=== PATIENT | female | born 2000 | race Caucasian/White ===

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

== ENCOUNTER 2021-03-16 08:58 | Emergency (ER) | payer OTHER, SELFPAY ==
[2021-03-16 08:59] VITALS: BP 147/108; PULSE 227; RESP 24; TEMP 36.4; O2SAT 99; BMI 21.9
[2021-03-16 09:01] VITALS: BMI 22.2
--- NOTE | 2021-03-16 09:02 | XR_ITS ---
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 The lungs are clear without infiltrates, suspicious nodules, or pleural effusions. Minimal midthoracic curvature convex right. IMPRESSION: No acute findings. Dictated by: Mohan Schneider MD 03/16/2021 09:57 Mohan Schneider MD in [place] 03/16/2021 09:57
[2021-03-16 09:24] VITALS: BP 147/118; PULSE 182; RESP 17; O2SAT 100
[2021-03-16 09:26] VITALS: BP 166/87; PULSE 172; RESP 20; O2SAT 100
[2021-03-16 09:30] VITALS: BP 145/103; PULSE 93; RESP 16
[2021-03-16 10:00] VITALS: BP 141/88; PULSE 92; RESP 20; O2SAT 100
--- NOTE | 2021-03-16 10:02 | HMH.CNCARD ---
History of Present Illness Consult date: 03/16/21 Requesting physician: Rolando Torres Consult reason: chest pain Chief complaint: SVT Additional Medical History:: 1. Bipolar disorder 2. Thyroid nodules, likely benign with no significant changes in size by ultrasound from 2017 to 2019 3. SVT A. Converted with adenosine 6 mg and then 12 mg IV on 03/16/2021 4. History of heart murmur as a child A. Echo, 08/2019, 1. Normal left ventricular size, preserved left ventricular systolic function, visually estimated ejection fraction 55% with no regional wall motion abnormality, diastolic parameters are within normal range. 2. Trace mitral and tricuspid regurgitation of no hemodynamic significance. 3. No significant pericardial effusion noted. Electronically signed by : Matty Bob, 08/27/2019 20:12:33 History of present illness: 20 yo WF seen in ER for acute onset of rapid HR, SOA and chest pain this AM. Seen in ER with telemetry showing narrow complex tachycardia with rate of 200 bpm. Asked to see the patient by ER due to ER MD involved in intubation in ICU. Pt was given adenosine 6 mg without response followed by 12 mg IV with subsequent conversion to NSR with rate in the 90's. Symptoms of chest pain and SOA resolved thereafter. Pt relates similar episodes over the past year. Denies excessive caffeine use or illegal drug use. Smokes cigarettes and vape daily. Denies alcohol use. [facility] History Medical History: Reports:: Heart Murmur Denies:: Cancer, Diabetes Mellitus Type 1, Diabetes Mellitus Type 2, Internal Pacemaker, MRSA, Seizures *Have you ever received a pneumonia vaccine?: No *Have you received a flu vaccine this season?: No Other Medical History: Reports: Other. Denies: Blood Transfusion Reaction Laterality Cases: Left: Other Other Surgeries: Yes: EGD. No: Pacemaker Amputation: No Fractures: No - *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 Smoking Status: Current every day smoker Tobacco Type: e-cigarettes # Packs/Day (cigarettes): 3 Alcohol Intake: never Alcohol Intake Frequency:: holidays/special occasions only Substance Use Type: denies use *Occupational Status:: employed Housing: house Household Members: family *Travel in the last 8 weeks: None Family Hx:: Cancer, Diabetes, Heart Attack, Hyperlipidemia, Hypertension, Kidney Disease, Stroke Meds Home Medications Medication Instructions Recorded Confirmed Type norethindrone 1 mg-ethin. 1 cap PO DAILY #28 cap 02/05/21 Rx estradiol 20 mcg (24)-iron 75 mg (4) capsule aripiprazole 5 mg tablet 5 mg PO QHS #30 tab 02/23/21 Rx Allergies Allergy/AdvReac Type Severity Reaction Status Date / Time erythromycin base Allergy Mild Verified 01/11/21 10:20 [ERYTHROMYCIN BASE] Exam I & O for Last 24 hours: Intake & Output 03/13/21 03/14/21 03/15/21 03/16/21 11:59 11:59 11:59 11:59 Weight 138 lb - Constitutional no acute distress - *Routine HEENT Exam Head: Present: normocephalic Eye: Present: EOMI, PERRL ENT: Present: mucous membranes moist - *Routine Neck Exam Present: supple. Absent: lymphadenopathy - *Routine Respiratory Exam Present: CTA bilaterally - *Routine Cardiovascular Exam Present: RRR - *Routine Abdominal Exam Present: soft, normoactive bowel sounds. Absent: tenderness - *Routine Extremities Exam Absent: cyanosis, clubbing, edema - *Routine Skin Exam Present: warm. Absent: rash - *Routine Neurological Exam Present: alert, oriented X3 Review of Systems - Review of Systems Review of systems:: pertinent systems reviewed and negative unless documented below Assessment and Plan (1) SVT (supraventricular tachycardia) Status: Acute Category: Medical Code(s): I47.1 - Supraventricular tachycardia (2) Bipolar disorder Status: Acute Category: Medical Code(s): F31.9 - Bipolar disorder, unspecified - Assessment and plan all Dx Assessment and Plan for all problems:: 1. SVT, converted with
[2021-03-16 10:08] LABS: Microscopic, Urine URINE MICROSCOPIC (MICROSCOPIC)
[2021-03-16 10:09] LABS: Basophils % 0.5 % (0.1-2.0); Eosinophils % 0.5 % (0.1-12.0); Hematocrit 40.9 % (37.0-47.0); Hemoglobin 13.4 g/dL (12.2-16.2); Lymphocytes # 1.2 K/mm3 (0.7-4.5); Mean Corpuscular HGB Conc 32.8 g/dL (31.8-35.4); Mean Corpuscular Hemoglobin 30.3 pg (27.0-31.2); Mean Corpuscular Volume 92.4 fl (81-99); Mean Platelet Volume 7.3 fl (7.4-10.4); Monocytes # 0.2 K/mm3 (0.1-1.0); Neutrophils # 4.3 K/mm3 (1.8-7.8); Platelet Count 297 K/mm3 (142-424); Red Blood Count 4.42 M/mm3 (4.20-5.40); Red Cell Distribution Width 12.3 % (11.5-17.5); White Blood Count 5.7 K/mm3 (4.5-13.0)
[2021-03-16 10:11] LABS: Appearance,Urine CLEAR (Clear); Bilirubin,Urine Negative (Negative); Blood, Urine Negative (Negative); Color,Urine YELLOW (Yellow); Glucose,Urine (UA) Negative (Negative); Ketones,Urine Negative (Negative); Leukocyte Esterase,Urine 1+ (Negative); Nitrate,Urine Negative (Negative); Protein,Urine Negative (Negative); Specific Gravity, Urine <= 1.005 (1.005-1.030); Urobilinogen,Urine 0.2 EU/dl (0.2)
[2021-03-16 10:14] LABS: Chloride 111 mmol/L (98-107); Potassium 4.2 mmoL/L (3.5-5.1); Sodium 143 mmol/L (136-145)
[2021-03-16 10:17] LABS: Anion Gap 14.2 mEq/L (5-15); Blood Urea Nitrogen 3 mg/dl (7-17); Calcium 8.6 mg/dl (8.4-10.2); Carbon Dioxide 22 mmol/L (22.0-30.0); Creatinine Clearance Estimated 128 mL/min (50-200); Estimated Glomerular Filt Rate 108 ml/min (>60); GFR (African American) 130 ML/MIN (>60); Glucose 94 mg/dl (74-100)
[2021-03-16 10:25] LABS: Bacteria,Urine Trace /lpf; RBC,Urine Occasional #/hpf (0-3)
--- NOTE | 2021-03-16 10:29 | HMH.EDGENADL ---
ED Disposition Clinical Impression: SVT (supraventricular tachycardia) Disposition: Home, Self-Care Condition on Discharge: Good Referrals: Tomás Coombs [Primary Care Provider] - 3 days J Luis Chan MD [Staff Physician] - (call for appt) Time of Disposition: 10:37 - Critical Care Critical Care Time: Yes Attestation: On 03/16/21, the high probability of a clinically significant, sudden or life threatening deterioration of the following system(s) required my full and direct attention, intervention and personal management. The time I documented below is in addition to time spent performing reported procedures but includes the following listed in this critical care notation. Total Critical Care Time: 35 Vital system(s) involved:: Circulatory Failure My critical care processes included: Assessment & monitoring of V/S, Initial and Re-exams, Data Review/Interpretation, Coordinating Care, Medication Orders and management, Documentation Medical Decision Making - Medical Records Medical records reviewed: Yes: I reviewed the patient's medical records. - Chuck Inquiry Pt receiving controlled substance: No Vital Signs: 03/16/21 08:59 03/16/21 09:24 03/16/21 09:26 Temperature 97.6 F Temperature Source Oral Pulse Rate 182 H 172 H Pulse Rate [Left Radial] 227 H Respiratory Rate 24 17 20 Blood Pressure 147/118 H 166/87 H Blood Pressure [Right Arm] 147/108 H Blood Pressure Mean 125 116 Blood Pressure Mean [Right Arm] 121 Blood Pressure Source [Right Arm] Automatic Cuff Blood Pressure Position [Right Arm] Sitting 02 Sat by Pulse Oximetry 99 100 100 Oxygen Delivery Method Room Air 03/16/21 09:30 03/16/21 10:00 Temperature Temperature Source Pulse Rate 93 H 92 H Pulse Rate [Left Radial] Respiratory Rate 16 20 Blood Pressure 145/103 H 141/88 H Blood Pressure [Right Arm] Blood Pressure Mean 112 103 Blood Pressure Mean [Right Arm] Blood Pressure Source [Right Arm] Blood Pressure Position [Right Arm] 02 Sat by Pulse Oximetry 100 Oxygen Delivery Method - Lab Data Lab results reviewed: Yes: I reviewed the patient's lab results. Lab Results 03/16/21 09:46: Urine Color Yellow, Urine Appearance Clear, Urine pH 7.0, Ur Specific Sterling <= 1.005, Urine Protein Negative, Urine Glucose (UA) Negative, Urine Ketones Negative, Urine Blood Negative, Urine Nitrate Negative, Urine Bilirubin Negative, Urine Urobilinogen 0.2, Ur Leukocyte Esterase 1+ A, Urine RBC Occasional, Urine WBC 3-5, Ur Squamous Epith Cells None, Urine Bacteria Trace 03/16/21 09:49: WBC 5.7, RBC 4.42, Hgb 13.4, Hct 40.9, MCV 92.4, MCH 30.3, MCHC 32.8, RDW 12.3, Plt Count 297, MPV 7.3 L, Neut % (Auto) 75.0, Lymph % (Auto) 21.0, Chaves % (Auto) 3.0, Eos % (Auto) 0.5, Baso % (Auto) 0.5, Neut # (Auto) 4.3, Lymph # (Auto) 1.2, Chaves # (Auto) 0.2, Eos # (Auto) 0.0, Baso # (Auto) 0.0 03/16/21 09:49: Sodium 143, Potassium 4.2, Chloride 111 H, Carbon Dioxide 22, Anion Gap 14.2, BUN 3 L, Creatinine 0.70, Estimated Creat Clear 128, Estimated GFR 108, Est GFR ( Amer) 130, Glucose 94, Calcium 8.6 Result diagrams: 03/16/21 09:49 03/16/21 09:49 Orders (Tests/Meds): ED MEDICATIONS Generic Name Dose Route Start Last Admin Trade Name Freq PRN Reason Stop Dose Admin Metoprolol Succinate 25 mg 03/16/21 10:15 03/16/21 10:13 Metoprolol Succinate Xl 25mg Tablet PO 04/15/21 10:14 25 mg DAILY REINA Administration Discontinued Medications Generic Name Dose Route Start Last Admin Trade Name Freq PRN Reason Stop Dose Admin Adenosine 6 mg 03/16/21 09:18 03/16/21 09:18 Adenosine 6mg/2ml Vial IV 03/16/21 09:19 6 mg ONCE ONE Administration Adenosine 12 mg 03/16/21 09:25 03/16/21 09:25 Adenosine 6mg/2ml Vial IV 03/16/21 09:26 12 mg ONCE ONE Administration Sodium Chloride 1,000 mls @ 999 mls/hr 03/16/21 09:15 03/16/21 09:15 Sod Chlor 0.9% 1000ml Bag IV 03/16/21 10:15 999 mls/hr .Q1H1M S
[2021-03-16 10:34] LABS: Troponin I < 0.01 ng/ml (0.00-0.034)
[2021-03-16 10:36] LABS: Free Thyroxine Index 3.1 ug/dL (5.93-13.13); T4 (Thyroxine) 11.5 ug/dl (5.53-11.0); Triiodothryronine (T3) Uptake 27 % (23.5-40.5)
[2021-03-16 10:46] VITALS: BP 137/93; PULSE 91; RESP 16; TEMP 36.8; O2SAT 98
[2021-03-16 10:50] LABS: Thyroid Stimulating Hormone 1.28 uIU/mL (0.465-4.68)
--- NOTE | 2021-03-17 08:55 | ECG_ITS ---
APPROVED REPORT Exam: Resting ECG HR:209 bpm ECG Measurements Heart Rate 209 AXES NE 120 P QRSd 86 QRS 86 QT 206 T -2 QTc 384 Conclusion Sinus tachycardia Nonspecific ST and T wave abnormality Abnormal ECG Electronically signed by : Jarocho Goel MD 03/17/2021 20:48:45
--- NOTE | 2021-03-17 09:31 | ECG_ITS ---
APPROVED REPORT Exam: Resting ECG HR:85 bpm ECG Measurements Heart Rate 85 AXES NV 154 P 37 QRSd 84 QRS 48 QT 386 T 26 QTc 459 Conclusion Normal sinus rhythm Nonspecific ST and T wave abnormality Abnormal ECG Electronically signed by : Jarocho Goel MD 03/17/2021 20:47:08
== END 2021-03-16 10:50 | disposition home or self-care (01) ==
PROVIDERS: Emergency Provider Family Medicine; PCP Internal Medicine
DX: I47.1 Supraventricular tachycardia (principal); R01.1 Cardiac murmur, unspecified; F17.290 Nicotine dependence, other tobacco product, uncomplicated; F31.9 Bipolar disorder, unspecified
CPT/HCPCS: 71045; 80048; 81001; 84436; 84443; 84479; 84484; 85025; 87086; 87088; 93005; 96365; 96375; 96376; 99283

== ENCOUNTER → 2021-08-11 17:19 | Outpatient (CLI) | payer OTHER, SELFPAY ==
[2021-08-11 19:43] LABS: Basophils # 0.1 K/mm3 (0-0.2); Basophils % 1.4 % (0.1-2.0); Eosinophils # 0.1 K/mm3 (0.0-0.4); Eosinophils % 2.1 % (0.1-12.0); Hematocrit 38.6 % (37.0-47.0); Hemoglobin 13.3 g/dL (12.2-16.2); Lymphocytes # 1.4 K/mm3 (0.7-4.5); Lymphocytes % 26.7 % (10-50); Mean Corpuscular HGB Conc 34.5 g/dL (31.8-35.4); Mean Corpuscular Volume 92.8 fl (81-99); Mean Platelet Volume 8.6 fl (7.4-10.4); Monocytes # 0.3 K/mm3 (0.1-1.0); Monocytes % 4.9 % (1.7-9.3); Neutrophils # 3.3 K/mm3 (1.8-7.8); Platelet Count 315 K/mm3 (142-424); Red Blood Count 4.16 M/mm3 (4.20-5.40); Red Cell Distribution Width 13.1 % (11.5-17.5); White Blood Count 5.1 K/mm3 (4.5-13.0)
[2021-08-11 19:49] LABS: Anion Gap 15.2 mEq/L (5-15); Blood Urea Nitrogen 11 mg/dl (7-17); Calcium 9.2 mg/dl (8.4-10.2); Carbon Dioxide 25 mmol/L (22.0-30.0); Chloride 102 mmol/L (98-107); Estimated Glomerular Filt Rate 127 ml/min (>60); GFR (African American) 154 ML/MIN (>60); Glucose 79 mg/dl (74-100); Potassium 4.2 mmoL/L (3.5-5.1); Sodium 138 mmol/L (136-145)
[2021-08-11 20:44] LABS: Ferritin 43.2 ng/ml (6.24-137)
== END ==
PROVIDERS: Visit Provider Internal Medicine
DX: G25.81 Restless legs syndrome (principal)
CPT/HCPCS: 80048; 82728; 85025

== ENCOUNTER 2021-12-10 00:12 | Emergency (ER) | payer OTHER, SELFPAY ==
[2021-12-10] VITALS (8 sets, daily range): BP systolic 131–186; BP diastolic 70–107; PULSE 67–80; RESP 16–22; TEMP 36.4–36.7; O2SAT 98–100; BMI 23.6
--- NOTE | 2021-12-10 00:12 | ECG_ITS ---
APPROVED REPORT Exam: Resting ECG HR:71 bpm ECG Measurements Heart Rate 71 AXES OK 127 P -76 QRSd 94 QRS 38 QT 391 T 30 QTc 414 Conclusion JUNCTIONAL RHYTHM INCOMPLETE RIGHT BUNDLE BRANCH BLOCK [90+ ms QRS DURATION, TERMINAL R IN V1/V2, 40+ ms S IN I/aVL/V4/V5/V6] MODERATE T-WAVE ABNORMALITY, CONSIDER ANTERIOR ISCHEMIA [-0.1+ mV T-WAVE IN V3/V4] ABNORMAL ECG UNCONFIRMED REPORT Electronically signed by : Jarocho Goel MD 12/10/2021 14:18:22
--- NOTE | 2021-12-10 00:17 | HMH.EDGENADL ---
ED Disposition Clinical Impression: Palpitations Chest pain Qualifiers: Chest pain type: other chest pain Qualified Code(s): R07.89 - Other chest pain Disposition: Home, Self-Care Condition on Discharge: Good Additional Instructions: Please collect your urine for 24 hours and return to lab as instructed. Follow-up with your primary care physician regarding results. Additionally, ask your primary care physician to follow-up on your abnormal TSH level, which is a lab value that may be reflective of an abnormal thyroid function. Follow-up with your scheduled ultrasound on the . If your condition worsens or any other concerns arise, please return to the emergency department for reassessment. - Critical Care Critical Care Time: No Attestation: On , the high probability of a clinically significant, sudden or life threatening deterioration of the following system(s) required my full and direct attention, intervention and personal management. The time I documented below is in addition to time spent performing reported procedures but includes the following listed in this critical care notation. Medical Decision Making - Medical Records Medical records reviewed: Yes: I reviewed the patient's medical records. - Chuck Inquiry Pt receiving controlled substance: No Vital Signs: 12/10/21 00:12 12/10/21 00:19 12/10/21 00:39 Temperature 97.5 F L 97.5 F L Temperature Source Oral Pulse Rate 80 67 Pulse Rate [Right Brachial] 76 Respiratory Rate 22 Blood Pressure 183/107 H 151/98 H Blood Pressure [Right Arm] 186/107 H Blood Pressure Mean [Right Arm] 133 Blood Pressure Source [Right Arm] Automatic Cuff Blood Pressure Position [Right Arm] Sitting 02 Sat by Pulse Oximetry 100 100 99 Oxygen Delivery Method Room Air 12/10/21 01:00 12/10/21 01:34 12/10/21 02:01 Temperature Temperature Source Pulse Rate 69 78 71 Pulse Rate [Right Brachial] Respiratory Rate Blood Pressure 147/79 H 156/95 H 143/78 H Blood Pressure [Right Arm] Blood Pressure Mean [Right Arm] Blood Pressure Source [Right Arm] Blood Pressure Position [Right Arm] 02 Sat by Pulse Oximetry 100 100 99 Oxygen Delivery Method - Lab Data Lab results reviewed: Yes: I reviewed the patient's lab results. Lab Results 12/10/21 00:20: WBC 6.1, RBC 4.71, Hgb 14.6, Hct 42.5, MCV 90.4, MCH 31.1, MCHC 34.4, RDW 12.6, Plt Count 304, MPV 8.0, Neut % (Auto) 50.7, Lymph % (Auto) 39.6, [place]k % (Auto) 4.5, Eos % (Auto) 1.0, Baso % (Auto) 4.1 H, Neut # (Auto) 3.1, Lymph # (Auto) 2.4, [place]k # (Auto) 0.3, Eos # (Auto) 0.1, Baso # (Auto) 0.3 H 12/10/21 00:20: Sodium 139, Potassium 3.3 L, Chloride 104, Carbon Dioxide 26, Anion Gap 12.3, BUN 8, Creatinine 0.60, Estimated Creat Clear 156, Estimated GFR 127, Est GFR ( Amer) 154, Glucose 102 H, Calcium 9.6, Troponin I < 0.01, TSH 6.76 H 12/10/21 00:20: D-Dimer 0.47 12/10/21 00:20: NT-Pro-B Natriuret Pep 39.6 12/10/21 00:20: Serum HCG, Qual Negative Result diagrams: 12/10/21 00:20 12/10/21 00:20 Orders (Tests/Meds): ED MEDICATIONS Discontinued Medications Generic Name Dose Route Start Last Admin Trade Name Seng PRN Reason Stop Dose Admin Iopamidol 75 ml 12/10/21 01:33 12/10/21 01:34 Iopamidol-370 (76%);100ml Bottle IV 12/10/21 01:34 75 ml ONCE ONE Administration Sodium Chloride 10 ml 12/10/21 01:33 12/10/21 01:34 Sodium Chloride 0.9% 10ml Syr (Rad Only) IV 12/10/21 01:34 10 ml ONCE ONE Administration ORDERS Category Date Time Status Troponin I Q3H Lab 12/10/21 03:30 Ordered Troponin I Q3H Lab 12/10/21 06:30 Ordered Medical Decision Narrative: Patient is a 21-year-old female presenting with a chief complaint of palpitations, chest pain, shortness of breath. Associated symptoms include hypertension, presyncope, flushing and feeling anxious. Episodes have been ongoing for 1 year. Differential diagnosis includes, but is not limited
--- NOTE | 2021-12-10 00:20 | XR_ITS ---
PROCEDURE INFORMATION: Exam: XR Chest Exam date and time: 12/10/2021 12:32 AM Age: 21 years old Clinical indication: Sternal or substernal pain; Additional info: Chest pain TECHNIQUE: Imaging protocol: XR of the chest. Views: 2 views. COMPARISON: CR XR CHEST PORTABLE 03/16/2021 9:36 AM FINDINGS: Lungs: Unremarkable. No consolidation. Pleural spaces: Unremarkable. No pleural effusion. No pneumothorax. Heart/Mediastinum: Unremarkable. No cardiomegaly. Bones/joints: Unremarkable. IMPRESSION: No acute cardiopulmonary abnormality.
[2021-12-10 00:30] LABS: Basophils # 0.3 K/mm3 (0-0.2); Basophils % 4.1 % (0.1-2.0); Eosinophils # 0.1 K/mm3 (0.0-0.4); Hematocrit 42.5 % (37.0-47.0); Hemoglobin 14.6 g/dL (12.2-16.2); Lymphocytes # 2.4 K/mm3 (0.7-4.5); Lymphocytes % 39.6 % (10-50); Mean Corpuscular HGB Conc 34.4 g/dL (31.8-35.4); Mean Corpuscular Hemoglobin 31.1 pg (27.0-31.2); Mean Corpuscular Volume 90.4 fl (81-99); Monocytes # 0.3 K/mm3 (0.1-1.0); Monocytes % 4.5 % (1.7-9.3); Neutrophils # 3.1 K/mm3 (1.8-7.8); Neutrophils % 50.7 % (37.0-80.0); Platelet Count 304 K/mm3 (142-424); Red Blood Count 4.71 M/mm3 (4.20-5.40); Red Cell Distribution Width 12.6 % (11.5-17.5); White Blood Count 6.1 K/mm3 (4.5-13.0)
[2021-12-10 00:39] LABS: Anion Gap 12.3 mEq/L (5-15); Blood Urea Nitrogen 8 mg/dl (7-17); Calcium 9.6 mg/dl (8.4-10.2); Carbon Dioxide 26 mmol/L (22.0-30.0); Chloride 104 mmol/L (98-107); Creatinine Clearance Estimated 156 mL/min (50-200); Estimated Glomerular Filt Rate 127 ml/min (>60); GFR (African American) 154 ML/MIN (>60); Glucose 102 mg/dl (74-100); Potassium 3.3 mmoL/L (3.5-5.1); Sodium 139 mmol/L (136-145)
[2021-12-10 00:44] LABS: D-Dimer 0.47 ug/mL (0.0-0.5)
[2021-12-10 00:50] LABS: NT Pro Brain Natriuretic Pep. 39.6 pg/mL (0-125)
[2021-12-10 00:52] LABS: HCG Qualitative, Serum Negative (Negative)
[2021-12-10 01:01] LABS: Troponin I < 0.01 ng/ml (0.00-0.034)
--- NOTE | 2021-12-10 01:05 | CT_ITS ---
PROCEDURE INFORMATION: Exam: CT Abdomen And Pelvis With Contrast Exam date and time: 12/10/2021 1:20 AM Age: 21 years old Clinical indication: Screening exam; Other: Assess for adrenal abnormality TECHNIQUE: Imaging protocol: Computed tomography of the abdomen and pelvis with contrast. Radiation optimization: All CT scans at this facility use at least one of these dose optimization techniques: automated exposure control; mA and/or kV adjustment per patient size (includes targeted exams where dose is matched to clinical indication); or iterative reconstruction. Contrast material: ISOVUE; Contrast volume: 75 ml; Contrast route: IV; COMPARISON: US ABDOMEN COMPLETE 07/10/2020 10:49 AM FINDINGS: Lungs: Clear basilar lung parenchyma. Pleural spaces: No pleural fluid. Heart: Normal heart size. Liver: Normal. No mass. Gallbladder and bile ducts: Tiny gallstone noted in the contracted postprandial gallbladder. No biliary tree dilation. Pancreas: Normal. No ductal dilation. Spleen: Normal. No splenomegaly. Adrenal glands: Normal. No mass. Kidneys and ureters: Kidneys enhance symmetrically and demonstrate no evidence of mass, calculus, obstruction, or inflammation. Stomach and bowel: Postprandial stomach. Normal caliber small bowel. Normal colon. Appendix: Normal appendix is confirmed. Intraperitoneal space: Unremarkable. No free air. No significant fluid collection. Vasculature: Unremarkable. No abdominal aortic aneurysm. Lymph nodes: Unremarkable. No enlarged lymph nodes. Urinary bladder: Unremarkable as visualized. Reproductive: Unremarkable as visualized. Bones/joints: Unremarkable. No acute fracture. Soft tissues: Unremarkable. IMPRESSION: There is a tiny gallstone in the contracted gallbladder. Otherwise, exam is normal. Normal adrenals.
[2021-12-10 01:11] LABS: Thyroid Stimulating Hormone 6.76 uIU/mL (0.465-4.68)
== END 2021-12-10 02:57 | disposition home or self-care (01) ==
PROVIDERS: Emergency Provider Emergency Medicine; PCP Internal Medicine
DX: R00.2 Palpitations (principal); R07.89 Other chest pain; R06.02 Shortness of breath; Z72.0 Tobacco use; Z80.9 Family history of malignant neoplasm, unspecified; Z82.3 Family history of stroke; Z83.438 Family history of other disorder of lipoprotein metabolism and other lipidemia; Z82.49 Family history of ischemic heart disease and other diseases of the circulatory system; Z84.1 Family history of disorders of kidney and ureter
CPT/HCPCS: 71046; 74177; 80048; 83880; 84443; 84484; 84703; 85025; 85378; 93005; 99284; Q9967

== ENCOUNTER 2021-12-11 16:25 | Emergency (ER) | payer OTHER, SELFPAY ==
[2021-12-11 16:27] VITALS: BP 146/89; PULSE 74; RESP 16; O2SAT 98; BMI 22.8
--- NOTE | 2021-12-11 16:36 | ECG_ITS ---
APPROVED REPORT Exam: Resting ECG HR:71 bpm ECG Measurements Heart Rate 71 AXES AL 130 P -75 QRSd 97 QRS 34 QT 412 T 27 QTc 434 Conclusion JUNCTIONAL RHYTHM POSSIBLE RIGHT VENTRICULAR CONDUCTION DELAY [RSR (QR) IN V1/V2] ABNORMAL RHYTHM ECG UNCONFIRMED REPORT Electronically signed by : Jarocho Goel MD 12/14/2021 22:22:16
--- NOTE | 2021-12-11 16:42 | HMH.EDGENADL ---
ED Disposition Clinical Impression: Atypical chest pain Disposition: Home, Self-Care Condition on Discharge: Good Additional Instructions: Follow-up with your primary care provider, call Monday to make appointment. Additional instructions for CHEST PAIN: See your physician as soon as possible for further evaluation. Return immediately if worsening chest pain, vomiting, shortness of breath, fever, coughing of blood. Referrals: Tomás Coombs MD [Primary Care Provider] - - Critical Care Critical Care Time: No Attestation: On 12/11/21, the high probability of a clinically significant, sudden or life threatening deterioration of the following system(s) required my full and direct attention, intervention and personal management. The time I documented below is in addition to time spent performing reported procedures but includes the following listed in this critical care notation. Medical Decision Making - Medical Records Medical records reviewed: Yes: I reviewed the patient's medical records. Comment: Reviewed patient's emergency department note from yesterday. Reviewed lab results. She had an extensive work-up including cardiac work-up, D-dimer, thyroid profile, abdominal CT to rule out pheochromocytoma. Work-up unremarkable, thyroid functions minimally abnormal and advised to follow-up. - Chuck Inquiry Pt receiving controlled substance: No Vital Signs: 12/11/21 16:27 12/11/21 16:48 12/11/21 17:00 Pulse Rate 72 74 Pulse Rate [Radial] 74 Respiratory Rate 16 Blood Pressure 154/78 H 150/105 H Blood Pressure [Right Arm] 146/89 H Blood Pressure Mean [Right Arm] 108 Blood Pressure Position [Right Arm] Sitting 02 Sat by Pulse Oximetry 98 99 99 Oxygen Delivery Method Room Air 12/11/21 17:31 Pulse Rate 68 Pulse Rate [Radial] Respiratory Rate Blood Pressure 143/75 H Blood Pressure [Right Arm] Blood Pressure Mean [Right Arm] Blood Pressure Position [Right Arm] 02 Sat by Pulse Oximetry 98 Oxygen Delivery Method - Lab Data Lab Results 12/11/21 16:50: WBC 6.1, RBC 4.71, Hgb 14.8, Hct 42.0, MCV 89.2, MCH 31.4 H, MCHC 35.2, RDW 12.6, Plt Count 325, MPV 8.2, Neut % (Auto) 72.8, Lymph % (Auto) 20.6, Jackson % (Auto) 4.7, Eos % (Auto) 0.4, Baso % (Auto) 1.6, Neut # (Auto) 4.4, Lymph # (Auto) 1.3, Jackson # (Auto) 0.3, Eos # (Auto) 0.0, Baso # (Auto) 0.1 12/11/21 16:50: Sodium 139, Potassium 3.3 L, Chloride 106, Carbon Dioxide 21 L, Anion Gap 15.3 H, BUN 6 L, Creatinine 0.60, Estimated Creat Clear 156, Estimated GFR 127, Est GFR ( Amer) 154, Glucose 121 H, Calcium 9.3, Total Bilirubin 0.6, AST 26, ALT 19, Alkaline Phosphatase 47, Total Protein 7.7, Albumin 4.7, Globulin 3.0, Albumin/Globulin Ratio 1.6 12/11/21 16:53: POC Glucose 103 Result diagrams: 12/11/21 16:50 12/11/21 16:50 Orders (Tests/Meds): ED MEDICATIONS Discontinued Medications Generic Name Dose Route Start Last Admin Trade Name Freq PRN Reason Stop Dose Admin Potassium Chloride 40 meq 12/11/21 18:33 Potassium Chloride 20meq Tab PO 12/11/21 18:34 ONCE ONE - ECG Data Tracing #1 EKG interpreted by Kwadwo Monae MD: Rhythm: Supraventricular rhythm with abnormal P wave axis Rate: 71 [place]: normal Ectopy: none Conduction: normal ST Segment Changes: none T Wave Changes: none Q Waves: none No evidence of acute ischemia or injury Medical Decision Narrative: Symptoms have been ongoing for 1 year. Extensive work-up yesterday. I do not feel all aspects of the work-up need to be repeated today. EKG is unchanged. Potassium is minimally low, she will be given a dose of potassium and advised to increase potassium intake at home as instructed. Follow-up with primary care provider on Monday. General Adult HPI - General Stated complaint: weakness SOB SCANLON Time Seen by Provider: 12/11/21 18:25 - History of Present Illness HPI narrative: Patient states that for the past 2 weeks
[2021-12-11 16:48] VITALS: BP 154/78; PULSE 72; O2SAT 99
[2021-12-11 17:00] VITALS: BP 150/105; PULSE 74; O2SAT 99
[2021-12-11 17:03] LABS: POC Glucose,Bedside 103 (70-110)
[2021-12-11 17:31] VITALS: BP 143/75; PULSE 68; O2SAT 98
[2021-12-11 18:23] LABS: Basophils # 0.1 K/mm3 (0-0.2); Basophils % 1.6 % (0.1-2.0); Eosinophils % 0.4 % (0.1-12.0); Hemoglobin 14.8 g/dL (12.2-16.2); Lymphocytes # 1.3 K/mm3 (0.7-4.5); Lymphocytes % 20.6 % (10-50); Mean Corpuscular HGB Conc 35.2 g/dL (31.8-35.4); Mean Corpuscular Hemoglobin 31.4 pg (27.0-31.2); Mean Corpuscular Volume 89.2 fl (81-99); Mean Platelet Volume 8.2 fl (7.4-10.4); Monocytes # 0.3 K/mm3 (0.1-1.0); Monocytes % 4.7 % (1.7-9.3); Neutrophils # 4.4 K/mm3 (1.8-7.8); Neutrophils % 72.8 % (37.0-80.0); Platelet Count 325 K/mm3 (142-424); Red Blood Count 4.71 M/mm3 (4.20-5.40); Red Cell Distribution Width 12.6 % (11.5-17.5); White Blood Count 6.1 K/mm3 (4.5-13.0)
[2021-12-11 18:24] LABS: Chloride 106 mmol/L (98-107); Potassium 3.3 mmoL/L (3.5-5.1); Sodium 139 mmol/L (136-145)
[2021-12-11 18:27] LABS: Alanine Aminotransferase 19 U/L (12-78); Albumin Level 4.7 g/dl (3.5-5.0); Albumin/Globulin Ratio 1.6 (1.1-1.8); Alkaline Phosphatase 47 U/L (38-126); Anion Gap 15.3 mEq/L (5-15); Aspartate Amino Transferase 26 U/L (14-36); Bilirubin,Total 0.6 mg/dl (0.2-1.3); Blood Urea Nitrogen 6 mg/dl (7-17); Carbon Dioxide 21 mmol/L (22.0-30.0); Creatinine Clearance Estimated 156 mL/min (50-200); Estimated Glomerular Filt Rate 127 ml/min (>60); GFR (African American) 154 ML/MIN (>60); Total Protein,Serum 7.7 g/dl (6.3-8.2)
[2021-12-11 18:28] LABS: Calcium 9.3 mg/dl (8.4-10.2); Glucose 121 mg/dl (74-100)
[2021-12-11 18:45] VITALS: BP 123/89; PULSE 78; RESP 16; TEMP 36.6; O2SAT 98
== END 2021-12-11 18:46 | disposition home or self-care (01) ==
PROVIDERS: Emergency Provider Emergency Medicine; PCP Internal Medicine
DX: R07.89 Other chest pain (principal); R42 Dizziness and giddiness; I47.1 Supraventricular tachycardia; R06.02 Shortness of breath; R53.1 Weakness; R51.9 Headache, unspecified; R01.1 Cardiac murmur, unspecified; F17.210 Nicotine dependence, cigarettes, uncomplicated; Z79.899 Other long term (current) drug therapy; Z88.0 Allergy status to penicillin; Z88.3 Allergy status to other anti-infective agents; Z82.49 Family history of ischemic heart disease and other diseases of the circulatory system; Z83.438 Family history of other disorder of lipoprotein metabolism and other lipidemia; Z84.1 Family history of disorders of kidney and ureter; Z83.3 Family history of diabetes mellitus; Z80.9 Family history of malignant neoplasm, unspecified
CPT/HCPCS: 80053; 82962; 85025; 93005; 99284

== ENCOUNTER → 2021-12-17 10:10 | Outpatient (CLI) | payer OTHER, SELFPAY ==
--- NOTE | 2021-12-17 | CA_ITS ---
APPROVED REPORT EXAM: Comprehensive 2D, Doppler, and color-flow Echocardiogram Turning Sander Tender: Mary Denise, RT(R) Ht: 5 ft 5 in Wt: 141lbs BSA: 1.71 BP: 143/75 mmHg Indications: CP, SVT, palpitations, murmur Echo Enhancing Agent Indication: Rule Out Septal Defect Agent(s) / Amount(s) Used: Agitated Saline 15 cc 2D Dimensions LA Volume 30.10 mL LA Volume Index 17.70 mL/m2 (M/F) 16-34 M-Mode Dimensions RVDd 2.15 cm (0.9-2.6) LA Diam 1.85 cm (1.9-4.0) LVDd 4.33 cm (3.5-5.7) Ao Diam 2.59 cm (2.0-3.7) LVDs 3.24 cm (3.5-5.7) IVSd 0.78 cm (0.6-1.1) PWd 0.62 cm (0.6-1.1) EF (Teich) 50.00% FS 25.20% EDV (Teich) 84.40 mL ESV (Teich) 42.20 mL LV Diastology E Decel Time 130.00 (160-240 msec) E/A Ratio 1.1 MED E' 12.10 (< 7 cm/sec) E'/MED E' Ratio 8.95 (>14) LAT E' 16.10 (<10 cm/sec) E/LAT E' Ratio 6.73 (>14) Mitral Valve MV E Max Giovani. 108.00 (40-130 cm/s) MV A Velocity 98.00 (40-130 cm/s) E/A Ratio 1.11 MV Decel. Time 130.00 (160-240 ms) MV PHT 38.00 ms Left Ventricle Left atrium is normal size, left ventricle is normal size there is no concentric left ventricular hypertrophy, estimated ejection fraction 55% with no regional wall motion abnormality, start parameters are within normal range. Right Ventricle Right atrium and right ventricle are normal size and contractility. Atria Intra-atrial septum is intact, there is no flow across the interatrial septum, agitated saline contrast study did not identify intracardiac shunt. Aortic Valve Aortic valve is not well visualized, there is no aortic stenosis. No aortic insufficiency. Mitral Valve Mitral valve grossly normal. There is trace mitral regurgitation. Tricuspid Valve Tricuspid valve grossly normal, there is trace tricuspid regurgitation, tricuspid regurgitation jet velocity is inadequate for calculation of the right ventricular systolic pressure. Pulmonic Valve Pulmonic valve is poorly visualized. Great Vessels Aortic root is normal size. Inferior vena cava normal size with normal inspiratory collapse. Pericardium No significant pericardial effusion noted. Conclusion 1. Normal left ventricular size preserved left ventricular systolic function, estimated ejection fraction 55% with no regional wall motion abnormality, diastolic parameters are within normal range. 2. Trace mitral and tricuspid regurgitation. 3. No evidence of intracardiac shunt or atrial septal defect. Electronically signed by : Matty Bob MD 12/17/2021 16:08:18
== END ==
PROVIDERS: PCP Physician Assistant; Visit Provider Physician Assistant
DX: R00.2 Palpitations (principal)
CPT/HCPCS: 93225; 93306

== ENCOUNTER → 2021-12-17 14:24 | Outpatient (CLI) | payer OTHER, SELFPAY ==
--- NOTE | 2021-12-17 14:28 | US_ITS ---
FINAL REPORT CLINICAL HISTORY: THYROID NODULE COMPARISON: 08/27/2019 FINDINGS: Sonographic images of the thyroid were obtained. The right lobe of the thyroid measures 1.6 x 4.6 x 1.9 cm. The left lobe of the thyroid measures 1.1 x 4.2 x 1.7 cm. The isthmus is normal. There are bilateral thyroid lobe nodules, largest on the right measures 8 x 3 x 3 mm and appears cystic with a small calcification. This is consistent with TI-RADS category 2. Other less than 5 mm nodules are identified. IMPRESSION: Bilateral thyroid nodules. Overall findings are similar to previous. Reviewed, Interpreted and Dictated by Rk Weston III, MD Transcribed by Lyn Morales Authenticated and [facility]
== END ==
PROVIDERS: PCP Physician Assistant; Visit Provider Physician Assistant
DX: R07.9 Chest pain, unspecified (principal); E04.1 Nontoxic single thyroid nodule
CPT/HCPCS: 76536

== ENCOUNTER → 2021-12-22 14:38 | Outpatient (CLI) | payer OTHER, SELFPAY | PROVIDERS: PCP Physician Assistant; Visit Provider Internal Medicine | DX: R06.00 Dyspnea, unspecified (principal); R07.89 Other chest pain; R00.2 Palpitations; R42 Dizziness and giddiness; R94.31 Abnormal electrocardiogram [ECG] [EKG]; Z86.79 Personal history of other diseases of the circulatory system | CPT/HCPCS: 93270 ==

== ENCOUNTER 2022-01-05 20:41 | Emergency (ER) | payer OTHER, SELFPAY ==
[2022-01-05 20:43] VITALS: BP 153/90; PULSE 72; RESP 17; TEMP 36.6; O2SAT 100; BMI 21.9
--- NOTE | 2022-01-05 22:00 | ECG_ITS ---
APPROVED REPORT Exam: Resting ECG HR:68 bpm ECG Measurements Heart Rate 68 AXES NC 121 P 141 QRSd 89 QRS -1 QT 388 T 37 QTc 406 Conclusion ECTOPIC ATRIAL RHYTHM WITH OCCASIONAL SUPRAVENTRICULAR PREMATURE COMPLEXES LOW QRS VOLTAGE IN PRECORDIAL LEADS [QRS DEFLECTION < 1.0 mV IN CHEST LEADS] ABNORMAL RHYTHM ECG UNCONFIRMED REPORT Electronically signed by : Jarocho Goel MD 01/06/2022 17:40:54
[2022-01-05 22:01] VITALS: BP 153/90; PULSE 82; O2SAT 99
--- NOTE | 2022-01-05 22:14 | XR_ITS ---
PROCEDURE INFORMATION: Exam: XR Chest Exam date and time: 01/05/2022 10:13 PM Age: 21 years old Clinical indication: Patient HX: Shortness of breath, patient vapes. Shielded with lead apron. ; Additional info: SOA TECHNIQUE: Imaging protocol: Radiologic exam of the chest. Views: 2 views. COMPARISON: CR XR CHEST 2V 12/10/2021 12:32 AM FINDINGS: Lungs: No consolidation. Pleural spaces: No pneumothorax. Heart/Mediastinum: No cardiomegaly. Bones/joints: No acute fracture. IMPRESSION: No acute findings.
--- NOTE | 2022-01-05 22:33 | HMH.EDSOB ---
ED Disposition Clinical Impression: UTI (urinary tract infection) Qualifiers: Urinary tract infection type: site unspecified Hematuria presence: without hematuria Qualified Code(s): N39.0 - Urinary tract infection, site not specified Disposition: Home, Self-Care Condition on Discharge: Good Instructions: DI for Urinary Tract Infection (UTI) Additional Instructions: fluids and use meds and call pcp for follow up and urine culture Prescriptions: levoFLOXacin [Levaquin 500mg tab] 500 mg PO DAILY #7 tab Transmission Status: Pending to [facility] Referrals: Destiny Seymour PA [Primary Care Provider] - - Critical Care Critical Care Time: No Attestation: On 01/05/22, the high probability of a clinically significant, sudden or life threatening deterioration of the following system(s) required my full and direct attention, intervention and personal management. The time I documented below is in addition to time spent performing reported procedures but includes the following listed in this critical care notation. Medical Decision Making - Medical Records Medical records reviewed: Yes: I reviewed the patient's medical records. - Chuck Inquiry Pt receiving controlled substance: No Vital Signs: 01/05/22 20:43 01/05/22 22:01 Temperature 97.9 F Temperature Source Oral Pulse Rate 82 Pulse Rate [Right] 72 Respiratory Rate 17 Blood Pressure 153/90 H Blood Pressure [Right Arm] 153/90 H Blood Pressure Mean [Right Arm] 111 Blood Pressure Source [Right Arm] Automatic Cuff 02 Sat by Pulse Oximetry 100 99 Oxygen Delivery Method Room Air Room Air - Lab Data Lab results reviewed: Yes: I reviewed the patient's lab results. Lab Results 01/05/22 21:53: SARS-CoV-2 (PCR) Not detected, Influenza A Untype (PCR) Not detected, Influenza Type B (PCR) Not detected 01/05/22 22:10: WBC 5.4, RBC 4.26, Hgb 13.3, Hct 36.9 L, MCV 86.6, MCH 31.2, MCHC 36.1 H, RDW 11.9, Plt Count 271, MPV 7.2 L, Neut % (Auto) 63.6, Lymph % (Auto) 29.3, [place] % (Auto) 5.1, Eos % (Auto) 1.7, Baso % (Auto) 0.4, Neut # (Auto) 3.4, Lymph # (Auto) 1.6, [place] # (Auto) 0.3, Eos # (Auto) 0.1, Baso # (Auto) 0.0, ESR 15 01/05/22 22:10: Magnesium 1.8, Troponin I < 0.01, C-Reactive Protein 4.7 H, NT-Pro-B Natriuret Pep 28.8, Procalcitonin < 0.030, TSH 2.14, Thyroxine (T4) 11.7 H 01/05/22 22:10: Serum HCG, Qual Negative 01/05/22 22:10: Monoscreen Negative 01/05/22 22:10: Lactate 2.4 H 01/05/22 22:10: Sodium 139, Potassium 3.6, Chloride 105, Carbon Dioxide 24, Anion Gap 13.6, BUN 4 L, Creatinine 0.70, Estimated Creat Clear 129, Estimated GFR 107, Est GFR ( Amer) 129, Glucose 131 H, Calcium 9.0, Total Bilirubin 0.2, Direct Bilirubin 0.0, Conjugated Bilirubin 0.0, Indirect Bilirubin 0.2, Unconjugated Bilirubin 0.4, AST 25, ALT 15, Alkaline Phosphatase 62, Total Protein 7.1, Albumin 4.2 01/05/22 22:37: Urine Color Yellow, Urine Appearance Sl cloudy, Urine pH 6.5, Ur Specific [place] 1.025, Urine Protein Negative, Urine Glucose (UA) Negative, Urine Ketones Negative, Urine Blood Negative, Urine Nitrate Negative, Urine Bilirubin Negative, Urine Urobilinogen 1.0, Ur Leukocyte Esterase 3+ A, Urine WBC 10-20, Ur Squamous Epith Cells 3-5, Urine Bacteria 1+ Result diagrams: 01/05/22 22:10 01/05/22 22:10 Orders (Tests/Meds): ED MEDICATIONS Generic Name Dose Route Start Last Admin Trade Name Freq PRN Reason Stop Dose Admin Sodium Chloride 1,000 mls @ 999 mls/hr 01/05/22 22:30 01/05/22 23:08 Sod Chlor 0.9% 1000ml Bag IV 01/05/22 23:30 999 mls/hr .Q1H1M REINA Administration Ceftriaxone Sodium 1 gm/ 50 mls @ 100 mls/hr 01/05/22 23:30 01/05/22 23:30 Sodium Chloride IV 01/19/22 23:29 100 mls/hr Q24H REINA Administration ORDERS Category Date Time Status Troponin I Q3H Lab 01/06/22 01:15 Ordered Troponin I Q3H Lab 01/06/22 04:15 Ordered Blood Culture Stat Micro 01/05/22 22:10 Received Urine Culture Stat Micro 01/05/22 22:37
[2022-01-05 22:35] LABS: Coronavirus 19, PCR Not Detected (NotDetected); Influenza A, PCR Not Detected (NotDetected); Influenza B, PCR Not Detected (NotDetected)
[2022-01-05 22:39] LABS: Basophils % 0.4 % (0.1-2.0); Eosinophils # 0.1 K/mm3 (0.0-0.4); Eosinophils % 1.7 % (0.1-12.0); Hematocrit 36.9 % (37.0-47.0); Hemoglobin 13.3 g/dL (12.2-16.2); Lymphocytes # 1.6 K/mm3 (0.7-4.5); Lymphocytes % 29.3 % (10-50); Mean Corpuscular HGB Conc 36.1 g/dL (31.8-35.4); Mean Corpuscular Hemoglobin 31.2 pg (27.0-31.2); Mean Corpuscular Volume 86.6 fl (81-99); Mean Platelet Volume 7.2 fl (7.4-10.4); Monocytes # 0.3 K/mm3 (0.1-1.0); Monocytes % 5.1 % (1.7-9.3); Neutrophils # 3.4 K/mm3 (1.8-7.8); Neutrophils % 63.6 % (37.0-80.0); Platelet Count 271 K/mm3 (142-424); Red Blood Count 4.26 M/mm3 (4.20-5.40); Red Cell Distribution Width 11.9 % (11.5-17.5); White Blood Count 5.4 K/mm3 (4.5-13.0)
[2022-01-05 22:41] LABS: Microscopic, Urine URINE MICROSCOPIC (MICROSCOPIC)
[2022-01-05 22:42] LABS: HCG Qualitative, Serum Negative (Negative); Monoscreen (Rapid) Negative (Negative)
[2022-01-05 22:45] LABS: Alanine Aminotransferase 15 U/L (12-78); Albumin Level 4.2 g/dl (3.5-5.0); Alkaline Phosphatase 62 U/L (38-126); Anion Gap 13.6 mEq/L (5-15); Aspartate Amino Transferase 25 U/L (14-36); Bilirubin,Indirect 0.2 mg/dL (0.0-0.9); Bilirubin,Total 0.2 mg/dl (0.2-1.3); Bilirubin,Unconjugated 0.4 mg/dL (0.0-1.1); Blood Urea Nitrogen 4 mg/dl (7-17); Carbon Dioxide 24 mmol/L (22.0-30.0); Chloride 105 mmol/L (98-107); Creatinine Clearance Estimated 129 mL/min (50-200); Estimated Glomerular Filt Rate 107 ml/min (>60); GFR (African American) 129 ML/MIN (>60); Glucose 131 mg/dl (74-100); Magnesium 1.8 mg/dl (1.6-2.3); Potassium 3.6 mmoL/L (3.5-5.1); Sodium 139 mmol/L (136-145); Total Protein,Serum 7.1 g/dl (6.3-8.2)
[2022-01-05 22:50] LABS: C-Reactive Protein 4.7 mg/L (0-4)
[2022-01-05 22:50] LABS: Appearance,Urine SL CLOUDY (Clear); Bilirubin,Urine Negative (Negative); Blood, Urine Negative (Negative); Color,Urine YELLOW (Yellow); Glucose,Urine (UA) Negative (Negative); Ketones,Urine Negative (Negative); Leukocyte Esterase,Urine 3+ (Negative); Nitrate,Urine Negative (Negative); PH,Urine 6.5 (5.0-8.5); Protein,Urine Negative (Negative); Specific Gravity, Urine 1.025 (1.005-1.030)
[2022-01-05 22:54] LABS: Lactic Acid 2.4 mmol/L (0.7-2.1)
[2022-01-05 23:00] LABS: NT Pro Brain Natriuretic Pep. 28.8 pg/mL (0-125)
[2022-01-05 23:04] LABS: T4 (Thyroxine) 11.7 ug/dl (5.53-11.0)
[2022-01-05 23:13] LABS: Procalcitonin < 0.030 ng/mL (0.0-2.0); Troponin I < 0.01 ng/ml (0.00-0.034)
[2022-01-05 23:15] LABS: Erythrocyte Sedimentation Rate 15 mm/hr (0-20)
[2022-01-05 23:18] LABS: Thyroid Stimulating Hormone 2.14 uIU/mL (0.465-4.68)
[2022-01-05 23:26] LABS: Bacteria,Urine 1+ /lpf
[2022-01-05 23:56] VITALS: BP 144/91; PULSE 67; O2SAT 100
[2022-01-06 00:19] VITALS: BP 130/78; PULSE 88; RESP 18; TEMP 36.9; O2SAT 99
== END 2022-01-06 00:20 | disposition home or self-care (01) ==
PROVIDERS: Emergency Provider Emergency Medicine; PCP Physician Assistant
DX: N39.0 Urinary tract infection, site not specified (principal); R20.2 Paresthesia of skin; R07.89 Other chest pain; R42 Dizziness and giddiness; R11.0 Nausea
CPT/HCPCS: 71046; 80048; 80076; 81001; 83605; 83735; 83880; 84145; 84436; 84443; 84484; 84703; 85025; 85651; 86140; 86318; 87040; 87086; 93005; 96365; 99284; C9803; J0696; U0003; U0005

== ENCOUNTER 2022-01-09 11:01 | Emergency (ER) | payer OTHER, SELFPAY ==
--- NOTE | 2022-01-09 10:58 | ECG_ITS ---
APPROVED REPORT Exam: Resting ECG HR:91 bpm ECG Measurements Heart Rate 91 AXES QRSd 89 QRS 27 QT 366 T -3 QTc 414 Conclusion NSR with isolated PVC O/w normal ecg UNCONFIRMED REPORT Electronically signed by : Jarocho Goel MD 01/10/2022 14:02:38
[2022-01-09 11:01] VITALS: BP 172/99; PULSE 96; RESP 22; TEMP 37.1; O2SAT 98; BMI 22.7
--- NOTE | 2022-01-09 11:02 | HMH.EDGENADL ---
ED Disposition Clinical Impression: Supraventricular arrhythmia Disposition: Home, Self-Care Condition on Discharge: Good Additional Instructions: Start taking bisoprolol [address] Chan in the office this 01/11/2022 at 11 AM. Prescriptions: Bisoprolol Fumarate [Bisoprolol 5mg Tablet] 5 mg PO DAILY #30 tab Transmission Status: Received by [facility] Referrals: Destiny Seymour PA [Primary Care Provider] - Forms: Work/School Release - Critical Care Critical Care Time: No Attestation: On , the high probability of a clinically significant, sudden or life threatening deterioration of the following system(s) required my full and direct attention, intervention and personal management. The time I documented below is in addition to time spent performing reported procedures but includes the following listed in this critical care notation. Medical Decision Making - Medical Records Medical records reviewed: Yes: I reviewed the patient's medical records. MR Comment: Reviewed emergency department note from 01/05/2022. Reviewed cardiology office note from 12/22/2021. Reviewed emergency department notes from 12/11/2021 and 12/10/2021. Reviewed emergency department note from 03/16/2022, documented SVT on that visit. Reviewed Holter monitor results from 12/16/2021. Reviewed stress test result from 09/03/2019. Reviewed echocardiogram results from 12/17/2021 and 08/27/2019. - Chuck Inquiry Pt receiving controlled substance: No Vital Signs: 01/09/22 11:01 01/09/22 11:16 01/09/22 11:29 Temperature 98.7 F Temperature Source Oral Pulse Rate 75 71 Pulse Rate [Right] 96 H Respiratory Rate 22 Blood Pressure 135/87 135/83 Blood Pressure [Right Arm] 172/99 H Blood Pressure Mean 104 107 Blood Pressure Mean [Right Arm] 123 Blood Pressure Source [Right Arm] Automatic Cuff Blood Pressure Position [Right Arm] Sitting 02 Sat by Pulse Oximetry 98 99 98 Oxygen Delivery Method Room Air Room Air 01/09/22 11:59 01/09/22 12:29 01/09/22 12:55 Temperature 98.7 F Temperature Source Oral Pulse Rate 76 72 72 Pulse Rate [Right] Respiratory Rate 16 Blood Pressure 136/88 142/94 H 142/94 H Blood Pressure [Right Arm] Blood Pressure Mean 105 115 Blood Pressure Mean [Right Arm] Blood Pressure Source [Right Arm] Blood Pressure Position [Right Arm] 02 Sat by Pulse Oximetry 98 99 Oxygen Delivery Method Room Air Room Air - Lab Data Lab Results 01/09/22 11:05: WBC 4.5, RBC 4.19 L, Hgb 13.2, Hct 38.0, MCV 90.8, MCH 31.5 H, MCHC 34.7, RDW 12.9, Plt Count 297, MPV 7.9, Neut % (Auto) 63.1, Lymph % (Auto) 29.5, Rogers % (Auto) 4.4, Eos % (Auto) 0.5, Baso % (Auto) 2.5 H, Neut # (Auto) 2.9, Lymph # (Auto) 1.3, [place] # (Auto) 0.2, Eos # (Auto) 0.0, Baso # (Auto) 0.1 01/09/22 11:05: Sodium 137, Potassium 3.8, Chloride 103, Carbon Dioxide 27, Anion Gap 10.8, BUN 9, Creatinine 0.60, Estimated Creat Clear 155, Estimated GFR 127, Est GFR ( Amer) 154, Glucose 98, Calcium 9.3, Troponin I < 0.01 01/09/22 11:05: Urine Color Straw, Urine Appearance Clear, Urine pH 6.0, Ur Specific Enigma <= 1.005, Urine Protein Negative, Urine Glucose (UA) Negative, Urine Ketones Negative, Urine Blood Trace-i, Urine Nitrate Negative, Urine Bilirubin Negative, Urine Urobilinogen 0.2, Ur Leukocyte Esterase 1+ A, Urine RBC None, Urine WBC 10-20, Ur Squamous Epith Cells 5-10, Urine Bacteria 2+ 01/09/22 12:00: Urine HCG, Qual Negative Result diagrams: 01/09/22 11:05 01/09/22 11:05 Orders (Tests/Meds): ED MEDICATIONS Discontinued Medications Generic Name Dose Route Start Last Admin Trade Name Larryq PRN Reason Stop Dose Admin Bisoprolol Fumarate 5 mg 01/10/22 12:38 Bisoprolol 5mg Tablet PO 01/10/22 12:39 ONCE ONE Bisoprolol Fumarate 5 mg 01/11/22 13:00 Bisoprolol 5mg Tablet PO 01/11/22 13:01 ONCE ONE Bisoprolol Fumarate 5 mg 01/09/22 13:01 01/09/22 13:01 Bisoprolol
[2022-01-09 11:03] VITALS: BMI 22.7
--- NOTE | 2022-01-09 11:03 | XR_ITS ---
PROCEDURE INFORMATION: Exam: XR Chest Exam date and time: 01/09/2022 11:22 AM Age: 21 years old Clinical indication: Other: Dizziness TECHNIQUE: Imaging protocol: Radiologic exam of the chest. Views: 2 views. COMPARISON: CR XR CHEST 2V 01/05/2022 10:13 PM FINDINGS: Lungs: Unremarkable. No consolidation. Pleural spaces: Unremarkable. No pleural effusion. No pneumothorax. Heart/Mediastinum: Unremarkable. No cardiomegaly. Bones/joints: Unremarkable. IMPRESSION: No acute findings.
--- NOTE | 2022-01-09 11:06 | PC.NURSE ---
Family at BS
--- NOTE | 2022-01-09 11:09 | PC.NURSE ---
Pt ambulated to restroom to provide urine sample. Denies any symptoms at this time. Mother at bedside
--- NOTE | 2022-01-09 11:13 | PC.NURSE ---
SEDA IBRAHIM at speaking with the patient
[2022-01-09 11:16] VITALS: BP 135/87; PULSE 75; O2SAT 99
[2022-01-09 11:29] VITALS: BP 135/83; PULSE 71; O2SAT 98
[2022-01-09 11:29] LABS: Chloride 103 mmol/L (98-107)
[2022-01-09 11:30] LABS: Basophils # 0.1 K/mm3 (0-0.2); Basophils % 2.5 % (0.1-2.0); Eosinophils % 0.5 % (0.1-12.0); Hemoglobin 13.2 g/dL (12.2-16.2); Lymphocytes # 1.3 K/mm3 (0.7-4.5); Lymphocytes % 29.5 % (10-50); Mean Corpuscular HGB Conc 34.7 g/dL (31.8-35.4); Mean Corpuscular Hemoglobin 31.5 pg (27.0-31.2); Mean Corpuscular Volume 90.8 fl (81-99); Mean Platelet Volume 7.9 fl (7.4-10.4); Monocytes # 0.2 K/mm3 (0.1-1.0); Monocytes % 4.4 % (1.7-9.3); Neutrophils # 2.9 K/mm3 (1.8-7.8); Neutrophils % 63.1 % (37.0-80.0); Platelet Count 297 K/mm3 (142-424); Potassium 3.8 mmoL/L (3.5-5.1); Red Blood Count 4.19 M/mm3 (4.20-5.40); Red Cell Distribution Width 12.9 % (11.5-17.5); Sodium 137 mmol/L (136-145); White Blood Count 4.5 K/mm3 (4.5-13.0)
[2022-01-09 11:33] LABS: Anion Gap 10.8 mEq/L (5-15); Blood Urea Nitrogen 9 mg/dl (7-17); Calcium 9.3 mg/dl (8.4-10.2); Carbon Dioxide 27 mmol/L (22.0-30.0); Creatinine Clearance Estimated 155 mL/min (50-200); Estimated Glomerular Filt Rate 127 ml/min (>60); GFR (African American) 154 ML/MIN (>60); Glucose 98 mg/dl (74-100)
--- NOTE | 2022-01-09 11:36 | PC.NURSE ---
ER MD at speaking with patient and family regarding update on results and POC
[2022-01-09 11:59] VITALS: BP 136/88; PULSE 76; O2SAT 98
[2022-01-09 11:59] LABS: Troponin I < 0.01 ng/ml (0.00-0.034)
[2022-01-09 12:27] LABS: Microscopic, Urine URINE MICROSCOPIC (MICROSCOPIC)
--- NOTE | 2022-01-09 12:27 | PC.NURSE ---
rounded on pt at this time. Updated on POC. Pt and father agreeable. No other needs at this time
--- NOTE | 2022-01-09 12:28 | PC.NURSE ---
Notified lab of Urine HCG add on
--- NOTE | 2022-01-09 12:28 | PC.NURSE ---
Dr. Chan paged
[2022-01-09 12:29] VITALS: BP 142/94; PULSE 72; O2SAT 99
[2022-01-09 12:29] LABS: Appearance,Urine CLEAR (Clear); Bilirubin,Urine Negative (Negative); Blood, Urine TRACE-I (Negative); Color,Urine STRAW (Yellow); Glucose,Urine (UA) Negative (Negative); Ketones,Urine Negative (Negative); Leukocyte Esterase,Urine 1+ (Negative); Nitrate,Urine Negative (Negative); Protein,Urine Negative (Negative); Specific Gravity, Urine <= 1.005 (1.005-1.030); Urobilinogen,Urine 0.2 EU/dl (0.2)
[2022-01-09 12:31] LABS: Urine Pregnancy, HCG Qual. Negative (Negative)
--- NOTE | 2022-01-09 12:31 | PC.NURSE ---
speaking with Dr. Chan
[2022-01-09 12:45] LABS: Bacteria,Urine 2+ /lpf
[2022-01-09 12:55] VITALS: BP 142/94; PULSE 72; RESP 16; TEMP 37.1; O2SAT 99
== END 2022-01-09 13:11 | disposition home or self-care (01) ==
PROVIDERS: Emergency Provider Emergency Medicine; PCP Physician Assistant
DX: I49.8 Other specified cardiac arrhythmias (principal); Z79.899 Other long term (current) drug therapy; Z88.1 Allergy status to other antibiotic agents; Z72.0 Tobacco use
CPT/HCPCS: 71046; 80048; 81001; 81025; 84484; 85025; 87086; 93005; 99284

== ENCOUNTER 2022-11-06 21:03 | Emergency (ER) | payer BC, OTHER, SELFPAY ==
[2022-11-06 21:11] VITALS: BP 163/94; PULSE 74; RESP 16; TEMP 36.8; O2SAT 98; BMI 26.6
--- NOTE | 2022-11-06 21:32 | HMH.EDUPEXT ---
Discharge Plan Disposition Patient Disposition: Home, Self-Care Condition: Good Prescriptions Prescriptions: No Action 1 mg-20 mcg (24)/75 mg (4) tablet 1 tab PO ONCE Qty: 28 2RF hydroxyzine HCl 25 MG tablet 25 mg PO QID PRN (Reason: Anxiety) escitalopram oxalate 5 MG tablet 5 mg PO DAILY bisoprolol fumarate 5 MG tablet 5 mg PO DAILY Qty: 30 0RF Referrals Follow up/Referrals: Destiny Seymour PA [Primary Care Provider] - 3 days Clinical Impressions Clinical Impression: Ganglion cyst of finger of right hand Instructions Patient Instructions: DI Ganglion Cyst Discharge ED Provider: Enoc Potter Upper Extremity HPI General Chief Complaint: Extremity Injury, Upper Stated Complaint: Cyst on R hand Time Seen by Provider: 11/06/22 21:30 Mode of Arrival: Ambulatory Source of Information: Patient Limitations: No Limitations Description of Symptoms (Recalled from ER Triage Doc. by RN): Pt c/o cyst on right hand for prior 8 months. States that tonight while working she bumped her hand on a table and the cyst began to get larger and shoot pain down her hand. History of Present Illness HPI narrative: right hand pain and swelling MD complaint: injury to: right and hand Onset (ago): hour(s) (2) Other Extremity Injury: Right: hand Other injuries: none Related Data Home Medications Medication Instructions Recorded Confirmed escitalopram oxalate 5 mg tablet 5 mg PO DAILY Anxiety 01/09/22 01/11/22 hydroxyzine HCl 25 mg tablet 25 mg PO QID PRN Anxiety 01/09/22 01/11/22 Previous Rx's Medication Instructions Recorded bisoprolol fumarate 5 mg tablet 5 mg PO DAILY #30 tabs 01/09/22 norethindrone 1 mg-ethinyl 1 tab PO ONCE #28 tabs 05/06/22 estradiol 20 mcg (24)-iron 75 mg (4) tablet () Allergies Allergy/AdvReac Type Severity Reaction Status Date / Time erythromycin base Allergy Intermediate soa, hives Verified 01/11/22 11:20 [ERYTHROMYCIN BASE] [facility] Disclaimer: The information contained in this section may have been updated after the patient was seen, as this information can be updated by other users. 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 Smoking Status: Current every day smoker tobacco type: e-cigarettes second hand exposure: No alcohol intake: never substance use type: denies use current occupational status: employed Travel in the last 8 weeks: [place] the [place] household members: family housing: house number of children: 0 current occupation: [employer] current occupational exposures/hazards: No caffeine: Yes ROS Obtained: Yes Systems reviewed as appropriate & no additional complaints except as documented Musculoskeletal Musculoskeletal: Reports joint swelling Physical Exam General General appearance: alert and in no apparent distress Respiratory Respiratory exam: Absent respiratory distress Cardiovascular Cardiovascular exam: Present other Extremities Exam Extremities exam: Present normal inspection and other (hand swelling and pain around area of prior injury) Neurological Exam Neurological exam: Present alert and oriented X3 Skin Skin exam: Present warm and dry Medical Decision Making Chuck Inquiry Pt receiving controlled substance: No Vital Signs: 11/06/22 21:11 11/06/22 21:41 Temperature 98.3 F 98 F Temperature Source Oral Oral Pulse Rate 74 Pulse Rate [Apical] 74 Respiratory Rate 16 19 Blood Pressure 160/90 H Blood Pressure [Right Arm] 163/94 H Blood Pressure Mean [Right Arm] 117 Blood Pressure Source Automatic Cuff Blood Pressure Source [Right Arm] Automatic Cuff Blood Pressure Position Sitting Blood Pressure Position [Right Arm] Sitting 02 Sat by Pulse Oximetry 98 Oxygen Delivery Method Room Air Room Air Orders (Tests/Meds): ED MEDICATIONS Discontinued Medications Generic Name Dose Route Start Last Admin Trade Name Freq PRN Reason Stop Dose Admin Ketorolac Tromethamine 6
[2022-11-06 21:41] VITALS: BP 160/90; PULSE 74; RESP 19; TEMP 36.6; O2SAT 98
== END 2022-11-06 21:48 | disposition home or self-care (01) ==
PROVIDERS: Emergency Provider Emergency Medicine; PCP Physician Assistant
DX: M67.441 Ganglion, right hand (principal); F17.290 Nicotine dependence, other tobacco product, uncomplicated
CPT/HCPCS: 96372; 99283; 99284

== ENCOUNTER 2022-11-17 09:20 | Emergency (ER) | payer BC, OTHER, SELFPAY ==
[2022-11-17 09:33] VITALS: BP 136/88; PULSE 78; RESP 18; TEMP 37.1; O2SAT 98; BMI 26.9
--- NOTE | 2022-11-17 09:43 | EXP.UTC ---
Discharge Plan Disposition Patient Disposition: Home, Self-Care Condition: Good Prescriptions Prescriptions: New cefdinir 300 mg capsule 300 mg PO BID Qty: 20 0RF ondansetron 4 mg Tablet,Disintegrating 4 mg PO Q8H PRN (Reason: Nausea) Qty: 20 0RF No Action Junel Fe 24 1 mg-20 mcg (24)/75 mg (4) tablet 1 tab PO ONCE Qty: 28 2RF hydroxyzine HCl 25 MG tablet 25 mg PO QID PRN (Reason: Anxiety) escitalopram oxalate 5 MG tablet 5 mg PO DAILY bisoprolol fumarate 5 MG tablet 5 mg PO DAILY Qty: 30 0RF Referrals Follow up/Referrals: Destiny Seymour PA [Primary Care Provider] - See instructions Activity Restrictions/Add. Instructions Additional Instructions/Restrictions: *Monitor Temp, Over the counter Motrin or Tylenol as directed/as needed Tylenol every 4 hours and Motrin every 6 hours (as long as your family doctor has told you that you can take it) for fever or pain. and straight to ER if unable to lower temp less than 101.0 after medication given *Warm salt water gargles may help to soothe the throat *Throat Lozenges? *Warm fluids like tea with honey may help to soothe the throat? *Sleep elevated *Humidifier/Vaporizer *If you did not take Penicillin shot or was unable to, start taking antibiotic immediately and make sure that you take it for the FULL length of time although you should start to feel better in 24-48 hours *change toothbrush and toothpaste 24-48 hours after starting to take antibiotics so you do not reinfect yourself Monitor Temp. Tylenol and/or Ibuprofen as needed. ER if fever is no less than 101 despite alternating Tylenol and Ibuprofen * Encourage fluids, water, Gatorade, powerade, pedialyte if infant/toddler/or child *Cold fluids, popsicles and ice cream may feel good on his throat Follow up IMMEDIATELY for new or worsening symptoms or no Noticeable improvement over the next 48-72 hours. 911 for difficulty breathing or swallowing Clinical Impressions Clinical Impression: Strep throat Stand Alone Forms Stand Alone Forms: Work/School Release Instructions Patient Instructions: Strep Throat, DI for Strep Throat Discharge ED Provider: [place] Perey[place] [facility] [place] General Stated complaint: Sore throat, bodyaches Mode of Arrival: Ambulatory Source of Information: Patient Limitations: No Limitations Time Seen by Provider: 11/17/22 09:44 Description of Symptoms (Recalled from Triage Doc. by RN): pt c/o a sore throat, myalgia, fever, SCANLON and ear pain x2d. pt states she was tested for covid and it was negative. HEENT Symptoms (Recalled from RN notes): Yes Resp Symptoms (Recalled from RN notes): No Skin Symptoms (Recalled from RN notes): No MS Symptoms (Recalled from RN notes): No Functional Status (Recalled from RN notes): wnl History of Present Illness Provider Complaint: Patient states that for the last couple of days she has been having sore throat, headache, bilateral ear pain, n/v at times and fatigue States that they tested her for COVID at work yesterday and was negative thinks she may have strep throat Related Data Home Medications Medication Instructions Recorded Confirmed escitalopram oxalate 5 mg tablet 5 mg PO DAILY Anxiety 01/09/22 01/11/22 hydroxyzine HCl 25 mg tablet 25 mg PO QID PRN Anxiety 01/09/22 01/11/22 Previous Rx's Medication Instructions Recorded bisoprolol fumarate 5 mg tablet 5 mg PO DAILY #30 tabs 01/09/22 norethindrone 1 mg-ethinyl 1 tab PO ONCE #28 tabs 05/06/22 estradiol 20 mcg (24)-iron 75 mg (4) tablet () cefdinir 300 mg capsule 300 mg PO BID #20 caps 11/17/22 ondansetron 4 mg disintegrating 4 mg PO Q8H PRN Nausea #20 tabs 11/17/22 tablet Allergies Allergy/AdvReac Type Severity Reaction Status Date / Time erythromycin base Allergy Intermediate soa, hives Verified 11/17/22 09:35 [ERYTHROMYCIN BASE] Worker's Comp Is this a Worker's Comp case?: No [facility] Disclaimer:
[2022-11-17 09:57] VITALS: BP 136/88; PULSE 78; RESP 18; TEMP 37.1
[2022-11-17 09:57] LABS: UTC Strep Screen (Rapid) Positive (Negative)
== END 2022-11-17 09:58 | disposition home or self-care (01) ==
PROVIDERS: Emergency Provider Nurse Practitioner; PCP Physician Assistant
DX: J02.0 Streptococcal pharyngitis (principal); R51.9 Headache, unspecified; H92.03 Otalgia, bilateral; R53.83 Other fatigue; F17.290 Nicotine dependence, other tobacco product, uncomplicated
CPT/HCPCS: 87880; 99204; 99212; G0463

== ENCOUNTER 2023-01-04 22:39 | Emergency (ER) | payer BC, OTHER, SELFPAY ==
[2023-01-04 22:42] VITALS: BP 172/111; PULSE 79; RESP 18; TEMP 36.8; O2SAT 100; BMI 25.8
--- NOTE | 2023-01-04 22:44 | ECG_ITS ---
APPROVED REPORT Exam: Resting ECG HR:76 bpm ECG Measurements Heart Rate 76 AXES CA 152 P 28 QRSd 109 QRS 74 QT 399 T 51 QTc 430 Conclusion SINUS RHYTHM WITH OCCASIONAL SUPRAVENTRICULAR PREMATURE COMPLEXES BORDERLINE ECG UNCONFIRMED REPORT Electronically signed by : Jarocho Goel MD 01/05/2023 21:14:50
--- NOTE | 2023-01-04 22:51 | XR_ITS ---
PROCEDURE INFORMATION: Exam: XR Chest Exam date and time: 01/04/2023 10:47 PM Age: 22 years old Clinical indication: Pain; Chest pressure; Prior surgery; Surgery date: <1 month; Surgery type: States ablation for svt 2 weeks ago; Additional info: Chest pain TECHNIQUE: Imaging protocol: Radiologic exam of the chest. Views: 2 views. COMPARISON: CR XR CHEST 2V 01/09/2022 11:22 AM FINDINGS: Lungs: Stable small left lower lobe pulmonary nodule. No consolidation. Pleural spaces: Unremarkable. No pleural effusion. No pneumothorax. Heart/Mediastinum: Unremarkable. No cardiomegaly. Bones/joints: Unremarkable. IMPRESSION: No acute findings pulmonary findings.
[2023-01-04 22:54] LABS: Basophils % 0.6 % (0.1-2.0); Eosinophils # 0.1 K/mm3 (0.0-0.4); Eosinophils % 1.4 % (0.1-12.0); Hematocrit 42.9 % (37.0-47.0); Hemoglobin 14.2 g/dL (12.2-16.2); Lymphocytes # 1.9 K/mm3 (0.7-4.5); Lymphocytes % 28.9 % (10-50); Mean Corpuscular HGB Conc 33.1 g/dL (31.8-35.4); Mean Corpuscular Hemoglobin 29.4 pg (27.0-31.2); Mean Corpuscular Volume 88.9 fl (81-99); Mean Platelet Volume 7.7 fl (7.4-10.4); Monocytes # 0.3 K/mm3 (0.1-1.0); Monocytes % 4.6 % (1.7-9.3); Neutrophils # 4.3 K/mm3 (1.8-7.8); Neutrophils % 64.6 % (37.0-80.0); Platelet Count 305 K/mm3 (142-424); Red Blood Count 4.82 M/mm3 (4.20-5.40); Red Cell Distribution Width 12.9 % (11.5-17.5); White Blood Count 6.6 K/mm3 (4.8-10.8)
[2023-01-04 23:00] VITALS: BP 170/95; PULSE 70; RESP 16; O2SAT 99
[2023-01-04 23:08] LABS: Anion Gap 13.9 mEq/L (5-15); Blood Urea Nitrogen 5 mg/dl (7-17); Carbon Dioxide 29 mmol/L (22.0-30.0); Chloride 103 mmol/L (98-107); Creatinine Clearance Estimated 175 mL/min (50-200); Potassium 3.9 mmoL/L (3.5-5.1); Sodium 142 mmol/L (136-145)
[2023-01-04 23:09] LABS: Calcium 9.2 mg/dl (8.4-10.2); Estimated Glomerular Filt Rate 126 ml/min (>60); GFR (African American) 153 ML/MIN (>60); Glucose 95 mg/dl (74-100)
[2023-01-04 23:14] LABS: C-Reactive Protein 0.6 mg/L (0-4)
--- NOTE | 2023-01-04 23:19 | HMH.EDCP ---
Discharge Plan Disposition Patient Disposition: Home, Self-Care Chief Complaint: Chest Pain Prescriptions Prescriptions: No Action No Known Home Medications Referrals Follow up/Referrals: Provider,Referral, [Primary Care Provider] - See instructions Clinical Impressions Clinical Impression: Atypical chest pain Instructions Patient Instructions: DI for Atypical Chest Pain Discharge ED Provider: Eduardo (ED),Jam Davison Chest Pain HPI General Chief Complaint: Chest Pain Stated Complaint: Chest pain Time Seen by Provider: 01/04/23 22:50 Mode of Arrival: Ambulatory Source of Information: Patient, Parent(s) and Medical Record Limitations: No Limitations Description of Symptoms (Recalled from ER Triage Doc. by RN): pt has had constant sternal chest pain ongoing about an hour. pt states the pain feels like an elephant sitting on my chest. pt also c/o numbness in her lower extremities, SOA, and lightheadedness. pt states 2wks ago she had an ablation for SVT by Dr. Chow at [facility]. History of Present Illness HPI narrative: recent ablation for svt and has been having chest pain - worse tonight complaint: chest pain indicative of cardiac Onset (ago): day(s) Duration: intermittent Activity at onset: during rest Pain location: left chest Severity: moderate Quality: heaviness Risk Factors for CAD: Family Hx of CAD Treatments prior to or on arrival for Cardiac Chest Pain: none MONSERRAT Score for Non-Stemi Age of Patient: <30 years old Heart Rate: 70-89 bpm Systolic Blood Pressure: 140-159 mmHg Serum Creatinine: 0.40-0.79 mg/dl CHF [place] Class: I-No CHF Other Risk Factors: None Non-Stemi Risk Score: 37 Risk Stratification: 1-108 = Low Risk Related Data On Oral Contraceptives: No Home Medications Medication Instructions Recorded Confirmed No Known Home Medications 01/04/23 01/04/23 Allergies Allergy/AdvReac Type Severity Reaction Status Date / Time erythromycin base Allergy Intermediate soa, hives Verified 01/04/23 23:20 [ERYTHROMYCIN BASE] [facility] Disclaimer: The information contained in this section may have been updated after the patient was seen, as this information can be updated by other users. 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 Smoking Status: Never smoker second hand exposure: No alcohol intake: never substance use type: denies use current occupational status: employed Travel in the last 8 weeks: [place] household members: family housing: house number of children: 0 current occupation: [employer] current occupational exposures/hazards: No caffeine: Yes ROS Obtained: Yes All systems reviewed & no additional complaints except as documented Physical Exam General General appearance: alert Head Head exam: normocephalic Eye Eye exam: Present PERRL and EOMI ENT ENT exam: Present mucous membranes moist Neck Neck exam: Present trachea midline Respiratory Respiratory exam: Present normal lung sounds bilaterally; Absent respiratory distress Cardiovascular Cardiovascular exam: Present regular rate; Absent systolic murmur, rubs, gallop or clicks Abdominal Exam Abdominal exam: Present soft Extremities Exam Extremities exam: Present full ROM Neurological Exam Neurological exam: Present alert, oriented X3 and CN II-XII intact; Absent motor sensory deficit Psychiatric Psychiatric exam: Present normal affect Skin Skin exam: Absent rash Medical Decision Making Medical Records Medical records reviewed: Yes I reviewed the patient's medical records. Chuck Inquiry Pt receiving controlled substance: No Vital Signs: 01/04/23 22:42 01/04/23 23:00 Temperature 98.2 F Temperature Source Oral Pulse Rate 70 Pulse Rate [Left] 79 Respiratory Rate 18 16 Blood Pressure 170/95 H Blood Pressure [Right Arm] 172/111 H Blood Pressure Mean 134 Blood Pressure Mean [Right Arm] 131 Blood Pressure Source [Right Arm] Automatic Cuff Blood Press
[2023-01-04 23:31] VITALS: BP 164/108; PULSE 66; RESP 20; O2SAT 99
[2023-01-04 23:34] LABS: Procalcitonin < 0.030 ng/mL (0.0-2.0); Troponin I < 0.01 ng/ml (0.00-0.034)
[2023-01-04 23:46] LABS: Erythrocyte Sedimentation Rate 11 mm/hr (0-20)
[2023-01-04 23:49] LABS: HCG Qualitative, Serum Negative (Negative)
[2023-01-05] VITALS: BP 138/85; PULSE 62; RESP 18; O2SAT 96
--- NOTE | 2023-01-05 | CT_ITS ---
PROCEDURE INFORMATION: Exam: CTA Chest With Contrast Exam date and time: 01/05/2023 12:09 AM Age: 22 years old Clinical indication: Shortness of breath; Prior surgery; Surgery date: <1 month; Surgery type: Ablation; Additional info: Pe rule out. TECHNIQUE: Imaging protocol: Computed tomographic angiography of the chest with contrast. Exam focused on the arteries. 3D rendering (Not supervised by radiologist): MIP and/or 3D reconstructed images were created by the technologist. Radiation optimization: All CT scans at this facility use at least one of these dose optimization techniques: automated exposure control; mA and/or kV adjustment per patient size (includes targeted exams where dose is matched to clinical indication); or iterative reconstruction. Contrast material: ISOVUE; Contrast volume: 70 ml; Contrast route: INTRAVENOUS (IV); REPORTING DATA: Count of CT and Cardiac NM exams in prior 12 months: This patient has received 0 known CTs and 0 known cardiac nuclear medicine studies in the 12 months prior to the current study. COMPARISON: CR XR CHEST 2V 01/04/2023 10:47 PM FINDINGS: Pulmonary arteries: Normal. No pulmonary emboli. Aorta: Unremarkable. No aortic aneurysm. No aortic dissection. Lungs: Tiny biapical blebs. 7 mm left lower lobe calcified granuloma. No focal airspace consolidation. Pleural spaces: Unremarkable. No pneumothorax. No pleural effusion. Heart: Unremarkable. No cardiomegaly. No pericardial effusion. Lymph nodes: Small left lower paratracheal and left hilar calcified lymph nodes. No enlarged lymph nodes. Bones/joints: Unremarkable. No acute fracture. Soft tissues: Unremarkable. IMPRESSION: No pulmonary arterial embolism.
--- NOTE | 2023-01-05 00:05 | PC.NURSE ---
patient ambulatory to CT.
[2023-01-05 00:30] VITALS: BP 151/94; PULSE 78; RESP 20; O2SAT 98
[2023-01-05 00:58] VITALS: BP 146/94; PULSE 63; RESP 16; TEMP 36.8
== END 2023-01-05 01:12 | disposition home or self-care (01) ==
PROVIDERS: Emergency Provider Emergency Medicine
DX: R07.89 Other chest pain (principal); R20.0 Anesthesia of skin; R06.02 Shortness of breath; R55 Syncope and collapse
CPT/HCPCS: 71046; 71275; 80048; 84145; 84484; 84703; 85025; 85651; 86140; 93005; 93041; 96360; 99285; Q9967

== ENCOUNTER 2023-02-25 16:49 | Emergency (ER) | payer BC, OTHER, SELFPAY ==
[2023-02-25 16:50] VITALS: BP 135/74; PULSE 67; RESP 18; O2SAT 99; BMI 28.0
--- NOTE | 2023-02-25 17:03 | EXP.UTC ---
Discharge Plan Disposition Patient Disposition: Home, Self-Care Condition: Fair Prescriptions Prescriptions: No Action No Known Home Medications Referrals Follow up/Referrals: Destiny Seymour PA [Primary Care Provider] - See instructions Activity Restrictions/Add. Instructions Additional Instructions/Restrictions: Follow up with Destiny for lab results May need thyroid US May need EGD to r/o EOE Clinical Impressions Clinical Impression: Thyromegaly Discharge ED Provider: Zora Barrett [facility] [place] General Stated complaint: swollen throat Time Seen by Provider: 02/25/23 17:50 History of Present Illness Provider Complaint: Patient presents with swollen throat. States she has gained weight but cannot eat. Feels like her throat is swollen. Worse at night. Doesn't seem to matter what she eats or drinks. History of thryomegaly, thyroid nodules. Last TSH was WNL. Just never feels good. Location: neck Related Data Home Medications Medication Instructions Recorded Confirmed No Known Home Medications 01/04/23 01/04/23 Allergies Allergy/AdvReac Type Severity Reaction Status Date / Time erythromycin base Allergy Intermediate soa, hives Verified 01/04/23 23:20 [ERYTHROMYCIN BASE] [facility] Disclaimer: The information contained in this section may have been updated after the patient was seen, as this information can be updated by other users. 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 Smoking Status: Never smoker second hand exposure: No alcohol intake: never substance use type: denies use current occupational status: employed Travel in the last 8 weeks: [place] the [place] household members: family housing: house number of children: 0 current occupation: [employer] current occupational exposures/hazards: No caffeine: Yes ROS Obtained: Yes All systems reviewed & no additional complaints except as documented ENT Ears, Nose, Mouth, and Throat: Reports system reviewed and no additional complaints, except as documented, Reports as per HPI and Reports throat swelling Allergic/Immunologic Allergic/Immunologic: Reports throat swelling Physical Exam General General appearance: alert and in no apparent distress Head Head exam: atraumatic, normocephalic and normal inspection Eye Eye exam: Present normal appearance, PERRL and EOMI ENT ENT exam: Present normal exam, normal oropharynx, mucous membranes moist, TM's normal bilaterally and normal external ear exam Neck Neck exam: Present normal inspection, full ROM, trachea midline, tenderness and thyromegaly; Absent meningismus or lymphadenopathy Expanded Neck Exam Neck exam focused ED: Present thyroid enlargement Chest Chest inspection: Present normal inspection and symmetric chest wall rise; Absent tenderness Respiratory Respiratory exam: Present normal lung sounds bilaterally; Absent respiratory distress Cardiovascular Cardiovascular exam: Present regular rate and normal rhythm; Absent JVD Abdominal Exam Abdominal exam: Present soft and normal bowel sounds; Absent distention, tenderness or guarding Extremities Exam Extremities exam: Present normal inspection, full ROM and normal capillary refill; Absent calf tenderness Back Exam Back exam: Present normal inspection; Absent tenderness Neurological Exam Neurological exam: Present alert and oriented X3 Psychiatric Psychiatric exam: Present normal affect and normal mood Skin Skin exam: Present warm, dry, intact and normal color Lymphatic Lymphatic Findings: no adenopathy Medical Decision Making Chuck Inquiry Pt receiving controlled substance: No
[2023-02-25 18:38] VITALS: BP 135/74; PULSE 67; RESP 18; TEMP 36.7; O2SAT 99
[2023-02-25 18:41] LABS: Basophils % 0.1 % (0.1-2.0); Eosinophils % 0.6 % (0.1-12.0); Hematocrit 37.2 % (37.0-47.0); Lymphocytes # 1.2 K/mm3 (0.7-4.5); Lymphocytes % 20.6 % (10-50); MANUAL DIFFERENTIAL MANUAL DIFFERENTIAL (MANUAL DIFF); Mean Corpuscular HGB Conc 34.8 g/dL (31.8-35.4); Mean Corpuscular Hemoglobin 30.9 pg (27.0-31.2); Mean Corpuscular Volume 88.8 fl (81-99); Mean Platelet Volume 7.8 fl (7.4-10.4); Monocytes # 0.2 K/mm3 (0.1-1.0); Monocytes % 3.9 % (1.7-9.3); Neutrophils # 4.5 K/mm3 (1.8-7.8); Neutrophils % 74.7 % (37.0-80.0); Platelet Count 317 K/mm3 (142-424); Red Blood Count 4.19 M/mm3 (4.20-5.40); Red Cell Distribution Width 12.9 % (11.5-17.5)
[2023-02-25 18:49] LABS: Alanine Aminotransferase 18 U/L (12-78); Albumin Level 4.4 g/dl (3.5-5.0); Albumin/Globulin Ratio 1.4 (1.1-1.8); Alkaline Phosphatase 56 U/L (38-126); Anion Gap 14.4 mEq/L (5-15); Aspartate Amino Transferase 24 U/L (14-36); Bilirubin,Total 0.4 mg/dl (0.2-1.3); Blood Urea Nitrogen 5 mg/dl (7-17); Calcium 9.4 mg/dl (8.4-10.2); Carbon Dioxide 26 mmol/L (22.0-30.0); Chloride 105 mmol/L (98-107); Creatinine Clearance Estimated 185 mL/min (50-200); Estimated Glomerular Filt Rate 126 ml/min (>60); GFR (African American) 153 ML/MIN (>60); Globulin 3.1 g/dL (1.3-3.2); Glucose 87 mg/dl (74-100); Potassium 3.4 mmoL/L (3.5-5.1); Sodium 142 mmol/L (136-145); Total Protein,Serum 7.5 g/dl (6.3-8.2)
[2023-02-25 18:54] LABS: C-Reactive Protein 0.7 mg/L (0-4)
[2023-02-25 19:09] LABS: Free Thyroxine Index 2.6 ug/dL (5.93-13.13); T4 (Thyroxine) 7.4 ug/dl (5.53-11.0); Triiodothryronine (T3) Uptake 35 % (23.5-40.5)
[2023-02-25 19:23] LABS: Thyroid Stimulating Hormone 1.49 uIU/mL (0.465-4.68)
[2023-02-25 19:40] LABS: Erythrocyte Sedimentation Rate 38 mm/hr (0-20)
[2023-02-25 19:49] LABS: Monoscreen (Rapid) Negative (Negative)
[2023-02-25 20:37] LABS: Lymphocytes % 20 % (10-50); Neutrophils % 80 % (42-76); Platelet Estimate Normal; RBC Morphology Normal; Total Cells Counted 100
[2023-02-28 08:18] LABS: Thyroid Peroxidase Antibodies 10 IU/mL (0-34)
[2023-02-28 16:20] LABS: Thyroid Stimulating Immunoglob <0.10 IU/L (0.00-0.55)
[2023-03-02 11:17] LABS: Antinuclear Antibodies, IFA POSITIVE
== END 2023-02-25 18:39 | disposition home or self-care (01) ==
PROVIDERS: Emergency Provider Physician Assistant; PCP Physician Assistant
DX: E01.0 Iodine-deficiency related diffuse (endemic) goiter (principal)
CPT/HCPCS: 80053; 84436; 84443; 84445; 84479; 85007; 85014; 85018; 85048; 85049; 85651; 86038; 86140; 86318; 86376; 99212; 99214; G0463

== ENCOUNTER → 2023-03-10 15:40 | Outpatient (CLI) | payer BC, OTHER, SELFPAY ==
[2023-03-10 16:07] LABS: Microscopic, Urine URINE MICROSCOPIC (MICROSCOPIC)
[2023-03-10 16:43] LABS: Appearance,Urine CLEAR (Clear); Bilirubin,Urine Negative (Negative); Blood, Urine TRACE-I (Negative); Color,Urine YELLOW (Yellow); Glucose,Urine (UA) Negative (Negative); Ketones,Urine Negative (Negative); Leukocyte Esterase,Urine 2+ (Negative); Nitrate,Urine Negative (Negative); PH,Urine 6.5 (5.0-8.5); Protein,Urine Negative (Negative); Urobilinogen,Urine 0.2 EU/dl (0.2)
[2023-03-10 16:57] LABS: Basophils % 0.5 % (0.1-2.0); Eosinophils # 0.1 K/mm3 (0.0-0.4); Eosinophils % 1.4 % (0.1-12.0); Hematocrit 41.4 % (37.0-47.0); Hemoglobin 13.7 g/dL (12.2-16.2); Lymphocytes # 1.8 K/mm3 (0.7-4.5); Lymphocytes % 36.7 % (10-50); Mean Corpuscular Hemoglobin 30.2 pg (27.0-31.2); Mean Corpuscular Volume 91.5 fl (81-99); Mean Platelet Volume 7.3 fl (7.4-10.4); Monocytes # 0.2 K/mm3 (0.1-1.0); Monocytes % 4.2 % (1.7-9.3); Neutrophils # 2.8 K/mm3 (1.8-7.8); Neutrophils % 57.2 % (37.0-80.0); Platelet Count 291 K/mm3 (142-424); Red Blood Count 4.52 M/mm3 (4.20-5.40); Red Cell Distribution Width 12.8 % (11.5-17.5); White Blood Count 4.9 K/mm3 (4.8-10.8)
[2023-03-10 17:04] LABS: Squamous Epithelial Cell,Urine Occasional #/hpf (0-5); WBC,Urine 20-50 #/hpf (0-3)
[2023-03-10 17:26] LABS: Chloride 105 mmol/L (98-107); Sodium 138 mmol/L (136-145)
[2023-03-10 17:27] LABS: Potassium 3.8 mmoL/L (3.5-5.1)
[2023-03-10 17:29] LABS: Alanine Aminotransferase 16 U/L (12-78); Albumin Level 4.2 g/dl (3.5-5.0); Albumin/Globulin Ratio 1.6 (1.1-1.8); Alkaline Phosphatase 65 U/L (38-126); Anion Gap 12.8 mEq/L (5-15); Aspartate Amino Transferase 22 U/L (14-36); Bilirubin,Total 0.6 mg/dl (0.2-1.3); Blood Urea Nitrogen 5 mg/dl (7-17); Calcium 9.3 mg/dl (8.4-10.2); Carbon Dioxide 24 mmol/L (22.0-30.0); Creatine Kinase 202 U/L (30-135); Estimated Glomerular Filt Rate 126 ml/min (>60); GFR (African American) 153 ML/MIN (>60); Globulin 2.7 g/dL (1.3-3.2); Glucose 87 mg/dl (74-100); Total Protein,Serum 6.9 g/dl (6.3-8.2)
[2023-03-10 17:35] LABS: C-Reactive Protein 0.6 mg/L (0-4)
[2023-03-10 17:47] LABS: 25-OH Vitamin D, Total 32.5 ng/mL (30-100); Erythrocyte Sedimentation Rate 13 mm/hr (0-20)
[2023-03-10 17:48] LABS: Uric Acid 4.3 mg/dl (2.5-6.2)
[2023-03-10 17:49] LABS: Free T4 (Free Thyroxine) 1.13 ng/dl (0.78-2.19)
[2023-03-10 18:01] LABS: Thyroid Stimulating Hormone 3.04 uIU/mL (0.465-4.68)
[2023-03-12 12:50] LABS: Complement C3 120 mg/dL (82-167); HBsAg Screen Negative (Negative); HCV Ab Non Reactive (Non Reactive); Hep A Ab, IGM Negative (Negative); Hep B Core Ab, IgM Negative (Negative); Thyroid Peroxidase Antibodies 13 IU/mL (0-34)
[2023-03-13 13:41] LABS: Anti-Cardio Antibody IgM 12 MPL U/mL (0-12); Anti-Cardiolipin Antibody IgG <9 GPL U/mL (0-14); Anti-Cyclic Citrullinated Pept 4 units (0-19); Anticardiolipin Ab,IgA,Qn <9 APL U/mL (0-11)
[2023-03-13 14:56] LABS: Aldolase 4.4 U/L (3.3-10.3); Angiotensin Converting Enzyme 36 U/L (14-82); Cytoplasmic (C-ANCA) <1:20 titer (Neg:<1:20); Lyme Ab CIA Negative (Negative); Perinuclear (P-ANCA) <1:20 titer (Neg:<1:20)
[2023-03-13 15:31] LABS: Deamidated Gliadin Abs, IgA 6 units (0-19); Deamidated Gliadin Abs, IgG 4 units (0-19); EBV Ab VCA, IgM <36.0 U/mL (0.0-35.9); Tissue Transglutaminase IgA Ab <2 U/mL (0-3); Tissue Transglutaminase IgG Ab 6 U/mL (0-5)
[2023-03-13 17:08] LABS: Anti-Jo-1 <0.2 AI (0.0-0.9); Endomysial IgA Antibody Negative (Negative)
[2023-03-15 00:04] LABS: QuantiFERON-TB Gold Plus Negative (Negative)
[2023-03-15 16:29] LABS: Parvovirus B19, IgG 0.6 index (0.0-0.8); Parvovirus B19, IgM 0.1 index (0.0-0.8)
[2023-03-16 08:19] LABS: Reticulin IgA Antibody Negative titer (Neg:<1:2.5)
[2023-03-16 15:51] LABS: Vitamin B12 997 pg/mL (239-931)
[2023-03-19 03:41] LABS: 14.3.3 eta, RA < 0.20 ng/mL (.)
[2023-03-20 19:24] LABS: HLA-B27 Negative (.)
[2023-03-20 20:34] LABS: RF, IgA by EIA (RDL) < 7 U (<7); RF, IgG by EIA (RDL) < 7 U (<7); RF, IgM by EIA (RDL) 11 U (<7)
[2023-03-21 13:02] LABS: Anti-Cardiolipin Antibody IgG <10 GPL (.); Anti-Cardiolipin Antibody IgM 13 MPL (.); Beta-2 Glycoprotein I Ab, IgA <10 SAU (.); Beta-2 Glycoprotein I Ab, IgG <10 SGU (.); Beta-2 Glycoprotein I Ab, IgM <10 SMU (.); Hexagonal Phase Phospholipid 9 sec (.); INR 1.1 ratio (.); Prothrombin Time 11.3 sec (.); Thrombin Time 16.6 sec (.)
[2023-03-22 08:36] LABS: Anti-Jo-1 <0.2; Anti-Jo-1 Charge YES; Antinuclear Antibodies (ANA) Negative; Antinuclear Antibodies, IFA Negative
== END ==
LOC: LAB 15:41
PROVIDERS: PCP Physician Assistant; Visit Provider Internal Medicine
DX: M25.50 Pain in unspecified joint (principal); R76.8 Other specified abnormal immunological findings in serum; R53.83 Other fatigue; N39.0 Urinary tract infection, site not specified
CPT/HCPCS: 36415; 80053; 80074; 81001; 82085; 82164; 82306; 82550; 82607; 83516; 83520; 84439; 84443; 84550; 85025; 85597; 85598; 85610; 85613; 85651; 85670; 85730; 86038; 86140; 86146; 86147; 86161; 86200; 86225; 86235; 86255; 86256; 86376; 86431; 86480; 86618; 86665; 86747; 86812; 87086

== ENCOUNTER 2023-03-15 21:47 | Emergency (ER) | payer BC, OTHER, SELFPAY ==
[2023-03-15 21:49] VITALS: BP 142/83; PULSE 58; RESP 16; TEMP 37.1; O2SAT 99; BMI 27.7
[2023-03-15 22:11] VITALS: BP 117/60; PULSE 60; RESP 18; TEMP 36.8; O2SAT 97
--- NOTE | 2023-03-15 23:13 | HMH.EDGENADL ---
Discharge Plan Disposition Patient Disposition: Home, Self-Care Condition: Good Prescriptions Prescriptions: No Action No Known Home Medications Referrals Follow up/Referrals: Destiny Seymour PA [Primary Care Provider] - See instructions Activity Restrictions/Add. Instructions Additional Instructions/Restrictions: Please follow-up with your primary care provider. Please return to the emergency department if you develop any new or worsening symptoms or become concerned for your health. Clinical Impressions Clinical Impression: Transient neurological symptoms Stand Alone Forms Stand Alone Forms: Work/School Release Discharge ED Provider: Thais Alcantar General Adult HPI General Chief complaint: PAIN Stated complaint: ribs pain legs numb Time Seen by Provider: 03/15/23 23:00 Mode of Arrival: Ambulatory Source of Information: Patient Limitations: No Limitations Description of Symptoms (Recalled from ER Triage Doc. by RN): pt c/o bilateral rib pain and leg numbness. pt denies any trauma or accident. pt was seen by a rhematologist last week and worked up for lupus. History of Present Illness HPI narrative: 22-year-old female history of multiple chronic symptoms for which she is being worked up by rheumatology, presents with transient neurologic symptoms. She reports that she was driving to work and had sudden onset of bilateral lower extremity numbness from the hip down. She reports that she could still feel her legs but it required more effort to move around and they did not feel normal. She has had no recent infection. She has had no recent trauma. She has no history of IV drug use. She has had this happen once before, at that time symptoms resolved spontaneously as well. Symptoms lasted for maybe 30 minutes this time and have since completely resolved. She reports that she had extensive blood work drawn a few days ago here to evaluate for lupus, Shantelle's, and a variety of other autoimmune conditions. Related Data Home Medications Medication Instructions Recorded Confirmed No Known Home Medications 01/04/23 01/04/23 Allergies Allergy/AdvReac Type Severity Reaction Status Date / Time erythromycin base Allergy Intermediate soa, hives Verified 01/04/23 23:20 [ERYTHROMYCIN BASE] [facility] Disclaimer: The information contained in this section may have been updated after the patient was seen, as this information can be updated by other users. 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 Smoking Status: Current every day smoker tobacco type: e-cigarettes second hand exposure: No alcohol intake: never substance use type: denies use current occupational status: employed Travel in the last 8 weeks: [place] household members: family housing: house number of children: 0 current occupation: [employer] current occupational exposures/hazards: No caffeine: Yes ROS Obtained: Yes All systems reviewed & no additional complaints except as documented Physical Exam General General appearance: alert and in no apparent distress Head Head exam: atraumatic and normocephalic Eye Eye exam: Present normal appearance, PERRL and EOMI ENT ENT exam: Present normal oropharynx and normal external ear exam Neck Neck exam: Present normal inspection and full ROM Chest Chest inspection: Present normal inspection and symmetric chest wall rise; Absent tenderness Respiratory Respiratory exam: Present normal lung sounds bilaterally; Absent respiratory distress Cardiovascular Cardiovascular exam: Present regular rate and normal rhythm Abdominal Exam Abdominal exam: Present soft; Absent distention, tenderness or guarding Extremities Exam Extremities exam: Present normal inspection; Absent edema or joint swelling Back Exam Back exam: Present normal inspection; Absent tenderness Neurological Exam Neurological exam: Present alert, oriented X3, CN II-XII intact, normal gait and reflexes normal; Absen
[2023-03-15 23:18] VITALS: BP 118/63; PULSE 56; RESP 14; TEMP 36.7
== END 2023-03-15 23:20 | disposition home or self-care (01) ==
PROVIDERS: Emergency Provider Emergency Medicine; PCP Physician Assistant
DX: R07.81 Pleurodynia (principal); R20.0 Anesthesia of skin; F17.290 Nicotine dependence, other tobacco product, uncomplicated
CPT/HCPCS: 99282

== ENCOUNTER → 2023-03-17 15:24 | Outpatient (CLI) | payer BC, OTHER, SELFPAY ==
--- NOTE | 2023-03-17 15:32 | US_ITS ---
FINAL REPORT TECHNIQUE: Limited sonographic images of the thyroid were obtained. CLINICAL HISTORY: NODULES COMPARISON: 12/17/2021 FINDINGS: US THYROID/HEAD OR NECK SOFT TISSUE The right lobe of the thyroid is somewhat enlarged measuring 5.1 x 1.3 x 1.7 cm. There are multiple small cysts and nodules bilaterally, largest on the right measures 6 x 3 mm which appears cystic with small calcifications consistent with TI-RADS category 4. Multiple other less than 5 mm cysts and nodules are seen, similar to prior. The left lobe of the thyroid measures 4.0 x 1.1 x 1.3 cm. There is a solid, isoechoic nodule measuring 6 x 6 x 3 mm consistent with TI-RADS category 3. The isthmus measures 2 mm. IMPRESSION: Multiple bilateral thyroid cysts and nodules. No follow-up is required. Reviewed, Interpreted and Dictated by Rk Weston III, MD Transcribed by Lyn Morales Authenticated and [facility]
== END ==
LOC: RAD 15:25
PROVIDERS: PCP Physician Assistant; Visit Provider Physician Assistant
DX: E01.0 Iodine-deficiency related diffuse (endemic) goiter (principal)
CPT/HCPCS: 76536

== ENCOUNTER → 2023-04-26 12:53 | Outpatient (CLI) | payer OTHER, SELFPAY ==
[2023-04-26 13:22] LABS: Blood Urea Nitrogen 8 mg/dl (7-17); Estimated Glomerular Filt Rate 126 ml/min (>60); GFR (African American) 153 ML/MIN (>60)
--- NOTE | 2023-04-26 13:40 | MR_ITS ---
FINAL REPORT CLINICAL HISTORY: DIZZINESS. migraine headache. blurred vision FINDINGS: Multiple projection images of the brain arterial vasculature were obtained without contrast. The raw data images were also reviewed. The distal internal carotid, distal vertebral and basilar arteries have an unremarkable appearance without evidence of significant stenosis or occlusion. The proximal anterior, middle and posterior cerebral arteries have an unremarkable appearance. There is no evidence of significant stenosis or major branch occlusion. No aneurysm or vascular malformation is identified. IMPRESSION: Unremarkable MR angiogram of the head. Reviewed, Interpreted and Dictated by Rk Weston III, MD Transcribed by Lyn Morales Authenticated and [facility]
--- NOTE | 2023-04-26 13:41 | MR_ITS ---
FINAL REPORT CLINICAL HISTORY: INTRACTABLE MIGRAINE. dizziness. blurred vision FINDINGS: Multiplanar MR imaging of the brain was performed without and with contrast. There is no evidence of intracranial hemorrhage or mass. 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 No abnormal extra-axial fluid collection is seen. The ventricular size is within normal limits. There is no evidence of shift of the midline structures. The posterior fossa and brainstem have an unremarkable appearance. No area of abnormal restricted diffusion is identified. No abnormal contrast enhancement is seen. Normal major vessel vascular flow voids are noted. IMPRESSION: Chiari 1 malformation. No acute intracranial abnormality identified. Reviewed, Interpreted and Dictated by Rk Weston III, MD Transcribed by Lyn Morales Authenticated and [facility]
== END ==
PROVIDERS: PCP Physician Assistant; Visit Provider Physician Assistant
DX: G43.119 Migraine with aura, intractable, without status migrainosus (principal)
CPT/HCPCS: 36415; 70544; 70553; 82565; 84520; A9576

== ENCOUNTER 2023-04-29 16:27 | Emergency (ER) | payer OTHER, SELFPAY ==
[2023-04-29 16:30] VITALS: BP 141/82; PULSE 66; RESP 18; TEMP 36.9; O2SAT 98; BMI 28.8
--- NOTE | 2023-04-29 17:03 | EXP.UTC ---
Discharge Plan Disposition Patient Disposition: Still a Patient Condition: Good Prescriptions Prescriptions: No Action bisoprolol fumarate 5 mg tablet 5 mg PO BID hydroxychloroquine 200 mg tablet 200 mg PO DAILY Referrals Follow up/Referrals: Provider,Referral, [Primary Care Provider] - See instructions [facility] [facility] [place] General Stated complaint: headache Mode of Arrival: Ambulatory Source of Information: Patient Limitations: No Limitations Time Seen by Provider: 04/29/23 17:03 Description of Symptoms (Recalled from Triage Doc. by RN): Pt had a MRI on mon. She stated that for the last 3 days she has had a migraine. She stated that she has pain in her mid back between should blades that travels up her neck to her head. She stated that she has blurred vision at time , denies right now. Her hands and feet are feeling itchy at time, but denies right at this moment. An she has had dizziness, but denies right now. HEENT Symptoms (Recalled from RN notes): Yes Resp Symptoms (Recalled from RN notes): No Skin Symptoms (Recalled from RN notes): No MS Symptoms (Recalled from RN notes): No Functional Status (Recalled from RN notes): n/a History of Present Illness Provider Complaint: 22 yr old female presents for numerous c/o for the last 3 days she has had a migraine. She stated that she has pain in her mid back between should blades that travels up her neck to her head, feels she cant get enough air. She stated that she has blurred vision, pt states she was pulling out at work and almost hit someone because she couldn't see them. Her hands and feet are feeling itchy , then go numb and tingling. pt states this was gone but returned while she was sitting in chair. An she has had dizziness, with vison changes. pt states she had a mri on and can not get back into dr until . Related Data Home Medications Medication Instructions Recorded Confirmed bisoprolol fumarate 5 mg tablet 5 mg PO BID 04/29/23 04/29/23 hydroxychloroquine 200 mg tablet 200 mg PO DAILY 04/29/23 04/29/23 Allergies Allergy/AdvReac Type Severity Reaction Status Date / Time erythromycin base Allergy Intermediate soa, hives Verified 04/29/23 16:49 [ERYTHROMYCIN BASE] Worker's Comp Is this a Worker's Comp case?: No [facility] Disclaimer: The information contained in this section may have been updated after the patient was seen, as this information can be updated by other users. 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) Smoking Status: Current every day smoker tobacco type: e-cigarettes second hand exposure: No alcohol intake: never substance use type: denies use current occupational status: employed Travel in the last 8 weeks: [place] the [place] household members: family housing: house number of children: 0 current occupation: [employer] current occupational exposures/hazards: No caffeine: Yes ROS Obtained: Yes All systems reviewed & no additional complaints except as documented Constitutional Constitutional: Reports system reviewed and no additional complaints, except as documented, Reports as per HPI and Reports headache(s) Eyes Eyes: Reports system reviewed and no additional complaints, except as documented, Reports as per HPI, Reports blurry vision, Reports change in vision and Reports loss of vision ENT Ears, Nose, Mouth, and Throat: Reports system reviewed and no additional complaints, except as documented, Reports dizziness and Reports headache(s) Cardiovascular Cardiovascular: Reports system reviewed and no additional complaints, except as documented Respiratory Respiratory: Reports system reviewed and no additional complaints, except as documented Gastrointestinal Gastrointestingal: Reports system reviewed and no additional complaints, except as documented Musculoskeletal Musculoskeletal: Reports system reviewed and no
[2023-04-29 17:24] LABS: Microscopic, Urine URINE MICROSCOPIC (MICROSCOPIC)
[2023-04-29 17:31] LABS: Appearance,Urine CLEAR (Clear); Bilirubin,Urine Negative (Negative); Blood, Urine Negative (Negative); Color,Urine YELLOW (Yellow); Glucose,Urine (UA) Negative (Negative); Ketones,Urine Negative (Negative); Leukocyte Esterase,Urine 1+ (Negative); Nitrate,Urine Negative (Negative); Protein,Urine Negative (Negative); Specific Gravity, Urine 1.015 (1.005-1.030); Urobilinogen,Urine 0.2 EU/dl (0.2)
[2023-04-29 17:33] VITALS: BP 148/80; PULSE 54; RESP 18; O2SAT 98; BMI 28.8
--- NOTE | 2023-04-29 17:36 | HMH.EDGENADL ---
Discharge Plan Disposition Patient Disposition: Still a Patient Condition: Good Prescriptions Prescriptions: No Action bisoprolol fumarate 5 mg tablet 5 mg PO BID hydroxychloroquine 200 mg tablet 200 mg PO DAILY Referrals Follow up/Referrals: Provider,MD Veronika [Primary Care Provider] - See instructions Activity Restrictions/Add. Instructions Additional Instructions/Restrictions: Please follow-up with [facility] neurosurgery for further discussion regarding your recent diagnosis of Chiari I malformation with your symptoms. Return with any worsening complaints. Clinical Impressions Clinical Impression: Headache, Chiari malformation Discharge ED Provider: Michael Bowers General Adult HPI General Chief complaint: Headache Stated complaint: headache Time Seen by Provider: 04/29/23 17:03 Mode of Arrival: Ambulatory Source of Information: Patient Limitations: No Limitations Description of Symptoms (Recalled from ER Triage Doc. by RN): Pt had a MRI on mon. She stated that for the last 3 days she has had a migraine. She stated that she has pain in her mid back between should blades that travels up her neck to her head. She stated that she has blurred vision at time , denies right now. Her hands and feet are feeling itchy at time, but denies right at this moment. And she has had dizziness, but denies right now. History of Present Illness HPI narrative: Patient is a 22-year-old female who initially presented to the urgent treatment clinic was sent to the emergency department for my evaluation. States that she has had some progressive worsening over the last several months of some dizziness and some paresthesias in her hands and feet and also has had some discomfort in the posterior aspect of her neck today has a migraine that she has had for 3 days she states. No history of significant migraines. She had an MRI that was done a few days ago which was diagnostic of a Chiari I malformation. She has not yet seen a neurosurgeon. Denies any fevers denies any current neurologic symptoms including changes in vision coordination numbness weakness tingling in arms or legs etc. Related Data Home Medications Medication Instructions Recorded Confirmed bisoprolol fumarate 5 mg tablet 5 mg PO BID 04/29/23 04/29/23 hydroxychloroquine 200 mg tablet 200 mg PO DAILY 04/29/23 04/29/23 Allergies Allergy/AdvReac Type Severity Reaction Status Date / Time erythromycin base Allergy Intermediate soa, hives Verified 04/29/23 16:49 [ERYTHROMYCIN BASE] PFSH PFSH Disclaimer: The information contained in this section may have been updated after the patient was seen, as this information can be updated by other users. 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 (Reviewed 04/29/23 @ 17:07 by Alisa Perkins ([facility]), CORPORATE SAFETY DIRECTOR) Smoking Status: Never smoker second hand exposure: No alcohol intake: never substance use type: denies use current occupational status: employed Travel in the last 8 weeks: [place] the [place] household members: family housing: house number of children: 0 current occupation: [employer] current occupational exposures/hazards: No caffeine: Yes ROS Obtained: Yes All systems reviewed & no additional complaints except as documented Physical Exam General General appearance: alert and in no apparent distress Respiratory Respiratory exam: Present normal lung sounds bilaterally Cardiovascular Cardiovascular exam: Present regular rate; Absent tachycardia Neurological Exam Neurological exam: Present alert, oriented X3, CN II-XII intact and normal gait; Absent motor sensory deficit Medical Decision Making Chuck Inquiry Pt receiving controlled substance: No Vital Signs: 04/29/23 16:30 04/29/23 17:33 04/29/23 18:00 Temperature 98.4 F Temperature Source Oral Pulse Rate 53 L Pulse Rate [Right Radial] 66 54 L Respiratory Rate 18 18 Blood Pressure 133/82 Blood Pressure [Ri
[2023-04-29 17:39] LABS: Bacteria,Urine Trace /lpf
[2023-04-29 17:40] LABS: Urine Pregnancy, HCG Qual. Negative (Negative)
[2023-04-29 18:00] VITALS: BP 133/82; PULSE 53; O2SAT 99
[2023-04-29 18:38] VITALS: BP 110/73; BP 133/82; PULSE 53; PULSE 78; RESP 18; RESP 20; TEMP 36.7; TEMP 36.9; O2SAT 99
== END 2023-04-29 18:39 | disposition still patient (30) ==
LOC: UTC 17:11 → ER 17:23
PROVIDERS: Nurse Practitioner Family; Emergency Provider Student in an Organized Health Care Education/Training Program
DX: G44.89 Other headache syndrome (principal); Q07.00 Arnold-Chiari syndrome without spina bifida or hydrocephalus
CPT/HCPCS: 81001; 81025; 87086; 96361; 96374; 96375; 99284

== ENCOUNTER 2023-05-01 09:42 | Emergency (ER) | payer OTHER, SELFPAY ==
[2023-05-01] VITALS (8 sets, daily range): BP systolic 115–147; BP diastolic 62–94; PULSE 62–85; RESP 15–18; TEMP 36.7–37.2; O2SAT 97–98; BMI 28.7
--- NOTE | 2023-05-01 10:02 | CT_ITS ---
FINAL REPORT CLINICAL HISTORY: headache, weakness, recent dx chiari I, worse sx FINDINGS: Axial images of the head were obtained without contrast. Coronal reformatted images were also obtained.This study was performed with techniques to keep radiation doses as low as reasonably achievable (ALARA). Individualized dose reduction techniques using automated exposure control or adjustment of mA and/or kV according to the patient''s size were employed. Motion artifact seen on many sequences which limits exam sensitivity. There is no evidence of intracranial hemorrhage or mass. The ventricular size is within normal limits. There is no evidence of shift of the midline structures. No abnormal extra axial fluid collection is identified. No skull abnormality is seen on the bone window images. IMPRESSION: No acute intracranial abnormality. Reviewed, Interpreted and Dictated by Rk Weston III, MD Transcribed by Lucille Lainez Authenticated and [facility]
--- NOTE | 2023-05-01 10:04 | HMH.EDGENADL ---
Discharge Plan Disposition Patient Disposition: Home, Self-Care Condition: Good Prescriptions Prescriptions: No Action bisoprolol fumarate 5 mg tablet 5 mg PO BID hydroxychloroquine 200 mg tablet 200 mg PO DAILY Referrals Follow up/Referrals: Destiny Seymour PA [Primary Care Provider] - See instructions Activity Restrictions/Add. Instructions Additional Instructions/Restrictions: You were evaluated in the emergency department today. Please follow-up closely with your primary care provider. They can help arrange an expedited neurology follow-up. Return to the emergency department for new or worsening symptoms. Clinical Impressions Clinical Impression: Migraine Instructions Patient Instructions: DI for Migraine Discharge ED Provider: Thais Alcantar General Adult HPI General Chief complaint: Headache Stated complaint: headache, legs numb Time Seen by Provider: 05/01/23 09:56 Mode of Arrival: Ambulatory Source of Information: Patient Limitations: No Limitations Description of Symptoms (Recalled from ER Triage Doc. by RN): c/o SCANLON and tingling in her legs/weakness constant for 4 days. PT states she had a MRI a few days ago due to her SCANLON that started the past year with increased pain for the past few months. History of Present Illness HPI narrative: This patient is a 22-year-old female with history of bipolar disorder and Chiari I malformation recently diagnosed on MRI 04/26 presented to the emergency department for headache. Patient reports that she has had headache for the last 4 to 5 days, and nothing seems to make it better at home. She has tried Excedrin as well as Advil and other aeme-adn-hqaqpmh medications, but nothing makes it better or worse. She notes that she also has photophobia and feels weak in both of her upper and lower extremities. She still able to ambulate without difficulty. She denies any vision changes, numbness, tingling, saddle anesthesia, incontinence, or other concerns. She notes that she had previously been having issues like this prior to the MRI. She is currently awaiting an outpatient neurology evaluation as well as autoimmune work-up for transient neurologic symptoms. On medical record review, she has been seen here for similar symptoms on 04/29 with discharge home after reassuring exam. Related Data Home Medications Medication Instructions Recorded Confirmed bisoprolol fumarate 5 mg tablet 5 mg PO BID 04/29/23 04/29/23 hydroxychloroquine 200 mg tablet 200 mg PO DAILY 04/29/23 04/29/23 Allergies Allergy/AdvReac Type Severity Reaction Status Date / Time erythromycin base Allergy Intermediate soa, hives Verified 04/29/23 16:49 [ERYTHROMYCIN BASE] [facility] Disclaimer: The information contained in this section may have been updated after the patient was seen, as this information can be updated by other users. 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 Smoking Status: Unknown if ever smoked second hand exposure: No alcohol intake: never substance use type: denies use current occupational status: employed Travel in the last 8 weeks: [place] household members: family housing: house number of children: 0 current occupation: [employer] current occupational exposures/hazards: No caffeine: Yes ROS Obtained: Yes All systems reviewed & no additional complaints except as documented Physical Exam General General appearance: alert and in no apparent distress Head Head exam: atraumatic and normocephalic Eye Eye exam: Present normal appearance, PERRL and EOMI ENT ENT exam: Present normal exam, normal oropharynx, mucous membranes moist and normal external ear exam Neck Neck exam: Present normal inspection, full ROM and trachea midline; Absent tenderness Chest Chest inspection: Present normal inspection and symmetric chest wall rise; Absent tenderness Respiratory Respiratory exam: Present normal lara
[2023-05-01 10:23] LABS: Basophils % 0.4 % (0.1-2.0); Eosinophils % 0.4 % (0.1-12.0); Hematocrit 35.6 % (37.0-47.0); Lymphocytes # 0.9 K/mm3 (0.7-4.5); Lymphocytes % 20.5 % (10-50); Mean Corpuscular HGB Conc 36.3 g/dL (31.8-35.4); Mean Corpuscular Volume 90.7 fl (81-99); Mean Platelet Volume 7.6 fl (7.4-10.4); Monocytes # 0.4 K/mm3 (0.1-1.0); Monocytes % 10.1 % (1.7-9.3); Neutrophils # 2.9 K/mm3 (1.8-7.8); Neutrophils % 68.6 % (37.0-80.0); Platelet Count 212 K/mm3 (142-424); Red Blood Count 3.93 M/mm3 (4.20-5.40); Red Cell Distribution Width 12.6 % (11.5-17.5); White Blood Count 4.3 K/mm3 (4.8-10.8)
[2023-05-01 10:29] LABS: Chloride 107 mmol/L (98-107); Potassium 3.6 mmoL/L (3.5-5.1); Sodium 138 mmol/L (136-145)
[2023-05-01 10:32] LABS: Anion Gap 8.6 mEq/L (5-15); Blood Urea Nitrogen 9 mg/dl (7-17); Carbon Dioxide 26 mmol/L (22.0-30.0); Creatinine Clearance Estimated 162 mL/min (50-200); Estimated Glomerular Filt Rate 106 ml/min (>60); GFR (African American) 128 ML/MIN (>60); Glucose 90 mg/dl (74-100)
[2023-05-01 10:50] LABS: Coronavirus 19, PCR Not Detected (NotDetected); Influenza A, PCR Not Detected (NotDetected); Influenza B, PCR Not Detected (NotDetected)
[2023-05-01 11:13] LABS: HCG Qualitative, Serum Negative (Negative)
== END 2023-05-01 13:43 | disposition home or self-care (01) ==
PROVIDERS: Emergency Provider Emergency Medicine; PCP Physician Assistant
DX: G43.909 Migraine, unspecified, not intractable, without status migrainosus (principal); Q07.00 Arnold-Chiari syndrome without spina bifida or hydrocephalus; F31.9 Bipolar disorder, unspecified
CPT/HCPCS: 70450; 80048; 84703; 85025; 87636; 96361; 96374; 96375; 99284

== ENCOUNTER 2023-06-07 12:55 | Outpatient (RCR) | payer OTHER, SELFPAY | END 2023-06-07 14:00 | disposition home or self-care (01) | LOC: PT 12:55 | PROVIDERS: PCP Family Medicine; Visit Provider Nurse Practitioner Family | DX: R51.9 Headache, unspecified (principal); M54.2 Cervicalgia | CPT/HCPCS: 97163 ==

== ENCOUNTER 2023-07-23 04:00 | Emergency (ER) | payer BC, SELFPAY ==
[2023-07-23 04:02] VITALS: BP 142/106; PULSE 76; RESP 16; TEMP 36.8; O2SAT 99; BMI 28.3
--- NOTE | 2023-07-23 04:19 | HMH.EDGENADL ---
Discharge Plan Disposition Patient Disposition: Home, Self-Care Prescriptions Prescriptions: No Action metoprolol succinate 50 mg tablet extended release 24 hr 50 mg PO DAILY meclizine 25 mg tablet 25 mg PO DAILY PRN nicotine 14 mg/24 hr patch 24 hour 1 patch transdermal hydrochlorothiazide 12.5 mg tablet 12.5 mg PO DAILY mpeofhoabt-txukbdtzcqbua-wesm 50-325-40 mg tablet 1 tab PO Q4-6H tizanidine 4 mg tablet 4 mg PO HS Qty: 30 1RF Ubrelvy 100 mg tablet 100 mg PO ONCE PRN (Reason: migraine ) Qty: 10 1RF Rx Instructions: Take 100 mg by mouth immediately at onset of headache or first thing upon awakening with headache. May repeat after 2 hours if symptoms persist. Max dose 2 tablets in 24 hours. hydroxychloroquine 200 mg tablet 200 mg PO DAILY Referrals Follow up/Referrals: Destiny Seymour PA [Primary Care Provider] - See instructions Activity Restrictions/Add. Instructions Additional Instructions/Restrictions: Please follow-up with your primary care provider. Please return to the emergency department if you develop any new or worsening symptoms or become concerned for your health. Clinical Impressions Clinical Impression: Mild HTN, Burning sensation of skin Discharge ED Provider: Herve Tsai General Adult HPI General Chief complaint: PAIN Stated complaint: lightheaded, numbness in left hand, pain in lungs Time Seen by Provider: 07/23/23 04:10 Mode of Arrival: Ambulatory Source of Information: Patient Limitations: No Limitations Description of Symptoms (Recalled from ER Triage Doc. by RN): pt c/o hands going numb and pain in between shoulders for 2 hours and feels like her lungs are being tickle. pt also concerned about blood pressure History of Present Illness HPI narrative: 23-year-old female with history of Chiari I malformation, rheumatoid arthritis presents with multiple complaints. She reports that she is concerned that her blood pressure may be too high. She is on blood pressure medications, and it has not been changed recently. She reports that she has intermittent sensation of numbness in her hands. she denies any weakness She also reports intermittent sensation of burning of the skin on her upper back. Reports the symptoms been present for the last couple weeks. Did not seem to be brought on by anything in particular. She is concerned that there is something wrong with her blood that is causing it. She denies any significant headache chest pain abdominal pain shortness of breath recent fever or illness. Related Data Home Medications Medication Instructions Recorded Confirmed hydroxychloroquine 200 mg tablet 200 mg PO DAILY 04/29/23 05/10/23 qdlovlnucw-outuobzfctwxw-gpuoigia 1 tab PO Q4-6H 05/10/23 05/10/23 50 mg-325 mg-40 mg tablet hydrochlorothiazide 12.5 mg tablet 12.5 mg PO DAILY 05/10/23 05/10/23 meclizine 25 mg tablet 25 mg PO DAILY PRN 05/10/23 05/10/23 metoprolol succinate 50 mg 50 mg PO DAILY 05/10/23 05/10/23 tablet,extended release 24 hr nicotine 14 mg/24 hr daily 1 patch transdermal 05/10/23 05/10/23 transdermal patch Previous Rx's Medication Instructions Recorded tizanidine 4 mg tablet 4 mg PO HS #30 tabs 05/10/23 ubrogepant 100 mg tablet (Ubrelvy) 100 mg PO ONCE PRN migraine 05/10/23 #10 tabs Allergies Allergy/AdvReac Type Severity Reaction Status Date / Time erythromycin base Allergy Intermediate soa, hives Verified 05/10/23 11:09 [ERYTHROMYCIN BASE] [facility] Disclaimer: The information contained in this section may have been updated after the patient was seen, as this information can be updated by other users. Medical History Atypical chest pain Bipolar disorder Chest pain Chiari malformation Ganglion cyst of finger of right hand Headache Migraine Palpitations Supraventricular arrhythmia SVT (supraventricular tachycardia) Thyromegaly Transient neurological symptoms Surgical History No significant past surgical history Family History Other No significant family history 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 Smoking Status: Current every day smoker tobacco type: e-cigarettes second hand exposure: No alcohol intake: never substance use type: denies use current occupational status: employed Travel in the last 8 weeks: [place] household members: family housing: house number of children: 0 current occupation: [employer] current occupational exposures/hazards: No caffeine: Yes ROS Obtained: Yes All systems reviewed & no additional complaints except as documented Physical Exam General General appearance: alert and in no apparent distress Head Head exam: atraumatic and normocephalic Eye Eye exam: Present normal appearance, PERRL and EOMI ENT ENT exam: Present normal oropharynx and normal external ear exam Neck Neck exam: Present normal inspection and full ROM Chest Chest inspection: Present normal inspection and symmetric chest wall rise; Absent tenderness Respiratory Respiratory exam: Present normal lung sounds bilaterally; Absent respiratory distress Cardiovascular Cardiovascular exam: Present regular rate and normal rhythm Abdominal Exam Abdominal exam: Present soft; Absent distention, tenderness or guarding Extremities Exam Extremities exam: Present normal inspection; Absent edema or joint swelling Back Exam Back exam: Present normal inspection; Absent tenderness Neurological Exam Neurological exam: Present alert and oriented X3; Absent motor sensory deficit Psychiatric Psychiatric exam: Present normal affect and normal mood Skin Skin exam: Present warm, dry and normal color Lymphatic Lymphatic Findings: no adenopathy Medical Decision Making Medical Records Medical records reviewed: Yes I reviewed the patient's medical records. Chuck Inquiry Pt receiving controlled substance: No Chuck was queried for this patient: No Vital Signs: 07/23/23 04:02 07/23/23 04:25 Temperature 98.3 F 97.7 F Temperature Source Oral Oral Pulse Rate 68 Pulse Rate [Right] 76 Respiratory Rate 16 16 Blood Pressure 144/101 H Blood Pressure [Right Arm] 142/106 H Blood Pressure Mean [Right Arm] 118 Blood Pressure Source Automatic Cuff Blood Pressure Position Sitting 02 Sat by Pulse Oximetry 99 Oxygen Delivery Method Room Air Lab Data Lab results reviewed: Yes I reviewed the patient's lab results. Medical Decision Narrative: 23-year-old female with reported history of rheumatoid arthritis and Chiari malformation presents with multiple complaints including concern for high blood pressure, intermittent burning and numbness of the hands, intermittent burning sensation of the skin of the upper back. Differential diagnosis includes but limited to hypertensive urgency, hypertensive emergency, asymptomatic hypertension, neurovascular dysfunction, cord pathology. Physical exam shows no significant abnormalities. Patient's blood pressure is 150/100 in ED, elevated but not critically so. I had extensive discussion with patient regarding blood pressure goals and managment. No evidence of emergent pathology and no indication for laboratory imaging studies at this time based on history and exam. Patient encouraged to follow-up with PCP for further assessment. Procedures Risk/Benefits of Procedure(s) Were Explained: Yes Critical Care Critical Care Time Critical Care Time: No
[2023-07-23 04:25] VITALS: BP 144/101; PULSE 68; RESP 16; TEMP 36.5; O2SAT 97
== END 2023-07-23 04:26 | disposition home or self-care (01) ==
PROVIDERS: Emergency Provider Emergency Medicine; PCP Physician Assistant
DX: M54.6 Pain in thoracic spine (principal); R20.0 Anesthesia of skin; I10 Essential (primary) hypertension; Q07.00 Arnold-Chiari syndrome without spina bifida or hydrocephalus; M06.9 Rheumatoid arthritis, unspecified; F31.9 Bipolar disorder, unspecified; I47.10 Supraventricular tachycardia, unspecified; E01.0 Iodine-deficiency related diffuse (endemic) goiter; F17.290 Nicotine dependence, other tobacco product, uncomplicated
CPT/HCPCS: 99283

== ENCOUNTER 2023-08-09 15:59 | Outpatient (CLI) | payer BC, SELFPAY ==
[2023-08-09 16:18] LABS: Basophils % 0.8 % (0.1-2.0); Eosinophils # 0.1 K/mm3 (0.0-0.4); Eosinophils % 1.7 % (0.1-12.0); Hematocrit 38.8 % (37.0-47.0); Hemoglobin 13.9 g/dL (12.2-16.2); Lymphocytes # 1.8 K/mm3 (0.7-4.5); Lymphocytes % 31.7 % (10-50); Mean Corpuscular HGB Conc 35.8 g/dL (31.8-35.4); Mean Corpuscular Hemoglobin 31.9 pg (27.0-31.2); Mean Platelet Volume 8.1 fl (7.4-10.4); Monocytes # 0.3 K/mm3 (0.1-1.0); Monocytes % 5.8 % (1.7-9.3); Neutrophils # 3.3 K/mm3 (1.8-7.8); Platelet Count 273 K/mm3 (142-424); Red Blood Count 4.36 M/mm3 (4.20-5.40); Red Cell Distribution Width 12.9 % (11.5-17.5); White Blood Count 5.5 K/mm3 (4.8-10.8)
[2023-08-09 17:02] LABS: Alanine Aminotransferase 17 U/L (12-78); Albumin Level 4.4 g/dl (3.5-5.0); Albumin/Globulin Ratio 1.8 (1.1-1.8); Alkaline Phosphatase 74 U/L (38-126); Anion Gap 10.2 mEq/L (5-15); Aspartate Amino Transferase 18 U/L (14-36); Bilirubin,Total 0.2 mg/dl (0.2-1.3); Blood Urea Nitrogen 7 mg/dl (7-17); Calcium 8.9 mg/dl (8.4-10.2); Carbon Dioxide 28 mmol/L (22.0-30.0); Chloride 105 mmol/L (98-107); Estimated Glomerular Filt Rate 125 ml/min (>60); GFR (African American) 151 ML/MIN (>60); Globulin 2.4 g/dL (1.3-3.2); Glucose 99 mg/dl (74-100); Magnesium 1.8 mg/dl (1.6-2.3); Potassium 4.2 mmoL/L (3.5-5.1); Sodium 139 mmol/L (136-145); Total Protein,Serum 6.8 g/dl (6.3-8.2)
[2023-08-10 03:42] LABS: Progesterone 8.8 ng/mL (.); Testosterone,Total 24 ng/dL (13-71)
[2023-08-23 09:13] LABS: 1,25 Dihydroxy Vitamin D 50 pg/mL (.); 1,25-Dihydroxy, Vitamin D-2 <10 pg/mL (.); 1,25-Dihydroxy, Vitamin D-3 48 pg/mL (.)
== END 2023-08-09 23:59 ==
LOC: LAB 16:00
PROVIDERS: PCP Physician Assistant; Visit Provider Obstetrics & Gynecology
DX: R25.2 Cramp and spasm (principal); R53.83 Other fatigue; R68.82 Decreased libido; R63.5 Abnormal weight gain; Z68.30 Body mass index [BMI] 30.0-30.9, adult
CPT/HCPCS: 36415; 80053; 82652; 82670; 83735; 84144; 84403; 85025

== ENCOUNTER 2023-08-25 15:13 | Emergency (ER) | payer BC, SELFPAY ==
[2023-08-25 16:00] VITALS: BP 134/88; PULSE 75; RESP 21; TEMP 37.1; O2SAT 97; BMI 30.4
--- NOTE | 2023-08-25 16:02 | EXP.UTC ---
Discharge Plan Disposition Patient Disposition: Home, Self-Care Condition: Good Prescriptions Prescriptions: New methylprednisolone 4 mg Tablets,Dose Pack 4 mg PO DIRECTED 6 Days Qty: 21 0RF Rx Instructions: Take 1 pack as directed for 6 days [id number]-[id number]-KK [Bromfed DM] 2-30-10 mg/5 mL Syrup 5 ml PO Q6H PRN (Reason: Cough) Qty: 240 0RF amoxicillin [amoxicillin] 875 mg tablet 875 mg PO Q12H Qty: 20 0RF No Action metoprolol succinate 50 mg tablet extended release 24 hr 50 mg PO BID Qty: 60 5RF meclizine 25 mg tablet 25 mg PO DAILY PRN nicotine 14 mg/24 hr patch 24 hour 1 patch transdermal tizanidine 4 mg tablet 4 mg PO HS Qty: 30 1RF Ubrelvy 100 mg tablet 100 mg PO ONCE PRN (Reason: migraine ) Qty: 10 1RF Rx Instructions: Take 100 mg by mouth immediately at onset of headache or first thing upon awakening with headache. May repeat after 2 hours if symptoms persist. Max dose 2 tablets in 24 hours. drospirenone (contraceptive) 4 mg (28) tablet 1 tab PO DAILY Qty: 28 0RF Referrals Follow up/Referrals: Destiny Seymour PA [Primary Care Provider] - See instructions Activity Restrictions/Add. Instructions Additional Instructions/Restrictions: Drink plenty of fluids. Take tylenol or ibuprofen for pain or fever. Take the medications as directed. Follow up with your regular doctor. GO TO THE ER FOR ANY WORSENING SYMPTOMS Clinical Impressions Clinical Impression: Otitis media Stand Alone Forms Stand Alone Forms: Work/School Release Instructions Patient Instructions: Middle Ear Infection, Methylprednisolone, Amoxicillin Discharge ED Provider: Inderjit Marshall [facility] General Stated complaint: bilateral ear pain Time Seen by Provider: 08/25/23 16:02 History of Present Illness Provider Complaint: She states that for the past 3 days she has had bilateral ear pain. She denies any fever/chills. She has had sinus congestion also. Related Data Home Medications Medication Instructions Recorded Confirmed meclizine 25 mg tablet 25 mg PO DAILY PRN 05/10/23 08/09/23 nicotine 14 mg/24 hr daily 1 patch transdermal 05/10/23 08/09/23 transdermal patch Previous Rx's Medication Instructions Recorded tizanidine 4 mg tablet 4 mg PO HS #30 tabs 05/10/23 ubrogepant 100 mg tablet (Ubrelvy) 100 mg PO ONCE PRN migraine 05/10/23 #10 tabs metoprolol succinate 50 mg 50 mg PO BID #60 tabs 08/01/23 tablet,extended release 24 hr drospirenone (contraceptive) 4 mg 1 tab PO DAILY #28 tabs 08/09/23 (28) tablet amoxicillin 875 mg tablet 875 mg PO Q12H #20 tabs 08/25/23 cmqwftarfqbiltm-akytwnjekppvvvg-HD 5 ml PO Q6H PRN Cough #240 mL 08/25/23 2 mg-30 mg-10 mg/5 mL oral syrup (Bromfed DM) methylprednisolone 4 mg tablets in 4 mg PO DIRECTED 6 days #21 tabs 08/25/23 a dose pack Allergies Allergy/AdvReac Type Severity Reaction Status Date / Time erythromycin base Allergy Intermediate soa, hives Verified 08/09/23 08:53 [ERYTHROMYCIN BASE] [facility] Disclaimer: The information contained in this section may have been updated after the patient was seen, as this information can be updated by other users. Medical History (Updated 08/25/23 @ 16:28 by Inderjit Marshall APRN) Abnormal electrocardiogram [ECG] [EKG] Atypical chest pain Bipolar disorder Chest pain Chiari malformation Fatigue Ganglion cyst of finger of right hand Headache History of paroxysmal supraventricular tachycardia HTN (hypertension) Migraine Muscle cramps Palpitations Supraventricular arrhythmia SVT (supraventricular tachycardia) Thyromegaly Transient neurological symptoms Surgical History History of cardiac radiofrequency ablation No significant past surgical history Family History Other No significant family history 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 Smoking Status: Current every day smoker tobacco type: e-cigarettes second hand exposure: No alcohol intake: never substance use type: denies use current occupational status: employed Travel in the last 8 weeks: Inside the [place] household members: family housing: house number of children: 0 current occupation: [employer] current occupational exposures/hazards: No caffeine: Yes ROS Obtained: Yes All systems reviewed & no additional complaints except as documented Constitutional Constitutional: Denies chills, Reports fever(s) and Reports poor appetite Eyes Eyes: Denies eye discharge ENT Ears, Nose, Mouth, and Throat: Denies ear discharge, Reports otalgia, Denies hearing loss, Denies sinus pain and Reports sore throat Cardiovascular Cardiovascular: Denies chest pain and Denies dyspnea Respiratory Respiratory: Denies chest congestion, Reports cough and Denies dyspnea Gastrointestinal Gastrointestingal: Denies abdominal pain, diarrhea, nausea or vomiting Musculoskeletal Musculoskeletal: Denies arthralgias Integumentary/Breasts Skin/Breast: Denies rash Physical Exam General General appearance: alert and in no apparent distress Head Head exam: atraumatic, normocephalic and normal inspection Eye Eye exam: Present normal appearance; Absent PERRL or EOMI ENT ENT exam: Present mucous membranes moist and normal external ear exam Expanded ENT Exam TM/Canal exam: Bilateral TM: erythema, bulging and effusion Nose exam: Absent sinus tenderness Nasal speculum exam: Bilateral: normal Mouth exam: Present normal external inspection and other; Absent drooling Teeth exam: Present normal inspection Throat exam: Present tonsillar erythema and tonsillomegaly Neck Neck exam: Present normal inspection, full ROM and trachea midline; Absent tenderness, meningismus or lymphadenopathy Chest Chest inspection: Present normal inspection and symmetric chest wall rise; Absent tenderness Respiratory Respiratory exam: Present normal lung sounds bilaterally; Absent respiratory distress, wheezes or stridor Cardiovascular Cardiovascular exam: Present regular rate, normal rhythm and normal heart sounds; Absent tachycardia or irregular rhythm Abdominal Exam Abdominal exam: Present soft and normal bowel sounds; Absent distention, tenderness, guarding, rebound or rigidity Extremities Exam Extremities exam: Present normal inspection and normal capillary refill; Absent tenderness, joint swelling or calf tenderness Back Exam Back exam: Present normal inspection and full ROM; Absent tenderness, CVA tenderness (R) or CVA tenderness (L) Neurological Exam Neurological exam: Present alert, oriented X3, CN II-XII intact, normal gait and reflexes normal; Absent motor sensory deficit Psychiatric Psychiatric exam: Present normal affect and normal mood Skin Skin exam: Present warm, dry, intact and normal color Lymphatic Lymphatic Findings: no adenopathy Medical Decision Making Medical Records Medical records reviewed: No I reviewed the patient's medical records. Chuck Inquiry Pt receiving controlled substance: No Lab Data Lab results reviewed: Yes I reviewed the patient's lab results.
[2023-08-25 16:13] VITALS: BP 134/88; PULSE 75; RESP 21; TEMP 37.1; O2SAT 97
== END 2023-08-25 16:28 | disposition home or self-care (01) ==
PROVIDERS: Emergency Provider Nurse Practitioner Family; PCP Physician Assistant
DX: H66.93 Otitis media, unspecified, bilateral (principal); R09.81 Nasal congestion; F17.290 Nicotine dependence, other tobacco product, uncomplicated
CPT/HCPCS: 99212; 99214; G0463

== ENCOUNTER 2023-09-09 04:52 | Emergency (ER) | payer BC, SELFPAY ==
[2023-09-09 04:54] VITALS: BP 170/105; PULSE 89; RESP 20; TEMP 36.9; O2SAT 98; BMI 29.0
--- NOTE | 2023-09-09 05:06 | HMH.EDGENADL ---
Discharge Plan Disposition Patient Disposition: Home, Self-Care Prescriptions Prescriptions: No Action metoprolol succinate 50 mg tablet extended release 24 hr 50 mg PO BID Qty: 60 5RF meclizine 25 mg tablet 25 mg PO DAILY PRN nicotine 14 mg/24 hr patch 24 hour 1 patch transdermal tizanidine 4 mg tablet 4 mg PO HS Qty: 30 1RF Ubrelvy 100 mg tablet 100 mg PO ONCE PRN (Reason: migraine ) Qty: 10 1RF Rx Instructions: Take 100 mg by mouth immediately at onset of headache or first thing upon awakening with headache. May repeat after 2 hours if symptoms persist. Max dose 2 tablets in 24 hours. drospirenone (contraceptive) 4 mg (28) tablet 1 tab PO DAILY Qty: 28 0RF methylprednisolone 4 mg Tablets,Dose Pack 4 mg PO DIRECTED 6 Days Qty: 21 0RF Rx Instructions: Take 1 pack as directed for 6 days qjmkfexzhbsqzif-bzpubihyk-JZ [Bromfed DM] 2-30-10 mg/5 mL Syrup 5 ml PO Q6H PRN (Reason: Cough) Qty: 240 0RF amoxicillin [amoxicillin] 875 mg tablet 875 mg PO Q12H Qty: 20 0RF Referrals Follow up/Referrals: Destiny Seymour PA [Primary Care Provider] - See instructions Activity Restrictions/Add. Instructions Additional Instructions/Restrictions: You were given a dose of medication to treat a yeast infection in the emergency department. Given the severity of her symptoms, recommend using qdgq-yil-nwtiuhh medications for yeast infection as well. Clinical Impressions Clinical Impression: Yeast vaginitis Instructions Patient Instructions: DI for Urinary Tract Infection (UTI), DI for Urinary Tract Infection in Children Discharge ED Provider: Herve Tsai General Adult HPI General Chief complaint: Urogenital-Female Stated complaint: Burning, itching, possible yeast infection Time Seen by Provider: 09/09/23 05:04 Mode of Arrival: Ambulatory Source of Information: Patient Limitations: No Limitations Description of Symptoms (Recalled from ER Triage Doc. by RN): Patient reports that she has burning, itching, pain, to her vulvar area. She thinks it may be a yeast infection. It started about 3 days ago, patient has used no over the counter treatment at this time. Patient states that the skin is splitting today and causes extreme 10/10 pain. History of Present Illness HPI narrative: 23-year-old female with history of extensive ED visits presents with itching burning pain to her vulva. She reports that she is having vaginal discharge as well. Reports symptoms been ongoing for the last 3 days but the pain became much more severe today. Denies any bleeding. Denies concern for . Related Data Home Medications Medication Instructions Recorded Confirmed meclizine 25 mg tablet 25 mg PO DAILY PRN 05/10/23 08/09/23 nicotine 14 mg/24 hr daily 1 patch transdermal 05/10/23 08/09/23 transdermal patch Previous Rx's Medication Instructions Recorded tizanidine 4 mg tablet 4 mg PO HS #30 tabs 05/10/23 ubrogepant 100 mg tablet (Ubrelvy) 100 mg PO ONCE PRN migraine 05/10/23 #10 tabs metoprolol succinate 50 mg 50 mg PO BID #60 tabs 08/01/23 tablet,extended release 24 hr drospirenone (contraceptive) 4 mg 1 tab PO DAILY #28 tabs 08/09/23 (28) tablet amoxicillin 875 mg tablet 875 mg PO Q12H #20 tabs 08/25/23 eqeromlmxabqkfs-xovbffbinkgdiwx-PP 5 ml PO Q6H PRN Cough #240 mL 08/25/23 2 mg-30 mg-10 mg/5 mL oral syrup (Bromfed DM) methylprednisolone 4 mg tablets in 4 mg PO DIRECTED 6 days #21 tabs 08/25/23 a dose pack Allergies Allergy/AdvReac Type Severity Reaction Status Date / Time erythromycin base Allergy Intermediate soa, hives Verified 08/09/23 08:53 [ERYTHROMYCIN BASE] [facility] Disclaimer: The information contained in this section may have been updated after the patient was seen, as this information can be updated by other users. Medical History (Updated 09/09/23 @ 05:06 by Herve Tsai MD) Muscle cramps Fatigue Abnormal electrocardiogram [ECG] [EKG] HTN (hypertension) History of paroxysmal supraventricular tachycardia Migraine Chiari malformation Headache Transient neurological symptoms Thyromegaly Ganglion cyst of finger of right hand Supraventricular arrhythmia Atypical chest pain Palpitations Chest pain Bipolar disorder SVT (supraventricular tachycardia) Surgical History History of cardiac radiofrequency ablation No significant past surgical history Family History Other No significant family history 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 Smoking Status: Current every day smoker tobacco type: e-cigarettes second hand exposure: No alcohol intake: never substance use type: denies use current occupational status: employed Travel in the last 8 weeks: [place] the [place] household members: family housing: house number of children: 0 current occupation: [employer] current occupational exposures/hazards: No caffeine: Yes ROS Obtained: Yes All systems reviewed & no additional complaints except as documented Physical Exam General General appearance: alert and in no apparent distress Head Head exam: atraumatic and normocephalic Eye Eye exam: Present normal appearance, PERRL and EOMI ENT ENT exam: Present normal oropharynx and normal external ear exam Neck Neck exam: Present normal inspection and full ROM Chest Chest inspection: Present normal inspection and symmetric chest wall rise; Absent tenderness Respiratory Respiratory exam: Present normal lung sounds bilaterally; Absent respiratory distress Cardiovascular Cardiovascular exam: Present regular rate and normal rhythm Abdominal Exam Abdominal exam: Present soft; Absent distention, tenderness or guarding External exam: Present other (Deferred by patient) Extremities Exam Extremities exam: Present normal inspection; Absent edema or joint swelling Back Exam Back exam: Present normal inspection; Absent tenderness Neurological Exam Neurological exam: Present alert and oriented X3; Absent motor sensory deficit Psychiatric Psychiatric exam: Present normal affect and normal mood Skin Skin exam: Present warm, dry and normal color Lymphatic Lymphatic Findings: no adenopathy Medical Decision Making Medical Records Medical records reviewed: Yes I reviewed the patient's medical records. Chuck Inquiry Pt receiving controlled substance: No Chuck was queried for this patient: No Vital Signs: 09/09/23 04:54 09/09/23 05:16 Temperature 98.5 F 98.5 F Temperature Source Oral Oral Pulse Rate 89 Pulse Rate [Left Radial] 89 Respiratory Rate 20 20 Blood Pressure 170/105 H Blood Pressure [Right Arm] 170/105 H Blood Pressure Mean [Right Arm] 126 Blood Pressure Source [Right Arm] Automatic Cuff Blood Pressure Position Sitting Blood Pressure Position [Right Arm] Sitting 02 Sat by Pulse Oximetry 98 Oxygen Delivery Method Room Air Room Air Lab Data Lab results reviewed: Yes I reviewed the patient's lab results. Orders (Tests/Meds): ED MEDICATIONS Discontinued Medications Generic Name Dose Route Start Last Admin Trade Name Seng PRN Reason Stop Dose Admin Fluconazole 200 mg 09/09/23 05:05 09/09/23 05:09 Fluconazole 200mg Tablet PO 09/09/23 05:06 Not Given ONCE ONE Fluconazole 200 mg 09/09/23 05:07 09/09/23 05:09 Fluconazole 100mg Tablet PO 09/09/23 05:08 200 mg ONCE ONE Administration Medical Decision Narrative: 23-year-old female presents with vaginal burning, itching, discharge for the last several days. Differential diagnosis includes but limited to UTI, yeast vaginitis, cellulitis. History consistent with yeast infection. I offered the patient a vaginal exam which she declined. Will treat empirically as yeast infection. Patient given single dose of oral fluconazole and encouraged to use [id number] medications as well. Patient discharged in stable condition. Procedures Risk/Benefits of Procedure(s) Were Explained: Yes Critical Care Critical Care Time Critical Care Time: No
[2023-09-09] MEDS: FLUCONAZOLE 100MG TABLET 200 MG PO (05:09)
[2023-09-09 05:16] VITALS: BP 170/105; PULSE 89; RESP 20; TEMP 36.9; O2SAT 98
== END 2023-09-09 05:21 | disposition home or self-care (01) ==
LOC: ER 05:10
PROVIDERS: Emergency Provider Emergency Medicine; PCP Physician Assistant
DX: B37.31 Acute candidiasis of vulva and vagina (principal); I10 Essential (primary) hypertension; F17.210 Nicotine dependence, cigarettes, uncomplicated
CPT/HCPCS: 99283

== ENCOUNTER 2024-02-07 23:39 | Emergency (ER) | payer BC, SELFPAY ==
[2024-02-07 23:42] VITALS: BP 165/95; PULSE 85; RESP 18; TEMP 36.9; O2SAT 98; BMI 29.7
--- NOTE | 2024-02-07 23:48 | XR_ITS ---
PROCEDURE INFORMATION: Exam: XR Chest Exam date and time: 02/07/2024 11:48 PM Age: 23 years old Clinical indication: Shortness of breath; Additional info: SOA, tight chest, HX bronchitis TECHNIQUE: Imaging protocol: Radiologic exam of the chest. Views: 2 views. COMPARISON: CR XR CHEST PORTABLE 12/03/2023 12:27 AM FINDINGS: Lungs: Unremarkable. No consolidation. Pleural spaces: Unremarkable. No pleural effusion. No pneumothorax. Heart/Mediastinum: Unremarkable. No cardiomegaly. Bones/joints: Unremarkable. IMPRESSION: No acute findings. No infiltration identified.
--- NOTE | 2024-02-07 23:49 | ECG_ITS ---
APPROVED REPORT Exam: Resting ECG HR:67 bpm ECG Measurements Heart Rate 67 AXES OR 158 P 21 QRSd 96 QRS 41 QT 419 T 27 QTc 435 Conclusion SINUS RHYTHM WITH OCCASIONAL SUPRAVENTRICULAR PREMATURE COMPLEXES BORDERLINE ECG Electronically signed by : SERJIO GAMBOA, 02/08/2024 07:25:55
--- NOTE | 2024-02-07 23:55 | HMH.EDCP ---
Discharge Plan Disposition Patient Disposition: Home, Self-Care Condition: Good Prescriptions Prescriptions: New albuterol sulfate [Proventil HFA] 90 mcg/actuation HFA aerosol inhaler 2 inh inhalation Q6H PRN (Reason: shortness of breath or wheezing) Qty: 6.7 0RF No Action metoprolol succinate 50 mg tablet extended release 24 hr 50 mg PO BID Qty: 60 5RF Referrals Follow up/Referrals: Demetra Simmons APRN [Nurse Practitioner] - See instructions (recheck/follow up) Destiny Seymour PA [Primary Care Provider] - See instructions Activity Restrictions/Add. Instructions Additional Instructions/Restrictions: You were evaluated in the ER. You are appropriate for discharge at this time. Call the cardiology office and make an appointment for follow-up. Also make an appoint with your primary care physician for reevaluation in 3 days. Take the prescribed albuterol inhaler if needed for sensation of shortness of breath. Return to the ER with new, worsening, or otherwise concerning symptoms. Clinical Impressions Clinical Impression: Chest pain Print Language Print Language: [place] Discharge ED Provider: Eunice Mendoza General Chief Complaint: Shortness of Breath/Dyspnea Stated Complaint: chest (lung) pain, tightness, cough Time Seen by Provider: 02/07/24 23:48 Mode of Arrival: Ambulatory Source of Information: Patient Limitations: No Limitations Description of Symptoms (Recalled from ER Triage Doc. by RN): Pt presents to ED for SOB and chest tightness that started 2 days ago. Pt has hx of URI/bronchitis and feels like this could be what's wrong now. Pt states she has an inhaler but it's . Pt is A&O*4 and friend is bedside. History of Present Illness HPI narrative: 23-year-old female presents to the ER for shortness of breath and chest tightness that started 2 days ago. Patient states it feels like her left lower lung. She does have a history of prior bronchitis and feels like this is potentially the case now. She has not had fevers. Patient states she carries an inhaler since she had COVID, but it is . She states it has not been helping her symptoms. Patient states her shortness of breath is worse when she is up and about at work. Review of prior records demonstrates she has been seen for palpitations, abnormal ECG, also has a history of ablation for SVT. She is not experiencing palpitations. She states she was started on a new control a few weeks ago. She does not report a history of blood clots or pain or swelling in the legs. Related Data Previous Rx's ?Medication ?Instructions ?Recorded metoprolol succinate 50 mg 50 mg PO BID #60 tabs 08/01/23 tablet,extended release 24 hr albuterol sulfate 90 mcg/actuation 2 inh inhalation Q6H PRN shortness 02/08/24 aerosol inhaler (Proventil HFA) of breath or wheezing #6.7 grams Allergies Allergy/AdvReac Type Severity Reaction Status Date / Time erythromycin base Allergy Intermediate soa, hives Verified 01/19/24 08:52 [ERYTHROMYCIN BASE] [facility] Disclaimer: The information contained in this section may have been updated after the patient was seen, as this information can be updated by other users. Medical History Muscle cramps Fatigue Abnormal electrocardiogram [ECG] [EKG] HTN (hypertension) History of paroxysmal supraventricular tachycardia Migraine Chiari malformation Headache Transient neurological symptoms Thyromegaly Ganglion cyst of finger of right hand Supraventricular arrhythmia Atypical chest pain Palpitations Chest pain Bipolar disorder SVT (supraventricular tachycardia) Surgical History History of cardiac radiofrequency ablation No significant past surgical history Family History Other No significant family history 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 Smoking Status: Current every day smoker tobacco type: e-cigarettes second hand exposure: No alcohol intake: never substance use type: denies use current occupational status: employed Travel in the last 8 weeks: Inside the [place] household members: family housing: house number of children: 0 current occupation: [employer] current occupational exposures/hazards: No caffeine: Yes ROS Obtained: Yes All systems reviewed & no additional complaints except as documented Constitutional Constitutional: Denies chills, Denies fever(s), Denies headache(s) and Denies weakness Eyes Eyes: Denies change in vision ENT Ears, Nose, Mouth, and Throat: Denies dizziness, Denies headache(s), Denies nasal congestion and Denies sore throat Cardiovascular Cardiovascular: Reports chest pain, Reports dyspnea and Denies leg edema Respiratory Respiratory: Denies cough and Reports dyspnea Gastrointestinal Gastrointestingal: Denies constipation, diarrhea, nausea or vomiting Genitourinary Female Genitourinary: Denies dysuria Musculoskeletal Musculoskeletal: Denies arthralgias, Denies myalgias, Denies numbness and Denies tingling Integumentary/Breasts Skin/Breast: Denies change in pigmentation Neurologic Neurologic: Denies dizziness, Denies headache(s), Denies numbness, Denies tingling and Denies weakness Physical Exam General General appearance: alert and in no apparent distress Head Head exam: atraumatic and normocephalic Eye Eye exam: Present PERRL and EOMI ENT ENT exam: Present mucous membranes moist Neck Neck exam: Present normal inspection and full ROM Chest Chest inspection: Present symmetric chest wall rise Respiratory Respiratory exam: Present normal lung sounds bilaterally; Absent respiratory distress, wheezes or stridor Cardiovascular Cardiovascular exam: Present regular rate and normal rhythm Abdominal Exam Abdominal exam: Present soft; Absent distention or tenderness Extremities Exam Extremities exam: Present full ROM; Absent edema or calf tenderness Neurological Exam Neurological exam: Present alert and oriented X3; Absent motor sensory deficit Psychiatric Psychiatric exam: Present normal affect and normal mood Skin Skin exam: Present warm and dry HEART Score HEART Score HEART Score assessment performed?: No History (anamnesis): Slightly suspicious ECG: Normal Age: <45 years Risk factors: 1-2 risk factors Troponin: </= normal limit HEART Score: 1 Critical Care Critical Care Time Critical Care Time: No Medical Decision Making Medical Records Medical records reviewed: Yes I reviewed the patient's medical records. MR Comment: See HPI Chuck Inquiry Pt receiving controlled substance: No Vital Signs Vital Signs: 02/07/24 23:42 02/08/24 00:41 02/08/24 00:41 Temperature 98.4 F Temperature Source Oral Pulse Rate 68 60 Pulse Rate [Left] 85 Respiratory Rate 18 Blood Pressure [Right Arm] 165/95 H Blood Pressure Mean [Right Arm] 118 02 Sat by Pulse Oximetry 98 Oxygen Delivery Method Room Air Lab Data Labs: Lab Results 02/07/24 23:48: VBG pH 7.44 H, VBG pCO2 31.4 L, VBG pO2 90.1 H, VBG HCO3 20.9 L, VBG Total CO2 21.9 L, VBG O2 Saturation 97.2 H, VBG Base Excess -3.2 L, VBG Lactic Acid 2.2 H 02/07/24 23:50: WBC 5.7, RBC 4.23, Hgb 13.5, Hct 39.3, MCV 93.0, MCH 31.8 H, MCHC 34.2, RDW 13.1, Plt Count 328, MPV 7.8, Neut % (Auto) 58.7, Lymph % (Auto) 35.8, [place] % (Auto) 4.2, Eos % (Auto) 0.5, Baso % (Auto) 0.6, Neut # (Auto) 3.3, Lymph # (Auto) 2.0, [place] # (Auto) 0.2, Eos # (Auto) 0.0, Baso # (Auto) 0.0, D-Dimer < 0.25, Sodium 141, Potassium 3.6, Chloride 107, Carbon Dioxide 24, Anion Gap 13.6, BUN 7, Creatinine 0.60, Estimated Creat Clear 200, Estimated GFR 125, Est GFR ( Amer) 151, Glucose 96, Calcium 9.6, Total Bilirubin 0.7, AST 28, ALT 18, Alkaline Phosphatase 63, Total Protein 7.8, Albumin 4.5, Globulin 3.3 H, Albumin/Globulin Ratio 1.4, Lipase 79, Serum HCG, Qual Negative 02/07/24 23:50 02/07/24 23:50 Response Orders (Tests/Meds): ED MEDICATIONS Discontinued Medications Generic Name Dose Route Start Last Admin Trade Name Freq PRN Reason Stop Dose Admin Albuterol/Ipratropium 3 ml 02/07/24 23:48 02/08/24 00:40 Ipratropium/Albuterol 3 Ml Neb IH 02/07/24 23:49 3 ml ONCE ONE Administration ORDERS Category Date Time Status CXR 2 view (NOT portable) [XR chest 2V] Stat Exams 02/07/24 23:48 Completed CBC w/Auto Diff [Complete Blood Count Auto Diff] Stat Lab 02/07/24 23:50 Completed CMP [Comprehensive Metabolic Panel] Stat Lab 02/07/24 23:50 Results D-Dimer Stat Lab 02/07/24 23:50 Completed HCG Qualitative, Serum Stat Lab 08/07/24 23:50 Completed Lipase Stat Lab 02/07/24 23:50 Completed Trop I [Troponin I] Stat Lab 02/07/24 23:50 Results Troponin I Q3H Lab 02/08/24 03:00 Ordered Troponin I Q3H Lab 02/08/24 06:00 Ordered VBG [Venous Blood Gas] Stat RT 02/07/24 23:48 Completed ECG Request Stat Y 02/07/24 23:49 Ordered MDM Narrative Medical Decision Narrative: In summary, this 23-year-old female presents to the emergency department today with chest tightness, shortness of breath. On initial evaluation patient is hemodynamically stable, afebrile, saturating well on room air, cardiopulmonary exam is benign, however patient believes breathing treatments have helped her previously so a DuoNeb was ordered as part of her treatment in the ER. No calf swelling or tenderness. Differential diagnosis includes but is not limited to ACS, PE, anxiety, bronchitis, pneumonia, upper respiratory infection, pancreatitis, electrolyte abnormality, arrhythmia. Based on these concerns, I ordered cardiac workup, patient cannot be ruled out with the PERC criteria, so D-dimer was ordered, chest x-ray, serum labs. ECG personally interpreted demonstrates sinus rhythm with occasional PAC, normal axis, rate 67, normal NM and QTc, no STEMI. Patient received DuoNeb for treatment. On reassessment after this, her breath sounds are unchanged, she continues to saturate well, but she states she feels slightly improved. Labs personally reviewed demonstrate no actionable abnormalities, undetectably low troponin which is reassuring given patient has had symptoms for more than 24 hours, reassuring against ACS, patient also has an undetectable D-dimer which was reassuring against PE, test negative. Chest x-ray personally interpreted is negative for acute intrathoracic abnormality. See radiology read for final interpretation. Patient states she feels improved and is appropriate for discharge. Given her subjective symptom improvement after DuoNeb, and her having a albuterol inhaler, I prescribed this medication for her for use as needed. I also referred her back to cardiology for follow-up since she has not seen them recently. Patient was given instructions on symptomatic management, follow up instructions, and return precautions for the emergency department. Patient indicated understanding and was discharged in stable condition.
--- NOTE | 2024-02-07 23:57 | PC.NURSE ---
Pt to CT w/ hand assembler for puller over
[2024-02-08 00:16] LABS: Alanine Aminotransferase 18 U/L (12-78); Albumin Level 4.5 g/dl (3.5-5.0); Albumin/Globulin Ratio 1.4 (1.1-1.8); Alkaline Phosphatase 63 U/L (38-126); Anion Gap 13.6 mEq/L (5-15); Aspartate Amino Transferase 28 U/L (14-36); Bilirubin,Total 0.7 mg/dl (0.2-1.3); Blood Urea Nitrogen 7 mg/dl (7-17); Calcium 9.6 mg/dl (8.4-10.2); Carbon Dioxide 24 mmol/L (22.0-30.0); Chloride 107 mmol/L (98-107); Creatinine Clearance Estimated 200 mL/min (50-200); Estimated Glomerular Filt Rate 125 ml/min (>60); GFR (African American) 151 ML/MIN (>60); Globulin 3.3 g/dL (1.3-3.2); Glucose 96 mg/dl (74-100); Potassium 3.6 mmoL/L (3.5-5.1); Sodium 141 mmol/L (136-145); Total Protein,Serum 7.8 g/dl (6.3-8.2)
[2024-02-08 00:18] LABS: Lipase 79 U/L (23-300)
[2024-02-08 00:18] LABS: VBG Base Excess -3.2 mmol/L (-2.4-2.3); VBG HCO3 20.9 mmol/L (23-30); VBG Oxygen Saturation 97.2 % (50-70); VBG PCO2 31.4 mmol/L (35-51); VBG PH 7.44 mmol/L (7.31-7.41); VBG PO2 90.1 mmol/L (28-40); VBG Total CO2 21.9 mmol/L (23-27)
[2024-02-08 00:19] LABS: Lactate Venous 2.2 mmol/L (0.4-2.0)
[2024-02-08 00:19] LABS: HCG Qualitative, Serum Negative (Negative)
[2024-02-08 00:23] LABS: D-Dimer < 0.25 ug/mL (0.0-0.5)
[2024-02-08 00:31] LABS: Basophils % 0.6 % (0.1-2.0); Eosinophils % 0.5 % (0.1-12.0); Hematocrit 39.3 % (37.0-47.0); Hemoglobin 13.5 g/dL (12.2-16.2); Lymphocytes % 35.8 % (10-50); Mean Corpuscular HGB Conc 34.2 g/dL (31.8-35.4); Mean Corpuscular Hemoglobin 31.8 pg (27.0-31.2); Mean Platelet Volume 7.8 fl (7.4-10.4); Monocytes # 0.2 K/mm3 (0.1-1.0); Monocytes % 4.2 % (1.7-9.3); Neutrophils # 3.3 K/mm3 (1.8-7.8); Neutrophils % 58.7 % (37.0-80.0); Platelet Count 328 K/mm3 (142-424); Red Blood Count 4.23 M/mm3 (4.20-5.40); Red Cell Distribution Width 13.1 % (11.5-17.5); White Blood Count 5.7 K/mm3 (4.8-10.8)
[2024-02-08] MEDS: IPRATROPIUM/ALBUTEROL 3 ML NEB IH (00:40)
[2024-02-08 00:41] VITALS: PULSE 60; PULSE 68
[2024-02-08 00:50] LABS: Troponin I < 0.01 ng/ml (0.00-0.034)
[2024-02-08 01:00] VITALS: BP 137/77; PULSE 71; RESP 15; TEMP 36.7; O2SAT 99
== END 2024-02-08 01:01 | disposition home or self-care (01) ==
PROVIDERS: Emergency Provider Emergency Medicine; PCP Physician Assistant
DX: R07.89 Other chest pain (principal); R06.02 Shortness of breath; F17.290 Nicotine dependence, other tobacco product, uncomplicated; I49.1 Atrial premature depolarization; I10 Essential (primary) hypertension
CPT/HCPCS: 71046; 80053; 82803; 83690; 84484; 84703; 85025; 85378; 93005; 99284; J7620

== ENCOUNTER 2024-03-11 13:01 | Emergency (ER) | payer BC, SELFPAY ==
[2024-03-11 13:31] VITALS: BP 147/92; PULSE 94; RESP 17; TEMP 36.7; O2SAT 99; BMI 29.3
--- NOTE | 2024-03-11 13:46 | EXP.UTC ---
Discharge Plan Disposition Patient Disposition: Home, Self-Care Condition: Good Prescriptions Prescriptions: New amoxicillin-pot clavulanate 875-125 mg Tablet 1 tab PO Q12H 10 Days Qty: 20 0RF methylprednisolone [Medrol (Blaine)] 4 mg tablets,dose pack See Rx Instructions .Route .COMPLEX 6 Days Qty: 21 0RF Rx Instructions: taper pack; No Action metoprolol succinate 50 mg tablet extended release 24 hr 50 mg PO BID Qty: 60 5RF albuterol sulfate [Proventil HFA] 90 mcg/actuation HFA aerosol inhaler 2 inh inhalation Q6H PRN (Reason: shortness of breath or wheezing) Qty: 6.7 0RF Referrals Follow up/Referrals: Destiny Seymour PA [Primary Care Provider] - See instructions Activity Restrictions/Add. Instructions Additional Instructions/Restrictions: *Monitor Temp, Over the counter Motrin or Tylenol as directed/as needed Tylenol every 4 hours and Motrin every 6 hours (as long as your family doctor has told you that you can take it) for fever or pain. and straight to ER if unable to lower temp less than 101.0 after medication given *Warm salt water gargles may help to soothe the throat *Throat Lozenges? *Warm fluids like tea with honey may help to soothe the throat? *Sleep elevated *Humidifier/Vaporizer *If you did not take Penicillin shot or was unable to, start taking antibiotic immediately and make sure that you take it for the FULL length of time although you should start to feel better in 24-48 hours *change toothbrush and toothpaste 24-48 hours after starting to take antibiotics so you do not reinfect yourself Monitor Temp. Tylenol and/or Ibuprofen as needed. ER if fever is no less than 101 despite alternating Tylenol and Ibuprofen * Encourage fluids, water, Gatorade, powerade, pedialyte if infant/toddler/or child *Cold fluids, popsicles and ice cream may feel good on his throat Follow up IMMEDIATELY for new or worsening symptoms or no Noticeable improvement over the next 48-72 hours. 911 for difficulty breathing or swallowing Clinical Impressions Clinical Impression: Strep throat Stand Alone Forms Stand Alone Forms: Work/School Release Instructions Patient Instructions: DI for Strep Throat, Strep Throat Print Language Print Language: [place] Discharge ED Provider: Sandra Pereyra [facility] [place] HPI General Stated complaint: sore throat, headache, cough, draininage Mode of Arrival: Ambulatory Source of Information: Patient Limitations: No Limitations Time Seen by Provider: 03/11/24 13:46 Description of Symptoms (Recalled from Triage Doc. by RN): pt to the [facility] with throat, neck and back soreness sicne monday night HEENT Symptoms (Recalled from RN notes): Yes (sore throat) Resp Symptoms (Recalled from RN notes): Yes Skin Symptoms (Recalled from RN notes): No MS Symptoms (Recalled from RN notes): No Functional Status (Recalled from RN notes): WDL History of Present Illness Provider Complaint: Patient states that she started feeling bad on Monday with sore throat and blisters on her throat States she had some left over amoxicillin and has been taking it but her throat has continued to get worse and today it was hurting her when she would swallow and blisters was everywhere in there so she came in to get checked Related Data Previous Rx's ?Medication ?Instructions ?Recorded metoprolol succinate 50 mg 50 mg PO BID #60 tabs 08/01/23 tablet,extended release 24 hr albuterol sulfate 90 mcg/actuation 2 inh inhalation Q6H PRN shortness 02/08/24 aerosol inhaler (Proventil HFA) of breath or wheezing #6.7 grams amoxicillin 875 mg-potassium 1 tab PO Q12H 10 days #20 tabs 03/11/24 clavulanate 125 mg tablet methylprednisolone 4 mg tablets in See Rx Instructions .Route 03/11/24 a dose pack (Medrol (Blaine)) .COMPLEX 6 days #21 tabs Allergies Allergy/AdvReac Type Severity Reaction Status Date / Time erythromycin base Allergy Intermediate soa, hives Verified 01/19/24 08:52 [ERYTHROMYCIN BASE] Worker's Comp Is this a Worker's Comp case?: No [facility] Disclaimer: The information contained in this section may have been updated after the patient was seen, as this information can be updated by other users. Medical History Muscle cramps Fatigue Abnormal electrocardiogram [ECG] [EKG] HTN (hypertension) History of paroxysmal supraventricular tachycardia Migraine Chiari malformation Headache Transient neurological symptoms Thyromegaly Ganglion cyst of finger of right hand Supraventricular arrhythmia Atypical chest pain Palpitations Chest pain Bipolar disorder SVT (supraventricular tachycardia) Surgical History History of cardiac radiofrequency ablation No significant past surgical history Family History Other No significant family history 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 Smoking Status: Current every day smoker tobacco type: e-cigarettes second hand exposure: No alcohol intake: never substance use type: denies use current occupational status: employed Travel in the last 8 weeks: [place] the [place] household members: family housing: house number of children: 0 current occupation: [employer] current occupational exposures/hazards: No caffeine: Yes ROS Obtained: Yes All systems reviewed & no additional complaints except as documented and Yes Systems reviewed as appropriate & no additional complaints except as documented Constitutional Constitutional: Reports system reviewed and no additional complaints, except as documented, Reports as per HPI and Reports headache(s) ENT Ears, Nose, Mouth, and Throat: Reports system reviewed and no additional complaints, except as documented, Reports as per HPI, Reports headache(s), Reports nasal congestion, Reports nasal discharge and Reports sore throat Cardiovascular Cardiovascular: Reports system reviewed and no additional complaints, except as documented and Reports as per HPI Respiratory Respiratory: Reports system reviewed and no additional complaints, except as documented, Reports as per HPI and Reports cough Gastrointestinal Gastrointestingal: Reports system reviewed and no additional complaints, except as documented and as per HPI Neurologic Neurologic: Reports headache(s) Physical Exam General General appearance: alert and in no apparent distress ENT ENT exam: Present mucous membranes moist Expanded ENT Exam Nose exam: Absent sinus tenderness Throat exam: Present tonsillar erythema, tonsillomegaly and tonsillar exudate Respiratory Respiratory exam: Present normal lung sounds bilaterally; Absent respiratory distress or wheezes Cardiovascular Cardiovascular exam: Present regular rate, normal rhythm and normal heart sounds Neurological Exam Neurological exam: Present alert, oriented X3 and normal gait Medical Decision Making Chuck Inquiry Pt receiving controlled substance: No Chuck was queried for this patient: No Vital Signs: 03/11/24 13:31 Temperature 98.1 F Temperature Source Oral Pulse Rate [Left Radial] 94 H Respiratory Rate 17 Blood Pressure [Right Arm] 147/92 H Blood Pressure Mean [Right Arm] 110 Blood Pressure Source [Right Arm] Automatic Cuff Blood Pressure Position [Right Arm] Sitting 02 Sat by Pulse Oximetry 99 Oxygen Delivery Method Room Air Lab Data Lab results reviewed: Yes I reviewed the patient's lab results.
[2024-03-11 13:47] LABS: UTC Strep Screen (Rapid) Positive (Negative)
[2024-03-11 14:05] VITALS: BP 147/92; PULSE 94; RESP 17; TEMP 36.7; O2SAT 99
== END 2024-03-11 14:07 | disposition home or self-care (01) ==
PROVIDERS: Emergency Provider Nurse Practitioner; PCP Physician Assistant
DX: J02.0 Streptococcal pharyngitis (principal); R51.9 Headache, unspecified; R05.9 Cough, unspecified; R09.81 Nasal congestion
CPT/HCPCS: 87880; 99212; 99214; G0463

== ENCOUNTER 2024-04-22 11:34 | Emergency (ER) | payer BC, SELFPAY ==
[2024-04-22 13:00] VITALS: BP 131/89; PULSE 76; RESP 18; TEMP 37.1; O2SAT 99; BMI 29.8
--- NOTE | 2024-04-22 13:11 | ED_ITS ---
Discharge Plan Disposition Patient Disposition: Home, Self-Care Condition: Good Prescriptions Prescriptions: New methylprednisolone [Medrol (Blaine)] 4 mg tablets,dose pack See Rx Instructions .Route .COMPLEX 6 Days Qty: 21 0RF Rx Instructions: taper pack; No Action metoprolol succinate 50 mg tablet extended release 24 hr 50 mg PO BID Qty: 60 5RF Slynd 4 mg (28) tablet 1 tab PO DAILY Qty: 84 3RF Referrals Follow up/Referrals: Destiny Seymour PA [Primary Care Provider] - See instructions Activity Restrictions/Add. Instructions Additional Instructions/Restrictions: Take your Ibuprofen as prescribed Follow up with your Family Doctor and/or Rheumotologist Start oral steriod pack Clinical Impressions Clinical Impression: Rheumatoid arthritis flare Instructions Patient Instructions: DI for Rheumatoid Arthritis, Rheumatoid Arthritis (Alternative Therapy) Print Language Print Language: [place] Discharge ED Provider: Sandra Pereyra [facility] [place] HPI General Stated complaint: Rhuematoid arthiritis flare up Mode of Arrival: Ambulatory Source of Information: Patient Limitations: No Limitations Time Seen by Provider: 04/22/24 13:11 Description of Symptoms (Recalled from Triage Doc. by RN): PATIENT C/O RHEUMATOID ARTHRITIS FLARE-UP X 3 DAYS. PATIENT C/O INFLAMMATION TO BACK, NECK, HANDS, AND AROUND LUNGS HEENT Symptoms (Recalled from RN notes): No Resp Symptoms (Recalled from RN notes): No Skin Symptoms (Recalled from RN notes): No MS Symptoms (Recalled from RN notes): Yes Functional Status (Recalled from RN notes): WNL History of Present Illness Provider Complaint: Patient states that she has a hx of Rheumatoid arthritis states that she feels like she is having a flare States that she is having stiffness and achy feeling in her back, neck, hands, arms and all over States that she seen a Pulverizer Feeder in [place] and was on medication but stopped taking it and is waiting to get into new one states that she has Ibuprofen at home but it wasnt helping Related Data Previous Rx's ?Medication ?Instructions ?Recorded metoprolol succinate 50 mg 50 mg PO BID #60 tabs 08/01/23 tablet,extended release 24 hr drospirenone (contraceptive) 4 mg 1 tab PO DAILY #84 tabs 04/04/24 (28) tablet (Slynd) methylprednisolone 4 mg tablets in See Rx Instructions .Route 04/22/24 a dose pack (Medrol (Blaine)) .COMPLEX 6 days #21 tabs Allergies Allergy/AdvReac Type Severity Reaction Status Date / Time erythromycin base Allergy Intermediate soa, lopez Verified 01/19/24 08:52 [ERYTHROMYCIN BASE] Worker's Comp Is this a Worker's Comp case?: No [facility] Disclaimer: The information contained in this section may have been updated after the patient was seen, as this information can be updated by other users. Medical History Muscle cramps Fatigue Abnormal electrocardiogram [ECG] [EKG] HTN (hypertension) History of paroxysmal supraventricular tachycardia Migraine Chiari malformation Headache Transient neurological symptoms Thyromegaly Ganglion cyst of finger of right hand Supraventricular arrhythmia Atypical chest pain Palpitations Chest pain Bipolar disorder SVT (supraventricular tachycardia) Surgical History History of cardiac radiofrequency ablation No significant past surgical history Family History Other No significant family history 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 Smoking Status: Current every day smoker tobacco type: e-cigarettes second hand exposure: No alcohol intake: never substance use type: denies use current occupational status: employed Travel in the last 8 weeks: [place] the [place] household members: family housing: house number of children: 0 current occupation: [employer] current occupational exposures/hazards: No caffeine: Yes ROS Obtained: Yes All systems reviewed & no additional complaints except as documented and Yes Systems reviewed as appropriate & no additional complaints except as documented Constitutional Constitutional: Reports system reviewed and no additional complaints, except as documented and Reports as per HPI ENT Ears, Nose, Mouth, and Throat: Reports system reviewed and no additional complaints, except as documented and Reports as per HPI Cardiovascular Cardiovascular: Reports system reviewed and no additional complaints, except as documented and Reports as per HPI Respiratory Respiratory: Reports system reviewed and no additional complaints, except as documented and Reports as per HPI Gastrointestinal Gastrointestingal: Reports system reviewed and no additional complaints, except as documented and as per HPI Genitourinary Female Genitourinary: Reports system reviewed and no additional complaints, except as documented and Reports as per HPI Musculoskeletal Musculoskeletal: Reports system reviewed and no additional complaints, except as documented, Reports as per HPI and Reports other Comments: hx of Rheumatoid arthritis thinks she is having a flare Physical Exam General General appearance: alert and in no apparent distress ENT ENT exam: Present mucous membranes moist Respiratory Respiratory exam: Present normal lung sounds bilaterally; Absent respiratory distress or wheezes Cardiovascular Cardiovascular exam: Present regular rate, normal rhythm and normal heart sounds Abdominal Exam Abdominal exam: Present soft and normal bowel sounds; Absent distention or tenderness Back Exam Comment: reports achy like feeling in her back, arms, shoulders, hands Denies injury Neurological Exam Neurological exam: Present alert, oriented X3 and normal gait Medical Decision Making Medical Records Screening: Per USPSTF and CDC recommendations, given the prevalence of disease in our region, it is our hospital?s policy to screen for HIV and viral Hepatitis for all patients aged 18 and over and those with ongoing risk factors. Chuck Inquiry Pt receiving controlled substance: No Chuck was queried for this patient: No Vital Signs: 04/22/24 13:00 Temperature 98.7 F Temperature Source Oral Pulse Rate [Left Brachial] 76 Respiratory Rate 18 Blood Pressure [Left Arm] 131/89 Blood Pressure Mean [Left Arm] 103 Blood Pressure Source [Left Arm] Automatic Cuff Blood Pressure Position [Left Arm] Sitting 02 Sat by Pulse Oximetry 99 Oxygen Delivery Method Room Air
[2024-04-22 13:25] VITALS: BP 131/89; PULSE 76; RESP 18; TEMP 37.1; O2SAT 99
== END 2024-04-22 13:29 | disposition home or self-care (01) ==
PROVIDERS: Emergency Provider Nurse Practitioner; PCP Physician Assistant
DX: M06.9 Rheumatoid arthritis, unspecified (principal)
CPT/HCPCS: 99213; G0381

== ENCOUNTER 2024-06-05 11:28 | Emergency (ER) | payer BC, SELFPAY ==
[2024-06-05 12:00] VITALS: BP 153/83; PULSE 70; RESP 20; TEMP 36.9; O2SAT 98; BMI 30.2
--- NOTE | 2024-06-05 12:09 | ED_ITS ---
Discharge Plan Disposition Patient Disposition: Home, Self-Care Condition: Good Prescriptions Prescriptions: New cefdinir 300 mg capsule 300 mg PO BID Qty: 20 0RF Vitamin 28 mg iron- 800 mcg tablet 1 tab PO DAILY 30 Days Qty: 30 5RF No Action metoprolol succinate 50 mg tablet extended release 24 hr 50 mg PO BID Qty: 60 5RF Referrals Follow up/Referrals: Destiny Seymour PA [Primary Care Provider] - See instructions Activity Restrictions/Add. Instructions Additional Instructions/Restrictions: Drink plenty of fluids. Take tylenol for pain or fever. Take the medications as directed. Follow up with your regular doctor. GO TO THE ER FOR ANY WORSENING SYMPTOMS Clinical Impressions Clinical Impression: Strep throat, Stand Alone Forms Stand Alone Forms: Work/School Release Instructions Patient Instructions: Diet, DI for Strep Throat Print Language Print Language: Gabonese Discharge ED Provider: Inderjit Marshall [facility] [place] General Stated complaint: chest congestion, cough, sore throat Mode of Arrival: Ambulatory Source of Information: Patient Limitations: No Limitations Time Seen by Provider: 06/05/24 12:09 Description of Symptoms (Recalled from Triage Doc. by RN): PATIETN C/O SOA, CHEST CONGESTION, CHILLS, LUNG/RIB PAIN, COUGH, AND SORE THROAT SINCE MONDAY HEENT Symptoms (Recalled from RN notes): Yes Resp Symptoms (Recalled from RN notes): Yes Skin Symptoms (Recalled from RN notes): No MS Symptoms (Recalled from RN notes): No Functional Status (Recalled from RN notes): WNL Related Data Previous Rx's ?Medication ?Instructions ?Recorded metoprolol succinate 50 mg 50 mg PO BID #60 tabs 08/01/23 tablet,extended release 24 hr cefdinir 300 mg capsule 300 mg PO BID #20 caps 06/05/24 vitamins no.159-iron 1 tab PO DAILY 30 days #30 tabs 06/05/24 fumarate 28 mg-folic acid 800 mcg tablet ( Vitamin) Allergies Allergy/AdvReac Type Severity Reaction Status Date / Time erythromycin base Allergy Intermediate soa, hives Verified 01/19/24 08:52 (ERYTHROMYCIN BASE) clonidine Allergy Unknown Verified 06/05/24 12:07 allergy reaction Worker's Comp Is this a Worker's Comp case?: No [facility] Disclaimer: The information contained in this section may have been updated after the patient was seen, as this information can be updated by other users. Medical History Muscle cramps Fatigue Abnormal electrocardiogram [ECG] [EKG] HTN (hypertension) History of paroxysmal supraventricular tachycardia Migraine Chiari malformation Headache Transient neurological symptoms Thyromegaly Ganglion cyst of finger of right hand Supraventricular arrhythmia Atypical chest pain Palpitations Chest pain Bipolar disorder SVT (supraventricular tachycardia) Surgical History History of cardiac radiofrequency ablation No significant past surgical history Family History Other No significant family history 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 (Reviewed 12/03/23 @ :47 by Thais Alcantar DO) Smoking Status: Current every day smoker tobacco type: e-cigarettes second hand exposure: No alcohol intake: never substance use type: denies use current occupational status: employed Travel in the last 8 weeks: Inside the [place] household members: family housing: house number of children: 0 current occupation: [employer] current occupational exposures/hazards: No caffeine: Yes ROS Obtained: Yes All systems reviewed & no additional complaints except as documented Constitutional Constitutional: Reports chills and Reports fever(s) Eyes Eyes: Denies eye discharge ENT Ears, Nose, Mouth, and Throat: Reports as per HPI Cardiovascular Cardiovascular: Denies chest pain Respiratory Respiratory: Denies chest congestion and Reports cough Gastrointestinal Gastrointestingal: Reports nausea; Denies abdominal pain, constipation, cramping, diarrhea or vomiting Musculoskeletal Musculoskeletal: Denies arthralgias Integumentary/Breasts Skin/Breast: Denies rash Neurologic Neurologic: Denies paresthesias Physical Exam General General appearance: alert and in no apparent distress Head Head exam: atraumatic, normocephalic and normal inspection Eye Eye exam: Present normal appearance, PERRL and EOMI ENT ENT exam: Present mucous membranes moist and normal external ear exam Expanded ENT Exam TM/Canal exam: Bilateral TM: erythema and bulging Nose exam: Absent sinus tenderness Mouth exam: Present normal external inspection; Absent drooling Teeth exam: Present normal inspection Throat exam: Present tonsillar erythema, tonsillomegaly and tonsillar exudate Neck Neck exam: Present normal inspection, full ROM and trachea midline; Absent tenderness, meningismus or lymphadenopathy Chest Chest inspection: Present normal inspection and symmetric chest wall rise; Absent tenderness Respiratory Respiratory exam: Present normal lung sounds bilaterally; Absent respiratory distress, wheezes, stridor or accessory muscle use Cardiovascular Cardiovascular exam: Present regular rate and normal rhythm; Absent systolic murmur or diastolic murmur Abdominal Exam Abdominal exam: Present soft and normal bowel sounds; Absent distention, tenderness, guarding, rebound or rigidity Extremities Exam Extremities exam: Present normal inspection and normal capillary refill; Absent calf tenderness Back Exam Back exam: Present normal inspection and full ROM; Absent tenderness, CVA tenderness (R) or CVA tenderness (L) Neurological Exam Neurological exam: Present alert, oriented X3 and CN II-XII intact Psychiatric Psychiatric exam: Present normal affect and normal mood Skin Skin exam: Present warm, dry, intact and normal color Medical Decision Making Medical Records Medical records reviewed: No I reviewed the patient's medical records. Screening: Per USPSTF and CDC recommendations, given the prevalence of disease in our region, it is our hospital?s policy to screen for HIV and viral Hepatitis for all patients aged 18 and over and those with ongoing risk factors. Chuck Inquiry Pt receiving controlled substance: No Vital Signs: 06/05/24 12:00 Temperature 98.4 F Temperature Source Oral Pulse Rate [Left Brachial] 70 Respiratory Rate 20 Blood Pressure [Left Arm] 153/83 H Blood Pressure Mean [Left Arm] 106 Blood Pressure Source [Left Arm] Automatic Cuff Blood Pressure Position [Left Arm] Sitting 02 Sat by Pulse Oximetry 98 Oxygen Delivery Method Room Air Lab Data Lab results reviewed: Yes I reviewed the patient's lab results.
[2024-06-05 12:10] LABS: UTC Pregnancy Test, Urine Positive (Negative)
[2024-06-05 12:14] LABS: UTC Strep Screen (Rapid) Positive (Negative)
[2024-06-05 13:11] VITALS: BP 153/83; PULSE 70; RESP 20; TEMP 36.9; O2SAT 98
== END 2024-06-05 13:13 | disposition home or self-care (01) ==
PROVIDERS: Emergency Provider Nurse Practitioner Family; PCP Physician Assistant
DX: J02.0 Streptococcal pharyngitis (principal); R06.02 Shortness of breath; R50.9 Fever, unspecified; R09.81 Nasal congestion; R05.9 Cough, unspecified; J02.9 Acute pharyngitis, unspecified; R07.81 Pleurodynia; Z34.90 Encounter for supervision of normal pregnancy, unspecified, unspecified trimester
CPT/HCPCS: 81025; 87880; 99212; G0381

== ENCOUNTER 2024-06-14 11:07 | Outpatient (CLI) | payer BC, SELFPAY ==
[2024-06-14 12:41] LABS: HCG,Quantitative 3779 mIU/ml (0-5.42)
== END 2024-06-14 23:59 | disposition home or self-care (01) ==
LOC: LAB 11:08
PROVIDERS: PCP Physician Assistant; Visit Provider Obstetrics & Gynecology
DX: Z34.90 Encounter for supervision of normal pregnancy, unspecified, unspecified trimester (principal); Z34.81 Encounter for supervision of other normal pregnancy, first trimester
CPT/HCPCS: 36415; 84702; 87086

== ENCOUNTER 2024-06-16 10:25 | Outpatient (CLI) | payer BC, SELFPAY ==
[2024-06-16 11:28] LABS: HCG,Quantitative 8190 mIU/ml (0-5.42)
[2024-06-17 12:23] LABS: Progesterone 8.3 ng/mL (.)
== END 2024-06-16 23:59 | disposition home or self-care (01) ==
PROVIDERS: PCP Physician Assistant; Visit Provider Obstetrics & Gynecology
DX: Z34.90 Encounter for supervision of normal pregnancy, unspecified, unspecified trimester (principal)
CPT/HCPCS: 36415; 84144; 84702

== ENCOUNTER 2024-06-18 11:39 | Outpatient (CLI) | payer BC, SELFPAY ==
[2024-06-18 14:19] LABS: HCG,Quantitative 17632 mIU/ml (0-5.42)
== END 2024-06-18 23:59 | disposition home or self-care (01) ==
LOC: LAB 11:40
PROVIDERS: PCP Physician Assistant; Visit Provider Obstetrics & Gynecology
DX: Z34.90 Encounter for supervision of normal pregnancy, unspecified, unspecified trimester (principal)
CPT/HCPCS: 36415; 84702

== ENCOUNTER 2024-06-24 13:37 | Outpatient (CLI) | payer BC, SELFPAY ==
--- NOTE | 2024-06-24 13:40 | US_ITS ---
PROCEDURE: US OB <= 14 WEEKS FETUS CLINICAL INDICATION: Dates/viability COMPARISON: No exams were available for comparison FINDINGS: Transvaginal sonographic images of the pelvis were obtained. Her gestational age is unknown. An intrauterine gestational sac is present with a pole with a crown-rump length of 0.42cm This correlates to a gestational age of 6weeks 1day. TIFFANY will be 02/16/2025 heart tones are present with an FHR of 117bpm. Yolk sac is noted. The yolk sac measures 5.5mm. The right ovary is seen and appears normal. There is a follicle measuring 2.6 cm. A corpus luteum is present in the right ovary. The left ovary is seen and appears normal. There is no fluid in the cul-de-sac. IMPRESSION: 1. Viable embryo within the uterine cavity. The embryo measures 6 weeks and 1 day. TIFFANY will be 02/16/2025 based on this ultrasound. 2. Both ovaries are seen and appear normal. There is a 2.6 cm follicle in the right ovary. There is a corpus luteum in the right ovary. 3. No fluid in the cul-de-sac. Dictated by: Oliverio Amanda MD 06/25/2024 08:22 Oliverio Amanda MD in OV 06/25/2024 08:22
== END 2024-06-24 23:59 | disposition home or self-care (01) ==
LOC: RAD 13:38
PROVIDERS: PCP Physician Assistant; Visit Provider Obstetrics & Gynecology
DX: Z34.90 Encounter for supervision of normal pregnancy, unspecified, unspecified trimester (principal)
CPT/HCPCS: 76801

== ENCOUNTER 2024-07-02 10:46 | Outpatient (CLI) | payer BC, SELFPAY | END 2024-07-02 23:59 | disposition home or self-care (01) | LOC: RT 10:47 | PROVIDERS: PCP Physician Assistant; Visit Provider Nurse Practitioner | DX: R00.2 Palpitations (principal) | CPT/HCPCS: 93270 ==

== ENCOUNTER 2024-07-09 12:19 | Outpatient (CLI) | payer BC, SELFPAY ==
[2024-07-09 13:02] LABS: Basophils % 0.2 % (0.1-2.0); Eosinophils % 0.2 % (0.1-12.0); Hematocrit 38.1 % (37.0-47.0); Hemoglobin 13.5 g/dL (12.2-16.2); Lymphocytes # 1.3 K/mm3 (0.7-4.5); Lymphocytes % 15.4 % (10-50); Mean Corpuscular HGB Conc 35.4 g/dL (31.8-35.4); Mean Corpuscular Hemoglobin 30.8 pg (27.0-31.2); Mean Platelet Volume 10.1 fl (7.4-10.4); Monocytes # 0.3 K/mm3 (0.1-1.0); Monocytes % 3.1 % (1.7-9.3); Neutrophils # 7.1 K/mm3 (1.8-7.8); Neutrophils % 80.9 % (37.0-80.0); Platelet Count 281 K/mm3 (142-424); Red Blood Count 4.38 M/mm3 (4.20-5.40); Red Cell Distribution Width 11.8 % (11.5-17.5); White Blood Count 8.7 K/mm3 (4.8-10.8)
[2024-07-09 13:26] LABS: Albumin Level 4.6 g/dl (3.5-5.0); Chloride 101 mmol/L (98-107); Sodium 135 mmol/L (136-145)
[2024-07-09 13:27] LABS: Potassium 3.9 mmoL/L (3.5-5.1)
[2024-07-09 13:29] LABS: Alanine Aminotransferase 15 U/L (12-78); Albumin/Globulin Ratio 1.8 (1.1-1.8); Alkaline Phosphatase 57 U/L (38-126); Anion Gap 15.9 mEq/L (5-15); Aspartate Amino Transferase 20 U/L (14-36); Bilirubin,Total 0.5 mg/dl (0.2-1.3); Blood Urea Nitrogen 7 mg/dl (7-17); Carbon Dioxide 22 mmol/L (22.0-30.0); Estimated Glomerular Filt Rate 153 ml/min (>60); GFR (African American) 185 ML/MIN (>60); Globulin 2.5 g/dL (1.3-3.2); Total Protein,Serum 7.1 g/dl (6.3-8.2)
[2024-07-09 13:30] LABS: Calcium 9.6 mg/dl (8.4-10.2); Glucose 93 mg/dl (74-100)
[2024-07-09 14:10] LABS: HIV Combo NEGATIVE (Negative)
[2024-07-09 15:51] LABS: RPR W/RFX Titers Nonreactive (Nonreactive)
[2024-07-10 05:10] LABS: Hepatitis B Surface Antigen Negative (Negative)
== END 2024-07-09 23:59 | disposition home or self-care (01) ==
LOC: LAB 12:20
PROVIDERS: PCP Physician Assistant; Visit Provider Obstetrics & Gynecology
DX: Z34.91 Encounter for supervision of normal pregnancy, unspecified, first trimester (principal); Z3A.01 Less than 8 weeks gestation of pregnancy
CPT/HCPCS: 36415; 80053; 85025; 86592; 86850; 87340; 87389

== ENCOUNTER 2024-07-11 08:02 | Outpatient (CLI) | payer BC, SELFPAY ==
--- NOTE | 2024-07-11 08:05 | CA_ITS ---
APPROVED REPORT EXAM: Comprehensive 2D, Doppler, and color-flow Echocardiogram Chief Administrative Officer: Bree Hernández CRT Ht: 5 ft 6 in Wt: 185lbs BSA: 1.93 BP: 139/76 mmHg Indications: 7 wks sob, palp, dizziness, murmur, svt, Ablation 2021, echo with negative B/S 2021 B/S not performed d/t early 2D Dimensions LA Volume 44.50 mL LA Volume Index 22.50 mL/m2 (M/F) 16-34 M-Mode Dimensions RVDd 2.34 cm (0.9-2.6) LA Diam 2.91 cm (1.9-4.0) LVDd 4.96 cm (3.5-5.7) LVDs 3.12 cm (3.5-5.7) IVSd 1.25 cm (0.6-1.1) PWd 1.05 cm (0.6-1.1) EF (Teich) 66.80% FS 37.10% EDV (Teich) 116.10 mL TAPSE 1.69 (<1.7) ESV (Teich) 38.50 mL LV Diastology E Decel Time 303 (160-240 msec) E/A Ratio 1.12 MED A' 13.20 cm/s LAT A' 9.40 cm/s Aortic Valve AO Peak GR. 8.20 mmHg Mitral Valve MV A Velocity 71.0 (40-130 cm/s) E/A Ratio 1.12 Pulmonary Valve PV Peak Velocity 102.0 (50-150 cm/s) Tricuspid Valve TR P. Velocity 187.00 cm/s RAP Estimate 10.00 mmHg RVSP 24.00 mmHg Left Ventricle The left ventricle is normal size. The left ventricular systolic function is normal. The left ventricular ejection fraction is within the normal range. There is normal left ventricular wall thickness. There is normal LV segmental wall motion. The left ventricular diastolic function is normal. LVEF is 55%. Right Ventricle The right ventricle is normal size. The right ventricular systolic function is normal. Atria The left atrium size is normal. The right atrium size is normal. There is no Doppler evidence of interatrial shunt. Aortic Valve The aortic valve opens well. There is no aortic valvular stenosis. No aortic regurgitation is present. Mitral Valve The mitral valve is normal in structure. No evidence of mitral valve stenosis. There is no mitral valve regurgitation noted. Tricuspid Valve Tricuspid valve is grossly normal in structure and function. Trace tricuspid regurgitation. There is insufficient TR jet to estimate RVSP. Pulmonic Valve The pulmonary valve is normal in structure. Trace pulmonic regurgitation. Great Vessels The aortic root is normal in size. The ascending aorta is not well-visualized. IVC is normal in size and collapses >50% with inspiration. Pericardium There is no pericardial effusion. Other Information Study Quality: Adequate Conclusion Normal biventricular systolic function. No significant valvular stenosis or regurgitation. Electronically signed by : Anne Yusuf MD 07/16/2024 13:00:41
== END 2024-07-11 23:59 | disposition home or self-care (01) ==
LOC: RT 08:03
PROVIDERS: PCP Physician Assistant; Visit Provider Nurse Practitioner
DX: R94.31 Abnormal electrocardiogram [ECG] [EKG] (principal); R06.00 Dyspnea, unspecified; R07.9 Chest pain, unspecified; I10 Essential (primary) hypertension; Z86.79 Personal history of other diseases of the circulatory system
CPT/HCPCS: 93306

== ENCOUNTER 2024-07-26 17:09 | Outpatient (CLI) | payer BC, SELFPAY | END 2024-07-26 23:59 | disposition home or self-care (01) | LOC: LAB.DROPOF 17:09 | PROVIDERS: PCP Obstetrics & Gynecology; Visit Provider Obstetrics & Gynecology | DX: R39.9 Unspecified symptoms and signs involving the genitourinary system (principal); I10 Essential (primary) hypertension | CPT/HCPCS: 87086 ==

== ENCOUNTER 2024-07-29 10:26 | Outpatient (CLI) | payer BC, SELFPAY ==
[2024-07-29 11:29] LABS: Total Volume,Urine 1500 mL (600-1600)
[2024-07-29 13:44] LABS: Total Protein 24 Hour,Urine 180 mg/24 hr (40-90)
[2024-07-29 17:17] LABS: Uric Acid 3.4 mg/dl (2.5-6.2)
== END 2024-07-29 23:59 | disposition home or self-care (01) ==
LOC: LAB.DROPOF 10:26
PROVIDERS: PCP Physician Assistant; Visit Provider Obstetrics & Gynecology
DX: I10 Essential (primary) hypertension (principal); Z72.0 Tobacco use
CPT/HCPCS: 36415; 84155; 84550

== ENCOUNTER 2024-09-26 08:58 | Outpatient (CLI) | payer BC, SELFPAY ==
--- NOTE | 2024-09-26 08:59 | US_ITS ---
PROCEDURE: US OB /MATERNAL DETAIL CLINICAL INDICATION: 20 week Anatomy Scan -Complete COMPARISON: US US OB <= 14 WEEKS FETUS from 06/24/2024 FINDINGS: Transabdominal sonographic images of the pelvis were obtained. From her established due date she is 19 weeks 4 days. Single viable intrauterine gestation. Breech position. Placenta: Anteriorplacenta grade 1. There is an average amount of fluid. The cervix appears satisfactory. Closed and measuring 4.36 cm in length. Complete survey performed and was unremarkable on the submitted images as in PACS. No discrete anomalies identified on survey imaging by technologist. Active fetus. Three-vessel cord with satisfactory umbilical cord insertion. 4- chamber heart noted. Situs, aortic arch, LVOT, RVOT, three-vessel view appear normal. Survey of brain & ventricles Unremarkable. Cerebellum, thalamus, choroid plexus, cisterna magna appear normal. Face and neck survey unremarkable. Profile, nasion, lips and nose appeared normal. Diaphragm and chest views unremarkable. Abdomen: Both kidneys noted and unremarkable. Stomach and bladder noted and satisfactory. Spine: Survey of the spine satisfactory with no anomalies identified nor imaged. Cervical, thoracic, lower spine appear normal. Both arms and legs noted. Amniotic Fluid: Adequate. MVP 4.13 cm Measurements: Average ultrasound age 20weeks 0 days. Estimated due date by ultrasound age 0802/13/2025. Estimated weight 336g BPD = 19weeks 5days HC = 19weeks 4days AC = 21weeks 1day FL = 19weeks 3days Growth Percentile= 79 Heart Rate = 147bpm Cerebellum = 19weeks 0 days Humerus = 20weeks 1day HC/AC is 1.06 FL/BPD is 0.67 FL/AC is 0.19 IMPRESSION: 1. Viable fetus within the uterine cavity with an anterior placenta grade 1. 2. The fluid is within normal limits with an MVP 4.13 cm. 3. There is a small intracardiac echogenic foci. Suggest repeat scan at 28 weeks. 4. The rest of the anatomical scan appears normal. 5. biometry is consistent with dates. Dictated by: Oliverio Amanda MD 09/26/2024 16:39 Oliverio Amanda MD in OV 09/26/2024 16:39
== END 2024-09-26 23:59 | disposition home or self-care (01) ==
LOC: RAD 08:59
PROVIDERS: PCP Internal Medicine; Visit Provider Obstetrics & Gynecology
DX: Z36.3 Encounter for antenatal screening for malformations (principal); Z3A.19 19 weeks gestation of pregnancy; I10 Essential (primary) hypertension
CPT/HCPCS: 76811

== ENCOUNTER 2024-10-10 18:45 | Outpatient (CLI) | payer BC, SELFPAY ==
[2024-10-10 18:56] VITALS: BMI 31.3
[2024-10-10 19:00] VITALS: BP 155/88; PULSE 89; RESP 18; TEMP 36.6; O2SAT 98
[2024-10-10 19:10] LABS: Microscopic, Urine URINE MICROSCOPIC (MICROSCOPIC)
[2024-10-10 19:15] VITALS: BP 128/78
[2024-10-10 19:17] LABS: Appearance,Urine CLEAR (Clear); Bilirubin,Urine Negative (Negative); Blood, Urine Negative (Negative); Color,Urine YELLOW (Yellow); Glucose,Urine (UA) Negative (Negative); Ketones,Urine Negative (Negative); Leukocyte Esterase,Urine 1+ (Negative); Nitrate,Urine Negative (Negative); Protein,Urine Negative (Negative); Specific Gravity, Urine <= 1.005 (1.005-1.030); Urobilinogen,Urine 0.2 EU/dl (0.2)
[2024-10-10 19:30] VITALS: BP 128/78; PULSE 89; RESP 18; TEMP 36.6; O2SAT 100; BMI 69.0
[2024-10-10] MEDS: ONDANSETRON 4MG/2ML VIAL 4 MG IV (19:39)
[2024-10-10] MEDS: LACTATED RINGERS 1000ML 1,000 ML 999 ML IV (19:39)
[2024-10-10 19:50] VITALS: BP 137/78
[2024-10-10 19:57] LABS: Squamous Epithelial Cell,Urine 20-50 #/hpf (0-5)
[2024-10-10 19:58] LABS: Bacteria,Urine 3+ /lpf
[2024-10-10 20:22] VITALS: BP 133/76
== END 2024-10-10 20:45 | disposition home or self-care (01) ==
LOC: OBOUT 18:48 → OB 18:49
PROVIDERS: PCP Physician Assistant; Visit Provider Nurse Practitioner Obstetrics & Gynecology
DX: O10.912 Unspecified pre-existing hypertension complicating pregnancy, second trimester (principal); Z3A.21 21 weeks gestation of pregnancy; O23.42 Unspecified infection of urinary tract in pregnancy, second trimester; N39.0 Urinary tract infection, site not specified
CPT/HCPCS: 81001; 87086; J2405; J7120

== ENCOUNTER 2024-10-18 09:52 | Outpatient (CLI) | payer BC, SELFPAY ==
[2024-10-18 10:13] VITALS: BP 143/87; PULSE 88; RESP 18; TEMP 37.3; O2SAT 96; BMI 31.9
[2024-10-18 10:35] VITALS: BP 138/75
[2024-10-18 10:44] LABS: Microscopic, Urine URINE MICROSCOPIC (MICROSCOPIC)
[2024-10-18 10:54] LABS: Basophils % 0.1 % (0.1-2.0); Eosinophils # 0.1 Kmm3 (0.0-0.4); Eosinophils % 0.7 % (0.1-12.0); Hematocrit 31.7 % (37.0-47.0); Hemoglobin 11.1 g/dL (12.2-16.2); Lymphocytes # 0.8 K/mm3 (0.7-4.5); Lymphocytes % 10.2 % (10-50); Mean Corpuscular Hemoglobin 31.3 pg (27.0-31.2); Mean Corpuscular Volume 89.3 fl (81-99); Mean Platelet Volume 9.6 fl (7.4-10.4); Monocytes # 0.5 K/mm3 (0.1-1.0); Monocytes % 6.2 % (1.7-9.3); Neutrophils # 6.1 K/mm3 (1.8-7.8); Neutrophils % 82.3 % (37.0-80.0); Nucleated Red Blood Cells # 0 10^3/uL; Nucleated Red Blood Cells % 0 %; Platelet Count 202 K/mm3 (142-424); Red Blood Count 3.55 M/mm3 (4.20-5.40); Red Cell Distribution Width 12.4 % (11.5-17.5); Red Cell Distribution Width-SD 40.4 fL; White Blood Count 7.4 K/mm3 (4.8-10.8)
[2024-10-18 11:02] LABS: Albumin Level 3.7 g/dl (3.5-5.0); Chloride 106 mmol/L (98-107); Potassium 3.7 mmoL/L (3.5-5.1); Sodium 135 mmol/L (136-145)
[2024-10-18 11:04] LABS: Appearance,Urine CLOUDY (Clear); Bilirubin,Urine Negative (Negative); Blood, Urine Negative (Negative); Color,Urine YELLOW (Yellow); Glucose,Urine (UA) Negative (Negative); Ketones,Urine Negative (Negative); Leukocyte Esterase,Urine 3+ (Negative); Nitrate,Urine Negative (Negative); PH,Urine 6.5 (5.0-8.5); Protein,Urine Negative (Negative); Urobilinogen,Urine 0.2 EU/dl (0.2)
[2024-10-18 11:05] LABS: Alanine Aminotransferase 20 U/L (12-78); Albumin/Globulin Ratio 1.2 (1.1-1.8); Alkaline Phosphatase 60 U/L (38-126); Anion Gap 11.7 mEq/L (5-15); Aspartate Amino Transferase 21 U/L (14-36); Bilirubin,Total 0.4 mg/dl (0.2-1.3); Blood Urea Nitrogen 5 mg/dl (7-17); Carbon Dioxide 21 mmol/L (22.0-30.0); Creatinine Clearance Estimated 310 mL/min (50-200); Estimated Glomerular Filt Rate 198 ml/min (>60); GFR (African American) 239 ML/MIN (>60); Total Protein,Serum 6.7 g/dl (6.3-8.2)
[2024-10-18 11:06] LABS: Calcium 8.9 mg/dl (8.4-10.2); Glucose 86 mg/dl (74-100)
[2024-10-18 11:13] LABS: Creatinine,Urine Random 50 mg/dL (Not Estab.)
[2024-10-18 11:15] VITALS: BP 150/88
[2024-10-18 11:21] LABS: Bacteria,Urine 2+ /lpf
[2024-10-18 11:25] LABS: Uric Acid 4.1 mg/dl (2.5-6.2)
[2024-10-18] MEDS: LABETALOL 100MG TABLET 200 MG PO (11:31)
[2024-10-18 12:00] VITALS: BP 145/89
[2024-10-18 12:04] LABS: Fibrinogen 342 mg/dL (229.9-363.5); INR 0.92 (0.9-1.1); Prothrombin Time 10.4 seconds (10.1-12.5)
== END 2024-10-18 12:01 | disposition home or self-care (01) ==
LOC: OBOUT 09:53 → OB 09:54
PROVIDERS: PCP Physician Assistant; Visit Provider Obstetrics & Gynecology
DX: O13.2 Gestational [pregnancy-induced] hypertension without significant proteinuria, second trimester (principal); Z3A.22 22 weeks gestation of pregnancy
CPT/HCPCS: 80053; 81001; 82570; 84156; 84550; 85025; 85384; 85610; 85730; 87086; G0463

== ENCOUNTER 2024-10-18 21:44 | Outpatient (CLI) | payer BC, SELFPAY ==
[2024-10-18] VITALS (7 sets, daily range): BP systolic 118–159; BP diastolic 61–97; PULSE 88–98; RESP 16; TEMP 37.1; O2SAT 98; BMI 31.9
[2024-10-18] MEDS: LABETALOL 100MG TABLET 200 MG PO (22:34)
== END 2024-10-18 23:24 | disposition home or self-care (01) ==
LOC: OBOUT 21:47 → OB 21:47
PROVIDERS: PCP Physician Assistant; Visit Provider Obstetrics & Gynecology
DX: O13.2 Gestational [pregnancy-induced] hypertension without significant proteinuria, second trimester (principal); Z3A.22 22 weeks gestation of pregnancy
CPT/HCPCS: G0463

== ENCOUNTER 2024-10-19 14:07 | Outpatient (CLI) | payer BC, SELFPAY ==
[2024-10-19 19:27] LABS: Total Volume,Urine 1500 mL (600-1600)
[2024-10-19 19:36] LABS: Total Protein 24 Hour,Urine 150 mg/24 hr (40-90)
== END 2024-10-19 23:59 | disposition home or self-care (01) ==
LOC: OBOUT 14:08 → LAB 14:14
PROVIDERS: PCP Physician Assistant; Visit Provider Obstetrics & Gynecology
DX: O16.2 Unspecified maternal hypertension, second trimester (principal); Z3A.22 22 weeks gestation of pregnancy
CPT/HCPCS: 84155

== ENCOUNTER 2024-10-21 12:29 | Outpatient (CLI) | payer BC, SELFPAY ==
[2024-10-21 12:43] VITALS: BMI 31.9
[2024-10-21 13:45] VITALS: BMI 31.9
[2024-10-21 13:46] LABS: Microscopic, Urine URINE MICROSCOPIC (MICROSCOPIC)
[2024-10-21 13:53] LABS: Basophils % 0.1 % (0.1-2.0); Eosinophils # 0.1 Kmm3 (0.0-0.4); Eosinophils % 1.6 % (0.1-12.0); Hematocrit 31.2 % (37.0-47.0); Hemoglobin 10.8 g/dL (12.2-16.2); Lymphocytes # 1.1 K/mm3 (0.7-4.5); Lymphocytes % 13.6 % (10-50); Mean Corpuscular HGB Conc 34.6 g/dL (31.8-35.4); Mean Corpuscular Hemoglobin 31.4 pg (27.0-31.2); Mean Corpuscular Volume 90.7 fl (81-99); Mean Platelet Volume 9.4 fl (7.4-10.4); Monocytes # 0.3 K/mm3 (0.1-1.0); Monocytes % 4.2 % (1.7-9.3); Neutrophils # 6.2 K/mm3 (1.8-7.8); Neutrophils % 79.9 % (37.0-80.0); Nucleated Red Blood Cells # 0 10^3/uL; Nucleated Red Blood Cells % 0 %; Platelet Count 229 K/mm3 (142-424); Red Blood Count 3.44 M/mm3 (4.20-5.40); Red Cell Distribution Width 12.9 % (11.5-17.5); Red Cell Distribution Width-SD 42.1 fL; White Blood Count 7.7 K/mm3 (4.8-10.8)
[2024-10-21 14:03] LABS: Alanine Aminotransferase 17 U/L (12-78); Albumin Level 3.5 g/dl (3.5-5.0); Albumin/Globulin Ratio 1.1 (1.1-1.8); Alkaline Phosphatase 67 U/L (38-126); Anion Gap 13.5 mEq/L (5-15); Aspartate Amino Transferase 24 U/L (14-36); Bilirubin,Total 0.3 mg/dl (0.2-1.3); Blood Urea Nitrogen 4 mg/dl (7-17); Calcium 9.2 mg/dl (8.4-10.2); Carbon Dioxide 21 mmol/L (22.0-30.0); Chloride 105 mmol/L (98-107); Creatinine Clearance Estimated 310 mL/min (50-200); Estimated Glomerular Filt Rate 198 ml/min (>60); GFR (African American) 239 ML/MIN (>60); Globulin 3.2 g/dL (1.3-3.2); Glucose 96 mg/dl (74-100); Potassium 3.5 mmoL/L (3.5-5.1); Sodium 136 mmol/L (136-145); Total Protein,Serum 6.7 g/dl (6.3-8.2)
[2024-10-21 14:23] LABS: Uric Acid 4.4 mg/dl (2.5-6.2)
[2024-10-21 14:29] LABS: Appearance,Urine CLEAR (Clear); Bilirubin,Urine Negative (Negative); Blood, Urine Negative (Negative); Color,Urine YELLOW (Yellow); Glucose,Urine (UA) Negative (Negative); Ketones,Urine Negative (Negative); Leukocyte Esterase,Urine 1+ (Negative); Nitrate,Urine Negative (Negative); PH,Urine 7.5 (5.0-8.5); Protein,Urine Negative (Negative); Urobilinogen,Urine 0.2 EU/dl (0.2)
[2024-10-21 14:30] LABS: Activated Partial Thrombo Time 27.6 seconds (22.8-30.6); Fibrinogen 332 mg/dL (229.9-363.5); INR 0.91 (0.9-1.1); Prothrombin Time 10.3 seconds (10.1-12.5)
[2024-10-21 14:44] LABS: Creatinine,Urine Random 96 mg/dL (Not Estab.)
[2024-10-21 15:20] LABS: Bacteria,Urine 4+ /lpf
[2024-10-21 15:21] LABS: Sperm,Urine OCC /lpf
[2024-10-21 15:22] LABS: Hepatitis C Ab Qual. W/ RFX NEGATIVE (Negative)
[2024-10-22 05:27] LABS: Hepatitis C Antibody Non Reactive (Non Reactive)
[2024-10-22 06:57] LABS: RPR W/RFX Titers Nonreactive (Nonreactive)
== END 2024-10-21 15:16 | disposition home or self-care (01) ==
LOC: OBOUT 12:31 → OB 12:33
PROVIDERS: PCP Physician Assistant; Visit Provider Obstetrics & Gynecology
DX: O26.892 Other specified pregnancy related conditions, second trimester (principal); Z3A.23 23 weeks gestation of pregnancy; M79.605 Pain in left leg; M79.604 Pain in right leg
CPT/HCPCS: 36415; 80053; 81001; 82570; 84156; 84550; 85025; 85384; 85610; 85730; 86592; 86803; 87086; 87380

== ENCOUNTER 2024-10-22 14:59 | Outpatient (CLI) | payer BC, SELFPAY ==
[2024-10-22 15:15] VITALS: BP 145/71
[2024-10-22 15:34] VITALS: BMI 31.9
[2024-10-22 15:38] LABS: Microscopic, Urine URINE MICROSCOPIC (MICROSCOPIC)
[2024-10-22 15:43] LABS: Appearance,Urine CLEAR (Clear); Bilirubin,Urine Negative (Negative); Blood, Urine Negative (Negative); Color,Urine YELLOW (Yellow); Glucose,Urine (UA) Negative (Negative); Ketones,Urine Negative (Negative); Leukocyte Esterase,Urine 1+ (Negative); Nitrate,Urine Negative (Negative); Protein,Urine Negative (Negative); Urobilinogen,Urine 0.2 EU/dl (0.2)
[2024-10-22 15:50] VITALS: RESP 16; TEMP 36.5; O2SAT 100; BMI 31.9
[2024-10-22 15:57] LABS: Bacteria,Urine 2+ /lpf
[2024-10-22 16:15] VITALS: BP 147/89
== END 2024-10-22 16:41 | disposition home or self-care (01) ==
LOC: OBOUT 15:01 → OB 15:01
PROVIDERS: PCP Physician Assistant; Visit Provider Obstetrics & Gynecology
DX: O26.852 Spotting complicating pregnancy, second trimester (principal); Z3A.23 23 weeks gestation of pregnancy; O26.892 Other specified pregnancy related conditions, second trimester
CPT/HCPCS: 81001; 87086; G0463

== ENCOUNTER 2024-10-24 10:15 | Outpatient (CLI) | payer BC, SELFPAY ==
--- NOTE | 2024-10-24 10:37 | US_ITS ---
PROCEDURE: US OB TRANSVAGINAL CLINICAL INDICATION: 10/24/24 for well being COMPARISON: US US OB <= 14 WEEKS FETUS from 06/24/2024 US US OB /MATERNAL DETAIL from 09/26/2024 FINDINGS: Transvaginal sonographic images of the cervix were obtained. IMPRESSION: 1. Transvaginal images of the cervix revealed that the cervix measures 5.1 cm in length. 2. There is no evidence of funneling of the cervix. 3. position is difficult to determine from the images. Dictated by: Oliverio Amanda MD 10/25/2024 07:57 Oliverio Amanda MD in OV 10/25/2024 07:57
--- NOTE | 2024-10-24 11:00 | US_ITS ---
PROCEDURE: US OB FOLLOW UP CLINICAL INDICATION: Growth US with DUSTIN-Evaluate Baby, Check Placenta COMPARISON: US US OB <= 14 WEEKS FETUS from 06/24/2024 US US OB /MATERNAL DETAIL from 09/26/2024 US US OB TRANSVAGINAL from 10/24/2024 FINDINGS: Transabdominal sonographic images of the pelvis were obtained. The following parameters are obtained: From her established due date she is 23weeks 4days Viable fetus in the breech presentation with an anterior placenta grade 1. The cervix measures 5.1 cm from transvaginal images done today. heart rate: 155bpm bpm. BPD: 24weeks 0 days, 56 percentile HC: 24weeks 0 days, 48 percent AC: 24weeks 4days, 73 percentile FL: 23weeks 5days, 40 percentile HC/AC: 1.1 FL/BPD: 0.72 FL/AC: 0.21 Growth percentile: 68 Amniotic fluid: MVP 5.93 cm No obvious anomalies evident. Stomach, bladder, kidneys, three-vessel cord, four chamber heart appear normal. There continues to be a 2.7 mm small echogenic foci in the left ventricle. IMPRESSION: 1. Viable fetus in the breech presentation with an anterior placenta grade 1. 2. The placenta appears intact and there is no evidence of abruption. 3. The fluid is within normal limits with an MVP 5.93 cm. 4. biometry is consistent with the dates. 5. Limited anatomical scan appears normal. 6. There continues to be a small intracardiac echogenic foci within the left ventricle. 7. Suggest repeat scan in 4 weeks. Dictated by: Oliverio Amanda MD 10/25/2024 08:04 Oliverio Amanda MD in OV 10/25/2024 08:04
== END 2024-10-24 23:59 | disposition home or self-care (01) ==
LOC: RAD 10:16
PROVIDERS: PCP Physician Assistant; Visit Provider Obstetrics & Gynecology
DX: O46.90 Antepartum hemorrhage, unspecified, unspecified trimester (principal)
CPT/HCPCS: 76816; 76817

== ENCOUNTER 2024-11-16 19:39 | Outpatient (CLI) | payer BC, SELFPAY ==
[2024-11-16 19:45] VITALS: BP 160/97; PULSE 94; RESP 16; TEMP 36.7; O2SAT 97; BMI 33.2
[2024-11-16 19:50] VITALS: BP 160/97; PULSE 96; RESP 18; TEMP 36.7; O2SAT 97
[2024-11-16 20:05] VITALS: BP 139/72; PULSE 91; RESP 16; O2SAT 97
[2024-11-16 20:05] LABS: Microscopic, Urine URINE MICROSCOPIC (MICROSCOPIC)
[2024-11-16 20:08] LABS: Appearance,Urine CLEAR (Clear); Bilirubin,Urine Negative (Negative); Blood, Urine TRACE-I (Negative); Color,Urine YELLOW (Yellow); Glucose,Urine (UA) Negative (Negative); Ketones,Urine Negative (Negative); Leukocyte Esterase,Urine 2+ (Negative); Nitrate,Urine Negative (Negative); Protein,Urine Negative (Negative); Urobilinogen,Urine 0.2 EU/dl (0.2)
[2024-11-16 20:16] LABS: RBC,Urine Occasional #/hpf (0-3)
[2024-11-16 20:17] LABS: Bacteria,Urine 2+ /lpf
[2024-11-16] MEDS: CEFTRIAXONE SODIUM 1 GM in 0.9 % SODIUM CHLORIDE 50 ML IV (20:44)
[2024-11-16 20:58] LABS: Albumin Level 3.9 g/dl (3.5-5.0); Chloride 107 mmol/L (98-107); Potassium 3.5 mmoL/L (3.5-5.1); Sodium 135 mmol/L (136-145)
[2024-11-16] MEDS: RINGERS SOLUTION,LACTATED 500 ML IV (20:59)
[2024-11-16 21:01] LABS: Alanine Aminotransferase 17 U/L (12-78); Albumin/Globulin Ratio 1.4 (1.1-1.8); Alkaline Phosphatase 67 U/L (38-126); Anion Gap 9.5 mEq/L (5-15); Aspartate Amino Transferase 18 U/L (14-36); Bilirubin,Total 0.4 mg/dl (0.2-1.3); Blood Urea Nitrogen 4 mg/dl (7-17); Calcium 8.9 mg/dl (8.4-10.2); Carbon Dioxide 22 mmol/L (22.0-30.0); Creatinine Clearance Estimated 258 mL/min (50-200); Estimated Glomerular Filt Rate 153 ml/min (>60); GFR (African American) 185 ML/MIN (>60); Globulin 2.8 g/dL (1.3-3.2); Glucose 86 mg/dl (74-100); Magnesium 1.6 mg/dl (1.6-2.3); Total Protein,Serum 6.7 g/dl (6.3-8.2)
== END 2024-11-16 21:46 | disposition home or self-care (01) ==
LOC: OBOUT 19:41 → OB 19:42
PROVIDERS: PCP Physician Assistant; Visit Provider Obstetrics & Gynecology
DX: O13.2 Gestational [pregnancy-induced] hypertension without significant proteinuria, second trimester (principal); Z3A.26 26 weeks gestation of pregnancy
CPT/HCPCS: 80053; 81001; 83735; 87086; G0463; J0696; J7120

== ENCOUNTER 2024-11-20 13:11 | Outpatient (CLI) | payer BC, SELFPAY ==
[2024-11-20 14:58] LABS: Basophils % 0.1 % (0.1-2.0); Eosinophils % 0.2 % (0.1-12.0); Hematocrit 33.1 % (37.0-47.0); Hemoglobin 11.2 g/dL (12.2-16.2); Immature Granulocytes # 0.07 10^3uL; Immature Granulocytes % 0.7 %; Lymphocytes % 9.6 % (10-50); Mean Corpuscular HGB Conc 33.8 g/dL (31.8-35.4); Mean Corpuscular Hemoglobin 30.9 pg (27.0-31.2); Mean Corpuscular Volume 91.4 fl (81-99); Monocytes # 0.5 K/mm3 (0.1-1.0); Monocytes % 4.7 % (1.7-9.3); Neutrophils # 8.7 K/mm3 (1.8-7.8); Neutrophils % 84.7 % (37.0-80.0); Nucleated Red Blood Cells # 0 10^3/uL; Nucleated Red Blood Cells % 0 %; Platelet Count 250 K/mm3 (142-424); Red Blood Count 3.62 M/mm3 (4.20-5.40); Red Cell Distribution Width 12.8 % (11.5-17.5); Red Cell Distribution Width-SD 41.9 fL; White Blood Count 10.3 K/mm3 (4.8-10.8)
[2024-11-20 15:29] LABS: Glucose 1 Hour 114 mg/dL (74-100)
[2024-11-21 10:04] LABS: RPR W/RFX Titers Nonreactive (Nonreactive)
== END 2024-11-20 23:59 | disposition home or self-care (01) ==
LOC: LAB 13:12
PROVIDERS: PCP Physician Assistant; Visit Provider Obstetrics & Gynecology
DX: Z34.82 Encounter for supervision of other normal pregnancy, second trimester (principal); Z3A.27 27 weeks gestation of pregnancy
CPT/HCPCS: 36415; 82947; 85025; 86592

== ENCOUNTER 2024-11-21 07:55 | Outpatient (CLI) | payer BC, SELFPAY ==
--- NOTE | 2024-11-21 08:00 | US_ITS ---
PROCEDURE: US OB FOLLOW UP CLINICAL INDICATION: Chronic Hypertension during prenancy COMPARISON: US US OB <= 14 WEEKS FETUS from 06/24/2024 US US OB /MATERNAL DETAIL from 09/26/2024 US US OB FOLLOW UP from 10/24/2024 US US OB TRANSVAGINAL from 10/24/2024 FINDINGS: Transabdominal sonographic images of the pelvis were obtained. The following parameters are obtained: From her established due date she is 27weeks 4days Viable fetus in the cephalic presentation with an anterior placenta grade 1-2. The cervix measures 3.11 cm heart rate: 149bpm bpm. Average ultrasound age 28 weeks 3 days Estimated weight 1190 grams, 2 lb 10 oz BPD: 28weeks 6days, 76 percentile HC: 28weeks 3days, 46 percentile AC: 28weeks 2days, 60 percentile FL: 28weeks 1day, 52 percentile HC/AC: 1.09 FL/BPD: 0.74 FL/AC: 0.22 Growth percentile: 63 Amniotic fluid: MVP 4.27 cm No obvious anomalies evident. profile seen, stomach, bladder, kidneys, three-vessel cord, four chamber heart appear normal. The previously described intracardiac echogenic foci was not seen today. IMPRESSION: 1. Viable fetus in the cephalic presentation with an anterior placenta grade 1-2. 2. The fluid is within normal limits with an MVP 4.27 cm. 3. There has been good interval growth with the fetus currently 63rd percentile. 4. Limited anatomical scan appears normal. 5. The previously described intracardiac echogenic foci was not seen today. Dictated by: Oliverio Amanda MD 11/21/2024 18:45 Oliverio Amanda MD in OV 11/21/2024 18:45
== END 2024-11-21 23:59 | disposition home or self-care (01) ==
LOC: RAD 07:56
PROVIDERS: PCP Physician Assistant; Visit Provider Obstetrics & Gynecology
DX: O14.92 Unspecified pre-eclampsia, second trimester (principal); O10.912 Unspecified pre-existing hypertension complicating pregnancy, second trimester; Z3A.27 27 weeks gestation of pregnancy
CPT/HCPCS: 76816

== ENCOUNTER 2024-11-29 09:07 | Outpatient (CLI) | payer BC, SELFPAY ==
[2024-11-29 09:22] LABS: Basophils % 0.1 % (0.1-2.0); Eosinophils % 0.3 % (0.1-12.0); Hematocrit 30.6 % (37.0-47.0); Hemoglobin 10.7 g/dL (12.2-16.2); Immature Granulocytes # 0.06 10^3uL; Immature Granulocytes % 0.7 %; Lymphocytes # 0.9 K/mm3 (0.7-4.5); Lymphocytes % 10.7 % (10-50); Mean Corpuscular Hemoglobin 31.5 pg (27.0-31.2); Mean Platelet Volume 9.5 fl (7.4-10.4); Monocytes # 0.3 K/mm3 (0.1-1.0); Monocytes % 3.5 % (1.7-9.3); Neutrophils # 7.4 K/mm3 (1.8-7.8); Neutrophils % 84.7 % (37.0-80.0); Nucleated Red Blood Cells # 0 10^3/uL; Nucleated Red Blood Cells % 0 %; Platelet Count 234 K/mm3 (142-424); Red Cell Distribution Width 12.6 % (11.5-17.5); Red Cell Distribution Width-SD 41.1 fL; White Blood Count 8.8 K/mm3 (4.8-10.8)
[2024-11-29 09:32] LABS: Creatinine,Urine Random 107 mg/dL (Not Estab.)
[2024-11-29 10:20] LABS: Albumin Level 3.7 g/dl (3.5-5.0); Chloride 106 mmol/L (98-107); Potassium 3.7 mmoL/L (3.5-5.1); Sodium 136 mmol/L (136-145)
[2024-11-29 10:23] LABS: Alanine Aminotransferase 15 U/L (12-78); Albumin/Globulin Ratio 1.5 (1.1-1.8); Alkaline Phosphatase 70 U/L (38-126); Anion Gap 9.7 mEq/L (5-15); Aspartate Amino Transferase 20 U/L (14-36); Bilirubin,Total 0.2 mg/dl (0.2-1.3); Blood Urea Nitrogen 5 mg/dl (7-17); Calcium 9.1 mg/dl (8.4-10.2); Carbon Dioxide 24 mmol/L (22.0-30.0); Estimated Glomerular Filt Rate 198 ml/min (>60); GFR (African American) 239 ML/MIN (>60); Globulin 2.4 g/dL (1.3-3.2); Glucose 124 mg/dl (74-100); Total Protein,Serum 6.1 g/dl (6.3-8.2)
[2024-11-29 11:05] LABS: Uric Acid 3.7 mg/dl (2.5-6.2)
== END 2024-11-29 23:59 | disposition home or self-care (01) ==
LOC: LAB 09:07
PROVIDERS: PCP Physician Assistant; Visit Provider Obstetrics & Gynecology
DX: I10 Essential (primary) hypertension (principal)
CPT/HCPCS: 36415; 80053; 82570; 84156; 84550; 85025

== ENCOUNTER 2024-11-30 20:01 | Outpatient (CLI) | payer BC, SELFPAY ==
[2024-11-30] VITALS (12 sets, daily range): BP systolic 130–161; BP diastolic 70–96; PULSE 80–100; RESP 18; TEMP 36.9; O2SAT 97; BMI 33.0; BMI 33.2
--- NOTE | 2024-11-30 20:07 | ECG_ITS ---
APPROVED REPORT Exam: Resting ECG HR:94 bpm ECG Measurements Heart Rate 94 AXES VA 161 P 12 QRSd 85 QRS 0 QT 351 T 11 QTc 403 Conclusion SINUS RHYTHM LOW QRS VOLTAGE IN PRECORDIAL LEADS [QRS DEFLECTION < 1.0 mV IN CHEST LEADS] PATTERN CONSISTENT WITH PULMONARY DISEASE POSSIBLE RIGHT VENTRICULAR CONDUCTION DELAY [RSR (QR) IN V1/V2] ABNORMAL ECG UNCONFIRMED REPORT Electronically signed by : Jarocho Goel MD 12/02/2024 09:20:09
[2024-11-30 20:21] LABS: Microscopic, Urine URINE MICROSCOPIC (MICROSCOPIC)
[2024-11-30 20:30] LABS: Appearance,Urine CLEAR (Clear); Bilirubin,Urine Negative (Negative); Blood, Urine Negative (Negative); Color,Urine YELLOW (Yellow); Glucose,Urine (UA) Negative (Negative); Ketones,Urine TRACE (Negative); Leukocyte Esterase,Urine TRACE (Negative); Nitrate,Urine Negative (Negative); Protein,Urine Negative (Negative); Specific Gravity, Urine 1.015 (1.005-1.030); Urobilinogen,Urine 0.2 EU/dl (0.2)
[2024-11-30 20:45] LABS: Bacteria,Urine 1+ /lpf
[2024-11-30 22:30] LABS: Basophils % 0.2 % (0.1-2.0); Eosinophils # 0.1 Kmm3 (0.0-0.4); Eosinophils % 0.6 % (0.1-12.0); Hematocrit 33.4 % (37.0-47.0); Hemoglobin 11.5 g/dL (12.2-16.2); Immature Granulocytes # 0.07 10^3uL; Immature Granulocytes % 0.7 %; Lymphocytes # 1.6 K/mm3 (0.7-4.5); Lymphocytes % 15.3 % (10-50); Mean Corpuscular HGB Conc 34.4 g/dL (31.8-35.4); Mean Corpuscular Hemoglobin 30.9 pg (27.0-31.2); Mean Corpuscular Volume 89.8 fl (81-99); Mean Platelet Volume 9.9 fl (7.4-10.4); Monocytes # 0.5 K/mm3 (0.1-1.0); Monocytes % 4.8 % (1.7-9.3); Neutrophils # 8.4 K/mm3 (1.8-7.8); Neutrophils % 78.4 % (37.0-80.0); Nucleated Red Blood Cells # 0 10^3/uL; Nucleated Red Blood Cells % 0 %; Platelet Count 279 K/mm3 (142-424); Red Blood Count 3.72 M/mm3 (4.20-5.40); Red Cell Distribution Width 12.6 % (11.5-17.5); Red Cell Distribution Width-SD 40.9 fL; White Blood Count 10.7 K/mm3 (4.8-10.8)
[2024-11-30 22:33] LABS: Albumin Level 3.8 g/dl (3.5-5.0); Chloride 108 mmol/L (98-107); Sodium 136 mmol/L (136-145)
[2024-11-30 22:34] LABS: Potassium 3.8 mmoL/L (3.5-5.1)
[2024-11-30 22:36] LABS: Alanine Aminotransferase 16 U/L (12-78); Albumin/Globulin Ratio 1.2 (1.1-1.8); Alkaline Phosphatase 80 U/L (38-126); Anion Gap 8.8 mEq/L (5-15); Aspartate Amino Transferase 25 U/L (14-36); Bilirubin,Total 0.2 mg/dl (0.2-1.3); Blood Urea Nitrogen 7 mg/dl (7-17); Carbon Dioxide 23 mmol/L (22.0-30.0); Creatinine Clearance Estimated 258 mL/min (50-200); Estimated Glomerular Filt Rate 153 ml/min (>60); GFR (African American) 185 ML/MIN (>60); Globulin 3.1 g/dL (1.3-3.2); Total Protein,Serum 6.9 g/dl (6.3-8.2)
[2024-11-30 22:37] LABS: Calcium 9.4 mg/dl (8.4-10.2); Glucose 106 mg/dl (74-100)
[2024-11-30] MEDS: ACETAMINOPHEN 500MG TAB 1000 MG PO (23:28)
[2024-11-30 23:41] LABS: Creatinine,Urine Random 102 mg/dL (Not Estab.)
[2024-12-01 22:26] LABS: Total Volume,Urine 2500 mL (600-1600)
[2024-12-01 22:33] LABS: Total Protein 24 Hour,Urine 300 mg/24 hr (40-90)
== END 2024-12-01 | disposition home or self-care (01) ==
LOC: OBOUT 20:02 → OB 20:04
PROVIDERS: PCP Physician Assistant; Visit Provider Obstetrics & Gynecology
DX: Z34.93 Encounter for supervision of normal pregnancy, unspecified, third trimester (principal); R94.31 Abnormal electrocardiogram [ECG] [EKG]; Z3A.28 28 weeks gestation of pregnancy
CPT/HCPCS: 59025; 80053; 81001; 82570; 84155; 84156; 84550; 85025; 93005; 99212; G0463

== ENCOUNTER 2024-12-01 23:34 | Observation (INO) | payer BC, SELFPAY ==
[2024-12-01] VITALS (7 sets, daily range): BP systolic 121–149; BP diastolic 75–87; PULSE 89–94; RESP 16–18; TEMP 36.9; O2SAT 96; BMI 33.0
[2024-12-01] MEDS: LACTATED RINGERS 1000ML 1,000 ML 999 ML IV (22:14)
[2024-12-02] MEDS: LABETALOL 100MG TABLET 200 MG PO (04:10)
[2024-12-02 09:28] VITALS: BP 136/80; PULSE 80; RESP 16; TEMP 37.1; O2SAT 99
--- NOTE | 2024-12-02 09:57 | P.HPDS_ITS ---
General Admission date:: 12/01/24 Discharge date: 12/02/24 *Admission Date: 12/01/24 *Chief complaint: Increased blood pressure, *History of present illness: She is a 24-year-old 1 para 0 at 28 weeks gestational age. She came in feeling like her blood pressure was increased. He has been taking labetalol 200 mg 3 times daily. Her blood pressure was slightly elevated on admission. She was also having a few small variable decelerations. As result of that we elected to observe her overnight. [facility] Disclaimer: The information contained in this section may have been updated after the patient was seen, as this information can be updated by other users. Medical History Encounter for related examination in second trimester Muscle cramps Fatigue Abnormal electrocardiogram [ECG] [EKG] HTN (hypertension) History of paroxysmal supraventricular tachycardia Migraine Chiari malformation Headache Transient neurological symptoms Thyromegaly Ganglion cyst of finger of right hand Supraventricular arrhythmia Atypical chest pain Palpitations Chest pain Bipolar disorder SVT (supraventricular tachycardia) Surgical History History of cardiac radiofrequency ablation Family History No significant family history 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 Smoking Status: Current every day smoker tobacco type: e-cigarettes second hand exposure: No alcohol intake: never substance use type: denies use current occupational status: employed Travel in the last 8 weeks?: None household members: family housing: house number of children: 0 current occupation: [employer] current occupational exposures/hazards: No caffeine: Yes Other Medical History Have you received the Flu Vaccine for this season: Yes Have you received the Pneumonia Vaccine: No Review of Systems Review of Systems Review of systems:: pertinent systems reviewed and negative unless documented below Exam Data for Last 24 hours Vital signs and Labs for Last 24 Hours: Temp Pulse Resp BP Pulse Ox O2 Del Method 98.8 F 80 16 136/80 99 Room Air 12/02/24 09:28 12/02/24 09:28 12/02/24 09:28 12/02/24 09:28 12/02/24 09:28 12/02/24 09:28 I & O for Last 24 hours: Intake & Output 11/29/24 11/30/24 12/01/24 12/02/24 11:59 11:59 11:59 11:59 Weight 205 lb Constitutional Constitutional: no acute distress *Routine HEENT Exam Head: Present normocephalic Eye: Present EOMI and PERRL ENT: Present mucous membranes moist *Routine Neck Exam Neck: Present supple; Absent lymphadenopathy *Routine Respiratory Exam Respiratory: Present CTA bilaterally *Routine Cardiovascular Exam Cardiovascular: Present RRR *Routine Abdominal Exam Abdominal: Present soft and normoactive bowel sounds; Absent tenderness *Routine Rectal Exam Rectal:: deferred *Routine Genitalia Exam Genitalia:: deferred *Routine Extremities Exam Extremities: Absent cyanosis, clubbing or edema *Routine Skin Exam Skin: Present warm; Absent rash *Routine Neurological Exam Neurological: Present alert and oriented X3 Meds Home Medications and Allergies Home Medications ?Medication ?Instructions ?Recorded ?Confirmed ?Type vitamins no.159-iron 1 tab PO DAILY 30 days # 30 tabs 06/05/24 11/29/24 Rx fumarate 28 mg-folic acid 800 mcg tablet ( Vitamin) magnesium oxide 400 mg PO TID #90 caps 08/2311/29/24 Rx nystatin 100,000 unit/gram topical 1 applic topical DA SHEA #60 grams 08/23/24 11/29/24 Rx powder ondansetron 4 mg disintegrating 4 mg PO Q6H PRN nausea and 10/11/24 11/29/24 Rx tablet vomiting #30 tabs albuterol sulfate 90 mcg/actuation 2 puff inhalation Q 6H PRN SOB #8.5 10/31/24 11/29/24 Rx aerosol inhaler grams labetalol 200 mg tablet 200 mg PO TID #90 tabs 11/0611/29/24 Rx nifedipine 30 mg tablet,extended 30 mg PO DAILY #30 ta bs 11/29/24 11/29/24 Rx release New Prescriptions to Start Prescriptions: Allergies Allergy/AdvReac Type Severity Reaction Status Date / Time erythromycin base Allergy Intermediate soa, hives Verified 11/29/24 08:48 (ERYTHROMYCIN BASE) clonidine Allergy Unknown Verified 11/29/24 08:48 allergy reaction Hospital Course Hospital Course Hospital Course: She was admitted for overnight observation. She had a few variables but these have now completely settled. Her nonstress test is reactive. She has been taking labetalol 200 mg 3 times daily and since her blood pressure was elevated despite this dose we elected to add Prometrium 30 mg daily. Since that time her blood pressure has stabilized at 136/80. She feels well. She denies any headache, scotomata or epigastric pain. Baby is active. Nonstress test is reactive today. She will be discharged home to follow-up later this week with Dr. Smiley. She will continue with her vitamins and iron. She will continue with her antihypertensives. She will prescription for nifedipine 30 mg XL to take daily. Her condition on discharge is stable and improved. DS: Diagnosis Discharge Diagnosis (1) 28 weeks gestation of : Status: Acute Code(s): Z3A.28 - 28 weeks gestation of (2) Chronic hypertension affecting : Status: Acute Code(s): O10.919 - Unspecified pre-existing hypertension complicating , unspecified trimester (3) Non-reassuring heart rate or rhythm affecting management of mother: Status: Acute Code(s): O36.8390 - Maternal care for abnormalities of the heart rate or rhythm, unspecified trimester, not applicable or unspecified Discharge Plan Disposition Patient Disposition: Home, Self-Care Follow up Plan Follow up with: Demetra Smiley DO [Staff Physician, [employer]PERATOR [employer]] - 12/05/24 3:00 pm Prescriptions/Medication Reconciliation: Continued magnesium oxide 400 mg magnesium capsule 400 mg PO TID Qty: 90 2RF nystatin 100,000 unit/gram powder 1 applic topical DAILY Qty: 60 0RF albuterol sulfate 90 mcg/actuation HFA aerosol inhaler 2 puff inhalation Q6H PRN (Reason: SOB) Qty: 8.5 0RF nifedipine 30 mg tablet extended release 30 mg PO DAILY Qty: 30 2RF ondansetron 4 mg tablet,disintegrating 4 mg PO Q6H PRN (Reason: nausea and vomiting) Qty: 30 2RF labetalol 200 mg tablet 200 mg PO TID Qty: 90 2RF Vitamin 28 mg iron- 800 mcg tablet 1 tab PO DAILY 30 Days Qty: 30 5RF Problem Reconciliation Problems Reviewed?: Yes Patient Discharge Instructions ACTIVITY: Continue current activity DIET: continue same diet Print Language: Latvian Providers Primary Care Provider: Destiny Seymour Admparish Provider: Demetra Smiley Attending Provider: Demetra Smiley
== END 2024-12-02 10:39 | disposition home or self-care (01) ==
LOC: OBOUT 23:35 → OB 23:35
PROVIDERS: Admitting Provider Obstetrics & Gynecology; PCP Physician Assistant; Visit Provider Obstetrics & Gynecology
DX: O10.913 Unspecified pre-existing hypertension complicating pregnancy, third trimester (principal); O36.8330 Maternal care for abnormalities of the fetal heart rate or rhythm, third trimester, not applicable or unspecified; O99.333 Smoking (tobacco) complicating pregnancy, third trimester; F17.290 Nicotine dependence, other tobacco product, uncomplicated; Z3A.28 28 weeks gestation of pregnancy; Z88.1 Allergy status to other antibiotic agents; Z88.8 Allergy status to other drugs, medicaments and biological substances; Z79.899 Other long term (current) drug therapy
CPT/HCPCS: 59025; 96360; 99212; G0378; G0463; J7120

== ENCOUNTER 2024-12-04 19:01 | Outpatient (CLI) | payer BC, SELFPAY ==
[2024-12-04 19:20] VITALS: BP 146/83; PULSE 80; RESP 18; TEMP 36.8; O2SAT 98; BMI 33.2
[2024-12-04 19:35] VITALS: BP 128/83
[2024-12-04 19:50] VITALS: BP 134/83
[2024-12-04 20:05] VITALS: BP 137/77
== END 2024-12-04 20:20 | disposition home or self-care (01) ==
LOC: OBOUT 19:02 → OB 19:05
PROVIDERS: PCP Physician Assistant; Visit Provider Internal Medicine Cardiovascular Disease
DX: O26.893 Other specified pregnancy related conditions, third trimester (principal); R03.0 Elevated blood-pressure reading, without diagnosis of hypertension; Z3A.29 29 weeks gestation of pregnancy
CPT/HCPCS: 59025; 99212; G0463

== ENCOUNTER 2024-12-10 13:27 | Outpatient (CLI) | payer BC, SELFPAY ==
--- OUTSIDE RECORDS SUMMARY | 2024-02-08 06:45 | XMS_ITS ---
Author Organization [facility] Address [address] [place] [phone] Care Team Providers Care Audio Visual Aide Name Role Phone Destiny Seymour Unavailable [phone] Allergies Allergen (clinical drug ingredient) Drug/Non Drug Allergy documented on EMR Reaction Allergy Type Onset Date Status erythromycin Erythromycin Unknown Drug Allergy A ctive Reason For Referral Diagnosis 1 Rheumatoid arthritis , involving unspecified site, unspecified whether rheumatoid factor present (M06.9) Referral Organization [facility] Referring Provider First Name Destiny Referring Provider Last Name Dawn Referring Provider Speciality Physician Tier Truck Driver Referred Provider Rheumatology, . Referred Provider Specialty Rheumatology General Notes Destiny Seymour 2023 11:16:04 AM > PT needs an appt with Pepper Bonilla Brynn 02/12/2024 11:44:56 AM > sent referral to Dr. Jacobs via [facility] website Referral Priority Routine REASON [...] needed Orally Once a day, prn Active Xxjbpnubxi-GDIP-Dktrphoj 50-325-40 MG 1 tablet as needed Orally [...] Problem Status W/U Status Risk Notes Problem [id number] Gastroesophageal reflux disease, unspecified whether esophagitis present (K21.9) Active confirmed Problem 32308512 Rheumatoid arthritis, involving unspecified site, unspecified whether rheumatoid factor present (M06.9) Active confirmed Vital Signs Blood pressure systolic 140 mm Hg 02/08/20 24 Blood pressure diastolic 90 mm Hg 024 Heart Rate 69 /min 02/08/2024 Height 66 in 02/08/2024 Weight 191.2 lbs 02/08/2024 BMI 30.86 kg/m2 02/08/2024 Encounters Encounter Location Date Provider Diagnosis [facility] [address] [facility] [address] [place], [place] [id number] 02/08/2024 Destiny Seymour Gastroesophageal ref lux disease, [...] Notes * TANK PHILLIPOB:2000 (24 yo F)Acc No.[id number]:02/08/2024 Progress Notes Patient: FILI MONAHAN Provider: ETHEL Valentin :2000 A ge:23 Y S ex:Female Date:02/08/2024 Phone: Address:[address] [place] [address] , [place], [id number] Subjective: * Chief Complaints: * 1 . follow up ER, gerd. * HPI: G astroenterology: The pt is here for a follow up on an [facility] ER visit due to shortness of breath [...] the morning Orally once daily , Not-Taking Tzzoulrvsl-GNJW-Llrcnvhz 50-325-40 MG Tablet 1 tablet as needed [...] rn * Billing Information: * Visit Code: 84280 Office Visit, Est Pt., Level 4. * Procedure Codes: * Electronic signature of ETHEL Edwards on 12/10/2024 at 01:39 PM EDT Sign off status: Pending * Provider: ETHEL Valentin Date: 0 02/08/2024 Generated for Melisa gonzalez/Anel/eTransmitting on: 0 12/10/2024 01:39 PM EDT History and Physical Notes * [...]
--- OUTSIDE RECORDS SUMMARY | 2024-04-24 07:30 | XMS_ITS ---
Author Organization Bradley Address [address] [facility] [address] [phone] Care Team Providers Care Test Architect Name Role Phone Destiny Seymour Unavailable [phone] Allergies Allergen (clinical drug ingredient) Drug/Non Drug [...] Last Name Dawn Referring Provider Speciality Physician Distribution Lead Referred Provider Rheumatology, . Referred Provider Specialty [...] Problem Status W/U Status Risk Notes Problem [id number] Rheumatoid arthritis with positive rheumatoid factor, involving unspecified site (M05.9) Active confirmed Vital Signs Blood pressure systolic 134 mm Hg 04/24/20 24 Blood pressure diastolic 100 mm Hg 024 Heart Rate 85 /min 04/24/2024 Height 66 in 04/24/2024 Weight 187.0 lbs 04/24/2024 BMI 30.18 kg/m2 04/24/2024 Encounters Encounter Location Date Provider Diagnosis [facility] [address] [place], [place] [id number] 04/24/2024 Destiny Seymour Strep pharyngitis J0 2.0 [...] Notes * TANK ROSENOB:2000 (24 yo F)Acc No.[id number]:04/24/2024 Progress Notes Patient: FILI MONAHAN Provider: ETHEL Valentin :2000 A ge:23 Y S ex:Female Date:04/24/2024 Phone: Address:[address] [place] [address] Dr Brad singer [id number] Subjective: * Chief Complaints: * 1 . [...] the morning Orally once daily , Discontinued Qtokuzwqhi-EJQX-Zdrkapsx 50-325-40 MG Tablet 1 tablet as needed [...] rn * Billing Information: * Visit Code: 97047 Office Visit, Est Pt., Level 3. * Procedure Codes: 46539 STREP A ASSAY W/OPTIC. Modifiers: QW * Electronic signature of ETHEL Edwards on 12/10/2024 at 01:39 PM EDT Sign off status: Pending * Provider: ETHEL Valentin Date: 1 Generated for Leonori lisa/Fajaseg/eTransmitting on: 0 12/10/2024 01:39 PM EDT History [...]
--- OUTSIDE RECORDS SUMMARY | 2024-06-14 09:15 | XMS_ITS ---
Author Organization [place] Address 1210 [facility] [address] [place] [phone] Care Team Providers Care Mattress Spring Encaser Name Role Phone Dawn Destiny Unavailable [phone] Allergies Allergen (clinical drug ingredient) Drug/Non Drug [...] Encounter Location Date Provider Diagnosis Nikolas [facility] [address] [place] [phone] 06/14/2024 Destiny Seymour Plan Of Treatment No Information Progress Notes * TANK PHILLIPOB:2000 (24 yo F)Acc No.[id number]:06/14/2024 Progress Notes Patient: FLII MONAHAN Provider: ETHEL Valentin :2000 A ge:24 Y S ex:Female Date:06/14/2024 Phone: Address:[address] [place] [address] [id number] Subjective: * Chief Complaints: * 1 . [...] 08/15/2023 Generated for Melisa gonzalez/Anel/Misbahitting on: 0 12/10/2024 01:39 PM EDT History and Physical Notes * HPI (History of Present Illness) Category Sub-Category Detail Notes Category Not es HPI Patient is here today for Pt is here toda y for a check up
--- NOTE | 2024-12-10 13:30 | US_ITS ---
PROCEDURE: US OB BIOPHYSICAL PROFILE CLINICAL INDICATION: needs for early Preeclampsia COMPARISON: US US OB <= 14 WEEKS FETUS from 06/24/2024 US US OB /MATERNAL DETAIL from 09/26/2024 US OB FOLLOW UP from 10/24/2024 US OB TRANSVAGINAL from 10/24/2024 US OB FOLLOW UP from 11/21/2024 FINDINGS: Transabdominal sonographic images of the uterus were obtained. From her established due date she is 30weeks 2days. The following parameters are obtained: Viable Fetus in the BREECH presentation with an anterior placenta grade 2. The cervix measures 3.73 cm Measurements: heart Rate = 142bpm Amniotic fluid index: 14.39cm, MVP 4.56 cm Qualitative AFV:2 Breathing movements: 2 Gross Body Movements: 2 Tone: 2 Biophysical profile score: 8 No obvious anomalies evident.Kidneys, profile, stomach, bladder, four-chamber heart, three-vessel cord appear normal. IMPRESSION: 1. Viable fetus in the BREECH presentation with an anterior placenta grade 2. 2. The fluid is within normal limits with an amniotic fluid index 14.39 cm, MVP 4.56 cm. 3. Biophysical profile is 8/8 with good breathing movement and movement seen. 4. Limited anatomical scan appears normal. Dictated by: Oliverio Amanda MD 12/10/2024 14:23 Oliverio Amanda MD in OV 12/10/2024 14:23
--- OUTSIDE RECORDS SUMMARY | 2024-12-10 13:39 | XMS_ITS | Patient Health Record ---
Author Organization [facility] Address [address] [place] [id number] Care Team Providers Care Hot Roll Inspector Name Role Phone Destiny Seymour Unavailable [phone] Allergies Allergen (clinical drug ingredient) Drug/Non Drug Allergy documented on EMR Reaction Allergy Type Onset Date Status erythromycin Erythromycin Unknown Drug Allergy A ctive Results Component Value Reference Range Notes Rapid Strep- Inhouse Reviewed date:04/25/2024 03:41:35 PM Interpretation: Performing Lab: Notes/Report: strep test Pos Reason For Referral Diagnosis 1 Rheumatoid arthritis , involving unspecified site, unspecified whether rheumatoid factor present (M06.9) Referral Organization [facility] Referring Provider First Name Destiny Referring Provider Last Name Dawn Referring Provider Speciality Physician Seed [employer] Manager Production Referred Provider Rheumatology, . Referred Provider Specialty Rheumatology General Notes Destiny Seymour 2023 11:16:04 AM > PT needs an appt with Pepper Bonilla Brynn 02/12/2024 11:44:56 AM > sent referral to Dr. Jacobs via [facility] website Referral Priority Routine Diagnosis 1 Rheumatoid arthritis with positive rheumatoid factor, involving unspecified site (M05.9) Referral Organization [facility] Referring Provider First Name Destiny Referring Provider Last Name Dawn Referring Provider Speciality Physician Seed [employer] Manager Production Referred Provider Rheumatology, . Referred Provider Specialty Rheumatology General Notes Destiny Seymour 04/03 12:23:11 PM > Pt needs to see Pepper Bonilla Brynn 04/24/2024 12:51:53 PM > faxed referral to 's office Referral Priority Routine Medications Medication SIG (Take, Route, Frequency, Duration) Notes Start Date End Date Status Cefdinir 300 MG 1 cap(s) Orally Two times a day for 10 day(s) 04/24/2024 Active Omeprazole 40 MG 1 capsule 30 minutes [...] Problem Status W/U Status Risk Notes Problem 9749736 SVT (supraventricular tachycardia) (I47.1) Active confirmed Problem 49988170 Paresthesia (R20.2) Active confirmed Problem 305876060 Depression with anxiety (F41.8) Active confirmed Problem 506511030 Thyroid nodule (E04.1) Active confirmed Problem 393492191 Panic attacks (F41.0) Active confirmed Problem 631920393 Intractable migraine with aura without status migrainosus (G43.119) Active confirmed Problem 120369933 Cardiac arrhythm ia, unspecified cardiac arrhythmia type (I49.9) Active confirmed Problem 228506106 Intractable migraine without status migrainosus, unspecified migraine type (G43.919) Active confirmed Problem 0145714 Thyromegaly (E01.0) Active confirmed Problem 58981910 Migraine syndrom e (G43.909) Active confirmed Problem 558222994 Gastroesophageal reflux disease, unspecified whether esophagitis present (K21.9) Active confirmed Problem 92227232 Rheumatoid arthritis, involving unspecified site, unspecified whether rheumatoid factor present (M06.9) Active confirmed Problem 691469048 Rheumatoid arthritis with positive rheumatoid factor, involving unspecified site (M05.9) Active confirmed Problem 62915625 Vaping nicotine dependence, non-tobacco product (F17.200) Active confirmed Problem 71684439504949 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) Active confirmed Problem 997964832 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) Active confirmed Vital Signs Heart Rate 85 /min 04/24/2024 Blood pressure diastolic 100 mm Hg 04/24/2024 Height 66 in 04/24/2024 Blood pressure systolic 134 mm Hg 04/24/2024 Weight 187.0 lbs 04/24/2024 BMI 30.18 kg/m2 04/24/2024 Encounters Encounter Location Date Provider Diagnosis [facility] [address] [place] [id number] 02/08/2024 Destiny Seymour Gastroesophageal ref lux disease, unspecified whether esophagitis present K21.9 and Rheumatoid arthritis, involving unspecified site, unspecified whether rheumatoid factor present M06.9 [facility] [address] [place] [id number] 04/24/2024 Destiny Seymour Strep pharyngitis J0 2.0 and Rheumatoid arthritis with positive rheumatoid factor, involving unspecified site M05.9 [facility] [address] [place] [id number] 08/01/2024 Destiny Seymour Assessments Encounter Date Diagnosis (ICD Code) Assessment [...] would like to see a different rhematologist. 04/24/2024 Strep pharyngitis (ICD-10 - J02.0) Rest, [...] site (ICD-10 - M05.9) Plan Of Treatment Pending Test Test Name Order Date Ultrasound : Right Upper Quadrant 2022 ultrasound : Transvaginal 07/27/2023 MRA: Head 03/16/2023 Holter Monitor- 48 hour 12/03/2021 Insurance Providers Payer Name Payer Address Payer Phone Subscriber Number Group Number Insured Name Patient Relationship to Insured Coverage Start Date Coverage End Date [employer] [address] [place] [address] [id number] FILI PHILLIP Self - patient is the insured Medications Administered Medication Instructions Date of Administration Dosage Notes B-12 12/16/2021 1 mL B-12 12/23/2021 1 mL Pt tolerated w ell B-12 01/05/2022 1 mL B-12 01/20/2022 1 mL Medical (General) History Medical History History ICD Code Rhematoid Arthritis SVT Surgical History Surgery Date(Month/Year) RT Hand Cyst Removal 08/2020 Cardiac ablation 11/25/2022
--- OUTSIDE RECORDS SUMMARY | 2024-12-10 13:39 | XMS_ITS | Clinical Summary ---
Author Organization [facility] Address [address] [place] [address] Care Team Providers Care Clinical Trial Associate Name Role Phone Leah Jasso APRN Primary Care Provider [phone] Encounters Date Type Department Care Team Description 09/30/2024 Telephone [facility] [address] [place] [address] Neurology, Physician, from Last 3 Months Family History Medical History Relation Name Comments Asthma Brother Relation Name Status Comments Brother 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 Tobacco Use Types Packs/Day Years Used Date Smoking Tobacco: Passive Smo ke Exposure - Never Smoker Comments Unknown Sex and Gender Information Value Date Recorded Sex Assigned at Not on file Legal Sex Female 7:52 PM EDT Gender Identity Not on file Sexual Orientation Not on file Last Filed Vital Signs Vital Sign Reading Time Taken Comments Blood Pressure 122/84 12/30/2019 2:49 PM EDT Pulse 79 12/30/2019 2:49 PM EDT Temperature - - Respiratory Rate - - Oxygen Saturation - - Inhaled Oxygen Concentration - - Weight 70.7 kg (155 lb 13.8 oz) 12/30/2019 2:49 PM EDT Height 171 cm (5' 7.32 ) 12/30/2019 2:49 PM EDT Body Mass Index 24.18 12/30/2019 2:49 PM EDT Plan of Treatment Health Maintenance Due Date Last Done Comments [facility]-Depression Screening 2001 [facility]-/Child/Adol SDOH Screenings 2001 [facility]-Varicella Vaccines (1 of 2 - 13+ 2-dose series) 2014 HPV Vaccines (1 - 3-dose series) 2016 [facility]- SDOH Screenings 2019 [facility]-Adult SDOH Screenings 2019 [facility]-DTaP,Tdap,and Td Vaccine s (1 - Tdap) 2020 [facility]-Hepatitis B Vaccines (1 of 3 - 19+ 3-dose series) 2020 [facility]-Pap Smear 2022 TIE-WAACS-42 Vaccine (1 - 20 24-25 season) 2024 [facility]-Influenza Vaccine (Seaso n Ended) 2025 [facility]-Zoster Vaccines (1 of 2) 2051 [facility]-HIB Vaccines Aged Out No longer e ligible based on patient's age to complete this topic [facility]-Hepatitis A Vaccines Aged Out No longer eligible based on patient's age to complete this topic [facility]-IPV Vaccines Aged Out No longer e ligible based on patient's age to complete this topic [facility]-Pneumococcal Vaccine: Pediatrics (0 to 5 Years) and At-Risk Patients (6 to 49 Years) Aged Out No long er eligible based on patient's age to complete this topic [facility]-Rotavirus Vaccines Aged Out No lo nger eligible based on patient's age to complete this topic Insurance [employer] Care Teams Clinical Trial Associate Relationship Specialty Start Date End Date Leah Jasso APRN [address] [facility] [address] [place] [address] PCP - General 11/13/20
--- OUTSIDE RECORDS SUMMARY | 2024-12-10 13:40 | XMS_ITS | Clinical Summary ---
Author Organization [facility] Address [address] [facility] [address] [place] [address] Phone Care Team Providers Care Icing Coater Name Role Phone Unavailable Primary Care Provider Unavailabl e Allergies No known active allergies Active Problems Problem Noted Date Diagnosed Date S/P RF ablation operation for arrhythmia 023 Overview (03/02/2023): EPS, SVT Ablation 11/25/22-Dr. Demetrio Pearson @ [facility] SVT (supraventricular tachycardia) Surgical History Surgery Date Site/Laterality Comments CYST REMOVAL 08/31/2020 - 09/30/2020 Right R Hand Cyst Removal ABLATION OF DYSRHYTHMIC FOCUS 11/25/2022 EPS, SVT Ablation-Dr. Demetrio Pearson @ [facility] Medical History Medical History Date Comments SVT (supraventricular tachycardia) 03/02/2023 Family History Medical History Relation Name Comments Cancer Maternal Grandmother Skin Diabetes Maternal Grandmother Cancer Mother Pancreatic Relation Name Status Comments Brother Alive Maternal Grandmother Mother Alive Sister Alive 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 Tobacco Use Types Packs/Day Years Used Date Smoking Tobacco: Never Smokeless Tobacco: Never Alcohol Use Standard Drinks/Week Comments Yes 0 (1 standard drink = 0.6 oz pur e alcohol) Comments Unknown Sex and Gender Information Value Date Recorded Sex Assigned at Not on file Legal Sex Female 12:29 PM EDT Gender Identity Not on file Sexual Orientation Not on file Obstetrics History Plan of Treatment Health Maintenance Due Date Last Done Comments Annual Wellness Exam 2004 HPV (1 - 3-dose series) 2016 Meningococcal B Vaccine (1 o f 2 - Standard) 2017 DTaP/TDaP/Td (1 - Tdap) 2020 Hepatitis B Vaccine (1 of 3 - 19+ 3-dose series) 2020 Cervical Cancer Screening 2022 Pap Smear 2022 COVID-19 Vaccine (2023-2 5 season) 2024 Influenza Vaccine (Season Ended) 2025 Pneumococcal Vaccine 0-49 Aged Out No longer eligible based on patient's age to complete this topic Insurance [employer] POS
== END 2024-12-10 23:59 | disposition home or self-care (01) ==
LOC: RAD 13:27
PROVIDERS: PCP Physician Assistant; Visit Provider Obstetrics & Gynecology
DX: O10.919 Unspecified pre-existing hypertension complicating pregnancy, unspecified trimester (principal); Z3A.30 30 weeks gestation of pregnancy
CPT/HCPCS: 76819

== ENCOUNTER 2024-12-13 09:51 | Outpatient (CLI) | payer BC, SELFPAY ==
--- OUTSIDE RECORDS SUMMARY | 2024-02-08 06:45 | XMS_ITS ---
Author Organization [facility] Address [address] [place] [phone] Care Team Providers Care Head Of Sales Promotion Name Role Phone Destiny Seymour Unavailable [phone] Allergies Allergen (clinical drug ingredient) Drug/Non Drug Allergy documented on EMR Reaction Allergy Type Onset Date Status erythromycin Erythromycin Unknown Drug Allergy A ctive Reason For Referral Diagnosis 1 Rheumatoid arthritis , involving unspecified site, unspecified whether rheumatoid factor present (M06.9) Referral Organization [facility] Referring Provider First Name Destiny Referring Provider Last Name Dawn Referring Provider Speciality Physician Global Clinical Leader Referred Provider Rheumatology, . Referred Provider Specialty Rheumatology General Notes Destiny Seymour 2023 11:16:04 AM > PT needs an appt with Pepper Bonilla Brynn 02/12/2024 11:44:56 AM > sent referral to Dr. Jacobs via [facility] website Referral Priority Routine REASON FOR VISIT [...] needed Orally Once a day, prn Active Hggdknyyql-ZWPQ-Pyuwlazg 50-325-40 MG 1 tablet as needed Orally [...] Problem Status W/U Status Risk Notes Problem 857627624 Gastroesophageal reflux disease, unspecified whether esophagitis present (K21.9) Active confirmed Problem 79758645 Rheumatoid arthritis, involving unspecified site, unspecified whether rheumatoid factor present (M06.9) Active confirmed Vital Signs Blood pressure systolic 140 mm Hg 02/08/20 24 Blood pressure diastolic 90 mm Hg 024 Heart Rate 69 /min 02/08/2024 Height 66 in 02/08/2024 Weight 191.2 lbs 02/08/2024 BMI 30.86 kg/m2 02/08/2024 Encounters Encounter Location Date Provider Diagnosis [facility] [address] [facility] [address] [place], [place] [phone] 02/08/2024 Destiny Seymour Gastroesophageal ref lux disease, [...] Notes * TANK PHILLIPOB:2000 (24 yo F)Acc No.[id number]:02/08/2024 Progress Notes Patient: FILI MONAHAN Provider: ETHEL Valentin :2000 A ge:23 Y S ex:Female Date:02/08/2024 Phone: Address:[address] [place] [address] , [place], [id number] Subjective: * Chief Complaints: * 1 . follow up ER, gerd. * HPI: G astroenterology: The pt is here for a follow up on an [facility] ER visit due to shortness of [...] the morning Orally once daily , Not-Taking Qumnnurxaq-TTJB-Xetisaky 50-325-40 MG Tablet 1 tablet as needed [...] rn * Billing Information: * Visit Code: 76568 Office Visit, Est Pt., Level 4. * Procedure Codes: * Electronic signature of ETHEL Edwards on 12/13/2024 at 09:54 AM EDT Sign off status: Pending * Provider: ETHEL Valentin Date: 0 02/08/2024 Generated for Melisa gonzalez/Anel/eTransmitting on: 0 12/13/2024 09:54 AM EDT History and Physical Notes * [...]
--- OUTSIDE RECORDS SUMMARY | 2024-04-24 07:30 | XMS_ITS ---
Author Organization Bradley Address [address] [facility] [address] [phone] Care Team Providers Care Talend Etl Developer Name Role Phone Destiny Seymour Unavailable [phone] Allergies Allergen (clinical drug ingredient) Drug/Non Drug [...] Last Name Dawn Referring Provider Speciality Physician Pharmacy Intern Referred Provider Rheumatology, . Referred Provider Specialty [...] Problem Status W/U Status Risk Notes Problem [id number] Rheumatoid arthritis with positive rheumatoid factor, involving unspecified site (M05.9) Active confirmed Vital Signs Blood pressure systolic 134 mm Hg 04/24/20 24 Blood pressure diastolic 100 mm Hg 024 Heart Rate 85 /min 04/24/2024 Height 66 in 04/24/2024 Weight 187.0 lbs 04/24/2024 BMI 30.18 kg/m2 04/24/2024 Encounters Encounter Location Date Provider Diagnosis [facility] [address] [place], [place] [phone] 04/24/2024 Destiny Seymour Strep pharyngitis J0 2.0 [...] Notes * TANK ROSENOB:2000 (24 yo F)Acc No.[id number]:04/24/2024 Progress Notes Patient: FILI MONAHAN Provider: ETHEL Valentin :2000 A ge:23 Y S ex:Female Date:04/24/2024 Phone: Address:[address] [place] [address] Dr Brad singer [id number] Subjective: * Chief Complaints: * 1 . [...] the morning Orally once daily , Discontinued Pvzotvtmcg-TZRZ-Qswmnovo 50-325-40 MG Tablet 1 tablet as needed [...] rn * Billing Information: * Visit Code: 77785 Office Visit, Est Pt., Level 3. * Procedure Codes: 87555 STREP A ASSAY W/OPTIC. Modifiers: QW * Electronic signature of ETHEL Edwards on 12/13/2024 at 09:54 AM EDT Sign off status: Pending * Provider: ETHEL Valentin Date: 1 Generated for Leonori lisa/Fajaseg/eTransmitting on: 0 12/13/2024 09:54 AM EDT History [...]
--- OUTSIDE RECORDS SUMMARY | 2024-06-14 09:15 | XMS_ITS ---
Author Organization Bradley Address 1210 [facility] [address] [place] [phone] Care Team Providers Care Forest Management Professor Name Role Phone Dawn Destiny Unavailable [phone] Allergies Allergen (clinical drug ingredient) Drug/Non Drug [...] Encounter Location Date Provider Diagnosis [facility] [address] [place] [phone] 06/14/2024 Destiny Seymour Plan Of Treatment No Information Progress Notes * TANK PHILLIPOB:2000 (24 yo F)Acc No.[id number]:06/14/2024 Progress Notes Patient: FILI MONAHAN Provider: ETHEL Valentin :2000 A ge:24 Y S ex:Female Date:06/14/2024 Phone: Address:[address] [place] [address] Dr SE[place] Espinal-[id number] Subjective: * Chief Complaints: * 1 . [...] 08/15/2023 Generated for Melisa gonzalez/Anel/Misbahitting on: 0 12/13/2024 09:54 AM EDT History and Physical Notes * HPI (History of Present Illness) Category Sub-Category Detail Notes Category Not es HPI Patient is here today for Pt is here toda y for a check up
--- OUTSIDE RECORDS SUMMARY | 2024-12-13 09:54 | XMS_ITS | Clinical Summary ---
Author Organization [facility] Address [address] [place] [address] Care Team Providers Care Cold Mill Inspector Name Role Phone Leah Jasso APRN Primary Care Provider [phone] Encounters Date Type Department Care Team Description 09/30/[address] [facility] [address], [address] [place] [address] Neurology, Physician, from Last 3 [...] 19+ 3-dose series) 2020 UKY-Pap Smear 2022 [id number] Vaccine (1 - 20 24-25 season) 2024 [...] complete this topic Insurance WANG Care Teams Cold Mill Inspector Relationship Specialty Start Date End Date Leah Jasso APRN [address] [facility] [address] [place] [address] PCP - General 11/13/20
--- OUTSIDE RECORDS SUMMARY | 2024-12-13 09:54 | XMS_ITS | Patient Health Record ---
Author Organization [facility] Address [address] [place] [id number] Care Team Providers Care Intensive Care Unit Nurse Name Role Phone Destiny Seymour Unavailable [phone] Allergies Allergen (clinical drug ingredient) Drug/Non Drug [...] Last Name Dawn Referring Provider Speciality Physician Control And Recovery Special Tactics Referred Provider Rheumatology, . Referred Provider Specialty Rheumatology General Notes Destiny Seymour 2023 11:16:04 AM > PT needs an appt with Pepper Bonilla Brynn 02/12/2024 11:44:56 AM > sent referral to Dr. Jacobs via [facility] website Referral Priority Routine Diagnosis 1 Rheumatoid arthritis with positive rheumatoid factor, involving unspecified site (M05.9) Referral Organization [facility] Referring Provider First Name Destiny Referring Provider Last Name Dawn Referring Provider Speciality Physician Control And Recovery Special Tactics Referred Provider Rheumatology, . Referred Provider Specialty [...] Problem Status W/U Status Risk Notes Problem 4775226 SVT (supraventricular tachycardia) (I47.1) Active confirmed Problem 89742804 Paresthesia (R20.2) Active confirmed Problem 755228120 Depression with anxiety (F41.8) Active confirmed Problem 672025034 Thyroid nodule (E04.1) Active confirmed Problem 577724275 Panic attacks (F41.0) Active confirmed Problem 698508613 Intractable migraine with aura without status migrainosus (G43.119) Active confirmed Problem 697606595 Cardiac arrhythm ia, unspecified cardiac arrhythmia type (I49.9) Active confirmed Problem 017301963 Intractable migraine without status migrainosus, unspecified migraine type (G43.919) Active confirmed Problem 7160647 Thyromegaly (E01.0) Active confirmed Problem 93075316 Migraine syndrom e (G43.909) Active confirmed Problem 035600031 Gastroesophageal reflux disease, unspecified whether esophagitis present (K21.9) Active confirmed Problem 11307181 Rheumatoid arthritis, involving unspecified site, unspecified whether rheumatoid factor present (M06.9) Active confirmed Problem 705437425 Rheumatoid arthritis with positive rheumatoid factor, involving unspecified site (M05.9) Active confirmed Problem 14021590 Vaping nicotine dependence, non-tobacco product (F17.200) Active confirmed Problem 16142344911258 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) Active confirmed Problem 517688265 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) Active confirmed Vital Signs Heart Rate 85 /min 04/24/2024 Blood pressure diastolic 100 mm Hg 04/24/2024 Height 66 in 04/24/2024 Blood pressure systolic 134 mm Hg 04/24/2024 Weight 187.0 lbs 04/24/2024 BMI 30.18 kg/m2 04/24/2024 Encounters Encounter Location Date Provider Diagnosis [place] [facility] [address] [place] [id number] 02/08/2024 Destiny Seymour Gastroesophageal ref lux disease, unspecified whether esophagitis present K21.9 and Rheumatoid arthritis, involving unspecified site, unspecified whether rheumatoid factor present M06.9 [place] [address] [facility] [address] [place] [id number] 04/24/2024 Destiny Seymour Strep pharyngitis J0 2.0 and Rheumatoid arthritis with positive rheumatoid factor, involving unspecified site M05.9 [place] [facility] [facility] [address] [place] [id number] 08/01/2024 Destiny Seymour Assessments Encounter Date Diagnosis [...] WANG ARELLANO CR[employer] SHIELD [address] [place] [address] [id number] 002 FILI PHILLIP Self - patient is [...]
--- OUTSIDE RECORDS SUMMARY | 2024-12-13 09:54 | XMS_ITS | Clinical Summary ---
Author Organization [facility] [place] Address [address] [facility] [address] [place] [address] Phone Care Team Providers Care Drawing Press Operator Name Role Phone Unavailable Primary Care Provider Unavailabl e Allergies No known active allergies Active Problems Problem Noted Date Diagnosed Date S/P RF ablation operation for arrhythmia 023 Overview (03/02/2023): EPS, SVT Ablation 11/25/22-Dr. Demetrio Pearson @ [facility] SVT (supraventricular tachycardia) Surgical History Surgery Date Site/Laterality Comments CYST REMOVAL 08/31/2020 - 09/30/2020 Right R Hand Cyst Removal ABLATION OF DYSRHYTHMIC FOCUS 11/25/2022 EPS, SVT Ablation-Dr. Demetroi Pearson @ [facility] Medical History Medical History Date Comments [...]
[2024-12-13 10:21] VITALS: BP 142/86; PULSE 90; RESP 17; TEMP 36.9; O2SAT 100; BMI 33.2
[2024-12-13 10:37] LABS: Microscopic, Urine URINE MICROSCOPIC (MICROSCOPIC)
[2024-12-13 10:41] LABS: Appearance,Urine CLOUDY (Clear); Bilirubin,Urine Negative (Negative); Blood, Urine TRACE-I (Negative); Color,Urine YELLOW (Yellow); Glucose,Urine (UA) Negative (Negative); Ketones,Urine Negative (Negative); Leukocyte Esterase,Urine 3+ (Negative); Nitrate,Urine Negative (Negative); PH,Urine 7.5 (5.0-8.5); Protein,Urine Negative (Negative); Urobilinogen,Urine 0.2 EU/dl (0.2)
[2024-12-13 10:57] LABS: Bacteria,Urine 1+ /lpf; RBC,Urine Occasional #/hpf (0-3); Squamous Epithelial Cell,Urine 50-100 #/hpf (0-5)
== END 2024-12-13 11:20 | disposition home or self-care (01) ==
LOC: OBOUT 09:52 → OB 09:53
PROVIDERS: PCP Physician Assistant; Visit Provider Obstetrics & Gynecology
DX: O32.1XX0 Maternal care for breech presentation, not applicable or unspecified (principal); O10.913 Unspecified pre-existing hypertension complicating pregnancy, third trimester; Z3A.30 30 weeks gestation of pregnancy
CPT/HCPCS: 59025; 81001; 87086; 99212; G0463

== ENCOUNTER 2024-12-17 12:50 | Outpatient (CLI) | payer BC, SELFPAY ==
--- OUTSIDE RECORDS SUMMARY | 2024-02-08 06:45 | XMS_ITS ---
Author Organization [facility] Address [address] [place] [phone] Care Team Providers Care Teletype Installer Name Role Phone Destiny Seymour Unavailable [phone] Allergies Allergen (clinical drug ingredient) Drug/Non Drug Allergy documented on EMR Reaction Allergy Type Onset Date Status erythromycin Erythromycin Unknown Drug Allergy A ctive Reason For Referral Diagnosis 1 Rheumatoid arthritis , involving unspecified site, unspecified whether rheumatoid factor present (M06.9) Referral Organization [facility] Referring Provider First Name Destiny Referring Provider Last Name Dawn Referring Provider Speciality Physician Twister Hand Referred Provider Rheumatology, . Referred Provider Specialty Rheumatology General Notes Destiny Seymour 2023 11:16:04 AM > PT needs an appt with Pepper Bonilla Brynn 02/12/2024 11:44:56 AM > sent referral to Dr. Jacobs via [facility] website Referral Priority Routine REASON FOR [...] needed Orally Once a day, prn Active Bwvnqkvczp-RANW-Dlaljexh 50-325-40 MG 1 tablet as needed Orally [...] Problem Status W/U Status Risk Notes Problem [id number] Gastroesophageal reflux disease, unspecified whether esophagitis present (K21.9) Active confirmed Problem 56731528 Rheumatoid arthritis, involving unspecified site, unspecified whether rheumatoid factor present (M06.9) Active confirmed Vital Signs Blood pressure systolic 140 mm Hg 02/08/20 24 Blood pressure diastolic 90 mm Hg 024 Heart Rate 69 /min 02/08/2024 Height 66 in 02/08/2024 Weight 191.2 lbs 02/08/2024 BMI 30.86 kg/m2 02/08/2024 Encounters Encounter Location Date Provider Diagnosis [facility] [address] [facility] [address] [place], [place] [phone] 02/08/2024 Destiny Seymour Gastroesophageal ref lux disease, [...] Notes * TANK PHILLIPOB:2000 (24 yo F)Acc No.[id number]:02/08/2024 Progress Notes Patient: FILI MONAHAN Provider: ETHEL Valentin :2000 A ge:23 Y S ex:Female Date:02/08/2024 Phone: Address:[address] [place] [address] , [place], [id number] Subjective: * Chief Complaints: * 1 . follow up ER, gerd. * HPI: G astroenterology: The pt is here for a follow up on an [facility] ER visit due to shortness of breath [...] the morning Orally once daily , Not-Taking Dvqiicnyxn-ENAD-Wpktqdmq 50-325-40 MG Tablet 1 tablet as needed [...] rn * Billing Information: * Visit Code: 33836 Office Visit, Est Pt., Level 4. * Procedure Codes: * Electronic signature of ETHEL Edwards on 12/17/2024 at 12:55 PM EDT Sign off status: Pending * Provider: ETHEL Valentin Date: 0 02/08/2024 Generated for Melisa gonzalez/Anel/eTransmitting on: 0 12/17/2024 12:55 PM EDT History and Physical Notes * [...]
--- OUTSIDE RECORDS SUMMARY | 2024-04-24 07:30 | XMS_ITS ---
Author Organization Bradley Address [address] [facility] [address] [phone] Care Team Providers Care Architectural Practice Manager Name Role Phone Destiny Seymour Unavailable [phone] Allergies Allergen (clinical drug ingredient) Drug/Non Drug [...] Last Name Dawn Referring Provider Speciality Physician Telephone Operators Supervisor Referred Provider Rheumatology, . Referred Provider Specialty [...] MG 1 cap(s) Orally Two times a day for 10 day(s) 04/24/2024 Active Slynd 4 MG 1 tablet Orally Once a day for 30 day(s) Active Ubrelvy 100 MG 1 [...] Problem Status W/U Status Risk Notes Problem [id number] Rheumatoid arthritis with positive rheumatoid factor, involving unspecified site (M05.9) Active confirmed Vital Signs Blood pressure systolic 134 mm Hg 04/24/20 24 Blood pressure diastolic 100 mm Hg 024 Heart Rate 85 /min 04/24/2024 Height 66 in 04/24/2024 Weight 187.0 lbs 04/24/2024 BMI 30.18 kg/m2 04/24/2024 Encounters Encounter Location Date Provider Diagnosis [facility] [address] [place], [place] [id number] 04/24/2024 Destiny Seymour Strep pharyngitis J0 2.0 [...] MG 1 cap(s) Orally Two times a day for 10 day(s) 04/24/2024 Treatment Notes Assessment Notes Strep pharyngitis Rest, Fluids, tyleno l or motrin for fever, gargle with warm water or salt water, throw away toothbrush after a few days on the antibiotic. The patient had amoxicillin for strep about 2-3 weeks ago. Will start on cefdinir. Will monitor BP at home. Referrals Referral Date Details 04/24/2024 04/24/2024, . Rheuma joseluisy Next Appt Details Follow Up: prn, Reason: Progress Notes * TANK ROSENOB:2000 (24 yo F)Acc No.[id number]:04/24/2024 Progress Notes Patient: FILI MONAHAN Provider: ETHEL Valentin :2000 A ge:23 Y S ex:Female Date:04/24/2024 Phone: Address:[address] [place] [address] Dr Brad singer [id number] Subjective: * Chief Complaints: * 1 . [...] the morning Orally once daily , Discontinued Ldwiccurqp-TIZI-Buaxotqm 50-325-40 MG Tablet 1 tablet as needed [...] Examination: E NT/Respiratory: General Appearance: N AD. Ears: a uditory canals normal bilaterally, TM's WNL. Nose : no edema, good color. Sinuses : non tender bilaterally. Oral cavity : tonsils 2+ enlarged, erythema with exudate on tonsils. Neck : supple, bilateral tender lymphadenopathy. Heart : R RR, normal S1 S2, no murmurs. Lungs: c lear to auscultation bilaterally. Assessment: * [...] QW * Follow Up: p rn * Billing Information: * Visit Code: 38042 Office Visit, Est Pt., Level 3. * Procedure Codes: 33044 STREP A ASSAY W/OPTIC. Modifiers: QW * Electronic signature of ETHEL Edwards on 12/17/2024 at 12:55 PM EDT Sign off status: Pending * Provider: ETHEL Valentin Date: 1 Generated for Leonori lisa/Fajaseg/eTransmitting on: 0 12/17/2024 12:55 PM EDT History [...]
--- OUTSIDE RECORDS SUMMARY | 2024-06-14 09:15 | XMS_ITS ---
Author Organization Bradley Address 1210 [facility] [address] [place] [phone] Care Team Providers Care Poultry Farmer Egg Name Role Phone Dawn Destiny Unavailable [phone] Allergies Allergen (clinical drug ingredient) Drug/Non Drug [...] Encounter Location Date Provider Diagnosis [facility] [address] [place] [phone] 06/14/2024 Destiny Seymour Plan Of Treatment No Information Progress Notes * TNAK PHILLIPOB:2000 (24 yo F)Acc No.[id number]:06/14/2024 Progress Notes Patient: FILI MONAHAN Provider: ETHEL Valentin :2000 A ge:24 Y S ex:Female Date:06/14/2024 Phone: Address:[address] [place] [address] Dr SE[place] Espinal-[id number] Subjective: * Chief Complaints: * 1 . [...] 08/15/2023 Generated for Melisa gonzalez/Anel/Misbahitting on: 0 12/17/2024 12:55 PM EDT History and Physical Notes * HPI (History of Present Illness) Category Sub-Category Detail Notes Category Not es HPI Patient is here today for Pt is here toda y for a check up
--- OUTSIDE RECORDS SUMMARY | 2024-12-17 12:55 | XMS_ITS | Clinical Summary ---
Author Organization [facility] [place] Address [address] [facility] [address] [place] [address] Phone Care Team Providers Care Thermostat Repairer Name Role Phone Unavailable Primary Care Provider Unavailabl e Allergies No known active allergies Active Problems Problem Noted Date Diagnosed Date S/P RF ablation operation for arrhythmia 023 Overview (03/02/2023): EPS, SVT Ablation 11/25/22-Dr. Demetrio Pearson @ [facility] SVT (supraventricular tachycardia) Surgical History Surgery Date Site/Laterality Comments CYST REMOVAL 08/31/2020 - 09/30/2020 Right R Hand Cyst Removal ABLATION OF DYSRHYTHMIC FOCUS 11/25/2022 EPS, SVT Ablation-Dr. Demetrio Pearson @ [facility] Medical History Medical History Date Comments SVT [...]
--- OUTSIDE RECORDS SUMMARY | 2024-12-17 12:55 | XMS_ITS | Patient Health Record ---
Author Organization [facility] Address [address] [place] [id number] Care Team Providers Care Office Machine Installer Name Role Phone Destiny Seymour Unavailable [phone] Allergies Allergen (clinical drug ingredient) Drug/Non Drug [...] Last Name Dawn Referring Provider Speciality Physician Customer Account Specialist Referred Provider Rheumatology, . Referred Provider Specialty Rheumatology General Notes Destiny Seymour 2023 11:16:04 AM > PT needs an appt with Pepper Bonilla Brynn 02/12/2024 11:44:56 AM > sent referral to Dr. Jacobs via [facility] website Referral Priority Routine Diagnosis 1 Rheumatoid arthritis with positive rheumatoid factor, involving unspecified site (M05.9) Referral Organization [facility] Referring Provider First Name Destiny Referring Provider Last Name Dawn Referring Provider Speciality Physician Customer Account Specialist Referred Provider Rheumatology, . Referred Provider Specialty Rheumatology General Notes Destiny Seymour 04/03 12:23:11 PM > Pt needs to see ePpper Bonilla Brynn 04/24/2024 12:51:53 PM > faxed [...] Problem Status W/U Status Risk Notes Problem 7769221 SVT (supraventricular tachycardia) (I47.1) Active confirmed Problem 43661868 Paresthesia (R20.2) Active confirmed Problem 115431723 Depression with anxiety (F41.8) Active confirmed Problem 377600217 Thyroid nodule (E04.1) Active confirmed Problem 300377257 Panic attacks (F41.0) Active confirmed Problem 647234489 Intractable migraine with aura without status migrainosus (G43.119) Active confirmed Problem 942921239 Cardiac arrhythm ia, unspecified cardiac arrhythmia type (I49.9) Active confirmed Problem 226725314 Intractable migraine without status migrainosus, unspecified migraine type (G43.919) Active confirmed Problem 6215122 Thyromegaly (E01.0) Active confirmed Problem 71430671 Migraine syndrom e (G43.909) Active confirmed Problem 007596386 Gastroesophageal reflux disease, unspecified whether esophagitis present (K21.9) Active confirmed Problem 31119862 Rheumatoid arthritis, involving unspecified site, unspecified whether rheumatoid factor present (M06.9) Active confirmed Problem 073485266 Rheumatoid arthritis with positive rheumatoid factor, involving unspecified site (M05.9) Active confirmed Problem 10138911 Vaping nicotine dependence, non-tobacco product (F17.200) Active confirmed Problem 11830129928701 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) Active confirmed Problem 312401667 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) Active confirmed Vital Signs Heart Rate 85 /min 04/24/2024 Blood pressure diastolic 100 mm Hg 04/24/2024 Height 66 in 04/24/2024 Blood pressure systolic 134 mm Hg 04/24/2024 Weight 187.0 lbs 04/24/2024 BMI 30.18 kg/m2 04/24/2024 Encounters Encounter Location Date Provider Diagnosis [place] [facility] [facility] [address] [place] [id number] 02/08/2024 Destiny Seymour Gastroesophageal ref lux disease, unspecified whether esophagitis present K21.9 and Rheumatoid arthritis, involving unspecified site, unspecified whether rheumatoid factor present M06.9 [place] [facility] [address] [place] [id number] 04/24/2024 Destiny Seymour Strep pharyngitis J0 2.0 and Rheumatoid arthritis with positive rheumatoid factor, involving unspecified site M05.9 [place] [facility] [address] [place] [id number] 08/01/2024 Destiny Seymour Assessments Encounter Date Diagnosis [...] WANG ARELLANO CROSSBLUE SHIELD [address] [address] [phone] [id number] 002 FILI PHILLIP Self - patient is [...]
--- OUTSIDE RECORDS SUMMARY | 2024-12-17 12:55 | XMS_ITS | Clinical Summary ---
Author Organization [facility] Address [address] [place] [address] Care Team Providers Care Hydroelectric Station Operator Chief Name Role Phone Leah Jasso APRN Primary Care Provider [phone] Encounters Date Type Department Care Team Description 09/30/2024 Telephone [place] [facility] [address], 1st [place] [address] Neurology, Physician, from Last 3 [...] 19+ 3-dose series) 2020 [facility]Y-Pap Smear 2022 [id number] Vaccine (1 - 20 24-25 season) 2024 [...] complete this topic Insurance WANG Care Teams Hydroelectric Station Operator Chief Relationship Specialty Start Date End Date Leah Jasso APRN [address] [facility] [address] [place] [address] PCP - General 11/13/20
--- NOTE | 2024-12-17 13:00 | US_ITS ---
PROCEDURE: US OB BIOPHYSICAL PROFILE CLINICAL INDICATION: needs for early Preeclampsia COMPARISON: US US OB <= 14 WEEKS FETUS from 06/24/2024 US US OB /MATERNAL DETAIL from 09/26/2024 US OB FOLLOW UP from 10/24/2024 US OB TRANSVAGINAL from 10/24/2024 US OB FOLLOW UP from 11/21/2024 US OB BIOPHYSICAL PROFILE from 12/10/2024 FINDINGS: Transabdominal sonographic images of the uterus were obtained. From her established due date she is 31weeks 2days. The following parameters are obtained: Viable Fetus in the cephalic presentation with and anterior placenta grade 2. Cervix measures 3.3 cm Measurements: heart Rate = 150bpm Amniotic fluid index: 13.41cm, MVP 3.86 cm Qualitative AFV:2 Breathing movements: 2 Gross Body Movements: 2 Tone: 2 Biophysical profile score: 8 No obvious anomalies evident.Kidneys, stomach, bladder, four-chamber heart, three-vessel cord appear normal. IMPRESSION: 1. Viable fetus in the cephalic presentation with an anterior placenta grade 2. 2. Fluid is within normal limits with an amniotic fluid index 13.41 cm, MVP 3.86 cm. 3. Biophysical profile is 8/8 with good breathing movement and movement seen. 4. Limited anatomical scan appears normal. Dictated by: Oliverio Amanda MD 12/17/2024 15:51 Oliverio Amanda MD in [place] 12/17/2024 15:51
[2024-12-17 16:40] LABS: Basophils % 0.1 % (0.1-2.0); Eosinophils % 0.5 % (0.1-12.0); Hematocrit 31.4 % (37.0-47.0); Hemoglobin 10.9 g/dL (12.2-16.2); Immature Granulocytes # 0.05 10^3uL; Immature Granulocytes % 0.6 %; Lymphocytes % 11.6 % (10-50); Mean Corpuscular HGB Conc 34.7 g/dL (31.8-35.4); Mean Corpuscular Hemoglobin 31.3 pg (27.0-31.2); Mean Corpuscular Volume 90.2 fl (81-99); Mean Platelet Volume 10.2 fl (7.4-10.4); Monocytes # 0.4 K/mm3 (0.1-1.0); Monocytes % 4.4 % (1.7-9.3); Neutrophils % 82.8 % (37.0-80.0); Nucleated Red Blood Cells # 0 10^3/uL; Nucleated Red Blood Cells % 0 %; Platelet Count 258 K/mm3 (142-424); Red Blood Count 3.48 M/mm3 (4.20-5.40); Red Cell Distribution Width 12.7 % (11.5-17.5); Red Cell Distribution Width-SD 41.6 fL; White Blood Count 8.4 K/mm3 (4.8-10.8)
[2024-12-17 18:56] LABS: Chloride 109 mmol/L (98-107)
[2024-12-17 18:57] LABS: Albumin Level 3.5 g/dl (3.5-5.0); Potassium 3.8 mmoL/L (3.5-5.1); Sodium 135 mmol/L (136-145)
[2024-12-17 18:59] LABS: Alanine Aminotransferase 13 U/L (12-78); Anion Gap 8.8 mEq/L (5-15); Aspartate Amino Transferase 19 U/L (14-36); Blood Urea Nitrogen 4 mg/dl (7-17); Carbon Dioxide 21 mmol/L (22.0-30.0); Estimated Glomerular Filt Rate 153 ml/min (>60); GFR (African American) 185 ML/MIN (>60)
[2024-12-17 19:00] LABS: Albumin/Globulin Ratio 1.3 (1.1-1.8); Alkaline Phosphatase 82 U/L (38-126); Bilirubin,Total 0.3 mg/dl (0.2-1.3); Calcium 8.6 mg/dl (8.4-10.2); Globulin 2.8 g/dL (1.3-3.2); Glucose 97 mg/dl (74-100); Total Protein,Serum 6.3 g/dl (6.3-8.2)
[2024-12-17 19:28] LABS: Uric Acid 3.9 mg/dl (2.5-6.2)
== END 2024-12-17 23:59 | disposition home or self-care (01) ==
PROVIDERS: PCP Physician Assistant; Visit Provider Obstetrics & Gynecology
DX: O11.3 Pre-existing hypertension with pre-eclampsia, third trimester (principal); Z3A.31 31 weeks gestation of pregnancy
CPT/HCPCS: 36415; 76819; 80053; 84550; 85025

== ENCOUNTER 2024-12-18 15:40 | Outpatient (CLI) | payer BC, SELFPAY ==
--- OUTSIDE RECORDS SUMMARY | 2024-02-08 06:45 | XMS_ITS ---
Author Organization [facility] Address [address] [place] [phone] Care Team Providers Care Plc Technician Name Role Phone Destiny Seymour Unavailable [phone] Allergies Allergen (clinical drug ingredient) Drug/Non Drug Allergy documented on EMR Reaction Allergy Type Onset Date Status erythromycin Erythromycin Unknown Drug Allergy A ctive Reason For Referral Diagnosis 1 Rheumatoid arthritis , involving unspecified site, unspecified whether rheumatoid factor present (M06.9) Referral Organization [facility] Referring Provider First Name Destiny Referring Provider Last Name Dawn Referring Provider Speciality Physician Manager Of Patient Referred Provider Rheumatology, . Referred Provider Specialty Rheumatology General Notes Destiny Seymour 2023 11:16:04 AM > PT needs an appt with Pepper Bonilla Brynn 02/12/2024 11:44:56 AM > sent referral to Dr. Jacobs via [facility] website Referral Priority Routine REASON FOR [...] needed Orally Once a day, prn Active Gxoheczcui-RKLM-Maixfthf 50-325-40 MG 1 tablet as needed Orally [...] Problem Status W/U Status Risk Notes Problem 803928170 Gastroesophageal reflux disease, unspecified whether esophagitis present (K21.9) Active confirmed Problem 14949807 Rheumatoid arthritis, involving unspecified site, unspecified whether rheumatoid factor present (M06.9) Active confirmed Vital Signs Blood pressure systolic 140 mm Hg 02/08/20 24 Blood pressure diastolic 90 mm Hg 024 Heart Rate 69 /min 02/08/2024 Height 66 in 02/08/2024 Weight 191.2 lbs 02/08/2024 BMI 30.86 kg/m2 02/08/2024 Encounters Encounter Location Date Provider Diagnosis [facility] [address] [facility] [address] [place], [place] [phone] 02/08/2024 Destiny Seymour Gastroesophageal ref lux disease, [...] Notes * TANK PHILLIPOB:2000 (24 yo F)Acc No.[id number]:02/08/2024 Progress Notes Patient: FILI MONAHAN Provider: ETHEL Valentin :2000 A ge:23 Y S ex:Female Date:02/08/2024 Phone: Address:[address] [place] [address] , [place], [id number] Subjective: * Chief Complaints: * 1 . follow up ER, gerd. * HPI: G astroenterology: The pt is here for a follow up on an [facility] ER visit due to shortness of [...] the morning Orally once daily , Not-Taking Sojipeeytj-LPBA-Lnpbgihr 50-325-40 MG Tablet 1 tablet as needed [...] rn * Billing Information: * Visit Code: 78086 Office Visit, Est Pt., Level 4. * Procedure Codes: * Electronic signature of ETHEL Edwards on 12/18/2024 at 03:45 PM EDT Sign off status: Pending * Provider: ETHEL Valentin Date: 0 02/08/2024 Generated for Melisa gonzalez/Anel/eTransmitting on: 0 12/18/2024 03:45 PM EDT History and Physical Notes * [...]
--- OUTSIDE RECORDS SUMMARY | 2024-04-24 07:30 | XMS_ITS ---
Author Organization Bradley Address [address] [facility] [address] [phone] Care Team Providers Care Cooking Teacher Name Role Phone Destiny Seymour Unavailable [phone] Allergies Allergen (clinical drug ingredient) Drug/Non Drug [...] Last Name Dawn Referring Provider Speciality Physician Cabinet Assembler Referred Provider Rheumatology, . Referred Provider Specialty [...] Problem Status W/U Status Risk Notes Problem [id number] Rheumatoid arthritis with positive rheumatoid factor, involving unspecified site (M05.9) Active confirmed Vital Signs Blood pressure systolic 134 mm Hg 04/24/20 24 Blood pressure diastolic 100 mm Hg 024 Heart Rate 85 /min 04/24/2024 Height 66 in 04/24/2024 Weight 187.0 lbs 04/24/2024 BMI 30.18 kg/m2 04/24/2024 Encounters Encounter Location Date Provider Diagnosis [facility] [address] [place], [place] [id number] 04/24/2024 Destiny Seymour Strep pharyngitis J0 2.0 [...] Notes * TANK ROSENOB:2000 (24 yo F)Acc No.[id number]:04/24/2024 Progress Notes Patient: FILI MONAHAN Provider: ETHEL Valentin :2000 A ge:23 Y S ex:Female Date:04/24/2024 Phone: Address:[address] [place] [address] Dr Brad singer [id number] Subjective: * Chief Complaints: * 1 . [...] the morning Orally once daily , Discontinued Joalvjipef-JCFH-Wcnaqrqj 50-325-40 MG Tablet 1 tablet as needed [...] rn * Billing Information: * Visit Code: 66259 Office Visit, Est Pt., Level 3. * Procedure Codes: 94174 STREP A ASSAY W/OPTIC. Modifiers: QW * Electronic signature of ETHEL Edwards on 12/18/2024 at 03:45 PM EDT Sign off status: Pending * Provider: ETHEL Valentin Date: 1 Generated for Leonori lisa/Fajaseg/eTransmitting on: 0 12/18/2024 03:45 PM EDT History [...]
--- OUTSIDE RECORDS SUMMARY | 2024-06-14 09:15 | XMS_ITS ---
Author Organization [place] Address 1210 [facility] [address] [place] [phone] Care Team Providers Care Sawmill Relief Worker Name Role Phone Dawn Destiny Unavailable [phone] Allergies Allergen (clinical drug ingredient) Drug/Non Drug [...] Encounter Location Date Provider Diagnosis Nikolas 1210 [facility] [address] [place] [phone] 06/14/2024 Destiny Seymour Plan Of Treatment No Information Progress Notes * TANK PHILLIPOB:2000 (24 yo F)Acc No.[id number]:06/14/2024 Progress Notes Patient: FILI MONAHAN Provider: ETHEL Valentin :2000 A ge:24 Y S ex:Female Date:06/14/2024 Phone: Address:[address] [place] [address] Dr SE[place] Espinal-[id number] Subjective: * Chief Complaints: * 1 . [...] signature of ETHEL Edwards on 12/18/2024 at 03:44 PM EDT Sign off status: Pending * Provider: ETHEL Valentin Date: 1 08/15/2023 Generated for Melisa gonzalez/Anel/Misbahitting on: 0 12/18/2024 03:44 PM EDT History and Physical Notes * HPI (History of Present Illness) Category Sub-Category Detail Notes Category Not es HPI Patient is here today for Pt is here toda y for a check up
--- OUTSIDE RECORDS SUMMARY | 2024-12-18 15:43 | XMS_ITS | Clinical Summary ---
Author Organization [facility] Address [address] [place] [address] Care Team Providers Care General Office Assistant Name Role Phone Leah Jasso APRN Primary Care Provider [phone] Encounters Date Type Department Care Team Description 09/30/2024 Telephone [place] [facility] [address], 1[address] [place] [address] Neurology, Physician, from Last 3 [...] 19+ 3-dose series) 2020 [facility]Y-Pap Smear 2022 [id number] Vaccine (1 - 20 24-25 season) 2024 [...] complete this topic Insurance WANG Care Teams General Office Assistant Relationship Specialty Start Date End Date Leah Jasso APRN [address] [facility] [address] [place] [address] PCP - General 11/13/20
--- OUTSIDE RECORDS SUMMARY | 2024-12-18 15:43 | XMS_ITS | Clinical Summary ---
Author Organization [facility] [place] Address [address] [facility] [address] [place] [address] Phone Care Team Providers Care Glass Finisher Name Role Phone Unavailable Primary Care Provider Unavailabl e Allergies No known active allergies Active Problems Problem Noted Date Diagnosed Date S/P RF ablation operation for arrhythmia 023 Overview (03/02/2023): EPS, SVT Ablation 11/25/22-Dr. Demetrio Pearson @ [facility] SVT (supraventricular tachycardia) Surgical History Surgery Date Site/Laterality Comments CYST REMOVAL 08/31/2020 - 09/30/2020 Right R Hand Cyst Removal ABLATION OF DYSRHYTHMIC FOCUS 11/25/2022 EPS, SVT Ablation-Dr. Demetrio Pearson @ [facility] Medical History Medical History Date [...]
--- OUTSIDE RECORDS SUMMARY | 2024-12-18 15:43 | XMS_ITS | Patient Health Record ---
Author Organization [facility] Address [address] [place] [id number] Care Team Providers Care Parking Line Painter Name Role Phone Destiny Seymour Unavailable [phone] Allergies Allergen (clinical drug ingredient) Drug/Non Drug [...] Name Dawn Referring Provider Speciality Physician Senior Sql Server Developer Referred Provider Rheumatology, . Referred Provider Specialty Rheumatology General Notes Destiny Seymour 2023 11:16:04 AM > PT needs an appt with Pepper Bonilla Brynn 02/12/2024 11:44:56 AM > sent referral to Dr. Jacobs via [facility] website Referral Priority Routine Diagnosis 1 Rheumatoid arthritis with positive rheumatoid factor, involving unspecified site (M05.9) Referral Organization [facility] Referring Provider First Name Destiny Referring Provider Last Name Dawn Referring Provider Speciality Physician Senior Sql Server Developer Referred Provider Rheumatology, . Referred Provider Specialty [...] Problem Status W/U Status Risk Notes Problem 7227000 SVT (supraventricular tachycardia) (I47.1) Active confirmed Problem 14813551 Paresthesia (R20.2) Active confirmed Problem 560735833 Depression with anxiety (F41.8) Active confirmed Problem 043447770 Thyroid nodule (E04.1) Active confirmed Problem 345365776 Panic attacks (F41.0) Active confirmed Problem 125823945 Intractable migraine with aura without status migrainosus (G43.119) Active confirmed Problem 993498778 Cardiac arrhythm ia, unspecified cardiac arrhythmia type (I49.9) Active confirmed Problem 305193545 Intractable migraine without status migrainosus, unspecified migraine type (G43.919) Active confirmed Problem 5473739 Thyromegaly (E01.0) Active confirmed Problem 05185930 Migraine syndrom e (G43.909) Active confirmed Problem 890423219 Gastroesophageal reflux disease, unspecified whether esophagitis present (K21.9) Active confirmed Problem 70479186 Rheumatoid arthritis, involving unspecified site, unspecified whether rheumatoid factor present (M06.9) Active confirmed Problem 988519653 Rheumatoid arthritis with positive rheumatoid factor, involving unspecified site (M05.9) Active confirmed Problem 56504156 Vaping nicotine dependence, non-tobacco product (F17.200) Active confirmed Problem 70679801784117 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) Active confirmed Problem 778084905 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) Active confirmed Vital Signs Heart Rate 85 /min 04/24/2024 Blood pressure diastolic 100 mm Hg 04/24/2024 Height 66 in 04/24/2024 Blood pressure systolic 134 mm Hg 04/24/2024 Weight 187.0 lbs 04/24/2024 BMI 30.18 kg/m2 04/24/2024 Encounters Encounter Location Date Provider Diagnosis [place] [facility] [facility] [address] [place] [id number] 02/08/2024 Destiny Seymour Gastroesophageal ref lux disease, unspecified whether esophagitis present K21.9 and Rheumatoid arthritis, involving unspecified site, unspecified whether rheumatoid factor present M06.9 [place] [address] [facility] [address] [place] [id number] 04/24/2024 Destiny Seymour Strep pharyngitis J0 2.0 and Rheumatoid arthritis with positive rheumatoid factor, involving unspecified site M05.9 [place] [address] [facility] [address] [place] [id number] 08/01/2024 Destiny Seymour Assessments Encounter Date Diagnosis [...] WANG ARELLANO CROSSBLUE SHIELD [address] [place] [address] [id number] 002 FILI PHILLIP Self - patient is [...]
[2024-12-18 16:00] VITALS: BP 151/95; PULSE 90; RESP 17; TEMP 36.7; O2SAT 97
[2024-12-18] MEDS: MVI, ADULT NO.1 WITH VIT K 10 ML, THIAMINE HCL 100 MG, MAGNESIUM SULFATE 2 GM in LACTAT... 125 ML IV (16:04)
[2024-12-18 16:15] VITALS: BMI 34.0
[2024-12-18 16:22] LABS: Microscopic, Urine URINE MICROSCOPIC (MICROSCOPIC)
[2024-12-18 16:30] LABS: Appearance,Urine CLEAR (Clear); Bilirubin,Urine Negative (Negative); Blood, Urine Negative (Negative); Color,Urine YELLOW (Yellow); Glucose,Urine (UA) Negative (Negative); Ketones,Urine Negative (Negative); Leukocyte Esterase,Urine TRACE (Negative); Nitrate,Urine Negative (Negative); PH,Urine 6.5 (5.0-8.5); Protein,Urine Negative (Negative); Urobilinogen,Urine 0.2 EU/dl (0.2)
[2024-12-18] MEDS: BUTALB/ACETAMINOPHEN/CAFFEINE 50MG/325MG/40MG TAB 1 EACH PO (16:45)
[2024-12-18 16:49] VITALS: BMI 33.0
[2024-12-18 17:09] LABS: Amorphous Sediment,Urine 1+ /lpf; Bacteria,Urine Trace /lpf; WBC,Urine Occasional #/hpf (0-3)
== END 2024-12-18 18:30 | disposition home or self-care (01) ==
LOC: OBOUT 15:41 → OB 15:59
PROVIDERS: PCP Physician Assistant; Visit Provider Obstetrics & Gynecology
DX: O11.3 Pre-existing hypertension with pre-eclampsia, third trimester (principal); Z3A.31 31 weeks gestation of pregnancy
CPT/HCPCS: 59025; 81001; 96360; 96361; 96365; 96367; 99212; G0463; J3411; J3475; J7120

== ENCOUNTER 2024-12-20 09:57 | Outpatient (CLI) | payer BC, SELFPAY ==
--- OUTSIDE RECORDS SUMMARY | 2024-02-08 06:45 | XMS_ITS ---
Author Organization [facility] Address [address] [place] [id number] Care Team Providers Care Health Information Coder Name Role Phone Destiny Seymour Unavailable [phone] Allergies Allergen (clinical drug ingredient) Drug/Non Drug Allergy documented on EMR Reaction Allergy Type Onset Date Status erythromycin Erythromycin Unknown Drug Allergy A ctive Reason For Referral Diagnosis 1 Rheumatoid arthritis , involving unspecified site, unspecified whether rheumatoid factor present (M06.9) Referral Organization [facility] Referring Provider First Name Destiny Referring Provider Last Name Dawn Referring Provider Speciality Physician Aquatics Lifeguard Referred Provider Rheumatology, . Referred Provider Specialty Rheumatology General Notes Destiny Seymour 2023 11:16:04 AM > PT needs an appt with Pepper Bonilla Brynn 02/12/2024 11:44:56 AM > sent referral to Dr. Jacobs via [facility] website Referral Priority Routine REASON FOR VISIT follow up ER, gerd Medications Medication SIG (Take, Route, Frequency, Duration) Notes Start Date End Date Status Omeprazole 40 MG 1 capsule 30 minutes before morning meal Orally Once a day 02/08/2024 Active Slynd 4 MG 1 tablet Orally Once a day for 30 day(s) Active Metoprolol Succinate ER 50 MG take 1 tab let by mouth once daily for 30 days Orally once daily Active Ubrelvy 100 MG 1 tablet may take second dose at least 2 hours after first dose as needed Orally Once a day, prn Active Pbrevjojka-JSZS-Nyjffhho 50-325-40 MG 1 tablet as needed Orally three times a day as needed 05/01/2023 Not-Taking Plaquenil 200 MG 1 tab(s) Orally Two times a day for 30 day(s) Not-Taking Meclizine HCl 25 MG 1 tablet as needed Orally three times a day as needed 05/04/2023 Not-Taking hydroCHLOROthiazide 12.5 MG 1 tablet in the morning Orally once daily 05/01/2023 Not-Taking 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 Tobacco Use: 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 Observation Description Date Smoking Status WARNING: Information temporarily unavailable CURRENT TOBACCO USE: Question Answer Notes Are you a: Smokeless Tobacc o (Vape) Problems Problem Type SNOMED Code ICD Code Onset Dates Problem Status W/U Status Risk Notes Problem [id number] Gastroesophageal reflux disease, unspecified whether esophagitis present (K21.9) Active confirmed Problem [id number] Rheumatoid arthritis, involving unspecified site, unspecified whether rheumatoid factor present (M06.9) Active confirmed Vital Signs Blood pressure systolic 140 mm Hg 02/08/20 24 Blood pressure diastolic 90 mm Hg 024 Heart Rate 69 /min 02/08/2024 Height 66 in 02/08/2024 Weight 191.2 lbs 02/08/2024 BMI 30.86 kg/m2 02/08/2024 Encounters Encounter Location Date Provider Diagnosis [facility] [address] [facility] [address] [place], [place] [id number] 02/08/2024 Destiny Seymour Gastroesophageal ref lux disease, unspecified whether esophagitis present K21.9 and Rheumatoid arthritis, involving unspecified site, unspecified whether rheumatoid factor present M06.9 Assessments Encounter Date Diagnosis (ICD Code) Assessment Notes Treatment Notes Treatment Clinical Notes Section Notes 02/08/2024 Gastroesophageal reflux disease, unspecified whether esophagitis present (ICD-10 - K21.9) Cardiac workup was negative. She will f/u with cardiology but will start on omeprazole as well. 02/08/2024 Rheumatoid arthritis, involving unspecified site, unspecified whether rheumatoid factor present (ICD-10 - M06.9) Patient quit seeing her specialist and the arthritis center and stopped medications. She would like to see a different rhematologist. Plan Of Treatment Medication Medication Name Sig Start Date Stop Date Notes Omeprazole 40 MG 1 capsule 30 minutes before morning meal Orally Once a day 02/08/2024 Treatment Notes Assessment Notes Gastroesophageal reflux dise ase, unspecified whether esophagitis present Cardiac workup was negative. She will f/u with cardiology but will start on omeprazole as well. Rheumatoid arthritis, involv ing unspecified site, unspecified whether rheumatoid factor present Patient quit seeing her specialist and the arthritis center and stopped medications. She would like to see a different rhematologist. Referrals Referral Date Details 02/08/2024 02/08/2024, . Rheuma aishaogy Next Appt Details Follow Up: prn, Reason: Progress Notes * TANK PHILLIPOB:2000 (24 yo F)Acc No.[id number]:02/08/2024 Progress Notes Patient: FILI MONAHAN Provider: ETHEL Valentin :2000 A ge:23 Y S ex:Female Date:02/08/2024 Phone: Address:[address] [place] [address] , [place], [id number] Subjective: * Chief Complaints: * 1 . follow up ER, gerd. * HPI: G astroenterology: The pt is here for a follow up on an [facility] ER visit due to shortness of breath and heart burn. Pt states she has also had dizzy spells off and on over the past 3 days. She was evaluated in the ER and cardiac workup was negative. Her CXR was normal. She was given an inhaler but states the chest pain continues. There is a burning sensation and she feels like something gets stuck in her throat. 23 year old female presents with c/o Acid Reflux. c/o Heartburn. Denies : Nausea. D enies : Vomiting. D enies : Diarrhea. D enies : Fever. * ROS: C ARDIOLOGY: no C hest pain. n o S hortness of breath. ? D ERMATOLOGY: no R donna. n o H katrina. U ROLOGY: no D ifficulty urinating. n o B lood in urine. * Medical History: R hematoid Arthritis, SVT. * Surgical History: R T Hand Cyst Removal 08/2020, Cardiac ablation 11/25/2022. * Family History: M other: alive, diagnosed with Cancer. M aternal Grand Mother: diagnosed with Diabetes, Cancer. 2 brother(s) , 3 sister(s) - healthy. . Mother- Pancreatic Cancer Grandmother- Skin Cancer. * 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: C URRENT TOBACCO USE: Yes A re you a: Smokeless Tobacco (Vape). C affeine: yes, frequency:. Home smoke detector use: yes. Marital Status: Single. Alcohol: yes, Beer- 2-3 rarely. * Medications: T aking Slynd 4 MG Tablet 1 tablet Orally Once a day , Taking Metoprolol Succinate ER 50 MG Tablet Extended Release 24 Hour take 1 tablet by mouth once daily for 30 days Orally once daily , Taking Ubrelvy 100 MG Tablet 1 tablet may take second dose at least 2 hours after first dose as needed Orally Once a day, prn , Not-Taking hydroCHLOROthiazide 12.5 MG Tablet 1 tablet in the morning Orally once daily , Not-Taking Oibjzfxjaj-FJVP-Rdxldogi 50-325-40 MG Tablet 1 tablet as needed Orally three times a day as needed , Not-Taking Plaquenil 200 MG Tablet 1 tab(s) Orally Two times a day , Not-Taking Meclizine HCl 25 MG Tablet 1 tablet as needed Orally three times a day as needed , Discontinued Metaxalone 800 MG Tablet 1 tablet Orally Three times a day, prn , Medication List reviewed and reconciled with the patient * Allergies: E rythromycin. Objective: * Vitals: W t:191.2, Temp:98.6, BP:140/90, HR:69, Nurse:MINERVA, Ht: 66, Repeat BP:120/86, BMI:30.86. * Examination: G eneral Examination: General Appearance: N AD. HEENT: u nremarkable. Oral cavity: n o lesions, mucosa moist and WNL, no erythema. Neck: s upple, no lymphadenopathy. Chest: n ormal shape and expansion. Heart: R SR. Lungs: c lear to auscultation. Abdomen: bowel sounds present, soft and nontender, no organomegaly or masses, no guarding or rigidity. Neurologic Exam: I ntact, gait normal. Skin: n ormal, no rash. Peripheral pulses: n ormal (2+) bilaterally. Extremities: n o leg edema. Assessment: * Assessment: 1. G astroesophageal reflux disease, unspecified whether esophagitis present - K21.9 (Primary)? 2. R heumatoid arthritis, involving unspecified site, unspecified whether rheumatoid factor present - M06.9 Plan: * Treatment: 2. R heumatoid arthritis, involving unspecified site, unspecified whether rheumatoid factor present Notes: Patient quit seeing her specialist and the arthritis center and stopped medications. She would like to see a different rhematologist. Referral To:. Rheumatology Rheumatology Reason: * Follow Up: p rn * Billing Information: * Visit Code: 25808 Office Visit, Est Pt., Level 4. * Procedure Codes: * Electronic signature of ETHEL Edwards on 12/20/2024 at 09:59 AM EDT Sign off status: Pending * Provider: ETHEL Valentin Date: 0 02/08/2024 Generated for Melisa gonzalez/Anel/eTransmitting on: 0 12/20/2024 09:59 AM EDT History and Physical Notes * HPI (History of Present Illness) Category Sub-Category Detail Notes Category Not es Gastroenterology Fever Vomiting Diarrhea Nausea Heartburn Acid Reflux Examination Category Sub-Category Detail Notes Category Not es General Examination HEENT: unremarkable Heart: RSR Lungs: clear to auscultatio n Abdomen: bowel sounds present , soft and nontender, no organomegaly or masses, no guarding or rigidity Extremities: no leg edema General Appearance: NAD Skin: normal, no rash Neurologic Exam: Intact, gait normal Neck: supple, no lymphaden opathy Oral cavity: no lesions, mucosa m oist and WNL, no erythema Peripheral pulses: normal (2+) bilatera lly Chest: normal shape and exp ansion Consultation Request Notes Referral Date Referring Provider Referred Provider Not es 02/08/2024 Destiny Seymour Rheumatology, .
--- OUTSIDE RECORDS SUMMARY | 2024-04-24 07:30 | XMS_ITS ---
Author Organization Bradley Address [address] [facility] [address] [phone] Care Team Providers Care Ext Js Developer Name Role Phone Destiny Seymour Unavailable [phone] Allergies Allergen (clinical drug ingredient) Drug/Non Drug [...] Last Name Dawn Referring Provider Speciality Physician Stem Setter Referred Provider Rheumatology, . Referred Provider Specialty [...] Problem Status W/U Status Risk Notes Problem [id number] Rheumatoid arthritis with positive rheumatoid factor, involving unspecified site (M05.9) Active confirmed Vital Signs Blood pressure systolic 134 mm Hg 04/24/20 24 Blood pressure diastolic 100 mm Hg 024 Heart Rate 85 /min 04/24/2024 Height 66 in 04/24/2024 Weight 187.0 lbs 04/24/2024 BMI 30.18 kg/m2 04/24/2024 Encounters Encounter Location Date Provider Diagnosis [facility] [address] [place], [place] [id number] 04/24/2024 Destiny Seymour Strep pharyngitis J0 2.0 [...] Notes * TANK ROSENOB:2000 (24 yo F)Acc No.[id number]:04/24/2024 Progress Notes Patient: FILI MONAHAN Provider: ETHEL Valentin :2000 A ge:23 Y S ex:Female Date:04/24/2024 Phone: Address:[address] [place] [address] Dr Brad singer [id number] Subjective: * Chief Complaints: * 1 . [...] the morning Orally once daily , Discontinued Jzpyzyxbyq-IHNO-Zkofestp 50-325-40 MG Tablet 1 tablet as needed [...] rn * Billing Information: * Visit Code: 84882 Office Visit, Est Pt., Level 3. * Procedure Codes: 93368 STREP A ASSAY W/OPTIC. Modifiers: QW * Electronic signature of ETHEL Edwards on 12/20/2024 at 10:00 AM EDT Sign off status: Pending * Provider: ETHEL Valentin Date: 1 Generated for Leonori lisa/Fajaseg/eTransmitting on: 0 12/20/2024 10:00 AM EDT History and Physical Notes * [...]
--- OUTSIDE RECORDS SUMMARY | 2024-06-14 09:15 | XMS_ITS ---
Author Organization [place] Address 1210 [facility] [address] [place] [phone] Care Team Providers Care Computer Game Tester Name Role Phone Dawn Destiny Unavailable [phone] Allergies Allergen (clinical drug ingredient) Drug/Non Drug [...] Encounter Location Date Provider Diagnosis Nikolas 1210 [facility] [address] [place] [phone] 06/14/2024 Destiny Seymour Plan Of Treatment No Information Progress Notes * TANK PHILLIPOB:2000 (24 yo F)Acc No.[id number]:06/14/2024 Progress Notes Patient: FILI MONAHAN Provider: ETHEL Valentin :2000 A ge:24 Y S ex:Female Date:06/14/2024 Phone: Address:[address] [place] [address] [id number] Subjective: * Chief Complaints: * 1 . [...] 08/15/2023 Generated for Melisa gonzalez/Anel/Misbahitting on: 0 12/20/2024 09:59 AM EDT History and Physical Notes * HPI (History of Present Illness) Category Sub-Category Detail Notes Category Not es HPI Patient is here today for Pt is here toda y for a check up
--- OUTSIDE RECORDS SUMMARY | 2024-12-20 09:59 | XMS_ITS | Clinical Summary ---
Author Organization [facility] [place] Address [address] [facility] [address] [place] [address] Phone Care Team Providers Care Post Closer Name Role Phone Unavailable Primary Care Provider Unavailabl e Allergies No known active allergies Active Problems Problem Noted Date Diagnosed Date S/P RF ablation operation for arrhythmia 023 Overview (03/02/2023): EPS, SVT Ablation 11/25/22-Dr. Demetrio Pearson @ [facility] SVT (supraventricular tachycardia) Surgical History Surgery Date Site/Laterality Comments CYST REMOVAL 08/31/2020 - 09/30/2020 Right R Hand Cyst Removal ABLATION OF DYSRHYTHMIC FOCUS 11/25/2022 EPS, SVT Ablation-Dr. Demetrio Pearson @ [facility] Medical History Medical History Date [...]
--- OUTSIDE RECORDS SUMMARY | 2024-12-20 09:59 | XMS_ITS | Clinical Summary ---
Author Organization [facility] Address [address] [place] [address] Care Team Providers Care Merchandise Flow Team Leader Name Role Phone Leah Jasso APRN Primary Care Provider [phone] Encounters Date Type Department Care Team Description 09/30/2024 Telephone [place] [facility] [address], 1[address] [place] [address] Neurology, Physician, from Last 3 [...] 19+ 3-dose series) 2020 [facility]Y-Pap Smear 2022 [id number] Vaccine (1 - 20 24-25 season) 2024 [...] complete this topic Insurance WANG Care Teams Merchandise Flow Team Leader Relationship Specialty Start Date End Date Leah Jasso APRN [address] [facility] [address] [place] [address] PCP - General 11/13/20
--- OUTSIDE RECORDS SUMMARY | 2024-12-20 09:59 | XMS_ITS | Patient Health Record ---
Author Organization [facility] Address [address] [place] [id number] Care Team Providers Care Secondary Spanish Teacher Name Role Phone Destiny Seymour Unavailable [phone] Allergies Allergen (clinical drug ingredient) Drug/Non Drug [...] Last Name Dawn Referring Provider Speciality Physician Editor Publications Referred Provider Rheumatology, . Referred Provider Specialty Rheumatology General Notes Destiny Seymour 2023 11:16:04 AM > PT needs an appt with Pepper Bonilla Brynn 02/12/2024 11:44:56 AM > sent referral to Dr. Jacobs via [facility] website Referral Priority Routine Diagnosis 1 Rheumatoid arthritis with positive rheumatoid factor, involving unspecified site (M05.9) Referral Organization [facility] Referring Provider First Name Destiny Referring Provider Last Name Dawn Referring Provider Speciality Physician Editor Publications Referred Provider Rheumatology, . Referred Provider Specialty [...] Problem Status W/U Status Risk Notes Problem 8298675 SVT (supraventricular tachycardia) (I47.1) Active confirmed Problem 96902587 Paresthesia (R20.2) Active confirmed Problem 288617900 Depression with anxiety (F41.8) Active confirmed Problem 876241764 Thyroid nodule (E04.1) Active confirmed Problem 115342908 Panic attacks (F41.0) Active confirmed Problem 366976114 Intractable migraine with aura without status migrainosus (G43.119) Active confirmed Problem 304406509 Cardiac arrhythm ia, unspecified cardiac arrhythmia type (I49.9) Active confirmed Problem 052952245 Intractable migraine without status migrainosus, unspecified migraine type (G43.919) Active confirmed Problem 9552447 Thyromegaly (E01.0) Active confirmed Problem 37914979 Migraine syndrom e (G43.909) Active confirmed Problem 516570218 Gastroesophageal reflux disease, unspecified whether esophagitis present (K21.9) Active confirmed Problem 08586930 Rheumatoid arthritis, involving unspecified site, unspecified whether rheumatoid factor present (M06.9) Active confirmed Problem 942144543 Rheumatoid arthritis with positive rheumatoid factor, involving unspecified site (M05.9) Active confirmed Problem 32329308 Vaping nicotine dependence, non-tobacco product (F17.200) Active confirmed Problem 19910981747752 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) Active confirmed Problem 867428084 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) Active confirmed Vital Signs Heart Rate 85 /min 04/24/2024 Blood pressure diastolic 100 mm Hg 04/24/2024 Height 66 in 04/24/2024 Blood pressure systolic 134 mm Hg 04/24/2024 Weight 187.0 lbs 04/24/2024 BMI 30.18 kg/m2 04/24/2024 Encounters Encounter Location Date Provider Diagnosis [facility] [address] [place] [id number] 02/08/2024 Destiny Seymour Gastroesophageal ref lux disease, unspecified whether esophagitis present K21.9 and Rheumatoid arthritis, involving unspecified site, unspecified whether rheumatoid factor present M06.9 [facility] [address] [place] [id number] 04/24/2024 Destiny Seymour Strep pharyngitis J0 2.0 and Rheumatoid arthritis with positive rheumatoid factor, involving unspecified site M05.9 [facility] [address] [place] [id number] 08/01/2024 Destiny Seymour Assessments Encounter Date Diagnosis [...] WANG [employer] [address] [place] [address] [id number] 002 FILI PHILLIP Self - patient is [...]
[2024-12-20 10:22] VITALS: BP 140/88; PULSE 93; RESP 18; TEMP 36.6; O2SAT 97; BMI 33.0
[2024-12-20 10:28] LABS: Microscopic, Urine URINE MICROSCOPIC (MICROSCOPIC)
[2024-12-20 10:33] LABS: Appearance,Urine CLEAR (Clear); Bilirubin,Urine Negative (Negative); Blood, Urine TRACE-I (Negative); Color,Urine YELLOW (Yellow); Glucose,Urine (UA) TRACE (Negative); Ketones,Urine TRACE (Negative); Leukocyte Esterase,Urine 2+ (Negative); Nitrate,Urine Negative (Negative); Protein,Urine Negative (Negative); Urobilinogen,Urine 0.2 EU/dl (0.2)
[2024-12-20 11:47] LABS: Bacteria,Urine 3+ /lpf; Squamous Epithelial Cell,Urine 50-100 #/hpf (0-5); WBC,Urine 20-50 #/hpf (0-3)
== END 2024-12-20 10:56 | disposition home or self-care (01) ==
LOC: OBOUT 09:58 → OB 10:00
PROVIDERS: PCP Physician Assistant; Visit Provider Obstetrics & Gynecology
DX: O11.3 Pre-existing hypertension with pre-eclampsia, third trimester (principal); Z3A.31 31 weeks gestation of pregnancy
CPT/HCPCS: 59025; 81001; 87086; 99212; G0463

== ENCOUNTER 2024-12-24 12:55 | Outpatient (CLI) | payer BC, SELFPAY ==
--- OUTSIDE RECORDS SUMMARY | 2024-02-08 06:45 | XMS_ITS ---
Author Organization [facility] Address [address] [place] [phone] Care Team Providers Care Process Lead Name Role Phone Destiny Seymour Unavailable [phone] Allergies Allergen (clinical drug ingredient) Drug/Non Drug Allergy documented on EMR Reaction Allergy Type Onset Date Status erythromycin Erythromycin Unknown Drug Allergy A ctive Reason For Referral Diagnosis 1 Rheumatoid arthritis , involving unspecified site, unspecified whether rheumatoid factor present (M06.9) Referral Organization [facility] Referring Provider First Name Destiny Referring Provider Last Name Dawn Referring Provider Speciality Physician Lead Network Architect Referred Provider Rheumatology, . Referred Provider Specialty Rheumatology General Notes Destiny Seymour 2023 11:16:04 AM > PT needs an appt with Pepper Bonilla Brynn 02/12/2024 11:44:56 AM > sent referral to Dr. Jacobs via [facility] website Referral Priority Routine REASON FOR [...] needed Orally Once a day, prn Active Igyvgdhktn-EMLE-Zewcpiqw 50-325-40 MG 1 tablet as needed Orally [...] Problem Status W/U Status Risk Notes Problem 609861168 Gastroesophageal reflux disease, unspecified whether esophagitis present (K21.9) Active confirmed Problem 99996534 Rheumatoid arthritis, involving unspecified site, unspecified whether rheumatoid factor present (M06.9) Active confirmed Vital Signs Blood pressure systolic 140 mm Hg 02/08/20 24 Blood pressure diastolic 90 mm Hg 024 Heart Rate 69 /min 02/08/2024 Height 66 in 02/08/2024 Weight 191.2 lbs 02/08/2024 BMI 30.86 kg/m2 02/08/2024 Encounters Encounter Location Date Provider Diagnosis [facility] [address] [facility] [address] [place], [place] [phone] 02/08/2024 Destiny Seymour Gastroesophageal ref lux disease, [...] Follow Up: prn, Reason: Progress Notes * ATNK PHILLIPOB:2000 (24 yo F)Acc No.[id number]:02/08/2024 Progress Notes Patient: FILI MONAHAN Provider: ETHEL Valentin :2000 A ge:23 Y S ex:Female Date:02/08/2024 Phone: Address:[address] [place] [address] , [place], [id number] Subjective: * Chief Complaints: * 1 . follow up ER, gerd. * HPI: G astroenterology: The pt is here for a follow up on an [facility] ER visit due to shortness of [...] the morning Orally once daily , Not-Taking Dzcflchgmg-TWQX-Ypprhdnj 50-325-40 MG Tablet 1 tablet as needed [...] rn * Billing Information: * Visit Code: 80985 Office Visit, Est Pt., Level 4. * Procedure Codes: * Electronic signature of ETHEL Edwards on 12/24/2024 at 01:01 PM EDT Sign off status: Pending * Provider: ETHEL Valentin Date: 02/08/2024 Generated for Melisa gonzalez/Anel/eTransmitting on: 12/24/2024 01:01 PM EDT History and Physical Notes * [...]
--- OUTSIDE RECORDS SUMMARY | 2024-04-24 07:30 | XMS_ITS ---
Author Organization [facility] Address [address] [facility] [address] [place] [phone] Care Team Providers Care Sales Representative Livestock Name Role Phone Destiny Seymour Unavailable [phone] Allergies Allergen (clinical drug ingredient) Drug/Non Drug [...] Last Name Dawn Referring Provider Speciality Physician Court Abstractor Referred Provider Rheumatology, . Referred Provider Specialty [...] Problem Status W/U Status Risk Notes Problem [id number] Rheumatoid arthritis with positive rheumatoid factor, involving unspecified site (M05.9) Active confirmed Vital Signs Blood pressure systolic 134 mm Hg 04/24/20 24 Blood pressure diastolic 100 mm Hg 024 Heart Rate 85 /min 04/24/2024 Height 66 in 04/24/2024 Weight 187.0 lbs 04/24/2024 BMI 30.18 kg/m2 04/24/2024 Encounters Encounter Location Date Provider Diagnosis [facility] [address] [place], [place] [phone] 04/24/2024 Destiny Seymour Strep pharyngitis J0 2.0 [...] Notes * TANK ROSENOB:2000 (24 yo F)Acc No.[id number]:04/24/2024 Progress Notes Patient: FILI MONAHAN Provider: ETHEL Valentin :2000 A ge:23 Y S ex:Female Date:04/24/2024 Phone: Address:[address] [place] [address] Dr Brad singer [id number] Subjective: * Chief Complaints: * 1 . [...] the morning Orally once daily , Discontinued Lxmvuftkzj-VZTZ-Jrtbetik 50-325-40 MG Tablet 1 tablet as needed [...] rn * Billing Information: * Visit Code: 44438 Office Visit, Est Pt., Level 3. * Procedure Codes: 60033 STREP A ASSAY W/OPTIC. Modifiers: QW * Electronic signature of ETHEL Edwards on 12/24/2024 at 01:01 PM EDT Sign off status: Pending * Provider: ETHEL Valentin Date: 1 Generated for Leonori lisa/Fajaseg/eTransmitting on: 0 12/24/2024 01:01 PM EDT History and Physical [...]
--- OUTSIDE RECORDS SUMMARY | 2024-06-14 09:15 | XMS_ITS ---
Author Organization Bradley Address [address] [facility] [address] [place] [phone] Care Team Providers Care Director Strategy Name Role Phone Dawn Destiny Unavailable [phone] Allergies Allergen (clinical drug ingredient) Drug/Non Drug [...] Encounter Location Date Provider Diagnosis [facility] [address] [place] [phone] 06/14/2024 Destiny Seymour Plan Of Treatment No Information Progress Notes * TANK PHILLIPOB:2000 (24 yo F)Acc No.[id number]:06/14/2024 Progress Notes Patient: FILI MONAHAN Provider: ETHEL Valentin :2000 A ge:24 Y S ex:Female Date:06/14/2024 Phone: Address:[address] [place] [address] [address] [place] Espinal-[id number] Subjective: * Chief Complaints: * 1 . [...] * Vitals: Assessment: Plan: * Treatment: * Billing Information: * Visit Code: * Procedure Codes: * Electronic signature of ETHEL Edwards on 12/24/2024 at 01:00 PM EDT Sign off status: Pending * Provider: ETHEL Valentin Date: 1 08/15/2023 Generated for Melisa gonzalez/Anel/Misbahitting on: 0 12/24/2024 01:00 PM EDT History and Physical Notes * HPI (History of Present Illness) Category Sub-Category Detail Notes Category Not es HPI Patient is here today for Pt is here toda y for a check up
--- NOTE | 2024-12-24 13:00 | US_ITS ---
PROCEDURE: US OB BIOPHYSICAL PROFILE CLINICAL INDICATION: needs for early Preeclampsia COMPARISON: US US OB <= 14 WEEKS FETUS from 06/24/2024 US US OB /MATERNAL DETAIL from 09/26/2024 US OB FOLLOW UP from 10/24/2024 US OB TRANSVAGINAL from 10/24/2024 US OB FOLLOW UP from 11/21/2024 US OB BIOPHYSICAL PROFILE from 12/10/2024 US OB BIOPHYSICAL PROFILE from 12/17/2024 FINDINGS: Transabdominal sonographic images of the uterus were obtained. From her established due date she is 32weeks 2days. The following parameters are obtained: Viable Fetus in the cephalic presentation with an anterior placenta grade 2. The cervix measures 2.91 cm Measurements: heart Rate = 146bpm Amniotic fluid index: 11.72cm, MVP 5.02 cm Qualitative AFV:2 Breathing movements: 2 Gross Body Movements: 2 Tone: 2 Biophysical profile score: 8 No obvious anomalies evident.Kidneys, profile, stomach, bladder, four-chamber heart, three-vessel cord appear normal. IMPRESSION: 1. Viable fetus in the cephalic presentation with an anterior placenta grade 2. 2. The fluid is within normal limits with an amniotic fluid index 11.72 cm, MVP 5.02 cm. 3. Biophysical profile is 8/8 with good breathing movement and movement seen. 4. Limited anatomical scan appears normal. Dictated by: Oliverio Amanda MD 12/25/2024 01:10 Oliverio Amanda MD in [facility] 12/25/2024 01:10
--- OUTSIDE RECORDS SUMMARY | 2024-12-24 13:01 | XMS_ITS | Clinical Summary ---
Author Organization [facility] Address [address] [place] [address] Care Team Providers Care Comic Writer Name Role Phone Leah Jasso APRN Primary Care Provider [phone] Encounters Date Type Department Care Team Description 09/[facility] [address], [address] [place] [address] Neurology, Physician, from Last 3 [...] 19+ 3-dose series) 2020 UKY-Pap Smear 2022 [id number] Vaccine (1 - 20 24-25 season) 2024 [...] complete this topic Insurance WANG Care Teams Comic Writer Relationship Specialty Start Date End Date Leah Jasso APRN [address] [facility] [address] [place] [address] PCP - General 11/13/20
--- OUTSIDE RECORDS SUMMARY | 2024-12-24 13:01 | XMS_ITS | Clinical Summary ---
Author Organization [facility] [place] Address [address] [place] [address] Phone Care Team Providers Care Straddle Bug Name Role Phone Unavailable Primary Care Provider Unavailabl e Allergies No known active allergies Active Problems Problem Noted Date Diagnosed Date S/P RF ablation operation for arrhythmia 023 Overview (03/02/2023): EPS, SVT Ablation 11/25/22-Dr. Demetrio Pearson @ [facility] SVT (supraventricular tachycardia) Surgical History Surgery Date Site/Laterality Comments CYST REMOVAL 08/31/2020 - 09/30/2020 Right R Hand Cyst Removal ABLATION OF DYSRHYTHMIC FOCUS 11/25/2022 EPS, SVT Ablation-Dr. Demetrio Pearson @ [facility] Medical History Medical History Date [...]
--- OUTSIDE RECORDS SUMMARY | 2024-12-24 13:01 | XMS_ITS | Patient Health Record ---
Author Organization [facility] Address [address] [place] [id number] Care Team Providers Care Reforestation Worker Name Role Phone Destiny Seymour Unavailable [phone] Allergies Allergen (clinical drug ingredient) Drug/Non Drug [...] Last Name Dawn Referring Provider Speciality Physician Carburizer Referred Provider Rheumatology, . Referred Provider Specialty Rheumatology General Notes Destiny Seymour 2023 11:16:04 AM > PT needs an appt with Pepper Bonilla Brynn 02/12/2024 11:44:56 AM > sent referral to Dr. Jacobs via [facility] website Referral Priority Routine Diagnosis 1 Rheumatoid arthritis with positive rheumatoid factor, involving unspecified site (M05.9) Referral Organization [facility] Referring Provider First Name Destiny Referring Provider Last Name Dawn Referring Provider Speciality Physician Carburizer Referred Provider Rheumatology, . Referred Provider Specialty [...] Problem Status W/U Status Risk Notes Problem 5090287 SVT (supraventricular tachycardia) (I47.1) Active confirmed Problem 65850063 Paresthesia (R20.2) Active confirmed Problem 488170958 Depression with anxiety (F41.8) Active confirmed Problem 746975906 Thyroid nodule (E04.1) Active confirmed Problem 682208659 Panic attacks (F41.0) Active confirmed Problem 038226472 Intractable migraine with aura without status migrainosus (G43.119) Active confirmed Problem 345501520 Cardiac arrhythm ia, unspecified cardiac arrhythmia type (I49.9) Active confirmed Problem 082423910 Intractable migraine without status migrainosus, unspecified migraine type (G43.919) Active confirmed Problem 8248810 Thyromegaly (E01.0) Active confirmed Problem 65220361 Migraine syndrom e (G43.909) Active confirmed Problem 677210555 Gastroesophageal reflux disease, unspecified whether esophagitis present (K21.9) Active confirmed Problem 04411158 Rheumatoid arthritis, involving unspecified site, unspecified whether rheumatoid factor present (M06.9) Active confirmed Problem 450707540 Rheumatoid arthritis with positive rheumatoid factor, involving unspecified site (M05.9) Active confirmed Problem 83551842 Vaping nicotine dependence, non-tobacco product (F17.200) Active confirmed Problem 06926229291177 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) Active confirmed Problem 929849992 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) Active confirmed Vital Signs Heart Rate 85 /min 04/24/2024 Blood pressure diastolic 100 mm Hg 04/24/2024 Height 66 in 04/24/2024 Blood pressure systolic 134 mm Hg 04/24/2024 Weight 187.0 lbs 04/24/2024 BMI 30.18 kg/m2 04/24/2024 Encounters Encounter Location Date Provider Diagnosis [facility] [address] [place] [id number] 02/08/2024 Destiny Seymour Gastroesophageal ref lux disease, unspecified whether esophagitis present K21.9 and Rheumatoid arthritis, involving unspecified site, unspecified whether rheumatoid factor present M06.9 [facility] [address] [place] [id number] 04/24/2024 Destiny Seymour Strep pharyngitis J0 2.0 and Rheumatoid arthritis with positive rheumatoid factor, involving unspecified site M05.9 [facility] [address] [place] [id number] 08/01/2024 Destiny Seymour Assessments Encounter Date Diagnosis [...] WANG [employer] [address] [place] [address] [id number] 002 FILI PHILLIP Self - patient is [...]
[2024-12-24 16:27] LABS: Basophils % 0.1 % (0.1-2.0); Eosinophils % 0.4 % (0.1-12.0); Hematocrit 32.4 % (37.0-47.0); Immature Granulocytes # 0.03 10^3uL; Immature Granulocytes % 0.3 %; Lymphocytes # 1.2 K/mm3 (0.7-4.5); Lymphocytes % 12.5 % (10-50); Mean Corpuscular Hemoglobin 30.6 pg (27.0-31.2); Monocytes # 0.5 K/mm3 (0.1-1.0); Monocytes % 4.8 % (1.7-9.3); Neutrophils % 81.9 % (37.0-80.0); Nucleated Red Blood Cells # 0 10^3/uL; Nucleated Red Blood Cells % 0 %; Platelet Count 249 K/mm3 (142-424); Red Cell Distribution Width 12.9 % (11.5-17.5); White Blood Count 9.8 K/mm3 (4.8-10.8)
[2024-12-24 16:54] LABS: Albumin Level 3.6 g/dl (3.5-5.0); Chloride 103 mmol/L (98-107); Sodium 136 mmol/L (136-145)
[2024-12-24 16:55] LABS: Potassium 3.9 mmoL/L (3.5-5.1)
[2024-12-24 16:57] LABS: Anion Gap 14.9 mEq/L (5-15); Blood Urea Nitrogen 5 mg/dl (7-17); Carbon Dioxide 22 mmol/L (22.0-30.0); Estimated Glomerular Filt Rate 153 ml/min (>60); GFR (African American) 185 ML/MIN (>60)
[2024-12-24 16:58] LABS: Alanine Aminotransferase 13 U/L (12-78); Albumin/Globulin Ratio 1.3 (1.1-1.8); Alkaline Phosphatase 83 U/L (38-126); Aspartate Amino Transferase 18 U/L (14-36); Bilirubin,Total 0.2 mg/dl (0.2-1.3); Calcium 9.5 mg/dl (8.4-10.2); Globulin 2.8 g/dL (1.3-3.2); Glucose 104 mg/dl (74-100); Total Protein,Serum 6.4 g/dl (6.3-8.2)
== END 2024-12-24 23:59 | disposition home or self-care (01) ==
PROVIDERS: PCP Physician Assistant; Visit Provider Obstetrics & Gynecology
DX: O36.8393 Maternal care for abnormalities of the fetal heart rate or rhythm, unspecified trimester, fetus 3 (principal); O11.3 Pre-existing hypertension with pre-eclampsia, third trimester; Z3A.32 32 weeks gestation of pregnancy
CPT/HCPCS: 36415; 76819; 80053; 85025

== ENCOUNTER 2024-12-27 08:57 | Outpatient (CLI) | payer BC, SELFPAY ==
--- OUTSIDE RECORDS SUMMARY | 2024-02-08 06:45 | XMS_ITS ---
Author Organization [facility] Address [address] [place] [phone] Care Team Providers Care Sheep Farm Worker Name Role Phone Destiny Seymour Unavailable [phone] Allergies Allergen (clinical drug ingredient) Drug/Non Drug Allergy documented on EMR Reaction Allergy Type Onset Date Status erythromycin Erythromycin Unknown Drug Allergy A ctive Reason For Referral Diagnosis 1 Rheumatoid arthritis , involving unspecified site, unspecified whether rheumatoid factor present (M06.9) Referral Organization [facility] Referring Provider First Name Destiny Referring Provider Last Name Dawn Referring Provider Speciality Physician Art Dealer Referred Provider Rheumatology, . Referred Provider Specialty [...] needed Orally Once a day, prn Active Vdwduofevn-DLIG-Ttqaakhd 50-325-40 MG 1 tablet as needed Orally [...] Status Risk Notes Problem Gastroesophageal reflux disease (614532962) Gastroesophageal reflux disease, unspecified whether esophagitis present (K21.9) Active confirmed Problem Rheumatoid arthritis (95220988) Rheumatoid arthritis, involving unspecified site, unspecified whether rheumatoid factor present (M06.9) Active confirmed Vital Signs Blood pressure systolic 140 mm Hg 02/08/20 24 Blood pressure diastolic 90 mm Hg 024 Heart Rate 69 /min 02/08/2024 Height 66 in 02/08/2024 Weight 191.2 lbs 02/08/2024 BMI 30.86 kg/m2 02/08/2024 Encounters Encounter Location Date Provider Diagnosis [facility] [address] [facility] [address] [place], [place] [phone] 02/08/2024 Destiny Dawn Gastroesophageal ref lux disease, [...] Notes * TANK PHILLIPOB:2000 (24 yo F)Acc No.[id number]:02/08/2024 Progress Notes Patient: FILI MONAHAN Provider: ETHEL Valentin :2000 A ge:23 Y S ex:Female Date:02/08/2024 Phone: Address:[address] [place] [address] , [place], [id number] Subjective: * Chief Complaints: * 1 . follow up ER, gerd. * HPI: G astroenterology: The pt is here for a follow up on an [facility] ER visit due to shortness of breath [...] the morning Orally once daily , Not-Taking Dbwvlifpfm-AANX-Scwykjjb 50-325-40 MG Tablet 1 tablet as needed [...] * Images: Billing Information: * Visit Code: 66138 Office Visit, Est Pt., Level 4. * Procedure Codes: * Electronic signature of ETHEL Edwards on 12/27/2024 at 09:00 AM EDT Sign off status: Pending * Provider: ETHEL Valentin Date: 0 02/08/2024 Generated for Printi ng/Fajaseg/eTransmitting on: 0 12/27/2024 09:00 AM EDT History and Physical Notes * [...]
--- OUTSIDE RECORDS SUMMARY | 2024-04-24 07:30 | XMS_ITS ---
Author Organization Bradley Address [address] [facility] [address] [id number] Care Team Providers Care Grinding Supervisor Name Role Phone Destiny Seymour Unavailable [phone] Allergies Allergen (clinical drug ingredient) Drug/Non Drug [...] Last Name Dawn Referring Provider Speciality Physician Credit Collections Manager Referred Provider Rheumatology, . Referred Provider [...] 04/24/2024 Encounters Encounter Location Date Provider Diagnosis [facility] [address] [place], [place] [id number] 04/24/2024 Destiny Seymour Strep pharyngitis J0 2.0 [...] Notes * TANK ROSENOB:2000 (24 yo F)Acc No.[id number]:04/24/2024 Progress Notes Patient: FILI MONAHAN Provider: ETHEL Valentin :2000 A ge:23 Y S ex:Female Date:04/24/2024 Phone: Address:[address] [place] [address] Brad Ayon enmanuel, [id number] Subjective: * Chief Complaints: * 1 . [...] the morning Orally once daily , Discontinued Yntzmfuexj-FRPA-Piemfred 50-325-40 MG Tablet 1 tablet as needed [...] * Images: Billing Information: * Visit Code: 79805 Office Visit, Est Pt., Level 3. * Procedure Codes: 29809 STREP A ASSAY W/OPTIC. Modifiers: QW * Electronic signature of ETHEL Edwards on 12/27/2024 at 09:00 AM EDT Sign off status: Pending * Provider: ETHEL Valentin Date: 1 Generated for Melisa gonzalez/Anel/Misbahitting on: 0 12/27/2024 09:00 AM EDT History [...]
--- OUTSIDE RECORDS SUMMARY | 2024-06-14 09:15 | XMS_ITS ---
Author Organization Bradley Address 1210 [facility] [address] [place] [phone] Care Team Providers Care Shirt Finisher Name Role Phone Dawn Destiny Unavailable [phone] Allergies Allergen (clinical drug ingredient) Drug/Non Drug [...] Encounter Location Date Provider Diagnosis [facility] [address] [place] [phone] 06/14/2024 Destiny Seymour Plan Of Treatment No Information Progress Notes * TANK PHILLIPOB:2000 (24 yo F)Acc No.[id number]:06/14/2024 Progress Notes Patient: FILI MONAHAN Provider: ETHEL Valentin :2000 A ge:24 Y S ex:Female Date:06/14/2024 Phone: Address:[address] [place] [address] [address] [place] [id number] Subjective: * Chief Complaints: * 1 . [...] 08/15/2023 Generated for Melisa gonzalez/Anel/Misbahitting on: 0 12/27/2024 09:00 AM EDT History and Physical Notes * HPI (History of Present Illness) Category Sub-Category Detail Notes Category Not es HPI Patient is here today for Pt is here toda y for a check up
--- OUTSIDE RECORDS SUMMARY | 2024-12-27 09:00 | XMS_ITS | Clinical Summary ---
Author Organization [facility] [place] Address [address] [place] [address] Phone Care Team Providers Care Logging Engineer Name Role Phone Unavailable Primary Care Provider Unavailabl e Allergies No known active allergies Active Problems Problem Noted Date Diagnosed Date S/P RF ablation operation for arrhythmia 023 Overview (03/02/2023): EPS, SVT Ablation 11/25/22-Dr. Demetrio Pearson @ [facility] SVT (supraventricular tachycardia) Surgical History Surgery Date Site/Laterality Comments CYST REMOVAL 08/31/2020 - 09/30/2020 Right R Hand Cyst Removal ABLATION OF DYSRHYTHMIC FOCUS 11/25/2022 EPS, SVT Ablation-Dr. Demetrio Pearson @ [facility] Medical History Medical History Date Comments [...]
--- OUTSIDE RECORDS SUMMARY | 2024-12-27 09:00 | XMS_ITS | Clinical Summary ---
Author Organization [facility] Address [address] [place] [address] Care Team Providers Care Trailer Body Assembler Name Role Phone Leah Jasso APRN Primary Care Provider [phone] Encounters Date Type Department Care Team Description 09/30/2024 [facility]phone [facility] [address], [address] [place] [address] Neurology, Physician, from Last 3 [...] 19+ 3-dose series) 2020 UKY-Pap Smear 2022 [id number] Vaccine (1 - 20 24-25 season) 2024 [...] complete this topic Insurance WANG Care Teams Trailer Body Assembler Relationship Specialty Start Date End Date Leah Jasso APRN [address] [facility] [address] [place] [address] PCP - General 11/13/20
--- OUTSIDE RECORDS SUMMARY | 2024-12-27 09:00 | XMS_ITS | Patient Health Record ---
Author Organization [facility] Address [address] [place] [id number] Care Team Providers Care Patrol Inspector Name Role Phone Destiny Seymour Unavailable [phone] Allergies Allergen (clinical drug ingredient) Drug/Non Drug [...] Last Name Dawn Referring Provider Speciality Physician Front Desk Team Member Referred Provider Rheumatology, . Referred Provider Specialty Rheumatology General Notes Destiny Seymour 2023 11:16:04 AM > PT needs an appt with Pepper Bonilla Brynn 02/12/2024 11:44:56 AM > sent referral to Dr. Jacobs via [facility] website Referral Priority Routine Diagnosis 1 Rheumatoid arthritis with positive rheumatoid factor, involving unspecified site (M05.9) Referral Organization [facility] Referring Provider First Name Destiny Referring Provider Last Name Dawn Referring Provider Speciality Physician Front Desk Team Member Referred Provider Rheumatology, . Referred Provider Specialty [...] day; Duration: 10 day(s) 04/24/2024 Activ e Omeprazole 40 MG 1 capsule 30 minutes [...] Problem Status W/U Status Risk Notes Problem Supraventricular tachycardia (4982178) SVT (supraventricular tachycardia) (I47.1) Active confirmed Problem Paresthesia (03963323) Paresthesia (R20.2) Active confirmed Problem Mixed anxiety and depressive disorder (915169704) Depression with anxiety (F41.8) Active confirmed Problem Thyroid nodule (586998067) Thyroid nodule (E04.1) Active confirmed Problem Panic disorder (374878868) Panic attacks (F41.0) Active confirmed Problem Refractory migraine with aura (833763297) Intractable migraine with aura without status migrainosus (G43.119) Active confirmed Problem Cardiac arrhythmia (803578213) Cardiac arrhythmia, unspecified cardiac arrhythmia type (I49.9) Active confirmed Problem Refractory migraine (868468768) Intractable migraine without status migrainosus, unspecified migraine type (G43.919) Active confirmed Problem Thyromegaly (6677953) Thyromegaly (E01.0) Active confirmed Problem Migraine (75137691) Migraine syn drome (G43.909) Active confirmed Problem Gastroesophageal reflux disease (311841842) Gastroesophageal reflux disease, unspecified whether esophagitis present (K21.9) Active confirmed Problem Rheumatoid arthritis (43895101) Rheumatoid arthritis, involving unspecified site, unspecified whether rheumatoid factor present (M06.9) Active confirmed Problem Rheumatoid arthritis (73217981) Rheumatoid arthritis with positive rheumatoid factor, involving unspecified site (M05.9) Active confirmed Problem Tobacco user (559702735) Vaping nicotine dependence, non-tobacco product (F17.200) Active confirmed Problem Drug-induced insomnia (57057288214378) 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) Active confirmed Problem Compression of brain (65553775) 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) Active confirmed Vital Signs Heart Rate 85 /min 04/24/2024 Blood pressure diastolic 100 mm Hg 04/24/2024 Height 66 in 04/24/2024 Blood pressure systolic 134 mm Hg 04/24/2024 Weight 187.0 lbs 04/24/2024 BMI 30.18 kg/m2 04/24/2024 Encounters Encounter [facility] Date [facility] [address] [place] [id number] 02/08/2024 Destiny Seymour Gastroesophageal ref lux disease, unspecified whether esophagitis present K21.9 and Rheumatoid arthritis, involving unspecified site, unspecified whether rheumatoid factor present M06.9 [facility] [address] [place] [id number] 04/24/2024 Destiny Seymour Strep pharyngitis J0 2.0 and Rheumatoid arthritis with positive rheumatoid factor, involving unspecified site M05.9 [facility] [address] [place] [id number] 08/01/2024 Destiny Seymour Assessments Encounter Date Diagnosis [...] Coverage Start Date Coverage End Date WANG [employer]UE [employer] [address] [place] [address] [id number] 002 FILI PHILLIP Self - patient is [...]
[2024-12-27 09:05] VITALS: BP 141/87; PULSE 110; RESP 19; TEMP 36.8; O2SAT 96; BMI 33.7
[2024-12-27 09:20] VITALS: BP 134/83; PULSE 101
[2024-12-27 09:23] LABS: Microscopic, Urine URINE MICROSCOPIC (MICROSCOPIC)
[2024-12-27 09:25] LABS: Appearance,Urine SL CLOUDY (Clear); Bilirubin,Urine Negative (Negative); Blood, Urine 2+ (Negative); Color,Urine YELLOW (Yellow); Glucose,Urine (UA) Negative (Negative); Ketones,Urine Negative (Negative); Leukocyte Esterase,Urine 2+ (Negative); Nitrate,Urine Negative (Negative); PH,Urine 6.5 (5.0-8.5); Protein,Urine Negative (Negative); Specific Gravity, Urine <= 1.005 (1.005-1.030); Urobilinogen,Urine 0.2 EU/dl (0.2)
[2024-12-27 09:35] VITALS: BP 133/87; PULSE 99
[2024-12-27 09:36] LABS: Bacteria,Urine 2+ /lpf
[2024-12-27 09:50] VITALS: BP 137/89; PULSE 98
== END 2024-12-27 10:12 | disposition home or self-care (01) ==
LOC: OBOUT 08:58 → OB 08:59
PROVIDERS: PCP Physician Assistant; Visit Provider Obstetrics & Gynecology
DX: O11.3 Pre-existing hypertension with pre-eclampsia, third trimester (principal); O36.8330 Maternal care for abnormalities of the fetal heart rate or rhythm, third trimester, not applicable or unspecified; Z3A.32 32 weeks gestation of pregnancy
CPT/HCPCS: 59025; 81001; 87086; 99212; G0463

== ENCOUNTER 2024-12-28 23:21 | Outpatient (CLI) | payer BC, SELFPAY ==
--- OUTSIDE RECORDS SUMMARY | 2024-02-08 06:45 | XMS_ITS ---
Author Organization [facility] Address [address] [place] [phone] Care Team Providers Care Applications Engineer Name Role Phone Destiny Seymour Unavailable [phone] Allergies Allergen (clinical drug ingredient) Drug/Non Drug Allergy documented on EMR Reaction Allergy Type Onset Date Status erythromycin Erythromycin Unknown Drug Allergy A ctive Reason For Referral Diagnosis 1 Rheumatoid arthritis , involving unspecified site, unspecified whether rheumatoid factor present (M06.9) Referral Organization [facility] Referring Provider First Name Destiny Referring Provider Last Name Dawn Referring Provider Speciality Physician Reading Professor Referred Provider Rheumatology, . Referred Provider Specialty Rheumatology General Notes Destiny Seymour 2023 11:16:04 AM > PT needs an appt with Pepper Bonilla Brynn 02/12/2024 11:44:56 AM > sent referral to Dr. Jacobs via [facility] website Referral Priority Routine REASON FOR VISIT [...] needed Orally Once a day, prn Active Zmerbtflgv-ORMW-Deyumhhu 50-325-40 MG 1 tablet as needed Orally [...] Status Risk Notes Problem Gastroesophageal reflux disease (283211747) Gastroesophageal reflux disease, unspecified whether esophagitis present (K21.9) Active confirmed Problem Rheumatoid arthritis (88017984) Rheumatoid arthritis, involving unspecified site, unspecified whether rheumatoid factor present (M06.9) Active confirmed Vital Signs Weight 191.2 lbs 02/08/2024 Blood pressure systolic 140 mm Hg 02/08/20 24 Blood pressure diastolic 90 mm Hg 024 Heart Rate 69 /min 02/08/2024 Height 66 in 02/08/2024 BMI 30.86 kg/m2 02/08/2024 Encounters Encounter Location Date Provider Diagnosis [facility] [address] [facility] [address] [place], [place] [id number] 02/08/2024 Destiny Dawn Gastroesophageal ref lux disease, [...] Notes * TANK PHILLIPOB:2000 (24 yo F)Acc No.[id number]:02/08/2024 Progress Notes Patient: FILI MONAHAN Provider: ETHEL Valentin :2000 A ge:23 Y S ex:Female Date:02/08/2024 Phone: Address:[address] [place] [address] , [place], [id number] Subjective: * Chief Complaints: * 1 . follow up ER, gerd. * HPI: G astroenterology: The pt is here for a follow up on an [facility] ER visit due to shortness of breath [...] the morning Orally once daily , Not-Taking Gelygaoajr-TPAG-Rsftympd 50-325-40 MG Tablet 1 tablet as needed [...] * Images: Billing Information: * Visit Code: 57523 Office Visit, Est Pt., Level 4. * Procedure Codes: * Electronic signature of ETHEL Edwards on 12/28/2024 at 11:24 PM EDT Sign off status: Pending * Provider: ETHEL Valentin Date: 0 02/08/2024 Generated for Printi ng/Fajaseg/eTransmitting on: 0 12/28/2024 11:24 PM EDT History and Physical Notes * [...]
--- OUTSIDE RECORDS SUMMARY | 2024-04-24 07:30 | XMS_ITS ---
Author Organization Bradley Address [address] [facility] [address] [phone] Care Team Providers Care It Program Engagement Director Name Role Phone Destiny Seymour Unavailable [phone] Allergies Allergen (clinical drug ingredient) Drug/Non Drug [...] Last Name Dawn Referring Provider Speciality Physician Finish Cleaner Referred Provider Rheumatology, . Referred Provider Specialty [...] 04/24/2024 Encounters Encounter Location Date Provider Diagnosis [facility] [address] [place], [place] [id number] 04/24/2024 Destiny Seymour Strep pharyngitis J0 2.0 [...] Notes * TANK ROSENOB:2000 (24 yo F)Acc No.[id number]:04/24/2024 Progress Notes Patient: FILI MONAHAN Provider: ETHEL Valentin :2000 A ge:23 Y S ex:Female Date:04/24/2024 Phone: Address:[address] [place] [address] Brad Ayon enmanuel, [id number] Subjective: * Chief Complaints: * 1 . [...] the morning Orally once daily , Discontinued Upxfaregzk-ZUQE-Llzkeyzq 50-325-40 MG Tablet 1 tablet as needed [...] * Images: Billing Information: * Visit Code: 25855 Office Visit, Est Pt., Level 3. * Procedure Codes: 20287 STREP A ASSAY W/OPTIC. Modifiers: QW * Electronic signature of ETHEL Edwards on 12/28/2024 at 11:25 PM EDT Sign off status: Pending * Provider: ETHEL Valentin Date: 1 Generated for Melisa gonzalez/Anel/Misbahitting on: 0 12/28/2024 11:25 PM EDT History and Physical Notes * [...]
--- OUTSIDE RECORDS SUMMARY | 2024-06-14 09:15 | XMS_ITS ---
Author Organization [place] Address 1210 [facility] [address] [place] [phone] Care Team Providers Care Desilverizer Name Role Phone Dawn Destiny Unavailable [phone] Allergies Allergen (clinical drug ingredient) Drug/Non Drug [...] Location Date Provider Diagnosis Nikolas 1210 [facility] [address] [place] [phone] 06/14/2024 Destiny Seymour Plan Of Treatment No Information Progress Notes * TANK PHILLIPOB:2000 (24 yo F)Acc No.[id number]:06/14/2024 Progress Notes Patient: FILI MONAHAN Provider: ETHEL Valentin :2000 A ge:24 Y S ex:Female Date:06/14/2024 Phone: Address:[address] [place] [address] Dr SE[place] Espinal-[id number] Subjective: * Chief Complaints: * 1 . [...] 08/15/2023 Generated for Melisa gonzalez/Anel/Misbahitting on: 0 12/28/2024 11:24 PM EDT History and Physical Notes * HPI (History of Present Illness) Category Sub-Category Detail Notes Category Not es HPI Patient is here today for Pt is here toda y for a check up
--- OUTSIDE RECORDS SUMMARY | 2024-12-28 23:25 | XMS_ITS | Patient Health Record ---
Author Organization [facility] Address [address] [place] [id number] Care Team Providers Care Forest Nursery Worker Name Role Phone Destiny Seymour Unavailable [phone] Allergies Allergen (clinical drug ingredient) Drug/Non Drug [...] Name Dawn Referring Provider Speciality Physician Pharmacy Operations Manager Referred Provider Rheumatology, . Referred Provider Specialty Rheumatology General Notes Destiny Seymour 2023 11:16:04 AM > PT needs an appt with Pepper Bonilla Brynn 02/12/2024 11:44:56 AM > sent referral to Dr. Jacobs via [facility] website Referral Priority Routine Diagnosis 1 Rheumatoid arthritis with positive rheumatoid factor, involving unspecified site (M05.9) Referral Organization [facility] Referring Provider First Name Destiny Referring Provider Last Name Dawn Referring Provider Speciality Physician Pharmacy Operations Manager Referred Provider Rheumatology, . Referred Provider [...] W/U Status Risk Notes Problem Supraventricular tachycardia (6144010) SVT (supraventricular tachycardia) (I47.1) Active confirmed Problem Paresthesia (54030763) Paresthesia (R20.2) Active confirmed Problem Mixed anxiety and depressive disorder (604933199) Depression with anxiety (F41.8) Active confirmed Problem Thyroid nodule (666670089) Thyroid nodule (E04.1) Active confirmed Problem Panic disorder (649629455) Panic attacks (F41.0) Active confirmed Problem Refractory migraine with aura (673371584) Intractable migraine with aura without status migrainosus (G43.119) Active confirmed Problem Cardiac arrhythmia (981278611) Cardiac arrhythmia, unspecified cardiac arrhythmia type (I49.9) Active confirmed Problem Refractory migraine (892172280) Intractable migraine without status migrainosus, unspecified migraine type (G43.919) Active confirmed Problem Thyromegaly (9239027) Thyromegaly (E01.0) Active confirmed Problem Migraine (03119383) Migraine syn drome (G43.909) Active confirmed Problem Gastroesophageal reflux disease (725912083) Gastroesophageal reflux disease, unspecified whether esophagitis present (K21.9) Active confirmed Problem Rheumatoid arthritis (94878249) Rheumatoid arthritis, involving unspecified site, unspecified whether rheumatoid factor present (M06.9) Active confirmed Problem Rheumatoid arthritis (04865913) Rheumatoid arthritis with positive rheumatoid factor, involving unspecified site (M05.9) Active confirmed Problem Tobacco user (044112066) Vaping nicotine dependence, non-tobacco product (F17.200) Active confirmed Problem Drug-induced insomnia (17927895137033) 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) Active confirmed Problem Compression of brain (28634638) 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) Active confirmed Vital Signs Heart Rate 85 /min 04/24/2024 Blood pressure diastolic 100 mm Hg 04/24/2024 Height 66 in 04/24/2024 Blood pressure systolic 134 mm Hg 04/24/2024 Weight 187.0 lbs 04/24/2024 BMI 30.18 kg/m2 04/24/2024 Encounters Encounter Location Date [facility] [address] [place] [id number] 02/08/2024 Destiny Seymour Gastroesophageal ref lux disease, unspecified whether esophagitis present K21.9 and Rheumatoid arthritis, involving unspecified site, unspecified whether rheumatoid factor present M06.9 [facility] [address] [place] [id number] 04/24/2024 Destiny Seymour Strep pharyngitis J0 2.0 and Rheumatoid arthritis with positive rheumatoid factor, involving unspecified site M05.9 [facility] [address] [place] [id number] 08/01/2024 Destiny Seymour Assessments Encounter Date Diagnosis [...] WANG BLUE [employer]ELD [address] [place] [address] [id number] 002 FILI PHILLIP Self - patient is [...]
--- OUTSIDE RECORDS SUMMARY | 2024-12-28 23:25 | XMS_ITS | Clinical Summary ---
Author Organization [facility] [place] Address [address] [place] [address] Phone Care Team Providers Care Clinical Educator Name Role Phone Unavailable Primary Care Provider Unavailabl e Allergies No known active allergies Active Problems Problem Noted Date Diagnosed Date S/P RF ablation operation for arrhythmia 023 Overview (03/02/2023): EPS, SVT Ablation 11/25/22-Dr. Demetrio Pearson @ [facility] SVT (supraventricular tachycardia) Surgical History Surgery Date Site/Laterality Comments CYST REMOVAL 08/31/2020 - 09/30/2020 Right R Hand Cyst Removal ABLATION OF DYSRHYTHMIC FOCUS 11/25/2022 EPS, SVT Ablation-Dr. Demetrio Pearson @ [facility] Medical History Medical History Date Comments [...]
--- OUTSIDE RECORDS SUMMARY | 2024-12-28 23:25 | XMS_ITS | Clinical Summary ---
Author Organization [facility] Address [address] [place] [address] Care Team Providers Care Surgical Corsetier Name Role Phone Leah Jasso APRN Primary Care Provider [phone] Encounters Date Type Department Care Team Description 09/30/2024 Telephone [facility] [address], [address] [place] [address] Neurology, Physician, from Last 3 [...] 19+ 3-dose series) 2020 UKY-Pap Smear 2022 [id number] Vaccine (1 - 20 24-25 season) 2024 [...] complete this topic Insurance WANG Care Teams Surgical Corsetier Relationship Specialty Start Date End Date Leah Jasso APRN [address] [facility] [address] [place] [address] PCP - General 11/13/20
[2024-12-28 23:27] VITALS: BMI 33.7
[2024-12-28 23:50] VITALS: BP 157/87; PULSE 77; RESP 18; TEMP 36.7; O2SAT 98; BMI 33.7
[2024-12-28 23:51] LABS: Microscopic, Urine URINE MICROSCOPIC (MICROSCOPIC)
[2024-12-28 23:54] LABS: Appearance,Urine SL CLOUDY (Clear); Blood, Urine 3+ (Negative); Color,Urine YELLOW (Yellow); Glucose,Urine (UA) Negative (Negative); Ketones,Urine TRACE (Negative); Leukocyte Esterase,Urine 2+ (Negative); Nitrate,Urine Negative (Negative); PH,Urine 6.5 (5.0-8.5); Protein,Urine 1+ (Negative); Specific Gravity, Urine >= 1.030 (1.005-1.030)
[2024-12-29 00:02] LABS: Bilirubin,Urine Negative (Negative)
[2024-12-29 00:03] LABS: Fetal Membrane Rupture (Rapid) Negative (Negative)
[2024-12-29 00:11] LABS: Bacteria,Urine 4+ /lpf; RBC,Urine 50-100 #/hpf (0-3); Squamous Epithelial Cell,Urine 50-100 #/hpf (0-5); WBC,Urine TNTC #/hpf (0-3)
[2024-12-29] MEDS: CEFTRIAXONE SODIUM 1 GM in 0.9 % SODIUM CHLORIDE 50 ML IV (00:45)
[2024-12-29] MEDS: LACTATED RINGERS 1000ML 1,000 ML 999 ML IV (01:17)
== END 2024-12-29 02:29 | disposition home or self-care (01) ==
LOC: OBOUT 23:23 → OB 23:23
PROVIDERS: PCP Physician Assistant; Visit Provider Obstetrics & Gynecology
DX: O11.3 Pre-existing hypertension with pre-eclampsia, third trimester (principal); O36.8330 Maternal care for abnormalities of the fetal heart rate or rhythm, third trimester, not applicable or unspecified; Z3A.32 32 weeks gestation of pregnancy
CPT/HCPCS: 59025; 81001; 84112; 87086; 96360; 99212; G0463; J0696; J7120

== ENCOUNTER 2024-12-31 12:41 | Outpatient (CLI) | payer BC, SELFPAY ==
--- OUTSIDE RECORDS SUMMARY | 2024-02-08 06:45 | XMS_ITS ---
Author Organization [facility] Address [address] [place] [id number] Care Team Providers Care Gospel Worker Name Role Phone Destiny Seymour Unavailable [phone] Allergies Allergen (clinical drug ingredient) Drug/Non Drug Allergy documented on EMR Reaction Allergy Type Onset Date Status erythromycin Erythromycin Unknown Drug Allergy A ctive Reason For Referral Diagnosis 1 Rheumatoid arthritis , involving unspecified site, unspecified whether rheumatoid factor present (M06.9) Referral Organization [facility] Referring Provider First Name Destiny Referring Provider Last Name Dawn Referring Provider Speciality Physician Mortgage Manager Referred Provider Rheumatology, . Referred Provider Specialty Rheumatology General Notes Destiny Seymour 2023 11:16:04 AM > PT needs an appt with Pepper Bonilla Brynn 02/12/2024 11:44:56 AM > sent referral to Dr. Jacobs via [facility] website Referral Priority Routine REASON FOR VISIT follow up ER, gerd Medications Medication SIG (Take, Route, Frequency, Duration) Notes Start Date End Date Status Omeprazole 40 MG 1 capsule 30 minutes before morning meal Orally Once a day 02/08/2024 Active Slynd 4 MG 1 tablet Orally Once a day; Duration: 30 day(s) Active Metoprolol Succinate ER 50 MG take 1 tab let by mouth once daily for 30 days Orally once daily Active Ubrelvy 100 MG 1 tablet may take second dose at least 2 hours after first dose as needed Orally Once a day, prn Active Ecuziwuzsx-KUAM-Kuzsonlf 50-325-40 MG 1 tablet as needed Orally three times a day as needed 05/01/2023 Not-Taking Plaquenil 200 MG 1 tab(s) Orally Two times a day; Duration: 30 day(s) Not-Taking Meclizine HCl 25 MG [...] Problem Status W/U Status Risk Notes Problem Gastroesophageal reflux disease (785725491) Gastroesophageal reflux disease, unspecified whether esophagitis present (K21.9) Active confirmed Problem Rheumatoid arthritis (85852918) Rheumatoid arthritis, involving unspecified site, unspecified whether rheumatoid factor present (M06.9) Active confirmed Vital Signs Blood pressure systolic 140 mm Hg 02/08/20 24 Blood pressure diastolic 90 mm Hg 024 Heart Rate 69 /min 02/08/2024 Height 66 in 02/08/2024 Weight 191.2 lbs 02/08/2024 BMI 30.86 kg/m2 02/08/2024 Encounters Encounter Location Date Provider Diagnosis [facility] [address] [facility] [address] [place], [place] [id number] 02/08/2024 Destiny Dawn Gastroesophageal ref lux disease, unspecified whether esophagitis [...] Referral Date Details 02/08/2024 02/08/2024, . Rheuma tology Next Appt Details Follow Up: prn, Reason: Progress Notes * TANK PHILLIPOB:2000 (24 yo F)Acc No.[id number]:02/08/2024 Progress Notes Patient: FILI MONAHAN Provider: EHTEL Valentin :2000 A ge:23 Y S ex:Female Date:02/08/2024 Phone: Address:[address] [place] [address] , [place], [id number] Subjective: * Chief Complaints: * 1 . follow up ER, gerd. * HPI: G astroenterology: The pt is here for a follow up on an [facility] ER visit due to shortness of [...] the morning Orally once daily , Not-Taking Sklwlriyis-FAEC-Lfgsvgwh 50-325-40 MG Tablet 1 tablet as needed [...] G eneral Examination: General Appearance: N AD. H EENT: u nremarkable.?Oral cavity: n o lesions, mucosa moist and WNL, no erythema. N jayson: s upple, no lymphadenopathy. C hest: n ormal shape and expansion. H eart: R SR. L ungs: c lear to auscultation. A bdomen: bowel sounds present, soft and nontender, no organomegaly or masses, no guarding or rigidity. N eurologic Exam: I ntact, gait normal. S kin: n ormal, no rash. P eripheral pulses: n ormal (2+) bilaterally. E xtremities: n o leg edema. Assessment: * Assessment: [...] Reason: * Follow Up: p rn * Images: Billing Information: * Visit Code: 87418 Office Visit, Est Pt., Level 4. * Procedure Codes: * Electronic signature of ETHEL Edwards on 12/31/2024 at 12:43 PM EDT Sign off status: Pending * Provider: ETHEL Valentin Date: 02/08/2024 Generated for Leonori ng/Fajaseg/eTransmitting on: 12/31/2024 12:43 PM EDT History and Physical Notes * HPI [...]
--- OUTSIDE RECORDS SUMMARY | 2024-04-24 07:30 | XMS_ITS ---
Author Organization [facility] Address [address] [facility] [address] [place] [phone] Care Team Providers Care Inpatient Services Rn Name Role Phone Destiny Seymour Unavailable [phone] Allergies Allergen (clinical drug ingredient) Drug/Non Drug [...] Last Name Dawn Referring Provider Speciality Physician Retail Stock Clerk Referred Provider Rheumatology, . Referred Provider [...] 04/24/2024 Encounters Encounter Location Date Provider Diagnosis [facility] [address] [place], [place] [phone] 04/24/2024 Destiny Seymour Strep pharyngitis J0 2.0 [...] Notes * TANK ROSENOB:2000 (24 yo F)Acc No.[id number]:04/24/2024 Progress Notes Patient: FILI MONAHAN Provider: ETHEL Valentin :2000 A ge:23 Y S ex:Female Date:04/24/2024 Phone: Address:[address] [place] [address] Brad Ayon enmanuel, [id number] Subjective: * Chief Complaints: * 1 . [...] the morning Orally once daily , Discontinued Qyghpstpcd-UTDF-Kddotyta 50-325-40 MG Tablet 1 tablet as needed [...] * Images: Billing Information: * Visit Code: 03079 Office Visit, Est Pt., Level 3. * Procedure Codes: 86892 STREP A ASSAY W/OPTIC. Modifiers: QW * Electronic signature of ETHEL Edwards on 12/31/2024 at 12:43 PM EDT Sign off status: Pending * Provider: ETHEL Valentin Date: Generated for Melisa gonzalez/Anel/Misbahitting on: 0 12/31/2024 12:43 PM EDT History and Physical [...]
--- OUTSIDE RECORDS SUMMARY | 2024-06-14 09:15 | XMS_ITS ---
Author Organization [place] Address [facility]10 [facility] [address] [place] [phone] Care Team Providers Care Fender Mechanic Apprentice Name Role Phone Dawn Destiny Unavailable [phone] Allergies Allergen (clinical drug ingredient) Drug/Non Drug [...] Encounter Location Date Provider Diagnosis Nikolas 1210 [facility] [address] [place] [phone] 06/14/2024 Destiny Seymour Plan Of Treatment No Information Progress Notes * TANK PHILLIPOB:2000 (24 yo F)Acc No.[id number]:06/14/2024 Progress Notes Patient: FILI MONAHAN Provider: ETHEL Valentin :2000 A ge:24 Y S ex:Female Date:06/14/2024 Phone: Address:[address] [place] [address] Dr SE[place] Espinal-[id number] Subjective: * Chief Complaints: * 1 . [...] 08/15/2023 Generated for Melisa gonzalez/Anel/Misbahitting on: 0 12/31/2024 12:43 PM EDT History and Physical Notes * HPI (History of Present Illness) Category Sub-Category Detail Notes Category Not es HPI Patient is here today for Pt is here toda y for a check up
--- OUTSIDE RECORDS SUMMARY | 2024-12-31 12:43 | XMS_ITS | Clinical Summary ---
Author Organization [facility] [place] Address [address] [place] [address] Phone Care Team Providers Care Grinder Set Up Operator Name Role Phone Unavailable Primary Care Provider Unavailabl e Allergies No known active allergies Active Problems Problem Noted Date Diagnosed Date S/P RF ablation operation for arrhythmia 023 Overview (03/02/2023): EPS, SVT Ablation 11/25/22-Dr. Demetrio Pearson @ [facility] SVT (supraventricular tachycardia) Surgical History Surgery Date Site/Laterality Comments CYST REMOVAL 08/31/2020 - 09/30/2020 Right R Hand Cyst Removal ABLATION OF DYSRHYTHMIC FOCUS 11/25/2022 EPS, SVT Ablation-Dr. Demetrio Pearson @ [facility] Medical History Medical History Date Comments [...] Screening 2022 Pap Smear 2022 COVID-19 Vaccine ( - 2023-2 5 season) 2024 Influenza Vaccine (#1) 2025 Pneumococcal Vaccine 0-49 Aged Out No longer eligible based on patient's age to complete this topic Insurance HU[employer] POS
--- OUTSIDE RECORDS SUMMARY | 2024-12-31 12:43 | XMS_ITS | Patient Health Record ---
Author Organization [facility] Address [address] [place] [id number] Care Team Providers Care J2Ee Architect Name Role Phone Destiny Seymour Unavailable [phone] Allergies Allergen (clinical drug ingredient) Drug/Non Drug [...] Last Name Dawn Referring Provider Speciality Physician Production Wood Craftsman Referred Provider Rheumatology, . Referred Provider Specialty Rheumatology General Notes Destiny Seymour 2023 11:16:04 AM > PT needs an appt with Pepper Bonilla Brynn 02/12/2024 11:44:56 AM > sent referral to Dr. Jacobs via [facility] website Referral Priority Routine Diagnosis 1 Rheumatoid arthritis with positive rheumatoid factor, involving unspecified site (M05.9) Referral Organization [facility] Referring Provider First Name Destiny Referring Provider Last Name Dawn Referring Provider Speciality Physician Production Wood Craftsman Referred Provider Rheumatology, . Referred Provider Specialty [...] W/U Status Risk Notes Problem Supraventricular tachycardia (0181374) SVT (supraventricular tachycardia) (I47.1) Active confirmed Problem Paresthesia (94910552) Paresthesia (R20.2) Active confirmed Problem Mixed anxiety and depressive disorder (121076363) Depression with anxiety (F41.8) Active confirmed Problem Thyroid nodule (360422040) Thyroid nodule (E04.1) Active confirmed Problem Panic disorder (699928682) Panic attacks (F41.0) Active confirmed Problem Refractory migraine with aura (258186856) Intractable migraine with aura without status migrainosus (G43.119) Active confirmed Problem Cardiac arrhythmia (556435570) Cardiac arrhythmia, unspecified cardiac arrhythmia type (I49.9) Active confirmed Problem Refractory migraine (076442805) Intractable migraine without status migrainosus, unspecified migraine type (G43.919) Active confirmed Problem Thyromegaly (6536894) Thyromegaly (E01.0) Active confirmed Problem Migraine (74092696) Migraine syn drome (G43.909) Active confirmed Problem Gastroesophageal reflux disease (628922290) Gastroesophageal reflux disease, unspecified whether esophagitis present (K21.9) Active confirmed Problem Rheumatoid arthritis (53216835) Rheumatoid arthritis, involving unspecified site, unspecified whether rheumatoid factor present (M06.9) Active confirmed Problem Rheumatoid arthritis (35796769) Rheumatoid arthritis with positive rheumatoid factor, involving unspecified site (M05.9) Active confirmed Problem Tobacco user (959719195) Vaping nicotine dependence, non-tobacco product (F17.200) Active confirmed Problem Drug-induced insomnia (35048716346017) 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) Active confirmed Problem Compression of brain (86214572) 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) Active confirmed Vital Signs Heart Rate 85 /min 04/24/2024 Blood pressure diastolic 100 mm Hg 04/24/2024 Height 66 in 04/24/2024 Blood pressure systolic 134 mm Hg 04/24/2024 Weight 187.0 lbs 04/24/2024 BMI 30.18 kg/m2 04/24/2024 Encounters Encounter Location Date [facility] [address] [place] [id number] 02/08/2024 Destiny Seymour Gastroesophageal ref lux disease, unspecified whether esophagitis present K21.9 and Rheumatoid arthritis, involving unspecified site, unspecified whether rheumatoid factor present M06.9 [facility] [address] [place] [id number] 04/24/2024 Destiny Seymour Strep pharyngitis J0 2.0 and Rheumatoid arthritis with positive rheumatoid factor, involving unspecified site M05.9 [facility] [address] [place] [id number] 08/01/2024 Destiny Seymour Assessments Encounter Date Diagnosis [...] WANG [employer] [address] [place] [address] [id number] 002 FILI PHILLIP Self - patient is [...]
--- OUTSIDE RECORDS SUMMARY | 2024-12-31 12:43 | XMS_ITS | Clinical Summary ---
Author Organization [facility] Address [address] [place] [address] Care Team Providers Care Ironworker Apprentice Name Role Phone Leah Jasso APRN Primary Care Provider [phone] Family History Medical History Relation Name Comments [...] 19+ 3-dose series) 2020 UKY-Pap Smear 2022 [id number] Vaccine (1 - 20 24-25 season) 2024 [...] patient's age to complete [place] [address] KENRICK Care Teams Ironworker Apprentice Relationship Specialty Start Date End Date Leah Jasso APRN [address] [facility] [address] [place] [address] PCP - General 11/13/20
--- NOTE | 2024-12-31 13:00 | US_ITS ---
PROCEDURE: US OB BIOPHYSICAL PROFILE CLINICAL INDICATION: needs for early Preeclampsia COMPARISON: US US OB <= 14 WEEKS FETUS from 06/24/2024 US US OB /MATERNAL DETAIL from 09/26/2024 US OB FOLLOW UP from 10/24/2024 US OB TRANSVAGINAL from 10/24/2024 US OB FOLLOW UP from 11/21/2024 US OB BIOPHYSICAL PROFILE from 12/10/2024 US OB BIOPHYSICAL PROFILE from 12/17/2024 US OB BIOPHYSICAL PROFILE from 12/24/2024 FINDINGS: Transabdominal sonographic images of the uterus were obtained. From her established due date she is 33weeks 2days. The following parameters are obtained: Viable Fetus in the cephalic presentation with an anterior placenta grade 2. The cervix measures 2.80 cm in length. Measurements: heart Rate = 158bpm Amniotic fluid index: 12.51cm, MVP 5.47 cm. Qualitative AFV:2 Breathing movements: 2 Gross Body Movements: 2 Tone: 2 Biophysical profile score: 8 No obvious anomalies evident.Kidneys, stomach, bladder, four-chamber heart, three-vessel cord appear normal. IMPRESSION: 1. Viable fetus in the cephalic presentation with an anterior placenta grade 2. 2. The fluid is within normal limits with an amniotic fluid index 12.51 cm, MVP 5.47 cm. 3. Biophysical profile is 8/8 with good breathing movement and movement seen. 4. Initially the fetus was tachycardic and later in the exam it return to a normal rate. 5. Limited anatomical scan appears normal. Dictated by: Oliverio Amanda MD 12/31/2024 14:02 Oliverio Amanda MD in OV 12/31/2024 14:02
== END 2024-12-31 23:59 | disposition home or self-care (01) ==
LOC: RAD 12:42
PROVIDERS: PCP Physician Assistant; Visit Provider Obstetrics & Gynecology
DX: O36.8330 Maternal care for abnormalities of the fetal heart rate or rhythm, third trimester, not applicable or unspecified (principal); O36.8390 Maternal care for abnormalities of the fetal heart rate or rhythm, unspecified trimester, not applicable or unspecified; O14.93 Unspecified pre-eclampsia, third trimester; Z3A.33 33 weeks gestation of pregnancy
CPT/HCPCS: 76819

== ENCOUNTER 2024-12-31 13:53 | Outpatient (CLI) | payer BC, SELFPAY ==
[2024-12-31 13:57] VITALS: BMI 33.5
--- OUTSIDE RECORDS SUMMARY | 2024-12-31 14:04 | XMS_ITS | Clinical Summary ---
Author Organization [facility] Address [address] [place] [address] Care Team Providers Care Stove Mounter Name Role Phone Leah Jasso APRN Primary Care Provider [phone] Family History Medical History Relation Name Comments [...] 19+ 3-dose series) 2020 UKY-Pap Smear 2022 [id number] Vaccine (1 - 20 24-25 season) 2024 [...] to [place] [address] KENRICK Care Teams Stove Mounter Relationship Specialty Start Date End Date Leah Jasso APRN [address] [facility] [address] [place] [address] PCP - General 11/13/20
--- OUTSIDE RECORDS SUMMARY | 2024-12-31 14:04 | XMS_ITS | Clinical Summary ---
Author Organization [facility] Address [address] [facility] [address] [place] [address] Phone Care Team Providers Care Golf Coach Name Role Phone Unavailable Primary Care Provider Unavailabl e Allergies No known active allergies Active Problems Problem Noted Date Diagnosed Date S/P RF ablation operation for arrhythmia 023 Overview (03/02/2023): EPS, SVT Ablation 11/25/22-Dr. Demetrio Pearson @ [facility] SVT (supraventricular tachycardia) Surgical History Surgery Date Site/Laterality Comments CYST REMOVAL 08/31/2020 - 09/30/2020 Right R Hand Cyst Removal ABLATION OF DYSRHYTHMIC FOCUS 11/25/2022 EPS, SVT Ablation-Dr. Demetrio Pearson @ [facility] Medical History Medical History Date Comments [...]
[2024-12-31 14:28] LABS: Hematocrit 31.4 % (37.0-47.0); Hemoglobin 11.1 g/dL (12.2-16.2); Immature Granulocytes % 0.4 %; Mean Corpuscular HGB Conc 35.4 g/dL (31.8-35.4); Mean Corpuscular Hemoglobin 31.4 pg (27.0-31.2); Mean Corpuscular Volume 88.7 fl (81-99); Nucleated Red Blood Cells % 0 %; Platelet Count 241 K/mm3 (142-424); Red Blood Count 3.54 M/mm3 (4.20-5.40); Red Cell Distribution Width-SD 40.7 fL; White Blood Count 9.3 K/mm3 (4.8-10.8)
[2024-12-31 14:30] VITALS: BP 146/95; PULSE 88; RESP 18; O2SAT 96
[2024-12-31 14:34] LABS: Albumin Level 3.6 g/dl (3.5-5.0); Chloride 102 mmol/L (98-107)
[2024-12-31 14:35] LABS: Potassium 3.5 mmoL/L (3.5-5.1); Sodium 135 mmol/L (136-145)
[2024-12-31 14:37] LABS: Blood Urea Nitrogen 4 mg/dl (7-17); Creatinine Clearance Estimated 261 mL/min (50-200); Creatinine,Serum 0.50 mg/dl (0.52-1.04); Estimated Glomerular Filt Rate 153 ml/min (>60); GFR (African American) 185 ML/MIN (>60)
[2024-12-31 14:38] LABS: Alanine Aminotransferase 14 U/L (12-78); Albumin/Globulin Ratio 1.2 (1.1-1.8); Alkaline Phosphatase 86 U/L (38-126); Anion Gap 14.5 mEq/L (5-15); Aspartate Amino Transferase 22 U/L (14-36); Bilirubin,Total 0.3 mg/dl (0.2-1.3); Calcium 8.7 mg/dl (8.4-10.2); Carbon Dioxide 22 mmol/L (22.0-30.0); Globulin 2.9 g/dL (1.3-3.2); Glucose 127 mg/dl (74-100); Total Protein,Serum 6.5 g/dl (6.3-8.2)
[2024-12-31 14:46] VITALS: BMI 33.5
[2024-12-31 15:02] LABS: Uric Acid 4.7 mg/dl (2.5-6.2)
[2024-12-31 15:17] VITALS: BP 136/95
== END 2024-12-31 15:35 | disposition home or self-care (01) ==
LOC: OBOUT 13:54 → OB 13:56
PROVIDERS: PCP Physician Assistant; Visit Provider Obstetrics & Gynecology
DX: O11.3 Pre-existing hypertension with pre-eclampsia, third trimester (principal); Z3A.33 33 weeks gestation of pregnancy
CPT/HCPCS: 36415; 59025; 80053; 82570; 84156; 84550; 85025; 99212; G0463

== ENCOUNTER 2025-01-03 10:09 | Outpatient (CLI) | payer BC, SELFPAY ==
--- OUTSIDE RECORDS SUMMARY | 2024-02-08 06:45 | XMS_ITS ---
Author Organization [facility] Address [address] [place] [phone] Care Team Providers Care Manager Transplant Name Role Phone Destiny Seymour Unavailable [phone] Allergies Allergen (clinical drug ingredient) Drug/Non Drug Allergy documented on EMR Reaction Allergy Type Onset Date Status Erythromycin Unknown Drug Allergy Acti ve Reason For Referral Diagnosis 1 Rheumatoid arthritis , involving unspecified site, unspecified whether rheumatoid factor present (M06.9) Referral Organization [facility] Referring Provider First Name Destiny Referring Provider Last Name Dawn Referring Provider Speciality Physician Descriptive Catalog Librarian Referred Provider Rheumatology, . Referred Provider Specialty Rheumatology General Notes Destiny Seymour 2023 11:16:04 AM > PT needs an appt with Pepper Bonilla Brynn 02/12/2024 11:44:56 AM > sent referral to Dr. Jacobs via [facility] website Referral Priority Routine REASON FOR VISIT [...] needed Orally Once a day, prn Active Aylieehdgx-LYXE-Zptcmwex 50-325-40 MG 1 tablet as needed Orally [...] present (K21.9) Active confirmed Problem Rheumatoid arthritis (72363513) Rheumatoid arthritis, involving unspecified site, unspecified whether rheumatoid factor present (M06.9) Active confirmed Vital Signs Blood pressure systolic 140 mm Hg 02/08/20 24 Blood pressure diastolic 90 mm Hg 024 Heart Rate 69 /min 02/08/2024 Height 66 in 02/08/2024 Weight 191.2 lbs 02/08/2024 BMI 30.86 kg/m2 02/08/2024 Encounters Encounter Location Date Provider Diagnosis [facility] [address] [facility] [address] [place], [place] [phone] 02/08/2024 Destiny Seymour Gastroesophageal ref lux disease, [...] Notes * TANK PHILLIPOB:2000 (24 yo F)Acc No.[id number]:02/08/2024 Progress Notes Patient: FILI MONAHAN Provider: ETHEL Valentin :2000 A ge:23 Y S ex:Female Date:02/08/2024 Phone: Address:[address] [place] [address] , [place], [id number] Subjective: * Chief Complaints: * 1 . follow up ER, gerd. * HPI: G astroenterology: The pt is here for a follow up on an [facility] ER visit due to shortness of [...] the morning Orally once daily , Not-Taking Kkfeyseowk-FJRN-Attuhssr 50-325-40 MG Tablet 1 tablet as needed [...] * Images: Billing Information: * Visit Code: 76802 Office Visit, Est Pt., Level 4. * Procedure Codes: * Electronic signature of ETHEL Edwards on 01/03/2025 at 10:13 AM EDT Sign off status: Pending * Provider: ETHEL Valentin Date: 02/08/2024 Generated for Printi ng/Faxing/eTransmitting on: 01/03/2025 10:13 AM EDT History and Physical Notes * [...]
--- OUTSIDE RECORDS SUMMARY | 2024-04-24 07:30 | XMS_ITS ---
Author Organization [facility] Address [address] [facility] [address] [place] [id number] Care Team Providers Care Last Model Department Supervisor Name Role Phone Destiny Seymour Unavailable [phone] Allergies Allergen (clinical drug ingredient) Drug/Non Drug Allergy documented on EMR Reaction Allergy Type Onset Date Status erythromycin Erythromycin Unknown Drug Allergy A ctive Results Component Value Reference Range Notes Rapid Strep- Inhouse Reviewed date:04/25/2024 03:41:35 PM Interpretation: Performing Lab: Notes/Report: strep test Pos Reason For Referral Diagnosis 1 Rheumatoid arthritis with positive rheumatoid factor, involving unspecified site (M05.9) Referral Organization [facility] Referring Provider First Name Detsiny Referring Provider Last Name Dawn Referring Provider Speciality Physician 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 Referred Provider Specialty Rheumatology General Notes Destiny Seymour 04/03 12:23:11 PM > Pt needs to see Pepper Bonilla Brynn 04/24/2024 12:51:53 PM > faxed referral to 's office Referral Priority Routine REASON FOR VISIT arthritis flare up Medications Medication SIG (Take, Route, Frequency, Duration) Notes Start Date End Date Status Omeprazole 40 MG 1 capsule 30 minutes before morning meal Orally Once a day 02/08/2024 Active Cefdinir 300 MG 1 cap(s) Orally Two times a day; Duration: 10 day(s) 04/24/2024 Activ e Slynd 4 MG 1 tablet Orally Once a day; Duration: 30 day(s) Active Ubrelvy 100 MG 1 tablet may take se cond dose at least 2 hours after first dose as needed Orally Once a day, prn Active Metoprolol Succinate ER 50 MG take 1 tablet by mouth once daily for 30 days Orally once daily Active 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 Tobacco Use: 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 Observation Description Date Smoking Status WARNING: Information temporarily unavailable CURRENT TOBACCO USE: Question Answer Notes Are you a: Smokeless Tobacc o (Vape) Problems Problem Type SNOMED Code ICD Code Onset Dates Problem Status W/U Status Risk Notes Problem Rheumatoid arthritis with positive rheumatoid factor, involving unspecified site (M05.9) Active confirmed Vital Signs Blood pressure systolic 134 mm Hg 04/24/20 24 Blood pressure diastolic 100 mm Hg 024 Heart Rate 85 /min 04/24/2024 Height 66 in 04/24/2024 Weight 187.0 lbs 04/24/2024 BMI 30.18 kg/m2 04/24/2024 Encounters Encounter Location Date Provider Diagnosis [facility] [address] [place], [place] [id number] 04/24/2024 Destiny Seymour Strep pharyngitis J0 2.0 and Rheumatoid arthritis with positive rheumatoid factor, involving unspecified site M05.9 Assessments Encounter Date Diagnosis (ICD Code) Assessment Notes Treatment Notes Treatment Clinical Notes Section Notes 04/24/2024 Strep pharyngitis (ICD-10 - J02.0) Rest, Fluids, tylenol or motrin for fever, gargle with warm water or salt water, throw away toothbrush after a few days on the antibiotic. The patient had amoxicillin for strep about 2-3 weeks ago. Will start on cefdinir. Will monitor BP at home. 04/24/2024 Rheumatoid arthritis with positive rheumatoid factor, involving unspecified site (ICD-10 - M05.9) Plan Of Treatment Medication Medication Name Sig Start Date Stop Date Notes Cefdinir 300 MG 1 cap(s) Orally Two times a day; Duration: 10 day(s) 04/24/2024 Treatment Notes Assessment Notes Strep pharyngitis Rest, Fluids, tyleno l or motrin for fever, gargle with warm water or salt water, throw away toothbrush after a few days on the antibiotic. The patient had amoxicillin for strep about 2-3 weeks ago. Will start on cefdinir. Will monitor BP at home. Referrals Referral Date Details 04/24/2024 04/24/2024, . Rheuma aishaogy Next Appt Details Follow Up: prn, Reason: Progress Notes * TANK ROSENOB:2000 (24 yo F)Acc No.[id number]:04/24/2024 Progress Notes Patient: FILI MONAHAN Provider: ETHEL Valentin :2000 A ge:23 Y S ex:Female Date:04/24/2024 Phone: Address:[address] [place] [address] [place], [id number] Subjective: * Chief Complaints: * 1 . Arthritis flare up. * HPI: E NT/respiratory: The pt states the past 5 days she has had increased pain in her upper body. Pt states she woke up this morning with sore throat and swollen tonsils. 23 year old female presents with c/o sore throat. Denies : Fever. * ROS: D ERMATOLOGY: no R donna. n o H katrina. G ASTROENTEROLOGY: no N ausea. n o V omiting. n o D iarrhea.? U ROLOGY: no D ifficulty urinating. n [...] needed Orally Once a day, prn , Taking Omeprazole 40 MG Capsule Delayed Release 1 capsule 30 minutes before morning meal Orally Once a day , Discontinued hydroCHLOROthiazide 12.5 MG Tablet 1 tablet in the morning Orally once daily , Discontinued Gbphktozza-ACPV-Ozpljofp 50-325-40 MG Tablet 1 tablet as needed Orally three times a day as needed , Discontinued Plaquenil 200 MG Tablet 1 tab(s) Orally Two times a day , Discontinued Meclizine HCl 25 MG Tablet 1 tablet as needed Orally three times a day as needed , Medication List reviewed and reconciled with the patient * Allergies: E rythromycin. Objective: * Vitals: W t:187.0, Temp:98.3, BP:134/100, HR:85, Nurse:MINERVA, Ht: 66, BMI:30.18. * Examination: E NT/Respiratory: General Appearance: N AD. E ars: a uditory canals normal bilaterally, TM's WNL. N ose : no edema, good color. S inuses : non tender bilaterally. O ral cavity : tonsils 2+ enlarged, erythema with exudate on tonsils. N jayson : supple, bilateral tender lymphadenopathy. H eart : R RR, normal S1 S2, no murmurs. L ungs: c lear to auscultation bilaterally. Assessment: * Assessment: 1. S trep pharyngitis - J02.0 (Primary) 2 . R heumatoid arthritis with positive rheumatoid factor, involving unspecified site - M05.9 Plan: * Treatment: Value Reference Range s trep test Pos * Janee Lopez 04/25/2024 9: 52:30 AM > , Provider reviewed results while patient in office. Notes: Rest, Fluids, tylenol or motrin for fever, gargle with warm water or salt water, throw away toothbrush after a few days on the antibiotic. The patient had amoxicillin for strep about 2-3 weeksago. Will start on cefdinir. Will monitor BP at home.??2.?Rheumatoid arthritis with positive rheumatoid factor, involving unspecified site? Referral To:. Rheumatology??Rheumatology ?Reason: * Procedure Codes: 8 7880 STREP A ASSAY W/OPTIC, Modifiers: QW * Follow Up: p rn * Images: Billing Information: * Visit Code: 38453 Office Visit, Est Pt., Level 3. * Procedure Codes: 00406 STREP A ASSAY W/OPTIC. Modifiers: QW * Electronic signature of ETHEL Edwards on 01/03/2025 at 10:13 AM EDT Sign off status: Pending * Provider: ETHEL Valentin Date: 1 Generated for Melisa gonzalez/Anel/Misbahitting on: 0 01/03/2025 10:13 AM EDT History and Physical Notes * HPI (History of Present Illness) Category Sub-Category Detail Notes Category Not es ENT/respiratory sore throat Fever Examination Category Sub-Category Detail Notes Category Not es ENT/Respiratory Oral cavity : tonsils 2+ enlar ged, erythema with exudate on tonsils Sinuses : non tender bilateral ly Ears: auditory canals norm al bilaterally, TM's WNL Neck : supple, bilateral te nder lymphadenopathy Heart : RRR, normal S1 S2, n o murmurs Lungs: clear to auscultatio n bilaterally General Appearance: NAD Nose : no edema, good color Consultation Request Notes Referral Date Referring Provider Referred Provider Not es 04/24/2024 Destiny Seymour Rheumatology, .
--- OUTSIDE RECORDS SUMMARY | 2024-06-14 09:15 | XMS_ITS ---
Author Organization Bradley Address [address] [facility] [address] [place] [phone] Care Team Providers Care Inspector Subassembly Name Role Phone Dawn Destiny Unavailable [phone] Allergies Allergen (clinical drug ingredient) Drug/Non Drug [...] Encounter Location Date Provider Diagnosis [facility] [address] [place] [phone] 06/14/2024 Destiny Seymour Plan Of Treatment No Information Progress Notes * TANK PHILLIPOB:2000 (24 yo F)Acc No.[id number]:06/14/2024 Progress Notes Patient: FILI MONAHAN Provider: ETHEL Valentin :2000 A ge:24 Y S ex:Female Date:06/14/2024 Phone: Address:[address] [place] [address] [id number] Subjective: * Chief Complaints: * 1 . [...] 08/15/2023 Generated for Melisa gonzalez/Anel/Misbahitting on: 0 01/03/2025 10:13 AM EDT History and Physical Notes * HPI (History of Present Illness) Category Sub-Category Detail Notes Category Not es HPI Patient is here today for Pt is here toda y for a check up
--- OUTSIDE RECORDS SUMMARY | 2025-01-03 10:13 | XMS_ITS | Patient Health Record ---
Author Organization [facility] Address [address] [place] [id number] Care Team Providers Care Preventive Medicine Officer Name Role Phone Destiny Seymour Unavailable [phone] Allergies Allergen (clinical drug ingredient) Drug/Non Drug [...] Last Name Dawn Referring Provider Speciality Physician Human Factors Ergonomist Referred Provider Rheumatology, . Referred Provider Specialty Rheumatology General Notes Destiny Seymour 2023 11:16:04 AM > PT needs an appt with Pepper Bonilla Brynn 02/12/2024 11:44:56 AM > sent referral to Dr. Jacobs via [facility] website Referral Priority Routine Diagnosis 1 Rheumatoid arthritis with positive rheumatoid factor, involving unspecified site (M05.9) Referral Organization [facility]olas Referring Provider First Name Destiny Referring Provider Last Name Dawn Referring Provider Speciality Physician Human Factors Ergonomist Referred Provider Rheumatology, . Referred Provider Specialty [...] W/U Status Risk Notes Problem Supraventricular tachycardia (2043157) SVT (supraventricular tachycardia) (I47.1) Active confirmed Problem Paresthesia (28600244) Paresthesia (R20.2) Active confirmed Problem Mixed anxiety and depressive disorder (252757964) Depression with anxiety (F41.8) Active confirmed Problem Thyroid nodule (257535169) Thyroid nodule (E04.1) Active confirmed Problem Panic disorder (518436502) Panic attacks (F41.0) Active confirmed Problem Refractory migraine with aura (075385123) Intractable migraine with aura without status migrainosus (G43.119) Active confirmed Problem Cardiac arrhythmia (712453585) Cardiac arrhythmia, unspecified cardiac arrhythmia type (I49.9) Active confirmed Problem Refractory migraine (137677860) Intractable migraine without status migrainosus, unspecified migraine type (G43.919) Active confirmed Problem Thyromegaly (9918926) Thyromegaly (E01.0) Active confirmed Problem Migraine (50274675) Migraine syn drome (G43.909) Active confirmed Problem Gastroesophageal reflux disease (576027996) Gastroesophageal reflux disease, unspecified whether esophagitis present (K21.9) Active confirmed Problem Rheumatoid arthritis (59287413) Rheumatoid arthritis, involving unspecified site, unspecified whether rheumatoid factor present (M06.9) Active confirmed Problem Rheumatoid arthritis (10608507) Rheumatoid arthritis with positive rheumatoid factor, involving unspecified site (M05.9) Active confirmed Problem Tobacco user (613332631) Vaping nicotine dependence, non-tobacco product (F17.200) Active confirmed Problem Drug-induced insomnia (64704266624686) 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) Active confirmed Problem Compression of brain (29753269) 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) Active confirmed Vital Signs Heart Rate 85 /min 04/24/2024 Blood pressure diastolic 100 mm Hg 04/24/2024 Height 66 in 04/24/2024 Blood pressure systolic 134 mm Hg 04/24/2024 Weight 187.0 lbs 04/24/2024 BMI 30.18 kg/m2 04/24/2024 Encounters Encounter Location Date [facility] [address] [place] [id number] 02/08/2024 Destiny Seymour Gastroesophageal ref lux disease, unspecified whether esophagitis present K21.9 and Rheumatoid arthritis, involving unspecified site, unspecified whether rheumatoid factor present M06.9 [facility] [address] [place] [id number] 04/24/2024 Destiny Seymour Strep pharyngitis J0 2.0 and Rheumatoid arthritis with positive rheumatoid factor, involving unspecified site M05.9 [facility] [address] [place] [id number] 08/01/2024 Destiny Seymour Assessments Encounter Date Diagnosis [...] WANG [employer] [address] [place] [address] [id number] 002 FILI PHILLIP Self - patient is [...]
--- OUTSIDE RECORDS SUMMARY | 2025-01-03 10:13 | XMS_ITS | Clinical Summary ---
Author Organization [facility] Address [address] [place] [address] Care Team Providers Care Cutting Table Operator Name Role Phone Leah Jasso APRN Primary Care Provider [phone] Family History Medical History Relation Name Comments [...] 19+ 3-dose series) 2020 UKY-Pap Smear 2022 [id number] Vaccine (1 - 20 24-25 season) 2024 UKY-Influenza Vaccine (#1) 2025 UKY-Zoster Vaccines (1 of 2) 2051 [...] to [place] [id number] [place] Care Teams Cutting Table Operator Relationship Specialty Start Date End Date Leah Jasso APRN [address] [facility] [address] [place] [address] PCP - General 11/13/20
--- OUTSIDE RECORDS SUMMARY | 2025-01-03 10:13 | XMS_ITS | Clinical Summary ---
Author Organization [facility] Address [address] [facility] [address] [place] [address] Phone Care Team Providers Care Psychologist Experimental Name Role Phone Unavailable Primary Care Provider Unavailabl e Allergies No known active allergies Active Problems Problem Noted Date Diagnosed Date S/P RF ablation operation for arrhythmia 023 Overview (03/02/2023): EPS, SVT Ablation 11/25/22-Dr. Demetrio Pearson @ [facility] SVT (supraventricular tachycardia) Surgical History Surgery Date Site/Laterality Comments CYST REMOVAL 08/31/2020 - 09/30/2020 Right R Hand Cyst Removal ABLATION OF DYSRHYTHMIC FOCUS 11/25/2022 EPS, SVT Ablation-Dr. Demetrio Pearson @ [facility] Medical History Medical History Date Comments SVT [...]
[2025-01-03 10:18] VITALS: BP 144/81; PULSE 101; RESP 16; TEMP 36.7; O2SAT 95; BMI 33.5
[2025-01-03 10:49] LABS: Microscopic, Urine URINE MICROSCOPIC (MICROSCOPIC)
[2025-01-03 10:53] LABS: Bilirubin,Urine Negative (Negative); Color,Urine YELLOW (Yellow); Glucose,Urine (UA) Negative (Negative); Ketones,Urine Negative (Negative); Leukocyte Esterase,Urine 1+ (Negative); PH,Urine 7.0 (5.0-8.5); Protein,Urine Negative (Negative); Specific Gravity, Urine 1.010 (1.005-1.030); Urobilinogen,Urine 0.2 EU/dl (0.2)
[2025-01-03 11:00] LABS: Bacteria,Urine Trace /lpf
--- NOTE | 2025-01-03 11:40 | US_ITS ---
PROCEDURE INFORMATION: Exam: US Biophysical Profile Without Non-Stress Test Exam date and time: 01/03/2025 12:11 PM Age: 24 years old Clinical indication: Other: Variable decelerations on nst; TECHNIQUE: Imaging protocol: US biophysical profile without non-stress testing. Total images: 809 COMPARISON: US OB BIOPHYSICAL PROFILE 12/31/2024 12:38 PM FINDINGS: heart rate: 140 bpm Amniotic fluid index: DUSTIN is 10.95 cm. BIOPHYSICAL PROFILE: breathing (BPP): 2 /2 gross body movement (BPP): 2 /2 tone (BPP): 2 /2 Amniotic fluid (BPP): 2 /2 Biophysical profile score (BPP): 8 /8 MATERNAL ANATOMY: Cervix: Cervical length measures 3.99 cm. IMPRESSION: Biophysical profile score 8/8.
== END 2025-01-03 13:01 | disposition home or self-care (01) ==
LOC: OBOUT 10:11 → OB 10:13
PROVIDERS: PCP Physician Assistant; Visit Provider Obstetrics & Gynecology
DX: O36.8330 Maternal care for abnormalities of the fetal heart rate or rhythm, third trimester, not applicable or unspecified (principal); O11.3 Pre-existing hypertension with pre-eclampsia, third trimester; Z3A.33 33 weeks gestation of pregnancy
CPT/HCPCS: 59025; 76819; 81001; 87086; 99212; G0463

== ENCOUNTER 2025-01-07 12:52 | Outpatient (CLI) | payer BC, SELFPAY ==
--- OUTSIDE RECORDS SUMMARY | 2024-02-08 06:45 | XMS_ITS ---
Author Organization [facility] Address [address] [place] [id number] Care Team Providers Care Lead Systems Engineer Name Role Phone Destiny Seymour Unavailable [phone] Allergies Allergen (clinical drug ingredient) Drug/Non Drug Allergy documented on EMR Reaction Allergy Type Onset Date Status erythromycin Erythromycin Unknown Drug Allergy A ctive Reason For Referral Diagnosis 1 Rheumatoid arthritis , involving unspecified site, unspecified whether rheumatoid factor present (M06.9) Referral Organization [facility] Referring Provider First Name Destiny Referring Provider Last Name Dawn Referring Provider Speciality Physician Mailroom Manager Referred Provider Rheumatology, . Referred Provider Specialty Rheumatology General Notes Destiny Seymour 2023 11:16:04 AM > PT needs an appt with Pepper Bonilla Brynn 02/12/2024 11:44:56 AM > sent referral to Dr. Jacobs via [facility] website Referral Priority Routine REASON FOR VISIT [...] needed Orally Once a day, prn Active Iyhyjtbvtk-MXMK-Kwthyowm 50-325-40 MG 1 tablet as needed Orally [...] Status Risk Notes Problem Gastroesophageal reflux disease (169712074) Gastroesophageal reflux disease, unspecified whether esophagitis present (K21.9) Active confirmed Problem Rheumatoid arthritis (95987542) Rheumatoid arthritis, involving unspecified site, unspecified whether rheumatoid factor present (M06.9) Active confirmed Vital Signs Weight 191.2 lbs 02/08/2024 Blood pressure systolic 140 mm Hg 02/08/20 24 Blood pressure diastolic 90 mm Hg 024 Heart Rate 69 /min 02/08/2024 Height 66 in 02/08/2024 BMI 30.86 kg/m2 02/08/2024 Encounters Encounter Location Date Provider Diagnosis [facility] [address] [facility] [address] [place], [place] [phone] 02/08/2024 Destiny Dawn Gastroesophageal ref lux disease, [...] Notes * TANK PHILLIPOB:2000 (24 yo F)Acc No.[id number]:02/08/2024 Progress Notes Patient: FILI MONAHAN Provider: ETHEL Valentin :2000 A ge:23 Y S ex:Female Date:02/08/2024 Phone: Address:[address] [place] [address] , [place], [id number] Subjective: * Chief Complaints: * 1 . follow up ER, gerd. * HPI: G astroenterology: The pt is here for a follow up on an [facility] ER visit due to shortness [...] the morning Orally once daily , Not-Taking Uqnuwvpjtp-PZLS-Anurkxpp 50-325-40 MG Tablet 1 tablet as needed [...] * Images: Billing Information: * Visit Code: 65337 Office Visit, Est Pt., Level 4. * Procedure Codes: * Electronic signature of ETHEL Edwards on 01/07/2025 at 12:58 PM EDT Sign off status: Pending * Provider: ETHEL Valentin Date: 0 02/08/2024 Generated for Printi ng/Fajaseg/eTransmitting on: 0 01/07/2025 12:58 PM EDT History and Physical Notes * [...]
--- OUTSIDE RECORDS SUMMARY | 2024-04-24 07:30 | XMS_ITS ---
Author Organization [facility] Address [address] [facility] [address] [place] [id number] Care Team Providers Care Telephone Appointment Clerk Name Role Phone Destiny Seymour Unavailable [phone] Allergies Allergen (clinical drug ingredient) Drug/Non Drug [...] Referral Organization [facility] Referring Provider First Name Destiny Referring Provider Last Name Dawn Referring Provider Speciality Physician Route Carrier Referred Provider Rheumatology, . Referred Provider Specialty [...] unspecified site (M05.9) Active confirmed Vital Signs Weight 187.0 lbs 04/24/2024 Blood pressure systolic 134 mm Hg 04/24/20 24 Blood pressure diastolic 100 mm Hg 024 Heart Rate 85 /min 04/24/2024 Height 66 in 04/24/2024 BMI 30.18 kg/m2 04/24/2024 Encounters Encounter Location Date Provider Diagnosis [facility] [address] [place], [place] [id number] 04/24/2024 Destiny Seymour Strep pharyngitis J0 2.0 [...] Notes * TANK ROSENOB:2000 (24 yo F)Acc No.[id number]:04/24/2024 Progress Notes Patient: FILI MONAHAN Provider: ETHEL Valentin :2000 A ge:23 Y S ex:Female Date:04/24/2024 Phone: Address:[address] [place] [address] [address] [place], [id number] Subjective: * Chief Complaints: * 1 . [...] the morning Orally once daily , Discontinued Xtyexhncep-OQZA-Iinqevbf 50-325-40 MG Tablet 1 tablet as needed [...] * Images: Billing Information: * Visit Code: 49392 Office Visit, Est Pt., Level 3. * Procedure Codes: 79485 STREP A ASSAY W/OPTIC. Modifiers: QW * Electronic signature of ETHEL Edwards on 01/07/2025 at 12:58 PM EDT Sign off status: Pending * Provider: ETHEL Valentin Date: 1 Generated for Melisa gonzalez/Anel/Misbahitting on: 0 01/07/2025 12:58 PM EDT History [...]
--- OUTSIDE RECORDS SUMMARY | 2024-06-14 09:15 | XMS_ITS ---
Author Organization Bradley Address 1210 [facility] [address] [place] [phone] Care Team Providers Care Cable Installer Name Role Phone Dawn Destiny Unavailable [phone] Allergies Allergen (clinical drug ingredient) Drug/Non Drug [...] Encounter Location Date Provider Diagnosis [facility] [address] [place] [phone] 06/14/2024 Destiny Seymour Plan Of Treatment No Information Progress Notes * TANK PHILLIPOB:2000 (24 yo F)Acc No.[id number]:06/14/2024 Progress Notes Patient: FILI MONAHAN Provider: ETHEL Valentin :2000 A ge:24 Y S ex:Female Date:06/14/2024 Phone: Address:[address] [place] [address] Dr SE[place] Espinal-[id number] Subjective: * Chief Complaints: * 1 . [...] 08/15/2023 Generated for Melisa gonzalez/Anel/Misbahitting on: 0 01/07/2025 12:58 PM EDT History and Physical Notes * HPI (History of Present Illness) Category Sub-Category Detail Notes Category Not es HPI Patient is here today for Pt is here toda y for a check up
--- OUTSIDE RECORDS SUMMARY | 2025-01-07 12:58 | XMS_ITS | Patient Health Record ---
Author Organization [facility] Address [address] [place] [id number] Care Team Providers Care Tractor Expert Name Role Phone Destiny Seymour Unavailable [phone] Allergies Allergen (clinical drug ingredient) Drug/Non Drug [...] Last Name Dawn Referring Provider Speciality Physician Rn Surgical Pcu Referred Provider Rheumatology, . Referred Provider Specialty Rheumatology General Notes Destiny Seymour 2023 11:16:04 AM > PT needs an appt with Pepper Bonilla Brynn 02/12/2024 11:44:56 AM > sent referral to Dr. Jacobs via [facility] website Referral Priority Routine Diagnosis 1 Rheumatoid arthritis with positive rheumatoid factor, involving unspecified site (M05.9) Referral Organization [facility]olas Referring Provider First Name Destiny Referring Provider Last Name Dawn Referring Provider Speciality Physician Rn Surgical Pcu Referred Provider Rheumatology, . Referred Provider Specialty [...] W/U Status Risk Notes Problem Supraventricular tachycardia (8592930) SVT (supraventricular tachycardia) (I47.1) Active confirmed Problem Paresthesia (77877689) Paresthesia (R20.2) Active confirmed Problem Mixed anxiety and depressive disorder (822625889) Depression with anxiety (F41.8) Active confirmed Problem Thyroid nodule (070933930) Thyroid nodule (E04.1) Active confirmed Problem Panic disorder (609119046) Panic attacks (F41.0) Active confirmed Problem Refractory migraine with aura (300721141) Intractable migraine with aura without status migrainosus (G43.119) Active confirmed Problem Cardiac arrhythmia (082823311) Cardiac arrhythmia, unspecified cardiac arrhythmia type (I49.9) Active confirmed Problem Refractory migraine (376064932) Intractable migraine without status migrainosus, unspecified migraine type (G43.919) Active confirmed Problem Thyromegaly (1249795) Thyromegaly (E01.0) Active confirmed Problem Migraine (88524024) Migraine syn drome (G43.909) Active confirmed Problem Gastroesophageal reflux disease (504216268) Gastroesophageal reflux disease, unspecified whether esophagitis present (K21.9) Active confirmed Problem Rheumatoid arthritis (14962890) Rheumatoid arthritis, involving unspecified site, unspecified whether rheumatoid factor present (M06.9) Active confirmed Problem Rheumatoid arthritis (82656535) Rheumatoid arthritis with positive rheumatoid factor, involving unspecified site (M05.9) Active confirmed Problem Tobacco user (658238259) Vaping nicotine dependence, non-tobacco product (F17.200) Active confirmed Problem Drug-induced insomnia (38335355110631) 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) Active confirmed Problem Compression of brain (71537134) 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) Active confirmed Vital Signs Heart Rate 85 /min 04/24/2024 Blood pressure diastolic 100 mm Hg 04/24/2024 Height 66 in 04/24/2024 Blood pressure systolic 134 mm Hg 04/24/2024 Weight 187.0 lbs 04/24/2024 BMI 30.18 kg/m2 04/24/2024 Encounters Encounter Location Date Provider [facility] [address] [place] [id number] 02/08/2024 Destiny Seymour Gastroesophageal ref lux disease, unspecified whether esophagitis present K21.9 and Rheumatoid arthritis, involving unspecified site, unspecified whether rheumatoid factor present M06.9 [facility] [address] [place] [id number] 04/24/2024 Destiny Seymour Strep pharyngitis J0 2.0 and Rheumatoid arthritis with positive rheumatoid factor, involving unspecified site M05.9 [facility] [facility] [address] [place] [id number] 08/01/2024 Destiny Seymour Assessments Encounter Date Diagnosis [...] WANG [employer]UE [employer]BL[employer] SHIELD [address] [place] [address] [id number] 002 FILI PHILLIP Self - patient is [...]
--- OUTSIDE RECORDS SUMMARY | 2025-01-07 12:58 | XMS_ITS | Clinical Summary ---
Author Organization [facility] Address [address] [facility] [address] [place] [address] Phone Care Team Providers Care Finishing Frame Runner Name Role Phone Unavailable Primary Care Provider Unavailabl e Allergies No known active allergies Active Problems Problem Noted Date Diagnosed Date S/P RF ablation operation for arrhythmia 023 Overview (03/02/2023): EPS, SVT Ablation 11/25/22-Dr. Demetrio Pearson @ [facility] SVT (supraventricular tachycardia) Surgical History Surgery Date Site/Laterality Comments CYST REMOVAL 08/31/2020 - 09/30/2020 Right R Hand Cyst Removal ABLATION OF DYSRHYTHMIC FOCUS 11/25/2022 EPS, SVT Ablation-Dr. Demetrio Pearson @ [facility] Medical History Medical History Date [...]
--- OUTSIDE RECORDS SUMMARY | 2025-01-07 12:58 | XMS_ITS | Clinical Summary ---
Author Organization [facility] Address [address] [place] [address] Care Team Providers Care Broach Grinder Name Role Phone Leah Jasso APRN Primary Care Provider [phone] Family History Medical History Relation Name Comments [...] 19+ 3-dose series) 2020 UKY-Pap Smear 2022 [id number] Vaccine (1 - 20 24-25 season) 2024 [...] to [place] [address] [place] Care Teams Broach Grinder Relationship Specialty Start Date End Date Leah Jasso APRN [address] [facility] [address] [place] [address] PCP - General 11/13/20
--- NOTE | 2025-01-07 13:00 | US_ITS ---
PROCEDURE: US OB BIOPHYSICAL PROFILE CLINICAL INDICATION: needs for early Preeclampsia COMPARISON: US US OB <= 14 WEEKS FETUS from 06/24/2024 US US OB /MATERNAL DETAIL from 09/26/2024 US US OB FOLLOW UP from 10/24/2024 US US OB TRANSVAGINAL from 10/24/2024 US OB FOLLOW UP from 11/21/2024 US US OB BIOPHYSICAL PROFILE from 12/10/2024 US OB BIOPHYSICAL PROFILE from 12/17/2024 US OB BIOPHYSICAL PROFILE from 12/24/2024 US OB BIOPHYSICAL PROFILE from 12/31/2024 US OB BIOPHYSICAL PROFILE from 01/03/2025 FINDINGS: Transabdominal sonographic images of the uterus were obtained. From her established due date she is 34weeks 2days. The following parameters are obtained: Viable Fetus in the cephalic presentation with an anterior placenta grade 2-3. Measurements: heart Rate = 149bpm Amniotic fluid index: 9.7cm, MVP 3.50 cm Qualitative AFV:2 Breathing movements: 2 Gross Body Movements: 2 Tone: 2 Biophysical profile score: 8 No obvious anomalies evident.Kidneys, stomach, bladder, three-vessel cord appear normal. Image 31 shows the nose and lips. The angle may be off on this picture but it looks like there may be a defect in the upper lip. Would suggest repeat scan to have a good look at this. I looked at other previous images and could not find any good pictures of the nose and upper lip. IMPRESSION: 1. Viable fetus in the cephalic presentation with an anterior placenta grade 2-3. 2. The fluid is within normal limits with an amniotic fluid index 9.7 cm, MVP 3.50 cm. 3. Biophysical profile is 8/8 with good breathing movement and movement seen. 4. Limited anatomical scan appears normal. 5. On image 31 it appears that there is a defect in the upper lip. This may just be as result of the angle of the image but would suggest repeat scan for completeness. I reviewed all the other ultrasounds and there were no good views of the upper lip. Dictated by: Oliverio Amanda MD 01/07/2025 14:59 Oliverio Amanda MD in OV 01/07/2025 14:59
== END 2025-01-07 23:59 | disposition home or self-care (01) ==
LOC: RAD 12:52
PROVIDERS: PCP Physician Assistant; Visit Provider Obstetrics & Gynecology
DX: O28.2 Abnormal cytological finding on antenatal screening of mother (principal); O11.3 Pre-existing hypertension with pre-eclampsia, third trimester; O36.8330 Maternal care for abnormalities of the fetal heart rate or rhythm, third trimester, not applicable or unspecified; Z3A.34 34 weeks gestation of pregnancy
CPT/HCPCS: 76819; 86403

== ENCOUNTER 2025-01-10 10:01 | Outpatient (CLI) | payer BC, SELFPAY ==
--- OUTSIDE RECORDS SUMMARY | 2024-02-08 06:45 | XMS_ITS ---
Author Organization [facility] Address [address] [place] [phone] Care Team Providers Care Toolmaker Grade Three Name Role Phone Destiny Seymour Unavailable [phone] Allergies Allergen (clinical drug ingredient) Drug/Non Drug Allergy documented on EMR Reaction Allergy Type Onset Date Status erythromycin Erythromycin Unknown Drug Allergy A ctive Reason For Referral Diagnosis 1 Rheumatoid arthritis , involving unspecified site, unspecified whether rheumatoid factor present (M06.9) Referral Organization [facility] Referring Provider First Name Destiny Referring Provider Last Name Dawn Referring Provider Speciality Physician Real Estate Agent/Broker Referred Provider Rheumatology, . Referred Provider Specialty Rheumatology General Notes Destiny Seymour 2023 11:16:04 AM > PT needs an appt with Pepper Bonilla Brynn 02/12/2024 11:44:56 AM > sent referral to Dr. Jacobs via [facility] website Referral Priority Routine REASON FOR VISIT [...] needed Orally Once a day, prn Active Vdzmrobrln-OTEC-Pfoptges 50-325-40 MG 1 tablet as needed Orally [...] W/U Status Risk Notes Problem Gastroesophageal reflux disease, unspecified whether esophagitis present (K21.9) Active confirmed Problem Rheumatoid arthritis (40474232) Rheumatoid arthritis, involving unspecified site, unspecified whether rheumatoid factor present (M06.9) Active confirmed Vital Signs Blood pressure systolic 140 mm Hg 02/08/20 24 Blood pressure diastolic 90 mm Hg 024 Heart Rate 69 /min 02/08/2024 Height 66 in 02/08/2024 Weight 191.2 lbs 02/08/2024 BMI 30.86 kg/m2 02/08/2024 Encounters Encounter Location Date Provider Diagnosis [facility] [address] [facility] [address] [place], [place] [phone] 02/08/2024 Destiny Seymour Gastroesophageal ref lux disease, [...] Notes * TANK PHILLIPOB:2000 (24 yo F)Acc No.[id number]:02/08/2024 Progress Notes Patient: FILI MONAHAN Provider: ETHEL Valentin :2000 A ge:23 Y S ex:Female Date:02/08/2024 Phone: Address:[address] [place] [address] , [place], [id number] Subjective: * Chief Complaints: * 1 . follow up ER, gerd. * HPI: G astroenterology: The pt is here for a follow up on an [facility] ER visit due to shortness of breath [...] the morning Orally once daily , Not-Taking Bdczsiiiiz-TPAO-Jrzxrsyd 50-325-40 MG Tablet 1 tablet as needed [...] * Images: Billing Information: * Visit Code: 57476 Office Visit, Est Pt., Level 4. * Procedure Codes: * Electronic signature of ETHEL Edwards on 01/10/2025 at 10:04 AM EDT Sign off status: Pending * Provider: ETHEL Valentin Date: 0 02/08/2024 Generated for Printi ng/Faxing/eTransmitting on: 0 01/10/2025 10:04 AM EDT History and Physical Notes * [...]
--- OUTSIDE RECORDS SUMMARY | 2024-04-24 07:30 | XMS_ITS ---
Author Organization Bradley Address [address] [facility] [address] [id number] Care Team Providers Care Drafter Detail Name Role Phone Destiny Seymour Unavailable [phone] Allergies Allergen (clinical drug ingredient) Drug/Non Drug [...] Last Name Dawn Referring Provider Speciality Physician Research Quality Assurance Specialist Referred Provider Rheumatology, . Referred Provider Specialty [...] 04/24/2024 Encounters Encounter Location Date Provider Diagnosis [facility] [address] [place], [place] [id number] 04/24/2024 Destiny Seymour Strep pharyngitis J0 2.0 [...] Notes * TANK ROSENOB:2000 (24 yo F)Acc No.[id number]:04/24/2024 Progress Notes Patient: FILI MONAHAN Provider: ETHEL Valentin :2000 A ge:23 Y S ex:Female Date:04/24/2024 Phone: Address:[address] [place] [address] Brad Ayon enmanuel, [id number] Subjective: * Chief Complaints: * 1 . [...] the morning Orally once daily , Discontinued Wzvsbmoqsy-OXMO-Larukjgx 50-325-40 MG Tablet 1 tablet as needed [...] * Images: Billing Information: * Visit Code: 78138 Office Visit, Est Pt., Level 3. * Procedure Codes: 11167 STREP A ASSAY W/OPTIC. Modifiers: QW * Electronic signature of ETHEL Edwards on 01/10/2025 at 10:05 AM EDT Sign off status: Pending * Provider: ETHEL Valentin Date: 1 Generated for Melisa gonzalez/Anel/Misbahitting on: 0 01/10/2025 10:05 AM EDT History and Physical Notes * [...]
--- OUTSIDE RECORDS SUMMARY | 2024-06-14 09:15 | XMS_ITS ---
Author Organization [place] Address 1210 [facility] [address] [place] [phone] Care Team Providers Care Tanker Truck Driver Name Role Phone Dawn Destiny Unavailable [phone] Allergies Allergen (clinical drug ingredient) Drug/Non Drug [...] Encounter Location Date Provider Diagnosis Nikolas 1210 [facility] [address] [place] [phone] 06/14/2024 Destiny Seymour Plan Of Treatment No Information Progress Notes * TANK PHILLIPOB:2000 (24 yo F)Acc No.[id number]:06/14/2024 Progress Notes Patient: FILI MONAHAN Provider: ETHEL Valentin :2000 A ge:24 Y S ex:Female Date:06/14/2024 Phone: Address:[address] [place] [address] Dr [place] Espinal-[id number] Subjective: * Chief Complaints: * 1 . [...] 08/15/2023 Generated for Melisa gonzalez/Anel/Misbahitting on: 0 01/10/2025 10:04 AM EDT History and Physical Notes * HPI (History of Present Illness) Category Sub-Category Detail Notes Category Not es HPI Patient is here today for Pt is here toda y for a check up
--- OUTSIDE RECORDS SUMMARY | 2025-01-10 10:04 | XMS_ITS | Patient Health Record ---
Author Organization [facility] Address [address] [place] [id number] Care Team Providers Care Power Line Installer Name Role Phone Destiny Seymour Unavailable [phone] Allergies Allergen (clinical drug ingredient) Drug/Non Drug [...] Last Name Dawn Referring Provider Speciality Physician Shoe Cementer Referred Provider Rheumatology, . Referred Provider Specialty [...] Last Name Dawn Referring Provider Speciality Physician Shoe Cementer Referred Provider Rheumatology, . Referred Provider Specialty [...] W/U Status Risk Notes Problem Supraventricular tachycardia (1328174) SVT (supraventricular tachycardia) (I47.1) Active confirmed Problem Paresthesia (49443566) Paresthesia (R20.2) Active confirmed Problem Mixed anxiety and depressive disorder (233040410) Depression with anxiety (F41.8) Active confirmed Problem Thyroid nodule (583209869) Thyroid nodule (E04.1) Active confirmed Problem Panic disorder (980073106) Panic attacks (F41.0) Active confirmed Problem Refractory migraine with aura (770753129) Intractable migraine with aura without status migrainosus (G43.119) Active confirmed Problem Cardiac arrhythmia (555857914) Cardiac arrhythmia, unspecified cardiac arrhythmia type (I49.9) Active confirmed Problem Refractory migraine (249083938) Intractable migraine without status migrainosus, unspecified migraine type (G43.919) Active confirmed Problem Thyromegaly (6402018) Thyromegaly (E01.0) Active confirmed Problem Migraine (49272628) Migraine syn drome (G43.909) Active confirmed Problem Gastroesophageal reflux disease (411440432) Gastroesophageal reflux disease, unspecified whether esophagitis present (K21.9) Active confirmed Problem Rheumatoid arthritis (96706089) Rheumatoid arthritis, involving unspecified site, unspecified whether rheumatoid factor present (M06.9) Active confirmed Problem Rheumatoid arthritis (85862645) Rheumatoid arthritis with positive rheumatoid factor, involving unspecified site (M05.9) Active confirmed Problem Tobacco user (932056146) Vaping nicotine dependence, non-tobacco product (F17.200) Active confirmed Problem Drug-induced insomnia (90655692141350) 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) Active confirmed Problem Compression of brain (18739375) 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) Active confirmed Vital Signs Heart Rate 85 /min 04/24/2024 Blood pressure diastolic 100 mm Hg 04/24/2024 Height 66 in 04/24/2024 Blood pressure systolic 134 mm Hg 04/24/2024 Weight 187.0 lbs 04/24/2024 BMI 30.18 kg/m2 04/24/2024 Encounters Encounter Location Date Provider [facility] [address] [place] [id number] 02/08/2024 Destiny Seymour Gastroesophageal ref lux disease, unspecified whether esophagitis present K21.9 and Rheumatoid arthritis, involving unspecified site, unspecified whether rheumatoid factor present M06.9 [facility] [address] [place] [id number] 04/24/2024 Destiny Seymour Strep pharyngitis J0 2.0 and Rheumatoid arthritis with positive rheumatoid factor, involving unspecified site M05.9 [facility] [address] [place] [id number] 08/01/2024 Destiny Seymour Assessments Encounter Date Diagnosis [...] WANG BLUE CROSSBLUE SHIELD [address] [place] [address] [id number] 002 FILI PHILLIP Self - patient is [...]
--- OUTSIDE RECORDS SUMMARY | 2025-01-10 10:04 | XMS_ITS | Clinical Summary ---
Author Organization [facility] Address [address] [place] [address] Care Team Providers Care Air Traffic Control Specialist Center Name Role Phone Leah Jasso APRN Primary Care Provider [phone] Family History Medical History Relation Name Comments [...] 19+ 3-dose series) 2020 UKY-Pap Smear 2022 [id number] Vaccine (1 - 20 24-25 season) 2024 [...] to [place] this [place] [id number] WANG Care Teams Air Traffic Control Specialist Center Relationship Specialty Start Date End Date Leah Jasso APRN [address] [facility] [address] [place] [address] PCP - General 11/13/20
[2025-01-10 10:10] VITALS: BP 150/98; PULSE 94; RESP 17; TEMP 36.9; O2SAT 98
[2025-01-10 10:21] VITALS: BMI 33.4
[2025-01-10 10:26] LABS: Microscopic, Urine URINE MICROSCOPIC (MICROSCOPIC)
[2025-01-10 10:33] VITALS: BMI 33.4
[2025-01-10 10:40] LABS: Bilirubin,Urine Negative (Negative); Color,Urine YELLOW (Yellow); Glucose,Urine (UA) Negative (Negative); Ketones,Urine Negative (Negative); Leukocyte Esterase,Urine 3+ (Negative); PH,Urine 7.0 (5.0-8.5); Protein,Urine Negative (Negative); Specific Gravity, Urine 1.015 (1.005-1.030); Urobilinogen,Urine 1.0 EU/dl (0.2)
[2025-01-10 10:41] VITALS: BP 126/66
[2025-01-10 10:50] LABS: Bacteria,Urine 2+ /lpf; RBC,Urine Occasional #/hpf (0-3); WBC,Urine 20-50 #/hpf (0-3)
== END 2025-01-10 11:46 | disposition home or self-care (01) ==
LOC: OBOUT 10:03 → OB 10:04
PROVIDERS: PCP Physician Assistant; Visit Provider Obstetrics & Gynecology
DX: O36.8330 Maternal care for abnormalities of the fetal heart rate or rhythm, third trimester, not applicable or unspecified (principal); O11.3 Pre-existing hypertension with pre-eclampsia, third trimester; Z3A.32 32 weeks gestation of pregnancy
CPT/HCPCS: 59025; 81001; 87086; 99212; G0463

== ENCOUNTER 2025-01-17 20:01 | Observation (INO) | payer BC, SELFPAY ==
--- OUTSIDE RECORDS SUMMARY | 2024-02-08 06:45 | XMS_ITS ---
Author Organization [facility] Address [address] [place] [phone] Care Team Providers Care Warehouse Associate Driver Name Role Phone Destiny Seymour Unavailable [phone] Allergies Allergen (clinical drug ingredient) Drug/Non Drug Allergy documented on EMR Reaction Allergy Type Onset Date Status erythromycin Erythromycin Unknown Drug Allergy A ctive Reason For Referral Diagnosis 1 Rheumatoid arthritis , involving unspecified site, unspecified whether rheumatoid factor present (M06.9) Referral Organization [facility] Referring Provider First Name Destiny Referring Provider Last Name Dawn Referring Provider Speciality Physician Merchandise Director Referred Provider Rheumatology, . Referred Provider Specialty Rheumatology General Notes Destiny Seymour 2023 11:16:04 AM > PT needs an appt with Pepper Bonilla Brynn 02/12/2024 11:44:56 AM > sent referral to Dr. Jacobs via [facility] website Referral Priority Routine REASON FOR [...] needed Orally Once a day, prn Active Buyzpcwafh-WNGE-Clsixjfq 50-325-40 MG 1 tablet as needed Orally [...] Status Risk Notes Problem Gastroesophageal reflux disease (740158538) Gastroesophageal reflux disease, unspecified whether esophagitis present (K21.9) Active confirmed Problem Rheumatoid arthritis (18037937) Rheumatoid arthritis, involving unspecified site, unspecified whether rheumatoid factor present (M06.9) Active confirmed Vital Signs Blood pressure systolic 140 mm Hg 02/08/20 24 Blood pressure diastolic 90 mm Hg 024 Heart Rate 69 /min 02/08/2024 Height 66 in 02/08/2024 Weight 191.2 lbs 02/08/2024 BMI 30.86 kg/m2 02/08/2024 Encounters Encounter Location Date Provider Diagnosis [facility] [address] [facility] [address] [place], [place] [phone] 02/08/2024 Destiny Dawn Gastroesophageal ref lux disease, [...] Notes * TANK PHILLIPOB:2000 (24 yo F)Acc No.[id number]:02/08/2024 Progress Notes Patient: FILI MONAHAN Provider: ETHEL Valentin :2000 A ge:23 Y S ex:Female Date:02/08/2024 Phone: Address:[address] [place] [address] , [place], [id number] Subjective: * Chief Complaints: * 1 . follow up ER, gerd. * HPI: G astroenterology: The pt is here for a follow up on an [facility] ER visit due to shortness [...] the morning Orally once daily , Not-Taking Ttwrpujwjj-PFTQ-Ffiqmlcg 50-325-40 MG Tablet 1 tablet as needed [...] * Images: Billing Information: * Visit Code: 39778 Office Visit, Est Pt., Level 4. * Procedure Codes: * Electronic signature of ETHEL Edwards on 01/17/2025 at 05:29 PM EDT Sign off status: Pending * Provider: ETHEL Valentin Date: 02/08/2024 Generated for Printi ng/Fajaseg/eTransmitting on: 01/17/2025 05:29 PM EDT History and Physical Notes * [...]
--- OUTSIDE RECORDS SUMMARY | 2024-04-24 07:30 | XMS_ITS ---
Author Organization Bradley Address [address] [facility] [address] [phone] Care Team Providers Care Rn Peritoneal Dialysis Name Role Phone Destiny Seymour Unavailable [phone] Allergies Allergen (clinical drug ingredient) Drug/Non Drug [...] Last Name Dawn Referring Provider Speciality Physician [employer] Wireman Referred Provider Rheumatology, . Referred Provider Specialty [...] 04/24/2024 Encounters Encounter Location Date Provider Diagnosis [facility] [address] [place], [place] [phone] 04/24/2024 Destiny Seymour Strep pharyngitis J0 2.0 [...] Notes * TANK ROSENOB:2000 (24 yo F)Acc No.[id number]:04/24/2024 Progress Notes Patient: FILI MONAHAN Provider: ETHEL Valentin :2000 A ge:23 Y S ex:Female Date:04/24/2024 Phone: Address:[address] [place] [address] Brad Ayon enmanuel, [id number] Subjective: * Chief Complaints: * 1 . [...] the morning Orally once daily , Discontinued Vthvphoifb-JBSO-Vynhlqzq 50-325-40 MG Tablet 1 tablet as needed [...] * Images: Billing Information: * Visit Code: 16132 Office Visit, Est Pt., Level 3. * Procedure Codes: 90615 STREP A ASSAY W/OPTIC. Modifiers: QW * Electronic signature of ETHEL Edwards on 01/17/2025 at 05:28 PM EDT Sign off status: Pending * Provider: ETHEL Valentin Date: 1 Generated for Melisa gonzalez/Anel/Misbahitting on: 0 01/17/2025 05:28 PM EDT History and Physical Notes * [...]
--- OUTSIDE RECORDS SUMMARY | 2024-06-14 09:15 | XMS_ITS ---
Author Organization [place] Address 1210 [facility] [address] [place] [phone] Care Team Providers Care Supervisor Shipping Name Role Phone Dawn Destiny Unavailable [phone] Allergies Allergen (clinical drug ingredient) Drug/Non Drug [...] Encounter Location Date Provider Diagnosis Nikolas 1210 [facility] [address] [place] [phone] 06/14/2024 Destiny Seymour Plan Of Treatment No Information Progress Notes * TANK PHILLIPOB:2000 (24 yo F)Acc No.[id number]:06/14/2024 Progress Notes Patient: FILI MONAHAN Provider: ETHEL Valentin :2000 A ge:24 Y S ex:Female Date:06/14/2024 Phone: Address:[address] [place] [address] Dr SE[place] Espinal-[id number] Subjective: * Chief Complaints: * 1 . [...] 08/15/2023 Generated for Melisa gonzalez/Anel/Misbahitting on: 0 01/17/2025 05:29 PM EDT History and Physical Notes * HPI (History of Present Illness) Category Sub-Category Detail Notes Category Not es HPI Patient is here today for Pt is here toda y for a check up
--- OUTSIDE RECORDS SUMMARY | 2024-12-12 13:26 | XMS_ITS | Encounter Summary ---
Author Organization [facility] Address [address] [id number] Care Team Providers Care Systems Architecture Analyst Name Role Phone Destiny Seymour Primary Care Provider [phone] Reason for Referral * Diagnostic Imaging (Routine) - Closed Specialty Diagnoses / Procedures Referred By Contac t Referred To Contact Radiology Diagnoses Paroxysmal SVT (supraventricular tachycardia) Chronic hypertension complicating or reason for care during , second trimester Procedures [facility] [place] [address] [place] [address] [place] [address] Phone: tel: fax: Referral ID Status Reason Start Date Expiration Date Visits Re quested Visits Authorized [id number] Closed 11/05/2024 02/04/2026 1 1 Reason for Visit * Diagnostic Imaging (Routine) - Closed Specialty Diagnoses / Procedures Referred By Contac t Referred To Contact Radiology Diagnoses Paroxysmal SVT (supraventricular tachycardia) Chronic hypertension complicating or reason for care during , second trimester Procedures [facility] Diagnostic [place] John Mendoza MD [address] [facility] [address] [place] [address] Phone: tel: fax: Referral ID Status Reason Start Date Expiration Date Visits Re quested Visits Authorized [id number] Closed 11/05/2024 02/04/2026 1 1 Encounter Details Date Type Department Care Team (Late st Contact Info) Description 12/12/2024 1:26 PM EDT - 12/12/2024 11:59 PM EDT Hospital Encounter [facility] PER DIAG CTR [address] [place] [address] John Mendoza MD [address] [place] [address] Paroxysmal SVT (supraventricular tachycardia); Chronic hypertension complicating [...] As Needed for Shortness of Air. 10/31/2024 bisoprolol (ZEBeta) 5 MG tablet Take 1 tablet by mouth Daily. 2.5mg daily ferrous sulfate 324 (65 Fe) MG tablet delayed-release EC tablet Take 1 tablet by mouth Daily With Breakfast. labetalol (NORMODYNE) 200 MG tablet Take 1 tablet by mouth Every 12 (Twelve) Hours. 10/18/2024 MAGnesium-Oxide 400 (240 Mg) MG tablet Take 1 tablet by mouth Daily. 08/24/2024 NIFEdipine CC (ADALAT CC) 30 MG 24 hr tablet Take 1 tablet by mouth Daily. 11/29/2024 nystatin (MYCOSTATIN) 949763 UNIT/GM powder As Needed. 08/23/2024 ondansetron ODT (ZOFRAN-ODT) [address] 1 tablet on the tongue Every 6 (Six) Hours As Needed. 10/11/2024 vitamin (, CLASSIC, vitamin) tablet Take by mouth Daily. documented as of this encounter Plan of Treatment Not on file documented as of this encounter Procedures Procedure Name Priority Date/Time Associated Diagnosis Comments [facility] Routine 12/12/2024 2:10 PM EDT Paroxysmal SVT (supraventricular tachycardia) Chronic hypertension complicating or reason for care during , second trimester documented in this encounter Results * [facility] (12/12/2024 2:10 PM EDT) Anatomical Region Laterality Modality Ultrasound 12/12/2024 2:01 PM EDT Narrative 12/12/2024 2:18 PM EDT PAT NAME: FILI PHILLIP [facility] REC#: [id number] DA: 2000 PAT GEND: F PAT TYPE: O EXAM XIAO: [id number] REF PHYS IFTIKHARPEPITO Comparison Studies The findings of this study [...] EFW (oz) 11 oz EFW by: Hadlock ([id number]-LN-[id number]-FL) Extended Cav. septi pel. tr 4.8 mm Social Services Manager 6.1 mm Nasal bone 10.4 mm Head [...] Normal Heart / Thorax 3-vessel view: Normal 0-alamsc-qaogiqx view: normal Stomach: Appears normal Kidneys: Appears [...] movements 2: tone 2: Amniotic fluid volume 8 Biophysical profile score Consultation / Office Visit Office note to follow Impression Today's exam reveals a SIUP in cephalic presentation with biometry consistent with dates. Limited anatomic survey appears normal. The DUSTIN and BPP are normal. Recommendation 4 weeks. Coding ======= Description: 90363-86 Follow Up Ultrasound Description: 56919-37 BPP without NST Platinum Smith: Delmy Xiong RDMS Physician: John Mendoza MD, FACOG Electronically signed by: John Mendoza MD, FACOG at: 14:18 Procedure Note John Mendoza MD - 12/12/2024 PAT NAME: FILI PHILLIP MED REC#: [id number] DA: 2000 PAT GEND: F PAT TYPE: O EXAM XIAO: [id number] REF PHYS PEPITO BUITRAGO Comparison Studies The findings of this study are compared to the prior ultrasound studydated 11/05/24 Patient Status Outpatient Indication ======== CHTN. Rheumatoid arthritis. Maternal chiari malformation. Hx SVT withablation 2022. Vapes. Obesity BMI 33. Maternal Assessment Dnhsqk186 cm Cruchp42 kg Weight (lb)205 lb BMI33.34 kg/m Method ======= Transabdominal ultrasound examination. View: Adequate view ========= Beltran . Number of fetuses: 1 Dating ====== Method of dating:based on stated TIFFANY GA by prior polyyhsrrb17 w + 4 d TIFFANY by prior assessment:02/16/2025 Ultrasound examination on:12/12/2024 GA by U/S based upon:AC, BPD, Femur, HC GA by U/S32 w + 0 d TIFFANY by U/S:02/06/2025 Previous dating:based on stated TIFFANY, selected on 11/05/2024 Agreed TIFFANY of previous datin02/16/2025 Assigned:based on stated TIFFANY, selected on 12/12/2024 Assigned GA30 w + 4 d Assigned TIFFANY:02/16/2025 ochcyx470 d Biometry Standard BPD81.3 mm 32w 5d 92% Hadlock IRH686.8 mm 33w 6d 98% Ermelinda HC300.1 mm 33w 2d 86% Hadlock AC256.3 mm 29w 6d 24% Hadlock Femur61.3 mm 31w 6d 71% Hadlock Hwoblfc20.5 mm 30w 4d 55% Ermelinda HC / AC1.17 EFW1,681 g 30w 4d 52% Hadlock EFW (lb)3 lb EFW (oz)11 oz EFW by:Hadlock (HTK-IR-NQ-FL) Extended Cav. septi pel. tr4.8 mm Vp6.1 mm Nasal bone10.4 mm Head / Face / Neck Cephalic index0.78 39% Nicolaides Extremities / Bony Struc FL / BPD0.75 FL / HC0.20 FL / AC0.24 Other Structures IRB530 bpm General Evaluation Cardiac activity present. FHR [...] LVOT view:Normal Heart / Thorax 3-vessel view:Normal 4-xufpjk-zurrzdk view:normal Stomach:Appears normal Kidneys:Appears normal Bladder:Appears normal [...] are normal. Recommendation 4 weeks. Coding ======= Description:96750-49 Follow Up Ultrasound Description: BPP without NST Platinum Smith: Delmy Xiong RDMS Physician: John Mendoza MD, FACOG Electronically signed by: John Mendoza MD, FACOG at: 14:18 us John Mendoza MD IMG US ORDERABLES Final Result documented in this encounter Visit Diagnoses Diagnosis Paroxysmal SVT (supraventricular tachycardia) Chronic hypertension complicating or reason for care during , second trimester documented in this encounter Care Teams Systems Architecture Analyst Relationship Specialty Start Date End Date Destiny Seymour PA [address] [place] [address] [facility] [address] [facility] [place] [address] PCP - General Physician Printing Gray Cloth Tender 09/14/22 documented as of this encounter
--- OUTSIDE RECORDS SUMMARY | 2024-12-12 13:45 | XMS_ITS | Encounter Summary ---
Author Organization [facility] Address [address] [place] [id number] Care Team Providers Care Knurling Machine Tender Name Role Phone Destiny Seymour Primary Care Provider [phone] Reason for Referral * Diagnostic Imaging (Routine) - Authorized Specialty Diagnoses / Procedures Referred By Contac t Referred To Contact Radiology Diagnoses Chronic hypertension complicating or reason for care during , second trimester Procedures [facility] David Mendoza MD [address] [facility] [address] [place] [address] Phone: tel: fax: [facility] US PER DIAG CTR [address] [place] [address] Phone: tel: Referral ID Status Reason Start Date Expiration Date V isits Requested Visits Authorized [id number] Authorized 12/13/2024 03/14/2026 1 1 Reason for Visit * Reason Comments CHTN; maternal SVT; RA; maternal chiari malf. Encounter Details Date Type Department Care Team (Late st Contact Info) Description 12/12/2024 1:45 PM EDT Office Visit [facility] MATERNAL MEDICINE [address] [facility] [address] [place] [address] David Mendoza MD [address] [facility] [address] [place] [id number] Chronic hypertension complicating or reason for care [...] mouth Daily., Disp: , Rfl: nystatin (MYCOSTATIN) 572000 UNIT/GM powder, As Needed., Disp: , Rfl: [...] [facility]. David Mendoza MD, FACOG Maternal Medicine, [facility] documented in this encounter Plan of Treatment Scheduled Orders Name Type Priority Associated Diagnoses Orde r Schedule [facility] Imaging Routine Chronic hypertension complicating or reason for care during , second trimester Expected: 12/18/2024 (Approximate), Expires: 12/13/2025 documented as of this encounter Visit Diagnoses Diagnosis Chronic hypertension complicating or reason for care during , second trimester- Primary documented in this encounter Care Teams Knurling Machine Tender Relationship Specialty Start Date End Date Destiny Seymour PA [address] [place] [address] [facility] [address] [place] [address] PCP - General Physician Poultry Dressing Worker 09/14/22 documented as of this encounter
[2025-01-17] VITALS (14 sets, daily range): BP systolic 141–176; BP diastolic 85–105; PULSE 64–86; RESP 16–18; TEMP 36.8–36.9; O2SAT 97–100; BMI 34.0
--- OUTSIDE RECORDS SUMMARY | 2025-01-17 17:29 | XMS_ITS | Clinical Summary ---
Author Organization [facility] Address [address] [place] [address] Care Team Providers Care Wireless Sales Associate Name Role Phone Leah Jasso APRN Primary Care Provider [phone] Family History Medical History Relation Name Comments [...] 19+ 3-dose series) 2020 UKY-Pap Smear 2022 [id number] Vaccine (1 - 20 24-25 season) 2024 [...] to [place] [id number] WANG Care Teams Wireless Sales Associate Relationship Specialty Start Date End Date Leah Jasso APRN [address] [facility] [address] [place] [address] PCP - General 11/13/20
--- OUTSIDE RECORDS SUMMARY | 2025-01-17 17:29 | XMS_ITS | Encounter Summary ---
Author Organization [facility] Address [address] [place] [address] Care Team Providers Care Workforce Investment Act Career Manager Name Role Phone Destiny Seymour Primary Care Provider [phone] Encounter Details Date Type Department Care Team (Latest Contact Info) Description 12/12/2024 Travel 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 Tobacco Use Types Packs/Day Years [...] on file documented as of this encounter Plan of Treatment Not on file documented as of this encounter Visit Diagnoses Not on filedocumented in this encounter Care Teams Workforce Investment Act Career Manager Relationship Specialty Start Date End Date Destiny Seymour PA [address] [address] PCP - General Physician Water Treatment Plant Operator 09/14/22 documented as of this encounter
--- OUTSIDE RECORDS SUMMARY | 2025-01-17 17:29 | XMS_ITS | Clinical Summary ---
Author Organization [facility] Address [address] [place] [address] Care Team Providers Care Executive Receptionist Name Role Phone Destiny Seymour Primary Care Provider [phone] Allergies Active Allergy Reactions Criticality Noted Date Comments Erythromycin Hives,Rash High 09/14/2022 Medications bisoprolol (ZEBeta) 5 MG tablet Take 1 tablet by mouth Daily. 2.5mg daily Active albuterol sulfate HFA 108 (90 Base) MCG/ACT inhaler Inhale 2 puffs Every 6 (Six) Hours As Needed for Shortness of Air. 5 Active labetalol (NORMODYNE) 200 MG tablet Take 1 tablet by mouth Every 12 (Twelve) Hours. 5 Active MAGnesium-Oxide 400 (240 Mg) MG tablet Take 1 tablet by mouth Daily. 5 Active nystatin (MYCOSTATIN) 067432 UNIT/GM powder As Needed. 5 Active ondansetron ODT (ZOFRAN-ODT) [address] 1 tablet on the tongue Every 6 (Six) Hours As Needed. 5 Active vitamin (, CLASSIC, vitamin) tablet Take by mouth Daily. Active ferrous sulfate 324 (65 Fe) MG tablet delayed-release EC tablet Take 1 tablet by mouth Daily With Breakfast. Active NIFEdipine CC (ADALAT CC) 30 MG 24 hr tablet Take 1 tablet by mouth Daily. 5 Active Active Problems Problem Noted Date Diagnosed Date Chronic hypertension complic ating or reason for care during , second trimester 11/05/2024 Assessment & Plan (12/12/2024 2:17 PM EDT): Patient presents for follow-up growth ultrasound secondary [...] ultrasound shows normal growth with normal amniotic fluid. Follow-up here in 4 weeks. We discussed likely delivery at 37 weeks Assessment & Plan (11/05/2024 2:52 PM EDT): Pt has a diagnosis of chronic hypertension. Initial evaluation in these women should include renal function by 24 hr urine for protein and creatinine clearance. HTN is associated with Growth Restriction (FGR) in about 15-25% of cases. HTN progresses to superimposed preeclampsia in about 25-35% of cases, usually recognized by the appearance of proteinuria & worsening hypertension. These interventions do not decrease the risk of superimposed preeclampsia: prophylactic bedrest, work & activity restrictions, dietary changes, nutrient supplements, or prophylactic antihypertensive therapy. The only proven prevention strategy for preeclampsia is low dose aspirin during . In fact, the USPTF recommends low dose aspirin initiation after 12 wks gestation for preeclampsia prevention in these women. We have instructed patient to check a blood pressure log and to report BPs 160/110s. With recent publishing of the CHAP trial, the goal for mild chronic hypertension is blood pressures <140/80. This trial showed decreased maternal morbidity with no change in morbidity. Patient only on labetalol 200 mg twice daily. Blood pressure today 133/68. Will not make medication change at this time given blood pressure control. Patient was previously on metoprolol but was switched to labetalol at 22 weeks given elevation in blood pressure. Blood pressures appear to be under better control with labetalol. Recommendations: - Consider low dose aspirin -Baseline labs: 24 hour urine: not performed though would not recommend given advanced gestation, serum labs wnl -Monthly growth ultrasounds - testing at 32 wks unless indication develops prior (usually with twice weekly NST's) - Delivery based on BP control/complications but ideally at term - Commend continued evaluation of blood pressures and preeclampsia symptoms. Patient reports recent 24-hour urine completed though no results are available for review. Paroxysmal SVT (supraventricular tachycardia) Assessment & Plan (11/05/2024 2:19 PM EDT): Currently on beta-brandie 200 mg twice daily. Patient also had a cardiac ablation in 2022. Currently follows with cardiology. Estimated Date of Delivery Comme nts Yes 02/16/2025 Based on Patient Reported Encounters Date Type Department Care Team Description 12/12/2024 1:45 PM EDT Office Visit [facility]NAL [facility] [address] [facility] [address] [place] [phone] John Mendoza MD Chronic hypertension complicating or reason for care during , second trimester (Primary Dx) 12/12/2024 1:26 PM EDT - 12/12/2024 11:59 PM EDT Hospital Encounter [facility] US PER DIAG CTR [address] [place] [phone] John Mendoza MD Paroxysmal SVT (supraventricular tachycardia); Chronic hypertension complicating or reason for care during , second trimester Discharge Disposition: Home or Self Care 12/12/2024 Travel 11/05/2024 1:30 PM EDT - 11/05/2024 11:59 PM EDT Hospital Encounter [facility] US PER [facility] [address] [place] [address] Pepito Smiley DO HTN in , chronic; Hx of preeclampsia, prior , currently ; SVT (supraventricular tachycardia); , unspecified gestational age Discharge Disposition: Home or Self Care 11/05/2024 1:30 PM EDT Office Visit [facility] [address] [facility] [address] [place] [phone] John Mendoza MD Paroxysmal SVT (supraventricular tachycardia) (Primary Dx); Chronic hypertension complicating or reason for care during , second trimester 11/05/2024 Travel from Last 3 Months Family History Medical History Relation Name Comments Asthma Brother Henry Kaminski No Known Problems Father No Known Problems Mother Relation Name Status Comments Brother Henry Kaminski Father Alive Mother Alive 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 Tobacco Use Types Packs/Day Years Used Date Smoking Tobacco: Never Passive Smoke Exposure: Past Smokeless Tobacco: Never Tobacco Cessation:Counseling Given: Not Answered Alcohol Use Standard Drinks/Week Comments Not Currently [...] Pressure 144/82 12/12/2024 2:12 PM EDT Pulse 88 01/20/2023 2:23 PM EDT Temperature 36.7 C (98 F) 11/25/2022 12:04 PM EDT Respiratory Rate 19 11/25/2022 3:56 PM EDT Oxygen Saturation 97% 01/20/2023 2:23 PM EDT Inhaled Oxygen Concentration - - Weight 93.2 kg (205 lb 6.4 oz) 12/12/2024 1:40 P M EDT Height 167.6 cm (5' 6 ) 01/20/2023 2:23 PM EDT Body Mass Index 33.15 01/20/2023 2:23 PM EDT Plan of Treatment Health Maintenance Due Date Last Done Comments Annual Gynecologic Pelvic an d Breast Exam 2001 HPV VACCINES (1 - 3-dose series) 2016 MENINGOCOCCAL B VACCINE (1 o f 2 - Standard) 2017 PAP SMEAR 2022 ANNUAL PHYSICAL 07/12/2022 CHLAMYDIA SCREENING 07/12/2022 HEPATITIS C SCREENING 07/12/2022 COVID-19 Vaccine (1 - 2023-2 5 season) 2024 INFLUENZA VACCINE 04/02/2025 07/09/2024 TDAP/TD VACCINES (2 - Td or Tdap) 07/09/2034 025 Pneumococcal Vaccine 0-49 Aged Out No longer eligible based on patient's age to complete this topic RSV Vaccine - Adults (No Dos es Required) Completed Procedures Procedure Name Priority Date/Time Associated Diagnosis Comments [facility] Routine 12/12/2024 2:10 PM EDT Paroxysmal SVT (supraventricular tachycardia) Chronic hypertension complicating or reason for care during , second trimester [facility] Routine 11/05/2024 2:49 PM EDT HTN in , chronic Hx of preeclampsia, prior , currently SVT (supraventricular tachycardia) , unspecified gestational age from Last 3 Months Results * [facility] (12/12/2024 2:10 PM EDT) Only the most recent of2 resultswithin the time period is included. Anatomical Region Laterality Modality Ultrasound 12/12/2024 2:01 PM EDT Narrative 12/12/2024 2:18 PM EDT PAT NAME: FILI PHILLIP MED REC#: [id number] DA: 2000 PAT GEND: F PAT TYPE: O EXAM XIAO: [id number] REF PHYS PEPITO SMILEY Comparison Studies The findings of this study [...] EFW (oz) 11 oz EFW by: Hadlock (UES-[id number]-FL) Extended Cav. septi pel. tr 4.8 mm Appraisal Manager 6.1 mm Nasal bone 10.4 mm [...] Normal Heart / Thorax 3-vessel view: Normal 4-ilyehk-ssrfrlw view: normal Stomach: Appears normal Kidneys: Appears [...] normal. Recommendation 4 weeks. Coding ======= Description: 80487-02 Follow Up Ultrasound Description: 16470-27 BPP without NST Machine Molder Squeeze: Delmy Xiong RDMS Physician: John Mendoza MD, FACOG Electronically signed by: John Mendoza MD, FACOG at: 14:18 Procedure Note John Mendoza MD - 12/12/2024 PAT NAME: FILI PHILLIP MED REC#: [id number] DA: 2000 PAT GEND: F PAT TYPE: O EXAM XIAO: [id number] REF PHYS PEPITO SMILEY Comparison Studies The findings of this study are compared to the prior ultrasound studydated 11/05/24 Patient Status Outpatient Indication ======== CHTN. Rheumatoid arthritis. Maternal chiari malformation. Hx SVT withablation 2022. Vapes. Obesity BMI 33. Maternal Assessment Pqnwkq766 cm Dalipl98 kg Weight (lb)205 lb BMI33.34 kg/m Method ======= Transabdominal ultrasound examination. View: Adequate view ========= Beltran . Number of fetuses: 1 Dating ====== Method of dating:based on stated TIFFANY GA by prior neqakblvss55 w + 4 d TIFFANY by prior assessment:02/16/2025 Ultrasound examination on:12/12/2024 GA by U/S based upon:AC, BPD, Femur, HC GA by U/S32 w + 0 d TIFFANY by U/S:02/06/2025 Previous dating:based on stated TIFFANY, selected on 11/05/2024 Agreed TIFFANY of previous datin02/16/2025 Assigned:based on stated TIFFANY, selected on 12/12/2024 Assigned GA30 w + 4 d Assigned TIFFANY:02/16/2025 bikrxs024 d Biometry Standard BPD81.3 mm 32w 5d 92% Hadlock DMQ997.8 mm 33w 6d 98% Ermelinda HC300.1 mm 33w 2d 86% Hadlock AC256.3 mm 29w 6d 24% Hadlock Femur61.3 mm 31w 6d 71% Hadlock Colfemz60.5 mm 30w 4d 55% Ermelinda HC / AC1.17 EFW1,681 g 30w 4d 52% Hadlock EFW (lb)3 lb EFW (oz)11 oz EFW by:Hadlock (NBM-SE-KR-FL) Extended Cav. septi pel. tr4.8 mm Vp6.1 mm Nasal bone10.4 mm Head / Face / Neck Cephalic index0.78 39% Nicolaides Extremities / Bony Struc FL / BPD0.75 FL / HC0.20 FL / AC0.24 Other Structures CBN830 bpm General Evaluation Cardiac activity present. FHR [...] LVOT view:Normal Heart / Thorax 3-vessel view:Normal 8-btdmdn-rawkdyn view:normal Stomach:Appears normal Kidneys:Appears normal Bladder:Appears normal [...] normal. Recommendation 4 weeks. Coding ======= Description: Follow Up Ultrasound Description: BPP without NST Machine Molder Squeeze: Delmy Xiong RDRI Physician: John Mendoza MD, FACOG Electronically signed by: John Mendoza MD, FACOG at: 14:18 us John Mendoza MD IMG US ORDERABLES Final Result from Last 3 Months Insurance [place] [id number] [facility] PPO Care Teams Executive Receptionist Relationship Specialty Start Date End Date Destiny Seymour PA [address] [place] [address] PCP - General Physician General Ii Farmworker 09/14/22
--- OUTSIDE RECORDS SUMMARY | 2025-01-17 17:29 | XMS_ITS | Clinical Summary ---
Author Organization [facility] Address [address] [facility] [address] [place] [address] Phone Care Team Providers Care Clinical Science Consultant Name Role Phone Unavailable Primary Care Provider Unavailabl e Allergies No known active allergies Active Problems Problem Noted Date Diagnosed Date S/P RF ablation operation for arrhythmia 023 Overview (03/02/2023): EPS, SVT Ablation 11/25/22-Dr. Demetrio Pearson @ [facility] SVT (supraventricular tachycardia) Surgical History Surgery Date Site/Laterality Comments CYST REMOVAL 08/31/2020 - 09/30/2020 Right R Hand Cyst Removal ABLATION OF DYSRHYTHMIC FOCUS 11/25/2022 EPS, SVT Ablation-Dr. Demetrio Pearson @ [facility] Medical History Medical History Date Comments [...]
--- OUTSIDE RECORDS SUMMARY | 2025-01-17 17:30 | XMS_ITS | Patient Health Record ---
Author Organization [facility] Address [address] [place] [id number] Care Team Providers Care Brushing Operator Name Role Phone Destiny Seymour Unavailable [phone] Allergies Allergen (clinical drug ingredient) Drug/Non Drug [...] Last Name Dawn Referring Provider Speciality Physician Expansion Joint Finisher Referred Provider Rheumatology, . Referred Provider Specialty Rheumatology General Notes Destiny Seymour 2023 11:16:04 AM > PT needs an appt with Pepper Bonilla Brynn 02/12/2024 11:44:56 AM > sent referral to Dr. Jacobs via [facility] website Referral Priority Routine Diagnosis 1 Rheumatoid arthritis with positive rheumatoid factor, involving unspecified site (M05.9) Referral Organization [facility] Referring Provider First Name Destiny Referring Provider Last Name Dawn Referring Provider Speciality Physician Expansion Joint Finisher Referred Provider Rheumatology, . Referred Provider Specialty Rheumatology General Notes Destniy Seymour 04/03 12:23:11 PM > Pt needs [...] W/U Status Risk Notes Problem Supraventricular tachycardia (6588087) SVT (supraventricular tachycardia) (I47.1) Active confirmed Problem Paresthesia (53062867) Paresthesia (R20.2) Active confirmed Problem Mixed anxiety and depressive disorder (896218783) Depression with anxiety (F41.8) Active confirmed Problem Thyroid nodule (335381805) Thyroid nodule (E04.1) Active confirmed Problem Panic disorder (463723416) Panic attacks (F41.0) Active confirmed Problem Refractory migraine with aura (086702474) Intractable migraine with aura without status migrainosus (G43.119) Active confirmed Problem Cardiac arrhythmia (802511471) Cardiac arrhythmia, unspecified cardiac arrhythmia type (I49.9) Active confirmed Problem Refractory migraine (830643299) Intractable migraine without status migrainosus, unspecified migraine type (G43.919) Active confirmed Problem Thyromegaly (5127659) Thyromegaly (E01.0) Active confirmed Problem Migraine (09267334) Migraine syn drome (G43.909) Active confirmed Problem Gastroesophageal reflux disease (904708411) Gastroesophageal reflux disease, unspecified whether esophagitis present (K21.9) Active confirmed Problem Rheumatoid arthritis (59977232) Rheumatoid arthritis, involving unspecified site, unspecified whether rheumatoid factor present (M06.9) Active confirmed Problem Rheumatoid arthritis (70819556) Rheumatoid arthritis with positive rheumatoid factor, involving unspecified site (M05.9) Active confirmed Problem Tobacco user (722821897) Vaping nicotine dependence, non-tobacco product (F17.200) Active confirmed Problem Drug-induced insomnia (63081967150196) 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) Active confirmed Problem Compression of brain (08071292) 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) Active confirmed Vital Signs Heart Rate 85 /min 04/24/2024 Blood pressure diastolic 100 mm Hg 04/24/2024 Height 66 in 04/24/2024 Blood pressure systolic 134 mm Hg 04/24/2024 Weight 187.0 lbs 04/24/2024 BMI 30.18 kg/m2 04/24/2024 Encounters Encounter [facility] Date [facility] [address] [place] [id number] 02/08/2024 Destiny Seymour Gastroesophageal ref lux disease, unspecified whether esophagitis present K21.9 and Rheumatoid arthritis, involving unspecified site, unspecified whether rheumatoid factor present M06.9 [facility] [address] [place] [id number] 04/24/2024 Destiny Seymour Strep pharyngitis J0 2.0 and Rheumatoid arthritis with positive rheumatoid factor, involving unspecified site M05.9 [facility] [address] [place] [id number] 08/01/2024 Destiny Seymour Assessments Encounter Date Diagnosis [...] WANG BLUE CROSSBLUE SHIELD [address] [place] [address] [id number] 002 FILI PHILLIP Self - patient is [...]
[2025-01-17 18:01] LABS: Bilirubin,Urine Negative (Negative); Color,Urine YELLOW (Yellow); Glucose,Urine (UA) Negative (Negative); Ketones,Urine Negative (Negative); Leukocyte Esterase,Urine 2+ (Negative); Microscopic, Urine URINE MICROSCOPIC (MICROSCOPIC); PH,Urine 6.5 (5.0-8.5); Protein,Urine Negative (Negative); Specific Gravity, Urine <= 1.005 (1.005-1.030); Urobilinogen,Urine 0.2 EU/dl (0.2)
[2025-01-17 18:36] LABS: Bacteria,Urine 4+ /lpf; Squamous Epithelial Cell,Urine 50-100 #/hpf (0-5); WBC,Urine TNTC #/hpf (0-3)
[2025-01-17] MEDS: LABETALOL 5MG/ML 20ML MDV 20 MG IV (18:51)
[2025-01-17 19:02] LABS: Hematocrit 33.0 % (37.0-47.0); Hemoglobin 11.7 g/dL (12.2-16.2); Immature Granulocytes % 0.5 %; Mean Corpuscular HGB Conc 35.5 g/dL (31.8-35.4); Mean Corpuscular Hemoglobin 31.2 pg (27.0-31.2); Mean Corpuscular Volume 88.0 fl (81-99); Nucleated Red Blood Cells % 0 %; Platelet Count 262 K/mm3 (142-424); Red Blood Count 3.75 M/mm3 (4.20-5.40); Red Cell Distribution Width-SD 40.6 fL; White Blood Count 9.4 K/mm3 (4.8-10.8)
[2025-01-17 19:21] LABS: Alanine Aminotransferase 13 U/L (12-78); Anion Gap 10.2 mEq/L (5-15); Aspartate Amino Transferase 18 U/L (14-36); Blood Urea Nitrogen 4 mg/dl (7-17); Calcium 9.5 mg/dl (8.4-10.2); Carbon Dioxide 22 mmol/L (22.0-30.0); Chloride 107 mmol/L (98-107); Creatinine Clearance Estimated 264 mL/min (50-200); Creatinine,Serum 0.50 mg/dl (0.52-1.04); Estimated Glomerular Filt Rate 153 ml/min (>60); GFR (African American) 185 ML/MIN (>60); Glucose 76 mg/dl (74-100); Potassium 4.2 mmoL/L (3.5-5.1); Sodium 135 mmol/L (136-145); Uric Acid 4.6 mg/dl (2.5-6.2)
[2025-01-17 19:24] LABS: Activated Partial Thrombo Time 26.4 seconds (22.8-30.6); Fibrinogen 393 mg/dL (229.9-363.5); INR 0.94 (0.9-1.1); Prothrombin Time 10.5 seconds (10.1-12.5)
[2025-01-17] MEDS: LACTATED RINGERS 1000ML 1,000 ML 75 ML IV (19:49)
[2025-01-17] MEDS: MAGNESIUM SULFATE IN WATER 4 GM/50 ML PIGGYBACK IV (19:53)
[2025-01-17] MEDS: LABETALOL 5MG/ML 20ML MDV 40 MG IV (19:55)
--- NOTE | 2025-01-17 19:59 | PC.NURSE ---
Diabetes panel 01/17/25 Range/Units 18:55 Sodium 135 L (136-145) mmol/L Potassium 4.2 (3.5-5.1) mmoL/L Chloride 107 (98-107) mmol/L Carbon Dioxide 22 (22.0-30.0) mmol/L BUN 4 L (7-17) mg/dl Creatinine 0.50 L (0.52-1.04) mg/dl Glucose 76 (74-100) mg/dl Calcium 9.5 (8.4-10.2) mg/dl AST 18 (14-36) U/L ALT 13 (12-78) U/L Calcium panel 01/17/25 Range/Units 18:55 Calcium 9.5 (8.4-10.2) mg/dl Pituitary panel 01/17/25 Range/Units 18:55 Sodium 135 L (136-145) mmol/L Potassium 4.2 (3.5-5.1) mmoL/L Chloride 107 (98-107) mmol/L Carbon Dioxide 22 (22.0-30.0) mmol/L BUN 4 L (7-17) mg/dl Creatinine 0.50 L (0.52-1.04) mg/dl Glucose 76 (74-100) mg/dl Calcium 9.5 (8.4-10.2) mg/dl Adrenal panel 01/17/25 Range/Units 18:55 Sodium 135 L (136-145) mmol/L Potassium 4.2 (3.5-5.1) mmoL/L Chloride 107 (98-107) mmol/L Carbon Dioxide 22 (22.0-30.0) mmol/L BUN 4 L (7-17) mg/dl Creatinine 0.50 L (0.52-1.04) mg/dl Glucose 76 (74-100) mg/dl Calcium 9.5 (8.4-10.2) mg/dl AST 18 (14-36) U/L ALT 13 (12-78) U/L
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
[2025-01-17] MEDS: MAGNESIUM SULFATE IN WATER 2 GM/50 ML PIGGYBACK IV (20:16)
--- NOTE | 2025-01-17 20:47 | PC.NURSE ---
Vital Signs - 24 hr 01/17/25 17:29 01/17/25 18:45 01/17/25 18:51 Temperature Pulse Rate [Left Brachial] 86 Respiratory Rate 18 Blood Pressure 162/99 H Blood Pressure [Left Arm] 141/90 H 163/91 H 02 Sat by Pulse Oximetry 100 Oxygen Delivery Method Room Air 01/17/25 19:00 01/17/25 19:15 01/17/25 19:30 Temperature 98.2 F Pulse Rate [Left Brachial] 64 Respiratory Rate 18 Blood Pressure Blood Pressure [Left Arm] 153/92 H 150/85 H 148/91 H 02 Sat by Pulse Oximetry 98 Oxygen Delivery Method Room Air 01/17/25 19:45 01/17/25 19:55 01/17/25 20:00 Temperature Pulse Rate [Left Brachial] 71 Respiratory Rate Blood Pressure 176/105 H Blood Pressure [Left Arm] 144/95 H 176/105 H 02 Sat by Pulse Oximetry Oxygen Delivery Method 01/17/25 20:15 01/17/25 20:30 01/17/25 20:40 Temperature 98.3 F Pulse Rate [Left Brachial] 79 68 Respiratory Rate 16 Blood Pressure Blood Pressure [Left Arm] 164/101 H 148/94 H 152/91 H 02 Sat by Pulse Oximetry 97 Oxygen Delivery Method Room Air 01/17/25 20:45 Temperature Pulse Rate [Left Brachial] Respiratory Rate Blood Pressure Blood Pressure [Left Arm] 154/105 H 02 Sat by Pulse Oximetry Oxygen Delivery Method
== END 2025-01-17 22:32 | disposition short-term general hospital (02) ==
LOC: OBOUT 20:03 → OB 20:03
PROVIDERS: Admitting Provider Nurse Practitioner Obstetrics & Gynecology; PCP Physician Assistant; Visit Provider Nurse Practitioner Obstetrics & Gynecology
DX: O11.3 Pre-existing hypertension with pre-eclampsia, third trimester (principal); Z3A.35 35 weeks gestation of pregnancy; Z98.890 Other specified postprocedural states; Z79.899 Other long term (current) drug therapy
CPT/HCPCS: 59025; 80048; 81001; 84450; 84460; 84550; 85025; 85384; 85610; 85730; 87086; 96360; 96361; 96365; 96366; 96375; 96376; G0378; G0463; J1920; J3475; J7120

== ENCOUNTER 2025-01-21 19:33 | Inpatient (IN) | payer BC, SELFPAY ==
--- OUTSIDE RECORDS SUMMARY | 2024-02-08 06:45 | XMS_ITS ---
Author Organization [facility] Address [address] [place] [id number] Care Team Providers Care Diagnostic Tech Name Role Phone Destiny Seymour Unavailable [phone] Allergies Allergen (clinical drug ingredient) Drug/Non Drug Allergy documented on EMR Reaction Allergy Type Onset Date Status erythromycin Erythromycin Unknown Drug Allergy A ctive Reason For Referral Diagnosis 1 Rheumatoid arthritis , involving unspecified site, unspecified whether rheumatoid factor present (M06.9) Referral Organization [facility] Referring Provider First Name Destiny Referring Provider Last Name Dawn Referring Provider Speciality Physician Gate Attendant Referred Provider Rheumatology, . Referred Provider Specialty Rheumatology General Notes Destiny Seymour 2023 11:16:04 AM > PT needs an appt with Pepper Bonilla Brynn 02/12/2024 11:44:56 AM > sent referral to Dr. Jacobs via [facility] website Referral Priority Routine REASON FOR VISIT [...] needed Orally Once a day, prn Active Uutdwkffge-EYMH-Hdpbhexm 50-325-40 MG 1 tablet as needed Orally [...] Status Risk Notes Problem Gastroesophageal reflux disease (857841223) Gastroesophageal reflux disease, unspecified whether esophagitis present [...] Provider Diagnosis [facility] [address] [facility] [address] [place], [place] [id number] 02/08/2024 Destiny Seymour Gastroesophageal ref lux disease, [...] Notes * TANK PHILLIPOB:2000 (24 yo F)Acc No.[id number]:02/08/2024 Progress Notes Patient: FILI MONAHAN Provider: ETHEL Valentin :2000 A ge:23 Y S ex:Female Date:02/08/2024 Phone: Address:[address] [place] [address] , [place], [id number] Subjective: * Chief Complaints: * 1 . follow up ER, gerd. * HPI: G astroenterology: The pt is here for a follow up on an [facility] ER visit due to shortness of [...] the morning Orally once daily , Not-Taking Doptwputrk-BLXU-Sraldjbl 50-325-40 MG Tablet 1 tablet as needed [...] * Images: Billing Information: * Visit Code: 65571 Office Visit, Est Pt., Level 4. * Procedure Codes: * Electronic signature of ETHEL Edwards on 01/21/2025 at 12:51 PM EDT Sign off status: Pending * Provider: ETHEL Valentin Date: 0 02/08/2024 Generated for Printi ng/Faxing/eTransmitting on: 01/21/2025 12:51 PM EDT History and Physical Notes * [...]
--- OUTSIDE RECORDS SUMMARY | 2024-02-08 06:45 | XMS_ITS ---
Author Organization [facility] Address [address] [place] [phone] Care Team Providers Care Negative Turner Apprentice Name Role Phone Destiny Seymour Unavailable [phone] Allergies Allergen (clinical drug ingredient) Drug/Non Drug Allergy documented on EMR Reaction Allergy Type Onset Date Status erythromycin Erythromycin Unknown Drug Allergy A ctive Reason For Referral Diagnosis 1 Rheumatoid arthritis , involving unspecified site, unspecified whether rheumatoid factor present (M06.9) Referral Organization [facility] Referring Provider First Name Destiny Referring Provider Last Name Dawn Referring Provider Speciality Physician Senior Materials Planner Referred Provider Rheumatology, . Referred Provider Specialty Rheumatology General Notes Destiny Seymour 2023 11:16:04 AM > PT needs an appt with Pepper Bonilla Brynn 02/12/2024 11:44:56 AM > sent referral to Dr. Jacobs via [facility] website Referral Priority Routine REASON FOR VISIT [...] needed Orally Once a day, prn Active Gwntzyhzme-TLHS-Ipbnynlf 50-325-40 MG 1 tablet as needed Orally [...] Status Risk Notes Problem Gastroesophageal reflux disease (474179679) Gastroesophageal reflux disease, unspecified whether esophagitis present (K21.9) Active confirmed Problem Rheumatoid arthritis (17799503) Rheumatoid arthritis, involving unspecified site, unspecified whether rheumatoid factor present (M06.9) Active confirmed Vital Signs Blood pressure systolic 140 mm Hg 02/08/20 24 Blood pressure diastolic 90 mm Hg 024 Heart Rate 69 /min 02/08/2024 Height 66 in 02/08/2024 Weight 191.2 lbs 02/08/2024 BMI 30.86 kg/m2 02/08/2024 Encounters Encounter Location Date Provider Diagnosis [facility] [address] [facility] [address] [place], [place] [phone] 02/08/2024 Destiny Dawn Gastroesophageal ref lux disease, [...] Notes * TANK PHILLIPOB:2000 (24 yo F)Acc No.[id number]:02/08/2024 Progress Notes Patient: FILI MONAHAN Provider: ETHEL Valentin :2000 A ge:23 Y S ex:Female Date:02/08/2024 Phone: Address:[address] [place] [address] , [place], [id number] Subjective: * Chief Complaints: * 1 . follow up ER, gerd. * HPI: G astroenterology: The pt is here for a follow up on an [facility] ER visit due to shortness [...] the morning Orally once daily , Not-Taking Fmbgioimse-EDWR-Qcbsqovf 50-325-40 MG Tablet 1 tablet as needed [...] * Images: Billing Information: * Visit Code: 08262 Office Visit, Est Pt., Level 4. * Procedure Codes: * Electronic signature of ETHEL Edwards on 01/23/2025 at 04:29 PM EDT Sign off status: Pending * Provider: ETHEL Valentin Date: 02/08/2024 Generated for Printi ng/Fajaseg/eTransmitting on: 01/23/2025 04:29 PM EDT History and Physical Notes * [...]
--- OUTSIDE RECORDS SUMMARY | 2024-04-24 07:30 | XMS_ITS ---
Author Organization Bradley Address [address] [facility] [address] [id number] Care Team Providers Care Planning Intern Name Role Phone Destiny Seymour Unavailable [phone] Allergies Allergen (clinical drug ingredient) Drug/Non Drug [...] Last Name Dawn Referring Provider Speciality Physician Filler Shredder Helper Referred Provider Rheumatology, . Referred Provider Specialty [...] 04/24/2024 Encounters Encounter Location Date Provider Diagnosis [facility] [address] [place], [place] [id number] 04/24/2024 Destiny Seymour Strep pharyngitis J0 2.0 [...] Notes * TANK ROSENOB:2000 (24 yo F)Acc No.[id number]:04/24/2024 Progress Notes Patient: FILI MONAHAN Provider: ETHEL Valentin :2000 A ge:23 Y S ex:Female Date:04/24/2024 Phone: Address:[address] [place] [address] Brad Ayon enmanuel, [phone] Subjective: * Chief Complaints: * 1 . [...] the morning Orally once daily , Discontinued Jqimupchnp-EJWR-Bfotvcaa 50-325-40 MG Tablet 1 tablet as needed [...] * Images: Billing Information: * Visit Code: 34634 Office Visit, Est Pt., Level 3. * Procedure Codes: 50751 STREP A ASSAY W/OPTIC. Modifiers: QW * Electronic signature of ETHEL Edwards on 01/23/2025 at 04:29 PM EDT Sign off status: Pending * Provider: ETHEL Valentin Date: 1 Generated for Melisa gonzalez/Anel/Misbahitting on: 0 01/23/2025 04:29 PM EDT History and Physical [...]
--- OUTSIDE RECORDS SUMMARY | 2024-04-24 07:30 | XMS_ITS ---
Author Organization Bradley Address [address] [facility] [address] [phone] Care Team Providers Care Supervisor Print Line Name Role Phone Destiny Seymour Unavailable [phone] Allergies Allergen (clinical drug ingredient) Drug/Non Drug [...] Last Name Dawn Referring Provider Speciality Physician Stable Helper Referred Provider Rheumatology, . Referred Provider [...] 04/24/2024 Encounters Encounter Location Date Provider Diagnosis [facility] [address] [place], [place] [id number] 04/24/2024 Destiny Seymour Strep pharyngitis J0 2.0 [...] Notes * TANK ROSENOB:2000 (24 yo F)Acc No.[id number]:04/24/2024 Progress Notes Patient: FILI MONAHAN Provider: ETHEL Valentin :2000 A ge:23 Y S ex:Female Date:04/24/2024 Phone: Address:[address] [place] [address] Brad Ayon enmanuel, [id number] Subjective: * Chief Complaints: * 1 . [...] the morning Orally once daily , Discontinued Hrvpnvhwrc-HQFI-Hbjockfk 50-325-40 MG Tablet 1 tablet as needed [...] * Images: Billing Information: * Visit Code: 95357 Office Visit, Est Pt., Level 3. * Procedure Codes: 02027 STREP A ASSAY W/OPTIC. Modifiers: QW * Electronic signature of ETHEL Edwards on 01/21/2025 at 12:51 PM EDT Sign off status: Pending * Provider: ETHEL Valentin Date: 1 Generated for Melisa gonzalez/Anel/Misbahitting on: 0 01/21/2025 12:51 PM EDT History and Physical [...]
--- OUTSIDE RECORDS SUMMARY | 2024-06-14 09:15 | XMS_ITS ---
Author Organization Bradley Address 1210 [facility] [address] [place] [phone] Care Team Providers Care Correctional Casework Specialist Name Role Phone Dawn Destiny Unavailable [phone] Allergies Allergen (clinical drug ingredient) Drug/Non Drug [...] Encounter Location Date Provider Diagnosis [facility] [address] [place] [phone] 06/14/2024 Destiny Seymour Plan Of Treatment No Information Progress Notes * TANK PHILLIPOB:2000 (24 yo F)Acc No.[id number]:06/14/2024 Progress Notes Patient: FILI MONAHAN Provider: ETHEL Valentin :2000 A ge:24 Y S ex:Female Date:06/14/2024 Phone: Address:[address] [place] [address] [id number] Subjective: * Chief Complaints: * 1 . [...] signature of ETHEL Edwards on 01/21/2025 at 12:52 PM EDT Sign off status: Pending * Provider: ETHEL Valentin Date: 1 08/15/2023 Generated for Melisa gonzalez/Anel/Misbahitting on: 0 01/21/2025 12:52 PM EDT History and Physical Notes * HPI (History of Present Illness) Category Sub-Category Detail Notes Category Not es HPI Patient is here today for Pt is here toda y for a check up
--- OUTSIDE RECORDS SUMMARY | 2024-06-14 09:15 | XMS_ITS ---
Author Organization [place] Address 1210 [facility] [address] [place] [phone] Care Team Providers Care Assessment Specialist Name Role Phone Dawn Destiny Unavailable [phone] Allergies Allergen (clinical drug ingredient) Drug/Non Drug [...] Encounter Location Date Provider Diagnosis Nikolas [facility]10 [facility] [address] [place] [phone] 06/14/2024 Destiny Seymour Plan Of Treatment No Information Progress Notes * TANK PHILLIPOB:2000 (24 yo F)Acc No.[id number]:06/14/2024 Progress Notes Patient: FILI MONAHAN Provider: ETHEL Valentin :2000 A ge:24 Y S ex:Female Date:06/14/2024 Phone: Address:[address] [place] [address] Dr SE[place] Espinal-[id number] Subjective: * Chief Complaints: * 1 . [...] signature of ETHEL Edwards on 01/23/2025 at 04:30 PM EDT Sign off status: Pending * Provider: ETHEL Valentin Date: 1 08/15/2023 Generated for Melisa gonzalez/Anel/Misbahitting on: 0 01/23/2025 04:30 PM EDT History and Physical Notes * HPI (History of Present Illness) Category Sub-Category Detail Notes Category Not es HPI Patient is here today for Pt is here toda y for a check up
--- OUTSIDE RECORDS SUMMARY | 2024-12-12 13:26 | XMS_ITS | Encounter Summary ---
Author Organization [facility] Address [address] [id number] Care Team Providers Care Level Vial Curvature Gauger Name Role Phone Destiny Seymour Primary Care Provider [phone] Reason for Referral * Diagnostic Imaging (Routine) - Closed Specialty Diagnoses / Procedures Referred By Contac t Referred To Contact Radiology Diagnoses Paroxysmal SVT (supraventricular tachycardia) Chronic hypertension complicating or reason for care during , second trimester Procedures [facility] [place] [address] [place] [address] [place] [address] Phone: tel: fax: Referral ID Status Reason Start Date Expiration Date Visits Re quested Visits Authorized [id number] Closed 11/05/2024 02/04/2026 1 1 Reason for Visit * Diagnostic Imaging (Routine) - Closed Specialty Diagnoses / Procedures Referred By Contac t Referred To Contact Radiology Diagnoses Paroxysmal SVT (supraventricular tachycardia) Chronic hypertension complicating or reason for care during , second trimester Procedures [facility] [place] John Mendoza MD [address] [facility] [address] [place] [address] Phone: tel: fax: Referral ID Status Reason Start Date Expiration Date Visits Re quested Visits Authorized [id number] Closed 11/05/2024 02/04/2026 1 1 Encounter Details Date Type Department Care Team (Late st Contact Info) Description 12/12/2024 1:26 PM EDT - 12/12/2024 11:59 PM EDT Hospital Encounter [facility] [address] [place] [address] John Mendoza MD [address] [place] [address] Paroxysmal SVT (supraventricular tachycardia); Chronic hypertension complicating [...] tablet by mouth Daily. 11/29/2024 nystatin (MYCOSTATIN) 135558 UNIT/GM powder As Needed. 08/23/2024 documented as of this encounter Plan of Treatment Not on file documented as of this encounter Procedures Procedure Name Priority Date/Time Associated Diagnosis Comments [facility] Routine 12/12/2024 2:10 PM EDT Paroxysmal SVT (supraventricular tachycardia) Chronic hypertension complicating or reason for care during , second trimester documented in this encounter Results * [facility] (12/12/2024 2:10 PM EDT) Anatomical Region Laterality Modality Ultrasound 12/12/2024 2:01 PM EDT Narrative 12/12/2024 2:18 PM EDT PAT NAME: FILI PHILLIP MED REC#: [id number] DA: 2000 PAT GEND: F PAT TYPE: O EXAM XIAO: [id number] REF PHYS PEPITO BUITRAGO Comparison Studies The [...] Transabdominal ultrasound examination. View: Adequate view ========= [place] . Number of fetuses: 1 Dating ====== [...] EFW (oz) 11 oz EFW by: Hadlock (PXY-YA-IQ-FL) Extended Cav. septi pel. tr 4.8 mm Inspector Semiconductor Wafer 6.1 mm Nasal bone 10.4 mm Head [...] Normal Heart / Thorax 3-vessel view: Normal 5-hhrmly-ddfocvi view: normal Stomach: Appears normal Kidneys: Appears [...] normal. Recommendation 4 weeks. Coding ======= Description: 26161-70 Follow Up Ultrasound Description: 90211-71 BPP without NST Supervisor Assembly And Packing: Delmy Xinog RDMS Physician: John Mendoza MD, FACOG Electronically signed by: John Mendoza MD, FACOG at: 14:18 Procedure Note John Mendoza MD - 12/12/2024 PAT NAME: FILI PHILLIP [facility] REC#: [id number] DA: 2000 PAT GEND: F PAT TYPE: O EXAM XIAO: [id number] REF PHYS PEPITO BUITRAGO Comparison Studies The findings of this study are compared to the prior ultrasound studydated 11/05/24 Patient Status Outpatient Indication ======== CHTN. Rheumatoid arthritis. Maternal chiari malformation. Hx SVT withablation 2022. Vapes. Obesity BMI 33. Maternal Assessment Rdytcw793 cm Iksuqk91 kg Weight (lb)205 lb BMI33.34 kg/m Method ======= Transabdominal ultrasound examination. View: Adequate view ========= Beltran . Number of fetuses: 1 Dating ====== Method of dating:based on stated TIFFANY GA by prior [id number] w + 4 d TIFFANY by prior [...] Standard BPD81.3 mm 32w 5d 92% Hadlock UPC781.8 mm 33w 6d 98% Ermelinda HC300.1 mm 33w 2d 86% Hadlock AC256.3 mm 29w 6d 24% Hadlock Femur61.3 mm 31w 6d 71% Hadlock Riazljx59.5 mm 30w 4d 55% Ermelinda HC / AC1.17 EFW1,681 g 30w 4d 52% Hadlock EFW (lb)3 lb EFW (oz)11 oz EFW by:Hadlock (ZTF-SQ-QH-FL) Extended Cav. septi pel. tr4.8 mm Vp6.1 mm Nasal bone10.4 mm Head / Face / Neck Cephalic index0.78 39% Nicolaides Extremities / Bony Struc FL / BPD0.75 FL / HC0.20 FL / AC0.24 Other Structures NYH424 bpm General Evaluation Cardiac activity present. FHR [...] LVOT view:Normal Heart / Thorax 3-vessel view:Normal 3-glzhsj-rngoccw view:normal Stomach:Appears normal Kidneys:Appears normal Bladder:Appears normal [...] are normal. Recommendation 4 weeks. Coding ======= Description:07081-61 Follow Up Ultrasound Description: BPP without NST Supervisor Assembly And Packing: Delmy Xiong RDMS Physician: John Mendoza MD, FACOG Electronically signed by: John Mendoza MD, FACOG at: 14:18 us John Mendoza MD IMG US ORDERABLES Final Result documented in this encounter Visit Diagnoses Diagnosis Paroxysmal SVT (supraventricular tachycardia) Chronic hypertension complicating or reason for care during , second trimester documented in this encounter Care Teams Level Vial Curvature Gauger Relationship Specialty Start Date End Date Destiny Seymour PA [address] [place] [address] [facility] [address] [place] [address] PCP - General Physician Mammography Technologist 09/14/22 documented as of this encounter
--- OUTSIDE RECORDS SUMMARY | 2024-12-12 13:26 | XMS_ITS | Encounter Summary ---
Author Organization [facility] Address [address] [id number] Care Team Providers Care Home Visits Nurse Name Role Phone Destiny Seymour Primary Care Provider [phone] Reason for Referral * Diagnostic Imaging (Routine) - Closed Specialty Diagnoses / Procedures Referred By Contac t Referred To Contact Radiology Diagnoses Paroxysmal SVT (supraventricular tachycardia) Chronic hypertension complicating or reason for care during , second trimester Procedures [facility] [place] [address] [place] [address] [place] [address] Phone: tel: fax: Referral ID Status Reason Start Date Expiration Date Visits Re quested Visits Authorized [id number] Closed 11/05/2024 02/04/2026 1 1 Reason for Visit * Diagnostic Imaging (Routine) - Closed Specialty Diagnoses / Procedures Referred By Contac t Referred To Contact Radiology Diagnoses Paroxysmal SVT (supraventricular tachycardia) Chronic hypertension complicating or reason for care during , second trimester Procedures [facility] [place] John Mendoza MD [address] [facility] [address] [place] [address] Phone: tel: fax: Referral ID Status Reason Start Date Expiration Date Visits Re quested Visits Authorized [id number] Closed 11/05/2024 02/04/2026 1 1 Encounter Details Date Type Department Care Team (Late st Contact Info) Description 12/12/2024 1:26 PM EDT - 12/12/2024 11:59 PM EDT Hospital Encounter [facility] PER DI[facility] CTR [address] [place] [address] John Mendoza MD [address] [place] [address] Paroxysmal SVT (supraventricular tachycardia); Chronic hypertension complicating [...] tablet by mouth Daily. 11/29/2024 nystatin (MYCOSTATIN) 347905 UNIT/GM powder As Needed. 08/23/2024 documented as of this encounter Plan of Treatment Not on file documented as of this encounter Procedures Procedure Name Priority Date/Time Associated Diagnosis Comments [facility] Routine 12/12/2024 2:10 PM EDT Paroxysmal SVT (supraventricular tachycardia) Chronic hypertension complicating or reason for care during , second trimester documented in this encounter Results * [facility] (12/12/2024 2:10 PM EDT) Anatomical Region Laterality Modality Ultrasound 12/12/2024 2:01 PM EDT Narrative 12/12/2024 2:18 PM EDT PAT NAME: FILI PHILLIP MED REC#: [id number] DA: 2000 PAT GEND: F PAT TYPE: O EXAM XIAO: [id number] REF PHYS PEPITO BUITRAGO Comparison Studies The [...] EFW (oz) 11 oz EFW by: Hadlock (FAC-OI-JE-FL) Extended Cav. septi pel. tr 4.8 mm Mis Director 6.1 mm Nasal bone 10.4 mm Head [...] Normal Heart / Thorax 3-vessel view: Normal 3-kilmly-pfzntgq view: normal Stomach: Appears normal Kidneys: Appears [...] normal. Recommendation 4 weeks. Coding ======= Description: 49325-55 Follow Up Ultrasound Description: 12352-97 BPP without NST Licensed Optician: Delmy Xiong RDMS Physician: John Mendoza MD, FACOG Electronically signed by: John Mendoza MD, FACOG at: 14:18 Procedure Note John Mendoza MD - 12/12/2024 PAT NAME: FILI PHILLIP [facility] REC#: [id number] DA: 2000 PAT GEND: F PAT TYPE: O EXAM XIAO: [id number] REF PHYS PEPITO BUITRAGO Comparison Studies The findings of this study are compared to the prior ultrasound studydated 11/05/24 Patient Status Outpatient Indication ======== CHTN. Rheumatoid arthritis. Maternal chiari malformation. Hx SVT withablation 2022. Vapes. Obesity BMI 33. Maternal Assessment Rjxyvb759 cm Kajjih18 kg Weight (lb)205 lb BMI33.34 kg/m Method ======= Transabdominal ultrasound examination. View: Adequate view ========= Beltran . Number of fetuses: 1 Dating ====== Method of dating:based on stated TIFFANY GA by prior dsizqdoeds79 w + 4 d TIFFANY by prior assessment:02/16/2025 Ultrasound examination on:12/12/2024 GA by U/S based upon:AC, BPD, Femur, HC GA by U/S32 w + 0 d TIFFANY by U/S:02/06/2025 Previous dating:based on stated TIFFANY, selected on 11/05/2024 Agreed TIFFANY of previous datin02/16/2025 Assigned:based on stated TIFFANY, selected on 12/12/2024 Assigned GA30 w + 4 d Assigned TIFFANY:02/16/2025 ejubrg990 d Biometry Standard BPD81.3 mm 32w 5d 92% Hadlock VOA534.8 mm 33w 6d 98% Ermelinda HC300.1 mm 33w 2d 86% Hadlock AC256.3 mm 29w 6d 24% Hadlock Femur61.3 mm 31w 6d 71% Hadlock Gqradxw06.5 mm 30w 4d 55% Ermelinda HC / AC1.17 EFW1,681 g 30w 4d 52% Hadlock EFW (lb)3 lb EFW (oz)11 oz EFW by:Hadlock (IWO-MA-SM-FL) Extended Cav. septi pel. tr4.8 mm Vp6.1 mm Nasal bone10.4 mm Head / Face / Neck Cephalic index0.78 39% Nicolaides Extremities / Bony Struc FL / BPD0.75 FL / HC0.20 FL / AC0.24 Other Structures SHI764 bpm General Evaluation Cardiac activity present. FHR [...] LVOT view:Normal Heart / Thorax 3-vessel view:Normal 1-ayjnff-dtaiyxe view:normal Stomach:Appears normal Kidneys:Appears normal Bladder:Appears normal [...] are normal. Recommendation 4 weeks. Coding ======= Description:22028-52 Follow Up Ultrasound Description: BPP without NST Licensed Optician: Delmy Xiong RDMS Physician: John Mendoza MD, FACOG Electronically signed by: John Mendoza MD, FACOG at: 14:18 us John Mendoza MD IMG US ORDERABLES Final Result documented in this encounter Visit Diagnoses Diagnosis Paroxysmal SVT (supraventricular tachycardia) Chronic hypertension complicating or reason for care during , second trimester documented in this encounter Care Teams Home Visits Nurse Relationship Specialty Start Date End Date Destiny Seymour PA [address] [facility] [address] [place] [id number] PCP - General Physician Technology And Engineering Teacher 09/14/22 documented as of this encounter
--- OUTSIDE RECORDS SUMMARY | 2024-12-12 13:45 | XMS_ITS | Encounter Summary ---
Author Organization [facility] Address [address] [place] [phone] Care Team Providers Care Operator Engineer Name Role Phone Destiny Seymour Primary Care Provider [phone] Reason for Referral * Diagnostic Imaging (Routine) - Authorized Specialty Diagnoses / Procedures Referred By Contac t Referred To Contact Radiology Diagnoses Chronic hypertension complicating or reason for care during , second trimester Procedures [facility] David Mendoza MD [address] [facility] [address] [place] [address] Phone: tel: fax: [facility] US PER DIAG CTR [address] [place] [address] Phone: tel: Referral ID Status Reason Start Date Expiration Date V isits Requested Visits Authorized [id number] Authorized 12/13/2024 03/14/2026 1 1 Reason for Visit * Reason Comments CHTN; maternal SVT; RA; maternal chiari malf. Encounter Details Date Type Department Care Team (Late st Contact Info) Description 12/12/2024 1:45 PM EDT Office Visit [facility] MATERNAL MEDICINE [address] [facility] [address] [place] [address] David Mendoza MD [address] [facility] [address] [place] [phone] Chronic hypertension complicating or reason for care [...] 12/13/2024 08:24 AM Modules accepted: Orders * eBth Morgan RN - 12/12/2024 1:45 PM EDT [...] mouth Daily., Disp: , Rfl: nystatin (MYCOSTATIN) 745398 UNIT/GM powder, As Needed., Disp: , Rfl: [...] CVS. David Mendoza MD, FACOG Maternal Medicine, [facility] documented in this encounter Plan of Treatment Scheduled Orders Name Type Priority Associated Diagnoses Orde r Schedule [facility] Imaging Routine Chronic hypertension complicating or reason for care during , second trimester Expected: 12/18/2024 (Approximate), Expires: 12/13/2025 documented as of this encounter Visit Diagnoses Diagnosis Chronic hypertension complicating or reason for care during , second trimester- Primary documented in this encounter Care Teams Operator Engineer Relationship Specialty Start Date End Date Destiny Seymour PA [address] [facility] [address] [place] [address] PCP - General Physician Jumpbasting Armhole Baster 09/14/22 documented as of this encounter
--- OUTSIDE RECORDS SUMMARY | 2024-12-12 13:45 | XMS_ITS | Encounter Summary ---
Author Organization [facility] Address [address] [place] [id number] Care Team Providers Care Electronic Plotting System Operator Name Role Phone Destiny Seymour Primary Care Provider [phone] Reason for Referral * Diagnostic Imaging (Routine) - Authorized Specialty Diagnoses / Procedures Referred By Contac t Referred To Contact Radiology Diagnoses Chronic hypertension complicating or reason for care during , second trimester Procedures [facility] David Mendoza MD [address] [facility] [address] [place] [address] Phone: tel: fax: [facility] PER DIAG [facility] [address] [place] [address] Phone: tel: Referral ID Status Reason Start Date Expiration Date V isits Requested Visits Authorized [id number] Authorized 12/13/2024 03/14/2026 1 1 Reason for Visit * Reason Comments CHTN; maternal SVT; RA; maternal chiari malf. Encounter Details Date Type Department Care Team (Late st Contact Info) Description 12/12/2024 1:45 PM EDT Office Visit [facility] MATERNAL MEDICINE [address] [facility] [address] [place] [address] David Mendoza MD [address] [facility] [address] [place] [id number] Chronic hypertension complicating or reason for care [...] mouth Daily., Disp: , Rfl: nystatin (MYCOSTATIN) 163762 UNIT/GM powder, As Needed., Disp: , Rfl: [...] [facility]. David Mendoza MD, FACOG Maternal Medicine, [facility] documented in this encounter Plan of Treatment Scheduled Orders Name Type Priority Associated Diagnoses Orde r Schedule [facility] Imaging Routine Chronic hypertension complicating or reason for care during , second trimester Expected: 12/18/2024 (Approximate), Expires: 12/13/2025 documented as of this encounter Visit Diagnoses Diagnosis Chronic hypertension complicating or reason for care during , second trimester- Primary documented in this encounter Care Teams Electronic Plotting System Operator Relationship Specialty Start Date End Date Destiny Seymour PA [address] [place] [address] [facility] [address] [place] [address] PCP - General Physician Infection Control Manager 09/14/22 documented as of this encounter
--- OUTSIDE RECORDS SUMMARY | 2025-01-17 22:36 | XMS_ITS | Encounter Summary ---
Author Organization [facility] Address [address] [place] [id number] Care Team Providers Care Associate Director Qa Name Role Phone Destiny Seymour Primary Care Provider [phone] Reason for Visit * Reason Comments Elevated Blood Pressure * Auth/Cert (Routine) Specialty Diagnoses / Procedures Referred By Contac t Referred To Contact Diagnoses Chronic hypertension complicating or reason for care during , third trimester Referral ID Status Reason Start Date Expiration Date Visits Re quested Visits Authorized [id number] 1 1 Encounter Details Date Type Department Care Team (Late st Contact Info) Description 01/17/2025 10:36 PM EDT - 01/20/2025 12:12 PM EDT Hospital Encounter [facility] [address] [place] [address] Zeb Gonzalez MD [address] [facility] [address] [place] [address] Discharge Disposition: Home or Self Care 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 Tobacco Use Types Packs/Day Years Used Date Smoking Tobacco: Never Passive Smoke Exposure: Past Smokeless Tobacco: Never Alcohol Use Standard Drinks/Week Comments Not Currently 2 (1 standard drink = 0.6 oz pur e alcohol) socially C Utilities Answer Date Recorded In the past 12 months has [employer], gas, oil, or water company threatened to shut off services in your home? No 01/17/2025 AUDIT-C Answer Date Recorded Q1: How often do you have a drink containing alcohol? Never 01/17/2025 Q2: How many drinks containi ng alcohol do you have on a typical day when you are drinking? Patient does not drink Q3: How often do you have si x or more drinks on one occasion? Never 01/17/2025 Overall Financial Resource Strain (CARDIA) Answe r Date Recorded How hard is it for you to pa y for the very basics like food, housing, medical care, and heating? Not hard at all 01/17/2025 [facility] - Occupational Stress Questionnaire Answer Date Recorded Do you feel stress - tense, restless, nervous, or anxious, or unable to sleep at night because your mind is troubled all the time - these days? To some extent 01/17/2025 Exercise Vital Sign Answer Date Recorde d On average, how many days pe r week do you engage in moderate to strenuous exercise (like a brisk walk)? 0 days 01/17/2025 On average, how many minutes do you engage in exercise at this level? 0 min 01/17/2025 Hunger Vital Sign Answer Date Recorded Within the past 12 months, y ou worried that your food would run out before you got the money to buy more. Never true 01/18/20 25 Within the past 12 months, t he food you bought just didn't last and you didn't have money to get more. Never true 01/17/2025 [facility] - Transportation Answer Date Re corded In the past 12 months, has l ack of transportation kept you from medical appointments or from getting medications? No 12/31 In the past 12 months, has l ack of transportation kept you from meetings, work, or from getting things needed for daily living? No 01/17/2025 Abuse Screen Answer Date Recorded Feels Unsafe at Home or Work/School no 01/17/2025 Feels Threatened by Someone no 12/31 Does Anyone Try to Keep You From Having Contact with Others or Doing Things Outside Your Home? no 01/17/2025 Physical Signs of Abuse Present no 01/17/2025 Housing Stability Answer Date Recorded Current Living Arrangements apartment 12/31 Potentially Unsafe Housing Conditions none 01/17/2025 Family and Community Support Answer Myron e Recorded If for any reason you need h elp with day-to-day activities such as bathing, preparing meals, shopping, managing finances, etc., do you get the help you need? I don't need any help 01/17/2025 How often do you feel lonely or isolated from those around you? Never 01/17/2025 Employment Answer Date Recorded Do you want help finding or keeping work or a job? I do not need or want help 01/17/2025 Disabilities Answer Date Recorded Difficulty Concentrating, Remembering or Making Decisions no 01/17/2025 Difficulty Managing Errands Independently no 01/17/2025 Education Answer Date Recorded Do you want help with school or training? For example, starting or completing job training or getting a high school diploma, GED or equivalent No 01/17/2025 Preferred Language Congolese 01/17/2025 PHQ-2 Answer Date Recorded Patient Health Questionnaire-2 Score 3 01/17/2025 Estimated Date of Delivery Comme nts Yes 02/16/2025 Based on Patient Reported Sex and Gender Information Value Date Recorded Sex Assigned at Not on file Legal Sex Female 4:51 PM EDT Gender Identity Not on file Sexual Orientation Not on file documented as of this encounter Last Filed Vital Signs Vital Sign Reading Time Taken Comments Blood Pressure 137/85 01/20/2025 7:34 AM EDT Pulse 78 01/20/2025 7:34 AM EDT Temperature 36.8 C (98.2 F) 01/20/2025 7:34 AM EDT Respiratory Rate 18 01/20/2025 7:34 AM EDT Oxygen Saturation 94% 01/18/2025 6:31 PM EDT Inhaled Oxygen Concentration - - Weight 95.7 kg (211 lb) 01/17/2025 11:10 PM EDT Height 167.6 cm (5' 6 ) 01/17/2025 11:10 PM EDT Body Mass Index 34.06 01/17/2025 11:10 PM EDT documented in this encounter Functional Status * Audit-C Score Answer Date of Assessment Author 0 01/17/2025 11:34 PM EDT Atiya Hicks RN * Question Answer Date of Assessment Author Q1: How often do you have a drink containing alcohol? Never 01/17/2025 11:34 PM EDT Atiya Hicks RN Q2: How many drinks containing alcohol do you have on a typical day when you are drinking? Patient does not drink 01/17/2025 11:34 PM Atiya Maurer RN Q3: How often do you have six or more drinks on one occasion? Never 01/17/2025 11:34 PM HARLANT Atiya Hicks RN * Over the past 2 weeks, how often have you been bothered by any of the following problems? Question Answer Date of Assessment Author Patient Health Questionnaire -2 Score 3 01/17/2025 11:34 PM HARLANT Alexandrea Hicks RN * Question Answer Date of Assessment Author 1. Wish to be (Past 1 Month) No 01/17/2025 11:07 PM HARLANT Alexandrea Hicks RN 2. Non-Specific Active Suicidal Thoughts (Past 1 Month) No 01/17/2025 11:07 PM HARLANT Alexandrea Hicks RN * Calculated C-SSRS Risk Score (Lifetime/Recent) Answer Date of Assessment Author No Risk Indicated 01/17/2025 11:07 PM EDT Atiya Gordon RN * [place] Suicide Severity Rating Scale (Screener/Recent Self-Report) Question Answer Date of Assessment Author 6. Suicidal Behavior (Lifetime) No 01/17/2025 11:07 PM Alexandrea Maurer RN * Question Answer Date of Assessment Author Little interest or pleasure in doing things Nearly every day 01/17/2025 11:34 PM Alexandrea Maurer RN Feeling down, depressed, or hopeless Not at all 01/17/2025 11:34 PM Jessica Maurer RN documented as of this encounter Discharge Summaries * Neymar Winters MD - 01/20/2025 11:41 AM EDT Admission date: 01/17/2025 Discharge date: 01/20/25 Referring Provider: Zeb Gonzalez MD Admission diagnosis: Chronic hypertension complicating or reason for care during , third trimester [O10.913] Chronic hypertension complicating or reason for care during , third trimester Discharge diagnosis: Chronic hypertension without superimposed pre-eclampsia Consultants: None Hospital course: Fili was transferred at 35 5/7 weeks on 01/17. She was admitted for concerns of superimposed pre-eclampsia. She had no severe range blood pressures, her labs were normal, her headache was resolved with Tylenol. Her 24 hr urine protein was 262. PDC USN was reported to be a normally grown fetus with BPP 8/8. Vitals: 01/20/25 0734 BP: 137/85 Pulse: 78 Resp: 18 Temp: 98.2 ??F (36.8 ??C) SpO2: GENERAL: Well-developed, well-nourished in no acute distress. ABD: Gravid NST: Reactive SVE:Deferred FHT's 130s EXTREMITIES: No clubbing, cyanosis or edema. PSYCHIATRIC: Normal affect and mood. Discharge condition: stable Discharge diet Dietary Orders (From admission, onward) Start Ordered 01/17/252321 Diet: Regular/House; Fluid Consistency: Thin (IDDSI 0) Diet Effective Now References: Diet Order Definitions Question Answer Comment Diets: Regular/House Fluid Consistency: Thin (IDDSI 0) 01/17/252321 Additional Instructions: Call with headache that does not resolve with treatment, BPs greater than 160/110. Upper abdominal pain and vision changes Medications: Discharge Medications Changes to Medications Instructions Start Date labetalol 200 MG tablet Commonly known as: NORMODYNE What changed: when to take this 200 mg, Oral, 3 Times Daily Continue These Medications Instructions Start Date albuterol sulfate HFA 108 (90 Base) MCG/ACT inhaler Commonly known as: PROVENTIL HFA;VENTOLIN HFA;PROAIR HFA 2 puffs, Every 6 Hours PRN aspirin 81 MG chewable tablet 81 mg, 2 Times Daily ferrous sulfate 324 (65 Fe) MG tablet delayed-release EC tablet 324 mg, Daily With Breakfast MAGnesium-Oxide 400 (240 Mg) MG tablet Generic drug: Magnesium Oxide -Mg Supplement 1 tablet, Daily ondansetron ODT 4 MG disintegrating tablet Commonly known as: ZOFRAN-ODT 4 mg, Every 6 Hours PRN (CLASSIC) vitamin 28-0.8 MG tablet tablet Generic drug: vitamin Daily Stop These Medications bisoprolol 5 MG tablet Commonly known as: ZEBeta NIFEdipine CC 30 MG 24 hr tablet Commonly known as: ADALAT CC nystatin 249894 UNIT/GM powder Commonly known as: MYCOSTATIN Disposition:Home or Self Care Follow up: She will have an-other NST later this week and is scheduled for an induction on 01/28 Neymar Winters MD documented in this encounter Discharge Instructions * Attachments The following attachments cannot be sent through Care Everywhere. * High Blood Pressure During (Congolese) documented in this encounter Medications at Time of Discharge albuterol sulfate HFA 108 (90 Base) MCG/ACT inhaler Inhale 2 puffs Every 6 (Six) Hours As Needed for Shortness of Air. 10/31/2024 aspirin 81 MG chewable tablet Chew 1 tablet 2 (Two) Times a Day. ferrous sulfate 324 (65 Fe) MG tablet delayed-release EC tablet Take 1 tablet by mouth Daily With Breakfast. labetalol (NORMODYNE) 200 MG tablet Take 1 tablet by mouth 3 (Three) Times a Day. 90 tablet 01/20/2025 MAGnesium-Oxide 400 (240 Mg) MG tablet Take 1 tablet by mouth Daily. 08/24/2024 ondansetron ODT (ZOFRAN-ODT) [address] 1 tablet on the tongue Every 6 (Six) Hours As Needed. 10/11/2024 vitamin (, CLASSIC, vitamin) tablet Take by mouth Daily. documented as of this encounter Progress Notes * Zeb Gonzalez MD - 01/19/2025 7:25 AM EDT Fili Mercado Kenji [id number] 2000 Referring physician: Oliverio Amanda MD Chief complaint: chronic hypertension with superimposed preeclampsia S/ complains of SCANLON. ROS neg for CP, SOB, contractions, bleeding, or leaking. Baby is moving, somewhat less than usual O/ 144/84, 75, 16, 97.5 Lungs: CTA Heart: RRR, no m,g,r Abd: soft, non-tend, +BS Fund: soft, non-tend Ext: no calf tend FHT's: indication: chron HTN with superimposed preeclampsia, onset 4, Offset 0016, baseline 130, mod BTB variability, mult accels (15 X 15), No decels, rare contractions, interpretation: reactive NST Labs: 24 hr urine pending A/1)IUP 36 0/7 weeks- status reassuring 2)chron HTN with poss superimposed preeclampsia- BP's stable on current medsl 24 hr urine ongoing 3)asthma 4)rheum arthritis 5)chiari malformation (type 1) P/1)continue in house management, complete 24 hr urine 2)fioricet for SCANLON this am Zeb Gonzalez MD 01/19/2025 07:26 EDT * Zeb Gonzalez MD - 01/18/2025 7:18 AM EDT Fili Rosen [id number] 2000 Referring physician: Oliverio Amanda MD Chief complaint: chronic hypertension with superimposed preeclampsia S/ No complaints. ROS neg for SCANLON, CP, SOB, contractions, bleeding, or leaking. Baby is moving, somewhat less than usual O/ 118-144/71-88, 82, 16, 97.7 Lungs: CTA Heart: RRR, no m,g,r Abd: soft, non-tend, +BS Fund: soft, non-tend Ext: no calf tend FHT's: indication: chron HTN with superimposed preeclampsia, onset 2320, Offset 2352, baseline 130, mod BTB variability, mult accels (15 X 15), No decels, rare contractions, interpretation: reactive NST Labs: admission labs reviewed and normal A/1)IUP 35 6/7 weeks- status reassuring 2)chron HTN with poss superimposed preeclampsia- BP's stable on current medsl 24 hr urine ongoing 3)asthma 4)rheum arthritis 5)chiari malformation (type 1) P/1)continue in house management, complete 24 hr urine 2)PDC consult Zeb Gonzalez MD 01/18/2025 07:18 EDT documented in this encounter H&P Notes * Zeb Gonzalez MD - 01/17/2025 11:00 PM EDT Fili Rosen 2000 [id number] Referring physician: Oliverio Amanda MD CC: chron HTN with superimposed preeclampsia HPI: Patient is 24 y.o. female currently at 35w5d presented to [facility] for c/o headache andelevated BP at home. Pt had several severe range pressures there and received a 20mg and 40mg dose of IV labetalol prior to transfer. Pt was started on magnesium (4g/2g) and transferred here for care. PNC comp by chron HTN on labetalol 200mg tid and procardia 30XL/d and asthma. SCANLON was initially 7-8 and is now 08/12. Labs at [facility] were all normal. PMH: Current meds: albuterol inhaler (almost daily use), labetalol 200mg tid, magnesium, Procardia 30XL/d, baby ASA Illnesses: HTN, SVT (s/p cardiac ablation), Rheum arthritis, chiari malformation (type 1) Surgeries: ganglion cyst removal (rt), heart ablation, EGD, colonoscopy Allergies: erythromycin- hives, SOB Past OB History: OB History Para Term AB Living 1 0 0 0 0 0 SAB IAB Ectopic Molar Multiple Live Births 0 0 0 0 0 0 # Outcome Date GA Lbr Abel/2nd Weight Sex Type Anes PTL Lv 1 Current SH: tob vapes with nicotine , EtOH neg, drugs neg General ROS: SCANLON. All other systems reviewed and are negative. Physical Examination: General appearance - alert, well appearing, and in no distress Vital signs - BP (!) 149/102 Pulse 76 Resp 20 HEENT: normocephalic, atraumatic,oropharynx clear, appearance of ears and nose normal Neck - supple, no significant adenopathy, no thyromegaly Lymphatics - no palpable lymphadenopathy in the neck or groin, no hepatosplenomegaly Chest - clear to auscultation, no wheezes, rales or rhonchi, respiratory effort non-labored Heart - normal rate, regular rhythm, no murmurs, rubs, clicks or gallops, no JVD, trace lower extremity edema Abdomen - soft, nontender, nondistended, no masses, no hepatosplenomegaly no rebound tenderness noted, bowel sounds normal Vaginal Exam: 1/50%/-2, no blood in vault,external genitalia normal Extremities -trace pedal edema noted, no calf tenderness Skin -warm and dry, normal coloration and turgor, no rashes, no suspicious skin lesions noted monitoring: indication chron HTN with superimposed preeclampsia, onset 2244, offset 2305, baseline 130, mod BTB variability, multiple accels (15 X 15), no decels, occas contractions, interpretation reactive NST Radiology Assessment 1)IUP 35 5/7 weeks 2)chron HTN with poss superimposed preeclampsia- initial BP here in mild Range. 3)asthma 4)rheum arthritis- currently on no meds 5)chiari type 1 malformation Plan 1)admit 2)continue magnesium 3)continue current antihypertensives 4)labs 5)deliver for severe range pressures, abn labs, worse SCANLON Zeb Antonio. MD Carlos 01/17/2025 23:00 EDT documented in this encounter Consult Notes * Akanksha Moore MD - 01/20/2025 11:09 AM EDTAssociated Order(s): IP CONSULT TO MATERNAL & MEDICINE Maternal Medicine Consult Patient Name: Fili Rosen : 2000 Date of Service: 01/20/2025 Requesting Provider: Zbe Gonzalez MD Consultation due to: Chronic hypertension complicating or reason for care during , third trimester ID: 24 y.o. at 36w1d transferred from outside hospital secondary concern for possible superimposed preeclampsia at 35+wks when they cannot delivery until 36wks. Patient reports presenting to OB Triage at OSH secondary to increased BP's and severe headache. Shereceived medication to bring her BP's down and was started on magnesium sulfate for maternal neuroprotection prior to transport. course significant for: Patient Active Problem List Diagnosis *Chronic hypertension complicating or reason for care during , third trimester [O10.913] Chronic hypertension complicating or reason for care during , second trimester [O10.912] Paroxysmal SVT (supraventricular tachycardia) [I47.10] Labs Lab Results Component Value Date HGB 9.8 (L) 01/19/2025 ABO O 01/18/2025 RH Positive 01/18/2025 ABSCRN Negative 01/17/2025 OB HISTORY OB History 1 Para 0 Term 0 0 AB 0 Living 0 SAB 0 IAB 0 Ectopic 0 Molar 0 Multiple 0 Live Births 0 PAST MEDICAL HISTORY Past Medical History: Diagnosis Date Anxiety Arrhythmia Chiari malformation type I Depression GERD (gastroesophageal reflux disease) Heart murmur History of supraventricular tachycardia Hypertension PONV (postoperative nausea and vomiting) Rheumatoid arthritis Thyroid nodule PAST SURGICAL HISTORY has a past surgical history that includes Ganglion cyst excision (Right, 09/17/2019); Cardiac electrophysiology procedure (N/A, 11/25/2022); and Ablation of dysrhythmic focus. CURRENT MEDICATIONS No current facility-administered medications on file prior to encounter. Current Outpatient Medications on File Prior to Encounter Medication Sig Dispense Refill albuterol sulfate HFA 108 (90 Base) MCG/ACT inhaler Inhale 2 puffs Every 6 (Six) Hours As Needed for Shortness of Air. aspirin 81 MG chewable tablet Chew 1 tablet 2 (Two) Times a Day. ferrous sulfate 324 (65 Fe) MG tablet delayed-release EC tablet Take 1 tablet by mouth Daily With Breakfast. labetalol (NORMODYNE) 200 MG tablet Take 1 tablet by mouth Every 12 (Twelve) Hours. (Patient takingdifferently: Take 1 tablet by mouth 3 times a day.) MAGnesium-Oxide 400 (240 Mg) MG tablet Take 1 tablet by mouth Daily. (Patient taking differently: Take 1 tablet by mouth 3 times a day.) NIFEdipine CC (ADALAT CC) 30 MG 24 hr tablet Take 1 tablet by mouth Daily. ondansetron ODT (ZOFRAN-ODT) [address] 1 tablet on the tongue Every 6 (Six) Hours As Needed. vitamin (, CLASSIC, vitamin) tablet Take by mouth Daily. bisoprolol (ZEBeta) 5 MG tablet Take 1 tablet by mouth Daily. 2.5mg daily (Patient not taking: Reported on 12/12/2024) nystatin (MYCOSTATIN) 512261 UNIT/GM powder As Needed. ALLERGIES Erythromycin SOCIAL HISTORY 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 Tobacco Use Smoking Status Never Passive exposure: Past Smokeless Tobacco Never 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 Substance and Sexual Activity Alcohol Use Not Currently Alcohol/week: 2.0 standard drinks of alcohol Types: 2 Cans of beer per week Comment: socially 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 Substance and Sexual Activity Drug Use Never FAMILY HISTORY The patient has a family history of not on file. REVIEW OF SYSTEMS Reports movement is normal Denies leakage of amniotic fluid. Denies vaginal bleeding She reports No contractions All other systems reviewed and are negative PHYSICAL EXAMINATION Vital Signs Range for the last 24 hours Temperature: Temp: [98 ??F (36.7 ??C)-98.8 ??F (37.1 ??C)] 98.2 ??F (36.8 ??C) Temp Source: Temp src: Oral BP: BP: (130-155)/(69-85) 137/85 Pulse: Heart Rate: [55-78] 78 Respirations: Resp: [16-18] 18 Weight: 95.7 kg (211 lb) Physical Exam Constitutional: Appearance: Normal appearance. She is normal weight. HENT: Head: Normocephalic. Cardiovascular: Rate and Rhythm: Normal rate. Pulmonary: Effort: Pulmonary effort is normal. Musculoskeletal: General: Normal range of motion. Cervical back: Normal range of motion and neck supple. Skin: General: Skin is warm and dry. Neurological: General: No focal deficit present. Mental Status: She is alert and oriented to person, place, and time. Psychiatric: Mood and Affect: Mood normal. Behavior: Behavior normal. NST: 140's, moderate variability, +accels, -decels TOCO: ctx's q 2-4mins Ultrasound: Today -- Vtx, EFW 41st%, AC 32nd%, nl DUSTIN, anterior placenta, nl anatomy, BPP 8/8, UA Dopplers wnl. Labs: Lab Results Component Value Date WBC 7.71 01/19/2025 HGB 9.8 (L) 01/19/2025 HCT 29.5 (L) 01/19/2025 MCV 90.8 01/19/2025 PLT 216 01/19/2025 CREATININE 0.58 01/19/2025 URICACID 5.2 01/19/2025 AST 11 01/19/2025 ALT 8 01/19/2025 LDH 148 01/19/2025 24hr urine protein: 262mgs/day ASSESSMENT/PLAN: 24 y.o. at 36w1d with complicated by CHTN transferred from outside hospital at 35+wks to rule-out superimposed preeclampsia. Since admission, BP's have remain normal to mild range and all preeclampsia labs have been normal. 24hr urine protein was normal at 262mgs/day. SCANLON has resolved. status has been consistently reassuring. Ultrasound today with normal growth and reassuring testing. Stable for discharge home Preeclampsia precautions reviewed with patient Recommend patient be seen later this week for NST and repeat preeclampsia labs later this week Recommend delivery at 37wks Approximately 25 minutes floor time was spent in care of this patient, of which greater than 50% was spent in [id number] consultation and coordination of care. Akanksha Moore MD 01/20/25 11:09 EDT documented in this encounter Nursing Notes * Felecia Wiseman RN - 01/20/2025 5:41 AM EDT Problem: Adult Inpatient Plan of Care Goal: Plan of Care Review 01/20/2025 0540 by Felecia Wiseman RN Outcome: Progressing 01/20/2025 05 by Felecia Wiseman RN Outcome: Progressing 01/20/2025 0540 by Felecia Wiseman RN Outcome: Progressing Goal: Patient-Specific Goal (Individualized) 01/20/2025 05 by Felecia Wiseman RN Outcome: Progressing 01/20/2025 05 by Felecia Wiseman RN Outcome: Progressing 01/20/2025 0540 by Felecia Wiseman RN Outcome: Progressing Goal: Absence of Hospital-Acquired Illness or Injury 01/20/2025 0540 by Felecia Wiseman RN Outcome: Progressing 01/20/2025 0540 by Felecia Wiseman RN Outcome: Progressing 01/20/2025 0540 by Felecia Wiseman RN Outcome: Progressing Intervention: Identify and Manage Fall Risk Recent Flowsheet Documentation Taken 01/19/20252099 by Felecia Wiseman RN Safety Promotion/Fall Prevention: safety round/check completed Intervention: Prevent Skin Injury Recent Flowsheet Documentation Taken 01/19/2025 2100 by Felecia Wiseman RN Body Position: position changed independently Goal: Optimal Comfort and Wellbeing 01/20/2025 05 by Felecia Wiseman RN Outcome: Progressing 01/20/2025 0540 by Felecia Wiseman RN Outcome: Progressing 01/20/2025 0540 by Felecia Wiseman RN Outcome: Progressing Intervention: Monitor Pain and Promote Comfort Recent Flowsheet Documentation Taken 01/20/2025 0537 by Felecia Wiseman RN Pain Management Interventions: pain medication given Intervention: Provide Person-Centered Care Recent Flowsheet Documentation Taken 01/19/2025 2100 by Felecia Wiseman RN Trust Relationship/Rapport: care explained choices provided emotional support provided empathic listening provided questions answered questions encouraged reassurance provided thoughts/feelings acknowledged Goal: Readiness for Transition of Care 01/20/2025 0540 by Felecia Wiseman RN Outcome: Progressing 01/20/2025 0540 by Felecia Wiseman RN Outcome: Progressing 01/20/2025 0540 by Felecia Wiseman RN Outcome: Progressing Goal Outcome Evaluation: documented in this encounter Plan of Treatment Not on file documented as of this encounter Procedures Procedure Name Priority Date/Time Associated Diagnosis Comments [facility] STAT 01/20/2025 10:43 AM EDT PRE-ECLAMPSIA PANEL STAT 01/19/2025 9 :10 AM EDT CBC (NO DIFF) STAT 01/19/2025 9:10 AM EDT PROTEIN, URINE, 24 HOUR Routine 01/19/2025 7:36 AM EDT ABORH 2ND SPECIMEN VERIFICATION STAT 01/18/2025 1:33 AM EDT TREPONEMA PALLIDUM AB W/REFLEX RPR Routine 01/17/2025 11:50 PM EDT CBC (NO DIFF) Routine 01/17/2025 11:50 PM EDT TYPE AND SCREEN Routine 01/17/2025 11:50 PM EDT URIC ACID Routine 01/17/2025 11:50 PM EDT LACTATE DEHYDROGENASE Routine 01/17/2025 11:50 PM EDT COMPREHENSIVE METABOLIC PANEL Routine 01/17/2025 11:50 PM EDT SCANNED - TELEMETRY 01/17/2025 SCANNED - LABS 01/17/2025 documented in this encounter Results * Replaced by [facility] (01/20/2025 10:43 AM EDT) Anatomical Region Laterality Modality Ultrasound 01/20/2025 10:4 2 AM EDT Narrative 01/20/2025 11:40 AM EDT PAT NAME: FILI ROSEN MED REC#: [id number] DA: [id number] PAT GEND: F PAT TYPE: I EXAM MYRON: [id number] REF PHYS PEPITO BUITRAGO Comparison Studies The findings of this study are compared to the prior ultrasound study dated 12/12/24 Patient Status Inpatient Indication ======== CHTN. Rheumatoid arthritis. Maternal chiari malformation. Hx SVT with ablation 2022. Vapes. Obesity BMI 34. Maternal Assessment Height 167 cm Weight 96 kg Weight (lb) 211 lb BMI 34.32 kg/m Method ======= Transabdominal ultrasound examination. View: Adequate view ========= Beltran . Number of fetuses: 1 Dating ====== Method of dating: based on stated TIFFANY GA by prior assessment 36 w + 1 d TIFFANY by prior assessment: 02/16/2025 Ultrasound examination on: 01/20/2025 GA by U/S based upon: AC, BPD, Femur, HC GA by U/S 36 w + 1 d TIFFANY by U/S: 02/16/2025 Previous dating: based on stated TIFFANY, selected on 12/12/2024 Agreed TIFFANY of previous datin02/16/2025 Assigned: based on stated TIFFANY, selected on 01/20/2025 Assigned GA 36 w + 1 d Assigned TIFFANY: 02/16/2025 length 280 d Biometry Standard BPD 89.1 mm 36w 0d 57% Hadlock OFD 113.1 mm 38w 4d 81% Ermelinda HC 330.1 mm 37w 4d 55% Hadlock AC 312.4 mm 35w 1d 32% Hadlock Femur 70.2 mm 36w 0d 42% Hadlock HC / AC 1.06 EFW 2,755 g 35w 5d 41% Hadlock EFW (lb) 6 lb EFW (oz) 1 oz EFW by: Hadlock ([id number]-[id number]-FL) Extended Cav. septi pel. tr 5.1 mm Electronic Die Maker 5.1 mm Head / Face / Neck Cephalic index 0.79 23% Nicolaides Extremities / Bony Struc FL / BPD 0.79 FL / HC 0.21 FL / AC 0.22 Other Structures FHR 138 bpm General Evaluation Cardiac activity present. FHR 138 bpm. movements present. Presentation cephalic. Placenta Placental site: anterior. Amniotic fluid Amount of AF: normal. MVP 5.1 cm. DUSTIN 12.1 cm. Q1 2.2 cm, Q2 4.7 cm, Q3 0.0 cm, Q4 5.1 cm. Anatomy Cranium: Normal Cavum septi pellucidi: Normal Cerebellum: suboptimal Cisterna magna: suboptimal Head / Neck Rt lateral ventricle: Normal Lt lateral ventricle: Normal Lips: Normal Profile: Normal Nose: Normal 4-chamber view: Appears normal RVOT view: Normal LVOT view: Normal Heart / Thorax 3-vessel view: Normal 2-eftxzd-bimuhdg view: normal Stomach: Appears normal Kidneys: Appears normal Bladder: Appears normal Gender: female Wants to know gender: yes Doppler Arterial Umbilical A PI 0.82 51% Nasreen Umbilical A RI 0.58 55% Nasreen Umbilical A PS -49.55 cm/s Umbilical A ED -20.66 cm/s Umbilical A TAmax -35.93 cm/s Umbilical A MD -19.31 cm/s Umbilical A S / D 2.41 51% Ansreen Umbilical A HR 148 bpm Biophysical Profile 2: breathing movements 2: Gross body movements 2: tone 2: Amniotic fluid volume 8/8 Biophysical profile score Interpretation: normal Impression ========= Jess is currently inpatient secondary to CHTN and concern for possible superimposed preeclampsia. On today's exam, SIUP is noted in cephalic presentation with biometry measuring consistent with dates. EFW overall measures at the 41st percentile. AC measures at the 32nd percentile. There is a normal amount of amniotic fluid. Placenta is anterior and is calcified. BPP is 8/8. UA Dopplers are normal. Limited but normal appearing anatomy is visualized. Recommendation Stable for discharge home with precautions. Recommend follow-up with primary OB later this week for NST and preeclampsia labs. Recommend delivery at 37wks. Coding ====== Description: 99687-68 Follow Up Ultrasound Description: 10239-11 BPP without NST Description: 60240-53 Doppler Umbilical Artery Transaction Coordinator: Delmy Xiong RDMS Physician: Akanksha Moore MD Electronically signed by: Akanksha Moore MD at: 11:27 Procedure Note Akanksha Moore MD - 01/21/2025 PAT NAME: FILI ROSEN MED REC#: [id number] DA: [id number] PAT GEND: F PAT TYPE: I EXAM MYRON: [id number] REF PHYS PEPITO BUITRAGO Comparison Studies The findings of this study are compared to the prior ultrasound studydated 12/12/24 Patient Status Inpatient Indication ======== CHTN. Rheumatoid arthritis. Maternal chiari malformation. Hx SVT withablation 2022. Vapes. Obesity BMI 34. Maternal Assessment Zxorrc730 cm Gaxhza92 kg Weight (lb)211 lb BMI34.32 kg/m Method ======= Transabdominal ultrasound examination. View: Adequate view ========= Beltran . Number of fetuses: 1 Dating ====== Method of dating:based on stated TIFFANY GA by prior [id number] w + 1 d ITFFANY by prior assessment:02/16/2025 Ultrasound examination on:01/20/2025 GA by U/S based upon:AC, BPD, Femur, HC GA by U/S36 w + 1 d TIFFANY by U/S:02/16/2025 Previous dating:based on stated TIFFANY, selected on 12/12/2024 Agreed TIFFANY of previous datin02/16/2025 Assigned:based on stated TIFFANY, selected on 01/20/2025 Assigned GA36 w + 1 d Assigned TIFFANY:02/16/2025 [id number] d Biometry Standard BPD89.1 mm 36w 0d 57% Hadlock SRO550.1 mm 38w 4d 81% Ermelinda HC330.1 mm 37w 4d 55% Hadlock AC312.4 mm 35w 1d 32% Hadlock Femur70.2 mm 36w 0d 42% Hadlock HC / AC1.06 EFW2,755 g 35w 5d 41% Hadlock EFW (lb)6 lb EFW (oz)1 oz EFW by:Hadlock (WEL-ZH-OD-FL) Extended Cav. septi pel. tr5.1 mm Vp5.1 mm Head / Face / Neck Cephalic index0.79 23% Nicolaides Extremities / Bony Struc FL / BPD0.79 FL / HC0.21 FL / AC0.22 Other Structures [id number] bpm General Evaluation Cardiac activity present. FHR 138 bpm. movements present. Presentation cephalic. Placenta Placental site: anterior. Amniotic fluid Amount of AF: normal. MVP 5.1 cm. DUSTIN 12.1 cm. Q1 2.2 cm,Q2 4.7 cm, Q3 0.0 cm, Q4 5.1 cm. Anatomy Cranium:Normal Cavum septi pellucidi:Normal Cerebellum:suboptimal Cisterna magna:suboptimal Head / Neck Rt lateral ventricle:Normal Lt lateral ventricle:Normal Lips:Normal Profile:Normal Nose:Normal 4-chamber view:Appears normal RVOT view:Normal LVOT view:Normal Heart / Thorax 3-vessel view:Normal 5-kjwitj-obhyvaq view:normal Stomach:Appears normal Kidneys:Appears normal Bladder:Appears normal Gender:female Wants to know gender:yes Doppler Arterial Umbilical A PI0.82 51% Nasreen Umbilical A RI0.58 55% Nasreen Umbilical A PS-49.55 cm/s Umbilical A ED-20.66 cm/s Umbilical A TAmax-35.93 cm/s Umbilical A MD-19.31 cm/s Umbilical A S / D2.41 51% Nasreen Umbilical A HR148 bpm Biophysical Profile 2: breathing movements 2: Gross body movements 2: tone 2: Amniotic fluid volume 8/8 Biophysical profile score Interpretation: normal Impression ========= Jess is currently inpatient secondary to CHTN and concern for possiblesuperimposed preeclampsia. On today's exam, SIUP is noted in cephalic presentation with biometrymeasuring consistent with dates. EFW overall measures at the 41stpercentile. AC measures at the 32nd percentile. There is a normal amount of amniotic fluid. Placentais anterior and is calcified. BPP is 8/8. UA Dopplers are normal. Limited but normal appearing anatomy is visualized. Recommendation Stable for discharge home with precautions. Recommend follow-up with primary OB later this week for NST andpreeclampsia labs. Recommend delivery at 37wks. Coding ====== Description:56182-30 Follow Up Ultrasound Description:95655-39 BPP without NST Description:76426-15 Doppler Umbilical Artery Transaction Coordinator: Delmy Xiong RDMS Physician: Akanksha Moore MD Electronically signed by: Akanksha Moore MD at: 11:27 Neymar Winters MD IM US ORDERABLES Edited Resul t - Final * Preeclampsia Panel (01/19/2025 9:10 AM EDT) Pathologist [facility] Alkaline Phosphatase 94 39 - 117 U/L 01/19/2025 10:11 AM EDT [facility] ALT (SGPT) 8 1 - 33 U/L 01/19/2025 10:11 AM EDT [facility] AST (SGOT) 11 1 - 32 U/L 01/19/2025 10:11 AM EDT [facility] Creatinine 0.58 0.57 - 1.00 mg/dL 01/19/2025 10:11 AM EDT [facility] Total Bilirubin 0.2 0.0 - 1.2 mg/dL 01/19/2025 10:11 AM EDT [facility] LDH 148 135 - 214 U/L 01/19/2025 10:11 AM EDT [facility] Uric Acid 5.2 2.4 - 5.7 mg/dL 01/19/2025 10:11 AM EDT [facility] Blood Venipuncture / Unknown 01/19/2025 9:10 AM EDT 01/19/2025 9:39 AM EDT Jeffery Cruz DO LAB BLOOD ORDERABLES Final Result [facility]
[address] [place] [address], * (ABNORMAL) CBC (No Diff) (01/19/2025 9:10 AM EDT) Pathologist [facility] WBC 7.71 3.40 - 10.80 10*3/mm3 01/19/2025 10:10 AM EDT [facility] RBC 3.25(L) 3.77 - 5.28 10*6/mm3 01/19/2025 10:10 AM EDT [facility] Hemoglobin 9.8(L) 12.0 - 15.9 g/dL 01/19/2025 10:10 AM EDT [facility] Hematocrit 29.5(L) 34.0 - 46.6 % 01/19/2025 10:10 AM EDT [facility] MCV 90.8 79.0 - 97.0 fL 01/19/2025 10:10 AM EDT [facility] MCH 30.2 26.6 - 33.0 pg 01/19/2025 10:10 AM EDT [facility] MCHC 33.2 31.5 - 35.7 g/dL 01/19/2025 10:10 AM EDT [facility] RDW 13.2 12.3 - 15.4 % 01/19/2025 10:10 AM EDT [facility] RDW-SD 43.2 37.0 - 54.0 fl 01/19/2025 10:10 AM EDT [facility] MPV 10.0 6.0 - 12.0 fL 01/19/2025 10:10 AM EDT [facility] Platelets 216 140 - 450 10*3/mm3 01/19/2025 10:10 AM T [facility] Blood Venipuncture / Unknown 01/19/2025 9:10 AM EDT 01/19/2025 9:39 AM EDT Jeffery Cruz DO LAB BLOOD ORDERABLES Final Result [facility]
[address] [place] [address], * (ABNORMAL) Protein, Urine, 24 Hour - Urine, Clean Catch (01/19/2025 7:36 AM EDT) Protein, 24H Urine 262.2(H) 0.0 - 150.0 mg/24hours 01/19/2025 8:10 AM EDT [facility] 24H Urine Volume 5,350 mL 01/19/2025 8:10 AM EDT [facility] Time (Hours) 24 hrs 01/19/2025 8:10 AM EDT [facility] 24 Hour Urine Urine specimen obtained by clean catch procedure / Unknown 01/19/2025 7:36 AM EDT 01/19/2025 7:36 AM EDT Narrative [facility] - 01/19/2025 8:10 AM EDT Reference ranges are based on a 24 hour period, interperet results accordingly. us Zeb Gonzalez MD URINE ORDERABLES Final Result Performing Organization Address City/[facility]/ZIP Co de Phone Number [facility]
[address] [place] [address], * ABO RH Specimen Verification (01/18/2025 1:33 AM EDT) ABO Type O 01/18/2025 1:42 PM EDT [facility] RH type Positive 01/18/2025 1:42 PM EDT [facility] Blood Venipuncture / Unknown 01/18/2025 1:33 AM EDT 01/18/2025 1:45 AM EDT us Zeb Gonzalez MD BLOOD BANK TEST ORDERABLES Sintia l Result Performing Organization Address City/[facility]/ZIP Co de Phone Number [facility]
[address] [place] [address], [place] [phone] * (ABNORMAL) Comprehensive Metabolic Panel (01/17/2025 11:50 PM EDT) Glucose 81 65 - 99 mg/dL 01/18/2025 12:36 AM EDT [facility] BUN 4.3(L) 6.0 - 20.0 mg/dL 01/18/2025 12:36 AM EDT [facility] Creatinine 0.46(L) 0.57 - 1.00 mg/dL 01/18/2025 12:36 AM [facility] Sodium 137 136 - 145 mmol/L 01/18/2025 12:36 AM [facility] Potassium 4.0 3.5 - 5.2 mmol/L 01/18/2025 12:36 AM [facility] Comment:Specimen hemolyzed. Result may be falsely elevated. Chloride 105 98 - 107 mmol/L 01/18/2025 12:36 AM [facility] CO2 17.5(L) 22.0 - 29.0 mmol/L 01/18/2025 12:36 AM [facility] Calcium 8.3(L) 8.6 - 10.5 mg/dL 01/18/2025 12:36 AM [facility] Total Protein 6.5 6.0 - 8.5 g/dL 01/18/2025 12:36 AM [facility] Albumin 3.6 3.5 - 5.2 g/dL 01/18/2025 12:36 AM [facility] ALT (SGPT) 10 1 - 33 U/L 01/18/2025 12:36 AM [facility] AST (SGOT) 19 1 - 32 U/L 01/18/2025 12:36 AM [facility] Alkaline Phosphatase 100 39 - 117 U/L 01/18/2025 12:36 AM [facility] Total Bilirubin 0.3 0.0 - 1.2 mg/dL 01/18/2025 12:36 AM [facility] Globulin 2.9 gm/dL 01/18/2025 12:36 AM [facility] Comment:Calculated Result A/G Ratio 1.2 g/dL 01/18/2025 12:36 AM [facility] BUN/Creatinine Ratio 9.3 7.0 - 25.0 01/18/2025 12:36 AM [facility] Anion Gap 14.5 5.0 - 15.0 mmol/L 01/18/2025 12:36 AM [facility] eGFR 138.1 >60.0 mL/min/1.7 3 01/18/2025 12:36 AM EDT [facility] Blood Venipuncture / Unknown 01/17/2025 11:50 PM EDT 01/18/2025 12:02 AM EDT Narrative [facility] - 01/18/2025 12:36 AM EDT GFR Categories in Chronic Kidney Disease (CKD) GFR Category GFR (mL/min/1.73) Interpretation G1 90 or greater Normal or high (1) G2 60-89 Mild decrease (1) G3a 45-59 Mild to moderate decrease G3b 30-44 Moderate to severe decrease G4 15-29 Severe decrease G5 14 or less Kidney failure (1)In the absence of evidence of kidney disease, neither GFR category G1 or G2 fulfill the criteria for CKD. eGFR calculation 2020 CKD-EPI creatinine equation, which does not include race as a factor us Zeb Gonzalez MD LAB BLOOD ORDERABLES Final Resu lt Performing Organization Address City/[facility]/ZIP Co de Phone Number [facility]
[address] [place] [address], [place] [phone] * Uric Acid (01/17/2025 11:50 PM EDT) Uric Acid 4.6 2.4 - 5.7 mg/dL 01/18/2025 12:32 AM EDT [facility] Comment:Falsely depressed re sults may occur on samples drawn from patients receiving N-Acetylcysteine (NAC) or Metamizole. Blood Venipuncture / Unknown 01/17/2025 11:50 PM EDT 01/18/2025 12:02 AM EDT us Zeb Gonzalez MD LAB BLOOD ORDERABLES Final Resu lt [facility]
[address] [place] [address], [place] [phone] * Lactate Dehydrogenase (01/17/2025 11:50 PM EDT) Pathologist [facility] LDH 210 135 - 214 U/L 01/18/2025 12:37 AM EDT [facility] Comment:Specimen hemolyzed. Results may be affected. Blood Venipuncture / Unknown 01/17/2025 11:50 PM EDT 01/18/2025 12:02 AM EDT us Zeb Gonzalez MD LAB BLOOD ORDERABLES Final Resu lt [facility]
[address] [place] [address], * Type & Screen (01/17/2025 11:50 PM EDT) Pathologist [facility] ABO Type O 01/18/2025 1:10 AM EDT [facility] RH type Positive 01/18/2025 1:10 AM EDT [facility] Antibody Screen Negative 01/18/2025 1:10 AM EDT [facility] T&S Expiration Date 01/20/2025 11:59:59 PM 01/18/2025 1:10 AM EDT [facility] Blood Venipuncture / Unknown 01/17/2025 11:50 PM EDT 01/18/2025 12:30 AM EDT us Zeb Gonzalez MD BLOOD BANK TEST ORDERABLES Edit ed Result - Final [facility]
[address] [place] [address], * Treponema pallidum AB w/Reflex RPR (01/17/2025 11:50 PM EDT) Pathologist [facility] Treponemal AB Total Non-Reacti ve Non-React chip 01/18/2025 12:27 PM EDT [facility] Blood Venipuncture / Unknown 01/17/2025 11:50 PM EDT 01/18/2025 12:02 AM EDT Narrative [facility] - 01/18/2025 12:27 PM EDT Reactive results will reflex RPR testing. eZb Gonzalez MD LAB BLOOD ORDERABLES Final Resu lt [facility]
[address] [place] [address], * (ABNORMAL) CBC (No Diff) (01/17/2025 11:50 PM EDT) WBC 11.12(H) 3.40 - 10.80 10*3/mm3 01/18/2025 12:04 AM EDT [facility] RBC 3.83 3.77 - 5.28 10*6/mm3 01/18/2025 12:04 AM EDT [facility] Hemoglobin 11.8(L) 12.0 - 15.9 g/dL 01/18/2025 12:04 AM EDT [facility] Hematocrit 33.6(L) 34.0 - 46.6 % 01/18/2025 12:04 AM EDT [facility] MCV 87.7 79.0 - 97.0 fL 01/18/2025 12:04 AM EDT [facility] MCH 30.8 26.6 - 33.0 pg 01/18/2025 12:04 AM EDT [facility] MCHC 35.1 31.5 - 35.7 g/dL 01/18/2025 12:04 AM EDT [facility] RDW 12.9 12.3 - 15.4 % 01/18/2025 12:04 AM EDT [facility] RDW-SD 41.0 37.0 - 54.0 fl 01/18/2025 12:04 AM EDT [facility] MPV 10.0 6.0 - 12.0 fL 01/18/2025 12:04 AM EDT [facility] Platelets 274 140 - 450 10*3/mm3 01/18/2025 12:04 AM EDT [facility] Blood Venipuncture / Unknown 01/17/2025 11:50 PM EDT 01/18/2025 12:01 AM EDT Zeb Gonzalez MD LAB BLOOD ORDERABLES Final Resu lt [facility]
[address] [place] [address], * LABS SCANNED (01/17/2025) [facility] LAB BLOOD ORDERABLES Final Re sult * Telemetry Scan (01/17/2025) [facility] Onbase ECG ORDERABLES Final Result documented in this encounter Visit Diagnoses Diagnosis Chronic hypertension complicating or reason for care during , third trimester- Primary documented in this encounter Admitting Diagnoses Diagnosis Chronic hypertension complicating or reason for care during , third trimester documented in this encounter Administered Medications Inactive Administered Medications - up to 3 most recent administrations Medication Order MAR Action Action Date Dose Rate Site acetaminophen (TYLENOL) tablet 650 mg 650 mg, Oral, Every 4 Hours PRN, Mild Pain, Headache, Starting on Mon01/17/25 at 2321, If given for fever, use fever parameter: fever greater than 100.4 F Based on patient request - if ordered for moderate or severe pain, provider allows for administration of a medication prescribed for a lower pain scale. Do not exceed 4 grams of acetaminophen in a 24 hr period. Max dose of 2gm for AST/ALT greater than 120 units/L. If given for pain, use the following pain scale: Mild Pain = Pain Score of 1-3, CPOT 1-2 Moderate Pain = Pain Score of 4-6, CPOT 3-4 Severe Pain = Pain Score of 7-10, CPOT 5-8 Given 01/20/2025 5:36 AM EDT 650 mg Given 01/18/2025 5:28 PM EDT 650 mg Given 01/18/2025 5:45 AM EDT 650 mg aspirin chewable tablet 81 mg 81 mg, Oral, 2 Times Daily, First dose on 01/18/25 at 0015, Herbal/drug interaction: Avoid use with ginkgo biloba. Based on patient request - if ordered for moderate or severe pain, provider allows for administration of a medication prescribed for a lower pain scale. Do not exceed 4 grams of aspirin in a 24 hr period. If given for pain, use the following pain scale: Mild Pain = Pain Score of 1-3, CPOT 1-2 Moderate Pain = Pain Score of 4-6, CPOT 3-4 Severe Pain = Pain Score of 7-10, CPOT 5-8 Given 01/20/2025 8:16 AM EDT 81 mg Given 01/19/2025 8:05 PM EDT 81 mg Given 01/19/2025 8:15 AM EDT 81 mg wdixgfkotx-btkraestnidfy-aidpdtre (FIORICET, ESGIC) 50-325-40 MG per tablet 2 tablet 2 tablet, Oral, Once, On 01/19/25 at 0800, For 1 dose, Do not exceed 4g of acetaminophen in a 24 hour period. Maximum 6 tablets per 24 hours. Max dose of 2gm for AST/ALT greater than 120 units/L Given 01/19/2025 7:20 AM EDT 2 tablets dextrose 5 % and sodium chloride 0.2 % infusion 100 mL/hr, Intravenous, Continuous, Starting on 01/18/25 at 0015, For 2 days New Bag 01/18/2025 3:31 PM EDT 100 mL/hr 100 mL/hr New Bag 01/17/2025 11:56 PM EDT 100 mL/hr 100 mL/hr labetalol (NORMODYNE) tablet 200 mg 200 mg, Oral, 3 Times Daily, First dose on 01/18/25 at 0100, Hold for SBP less than 100, DBP less than 60, or heart rate less than 50. If a dose is held, please contact the provider. Given 01/20/2025 8:16 AM EDT 200 mg Given 01/19/2025 8:05 PM EDT 200 mg Given 01/19/2025 3:34 PM EDT 200 mg magnesium sulfate 20 GM/500ML infusion 2 g/hr (50 mL/hr), Intravenous, Continuous, Starting on 01/18/25 at 0015, For 7 days New Bag 01/18/2025 8:27 AM EDT 2 g/hr 50 mL/hr New Bag 01/17/2025 11:47 PM EDT 2 g/hr 50 mL/hr NIFEdipine XL (PROCARDIA XL) 24 hr tablet 30 mg 30 mg, Oral, Daily, First dose on 01/18/25 at 0900, Caution: Look alike/sound alike drug alert. Avoid grapefruit juice. Swallow whole. Do not crush, split or chew. Given 01/20/2025 8:16 AM EDT 30 mg Given 01/19/2025 9:47 AM EDT 30 mg Given 01/18/2025 8:27 AM EDT 30 mg ondansetron (ZOFRAN) injection 4 mg 4 mg, Intravenous, Every 8 Hours PRN, Nausea, Vomiting, Starting on Mon01/17/25 at 2321, If BOTH ondansetron (ZOFRAN) and promethazine (PHENERGAN) are ordered use ondansetron first and THEN promethazine IF ondansetron is ineffective. If both oral and IV ordered, offer oral first, unless NPO. ondansetron ODT (ZOFRAN-ODT) disintegrating tablet 8 mg 8 mg, Oral, Every 8 Hours PRN, Nausea, Vomiting, Starting on Mon01/17/25 at 2321, If BOTH ondansetron (ZOFRAN) and promethazine (PHENERGAN) are ordered use ondansetron first and THEN promethazine IF ondansetron is ineffective. If both oral and IV ordered, offer oral first, unless NPO. Place on tongue and allow to dissolve. sodium chloride 0.9 % flush 10 mL 10 mL, Intravenous, Every 12 Hours Scheduled, First dose on 01/18/25 at 0015 Given 01/19/2025 8:05 PM EDT 10 mL Given 01/19/2025 9:47 AM EDT 10 mL documented in this encounter Active and Recently Administered Medications Times are shown in EDT. Scheduled Medication Order 01/18/2025 01/19/2025 01/20/2025 aspirin chewable tablet 81 mg 81 mg, Oral, 2 Times Daily, First dose on 01/18/25 at 0015, Herbal/drug interaction: Avoid use with ginkgo biloba. Based on patient request - if ordered for moderate or severe pain, provider allows for administration of a medication prescribed for a lower pain scale. Do not exceed 4 grams of aspirin in a 24 hr period. If given for pain, use the following pain scale: Mild Pain = Pain Score of 1-3, CPOT 1-2 Moderate Pain = Pain Score of 4-6, CPOT 3-4 Severe Pain = Pain Score of 7-10, CPOT 5-8 0011 (Given - Provider: Atiya Hicks RN)826 (Given - Provider: Flakito Tineo RN)2117 (Given - Provider: Lana Ruiz, GREGG) 814 (Given - Provider: Pepito Schmitz, GREGG)2004 (Given - Provider: Felecia Wiseman, RN) 815 (Given - Provider: Flakito Tineo RN) butalbital-acetaminophen- caffeine (FIORICET, ESGIC) 50-325-40 MG per tablet 2 tablet (COMPLETED) 2 tablet, Oral, Once, On 01/19/25 at 0800, For 1 dose, Do not exceed 4g of acetaminophen in a 24 hour period. Maximum 6 tablets per 24 hours. Max dose of 2gm for AST/ALT greater than 120 units/L 0720 (Given - Provider: Pepito Schmitz, GREGG) labetalol (NORMODYNE) tablet 200 mg 200 mg, Oral, 3 Times Daily, First dose on 01/18/25 at 0100, Hold for SBP less than 100, DBP less than 60, or heart rate less than 50. If a dose is held, please contact the provider. 0011 (Given - Provider: Atiya Hicks RN)08 (Given - Provider: Flakito Tineo RN)1530 (Given - Provider: Flakito Tineo RN)2117 (Given - Provider: Lana Ruiz, GREGG) 814 (Given - Provider: Pepito Schmitz, GREGG)153 (Given - Provider: Pepito Schmitz, GREGG)2004 (Given - Provider: Felecia Wiseman, GREGG) 08 (Given - Provider: Flakito Tineo RN) NIFEdipine XL (PROCARDIA XL) 24 hr tablet 30 mg 30 mg, Oral, Daily, First dose on 01/18/25 at 0900, Caution: Look alike/sound alike drug alert. Avoid grapefruit juice. Swallow whole. Do not crush, split or chew. 0827 (Given - Provider: Flakito Tineo RN) 0947 (Given - Provider: Pepito Schmitz, RN) 0816 (Given - Provider: Flakito Tineo RN) sodium chloride 0.9 % flush 10 mL 10 mL, Intravenous, Every 12 Hours Scheduled, First dose on 01/18/25 at 0015 0015 (Due)0900 (Due)2100 (Due) 0947 (Given - Provider: Pepito Schmitz, GREGG)2004 (Given - Provider: Felecia Wiseman RN) 0900 (Due) Continuous Medication Order 01/18/2025 01/19/2025 01/20/2025 dextrose 5 % and sodium chloride 0.2 % infusion () 100 mL/hr, Intravenous, Continuous, Starting on 01/18/25 at 0015, For 2 days 1531 (New Bag - Provider: Flakito Tineo RN)2301 (Stopped - Provider: Lana Ruiz, GREGG) magnesium sulfate 20 GM/500ML infusion 2 g/hr (50 mL/hr), Intravenous, Continuous, Starting on 01/18/25 at 0015, For 7 days 0015 (Due)0827 (New Bag - Provider: Flakito Tineo RN)2117 (Due)2302 (Stopped - Provider: Lana Ruiz, RN) PRN Medication Order 01/18/2025 01/19/2025 01/20/2025 acetaminophen (TYLENOL) tablet 650 mg 650 mg, Oral, Every 4 Hours PRN, Mild Pain, Headache, Starting on Mon01/17/25 at 2321, If given for fever, use fever parameter: fever greater than 100.4 F Based on patient request - if ordered for moderate or severe pain, provider allows for administration of a medication prescribed for a lower pain scale. Do not exceed 4 grams of acetaminophen in a 24 hr period. Max dose of 2gm for AST/ALT greater than 120 units/L. If given for pain, use the following pain scale: Mild Pain = Pain Score of 1-3, CPOT 1-2 Moderate Pain = Pain Score of 4-6, CPOT 3-4 Severe Pain = Pain Score of 7-10, CPOT 5-8 0545 (Given - Provider: Atiya Hicks, GREGG)1721 (Given - Provider: Flakito Tineo RN) 0536 (Given - Provider: Felecia Wiseman RN) albuterol (PROVENTIL) nebulizer solution 0.083% 2.5 mg/3mL 2.5 mg, Nebulization, Every 2 Hours PRN, Shortness of Air, Starting on Mon01/17/25 at 2320 bisacodyl (DULCOLAX) suppository 10 mg 10 mg, Rectal, Daily PRN, Constipation, Starting on Mon01/17/25 at 2321, Hold for diarrhea docusate sodium (COLACE) capsule 100 mg 100 mg, Oral, 2 Times Daily PRN, Constipation, constipation, Starting on Mon01/17/25 at 2321, Swallow whole. Do not open, crush, or chew capsule. lidocaine PF 1% (XYLOCAINE) injection 0.5 mL 0.5 mL, Intradermal, Once As Needed, IV Start, Starting on Mon01/17/25 at 2321, For 1 dose ondansetron (ZOFRAN) injection 4 mg(Linked Group 1) 4 mg, Intravenous, Every 8 Hours PRN, Nausea, Vomiting, Starting on Mon01/17/25 at 2321, If BOTH ondansetron (ZOFRAN) and promethazine (PHENERGAN) are ordered use ondansetron first and THEN promethazine IF ondansetron is ineffective. If both oral and IV ordered, offer oral first, unless NPO. ondansetron ODT (ZOFRAN-ODT) disintegrating tablet 8 mg(Linked Group 1) 8 mg, Oral, Every 8 Hours PRN, Nausea, Vomiting, Starting on Mon01/17/25 at 2321, If BOTH ondansetron (ZOFRAN) and promethazine (PHENERGAN) are ordered use ondansetron first and THEN promethazine IF ondansetron is ineffective. If both oral and IV ordered, offer oral first, unless NPO. Place on tongue and allow to dissolve. sodium chloride 0.9 % flush 10 mL 10 mL, Intravenous, As Needed, Line Care, Starting on Mon01/17/25 at 2321 sodium chloride 0.9 % infusion 40 mL 40 mL, Intravenous, at 100 mL/hr, As Needed, Line Care, Starting on Mon01/17/25 at 2321, Following administration of an IV intermittent medication, flush line with 40mL NS at 100mL/hr. Linked Groups Order Group 1: ondansetron ODT (ZOFRAN-ODT) disintegrating tablet 8 mgJump to med 8 mg, Oral, Every 8 Hours PRN, Nausea, Vomiting, Starting on Mon01/17/25 at 2321, If BOTH ondansetron (ZOFRAN) and promethazine (PHENERGAN) are ordered use ondansetron first and THEN promethazine IF ondansetron is ineffective. If both oral and IV ordered, offer oral first, unless NPO. Place on tongue and allow to dissolve. Or ondansetron (ZOFRAN) injection 4 mgJump to med 4 mg, Intravenous, Every 8 Hours PRN, Nausea, Vomiting, Starting on Mon01/17/25 at 2321, If BOTH ondansetron (ZOFRAN) and promethazine (PHENERGAN) are ordered use ondansetron first and THEN promethazine IF ondansetron is ineffective. If both oral and IV ordered, offer oral first, unless NPO. documented in this encounter Care Teams Associate Director Qa Relationship Specialty Start Date End Date Destiny Seymour PA [address] [place] [address] [place] [address] [facility] [address] PCP - General Physician Card Painter 09/14/22 documented as of this encounter
--- OUTSIDE RECORDS SUMMARY | 2025-01-17 22:36 | XMS_ITS | Encounter Summary ---
Author Organization [facility] Address [address] [place] [id number] Care Team Providers Care Wire Stripping Machine Operator Name Role Phone Destiny Seymour Primary Care Provider [phone] Reason for Visit * Reason Comments Elevated [...] - 01/20/2025 12:12 PM EDT Hospital Encounter [facility] [address] [place] [address] Zeb Gonzalez MD [address] [facility] [address] [place] [address] Discharge Disposition: Home or Self Care 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 Tobacco Use Types Packs/Day Years Used Date Smoking Tobacco: Never Passive Smoke Exposure: Past Smokeless Tobacco: Never Alcohol Use Standard Drinks/Week Comments Not Currently 2 (1 standard drink = 0.6 oz pur e alcohol) socially C Utilities Answer Date Recorded In the past 12 months has [employer], gas, oil, or water company threatened to [...] and heating? Not hard at all 01/17/2025 [facility] - Occupational Stress Questionnaire Answer Date [...] GED or equivalent No 01/17/2025 Preferred Language Egyptian 01/17/2025 PHQ-2 Answer Date Recorded Patient Health [...] 11:07 PM EDT Atiya Gordon RN * Lynn Suicide Severity Rating Scale (Screener/Recent Self-Report) Question [...] tablet Commonly known as: ADALAT CC nystatin 751639 UNIT/GM powder Commonly known as: MYCOSTATIN Disposition:Home or Self Care Follow up: She will have an-other NST later this week and is scheduled for an induction on 01/28 Neymar Winters MD documented in this encounter Discharge Instructions * Attachments The following attachments cannot be sent through Care Everywhere. * High Blood Pressure During (Egyptian) documented in this encounter Medications at Time [...] 01/19/2025 7:25 AM EDT Fili Mercado Kenji [id number] 2000 Referring physician: Oliverio Amanda MD Chief [...] - 01/18/2025 7:18 AM EDT Fili Rosen [id number] 2000 Referring physician: Oliverio Amanda MD Chief [...] 01/17/2025 11:00 PM EDT Fili Rosen 2000 [id number] Referring physician: Oliverio Amanda MD CC: chron HTN with superimposed preeclampsia HPI: Patient is 24 y.o. female currently at 35w5d presented to [facility] for c/o headache andelevated BP at home. Pt had several severe range pressures there and received a 20mg and 40mg dose of IV labetalol prior to transfer. Pt was started on magnesium (4g/2g) and transferred here for care. PNC comp by chron HTN on labetalol 200mg tid and procardia 30XL/d and asthma. SCANLON was initially 7-8 and is now 08/12. Labs at [place] were all normal. PMH: Current meds: albuterol [...] not taking: Reported on 12/12/2024) nystatin (MYCOSTATIN) 897277 UNIT/GM powder As Needed. ALLERGIES Erythromycin SOCIAL [...] which greater than 50% was spent in vhoe-ni-umzh consultation and coordination of care. Akanksha Moore [...] Procedure Name Priority Date/Time Associated Diagnosis Comments [facility] STAT 01/20/2025 10:43 AM [...] METABOLIC PANEL Routine 01/17/2025 11:50 PM EDT documented in this encounter Results * [facility] (01/20/2025 10:43 AM EDT) Anatomical Region Laterality Modality Ultrasound 01/20/2025 10:4 2 AM EDT Narrative 01/20/2025 11:40 AM EDT PAT NAME: FILI ROSEN MED REC#: [id number] DA: 2000 PAT GEND: F PAT TYPE: I EXAM MYRON: [id number] REF PHYS PEPITO BUITRAGO Comparison Studies The [...] EFW (oz) 1 oz EFW by: Hadlock ([id number]) Extended Cav. septi pel. tr 5.1 mm Cereal Maker 5.1 mm Head / Face / [...] Normal Heart / Thorax 3-vessel view: Normal 6-tstyqq-njepmml view: normal Stomach: Appears normal Kidneys: Appears [...] Recommend delivery at 37wks. Coding ====== Description: 52541-50 Follow Up Ultrasound Description: 35792-99 BPP without NST Description: 81261-67 Doppler Umbilical Artery President & Ceo: Delmy Xiong RDMS Physician: Akanksha Moore MD Electronically signed by: Akanksha Moore MD at: 11:27 Procedure Note Akanksha Moore MD - 01/21/2025 PAT NAME: FILI ROSEN MED REC#: [id number] DA: 2000 PAT GEND: F PAT TYPE: I EXAM MYRON: [id number] REF PHYS PEPITO BUITRAGO Comparison Studies The findings of this study are compared to the prior ultrasound studydated 12/12/24 Patient Status Inpatient Indication ======== CHTN. Rheumatoid arthritis. Maternal chiari malformation. Hx SVT withablation 2022. Vapes. Obesity BMI 34. Maternal Assessment Whsqfn864 cm Tzccsz79 kg Weight (lb)211 lb BMI34.32 kg/m Method ======= Transabdominal ultrasound examination. View: Adequate view ========= Beltran . Number of fetuses: 1 Dating ====== Method of dating:based on stated TIFFANY GA by prior w + 1 d TIFFANY by prior assessment:02/16/2025 Ultrasound examination on:01/20/2025 GA by U/S based upon:AC, BPD, Femur, HC GA by U/S36 w + 1 d TIFFANY by U/S:02/16/2025 Previous dating:based on stated TIFFANY, selected on 12/12/2024 Agreed TIFFANY of previous datin02/16/2025 Assigned:based on stated TIFFANY, selected on 01/20/2025 Assigned GA36 w + 1 d Assigned TIFFANY:02/16/2025 [id number] d Biometry Standard BPD89.1 mm 36w 0d 57% Hadlock HED734.1 mm 38w 4d 81% Ermelinda HC330.1 mm 37w 4d 55% Hadlock AC312.4 mm 35w 1d 32% Hadlock Femur70.2 mm 36w 0d 42% Hadlock HC / AC1.06 EFW2,755 g 35w 5d 41% Hadlock EFW (lb)6 lb EFW (oz)1 oz EFW by:Hadlock ([id number]) Extended Cav. septi pel. tr5.1 mm Vp5.1 mm Head / Face / Neck Cephalic index0.79 23% Nicolaides Extremities / Bony Struc FL / BPD0.79 FL / HC0.21 FL / AC0.22 Other Structures JIT284 bpm General Evaluation Cardiac activity present. FHR [...] LVOT view:Normal Heart / Thorax 3-vessel view:Normal 9-qseuwk-lxugwam view:normal Stomach:Appears normal Kidneys:Appears normal Bladder:Appears normal [...] labs. Recommend delivery at 37wks. Coding ====== Description:99147-94 Follow Up Ultrasound Description:15384-79 BPP without NST Description:79923-59 Doppler Umbilical Artery President & Ceo: Delmy Xiong RDMS Physician: Akanksha Moore MD Electronically signed by: Akanksha Moore MD at: 11:27 us Neymar Winters MD [facility] [place] ORDERABLES Edited Resul t - Final * Preeclampsia Panel (01/19/2025 9:10 AM EDT) Alkaline Phosphatase 94 39 - 117 U/L 01/19/2025 10:11 AM EDT [facility] ALT (SGPT) 8 1 - 33 U/L 01/19/2025 10:11 AM EDT [facility] AST (SGOT) 11 1 - 32 U/L 01/19/2025 10:11 AM EDT [facility] Creatinine 0.58 0.57 - 1.00 mg/dL 01/19/2025 10:11 AM EDT [facility] Total Bilirubin 0.2 0.0 - 1.2 mg/dL 01/19/2025 10:11 AM EDT [facility] LDH 148 135 - 214 U/L 01/19/2025 10:11 AM EDT [facility] Uric Acid 5.2 2.4 - 5.7 mg/dL 01/19/2025 10:11 AM EDT [facility] Blood Venipuncture / Unknown 01/19/2025 9:10 AM EDT 01/19/2025 9:39 AM EDT Jeffery Cruz DO LAB BLOOD ORDERABLES Final Result [facility]
[address] [place] [address], * (ABNORMAL) CBC (No Diff) (01/19/2025 9:10 AM EDT) WBC 7.71 3.40 - 10.80 10*3/mm3 01/19/2025 10:10 AM EDT [facility] RBC 3.25(L) 3.77 - 5.28 10*6/mm3 01/19/2025 10:10 AM EDT [facility] Hemoglobin 9.8(L) 12.0 - 15.9 g/dL 01/19/2025 10:10 AM EDT [facility] Hematocrit 29.5(L) 34.0 - 46.6 % 01/19/2025 10:10 AM EDT [facility] MCV 90.8 79.0 - 97.0 fL 01/19/2025 10:10 AM EDT [facility] MCH 30.2 26.6 - 33.0 pg 01/19/2025 10:10 AM EDT [facility] MCHC 33.2 31.5 - 35.7 g/dL 01/19/2025 10:10 AM EDT [facility] RDW 13.2 12.3 - 15.4 % 01/19/2025 10:10 AM EDT [facility] RDW-SD 43.2 37.0 - 54.0 fl 01/19/2025 10:10 AM EDT [facility] MPV 10.0 6.0 - 12.0 fL 01/19/2025 10:10 AM EDT [facility] Platelets 216 140 - 450 10*3/mm3 01/19/2025 10:10 AM EDT [facility] Blood Venipuncture / Unknown 01/19/2025 9:10 AM EDT 01/19/2025 9:39 AM EDT Jeffery Cruz DO LAB BLOOD ORDERABLES Final Result [facility]
[address] [place] [address], * (ABNORMAL) Protein, Urine, 24 Hour - Urine, Clean Catch (01/19/2025 7:36 AM EDT) Protein, 24H Urine 262.2(H) 0.0 - 150.0 mg/24hours 01/19/2025 8:10 AM EDT [facility] 24H Urine Volume 5,350 mL 01/19/2025 8:10 AM EDT [facility] Time (Hours) 24 hrs 01/19/2025 8:10 AM EDT [facility] 24 Hour Urine Urine specimen obtained by clean catch procedure / Unknown 01/19/2025 7:36 AM EDT 01/19/2025 7:36 AM EDT Narrative [facility] - 01/19/2025 8:10 AM EDT Reference ranges are based on a 24 hour period, interperet results accordingly. us Zeb Gonzalez MD URINE ORDERABLES Final Result Performing Organization Address [facility] Co de Phone Number [facility]
[address] [place] [address], [place] [phone] * ABO RH Specimen Verification (01/18/2025 1:33 AM EDT) ABO Type O 01/18/2025 1:42 PM EDT [facility] RH type Positive 01/18/2025 1:42 PM EDT [facility] Blood Venipuncture / Unknown 01/18/2025 1:33 AM EDT 01/18/2025 1:45 AM EDT us Zeb Gonzalez MD BLOOD BANK TEST ORDERABLES Sintia l Result Performing Organization Address [facility] de Phone Number [facility]
[address] [place] [address], [place] [phone] * (ABNORMAL) Comprehensive Metabolic Panel (01/17/2025 11:50 PM EDT) Glucose 81 65 - 99 mg/dL 01/18/2025 12:36 AM EDT [facility] BUN 4.3(L) 6.0 - 20.0 mg/dL 01/18/2025 12:36 AM EDT [facility] Creatinine 0.46(L) 0.57 - 1.00 mg/dL 01/18/2025 12:36 AM EDT [facility] Sodium 137 136 - 145 mmol/L 01/18/2025 12:36 AM [facility] Potassium 4.0 3.5 - 5.2 mmol/L 01/18/2025 12:36 AM [facility] Comment:Specimen hemolyzed. Result may be falsely elevated. Chloride 105 98 - 107 mmol/L 01/18/2025 12:36 AM [facility] CO2 17.5(L) 22.0 - 29.0 mmol/L 01/18/2025 12:36 AM [facility] Calcium 8.3(L) 8.6 - 10.5 mg/dL 01/18/2025 12:36 AM [facility] Total Protein 6.5 6.0 - 8.5 g/dL 01/18/2025 12:36 AM [facility] Albumin 3.6 3.5 - 5.2 g/dL 01/18/2025 12:36 AM [facility] ALT (SGPT) 10 1 - 33 U/L 01/18/2025 12:36 AM [facility] AST (SGOT) 19 1 - 32 U/L 01/18/2025 12:36 AM [facility] Alkaline Phosphatase 100 39 - 117 U/L 01/18/2025 12:36 AM [facility] Total Bilirubin 0.3 0.0 - 1.2 mg/dL 01/18/2025 12:36 AM [facility] Globulin 2.9 gm/dL 01/18/2025 12:36 AM [facility] Comment:Calculated Result A/G Ratio 1.2 g/dL 01/18/2025 12:36 AM [facility] BUN/Creatinine Ratio 9.3 7.0 - 25.0 01/18/2025 12:36 AM [facility] Anion Gap 14.5 5.0 - 15.0 mmol/L 01/18/2025 12:36 AM [facility] eGFR 138.1 >60.0 mL/min/1.7 3 01/18/2025 12:36 AM EDT [facility] Blood Venipuncture / Unknown 01/17/2025 11:50 PM EDT 01/18/2025 12:02 AM EDT Narrative [facility] - 01/18/2025 12:36 AM EDT [...] ORDERABLES Final Resu lt Performing Organization Address City/[facility]/ZIP Co de Phone Number [facility]
[address] [place] [address], [place] [phone] * Uric Acid (01/17/2025 11:50 PM EDT) Uric Acid 4.6 2.4 - 5.7 mg/dL 01/18/2025 12:32 AM EDT [facility] Comment:Falsely depressed re sults may occur on samples drawn from patients receiving N-Acetylcysteine (NAC) or Metamizole. Blood Venipuncture / Unknown 01/17/2025 11:50 PM EDT 01/18/2025 12:02 AM EDT us Zeb Gonzalez MD LAB BLOOD ORDERABLES Final Resu lt Performing Organization Address City/[facility]/ZIP Co de Phone Number [facility]
[address] [place] [address], [place] [phone] * Lactate Dehydrogenase (01/17/2025 11:50 PM EDT) LDH 210 135 - 214 U/L 01/18/2025 12:37 AM EDT [facility] Comment:Specimen hemolyzed. Results may be affected. Blood Venipuncture / Unknown 01/17/2025 11:50 PM EDT 01/18/2025 12:02 AM EDT us Zeb Gonzalez MD LAB BLOOD ORDERABLES Final Resu lt Performing Organization Address City/[facility]/ZIP Co de Phone Number [facility]
[address] [place] [address], [place] [phone] * Type & Screen (01/17/2025 11:50 PM EDT) ABO Type O 01/18/2025 1:10 AM EDT [facility] RH type Positive 01/18/2025 1:10 AM EDT [facility] Antibody Screen Negative 01/18/2025 1:10 AM EDT [facility] T&S Expiration Date 01/20/2025 11:59:59 PM 01/18/2025 1:10 AM EDT [facility] Blood Venipuncture / Unknown 01/17/2025 11:50 PM EDT 01/18/2025 12:30 AM EDT us Zeb Gonzalez MD BLOOD BANK TEST ORDERABLES Edit ed Result - Final Performing Organization Address City/[facility]/ZIP Co de Phone Number [facility]
[address] [place] [address], [place] [phone] * Treponema pallidum AB w/Reflex RPR (01/17/2025 11:50 PM EDT) Treponemal AB Total Non-Reacti ve Non-React chip 01/18/2025 12:27 PM EDT [facility] Blood Venipuncture / Unknown 01/17/2025 11:50 PM EDT 01/18/2025 12:02 AM EDT Narrative [facility] - 01/18/2025 12:27 PM EDT Reactive results will reflex RPR testing. Zeb Gonzalez MD LAB BLOOD ORDERABLES Final Resu lt [facility]
[address] [place] [address], * (ABNORMAL) CBC (No Diff) (01/17/2025 11:50 PM EDT) WBC 11.12(H) 3.40 - 10.80 10*3/mm3 01/18/2025 12:04 AM EDT [facility] RBC 3.83 3.77 - 5.28 10*6/mm3 01/18/2025 12:04 AM EDT [facility] Hemoglobin 11.8(L) 12.0 - 15.9 g/dL 01/18/2025 12:04 AM EDT [facility] Hematocrit 33.6(L) 34.0 - 46.6 % 01/18/2025 12:04 AM EDT [facility] MCV 87.7 79.0 - 97.0 fL 01/18/2025 12:04 AM EDT [facility] MCH 30.8 26.6 - 33.0 pg 01/18/2025 12:04 AM EDT [facility] MCHC 35.1 31.5 - 35.7 g/dL 01/18/2025 12:04 AM EDT [facility] RDW 12.9 12.3 - 15.4 % 01/18/2025 12:04 AM EDT [facility] RDW-SD 41.0 37.0 - 54.0 fl 01/18/2025 12:04 AM EDT [facility] MPV 10.0 6.0 - 12.0 fL 01/18/2025 12:04 AM EDT [facility] Platelets 274 140 - 450 10*3/mm3 01/18/2025 12:04 AM EDT [facility] Blood Venipuncture / Unknown 01/17/2025 11:50 PM EDT 01/18/2025 12:01 AM EDT Zeb Gonzalez MD LAB BLOOD ORDERABLES Final Resu lt [facility]
[address] [place] [address], documented in this encounter Visit Diagnoses Diagnosis [...] Given 01/19/2025 8:15 AM EDT 81 mg pgiapbbtcw-easrucundaznr-tqrdjtdw (FIORICET, ESGIC) 50-325-40 MG per tablet 2 [...] 7-10, CPOT 5-8 0011 (Given - Provider: Atyia Hicks, RN)0827 (Given - Provider: Flakito Tineo RN)8 (Given - Provider: Lana Ruiz, RN) 0815 (Given - Provider: Pepito Schmitz, GREGG)2004 (Given - Provider: Felecia Wiseman, RN) 0816 (Given - Provider: Flakito Tineo RN) butalbital-acetaminophen- caffeine (FIORICET, ESGIC) 50-325-40 MG per tablet 2 tablet (COMPLETED) 2 tablet, Oral, Once, On 01/19/25 at 0800, For 1 dose, Do not exceed 4g of acetaminophen in a 24 hour period. Maximum 6 tablets per 24 hours. Max dose of 2gm for AST/ALT greater than 120 units/L 0720 (Given - Provider: Pepito Schmitz RN) labetalol (NORMODYNE) tablet 200 mg 200 mg, Oral, 3 Times Daily, First dose on 01/18/25 at 0100, Hold for SBP less than 100, DBP less than 60, or heart rate less than 50. If a dose is held, please contact the provider. 001 (Given - Provider: Atiya Hicks, GREGG)08 (Given - Provider: Flakito Tineo RN)153 (Given - Provider: Flakito Tineo RN)2117 (Given - Provider: Lana Ruiz, GREGG) 08 (Given - Provider: Pepito Schmitz, GREGG)153 (Given - Provider: Pepito Schmitz, GREGG)2004 (Given - Provider: Felecia Wiseman, GREGG) 0816 (Given - Provider: Flakito Tineo RN) NIFEdipine XL (PROCARDIA XL) 24 hr tablet 30 mg 30 mg, Oral, Daily, First dose on 01/18/25 at 0900, Caution: Look alike/sound alike drug alert. Avoid grapefruit juice. Swallow whole. Do not crush, split or chew. 08 (Given - Provider: Flakito Tineo RN) 0947 (Given - Provider: Pepito Schmitz, RN) 0816 (Given - Provider: Flakito Tineo RN) sodium chloride 0.9 % flush 10 mL 10 mL, Intravenous, Every 12 Hours Scheduled, First dose on 01/18/25 at 0015 0015 (Due)0900 (Due)2100 (Due) 0947 (Given - Provider: Pepito Schmitz RN)2004 (Given - Provider: Felecia Wiseman, RN) 0900 (Due) Continuous Medication Order 01/18/2025 01/19/2025 01/20/2025 dextrose 5 % and sodium chloride 0.2 % infusion () 100 mL/hr, Intravenous, Continuous, Starting on 01/18/25 at 0015, For 2 days 1531 (New Bag - Provider: Flakito Tineo RN)2301 (Stopped - Provider: Lana Ruiz, RN) magnesium sulfate 20 GM/500ML infusion 2 g/hr (50 mL/hr), Intravenous, Continuous, Starting on 01/18/25 at 0015, For 7 days 0015 (Due)0827 (New Bag - Provider: Flakito Tineo RN)2117 (Due)2302 (Stopped - Provider: Lana Ruiz, GREGG) PRN Medication Order 01/18/2025 01/19/2025 01/20/2025 acetaminophen [...] CPOT 5-8 0545 (Given - Provider: Atiya Hicks RN)1728 (Given - Provider: Flakito Tineo RN) 0536 (Given - Provider: Felecia Wiseman, GREGG) albuterol (PROVENTIL) nebulizer solution 0.083% 2.5 mg/3mL [...] Needed, Line Care, Starting on Mon01/17/25 at 232, Following administration of an IV intermittent medication, [...] NPO. documented in this encounter Care Teams Wire Stripping Machine Operator Relationship Specialty Start Date End Date Destiny Seymour PA [address] [place] [address] [facility] [place] [address] [place] [address] PCP - General Physician Ruby On Rails Engineer 09/14/22 documented as of this encounter
[2025-01-20 21:51] VITALS: BP 143/89; PULSE 90
[2025-01-21] VITALS (25 sets, daily range): BP systolic 129–173; BP diastolic 77–111; PULSE 67–94; RESP 16–18; TEMP 36.9–37.1; O2SAT 96–99; BMI 34.0
--- OUTSIDE RECORDS SUMMARY | 2025-01-21 12:51 | XMS_ITS | Encounter Summary ---
Author Organization [facility] Address [address] [place] [address] Care Team Providers Care Daycare Assistant Name Role Phone Destiny Seymour Primary Care Provider [phone] Encounter Details Date Type Department Care Team [...] on filedocumented in this encounter Care Teams Daycare Assistant Relationship Specialty Start Date End Date Destiny Seymour PA [address] [place] [address] [address] PCP - General Physician Fire Crew Specialist 09/14/22 documented as of this encounter
--- OUTSIDE RECORDS SUMMARY | 2025-01-21 12:51 | XMS_ITS | Clinical Summary ---
Author Organization [facility] Address [address] [place] [address] Care Team Providers Care Estimator Paperboard Boxes Name Role Phone Destiny Seymour Primary Care Provider [phone] Allergies Active Allergy Reactions Criticality Noted Date Comments Erythromycin Hives,Rash High 09/14/2022 Medications albuterol sulfate HFA 108 (90 Base) MCG/ACT inhaler Inhale 2 puffs Every 6 (Six) Hours As Needed for Shortness of Air. 11/01/19 25 Active MAGnesium-Oxide 400 (240 Mg) MG tablet Take 1 tablet by mouth Daily. 08/24/19 25 Active ondansetron ODT (ZOFRAN-ODT) [address] 1 tablet on the tongue Every 6 (Six) Hours As Needed. 10/12/19 25 Active vitamin (, CLASSIC, vitamin) tablet Take by mouth Daily. Active ferrous sulfate 324 (65 Fe) MG tablet delayed-release EC tablet Take 1 tablet by mouth Daily With Breakfast. Active aspirin 81 MG chewable tablet Chew 1 tablet 2 (Two) Times a Day. Active labetalol (NORMODYNE) 200 MG tablet Take 1 tablet by mouth 3 (Three) Times a Day. 90 tablet 01/21/20 25 Active bisoprolol (ZEBeta) 5 MG tablet Take 1 tablet by mouth Daily. 2.5mg daily 025 Discontin ued(Stop Taking at Discharge ) labetalol (NORMODYNE) 200 MG tablet Take 1 tablet by mouth Every 12 (Twelve) Hours. 10/19/19 25 025 Discontin ued(Stop Taking at Discharge ) nystatin (MYCOSTATIN) 305342 UNIT/GM powder As Needed. 08/23/19 25 025 Discontin ued(Stop Taking at Discharge ) NIFEdipine CC (ADALAT CC) 30 MG 24 hr tablet Take 1 tablet by mouth Daily. 11/30/19 25 025 Discontin ued(Stop Taking at Discharge ) Active Problems Problem Noted Date Diagnosed Date Chronic hypertension complic ating or reason for care during , third trimester 01/17/2025 Chronic hypertension complic ating or reason for [...] Encounters Date Type Department Care Team Description 01/17/2025 10:36 PM EDT - 01/20/2025 12:12 PM EDT Hospital Encounter [facility] [address] [place] [address] Zeb Gonzalez MD Discharge Disposition: Home or Self Care 01/17/2025 Travel 12/12/2024 1:45 PM EDT Office Visit [facility] [address] [place] [address] John Mendoza MD Chronic hypertension complicating or reason for care during , second trimester (Primary Dx) 12/12/2024 1:26 PM EDT - 12/12/2024 11:59 PM EDT Hospital Encounter [facility] [address] [place] [address] John Mendoza MD Paroxysmal SVT (supraventricular tachycardia); Chronic hypertension complicating or reason for care during , second trimester Discharge Disposition: Home or Self Care 12/12/2024 Travel 11/05/2024 1:30 PM EDT - 11/05/2024 11:59 PM EDT Hospital Encounter [facility] [address] [place] [address] Pepito Smiley, HTN in , chronic; Hx of preeclampsia, prior , currently ; SVT (supraventricular tachycardia); , unspecified gestational age Discharge Disposition: Home or Self Care 11/05/2024 1:30 PM EDT Office Visit [facility] MATERNAL [facility]ICINE [address] [facility] [address] [place] [address] John Mendoza MD Paroxysmal SVT (supraventricular tachycardia) [...] = 0.6 oz pur e alcohol) socially [facility] Utilities Answer Date Recorded In the past 12 months has [employer], gas, oil, or water [employer] threatened to shut off services in your [...] and heating? Not hard at all 01/17/2025 [facility] [place] of Occupat ional Health - Occupational Stress Questionnaire Answer Date Recorded [...] equivalent No 01/17/2025 Preferred Language Citizen Of [place] 01/17/2025 PHQ-2 Answer Date Recorded Patient Health [...] Mass Index 34.06 01/17/2025 11:10 PM EDT Plan of Treatment Health Maintenance [...] Procedure Name Priority Date/Time Associated Diagnosis Comments [facility] STAT 01/20/2025 10:43 AM EDT PRE-ECLAMPSIA PANEL STAT 01/19/2025 9 :10 AM EDT CBC (NO DIFF) STAT 01/19/2025 9:10 AM EDT PROTEIN, URINE, 24 HOUR Routine 01/19/2025 7:36 AM EDT ABORH 2ND SPECIMEN VERIFICATION STAT 01/18/2025 1:33 AM EDT TYPE AND SCREEN Routine 01/17/2025 11:50 PM EDT COMPREHENSIVE METABOLIC PANEL Routine 01/17/2025 11:50 PM EDT URIC ACID Routine 01/17/2025 11:50 PM EDT LACTATE DEHYDROGENASE Routine 01/17/2025 11:50 PM EDT TREPONEMA PALLIDUM AB W/REFLEX RPR Routine 01/17/2025 11:50 PM EDT CBC (NO DIFF) Routine 01/17/2025 11:50 PM EDT [facility] Routine 12/12/2024 2:10 PM EDT Paroxysmal SVT (supraventricular tachycardia) Chronic hypertension complicating or reason for care during , second trimester [facility] Routine 11/05/2024 2:49 PM EDT HTN in , chronic Hx of preeclampsia, prior , currently SVT (supraventricular tachycardia) , unspecified gestational age from Last 3 Months Results * [facility] (01/20/2025 10:43 AM EDT) Only the most recent of3 resultswithin the time period is included. Anatomical Region Laterality Modality Ultrasound 01/20/2025 10:4 2 AM EDT Narrative 01/20/2025 11:40 AM EDT PAT NAME: FILI PHILLIP [facility] REC#: [id number] DA: 2000 PAT GEND: F PAT TYPE: I EXAM MYRON: [id number] REF PHYS PEPITO SMILEY Comparison Studies The [...] EFW (oz) 1 oz EFW by: Hadlock ([id number]) Extended Cav. septi pel. tr 5.1 mm Crime Prevention Worker 5.1 mm Head / Face / Neck [...] Normal Heart / Thorax 3-vessel view: Normal 4-ikscvn-lphqytb view: normal Stomach: Appears normal Kidneys: Appears [...] Recommend delivery at 37wks. Coding ====== Description: 24907-61 Follow Up Ultrasound Description: 54670-17 BPP without NST Description: 44248-95 Doppler Umbilical Artery Spud Driller: Delmy Xiong RDMS Physician: Akanksha Moore MD Electronically signed by: Akanksha Moore MD at: 11:27 Procedure Note Akanksha Moore MD - 01/21/2025 PAT NAME: FILI PHILLIP MED REC#: [id number] DA: 2000 PAT GEND: F PAT TYPE: I EXAM MYRON: [id number] REF PHYS PEPITO SMILEY Comparison Studies The findings of this study are compared to the prior ultrasound studydated 12/12/24 Patient Status Inpatient Indication ======== CHTN. Rheumatoid arthritis. Maternal chiari malformation. Hx SVT withablation 2022. Vapes. Obesity BMI 34. Maternal Assessment Ilbfns917 cm Siiyls63 kg Weight (lb)211 lb BMI34.32 kg/m Method ======= Transabdominal ultrasound examination. View: Adequate view ========= Beltran . Number of fetuses: 1 Dating ====== Method of dating:based on stated TIFFANY GA by prior [id number] w + 1 d TIFFANY by prior assessment:02/16/2025 Ultrasound examination on:01/20/2025 GA by U/S based upon:AC, BPD, Femur, HC GA by U/S36 w + 1 d TIFFANY by U/S:02/16/2025 Previous dating:based on stated TIFFANY, selected on 12/12/2024 Agreed TIFFANY of previous datin02/16/2025 Assigned:based on stated TIFFANY, selected on 01/20/2025 Assigned GA36 w + 1 d Assigned TIFFANY:02/16/2025 [id number] d Biometry Standard BPD89.1 mm 36w 0d 57% Hadlock BNZ887.1 mm 38w 4d 81% Ermelinda HC330.1 mm 37w 4d 55% Hadlock AC312.4 mm 35w 1d 32% Hadlock Femur70.2 mm 36w 0d 42% Hadlock HC / AC1.06 EFW2,755 g 35w 5d 41% Hadlock EFW (lb)6 lb EFW (oz)1 oz EFW by:Hadlock ([id number]-HK-AD-FL) Extended Cav. septi pel. tr5.1 mm Vp5.1 mm Head / Face / Neck Cephalic index0.79 23% Nicolaides Extremities / Bony Struc FL / BPD0.79 FL / HC0.21 FL / AC0.22 Other Structures COK139 bpm General Evaluation Cardiac activity present. FHR [...] LVOT view:Normal Heart / Thorax 3-vessel view:Normal 7-viswrk-upzvjsu view:normal Stomach:Appears normal Kidneys:Appears normal Bladder:Appears normal [...] labs. Recommend delivery at 37wks. Coding ====== Description:14345-40 Follow Up Ultrasound Description:28049-10 BPP without NST Description:73201-26 Doppler Umbilical Artery Spud Driller: Delmy Xiong RDMS Physician: Akanksha Moore MD Electronically signed by: Akanksha Moore MD at: 11:27 us Neymar Winters MD [facility] US ORDERABLES Edited Resul t - Final * Preeclampsia Panel (01/19/2025 9:10 AM EDT) Alkaline Phosphatase 94 39 - 117 U/L 01/19/2025 10:11 AM EDT [facility] ALT (SGPT) 8 1 - 33 U/L 01/19/2025 10:11 AM EDT [facility] AST (SGOT) 11 1 - 32 U/L 01/19/2025 10:11 AM EDT [facility] Creatinine 0.58 0.57 - 1.00 mg/dL 01/19/2025 10:11 AM EDT [facility] Total Bilirubin 0.2 0.0 - 1.2 mg/dL 01/19/2025 10:11 AM EDT [facility] LDH 148 135 - 214 U/L 01/19/2025 10:11 AM EDT [facility] Uric Acid 5.2 2.4 - 5.7 mg/dL 01/19/2025 10:11 AM EDT [facility] Blood Venipuncture / Unknown 01/19/2025 9:10 AM EDT 01/19/2025 9:39 AM EDT Jeffery Cruz DO LAB BLOOD ORDERABLES Final Result [facility]
[address] [place] [address], * (ABNORMAL) CBC (No Diff) (01/19/2025 9:10 AM EDT) Only the most recent of2 resultswithin the time period is included. WBC 7.71 3.40 - 10.80 10*3/mm3 01/19/2025 10:10 AM EDT [facility] RBC 3.25(L) 3.77 - 5.28 10*6/mm3 01/19/2025 10:10 AM EDT [facility] Hemoglobin 9.8(L) 12.0 - 15.9 g/dL 01/19/2025 10:10 AM EDT [facility] Hematocrit 29.5(L) 34.0 - 46.6 % 01/19/2025 10:10 AM EDT [facility] MCV 90.8 79.0 - 97.0 fL 01/19/2025 10:10 AM EDT [facility] MCH 30.2 26.6 - 33.0 pg 01/19/2025 10:10 AM EDT [facility] MCHC 33.2 31.5 - 35.7 g/dL 01/19/2025 10:10 AM EDT [facility] RDW 13.2 12.3 - 15.4 % 01/19/2025 10:10 AM EDT [facility] RDW-SD 43.2 37.0 - 54.0 fl 01/19/2025 10:10 AM EDT [facility] MPV 10.0 6.0 - 12.0 fL 01/19/2025 10:10 AM EDT [facility] Platelets 216 140 - 450 10*3/mm3 01/19/2025 10:10 AM EDT [facility] Blood Venipuncture / Unknown 01/19/2025 9:10 AM EDT 01/19/2025 9:39 AM EDT Jeffery Cruz DO LAB BLOOD ORDERABLES Final Result [facility]
[address] [place] [address], [place] [phone] * (ABNORMAL) Protein, Urine, 24 Hour - Urine, Clean Catch (01/19/2025 7:36 AM EDT) Protein, 24H Urine 262.2(H) 0.0 - 150.0 mg/24hours 01/19/2025 8:10 AM EDT [facility] 24H Urine Volume 5,350 mL 01/19/2025 8:10 AM EDT [facility] Time (Hours) 24 hrs 01/19/2025 8:10 AM EDT [facility] 24 Hour Urine Urine specimen obtained by clean catch procedure / Unknown 01/19/2025 7:36 AM EDT 01/19/2025 7:36 AM EDT Narrative [facility] - 01/19/2025 8:10 AM EDT Reference ranges are based on a 24 hour period, interperet results accordingly. Zeb Gonzalez MD URINE ORDERABLES Final Result [facility]
[address] [place] [address], [place] [phone] * ABO RH Specimen Verification (01/18/2025 1:33 AM EDT) ABO Type O 01/18/2025 1:42 PM EDT [facility] RH type Positive 01/18/2025 1:42 PM EDT [facility] Blood Venipuncture / Unknown 01/18/2025 1:33 AM EDT 01/18/2025 1:45 AM EDT us Zeb Gonzalez MD BLOOD BANK TEST ORDERABLES Snitia l Result [facility]
[address] [place] [address], [place] [phone] * Treponema pallidum AB w/Reflex RPR (01/17/2025 11:50 PM EDT) Treponemal AB Total Non-Reacti ve Non-React chip 01/18/2025 12:27 PM EDT [facility] Blood Venipuncture / Unknown 01/17/2025 11:50 PM EDT 01/18/2025 12:02 AM EDT Narrative [facility] - 01/18/2025 12:27 PM EDT Reactive results will reflex RPR testing. us Zeb Gonzalez MD LAB BLOOD ORDERABLES Final Resu lt [facility]
[address] [place] [address], [place] [phone] * Type & Screen (01/17/2025 11:50 PM EDT) ABO Type O 01/18/2025 1:10 AM EDT [facility] RH type Positive 01/18/2025 1:10 AM EDT [facility] Antibody Screen Negative 01/18/2025 1:10 AM EDT [facility] T&S Expiration Date 01/20/2025 11:59:59 PM 01/18/2025 1:10 AM EDT [facility] Blood Venipuncture / Unknown 01/17/2025 11:50 PM EDT 01/18/2025 12:30 AM EDT us Zeb Gonzalez MD BLOOD BANK TEST ORDERABLES Edit ed Result - Final Performing Organization Address [facility] Co de Phone Number [facility]
[address] [place] [address], * Uric Acid (01/17/2025 11:50 PM EDT) Uric Acid 4.6 2.4 - 5.7 mg/dL 01/18/2025 12:32 AM EDT [facility] Comment:Falsely depressed re sults may occur on samples drawn from patients receiving N-Acetylcysteine (NAC) or Metamizole. Blood Venipuncture / Unknown 01/17/2025 11:50 PM EDT 01/18/2025 12:02 AM EDT us Zeb Gonzalez MD LAB BLOOD ORDERABLES Final Resu lt Performing Organization Address City/[facility]/ZIP Co de Phone Number [facility]
[address] [place] [address], [place] [phone] * Lactate Dehydrogenase (01/17/2025 11:50 PM EDT) LDH 210 135 - 214 U/L 01/18/2025 12:37 AM EDT [facility] Comment:Specimen hemolyzed. Results may be affected. Blood Venipuncture / Unknown 01/17/2025 11:50 PM EDT 01/18/2025 12:02 AM EDT us Zeb Gonzalez MD LAB BLOOD ORDERABLES Final Resu lt [facility]
[address] [id number], * (ABNORMAL) Comprehensive Metabolic Panel (01/17/2025 11:50 PM EDT) Glucose 81 65 - 99 mg/dL 01/18/2025 12:36 AM EDT [facility] BUN 4.3(L) 6.0 - 20.0 mg/dL 01/18/2025 12:36 AM EDT [facility] Creatinine 0.46(L) 0.57 - 1.00 mg/dL 01/18/2025 12:36 AM EDT [facility] Sodium 137 136 - 145 mmol/L 01/18/2025 12:36 AM EDT [facility] Potassium 4.0 3.5 - 5.2 mmol/L 01/18/2025 12:36 AM EDT [facility] Comment:Specimen hemolyzed. Result may be falsely elevated. Chloride 105 98 - 107 mmol/L 01/18/2025 12:36 AM EDT [facility] CO2 17.5(L) 22.0 - 29.0 mmol/L 01/18/2025 12:36 AM EDT [facility] Calcium 8.3(L) 8.6 - 10.5 mg/dL 01/18/2025 12:36 AM EDT [facility] Total Protein 6.5 6.0 - 8.5 g/dL 01/18/2025 12:36 AM EDT [facility] Albumin 3.6 3.5 - 5.2 g/dL 01/18/2025 12:36 AM EDT [facility] ALT (SGPT) 10 1 - 33 U/L 01/18/2025 12:36 AM EDT [facility] AST (SGOT) 19 1 - 32 U/L 01/18/2025 12:36 AM EDT [facility] Alkaline Phosphatase 100 39 - 117 U/L 01/18/2025 12:36 AM EDT [facility] Total Bilirubin 0.3 0.0 - 1.2 mg/dL 01/18/2025 12:36 AM EDT [facility] Globulin 2.9 gm/dL 01/18/2025 12:36 AM EDT [facility] Comment:Calculated Result A/G Ratio 1.2 g/dL 01/18/2025 12:36 AM EDT [facility] BUN/Creatinine Ratio 9.3 7.0 - 25.0 01/18/2025 12:36 AM EDT [facility] Anion Gap 14.5 5.0 - 15.0 mmol/L 01/18/2025 12:36 AM EDT [facility] eGFR 138.1 >60.0 mL/min/1.7 3 01/18/2025 12:36 AM EDT [facility] Blood Venipuncture / Unknown 01/17/2025 11:50 PM EDT 01/18/2025 12:02 AM EDT Narrative [facility] - 01/18/2025 12:36 AM EDT [...] MD LAB BLOOD ORDERABLES Final Resu lt [facility]
[address] [place] [address], [place] [phone] from Last 3 Months Insurance [place] [id number] [facility] Advance Directives * CPR (Attempt to Resuscitate) (Latest Code Status on File) Date Activated Date Inactivated Comments 01/17/2025 11:22 PM 01/20/2025 2:14 PM Question Answer Comments Code Status (Patient has no pulse and is not breathing): CPR (Attempt to Resuscitate) Medical Interventions (Patie nt has pulse or is breathing): Full Support Level Of Support Discussed With: Patient Care Teams Estimator Paperboard Boxes Relationship Specialty Start Date End Date Destiny Seymour PA [address] [place] [address] [facility] [address] [place] [id number] PCP - General Physician Graphite Grinder 09/14/22
--- NOTE | 2025-01-21 12:52 | US_ITS ---
PROCEDURE: US OB BIOPHYSICAL PROFILE CLINICAL INDICATION: Needs eval nose, lips, palate and cleft COMPARISON: US US OB <= 14 WEEKS FETUS from 06/24/2024 US US OB /MATERNAL DETAIL from 09/26/2024 US OB FOLLOW UP from 10/24/2024 US OB TRANSVAGINAL from 10/24/2024 [facility] OB FOLLOW UP from 11/21/2024 US OB BIOPHYSICAL PROFILE from 12/10/2024 US OB BIOPHYSICAL PROFILE from 12/17/2024 US OB BIOPHYSICAL PROFILE from 12/24/2024 US OB BIOPHYSICAL PROFILE from 12/31/2024 US OB BIOPHYSICAL PROFILE from 01/03/2025 US OB BIOPHYSICAL PROFILE from 01/07/2025 FINDINGS: Transabdominal sonographic images of the uterus were obtained. From her established due date she is 36 weeks 2 days. The following parameters are obtained: Viable Fetus in the cephalic presentation with an anterior placenta grade 2-3. The cervix measures 2.49 cm Measurements: heart Rate = 158bpm Amniotic fluid index: 11.11cm MVP 4.52 cm Qualitative AFV:2 Breathing movements: 2 Gross Body Movements: 2 Tone: 2 Biophysical profile score: 8 No obvious anomalies evident.Kidneys profile,, stomach, bladder, four-chamber heart, three-vessel cord appear normal. There was a concern about a cleft lip on her last ultrasound and the upper lip and nose appeared to be normal today. IMPRESSION: 1. Viable fetus in the cephalic presentation with an anterior placenta grade 2-3. 2. The fluid is within normal limits with an amniotic fluid index 11.11 cm, MVP 4.52 cm. 3. Biophysical profile is 8/8 with good breathing movement and movement seen. 4. Limited anatomical scan appears normal. 5. Detailed view of the upper lip and nose appear normal with no evidence of a cleft. Dictated by: Oliverio Amanda MD 01/21/2025 16:39 Oliverio Amanda MD in OV 01/21/2025 16:39
--- OUTSIDE RECORDS SUMMARY | 2025-01-21 12:52 | XMS_ITS | Patient Health Record ---
Author Organization [facility] Address [address] [place] [id number] Care Team Providers Care Peer Financial Counselor Name Role Phone Destiny Seymour Unavailable [phone] Allergies Allergen (clinical drug ingredient) Drug/Non Drug [...] Last Name Dawn Referring Provider Speciality Physician Mental Health Consultant Referred Provider Rheumatology, . Referred Provider Specialty Rheumatology General Notes Destiny Seymour 2023 11:16:04 AM > PT needs an appt with Pepper Bonilla Brynn 02/12/2024 11:44:56 AM > sent referral to Dr. Jacobs via [facility] website Referral Priority Routine Diagnosis 1 Rheumatoid arthritis with positive rheumatoid factor, involving unspecified site (M05.9) Referral Organization [facility] Referring Provider First Name Destiny Referring Provider Last Name Dawn Referring Provider Speciality Physician Mental Health Consultant Referred Provider Rheumatology, . Referred Provider Specialty [...] W/U Status Risk Notes Problem Supraventricular tachycardia (3243129) SVT (supraventricular tachycardia) (I47.1) Active confirmed Problem Paresthesia (08025311) Paresthesia (R20.2) Active confirmed Problem Mixed anxiety and depressive disorder (144956822) Depression with anxiety (F41.8) Active confirmed Problem Thyroid nodule (478809292) Thyroid nodule (E04.1) Active confirmed Problem Panic disorder (922679845) Panic attacks (F41.0) Active confirmed Problem Refractory migraine with aura (347027542) Intractable migraine with aura without status migrainosus (G43.119) Active confirmed Problem Cardiac arrhythmia (321428121) Cardiac arrhythmia, unspecified cardiac arrhythmia type (I49.9) Active confirmed Problem Refractory migraine (295782781) Intractable migraine without status migrainosus, unspecified migraine type (G43.919) Active confirmed Problem Thyromegaly (7999134) Thyromegaly (E01.0) Active confirmed Problem Migraine (79440711) Migraine syn drome (G43.909) Active confirmed Problem Gastroesophageal reflux disease (532688491) Gastroesophageal reflux disease, unspecified whether esophagitis present (K21.9) Active confirmed Problem Rheumatoid arthritis (01586617) Rheumatoid arthritis, involving unspecified site, unspecified whether rheumatoid factor present (M06.9) Active confirmed Problem Rheumatoid arthritis (60520186) Rheumatoid arthritis with positive rheumatoid factor, involving unspecified site (M05.9) Active confirmed Problem Tobacco user (887304274) Vaping nicotine dependence, non-tobacco product (F17.200) Active confirmed Problem Drug-induced insomnia (33462811338355) 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) Active confirmed Problem Compression of brain (40401339) 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) Active confirmed Vital Signs Heart Rate 85 /min 04/24/2024 Blood pressure diastolic 100 mm Hg 04/24/2024 Height 66 in 04/24/2024 Blood pressure systolic 134 mm Hg 04/24/2024 Weight 187.0 lbs 04/24/2024 BMI 30.18 kg/m2 04/24/2024 Encounters Encounter Location Date Provider [facility] [address] [place] [id number] 02/08/2024 Destiny Seymour Gastroesophageal ref lux disease, unspecified whether esophagitis present K21.9 and Rheumatoid arthritis, involving unspecified site, unspecified whether rheumatoid factor present M06.9 [facility] [address] [place] [phone] 04/24/2024 Destiny Seymour Strep pharyngitis J0 2.0 and Rheumatoid arthritis with positive rheumatoid factor, involving unspecified site M05.9 [facility] [address] [place] [phone] 08/01/2024 Destiny Seymour Assessments Encounter Date Diagnosis [...] [employer] [address] [place] [address] [id number] FILI PHILLIP Self - patient is [...]
--- OUTSIDE RECORDS SUMMARY | 2025-01-21 12:52 | XMS_ITS | Clinical Summary ---
Author Organization [facility] Address [address] [facility] [address] [place] [address] Phone Care Team Providers Care Merchant Tailor Name Role Phone Unavailable Primary Care Provider Unavailabl e Allergies No known active allergies Active Problems Problem Noted Date Diagnosed Date S/P RF ablation operation for arrhythmia 023 Overview (03/02/2023): EPS, SVT Ablation 11/25/22-Dr. Demetrio Pearson @ [facility] SVT (supraventricular tachycardia) Surgical History Surgery Date Site/Laterality Comments CYST REMOVAL 08/31/2020 - 09/30/2020 Right R Hand Cyst Removal ABLATION OF DYSRHYTHMIC FOCUS 11/25/2022 EPS, SVT Ablation-Dr. Demetrio Pearson @ [facility] Medical History Medical History [...]
--- OUTSIDE RECORDS SUMMARY | 2025-01-21 12:52 | XMS_ITS | Encounter Summary ---
Author Organization [facility] Address [address] [place] [address] Care Team Providers Care Supervisor Furnace Process Name Role Phone Destiny Seymour Primary Care Provider [phone] Encounter Details Date Type Department Care Team (Latest Contact Info) Description 01/17/2025 Travel 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 Tobacco Use Types Packs/Day Years Used Date Smoking Tobacco: Never Passive Smoke Exposure: Past Smokeless Tobacco: Never Alcohol Use Standard Drinks/Week Comments Not Currently 2 (1 standard drink = 0.6 oz pur e alcohol) socially [facility] Utilities Answer Date Recorded In the past 12 months has [facility] electric, gas, oil, or water company threatened to [...] and heating? Not hard at all 01/17/2025 [facility] Occupat ional Health - Occupational Stress [...] GED or equivalent No 01/17/2025 Preferred Language Andorran 01/17/2025 PHQ-2 Answer Date Recorded Patient Health Questionnaire-2 Score 3 01/17/2025 Estimated Date of Delivery Comme nts Yes 02/16/2025 Based on Patient Reported Sex and Gender Information Value Date Recorded Sex Assigned at Not on file Legal Sex Female 4:51 PM EDT Gender Identity Not on file Sexual Orientation Not on file documented as of this encounter Functional Status * Audit-C Score Answer Date of Assessment Author 0 01/17/2025 11:34 PM EDT Atiya Hicks RN * Question Answer Date of Assessment Author Q1: How often do you have a drink containing alcohol? Never 01/17/2025 11:34 PM HARLANT Atiya Hicks RN Q2: How many drinks [...] Questionnaire -2 Score 3 01/17/2025 11:34 PM Alexandrea Maurer RN * Question Answer Date of Assessment Author 1. Wish to be (Past 1 Month) No 01/17/2025 11:07 PM Alexandrea Maurer RN 2. Non-Specific Active Suicidal Thoughts (Past 1 Month) No 01/17/2025 11:07 PM HARLANT Alexandrea Hicks RN * Calculated C-SSRS Risk Score (Lifetime/Recent) Answer Date of Assessment Author No Risk Indicated 01/17/2025 11:07 PM HARLANT Atiya Gordon RN * [place] Suicide Severity Rating Scale (Screener/Recent Self-Report) Question Answer Date of Assessment Author 6. Suicidal Behavior (Lifetime) No 01/17/2025 11:07 PM Alexandrea Maurer RN * Question Answer Date of Assessment Author Little interest or pleasure in doing things Nearly every day 01/17/2025 11:34 PM Alexandrea Maurer RN Feeling down, depressed, or hopeless Not at all 01/17/2025 11:34 PM EDT Jessica Hicks RN documented as of this encounter Plan of Treatment Not on file documented as of this encounter Visit Diagnoses Not on filedocumented in this encounter Care Teams Supervisor Furnace Process Relationship Specialty Start Date End Date Destiny Seymour PA [address] [place] [address] [facility] [address] [place] [address] PCP - General Physician Vehicle Delivery Worker 09/14/22 documented as of this encounter
--- OUTSIDE RECORDS SUMMARY | 2025-01-21 12:52 | XMS_ITS | Clinical Summary ---
Author Organization Healthcare Address [address] [place] [address] Care Team Providers Care Monorail Operator Name Role Phone Leah Jasso APRN Primary Care Provider [phone] Family History Medical History Relation Name Comments [...] 19+ 3-dose series) 2020 UKY-Pap Smear 2022 [id number] Vaccine (1 - 20 24-25 season) 2024 [...] to [place] this [place] [address] WANG Care Teams Monorail Operator Relationship Specialty Start Date End Date Leah Jasso APRN [address] [facility] [address] [place] [address] PCP - General 11/13/20
[2025-01-21 14:30] LABS: Microscopic, Urine URINE MICROSCOPIC (MICROSCOPIC)
[2025-01-21 14:33] LABS: Bilirubin,Urine Negative (Negative); Color,Urine YELLOW (Yellow); Glucose,Urine (UA) Negative (Negative); Ketones,Urine Negative (Negative); Leukocyte Esterase,Urine TRACE (Negative); PH,Urine 6.5 (5.0-8.5); Protein,Urine Negative (Negative); Specific Gravity, Urine <= 1.005 (1.005-1.030); Urobilinogen,Urine 0.2 EU/dl (0.2)
[2025-01-21 14:51] LABS: Bacteria,Urine Trace /lpf
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
[2025-01-21] MEDS: LABETALOL 100MG TABLET 300 MG PO (19:25)
[2025-01-22] VITALS (14 sets, daily range): BP systolic 114–156; BP diastolic 59–96; PULSE 64–92; RESP 16–18; TEMP 36.7–37.1; O2SAT 97–99
[2025-01-22] MEDS: LABETALOL 100MG TABLET 300 MG PO ×3 (05:10→22:15)
[2025-01-22 06:15] LABS: Hematocrit 32.8 % (37.0-47.0); Hemoglobin 11.3 g/dL (12.2-16.2); Immature Granulocytes % 0.5 %; Mean Corpuscular HGB Conc 34.5 g/dL (31.8-35.4); Mean Corpuscular Hemoglobin 30.9 pg (27.0-31.2); Mean Corpuscular Volume 89.6 fl (81-99); Nucleated Red Blood Cells % 0 %; Platelet Count 249 K/mm3 (142-424); Red Blood Count 3.66 M/mm3 (4.20-5.40); Red Cell Distribution Width-SD 41.4 fL; White Blood Count 9.2 K/mm3 (4.8-10.8)
[2025-01-22 06:28] LABS: Alanine Aminotransferase 17 U/L (12-78); Albumin Level 3.6 g/dl (3.5-5.0); Albumin/Globulin Ratio 1.2 (1.1-1.8); Alkaline Phosphatase 111 U/L (38-126); Anion Gap 11.8 mEq/L (5-15); Aspartate Amino Transferase 26 U/L (14-36); Bilirubin,Total 0.6 mg/dl (0.2-1.3); Blood Urea Nitrogen 6 mg/dl (7-17); Calcium 9.3 mg/dl (8.4-10.2); Carbon Dioxide 20 mmol/L (22.0-30.0); Chloride 106 mmol/L (98-107); Creatinine Clearance Estimated 264 mL/min (50-200); Creatinine,Serum 0.50 mg/dl (0.52-1.04); Estimated Glomerular Filt Rate 153 ml/min (>60); GFR (African American) 185 ML/MIN (>60); Globulin 2.9 g/dL (1.3-3.2); Glucose 92 mg/dl (74-100); Potassium 3.8 mmoL/L (3.5-5.1); Sodium 134 mmol/L (136-145); Total Protein,Serum 6.5 g/dl (6.3-8.2); Uric Acid 4.8 mg/dl (2.5-6.2)
[2025-01-22 06:33] LABS: Activated Partial Thrombo Time 26.0 seconds (22.8-30.6); Fibrinogen 416 mg/dL (229.9-363.5); INR 0.93 (0.9-1.1); Prothrombin Time 10.4 seconds (10.1-12.5)
[2025-01-22] MEDS: ASPIRIN 81MG CHEWABLE TABLET 81 MG PO (08:27)
--- NOTE | 2025-01-22 10:46 | EXP.PN ---
Subjective *Date: 01/22/25 *Time: 10:51 Interval history: Jess is a 24 yo at 36w3d, dated by 6wk US. This is HD#2. She is admitted for elevated BP. She has had severe range blood pressures and needed IV medications. She was transferred to [facility] on 01/17/25 but discharged home because her blood pressure is well controlled while inpatient and she does not have significant proteinuria, <300mg. Hindu[employer] repeated her 24 hour urine protein. This morning she denies any headaches, vision changes. Endorses good movement. Denies any leakage of fluid or vaginal bleeding. Exam Data for Last 24 hours Vital signs and Labs for Last 24 Hours: Temp Pulse Resp BP Pulse Ox O2 Del Method 98.5 F 72 17 114/73 99 Room Air 01/22/25 08:00 01/22/25 08:00 01/22/25 08:00 01/22/25 10:00 01/22/25 08:00 01/22/25 08:00 Laboratory Results - last 24 hr 01/21/25 14:15: Urine Color Yellow, Urine Appearance Clear, Urine pH 6.5, Ur Specific [place] <= 1.005, Urine Protein Negative, Urine Glucose (UA) Negative, Urine Ketones Negative, Urine Blood Negative, Urine Nitrate Negative, Urine Bilirubin Negative, Urine Urobilinogen 0.2, Ur Leukocyte Esterase Trace, Urine RBC None, Urine WBC 5-10, Ur Squamous Epith Cells 10-20, Urine Bacteria Trace, Urine Creatinine 58, Urine Total Protein 15.0 H 01/22/25 05:43: WBC 9.2, RBC 3.66 L, Hgb 11.3 L, Hct 32.8 L, MCV 89.6, MCH 30.9, MCHC 34.5, RDW 12.8, Plt Count 249, MPV 10.1, Neut % (Auto) 76.3, Lymph % (Auto) 17.0, [place] % (Auto) 5.6, Eos % (Auto) 0.5, Baso % (Auto) 0.1, Neut # (Auto) 7.0, Lymph # (Auto) 1.6, [place] # (Auto) 0.5, Eos # (Auto) 0.1, Baso # (Auto) 0.0, PT 10.4, INR 0.93, APTT 26.0, Fibrinogen 416 H, Sodium 134 L, Potassium 3.8, Chloride 106, Carbon Dioxide 20 L, Anion Gap 11.8, BUN 6 L, Creatinine 0.50 L, Estimated Creat Clear 264, Estimated GFR 153, Est GFR ( Amer) 185, Glucose 92, Uric Acid 4.8, Calcium 9.3, Total Bilirubin 0.6, AST 26, ALT 17, Alkaline Phosphatase 111, Total Protein 6.5, Albumin 3.6, Globulin 2.9, Albumin/Globulin Ratio 1.2 I & O for Last 24 hours: Intake & Output 01/19/25 01/20/25 01/21/25 01/22/25 23:59 23:59 23:59 23:59 Weight 211 lb Constitutional Constitutional: no acute distress *Routine HEENT Exam Head: Present normocephalic Eye: Present EOMI and PERRL ENT: Present mucous membranes moist *Routine Neck Exam Neck: Present supple; Absent lymphadenopathy *Routine Respiratory Exam Respiratory: Present CTA bilaterally *Routine Cardiovascular Exam Cardiovascular: Present RRR *Routine Abdominal Exam Abdominal: Present soft and normoactive bowel sounds; Absent tenderness *Routine Extremities Exam Extremities: Absent cyanosis, clubbing or edema Comments: Plus 2 out of 4 bilateral lower extremity reflexes *Routine Skin Exam Skin: Present warm; Absent rash *Routine Neurological Exam Neurological: Present alert and oriented X3 Assessment and Plan *Assessment and plan (1) Chronic hypertension affecting : Status: Acute Category: Medical Code(s): O10.919 - Unspecified pre-existing hypertension complicating , unspecified trimester (2) : Status: Acute Qualifiers: Weeks of gestation: 35 weeks Qualified Code(s): Z3A.35 - 35 weeks gestation of Category: Medical Code(s): Z34.90 - Encounter for supervision of normal , unspecified, unspecified trimester Plan #Chronic hypertension, poorly controlled blood pressures requiring frequent medication dose adjustments - Plan for delivery at 37 weeks gestation unless indicated sooner - PIH labs every 24 hours unless indicated sooner - Increase labetalol to 300 mg 3 times a day - Continue nifedipine 30 mg daily
[2025-01-23 00:41] VITALS: BP 142/76; PULSE 88; RESP 16
[2025-01-23 04:35] VITALS: BP 134/76; PULSE 74; RESP 16; TEMP 37; O2SAT 98
[2025-01-23 06:08] LABS: Hematocrit 32.9 % (37.0-47.0); Hemoglobin 11.1 g/dL (12.2-16.2); Immature Granulocytes % 1.1 %; Mean Corpuscular HGB Conc 33.7 g/dL (31.8-35.4); Mean Corpuscular Hemoglobin 30.7 pg (27.0-31.2); Mean Corpuscular Volume 91.1 fl (81-99); Nucleated Red Blood Cells % 0 %; Platelet Count 236 K/mm3 (142-424); Red Blood Count 3.61 M/mm3 (4.20-5.40); Red Cell Distribution Width-SD 42.5 fL; White Blood Count 8.5 K/mm3 (4.8-10.8)
[2025-01-23 06:09] LABS: Alanine Aminotransferase 15 U/L (12-78); Albumin Level 3.5 g/dl (3.5-5.0); Albumin/Globulin Ratio 1.3 (1.1-1.8); Alkaline Phosphatase 110 U/L (38-126); Anion Gap 11.8 mEq/L (5-15); Aspartate Amino Transferase 22 U/L (14-36); Bilirubin,Total 0.6 mg/dl (0.2-1.3); Blood Urea Nitrogen 4 mg/dl (7-17); Calcium 9.1 mg/dl (8.4-10.2); Carbon Dioxide 20 mmol/L (22.0-30.0); Chloride 107 mmol/L (98-107); Creatinine Clearance Estimated 264 mL/min (50-200); Creatinine,Serum 0.50 mg/dl (0.52-1.04); Estimated Glomerular Filt Rate 153 ml/min (>60); GFR (African American) 185 ML/MIN (>60); Globulin 2.6 g/dL (1.3-3.2); Glucose 79 mg/dl (74-100); Potassium 3.8 mmoL/L (3.5-5.1); Sodium 135 mmol/L (136-145); Total Protein,Serum 6.1 g/dl (6.3-8.2); Uric Acid 4.5 mg/dl (2.5-6.2)
[2025-01-23 06:18] LABS: Activated Partial Thrombo Time 26.5 seconds (22.8-30.6); Fibrinogen 416 mg/dL (229.9-363.5); INR 0.95 (0.9-1.1); Prothrombin Time 10.6 seconds (10.1-12.5)
[2025-01-23] MEDS: LABETALOL 100MG TABLET 300 MG PO ×3 (07:29→21:43)
[2025-01-23 07:38] VITALS: BP 140/92; PULSE 82; RESP 18; TEMP 36.8; O2SAT 99
--- NOTE | 2025-01-23 08:45 | EXP.PN ---
Subjective *Date: 01/23/25 *Time: 08:45 Interval history: Jess is a 24 yo at 36w4d, dated by 6wk US. This is HD#3. She is admitted for elevated BP in the setting of CHTN. She has not had any elevations in BP. This morning she denies any headaches, vision changes. Endorses good movement. Denies any leakage of fluid or vaginal bleeding. Exam Data for Last 24 hours Vital signs and Labs for Last 24 Hours: Temp Pulse Resp BP Pulse Ox O2 Del Method 98.3 F 82 18 140/92 H 99 Room Air 01/23/25 07:38 01/23/25 07:38 01/23/25 07:38 01/23/25 07:38 01/23/25 07:38 01/23/25 07:38 Laboratory Results - last 24 hr 01/23/25 04:55: WBC 8.5, RBC 3.61 L, Hgb 11.1 L, Hct 32.9 L, MCV 91.1, MCH 30.7, MCHC 33.7, RDW 13.0, Plt Count 236, MPV 10.3, Neut % (Auto) 73.8, Lymph % (Auto) 18.6, [place] % (Auto) 5.6, Eos % (Auto) 0.8, Baso % (Auto) 0.1, Neut # (Auto) 6.2, Lymph # (Auto) 1.6, [place] # (Auto) 0.5, Eos # (Auto) 0.1, Baso # (Auto) 0.0, PT 10.6, INR 0.95, APTT 26.5, Fibrinogen 416 H, Sodium 135 L, Potassium 3.8, Chloride 107, Carbon Dioxide 20 L, Anion Gap 11.8, BUN 4 L D, Creatinine 0.50 L, Estimated Creat Clear 264, Estimated GFR 153, Est GFR ( Amer) 185, Glucose 79, Uric Acid 4.5, Calcium 9.1, Total Bilirubin 0.6, AST 22, ALT 15, Alkaline Phosphatase 110, Total Protein 6.1 L, Albumin 3.5, Globulin 2.6, Albumin/Globulin Ratio 1.3 I & O for Last 24 hours: Intake & Output 01/20/25 01/21/25 01/22/25 01/23/25 23:59 23:59 23:59 23:59 Weight 211 lb Constitutional Constitutional: no acute distress *Routine HEENT Exam Head: Present normocephalic Eye: Present EOMI and PERRL ENT: Present mucous membranes moist *Routine Neck Exam Neck: Present supple; Absent lymphadenopathy *Routine Respiratory Exam Respiratory: Present CTA bilaterally *Routine Cardiovascular Exam Cardiovascular: Present RRR *Routine Abdominal Exam Abdominal: Present soft and normoactive bowel sounds; Absent tenderness *Routine Extremities Exam Extremities: Absent cyanosis, clubbing or edema Comments: Plus 2 out of 4 bilateral lower extremity reflexes *Routine Skin Exam Skin: Present warm; Absent rash *Routine Neurological Exam Neurological: Present alert and oriented X3 Assessment and Plan *Assessment and plan (1) Chronic hypertension affecting : Status: Acute Category: Medical Code(s): O10.919 - Unspecified pre-existing hypertension complicating , unspecified trimester (2) : Status: Acute Qualifiers: Weeks of gestation: 35 weeks Qualified Code(s): Z3A.35 - 35 weeks gestation of Category: Medical Code(s): Z34.90 - Encounter for supervision of normal , unspecified, unspecified trimester Plan #Chronic hypertension, poorly controlled blood pressures requiring frequent medication dose adjustments - Plan for delivery at 37 weeks gestation unless indicated sooner - PIH labs every 24 hours unless indicated sooner - continue labetalol to 300 mg 3 times a day - Continue nifedipine 30 mg daily - Doing well. no BP elevation and asymptomatic
[2025-01-23] MEDS: ASPIRIN 81MG CHEWABLE TABLET 81 MG PO (08:46)
--- OUTSIDE RECORDS SUMMARY | 2025-01-23 16:29 | XMS_ITS | Encounter Summary ---
Author Organization [facility] Address [address] [address] Care Team Providers Care Associate Merchandise Planner Name Role Phone Destiny Seymour Primary Care Provider [phone] Encounter Details Date Type Department Care Team [...] on filedocumented in this encounter Care Teams Associate Merchandise Planner Relationship Specialty Start Date End Date Destiny Seymour PA [address] [address] PCP - General Physician Console Operator 09/14/22 documented as of this encounter
--- OUTSIDE RECORDS SUMMARY | 2025-01-23 16:29 | XMS_ITS | Clinical Summary ---
Author Organization Healthcare Address [address] [place] [address] Care Team Providers Care Esl Instructional Assistant Name Role Phone Leah Jasso APRN Primary Care Provider Family History Medical History Relation Name Comments [...] 19+ 3-dose series) 2020 UKY-Pap Smear 2022 [id number] Vaccine (1 - 20 24-25 season) 2024 [...] [place] this [place] [address] [place] Care Teams Esl Instructional Assistant Relationship Specialty Start Date End Date Leah Jasso APRN [address] [facility] [address] [place] [address] PCP - General 11/13/20
--- OUTSIDE RECORDS SUMMARY | 2025-01-23 16:29 | XMS_ITS | Encounter Summary ---
Author Organization [facility] Address [address] [place] [address] Care Team Providers Care Radio Broadcaster Name Role Phone Destiny Seymour Primary Care Provider [phone] Encounter Details Date Type Department Care Team (Latest Contact Info) Description 01/17/2025 Travel 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 Tobacco Use Types Packs/Day Years Used Date Smoking Tobacco: Never Passive Smoke Exposure: Past Smokeless Tobacco: Never Alcohol Use Standard Drinks/Week Comments Not Currently 2 (1 standard drink = 0.6 oz pur e alcohol) socially [facility] Utilities Answer Date Recorded In the past 12 months has [employer] electric, gas, oil, or water company threatened [...] and heating? Not hard at all 01/17/2025 [facility] of Occupat ional Health - Occupational Stress [...] GED or equivalent No 01/17/2025 Preferred Language Iranian 01/17/2025 PHQ-2 Answer Date Recorded Patient Health [...] 11:07 PM HARLANT Atiya Gordon RN * [place] Suicide Severity Rating Scale (Screener/Recent Self-Report) Question [...] on filedocumented in this encounter Care Teams Radio Broadcaster Relationship Specialty Start Date End Date Destiny Seymour PA [address] [place] [address] [facility] [address] [place] [address] PCP - General Physician Hematologist Oncologist 09/14/22 documented as of this encounter
--- OUTSIDE RECORDS SUMMARY | 2025-01-23 16:29 | XMS_ITS | Clinical Summary ---
Author Organization [facility] Address [address] [place] [address] Care Team Providers Care Region Manager Name Role Phone Destiny Seymour Primary Care Provider [phone] Allergies Active Allergy Reactions Criticality Noted Date [...] ued(Stop Taking at Discharge ) nystatin (MYCOSTATIN) 336866 UNIT/GM powder As Needed. 08/23/19 25 025 [...] - 01/20/2025 12:12 PM EDT Hospital Encounter [facility] [address] [place] [address] Zeb Gonzalez MD Discharge Disposition: Home or Self Care 01/17/2025 Travel 12/12/2024 1:45 PM EDT Office Visit [facility] [address] [place] [address] John Mendoza MD Chronic hypertension complicating or reason for care during , second trimester (Primary Dx) 12/12/2024 1:26 PM EDT - 12/12/2024 11:59 PM EDT Hospital Encounter [facility] [address] [place] [address] John Mendoza MD Paroxysmal SVT (supraventricular tachycardia); Chronic hypertension complicating or reason for care during , second trimester Discharge Disposition: Home or Self Care 12/12/2024 Travel 11/05/2024 1:30 PM EDT - 11/05/2024 11:59 PM EDT Hospital Encounter [facility] [address] [place] [address] Pepito Smiley, HTN in , chronic; Hx of preeclampsia, prior , currently ; SVT (supraventricular tachycardia); , unspecified gestational age Discharge Disposition: Home or Self Care 11/05/2024 1:30 PM EDT Office Visit [facility] MATERNAL MEDICINE [address] [facility] [address] [place] [address] John Mendoza MD Paroxysmal SVT [...] = 0.6 oz pur e alcohol) socially [facility] Utilities Answer Date Recorded In the past 12 months has [employer], gas, oil, or water [employer] threatened to shut off services in your [...] and heating? Not hard at all 01/17/2025 [facility] of Occupat ional Health - Occupational Stress [...] GED or equivalent No 01/17/2025 Preferred Language Samoan 01/17/2025 PHQ-2 Answer Date Recorded Patient Health [...] Procedure Name Priority Date/Time Associated Diagnosis Comments [facility] STAT 01/20/2025 10:43 [...] (NO DIFF) Routine 01/17/2025 11:50 PM EDT SCANNED - TELEMETRY 01/17/2025 SCANNED - LABS 01/17/2025 [facility] Routine 12/12/2024 2:10 PM EDT Paroxysmal SVT (supraventricular tachycardia) Chronic hypertension complicating or reason for care during , second trimester [facility] Routine 11/05/2024 2:49 PM EDT HTN in , chronic Hx of preeclampsia, prior , currently SVT (supraventricular tachycardia) , unspecified gestational age from Last 3 Months Results * [facility] (01/20/2025 10:43 AM EDT) Only the most recent of3 resultswithin the time period is included. Anatomical Region Laterality Modality Ultrasound 01/20/2025 10:4 2 AM EDT Narrative 01/20/2025 11:40 AM EDT PAT NAME: FILI PHILLIP MED REC#: [id number] DA: 2000 PAT GEND: F PAT TYPE: I EXAM MYRON: [id number] REF PHYS PEPITO SMILEY Comparison Studies The [...] EFW (oz) 1 oz EFW by: Hadlock ([id number]) Extended Cav. septi pel. tr 5.1 mm Team Psychologist 5.1 mm Head / Face / Neck [...] Normal Heart / Thorax 3-vessel view: Normal 2-nyviuq-tgulnpv view: normal Stomach: Appears normal Kidneys: Appears [...] Amniotic fluid volume 8 Biophysical profile score Interpretation: normal Impression ========= [...] Recommend delivery at 37wks. Coding ====== Description: 88753-44 Follow Up Ultrasound Description: 06695-57 BPP without NST Description: 74825-47 Doppler Umbilical Artery Money Market Dealer: Delmy Xiong RDMS Physician: Akanksha Moore MD Electronically signed by: Akanksha Moore MD at: 11:27 Procedure Note Akanksha Moore MD - 01/21/2025 PAT NAME: FILI PHILLIP MED REC#: [id number] DA: 2000 PAT GEND: F PAT TYPE: I EXAM MYRON: [id number] REF PHYS PEPITO SMILEY Comparison Studies The findings of this study are compared to the prior ultrasound studydated 12/12/24 Patient Status Inpatient Indication ======== CHTN. Rheumatoid arthritis. Maternal chiari malformation. Hx SVT withablation 2022. Vapes. Obesity BMI 34. Maternal Assessment Zrutlb483 cm Xhedyn72 kg Weight (lb)211 lb BMI34.32 kg/m Method ======= Transabdominal ultrasound examination. View: Adequate view ========= Beltran . Number of fetuses: 1 Dating ====== Method of dating:based on stated TIFFANY GA by prior [id number] w + 1 d TIFFANY by prior assessment:02/16/2025 Ultrasound examination on:01/20/2025 GA by U/S based upon:AC, BPD, Femur, HC GA by U/S36 w + 1 d TIFFANY by U/S:02/16/2025 Previous dating:based on stated TIFFANY, selected on 12/12/2024 Agreed TIFFANY of previous datin02/16/2025 Assigned:based on stated TIFFANY, selected on 01/20/2025 Assigned GA36 w + 1 d Assigned TIFFANY:02/16/2025 [id number] d Biometry Standard BPD89.1 mm 36w 0d 57% Hadlock QGD410.1 mm 38w 4d 81% Ermelinda HC330.1 mm 37w 4d 55% Hadlock AC312.4 mm 35w 1d 32% Hadlock Femur70.2 mm 36w 0d 42% Hadlock HC / AC1.06 EFW2,755 g 35w 5d 41% Hadlock EFW (lb)6 lb EFW (oz)1 oz EFW by:Hadlock (ZIR-[id number]-[id number]-FL) Extended Cav. septi pel. tr5.1 mm Vp5.1 mm Head / Face / Neck Cephalic index0.79 23% Nicolaides Extremities / Bony Struc FL / BPD0.79 FL / HC0.21 FL / AC0.22 Other Structures JAD521 bpm General Evaluation Cardiac activity present. FHR [...] LVOT view:Normal Heart / Thorax 3-vessel view:Normal 2-gjwdlw-rhfaevu view:normal Stomach:Appears normal Kidneys:Appears normal Bladder:Appears normal [...] labs. Recommend delivery at 37wks. Coding ====== Description:02666-60 Follow Up Ultrasound Description:59391-78 BPP without NST Description:98734-70 Doppler Umbilical Artery Money Market Dealer: Delmy Xiong RDMS Physician: Akanksha Moore MD Electronically signed by: Akanksha Moore MD at: 11:27 us Neymar Winters MD [facility] US ORDERABLES Edited Resul t - Final * Preeclampsia Panel (01/19/2025 9:10 AM EDT) Alkaline Phosphatase 94 39 - 117 U/L 01/19/2025 10:11 AM EDT [facility] ALT (SGPT) 8 1 - 33 U/L 01/19/2025 10:11 AM EDT [facility] AST (SGOT) 11 1 - 32 U/L 01/19/2025 10:11 AM EDT [facility] Creatinine 0.58 0.57 - 1.00 mg/dL 01/19/2025 10:11 AM EDT [facility] Total Bilirubin 0.2 0.0 - 1.2 mg/dL 01/19/2025 10:11 AM EDT [facility] LDH 148 135 - 214 U/L 01/19/2025 10:11 AM EDT [facility] Uric Acid 5.2 2.4 - 5.7 mg/dL 01/19/2025 10:11 AM EDT [facility] Blood Venipuncture / Unknown 01/19/2025 9:10 AM EDT 01/19/2025 9:39 AM EDT Jeffery Cruz DO LAB BLOOD ORDERABLES Final Result [facility]
[address] [place] [address], * (ABNORMAL) CBC (No Diff) (01/19/2025 9:10 AM EDT) Only the most recent of2 resultswithin the time period is included. WBC 7.71 3.40 - 10.80 10*3/mm3 01/19/2025 10:10 AM EDT [facility] RBC 3.25(L) 3.77 - 5.28 10*6/mm3 01/19/2025 10:10 AM EDT [facility] Hemoglobin 9.8(L) 12.0 - 15.9 g/dL 01/19/2025 10:10 AM EDT [facility] Hematocrit 29.5(L) 34.0 - 46.6 % 01/19/2025 10:10 AM EDT [facility] MCV 90.8 79.0 - 97.0 fL 01/19/2025 10:10 AM EDT [facility] MCH 30.2 26.6 - 33.0 pg 01/19/2025 10:10 AM EDT [facility] MCHC 33.2 31.5 - 35.7 g/dL 01/19/2025 10:10 AM EDT [facility] RDW 13.2 12.3 - 15.4 % 01/19/2025 10:10 AM EDT [facility] RDW-SD 43.2 37.0 - 54.0 fl 01/19/2025 10:10 AM EDT [facility] MPV 10.0 6.0 - 12.0 fL 01/19/2025 10:10 AM EDT [facility] Platelets 216 140 - 450 10*3/mm3 01/19/2025 10:10 AM EDT [facility] Blood Venipuncture / Unknown 01/19/2025 9:10 AM EDT 01/19/2025 9:39 AM EDT Jeffery Cruz DO LAB BLOOD ORDERABLES Final Result [facility]
[address] [place] [address], [place] [phone] * (ABNORMAL) Protein, Urine, 24 Hour - Urine, Clean Catch (01/19/2025 7:36 AM EDT) Protein, 24H Urine 262.2(H) 0.0 - 150.0 mg/24hours 01/19/2025 8:10 AM EDT [facility] 24H Urine Volume 5,350 mL 01/19/2025 8:10 AM EDT [facility] Time (Hours) 24 hrs 01/19/2025 8:10 AM EDT [facility] 24 Hour Urine Urine specimen obtained by clean catch procedure / Unknown 01/19/2025 7:36 AM EDT 01/19/2025 7:36 AM EDT Narrative [facility] - 01/19/2025 8:10 AM EDT Reference ranges are based on a 24 hour period, interperet results accordingly. us Zeb Gonzalez MD URINE ORDERABLES Final Result Performing Organization Address City/[facility]/ZIP Co de Phone Number [facility]
[address] [place] [address], * ABO RH Specimen Verification (01/18/2025 1:33 AM EDT) ABO Type O 01/18/2025 1:42 PM EDT [facility]ORAT[facility] RH type Positive 01/18/2025 1:42 PM EDT [facility] Blood Venipuncture / Unknown 01/18/2025 1:33 AM EDT 01/18/2025 1:45 AM EDT us Zeb Gonzalez MD BLOOD BANK TEST ORDERABLES Sintia l Result Performing Organization Address [facility] Co de Phone Number [facility]
[address] [place] [address], [place] [phone] * Treponema pallidum AB w/Reflex RPR (01/17/2025 11:50 PM EDT) Treponemal AB Total Non-Reacti ve Non-React chip 01/18/2025 12:27 PM EDT LABORATORY Blood Venipuncture / Unknown 01/17/2025 11:50 PM EDT 01/18/2025 12:02 AM EDT Narrative LABORATORY - 01/18/2025 12:27 PM EDT Reactive results will reflex RPR testing. us Zeb Gonzalez MD LAB BLOOD ORDERABLES Final Resu lt Performing Organization Address [facility] Co de Phone Number LABORATORY
[address] [place] [address], [place] [phone] * Type & Screen (01/17/2025 11:50 PM EDT) ABO Type O 01/18/2025 1:10 AM EDT [facility] BB LABORATORY RH type Positive 01/18/2025 1:10 AM EDT [facility] BB LABORATORY Antibody Screen Negative 01/18/2025 1:10 AM EDT [facility] T&S Expiration Date 01/20/2025 11:59:59 PM 01/18/2025 1:10 AM EDT [facility] Blood Venipuncture / Unknown 01/17/2025 11:50 PM EDT 01/18/2025 12:30 AM EDT us Zeb Gonzalez MD BLOOD BANK TEST ORDERABLES Edit ed Result - Final Performing Organization Address [facility] Co de Phone Number [facility]
[address] [place] [address], [place] [phone] * Uric Acid (01/17/2025 11:50 PM EDT) Uric Acid 4.6 2.4 - 5.7 mg/dL 01/18/2025 12:32 AM EDT [facility] Comment:Falsely depressed re sults may occur on samples drawn from patients receiving N-Acetylcysteine (NAC) or Metamizole. Blood Venipuncture / Unknown 01/17/2025 11:50 PM EDT 01/18/2025 12:02 AM EDT us Zeb Gonzalez MD LAB BLOOD ORDERABLES Final Resu lt Performing Organization Address City/[facility]/ZIP Co de Phone Number [facility]
[address] [place] [address], [place] [phone] * Lactate Dehydrogenase (01/17/2025 11:50 PM EDT) LDH 210 135 - 214 U/L 01/18/2025 12:37 AM EDT [facility] Comment:Specimen hemolyzed. Results may be affected. Blood Venipuncture / Unknown 01/17/2025 11:50 PM EDT 01/18/2025 12:02 AM EDT us Zeb Gonzalez MD LAB BLOOD ORDERABLES Final Resu lt [facility]
[address] [place] [address], * (ABNORMAL) Comprehensive Metabolic Panel (01/17/2025 11:50 PM EDT) Glucose 81 65 - 99 mg/dL 01/18/2025 12:36 AM EDT [facility] BUN 4.3(L) 6.0 - 20.0 mg/dL 01/18/2025 12:36 AM EDT [facility] Creatinine 0.46(L) 0.57 - 1.00 mg/dL 01/18/2025 12:36 AM EDT [facility] Sodium 137 136 - 145 mmol/L 01/18/2025 12:36 AM EDT [facility] Potassium 4.0 3.5 - 5.2 mmol/L 01/18/2025 12:36 AM EDT [facility] Comment:Specimen hemolyzed. Result may be falsely elevated. Chloride 105 98 - 107 mmol/L 01/18/2025 12:36 AM EDT [facility] CO2 17.5(L) 22.0 - 29.0 mmol/L 01/18/2025 12:36 AM EDT [facility] Calcium 8.3(L) 8.6 - 10.5 mg/dL 01/18/2025 12:36 AM EDT [facility] Total Protein 6.5 6.0 - 8.5 g/dL 01/18/2025 12:36 AM EDT [facility] Albumin 3.6 3.5 - 5.2 g/dL 01/18/2025 12:36 AM EDT [facility] ALT (SGPT) 10 1 - 33 U/L 01/18/2025 12:36 AM EDT [facility] AST (SGOT) 19 1 - 32 U/L 01/18/2025 12:36 AM EDT [facility] Alkaline Phosphatase 100 39 - 117 U/L 01/18/2025 12:36 AM EDT [facility] Total Bilirubin 0.3 0.0 - 1.2 mg/dL 01/18/2025 12:36 AM EDT [facility] Globulin 2.9 gm/dL 01/18/2025 12:36 AM EDT [facility] Comment:Calculated Result A/G Ratio 1.2 g/dL 01/18/2025 12:36 AM EDT [facility] BUN/Creatinine Ratio 9.3 7.0 - 25.0 01/18/2025 12:36 AM EDT [facility] Anion Gap 14.5 5.0 - 15.0 mmol/L 01/18/2025 12:36 AM T [facility] eGFR 138.1 >60.0 mL/min/1.7 3 01/18/2025 12:36 AM EDT [facility] Blood Venipuncture / Unknown 01/17/2025 11:50 PM EDT 01/18/2025 12:02 AM EDT [facility] - 01/18/2025 12:36 AM EDT GFR [...] MD LAB BLOOD ORDERABLES Final Resu lt [facility]
[address] [place] [address], * Telemetry Scan (01/17/2025) [facility] [place] [place] ECG ORDERABLES Final Result * LABS SCANNED (01/17/2025) [facility] [place] LAB BLOOD ORDERABLES Final Re sult from Last 3 Months Insurance [place] [id number] [facility] Advance Directives * CPR (Attempt to Resuscitate) (Latest Code Status on File) Date Activated Date Inactivated Comments 01/17/2025 11:22 PM 01/20/2025 2:14 PM Question Answer Comments Code Status (Patient has no pulse and is not breathing): CPR (Attempt to Resuscitate) Medical Interventions (Patie nt has pulse or is breathing): Full Support Level Of Support Discussed With: Patient Care Teams Region Manager Relationship Specialty Start Date End Date Destiny Seymour PA [address] [place] [address] [place] [address] PCP - General Physician [employer] 09/14/22
--- OUTSIDE RECORDS SUMMARY | 2025-01-23 16:29 | XMS_ITS | Clinical Summary ---
Author Organization [facility] [place] Address [address] [facility] [address] [place] [address] Phone Care Team Providers Care File Keeper Name Role Phone Unavailable Primary Care Provider Unavailabl e Allergies No known active allergies Active Problems Problem Noted Date Diagnosed Date S/P RF ablation operation for arrhythmia 023 Overview (03/02/2023): EPS, SVT Ablation 11/25/22-Dr. Demetrio Pearson @ [facility] SVT (supraventricular tachycardia) Surgical History Surgery Date Site/Laterality Comments CYST REMOVAL 08/31/2020 - 09/30/2020 Right R Hand Cyst Removal ABLATION OF DYSRHYTHMIC FOCUS 11/25/2022 EPS, SVT Ablation-Dr. Demetrio Pearson @ [facility] Medical History Medical History Date Comments SVT [...]
--- OUTSIDE RECORDS SUMMARY | 2025-01-23 16:30 | XMS_ITS | Patient Health Record ---
Author Organization [facility] Address [address] [place] [id number] Care Team Providers Care Belt Picker Name Role Phone Destiny Seymour Unavailable [phone] Allergies Allergen (clinical drug ingredient) Drug/Non Drug [...] Last Name Dawn Referring Provider Speciality Physician Vp Biology Referred Provider Rheumatology, . Referred Provider Specialty Rheumatology General Notes Destiny Seymour 2023 11:16:04 AM > PT needs an appt with Pepper Bonilla Brynn 02/12/2024 11:44:56 AM > sent referral to Dr. Jacobs via [facility] website Referral Priority Routine Diagnosis 1 Rheumatoid arthritis with positive rheumatoid factor, involving unspecified site (M05.9) Referral Organization [facility] Referring Provider First Name Destiny Referring Provider Last Name Dawn Referring Provider Speciality Physician Vp Biology Referred Provider Rheumatology, . Referred Provider Specialty [...] W/U Status Risk Notes Problem Supraventricular tachycardia (7489985) SVT (supraventricular tachycardia) (I47.1) Active confirmed Problem Paresthesia (03239098) Paresthesia (R20.2) Active confirmed Problem Mixed anxiety and depressive disorder (813640434) Depression with anxiety (F41.8) Active confirmed Problem Thyroid nodule (211575275) Thyroid nodule (E04.1) Active confirmed Problem Panic disorder (112937164) Panic attacks (F41.0) Active confirmed Problem Refractory migraine with aura (420912666) Intractable migraine with aura without status migrainosus (G43.119) Active confirmed Problem Cardiac arrhythmia (263050970) Cardiac arrhythmia, unspecified cardiac arrhythmia type (I49.9) Active confirmed Problem Refractory migraine (528775630) Intractable migraine without status migrainosus, unspecified migraine type (G43.919) Active confirmed Problem Thyromegaly (5304133) Thyromegaly (E01.0) Active confirmed Problem Migraine (81075810) Migraine syn drome (G43.909) Active confirmed Problem Gastroesophageal reflux disease (868234336) Gastroesophageal reflux disease, unspecified whether esophagitis present (K21.9) Active confirmed Problem Rheumatoid arthritis (89858609) Rheumatoid arthritis, involving unspecified site, unspecified whether rheumatoid factor present (M06.9) Active confirmed Problem Rheumatoid arthritis (77637769) Rheumatoid arthritis with positive rheumatoid factor, involving unspecified site (M05.9) Active confirmed Problem Tobacco user (171811827) Vaping nicotine dependence, non-tobacco product (F17.200) Active confirmed Problem Drug-induced insomnia (22190641053436) 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) Active confirmed Problem Compression of brain (88628723) 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) Active confirmed Vital Signs Heart Rate 85 /min 04/24/2024 Blood pressure diastolic 100 mm Hg 04/24/2024 Height 66 in 04/24/2024 Blood pressure systolic 134 mm Hg 04/24/2024 Weight 187.0 lbs 04/24/2024 BMI 30.18 kg/m2 04/24/2024 Encounters Encounter Location Date Provider [facility] [address] [place] [id number] 02/08/2024 Destiny Seymour Gastroesophageal ref lux disease, unspecified whether esophagitis present K21.9 and Rheumatoid arthritis, involving unspecified site, unspecified whether rheumatoid factor present M06.9 [facility] [address] [place] [id number] 04/24/2024 Destiny Seymour Strep pharyngitis J0 2.0 and Rheumatoid arthritis with positive rheumatoid factor, involving unspecified site M05.9 [facility] [address] [place] [id number] 08/01/2024 Destiny Seymour Assessments Encounter Date Diagnosis [...] ultrasound : Transvaginal 07/27/2023 MRA: Head 03/16/2023 Insurance Providers Payer Name Payer Address Payer Phone Subscriber Number Group Number Insured Name Patient Relationship to Insured Coverage Start Date Coverage End Date [facility] [employer] [facility] [address] [place] [address] [id number] FILI PHILLIP Self - patient is [...]
[2025-01-23 20:04] VITALS: BP 142/88; PULSE 77; RESP 16; TEMP 36.7; O2SAT 98
[2025-01-24 00:13] VITALS: BP 137/91; PULSE 75; RESP 16; O2SAT 97
[2025-01-24 04:56] VITALS: BP 130/74; PULSE 82; RESP 17; TEMP 36.8; O2SAT 97
[2025-01-24 07:52] VITALS: BP 162/89; PULSE 75; RESP 16; TEMP 36.8; O2SAT 98
[2025-01-24] MEDS: LABETALOL 100MG TABLET 300 MG PO ×3 (07:52→21:32)
[2025-01-24] MEDS: ASPIRIN 81MG CHEWABLE TABLET 81 MG PO (08:52)
[2025-01-24 08:53] VITALS: BP 141/83
[2025-01-24 09:09] LABS: Hematocrit 32.6 % (37.0-47.0); Hemoglobin 11.3 g/dL (12.2-16.2); Mean Corpuscular HGB Conc 34.7 g/dL (31.8-35.4); Mean Corpuscular Hemoglobin 31.4 pg (27.0-31.2); Mean Corpuscular Volume 90.6 fl (81-99); Platelet Count 232 K/mm3 (142-424); Red Blood Count 3.60 M/mm3 (4.20-5.40); White Blood Count 8.9 K/mm3 (4.8-10.8)
[2025-01-24 09:20] LABS: Alanine Aminotransferase 17 U/L (12-78); Albumin Level 3.3 g/dl (3.5-5.0); Albumin/Globulin Ratio 1.0 (1.1-1.8); Alkaline Phosphatase 121 U/L (38-126); Anion Gap 13.8 mEq/L (5-15); Aspartate Amino Transferase 27 U/L (14-36); Bilirubin,Total 0.3 mg/dl (0.2-1.3); Blood Urea Nitrogen 3 mg/dl (7-17); Calcium 9.1 mg/dl (8.4-10.2); Carbon Dioxide 17 mmol/L (22.0-30.0); Chloride 107 mmol/L (98-107); Creatinine Clearance Estimated 264 mL/min (50-200); Creatinine,Serum 0.50 mg/dl (0.52-1.04); Estimated Glomerular Filt Rate 153 ml/min (>60); GFR (African American) 185 ML/MIN (>60); Globulin 3.2 g/dL (1.3-3.2); Glucose 113 mg/dl (74-100); Potassium 3.8 mmoL/L (3.5-5.1); Sodium 134 mmol/L (136-145); Total Protein,Serum 6.5 g/dl (6.3-8.2)
[2025-01-24] MEDS: FAMOTIDINE 20MG TABLET 20 MG PO (09:23)
[2025-01-24 10:38] LABS: RBC Morphology Normal; Total Cells Counted 100
[2025-01-24 12:44] VITALS: BP 160/98; PULSE 81; RESP 18
--- NOTE | 2025-01-24 13:51 | P.PN_ITS ---
Subjective *Date: 01/24/25 *Time: 13:56 Interval history: Jess is a 24 yo at 36w5d, dated by 6wk US. This is HD#4. She is admitted for elevated BP in the setting of CHTN. She has not had any elevations in BP. This morning she denies any headaches, vision changes. Endorses good movement. Denies any leakage of fluid or vaginal bleeding. Exam Data for Last 24 hours Vital signs and Labs for Last 24 Hours: Temp Pulse Resp BP Pulse Ox O2 Del Method 98.2 F 75 16 141/83 H 98 Room Air 01/24/25 07:52 01/24/25 07:52 01/24/25 07:52 01/24/25 08:53 01/24/25 07:52 01/24/25 07:52 Laboratory Results - last 24 hr 01/24/25 08:55: WBC 8.9, RBC 3.60 L, Hgb 11.3 L, Hct 32.6 L, MCV 90.6, MCH 31.4 H, MCHC 34.7, RDW 12.8, Plt Count 232, MPV 10.1, Neut % (Auto) 81.5 H, Lymph % (Auto) 12.7, [place] % (Auto) 4.5, Eos % (Auto) 0.5, Baso % (Auto) 0.2, Neut # (Auto) 7.2, Lymph # (Auto) 1.1, [place] # (Auto) 0.4, Eos # (Auto) 0.0, Baso # (Auto) 0.0, Total Counted 100, Neutrophils % (Manual) 81 H, Lymphocytes % (Manual) 17, Monocytes % (Manual) 1 L, Eosinophils % (Manual) 1, Platelet Estimate Normal, RBC Morphology Normal, Sodium 134 L, Potassium 3.8, Chloride 107, Carbon Dioxide 17 L, Anion Gap 13.8, BUN 3 L, Creatinine 0.50 L, Estimated Creat Clear 264, Estimated GFR 153, Est GFR ( Amer) 185, Glucose 113 H, Calcium 9.1, Total Bilirubin 0.3, AST 27, ALT 17, Alkaline Phosphatase 121, Total Protein 6.5, Albumin 3.3 L, Globulin 3.2, Albumin/Globulin Ratio 1.0 L I & O for Last 24 hours: Intake & Output 01/21/25 01/22/25 01/23/25 01/24/25 23:59 23:59 23:59 23:59 Weight 211 lb Constitutional Constitutional: no acute distress *Routine HEENT Exam Head: Present normocephalic Eye: Present EOMI and PERRL ENT: Present mucous membranes moist *Routine Neck Exam Neck: Present supple; Absent lymphadenopathy *Routine Respiratory Exam Respiratory: Present CTA bilaterally *Routine Cardiovascular Exam Cardiovascular: Present RRR *Routine Abdominal Exam Abdominal: Present soft and normoactive bowel sounds; Absent tenderness *Routine Extremities Exam Extremities: Absent cyanosis, clubbing or edema Comments: Plus 2 out of 4 bilateral lower extremity reflexes *Routine Skin Exam Skin: Present warm; Absent rash *Routine Neurological Exam Neurological: Present alert and oriented X3 Assessment and Plan *Assessment and plan (1) Chronic hypertension affecting : Status: Acute Category: Medical Code(s): O10.919 - Unspecified pre-existing hypertension complicating , unspecified trimester (2) : Status: Acute Qualifiers: Weeks of gestation: 35 weeks Qualified Code(s): Z3A.35 - 35 weeks gestation of Category: Medical Code(s): Z34.90 - Encounter for supervision of normal , unspecified, unspecified trimester Plan #Chronic hypertension, poorly controlled blood pressures requiring frequent medication dose adjustments - Plan for delivery at 37 weeks gestation unless indicated sooner - PIH labs every 24 hours unless indicated sooner - continue labetalol to 300 mg 3 times a day - Continue nifedipine 30 mg daily - Doing well. no BP elevation and asymptomatic
[2025-01-24 15:03] VITALS: BP 114/73; PULSE 87; RESP 16; TEMP 36.8; O2SAT 98
[2025-01-25] MEDS: LABETALOL 100MG TABLET 300 MG PO ×3 (06:31→22:09)
[2025-01-25 07:30] LABS: Hematocrit 32.3 % (37.0-47.0); Hemoglobin 10.9 g/dL (12.2-16.2); Mean Corpuscular HGB Conc 33.7 g/dL (31.8-35.4); Mean Corpuscular Hemoglobin 30.1 pg (27.0-31.2); Mean Corpuscular Volume 89.2 fl (81-99); Platelet Count 242 K/mm3 (142-424); Red Blood Count 3.62 M/mm3 (4.20-5.40); White Blood Count 9.6 K/mm3 (4.8-10.8)
[2025-01-25 07:44] LABS: Alanine Aminotransferase 16 U/L (12-78); Albumin Level 3.1 g/dl (3.5-5.0); Albumin/Globulin Ratio 1.0 (1.1-1.8); Alkaline Phosphatase 116 U/L (38-126); Anion Gap 12.7 mEq/L (5-15); Aspartate Amino Transferase 19 U/L (14-36); Bilirubin,Total 0.3 mg/dl (0.2-1.3); Blood Urea Nitrogen 4 mg/dl (7-17); Calcium 9.0 mg/dl (8.4-10.2); Carbon Dioxide 18 mmol/L (22.0-30.0); Chloride 107 mmol/L (98-107); Creatinine Clearance Estimated 330 mL/min (50-200); Creatinine,Serum 0.40 mg/dl (0.52-1.04); Estimated Glomerular Filt Rate 198 ml/min (>60); GFR (African American) 239 ML/MIN (>60); Globulin 3.1 g/dL (1.3-3.2); Glucose 89 mg/dl (74-100); Potassium 3.7 mmoL/L (3.5-5.1); Sodium 134 mmol/L (136-145); Total Protein,Serum 6.2 g/dl (6.3-8.2)
--- NOTE | 2025-01-25 08:31 | EXP.PN ---
Subjective *Date: 01/25/25 *Time: 08:31 Interval history: Jess is a 24 yo at 36w6d, dated by 6wk US. This is HD#5. She is admitted for elevated BP in the setting of CHTN. She has not had any elevations in BP. This morning she denies any headaches, vision changes. Endorses good movement. Denies any leakage of fluid or vaginal bleeding. Exam Data for Last 24 hours Vital signs and Labs for Last 24 Hours: Temp Pulse Resp BP Pulse Ox O2 Del Method 98.3 F 87 16 114/73 98 Room Air 01/24/25 15:03 01/24/25 15:03 01/24/25 15:03 01/24/25 15:03 01/24/25 15:03 01/24/25 15:03 Laboratory Results - last 24 hr 01/24/25 08:55: WBC 8.9, RBC 3.60 L, Hgb 11.3 L, Hct 32.6 L, MCV 90.6, MCH 31.4 H, MCHC 34.7, RDW 12.8, Plt Count 232, MPV 10.1, Neut % (Auto) 81.5 H, Lymph % (Auto) 12.7, [place] % (Auto) 4.5, Eos % (Auto) 0.5, Baso % (Auto) 0.2, Neut # (Auto) 7.2, Lymph # (Auto) 1.1, [place] # (Auto) 0.4, Eos # (Auto) 0.0, Baso # (Auto) 0.0, Total Counted 100, Neutrophils % (Manual) 81 H, Lymphocytes % (Manual) 17, Monocytes % (Manual) 1 L, Eosinophils % (Manual) 1, Platelet Estimate Normal, RBC Morphology Normal, Sodium 134 L, Potassium 3.8, Chloride 107, Carbon Dioxide 17 L, Anion Gap 13.8, BUN 3 L, Creatinine 0.50 L, Estimated Creat Clear 264, Estimated GFR 153, Est GFR ( Amer) 185, Glucose 113 H, Calcium 9.1, Total Bilirubin 0.3, AST 27, ALT 17, Alkaline Phosphatase 121, Total Protein 6.5, Albumin 3.3 L, Globulin 3.2, Albumin/Globulin Ratio 1.0 L 01/25/25 07:10: WBC 9.6, RBC 3.62 L, Hgb 10.9 L, Hct 32.3 L, MCV 89.2, MCH 30.1, MCHC 33.7, RDW 12.8, Plt Count 242, MPV 10.3, Neut % (Auto) 76.2, Lymph % (Auto) 15.8, [place] % (Auto) 5.6, Eos % (Auto) 0.6, Baso % (Auto) 0.2, Neut # (Auto) 7.3, Lymph # (Auto) 1.5, [place] # (Auto) 0.5, Eos # (Auto) 0.1, Baso # (Auto) 0.0, Sodium 134 L, Potassium 3.7, Chloride 107, Carbon Dioxide 18 L, Anion Gap 12.7, BUN 4 L D, Creatinine 0.40 L, Estimated Creat Clear 330 H, Estimated GFR 198, Est GFR ( Amer) 239 D, Glucose 89 D, Calcium 9.0, Total Bilirubin 0.3, AST 19 D, ALT 16, Alkaline Phosphatase 116, Total Protein 6.2 L, Albumin 3.1 L, Globulin 3.1, Albumin/Globulin Ratio 1.0 L Constitutional Constitutional: no acute distress *Routine HEENT Exam Head: Present normocephalic Eye: Present EOMI and PERRL ENT: Present mucous membranes moist *Routine Neck Exam Neck: Present supple; Absent lymphadenopathy *Routine Respiratory Exam Respiratory: Present CTA bilaterally *Routine Cardiovascular Exam Cardiovascular: Present RRR *Routine Abdominal Exam Abdominal: Present soft and normoactive bowel sounds; Absent tenderness *Routine Extremities Exam Extremities: Absent cyanosis, clubbing or edema Comments: Plus 2 out of 4 bilateral lower extremity reflexes *Routine Skin Exam Skin: Present warm; Absent rash *Routine Neurological Exam Neurological: Present alert and oriented X3 Assessment and Plan *Assessment and plan (1) Chronic hypertension affecting : Status: Acute Category: Medical Code(s): O10.919 - Unspecified pre-existing hypertension complicating , unspecified trimester (2) : Status: Acute Qualifiers: Weeks of gestation: 35 weeks Qualified Code(s): Z3A.35 - 35 weeks gestation of Category: Medical Code(s): Z34.90 - Encounter for supervision of normal , unspecified, unspecified trimester Plan #Chronic hypertension, poorly controlled blood pressures requiring frequent medication dose adjustments - Plan for delivery at 37 weeks gestation unless indicated sooner - PIH labs every 24 hours unless indicated sooner - continue labetalol to 300 mg 3 times a day - Continue nifedipine 30 mg daily - Doing well. no BP elevation and asymptomatic - Plan for IOL tomorrow
[2025-01-25] MEDS: ASPIRIN 81MG CHEWABLE TABLET 81 MG PO (08:59)
[2025-01-25 10:05] LABS: Total Cells Counted 100
[2025-01-25 10:06] LABS: RBC Morphology Normal
[2025-01-25 20:38] VITALS: BP 130/83; PULSE 89; RESP 17; TEMP 36.8; O2SAT 97
[2025-01-25] MEDS: ACETAMINOPHEN 325MG TAB 650 MG PO (22:33)
[2025-01-26] VITALS: BP 158/89; PULSE 77; RESP 18; TEMP 36.7; O2SAT 96
[2025-01-26 04:44] VITALS: BP 137/92; PULSE 78; RESP 18; TEMP 36.9; O2SAT 98
[2025-01-26] MEDS: LABETALOL 100MG TABLET 300 MG PO ×3 (07:08→21:08)
[2025-01-26 07:25] LABS: Hematocrit 32.6 % (37.0-47.0); Hemoglobin 11.2 g/dL (12.2-16.2); Mean Corpuscular HGB Conc 34.4 g/dL (31.8-35.4); Mean Corpuscular Hemoglobin 31.1 pg (27.0-31.2); Mean Corpuscular Volume 90.6 fl (81-99); Platelet Count 248 K/mm3 (142-424); Red Blood Count 3.60 M/mm3 (4.20-5.40); White Blood Count 9.6 K/mm3 (4.8-10.8)
[2025-01-26 07:47] LABS: Alanine Aminotransferase 13 U/L (12-78); Albumin Level 3.0 g/dl (3.5-5.0); Albumin/Globulin Ratio 1.0 (1.1-1.8); Alkaline Phosphatase 123 U/L (38-126); Anion Gap 10.9 mEq/L (5-15); Aspartate Amino Transferase 21 U/L (14-36); Bilirubin,Total 0.2 mg/dl (0.2-1.3); Blood Urea Nitrogen 6 mg/dl (7-17); Calcium 9.1 mg/dl (8.4-10.2); Carbon Dioxide 20 mmol/L (22.0-30.0); Chloride 107 mmol/L (98-107); Creatinine Clearance Estimated 264 mL/min (50-200); Creatinine,Serum 0.50 mg/dl (0.52-1.04); Estimated Glomerular Filt Rate 153 ml/min (>60); GFR (African American) 185 ML/MIN (>60); Globulin 3.1 g/dL (1.3-3.2); Glucose 76 mg/dl (74-100); Potassium 3.9 mmoL/L (3.5-5.1); Sodium 134 mmol/L (136-145); Total Protein,Serum 6.1 g/dl (6.3-8.2)
[2025-01-26 08:30] VITALS: BP 137/89; PULSE 94; RESP 18; TEMP 36.6
[2025-01-26] MEDS: ASPIRIN 81MG CHEWABLE TABLET 81 MG PO (08:33)
[2025-01-26 08:49] LABS: Total Cells Counted 100
[2025-01-26 08:50] LABS: RBC Morphology Normal
--- NOTE | 2025-01-26 13:17 | P.PN_ITS ---
Subjective *Date: 01/26/25 *Time: 13:17 Interval history: Jess is a 24 yo at 37w0d, dated by 6wk US. This is HD#6. She is admitted for elevated BP in the setting of CHTN. She has not had any elevations in BP. This morning she denies any headaches, vision changes. Endorses good movement. Denies any leakage of fluid or vaginal bleeding. We will start her induction today Exam Data for Last 24 hours Vital signs and Labs for Last 24 Hours: Temp Pulse Resp BP Pulse Ox O2 Del Method 97.8 F 94 H 18 137/89 98 Room Air 01/26/25 08:30 01/26/25 08:30 01/26/25 08:30 01/26/25 08:30 01/26/25 04:44 01/26/25 04:44 Laboratory Results - last 24 hr 01/26/25 06:28: WBC 9.6, RBC 3.60 L, Hgb 11.2 L, Hct 32.6 L, MCV 90.6, MCH 31.1, MCHC 34.4, RDW 12.8, Plt Count 248, MPV 10.5 H, Neut % (Auto) 74.2, Lymph % (Auto) 17.4, [place] % (Auto) 5.9, Eos % (Auto) 0.7, Baso % (Auto) 0.4, Neut # (Auto) 7.1, Lymph # (Auto) 1.7, [place] # (Auto) 0.6, Eos # (Auto) 0.1, Baso # (Auto) 0.0, Total Counted 100, Neutrophils % (Manual) 82 H, Lymphocytes % (Manual) 16, Monocytes % (Manual) 2, Platelet Estimate Normal, RBC Morphology Normal, Sodium 134 L, Potassium 3.9, Chloride 107, Carbon Dioxide 20 L, Anion Gap 10.9, BUN 6 L D, Creatinine 0.50 L D, Estimated Creat Clear 264, Estimated GFR 153, Est GFR ( Amer) 185 D, Glucose 76, Calcium 9.1, Total Bilirubin 0.2, AST 21, ALT 13, Alkaline Phosphatase 123, Total Protein 6.1 L, Albumin 3.0 L, Globulin 3.1, Albumin/Globulin Ratio 1.0 L Constitutional Constitutional: no acute distress *Routine HEENT Exam Head: Present normocephalic Eye: Present EOMI and PERRL ENT: Present mucous membranes moist *Routine Neck Exam Neck: Present supple; Absent lymphadenopathy *Routine Respiratory Exam Respiratory: Present CTA bilaterally *Routine Cardiovascular Exam Cardiovascular: Present RRR *Routine Abdominal Exam Abdominal: Present soft and normoactive bowel sounds; Absent tenderness *Routine Extremities Exam Extremities: Absent cyanosis, clubbing or edema Comments: Plus 2 out of 4 bilateral lower extremity reflexes *Routine Skin Exam Skin: Present warm; Absent rash *Routine Neurological Exam Neurological: Present alert and oriented X3 Assessment and Plan *Assessment and plan (1) Chronic hypertension affecting : Status: Acute Category: Medical Code(s): O10.919 - Unspecified pre-existing hypertension complicating , unspecified trimester (2) : Status: Acute Qualifiers: Weeks of gestation: 35 weeks Qualified Code(s): Z3A.35 - 35 weeks gestation of Category: Medical Code(s): Z34.90 - Encounter for supervision of normal , unspecified, unspecified trimester Plan #Chronic hypertension, poorly controlled blood pressures requiring frequent medication dose adjustments - Start induction today with 50 mcg every 6 hours of p.o. Cytotec - PIH labs every 24 hours unless indicated sooner - continue labetalol to 300 mg 3 times a day - Continue nifedipine 30 mg daily - Doing well. no BP elevation and asymptomatic - SVE: 50/-3/posterior/moderate consistency
[2025-01-26] MEDS: BUTORPHANOL TARTRATE 1 MG/ML VIAL IV (22:45)
[2025-01-26] MEDS: ONDANSETRON 4MG/2ML VIAL 4 MG IV (23:23)
[2025-01-27] VITALS (25 sets, daily range): BP systolic 134–198; BP diastolic 76–118; PULSE 66–95; RESP 14–18; TEMP 36.6–36.8; O2SAT 96–98
[2025-01-27] MEDS: BUTORPHANOL TARTRATE 1 MG/ML VIAL IV ×2 (04:45→06:58)
[2025-01-27] MEDS: LABETALOL 5MG/ML 20ML MDV 20 MG IV (05:10)
[2025-01-27] MEDS: LABETALOL 100MG TABLET 300 MG PO ×2 (05:16→21:12)
[2025-01-27] MEDS: DEXTROSE 5%-LACTATED RINGERS 1,000 ML 125 ML IV (05:22)
[2025-01-27] MEDS: OXYTOCIN/RINGERS LACTATE 30 UNITS/500 ML BAG IV (05:53)
[2025-01-27 07:03] LABS: Hematocrit 33.1 % (37.0-47.0); Hemoglobin 11.4 g/dL (12.2-16.2); Mean Corpuscular HGB Conc 34.4 g/dL (31.8-35.4); Mean Corpuscular Hemoglobin 31.0 pg (27.0-31.2); Mean Corpuscular Volume 89.9 fl (81-99); Platelet Count 252 K/mm3 (142-424); Red Blood Count 3.68 M/mm3 (4.20-5.40); White Blood Count 11.5 K/mm3 (4.8-10.8)
[2025-01-27] MEDS: LABETALOL 5MG/ML 20ML MDV 40 MG IV ×2 (07:03→14:30)
[2025-01-27 07:33] LABS: Alanine Aminotransferase 15 U/L (12-78); Albumin Level 3.6 g/dl (3.5-5.0); Albumin/Globulin Ratio 1.4 (1.1-1.8); Alkaline Phosphatase 122 U/L (38-126); Anion Gap 12.7 mEq/L (5-15); Aspartate Amino Transferase 24 U/L (14-36); Bilirubin,Total 0.2 mg/dl (0.2-1.3); Blood Urea Nitrogen 5 mg/dl (7-17); Calcium 9.3 mg/dl (8.4-10.2); Carbon Dioxide 19 mmol/L (22.0-30.0); Chloride 108 mmol/L (98-107); Creatinine Clearance Estimated 264 mL/min (50-200); Creatinine,Serum 0.50 mg/dl (0.52-1.04); Estimated Glomerular Filt Rate 153 ml/min (>60); GFR (African American) 185 ML/MIN (>60); Globulin 2.6 g/dL (1.3-3.2); Glucose 89 mg/dl (74-100); Potassium 3.7 mmoL/L (3.5-5.1); Sodium 136 mmol/L (136-145); Total Protein,Serum 6.2 g/dl (6.3-8.2)
[2025-01-27] MEDS: LACTATED RINGERS 1000ML 1,000 ML 500 ML IV (08:32)
[2025-01-27] MEDS: ACETAMINOPHEN 325MG TAB 650 MG PO (09:29)
--- NOTE | 2025-01-27 09:46 | EXP.LABOR.NO ---
Labor Note Subjective: Date: 01/27/25 Time: 08:30 regular contraction Objective: NST:: Reactive Contractions:: every 2-3 minutes Cervical Dilation:: 2 Effacement:: 50% Station: -2 Membranes: artificially ruptured Comment:: I ruptured a member clear fluid. Fetus: Monitoring?: Yes monitoring type:: External Assessment: Labor progressing?: Yes Cephalopelvic disproportion?: No Plan: Anesthesia for epidural?: Yes Continue to labor down?: Yes Plan for ?: No Continue to monitor?: Yes Start pushing?: No Comment:: She is having regular contractions and her cervix is soft, 2 cm and station -2. I have ruptured her membranes and there was clear fluid. We will plan for a vaginal delivery.
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
[2025-01-27 10:38] LABS: RBC Morphology Normal; Total Cells Counted 100
--- NOTE | 2025-01-27 11:47 | P.PN_ITS ---
Subjective *Date: 01/27/25 *Time: 11:47 Interval history: He had a prolonged deceleration for 5 to 6 minutes into the 60s 70s. She really has not changed her cervix at all. Remains at 2, 50% and Station -2. As result of this we have elected to perform an emergency section for the nonreassuring heart rate tracing. The [id number] variability is also minimal. Medical Exam Vital signs and Labs for Last 24 Hours: Vital Signs BP 01/27/25 09:31 143/85 H 01/27/25 07:03 180/90 H 01/27/25 05:40 134/86 01/27/25 05:10 170/101 H Laboratory Results - last 24 hr 01/26/25 13:50: Blood Type O Positive, Antibody Screen Negative 01/27/25 06:20: WBC 11.5 H, RBC 3.68 L, Hgb 11.4 L, Hct 33.1 L, MCV 89.9, MCH 31.0, MCHC 34.4, RDW 13.1, Plt Count 252, MPV 10.6 H, Neut % (Auto) 79.8, Lymph % (Auto) 12.4, [place] % (Auto) 6.2, Eos % (Auto) 0.3, Baso % (Auto) 0.3, Neut # (Auto) 9.2 H, Lymph # (Auto) 1.4, [place] # (Auto) 0.7, Eos # (Auto) 0.0, Baso # (Auto) 0.0, Total Counted 100, Neutrophils % (Manual) 73, Lymphocytes % (Manual) 24, Monocytes % (Manual) 1 L, Eosinophils % (Manual) 1, Basophils % (Manual) 1.0, Platelet Estimate Normal, RBC Morphology Normal, Sodium 136, Potassium 3.7, Chloride 108 H, Carbon Dioxide 19 L, Anion Gap 12.7, BUN 5 L, Creatinine 0.50 L, Estimated Creat Clear 264, Estimated GFR 153, Est GFR ( Amer) 185, Glucose 89, Calcium 9.3, Total Bilirubin 0.2, AST 24, ALT 15, Alkaline Phosphatase 122, Total Protein 6.2 L, Albumin 3.6 D, Globulin 2.6, Albumin/Globulin Ratio 1.4 Head: Present atraumatic Neck: Present normal inspection Assessment and Plan *Assessment and plan (1) Chronic hypertension with superimposed preeclampsia: Problem Comment: 24 hour urine: 300mg on 12/01/24 (150mg on 10/19/24). UPC at 34 weeks 2 days: 0.095 Status: Acute Category: Medical Code(s): O11.9 - Pre-existing hypertension with pre-eclampsia, unspecified trimester (2) Chronic hypertension affecting : Status: Acute Category: Medical Code(s): O10.919 - Unspecified pre-existing hypertension complicating , unspecified trimester (3) heart rate/rhythm abnormality affecting management of mother: Status: Acute Category: Medical Code(s): O36.8390 - Maternal care for abnormalities of the heart rate or rhythm, unspecified trimester, not applicable or unspecified Plan We will go ahead with an emergency section for the nonreassuring heart rate tracing and lack of progress. We discussed the risks of surgery that includes bleeding, infection, injuries to the bowel and bladder. We discussed the rare risk of DVT. All questions were answered and consents were signed. The patient, her mother and were in the room at the time of this discussion.
--- NOTE | 2025-01-27 12:56 | EXP.OP.NOTE ---
Date of procedure: 01/27/25 Pre-op Diagnosis:: Term , -induced hypertension, nonreassuring heart rate tracing Post-op Diagnosis:: Term , -induced hypertension, nonreassuring heart rate tracing, nuchal cord. Procedure performed:: Emergency lower segment transverse variance Surgeon:: Oliverio Amanda MD Medical Staffing Coordinator(s):: Dr. Jones HVAC CONTROLS TECHNICIAN:: Era Rea Anesthesia: GETA Estimated blood loss (mL): 300 Clinical Note:: She is a 24-year-old 1 para 0 at 37 weeks gestational age. She has been followed for chronic hypertension as well as superimposed -induced hypertension. At 37 weeks we elected to induce her labor. She was given 2 doses of Cytotec overnight and then started on IV oxytocin this morning. She subsequently had her membranes ruptured and received an epidural. She had a prolonged deceleration of the baby's heartbeat into the 60s and since she was still only 2 cm we elected to perform an emergent lower segment transverse section for nonreassuring heart rate tracing. The risks and benefits of surgery discussed with the patient and her family prior to surgery. Operative findings:: She did a liveborn female child at 1219 in the morning of January 27, 2025. The baby had Apgars of 4 at 1 minute and 7 at 5 minutes. Her pH was 7.32. She had a nuchal cord x 1. Operative note:: She was taken to the operating room where epidural anesthesia was found be inadequate. As a result of this we elected to perform general anesthesia. She was prepped and draped in normal sterile fashion in the supine position. A Oconnell catheter was in the bladder. A Pfannenstiel skin incision was made with knife then carried through to the underlying layer of fascia with cautery. The fascia was opened in the midline with cautery and extended laterally using Burrell scissors. Jaycob clamps were applied to the superior aspect of the fascial incision which was tented up and the underlying rectus muscles dissected off using cautery. The Jaycob clamps were then applied to the inferior aspect of the fascial incision which in a similar fashion was tented up and the underlying rectus muscles dissected off using cautery. The rectus muscles were then in the midline, the peritoneum identified, and entered sharply with Metzenbaum scissors.. An Manny retractor was then inserted into the abdominal cavity. Bladder peritoneum was opened midline extended laterally using Metzenbaum scissors. Transverse incision was made through the uterine muscle through to the amnion. This incision was then extended superiorly and inferiorly using the fingers as traction. The amnion was entered sharply with knife. There was clear amniotic fluid. The infant's head was then delivered atraumatically. There was a loose nuchal cord which was easily reduced. This was followed by the anterior shoulder and the rest of the 's body atraumatically. The oropharynx and nasopharynx were bulb suctioned. The cord was then doubly clamped and cut. The infant was then handed off to Dr. Giron who assigned Apgars of 4 at 1 minute and 7 at 5 minutes. We then obtained cord blood. We obtained cord pH and the pH was 7.32. Using gentle traction on the cord and fundal massage I was able to easily deliver the placenta intact. It had a normal three-vessel cord. The uterus was then cleared of clots and debris . The uterine incision was then closed using running 0 Vicryl suture in a locked fashion. A second layer of the same suture was used to imbricate the first layer. The gutters and cul-de-sac were then cleared of clots and debris . Once again hemostasis was assured. I elected to place a large piece of Gelfoam along the uterine incision. The peritoneum was then closed with 2-0 Vicryl suture followed by reapproximation of the rectus muscle using 0 Vicryl suture. The fascia was closed using running #1 Vicryl suture. The subcutaneous tissues were then irrigated with warm water followed by closure Melisa's fascia using running 2-0 Monocryl suture. The skin was closed with absorbable aylin. I then cleaned the skin with Hibiclens. Sterile dressings were applied. Anesthesia then performed a tap block under ultrasound guidance. She tolerated the procedure well and was taken to the recovery room in excellent condition. All sponges, instrument and needle counts were correct. Estimated blood loss was approximately 300 mL.. Condition: stable Disposition: PACU Specimens:: Placenta was sent to pathology. Complications:: None
[2025-01-27] MEDS: KETOROLAC 30MG/ML VIAL 60 MG IV (13:35)
--- NOTE | 2025-01-27 13:38 | P.PNANES_ITS ---
[facility] Anesthesia Record Part I Anesthesia Record I Intake, IV Amount: 1,500 Hydration: Adequate Estimated blood loss (mL): 500 Urine output (mL): 400 Blood Pressure: 180/90 SaO2: 97 Pulse Rate: 75 Airway Patency: Patent Respiratory Rate: 18 Temperature: 98 F Patient is:: Awake, Drowsy, Nasal O2 and Stable Stable to PACU at:: 13:39
[2025-01-27] MEDS: LABETALOL 20MG/4ML SYRINGE 20 MG IV (13:50)
--- NOTE | 2025-01-27 14:06 | SUR.OPER ---
patient brought to OR for emergent c section. anesthesia decided it was within the patients best interest to sedate and intubate for procedure. post c section bleeding was noted when patient was turned for epidural to be discontinued. heavy bleeding noted when patient turned on left side. immediate fundal massage was started and MD notified. fundus was -1 of Umbilicus, firm with massage, with active trickling. MD ordered 600mg of cytotec rectally and memo at bedside to be inserted upon MD arrival. patient stable and transported to recovery. report given to GREGG Patterson.
[2025-01-27 14:20] LABS: Hematocrit 33.0 % (37.0-47.0); Hemoglobin 11.0 g/dL (12.2-16.2); Immature Granulocytes % 0.6 %; Mean Corpuscular HGB Conc 33.3 g/dL (31.8-35.4); Mean Corpuscular Hemoglobin 30.1 pg (27.0-31.2); Mean Corpuscular Volume 90.2 fl (81-99); Nucleated Red Blood Cells % 0 %; Platelet Count 242 K/mm3 (142-424); Red Blood Count 3.66 M/mm3 (4.20-5.40); Red Cell Distribution Width-SD 42.5 fL; White Blood Count 17.4 K/mm3 (4.8-10.8)
[2025-01-27 14:25] LABS: Magnesium 1.4 mg/dl (1.6-2.3)
--- NOTE | 2025-01-27 14:39 | SUR.PHASEI ---
1330- report received from OR staff (Marisela Xavier RN). Patient still drowsy and oral airway present. Dressing has noticeable drainage that is serosanguineous. ELEUTERIO device in place and connected to suction at 80mmhg. Blood noticed in tubing but nothing in suction canister. Oconnell in place. VSS but BP rising, 1335- VO given by Martínez Rea CRNA to give 30mg of Toradol IM, and 30 mg Toradol IV NOW. VO repeated and correct. See MAR for administration. 1350- patients BP still hanging out around 195-[address] Dee called and notified. VO given to administer 20 mg IV labetalol NOW, then to call OB for further instructions. Vo repeated and correct. See MAR for administration. 1357- this RN called OBantonette with [facility] in regards to next steps. This RN was told not to move patient until she is 160's for systolic blood pressure. COninuing to monitor patietns blood pressure Q3 minutes. 1403- lab at the BS drawing blood 1407- Dr dee contacted about BP again (186/106) and asked if he wanted to give her more labetalol or take her upstairs for continues care. VO given to take her upstairs and we will take care of it up there . VO repeated and correct. report called to OB. Spoke with Arelis Santos RN. Patient remains stable at this time besides ongoing hypertension that is being addressed. Patient taken up by this RN and Laney Reece RN to the floor. 1415- patient arrived to floor and placed on monitors. Systolic in the 160's. ELEUTERIO device placed back on suction. Oconnell emptied at BS- 1100 for UOP.
[2025-01-27] MEDS: OXYTOCIN/RINGERS LACTATE 30 UNITS/500 ML BAG 40 UNITS IV (14:57)
[2025-01-27] MEDS: MAGNESIUM SULFATE IN WATER 4 GM/50 ML PIGGYBACK IV (15:09)
[2025-01-27] MEDS: LABETALOL 5MG/ML 20ML MDV 80 MG IV (15:16)
[2025-01-27] MEDS: HYDRALAZINE 20MG/ML VIAL 10 MG IV (15:29)
[2025-01-27] MEDS: MAGNESIUM SULFATE IN WATER 20 GM/500 ML IV.SOLN IV (15:31)
[2025-01-27] MEDS: LACTATED RINGERS 1000ML 1,000 ML 75 ML IV (15:31)
[2025-01-27] MEDS: HYDROMORPHONE 2MG/ML SYRINGE 1 MG IV ×2 (16:03→22:06)
[2025-01-27] MEDS: KETOROLAC 30MG/ML VIAL 30 MG IV (20:01)
[2025-01-27] MEDS: ACETAMINOPHEN 500MG TAB 1000 MG PO (20:02)
[2025-01-27] MEDS: SENNA 8.6MG TABLET 8.6 MG PO (20:03)
[2025-01-27] MEDS: SIMETHICONE 80MG CHEWABLE TABLET 160 MG PO (20:03)
[2025-01-28] MEDS: KETOROLAC 30MG/ML VIAL 30 MG IV ×3 (02:00→14:45)
[2025-01-28] MEDS: ACETAMINOPHEN 500MG TAB 1000 MG PO ×4 (02:00→20:18)
[2025-01-28] MEDS: SIMETHICONE 80MG CHEWABLE TABLET 160 MG PO ×4 (02:00→20:18)
[2025-01-28] MEDS: MAGNESIUM SULFATE IN WATER 20 GM/500 ML IV.SOLN IV ×2 (02:01→12:29)
[2025-01-28] MEDS: OXYCODONE 5MG IMMEDIATE RELEASE TABLET 10 MG PO ×2 (05:27→23:55)
[2025-01-28] MEDS: LABETALOL 100MG TABLET 300 MG PO ×3 (05:27→21:35)
[2025-01-28] MEDS: ONDANSETRON 4MG/2ML VIAL 4 MG IV ×2 (05:28→13:11)
[2025-01-28 06:14] LABS: Hematocrit 29.5 % (37.0-47.0); Hemoglobin 10.1 g/dL (12.2-16.2)
[2025-01-28 06:31] LABS: Magnesium 4.9 mg/dl (1.6-2.3)
--- NOTE | 2025-01-28 07:39 | EXP.PN ---
Subjective *Date: 01/28/25 *Time: 10:53 Interval history: Jess is a 24-year-old postoperative day #1 following a primary low-transverse delivery at 37 weeks 0 days gestation. She was delivered secondary to chronic hypertension with labile blood pressures. Postoperatively she had severe range blood pressures and was a started on magnesium. Currently blood pressures are 120s to 130s over 60s. Her last severe range blood pressure is 173/93 and 01/19/2025 at 1524 this morning she denies any headaches, vision changes, right upper quadrant pain. She is sitting up in bed and doing well. States that her lower extremity strength and sensation are slowly coming back from her . -Reports pain is well-controlled -Reports she is tolerating p.o. without nausea or vomiting. -Reports her lochia is scant. -Undecided on contraception -She is breast-feeding and supplementing her female infant - Voiding well, continue measuring weakness -Denies chest pain shortness of breath or pain in her legs. No further complaints at this time. Exam Data for Last 24 hours Vital signs and Labs for Last 24 Hours: Temp Pulse Resp BP Pulse Ox O2 Del Method 98.2 F 87 16 137/79 97 Room Air 01/27/25 14:00 01/27/25 18:37 01/27/25 18:37 01/27/25 18:37 01/27/25 18:37 01/27/25 18:37 Laboratory Results - last 24 hr 01/26/25 13:50: Blood Type O Positive, Antibody Screen Negative, Crossmatch (AHG) See Detail 01/27/25 06:20: Total Counted 100, Neutrophils % (Manual) 73, Lymphocytes % (Manual) 24, Monocytes % (Manual) 1 L, Eosinophils % (Manual) 1, Basophils % (Manual) 1.0, Platelet Estimate Normal, RBC Morphology Normal 01/27/25 12:27: Cord ABG pH 7.32 L 01/27/25 14:09: WBC 17.4 H D, RBC 3.66 L, Hgb 11.0 L, Hct 33.0 L, MCV 90.2, MCH 30.1, MCHC 33.3, RDW 13.1, Plt Count 242, MPV 10.4, Neut % (Auto) 92.2 H, Lymph % (Auto) 3.9 L, [place] % (Auto) 2.9, Eos % (Auto) 0.1, Baso % (Auto) 0.3, Neut # (Auto) 16.0 H, Lymph # (Auto) 0.7, [place] # (Auto) 0.5, Eos # (Auto) 0.0, Baso # (Auto) 0.1, Magnesium 1.4 L 01/28/25 06:00: Hgb 10.1 L, Hct 29.5 L, Magnesium 4.9 H D I & O for Last 24 hours: Intake & Output 01/25/25 01/26/25 01/27/25 01/28/25 23:59 23:59 23:59 23:59 Intake Total 1970 / 1970 Output Total 700 / 700 2750 / 2750 Balance 1271 / 1271 -2750 / -2750 Narrative: General: patient is alert oriented in no acute distress and responds appropriately to questions. Appears to be in minimal pain. Sitting up in the bed. HEENT: NCAT, EOMI, moist mucous membranes, neck supple with full ROM Cardiovascular: RRR +S1/S2, no murmurs or rubs Pulmonary: Clear to auscultation bilaterally, nonlabored breathing, symmetric chest rise Abdominal: Fundus at the umbilicus, firm, and tenderness appropriate for the period. Extremities: trace edema, no tenderness or cyanosis noted. +2/4 patella reflexes bilaterally. At first 1/4 but on second attempt appropriate response. Skin: Normal turgor, intact, warm. Negative for erythema, pallor, petechia, or lesions. Incision healing well. Neurologic: Negative for sensory or motor deficit Psychiatric: Normal affect, normal thought process, good judgment and insight, no depression or anxious mood appreciated. Assessment and Plan *Assessment and plan (1) heart rate/rhythm abnormality affecting management of mother: Status: Acute Category: Medical Code(s): O36.8390 - Maternal care for abnormalities of the heart rate or rhythm, unspecified trimester, not applicable or unspecified (2) Chronic hypertension with superimposed preeclampsia: Problem Comment: 24 hour urine: 300mg on 12/01/24 (150mg on 10/19/24). UPC at 34 weeks 2 days: 0.095 Status: Acute Category: Medical Code(s): O11.9 - Pre-existing hypertension with pre-eclampsia, unspecified trimester (3) Chronic hypertension affecting : Status: Acute Category: Medical Code(s): O10.919 - Unspecified pre-existing hypertension complicating , unspecified trimester (4) : Status: Acute Qualifiers: Weeks of gestation: 35 weeks Qualified Code(s): Z3A.35 - 35 weeks gestation of Category: Medical Code(s): Z34.90 - Encounter for supervision of normal , unspecified, unspecified trimester (5) HTN (hypertension): Status: Acute Qualifiers: Hypertension type: primary hypertension Qualified Code(s): I10 - Essential (primary) hypertension Category: Medical Code(s): I10 - Essential (primary) hypertension (6) delivery delivered: Status: Acute Category: Medical Code(s): O82 - Encounter for delivery without indication Plan Stable. POD#1 s/p PLTCS -Doing well. VSS. Serial lochia and fundal checks. -Continue with perineal ice packs for discomfort -, female infant -Contraception: undecided -Follow-up 1 weeks for routine visit -Dispo: home in 1-3 days pending mother/ status #anemia -Hemoglobin: 11.0--> 10.1 - asymptomatic anemia noted. Vitals stable. Continue monitoring. DC with Fe -O+/antibody negative #Chronic Hypertension with severe range blood pressure #Chronic hypertension, poorly controlled blood pressures requiring frequent medication dose adjustments - [facility] labs every 24 hours unless indicated sooner. LAbs penidng this morning - BP logs reviewed 120-130/60s - Continue 24 hours of magnesium - continue labetalol to 300 mg 3 times a day - Continue nifedipine 30 mg daily - Doing well. no BP elevation and asymptomatic
[2025-01-28] MEDS: ASPIRIN 81MG CHEWABLE TABLET 81 MG PO (08:51)
[2025-01-28 11:09] LABS: Hematocrit 28.5 % (37.0-47.0); Hemoglobin 9.4 g/dL (12.2-16.2); Mean Corpuscular Hemoglobin 30.3 pg (27.0-31.2); Mean Corpuscular Volume 91.9 fl (81-99); Red Blood Count 3.10 M/mm3 (4.20-5.40); White Blood Count 11.5 K/mm3 (4.8-10.8)
[2025-01-28 11:10] LABS: Immature Granulocytes % 0.8 %; Mean Corpuscular HGB Conc 33.0 g/dL (31.8-35.4); Nucleated Red Blood Cells % 0 %; Platelet Count 268 K/mm3 (142-424); Red Cell Distribution Width-SD 42.6 fL
[2025-01-28 11:26] LABS: Anion Gap 9.8 mEq/L (5-15); Carbon Dioxide 22 mmol/L (22.0-30.0); Chloride 105 mmol/L (98-107); Potassium 3.8 mmoL/L (3.5-5.1); Sodium 133 mmol/L (136-145)
[2025-01-28 11:27] LABS: Alanine Aminotransferase 16 U/L (12-78); Albumin Level 3.1 g/dl (3.5-5.0); Albumin/Globulin Ratio 1.3 (1.1-1.8); Aspartate Amino Transferase 25 U/L (14-36); Bilirubin,Total 0.2 mg/dl (0.2-1.3); Blood Urea Nitrogen 8 mg/dl (7-17); Calcium 8.3 mg/dl (8.4-10.2); Creatinine Clearance Estimated 189 mL/min (50-200); Creatinine,Serum 0.70 mg/dl (0.52-1.04); Estimated Glomerular Filt Rate 104 ml/min (>60); GFR (African American) 125 ML/MIN (>60); Globulin 2.4 g/dL (1.3-3.2); Glucose 88 mg/dl (74-100); Total Protein,Serum 5.5 g/dl (6.3-8.2)
[2025-01-28 11:28] LABS: Alkaline Phosphatase 107 U/L (38-126)
[2025-01-28] MEDS: HYDROMORPHONE 2MG/ML SYRINGE 1 MG IV (12:29)
[2025-01-28 13:57] LABS: Magnesium 5.7 mg/dl (1.6-2.3)
[2025-01-28] MEDS: FAMOTIDINE 20MG TABLET 20 MG PO (14:55)
[2025-01-28 18:13] LABS: Magnesium 5.3 mg/dl (1.6-2.3)
--- NOTE | 2025-01-28 19:07 | PC.NURSE ---
Report given to MojganRN
[2025-01-28 20:05] VITALS: BP 122/70; PULSE 90; RESP 18; TEMP 36.6; O2SAT 97
[2025-01-28] MEDS: IBUPROFEN 400 MG TABLET 800 MG PO (20:17)
[2025-01-28 21:32] VITALS: BP 126/67; PULSE 76
[2025-01-29] MEDS: ACETAMINOPHEN 500MG TAB 1000 MG PO ×4 (01:37→21:27)
[2025-01-29] MEDS: IBUPROFEN 400 MG TABLET 800 MG PO ×2 (04:11→11:20)
[2025-01-29 05:25] VITALS: BP 152/91; PULSE 64; RESP 20; TEMP 36.7; O2SAT 98
[2025-01-29] MEDS: SIMETHICONE 80MG CHEWABLE TABLET 160 MG PO ×3 (05:43→21:27)
[2025-01-29] MEDS: LABETALOL 100MG TABLET 300 MG PO ×3 (05:44→21:27)
[2025-01-29 06:38] VITALS: BP 119/71; PULSE 84
[2025-01-29] MEDS: OXYCODONE 5MG IMMEDIATE RELEASE TABLET 10 MG PO ×3 (07:47→19:47)
[2025-01-29 08:00] VITALS: BP 128/76; PULSE 78; RESP 18; TEMP 36.6; O2SAT 98
[2025-01-29] MEDS: ASPIRIN 81MG CHEWABLE TABLET 81 MG PO (09:24)
[2025-01-29 12:00] VITALS: BP 137/74
[2025-01-29 14:58] VITALS: BP 149/82; PULSE 83; RESP 18; O2SAT 98
[2025-01-29] MEDS: SENNA 8.6MG TABLET 8.6 MG PO (15:03)
--- NOTE | 2025-01-29 15:50 | EXP.PN ---
Subjective *Date: 01/29/25 *Time: 15:50 Interval history: Jess is a 24-year-old postoperative day #2 following a primary low-transverse delivery at 37 weeks 0 days gestation. She was delivered secondary to chronic hypertension with labile blood pressures. Postoperatively she had severe range blood pressures and was a started on magnesium. Currently blood pressures are 140/80s. She denies any headaches, vision changes, right upper quadrant pain. She is sitting up in bed and doing well. States that her lower extremity strength and sensation are slowly coming back from her . -Reports pain is well-controlled, slighlty increased from yesterday. Plans to get a shower today -Reports she is tolerating p.o. without nausea or vomiting. -Reports her lochia is scant. -Undecided on contraception -She is breast-feeding and supplementing her female -Denies chest pain shortness of breath or pain in her legs. No further complaints at this time. Exam Data for Last 24 hours Vital signs and Labs for Last 24 Hours: Temp Pulse Resp BP Pulse Ox O2 Del Method 97.8 F 83 18 149/82 H 98 Room Air 01/29/25 08:00 01/29/25 14:58 01/29/25 14:58 01/29/25 14:58 01/29/25 14:58 01/29/25 14:58 Laboratory Results - last 24 hr 01/26/25 13:50: Blood Type O Positive, Antibody Screen Negative, Crossmatch (AHG) See Detail 01/28/25 17:54: Magnesium 5.3 H I & O for Last 24 hours: Intake & Output 01/26/25 01/27/25 01/28/25 01/29/25 23:59 23:59 23:59 23:59 Intake Total 1970 / 1970 Output Total 700 / 700 2750 / 2750 1300 / 1300 Balance 1271 / 1271 -2750 / -2750 -1300 / -1300 Microbiology Reports for the Last 24 Hours: Microbiology 01/27/25 12:18 Urine,Catheterized Urine Culture - Final No growth. Narrative: General: patient is alert oriented in no acute distress and responds appropriately to questions. Appears to be in minimal pain. Up in the chair, caring for HEENT: NCAT, EOMI, moist mucous membranes, neck supple with full ROM Cardiovascular: RRR +S1/S2, no murmurs or rubs Pulmonary: Clear to auscultation bilaterally, nonlabored breathing, symmetric chest rise Abdominal: Fundus below the umbilicus, firm, and tenderness appropriate for the period. Extremities: trace edema, no tenderness or cyanosis noted. +2/4 patella reflexes bilaterally. Skin: Normal turgor, intact, warm. Negative for erythema, pallor, petechia, or lesions. Incision healing well, no signs of infection. Neurologic: Negative for sensory or motor deficit Psychiatric: Normal affect, normal thought process, good judgment and insight, no depression or anxious mood appreciated. Assessment and Plan *Assessment and plan (1) heart rate/rhythm abnormality affecting management of mother: Status: Acute Category: Medical Code(s): O36.8390 - Maternal care for abnormalities of the heart rate or rhythm, unspecified trimester, not applicable or unspecified (2) Chronic hypertension with superimposed preeclampsia: Problem Comment: 24 hour urine: 300mg on 12/01/24 (150mg on 10/19/24). UPC at 34 weeks 2 days: 0.095 Status: Acute Category: Medical Code(s): O11.9 - Pre-existing hypertension with pre-eclampsia, unspecified trimester (3) Chronic hypertension affecting : Status: Acute Category: Medical Code(s): O10.919 - Unspecified pre-existing hypertension complicating , unspecified trimester (4) : Status: Acute Qualifiers: Weeks of gestation: 35 weeks Qualified Code(s): Z3A.35 - 35 weeks gestation of Category: Medical Code(s): Z34.90 - Encounter for supervision of normal , unspecified, unspecified trimester (5) HTN (hypertension): Status: Acute Qualifiers: Hypertension type: primary hypertension Qualified Code(s): I10 - Essential (primary) hypertension Category: Medical Code(s): I10 - Essential (primary) hypertension (6) delivery delivered: Status: Acute Category: Medical Code(s): O82 - Encounter for delivery without indication Plan Stable. POD#2 s/p PLTCS -Doing well. VSS. Serial lochia and fundal checks. -, female -Contraception: undecided -Follow-up 1 weeks for routine visit -Dispo: home tomoroow days pending mother/ status #anemia -Hemoglobin: 11.0--> 10.1 - asymptomatic anemia noted. Vitals stable. Continue monitoring. DC with Fe -O+/antibody negative #Chronic Hypertension with severe range blood pressure #Chronic hypertension, poorly controlled blood pressures requiring frequent medication dose adjustments - [facility] labs every 24 hours unless indicated sooner. LAbs penidng this afternoon - BP logs reviewed and appropriate - s/p 24 hours of magnesium - continue labetalol to 300 mg 3 times a day - Continue nifedipine 30 mg daily - Doing well. no BP elevation and asymptomatic
[2025-01-29 16:17] LABS: Hematocrit 27.6 % (37.0-47.0); Hemoglobin 9.4 g/dL (12.2-16.2); Immature Granulocytes % 0.4 %; Mean Corpuscular HGB Conc 34.1 g/dL (31.8-35.4); Mean Corpuscular Hemoglobin 31.1 pg (27.0-31.2); Mean Corpuscular Volume 91.4 fl (81-99); Nucleated Red Blood Cells % 0 %; Platelet Count 222 K/mm3 (142-424); Red Blood Count 3.02 M/mm3 (4.20-5.40); Red Cell Distribution Width-SD 43.0 fL; White Blood Count 8.4 K/mm3 (4.8-10.8)
[2025-01-29 16:29] LABS: Alanine Aminotransferase 14 U/L (12-78); Albumin Level 3.1 g/dl (3.5-5.0); Albumin/Globulin Ratio 1.2 (1.1-1.8); Alkaline Phosphatase 96 U/L (38-126); Anion Gap 9.7 mEq/L (5-15); Aspartate Amino Transferase 20 U/L (14-36); Blood Urea Nitrogen 9 mg/dl (7-17); Calcium 8.9 mg/dl (8.4-10.2); Carbon Dioxide 22 mmol/L (22.0-30.0); Chloride 108 mmol/L (98-107); Creatinine Clearance Estimated 220 mL/min (50-200); Creatinine,Serum 0.60 mg/dl (0.52-1.04); Estimated Glomerular Filt Rate 124 ml/min (>60); GFR (African American) 150 ML/MIN (>60); Globulin 2.5 g/dL (1.3-3.2); Glucose 130 mg/dl (74-100); Potassium 3.7 mmoL/L (3.5-5.1); Sodium 136 mmol/L (136-145); Total Protein,Serum 5.6 g/dl (6.3-8.2)
[2025-01-29 16:33] LABS: Bilirubin,Total < 0.1 mg/dl (0.2-1.3)
[2025-01-30] MEDS: OXYCODONE 5MG IMMEDIATE RELEASE TABLET 10 MG PO ×2 (01:13→06:20)
[2025-01-30] MEDS: IBUPROFEN 400 MG TABLET 800 MG PO ×2 (01:13→10:00)
[2025-01-30] MEDS: ACETAMINOPHEN 500MG TAB 1000 MG PO ×2 (03:23→09:59)
[2025-01-30] MEDS: LABETALOL 100MG TABLET 300 MG PO ×2 (06:16→14:13)
[2025-01-30 08:20] LABS: RPR W/RFX Titers Nonreactive (Nonreactive)
--- NOTE | 2025-01-30 08:38 | EXP.DC.SUM ---
General Admission date:: 01/21/25 HPI HPI HPI: She is a 24-year-old 1 para 0 at 36+ weeks gestational age. She was seen a few days ago and noted to have blood pressures in the 170s over 100 range. She was given IV labetalol and started on magnesium sulfate. She was transferred to [facility] by ambulance. She has been a couple of days there and they elected to send her home to follow-up with us. Today at home she found that her blood pressures were elevated in the 170s over 90 range. She is otherwise asymptomatic. She did have a headache earlier but this has now settled. She takes labetalol 200 mg 3 times daily and nifedipine 30 mg XL. Hospital Course Hospital Course Hospital Course: Jess is a 24-year-old G1, P1 day #3 from a primary low-transverse delivery secondary to heart rate abnormalities. She delivered a live viable female infant on 01/27/2025 at 1219. Infant weighed 7 pounds 4 ounces and was 18-3/4 inches long. Apgars were 4 and 7 at 1 and 5 minutes respectively. EBL was 300. She has both breast and bottlefeeding. She had a delivery under general anesthesia. Hepatitis B negative, rubella immune, GBS negative, blood type: O+. She received 24 hours of magnesium . She will be discharged home with labetalol 300 mg 3 times daily and nifedipine 30 mg once daily. She has chronic hypertension. She has not developed proteinuria during but she did have severe range blood pressures which indicated the magnesium prophylaxis. Throughout her stay her pH labs have been followed closely and been within normal limits. She will be discharged home and follow-up within 1 week for blood pressure and incision check. Routine discharge instructions were reviewed and patient voiced understanding. All questions and concerns were addressed Exam Data for Last 24 hours Vital signs and Labs for Last 24 Hours: Temp Pulse Resp BP Pulse Ox O2 Del Method 97.8 F 83 18 149/82 H 98 Room Air 01/29/25 08:00 01/29/25 14:58 01/29/25 14:58 01/29/25 14:58 01/29/25 14:58 01/29/25 14:58 Laboratory Results - last 24 hr 01/26/25 13:50: RPR w/Rflx to Titer Nonreactive, Blood Type O Positive, Antibody Screen Negative, Crossmatch (AHG) See Detail 01/29/25 16:10: WBC 8.4 D, RBC 3.02 L, Hgb 9.4 L, Hct 27.6 L, MCV 91.4, MCH 31.1, MCHC 34.1, RDW 13.1, Plt Count 222, MPV 9.1, Neut % (Auto) 75.2, Lymph % (Auto) 18.6, [place] % (Auto) 5.0, Eos % (Auto) 0.6, Baso % (Auto) 0.2, Neut # (Auto) 6.3, Lymph # (Auto) 1.6, [place] # (Auto) 0.4, Eos # (Auto) 0.1, Baso # (Auto) 0.0, Sodium 136, Potassium 3.7, Chloride 108 H, Carbon Dioxide 22, Anion Gap 9.7, BUN 9, Creatinine 0.60, Estimated Creat Clear 220, Estimated GFR 124, Est GFR ( Amer) 150, Glucose 130 H, Calcium 8.9, Total Bilirubin < 0.1 L, AST 20, ALT 14, Alkaline Phosphatase 96, Total Protein 5.6 L, Albumin 3.1 L, Globulin 2.5, Albumin/Globulin Ratio 1.2 I & O for Last 24 hours: Intake & Output 01/27/25 01/28/25 01/29/25 01/30/25 23:59 23:59 23:59 23:59 Intake Total 1970 / 1970 Output Total 700 / 700 2750 / 2750 1300 / 1300 Balance 1271 / 1271 -2750 / -2750 -1300 / -1300 Microbiology Reports for the Last 24 Hours: Microbiology 01/27/25 12:18 Urine,Catheterized Urine Culture - Final No growth. Narrative: General: patient is alert oriented in no acute distress and responds appropriately to questions. Appears to be in minimal pain. Up in the chair, caring for HEENT: NCAT, EOMI, moist mucous membranes, neck supple with full ROM Cardiovascular: RRR +S1/S2, no murmurs or rubs Pulmonary: Clear to auscultation bilaterally, nonlabored breathing, symmetric chest rise Abdominal: Fundus below the umbilicus, firm, and tenderness appropriate for the period. Extremities: trace edema, no tenderness or cyanosis noted. +2/4 patella reflexes bilaterally. Skin: Normal turgor, intact, warm. Negative for erythema, pallor, petechia, or lesions. Incision healing well, no signs of infection. Neurologic: Negative for sensory or motor deficit Psychiatric: Normal affect, normal thought process, good judgment and insight, no depression or anxious mood appreciated. Results Data Completed and Pending Labs on day of discharge: Labs from last 24 hours 01/29/25 01/26/25 16:10 13:50 WBC 8.4 D RBC 3.02 L Hgb 9.4 L Hct 27.6 L MCV 91.4 MCH 31.1 MCHC 34.1 RDW 13.1 Plt Count 222 MPV 9.1 Neut % (Auto) 75.2 Lymph % (Auto) 18.6 [place] % (Auto) 5.0 Eos % (Auto) 0.6 Baso % (Auto) 0.2 Neut # (Auto) 6.3 Lymph # (Auto) 1.6 [place] # (Auto) 0.4 Eos # (Auto) 0.1 Baso # (Auto) 0.0 Sodium 136 Potassium 3.7 Chloride 108 H Carbon Dioxide 22 Anion Gap 9.7 BUN 9 Creatinine 0.60 Estimated Creat Clear 220 Estimated GFR 124 Est GFR ( Amer) 150 Glucose 130 H Calcium 8.9 Total Bilirubin < 0.1 L AST 20 ALT 14 Alkaline Phosphatase 96 Total Protein 5.6 L Albumin 3.1 L Globulin 2.5 Albumin/Globulin Ratio 1.2 RPR w/Rflx to Titer Nonreactive Blood Type O Positive Antibody Screen Negative Crossmatch (AHG) See Detail DS: Diagnosis Discharge Diagnosis (1) heart rate/rhythm abnormality affecting management of mother: Status: Acute Code(s): O36.8390 - Maternal care for abnormalities of the heart rate or rhythm, unspecified trimester, not applicable or unspecified (2) Chronic hypertension with superimposed preeclampsia: Status: Acute Code(s): O11.9 - Pre-existing hypertension with pre-eclampsia, unspecified trimester Problem details: 24 hour urine: 300mg on 12/01/24 (150mg on 10/19/24). UPC at 34 weeks 2 days: 0.095 (3) Chronic hypertension affecting : Status: Acute Code(s): O10.919 - Unspecified pre-existing hypertension complicating , unspecified trimester (4) : Status: Acute Code(s): Z34.90 - Encounter for supervision of normal , unspecified, unspecified trimester Qualifiers: Weeks of gestation: 35 weeks Qualified Code(s): Z3A.35 - 35 weeks gestation of (5) HTN (hypertension): Status: Acute Code(s): I10 - Essential (primary) hypertension Qualifiers: Hypertension type: primary hypertension Qualified Code(s): I10 - Essential (primary) hypertension (6) delivery delivered: Status: Acute Code(s): O82 - Encounter for delivery without indication Meds Home Medications and Allergies Home Medications ?Medication ?Instructions ?Recorded ?Confirmed ?Type vitamins no.159-iron 1 tab PO DAILY 30 days #30 tabs 06/05/24 01/22/25 Rx fumarate 28 mg-folic acid 800 mcg tablet ( Vitamin) magnesium oxide 400 mg PO TID #90 caps 08/23/24 01/22/25 Rx ondansetron 4 mg disintegrating 4 mg PO Q6H PRN nausea and 10/11/24 01/22/25 Rx tablet vomiting #30 tabs albuterol sulfate 90 mcg/actuation 2 puff inhalation Q6H PRN SOB #8.5 10/31/24 01/22/25 Rx aerosol inhaler grams nifedipine 30 mg tablet,extended 30 mg PO DAILY #30 tabs 11/29/24 01/22/25 Rx release famotidine 20 mg tablet (Pepcid) 20 mg PO DAILY #30 tabs 12/31/24 01/22/25 Rx acetaminophen 500 mg tablet 500 mg PO Q6H PRN fever or pain 01/30/25 Rx #30 tabs ibuprofen 800 mg tablet 800 mg PO Q8H PRN pain #60 tabs 01/30/25 Rx labetalol 300 mg tablet 300 mg PO TID #90 tabs 01/30/25 Rx oxycodone 5 mg tablet 5 mg PO Q8H PRN pain #15 tabs 01/30/25 Rx sennosides 8.6 mg tablet (Senna 8.6 mg PO BIDP PRN Constipation 01/30/25 Rx Lax) #60 tabs simethicone 125 mg tablet 125 mg PO DAILY PRN abdominal 01/30/25 Rx distention #60 tabs New Prescriptions to Start Prescriptions: acetaminophen BaljitDemetra ibuprofen Baljit,Demetra labetalol Baljit,Demetra oxycodone Baljit,Demetra sennosides [Senna Lax] Baljit,Demetra simethicone Demetra Smiley Allergies Allergy/AdvReac Type Severity Reaction Status Date / Time erythromycin base Allergy Intermediate soa, hives Verified 01/16/25 14:44 (ERYTHROMYCIN BASE) clonidine Allergy Unknown Verified 01/16/25 14:44 allergy reaction Discharge Plan Disposition Patient Disposition: Home, Self-Care Condition: Good Discharge Order Discharge Orders: Discharge Order (Routine); Ordered 01/30/25 Ordered By: Demetra Smiley Follow up Plan Prescriptions/Medication Reconciliation: New ibuprofen 800 mg tablet 800 mg PO Q8H PRN (Reason: pain) Qty: 60 2RF acetaminophen 500 mg tablet 500 mg PO Q6H PRN (Reason: fever or pain) Qty: 30 3RF oxycodone 5 mg tablet 5 mg PO Q8H PRN (Reason: pain) Qty: 15 0RF sennosides [Senna Lax] 8.6 mg Tablet 8.6 mg PO BIDP PRN (Reason: Constipation) Qty: 60 2RF simethicone 125 mg tablet 125 mg PO DAILY PRN (Reason: abdominal distention) Qty: 60 2RF labetalol 300 mg tablet 300 mg PO TID Qty: 90 0RF Continued famotidine [Pepcid] 20 mg tablet 20 mg PO DAILY Qty: 30 2RF magnesium oxide 400 mg magnesium capsule 400 mg PO TID Qty: 90 2RF albuterol sulfate 90 mcg/actuation HFA aerosol inhaler 2 puff inhalation Q6H PRN (Reason: SOB) Qty: 8.5 0RF nifedipine 30 mg tablet extended release 30 mg PO DAILY Qty: 30 2RF ondansetron 4 mg tablet,disintegrating 4 mg PO Q6H PRN (Reason: nausea and vomiting) Qty: 30 2RF Vitamin 28 mg iron- 800 mcg tablet 1 tab PO DAILY 30 Days Qty: 30 5RF Discontinued nystatin 100,000 unit/gram powder 1 applic topical DAILY Qty: 60 0RF labetalol 200 mg tablet 200 mg PO TID Qty: 90 2RF Problem Reconciliation Problems Reviewed?: Yes Patient Discharge Instructions ACTIVITY: Continue current activity DIET: regular diet Additional Instructions: Congratulations on the delivery of your sweet baby girl. It is my privilege to be your doctor and I am so thankful I could be a part of your special day. Discharge: 1. Take 800 mg Ibuprofen every 8 hours as needed for pain. You can also take 500-1000mg of Tylenol in between doses, every 6-8 hours. Use prescription pain medicine for pain you feel in between 8 hour interval. -No driving while taking narcotic pain medications. In order to drive you should be able to slam on the brakes without significant abdominal pain. 2. Wean from prescription pain medicine first. Do not drive while taking it. 3. Prescription pain medicine can make you constipated. Colace can be taken 1-2 times per day as you need. Make sure to drink at least 8 cups of water per day. 4. Iron supplements can make you constipated. Colace can be taken 1-2 times per day as you need. You can take iron tablets every other day if constipation is too bad. 5. Nothing in the vagina for 6 weeks - no intercourse, douching, tampons. No tub baths or swimming pools 6. Do not lift greater than 15 pounds for 6 weeks, this is the equivalent of 2 gallons of milk. 7. Reasons to return to L&D or call On-Call doctor - fever (greater than 100.4) - heavy vaginal bleeding (soaking through 1 pad in less than 2 hours or passing clots that are egg sized) - vaginal discharge (malodorous and/or purulent) - bleeding or discharge from her incision - severe headaches, leg tenderness/edema, or any other symptoms that warrant immediate medical attention. 8. depression/blues - Normal to feel anxious/overwhelmed for first 2 weeks - Talk to your doctor if: anxiety lasts over 2 weeks, trouble bonding with baby, withdrawing from other family members, thoughts of harming yourself or others Blood pressure and preeclampsia instructions 1. Please take your blood pressure twice daily. 2. Please call if greater than 2 values are higher than: 150 systolic (the top number) or 100 diastolic (the bottom number). 3. Please go to the emergency room or labor and delivery triage if any value is higher than: 160 systolic (the top number) or 110 diastolic (the bottom number). 4. Please call if unrelenting headache (does not go away with rest or Tylenol or ibuprofen), changes in vision (spots, floaters, flashes of light), chest pain, shortness of breath, or right upper quadrant (liver) abdominal pain. Demetra Smiley DO [facility] [phone] *Nothing in the Vagina for 6 weeks* *No strenuous activity* *No heavy lifting* *No tub baths until okay's by MD* Print Language: Belarusian Providers Primary Care Provider: Destiny Seymour Admit Provider: Oliverio Amanda Attending Provider: Oliverio Amanda
[2025-01-30] MEDS: ASPIRIN 81MG CHEWABLE TABLET 81 MG PO (09:59)
== END 2025-01-30 14:38 | disposition home or self-care (01) | DRG 788 ==
LOC: RAD 19:34 → OB 19:38
PROVIDERS: Obstetrics & Gynecology; Admitting Provider Nurse Practitioner Obstetrics & Gynecology; PCP Physician Assistant; Visit Provider Nurse Practitioner Obstetrics & Gynecology
PROC: 10D00Z1 Extraction of Products of Conception, Low, Open Approach (ICD-10-PCS; CPT 59514; principal; 2025-01-27 12:00)
DX: O11.4 Pre-existing hypertension with pre-eclampsia, complicating childbirth (principal); O10.02 Pre-existing essential hypertension complicating childbirth; O76 Abnormality in fetal heart rate and rhythm complicating labor and delivery; Z37.0 Single live birth; O99.334 Smoking (tobacco) complicating childbirth; F17.290 Nicotine dependence, other tobacco product, uncomplicated; Z3A.36 36 weeks gestation of pregnancy; O69.81X0 Labor and delivery complicated by cord around neck, without compression, not applicable or unspecified; O90.81 Anemia of the puerperium; Z23 Encounter for immunization; Z88.1 Allergy status to other antibiotic agents; Z88.8 Allergy status to other drugs, medicaments and biological substances; Z98.890 Other specified postprocedural states
CPT/HCPCS: 36415; 51702; 59025; 76819; 80053; 81001; 82570; 82800; 83615; 83735; 84156; 84550; 85007; 85014; 85018; 85025; 85048; 85049; 85384; 85610; 85730; 86592; 86850; 87086; 94761; G0378; J0360; J0595; J0665; J0666; J0690; J1100; J1171; J1885; J1920; J2004; J2250; J2405; J2590; J2704; J3010; J3475; J7120; J7121

== ENCOUNTER 2025-02-01 17:04 | Observation (INO) | payer BC, SELFPAY ==
--- OUTSIDE RECORDS SUMMARY | 2024-02-08 06:45 | XMS_ITS ---
Author Organization [facility] Address [address] [place] [phone] Care Team Providers Care Business Records Manager Name Role Phone Destiny Seymour Unavailable [phone] Allergies Allergen (clinical drug ingredient) Drug/Non Drug Allergy documented on EMR Reaction Allergy Type Onset Date Status erythromycin Erythromycin Unknown Drug Allergy A ctive Reason For Referral Diagnosis 1 Rheumatoid arthritis , involving unspecified site, unspecified whether rheumatoid factor present (M06.9) Referral Organization [facility] Referring Provider First Name Destiny Referring Provider Last Name Dawn Referring Provider Speciality Physician Devulcanizer Tender Referred Provider Rheumatology, . Referred Provider Specialty Rheumatology General Notes Destiny Seymour 2023 11:16:04 AM > PT needs an appt with Pepepr Bonilla Brynn 02/12/2024 11:44:56 AM > sent referral to Dr. Jacobs via [facility] website Referral Priority Routine REASON FOR VISIT [...] needed Orally Once a day, prn Active Ysazwxfopk-WZHF-Ydvazpbt 50-325-40 MG 1 tablet as needed Orally [...] Status Risk Notes Problem Gastroesophageal reflux disease (955841907) Gastroesophageal reflux disease, unspecified whether esophagitis present (K21.9) Active confirmed Problem Rheumatoid arthritis, involving unspecified site, unspecified whether rheumatoid factor present (M06.9) Active confirmed Vital Signs Blood pressure systolic 140 mm Hg 02/08/20 24 Blood pressure diastolic 90 mm Hg 024 Heart Rate 69 /min 02/08/2024 Height 66 in 02/08/2024 Weight 191.2 lbs 02/08/2024 BMI 30.86 kg/m2 02/08/2024 Encounters Encounter Location Date Provider Diagnosis [facility] [address] [facility] [address] [place], [place] [phone] 02/08/2024 Destiny Seymour Gastroesophageal ref lux disease, [...] Notes * TANK PHILLIPOB:2000 (24 yo F)Acc No.[id number]:02/08/2024 Progress Notes Patient: FILI MONAHAN Provider: ETHEL Valentin :2000 A ge:23 Y S ex:Female Date:02/08/2024 Phone: Address:[address] [place] [address] , [place], [id number] Subjective: * Chief Complaints: * 1 . follow up ER, gerd. * HPI: G astroenterology: The pt is here for a follow up on an [facility] ER visit due to shortness of breath [...] the morning Orally once daily , Not-Taking Nxkdlslmbv-AZRJ-Mhwsijdp 50-325-40 MG Tablet 1 tablet as needed [...] * Images: Billing Information: * Visit Code: 35768 Office Visit, Est Pt., Level 4. * Procedure Codes: * Electronic signature of ETHEL Edwards on 02/01/2025 at 05:21 PM EDT Sign off status: Pending * Provider: ETHEL Valentin Date: 02/08/2024 Generated for Printi ng/Faxing/eTransmitting on: 02/01/2025 05:21 PM EDT History and Physical Notes * [...]
--- OUTSIDE RECORDS SUMMARY | 2024-04-24 07:30 | XMS_ITS ---
Author Organization Bradley Address [address] [facility] [address] [phone] Care Team Providers Care Curb Machine Operator Name Role Phone Destiny Seymour Unavailable [phone] Allergies Allergen (clinical drug ingredient) Drug/Non Drug [...] Last Name Dawn Referring Provider Speciality Physician Mail Room Clerk Referred Provider Rheumatology, . Referred Provider Specialty [...] 04/24/2024 Encounters Encounter Location Date Provider Diagnosis [facility] [address] [place], [place] [id number] 04/24/2024 Destiny Seymour Strep pharyngitis J0 2.0 [...] Notes * TANK ROSENOB:2000 (24 yo F)Acc No.[id number]:04/24/2024 Progress Notes Patient: FILI MONAHAN Provider: ETHEL Valentin :2000 A ge:23 Y S ex:Female Date:04/24/2024 Phone: Address:[address] [place] [address] Brad Ayon enmanuel, [id number] Subjective: * Chief Complaints: * 1 . [...] the morning Orally once daily , Discontinued Qguuvgruhb-EDZG-Wivdxcqk 50-325-40 MG Tablet 1 tablet as needed [...] * Images: Billing Information: * Visit Code: 45815 Office Visit, Est Pt., Level 3. * Procedure Codes: 89105 STREP A ASSAY W/OPTIC. Modifiers: QW * Electronic signature of ETHEL Edwards on 02/01/2025 at 05:21 PM EDT Sign off status: Pending * Provider: ETHEL Valentin Date: 1 Generated for Melisa gonzalez/Anel/Misbahitting on: 0 02/01/2025 05:21 PM EDT History and Physical [...]
--- OUTSIDE RECORDS SUMMARY | 2024-06-14 09:15 | XMS_ITS ---
Author Organization Bradley Address [address] [facility] [address] [place] [phone] Care Team Providers Care Vault Manager Name Role Phone Dawn Destiny Unavailable [phone] Allergies Allergen (clinical drug ingredient) Drug/Non Drug Allergy documented on EMR Reaction Allergy Type Onset Date Status erythromycin Erythromycin Unknown Drug Allergy A ctive REASON FOR VISIT checkup 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 Tobacco Use: 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 Observation Description Date Smoking Status WARNING: Information temporarily unavailable CURRENT TOBACCO USE: Question Answer Notes Are you a: Smokeless Tobacc o (Vape) Encounters Encounter Location Date Provider Diagnosis [facility] [address] [place] [phone] 06/14/2024 Destiny Seymour Plan Of Treatment No Information Progress Notes * TANK PHILLIPOB:2000 (24 yo F)Acc No.[id number]:06/14/2024 Progress Notes Patient: FILI MONAHAN Provider: ETHEL Valentin :2000 A ge:24 Y S ex:Female Date:06/14/2024 Phone: Address:[address] [place] [address] [address] [place] Espinal-[id number] Subjective: * Chief Complaints: * 1 . Checkup. * HPI: H PI: 24 year old female presents with c/o Patient is here today for?Pt is here today for a check up. * ROS: D ERMATOLOGY: no R donna. [...] Single. Alcohol: yes, Beer- 2-3 rarely. * Allergies: E rythromycin. Objective: * Vitals: Assessment: Plan: * Treatment: * Images: Billing Information: * Visit Code: * Procedure Codes: * Electronic signature of ETHEL Edwards on 02/01/2025 at 05:22 PM EDT Sign off status: Pending * Provider: ETHEL Valentin Date: 1 08/15/2023 Generated for Melisa gonzalez/Anel/Misbahitting on: 0 02/01/2025 05:22 PM EDT History and Physical Notes * HPI (History of Present Illness) Category Sub-Category Detail Notes Category Not es HPI Patient is here today for Pt is here toda y for a check up
--- OUTSIDE RECORDS SUMMARY | 2024-12-12 13:26 | XMS_ITS | Encounter Summary ---
Author Organization [facility] Address [address] [id number] Care Team Providers Care Full Roll Inspector Name Role Phone Destiny Seymour Primary Care Provider [phone] Reason for Referral * Diagnostic Imaging (Routine) - Closed Specialty Diagnoses / Procedures Referred By Contac t Referred To Contact Radiology Diagnoses Paroxysmal SVT (supraventricular tachycardia) Chronic hypertension complicating or reason for care during , second trimester Procedures [facility] [place] [address] [place] [address] [place] [address] Phone: tel: fax: Referral ID Status Reason Start Date Expiration Date Visits Re quested Visits Authorized [id number] Closed 11/05/2024 02/04/2026 1 1 Reason for Visit * Diagnostic Imaging (Routine) - Closed Specialty Diagnoses / Procedures Referred By Contac t Referred To Contact Radiology Diagnoses Paroxysmal SVT (supraventricular tachycardia) Chronic hypertension complicating or reason for care during , second trimester Procedures [facility] [place] John Mendoza MD [address] [facility] [address] [place] [address] Phone: tel: fax: Referral ID Status Reason Start Date Expiration Date Visits Re quested Visits Authorized [id number] Closed 11/05/2024 02/04/2026 1 1 Encounter Details Date Type Department Care Team (Late st Contact Info) Description 12/12/2024 1:26 PM EDT - 12/12/2024 11:59 PM EDT Hospital Encounter [facility] PER DIAG CTR [address] [place] [address] John Mendoza MD [address] [place] [address] Paroxysmal SVT (supraventricular tachycardia); Chronic hypertension complicating [...] tablet by mouth Daily. 11/29/2024 nystatin (MYCOSTATIN) 252868 UNIT/GM powder As Needed. 08/23/2024 documented as of this encounter Plan of Treatment Not on file documented as of this encounter Procedures Procedure Name Priority Date/Time Associated Diagnosis Comments [facility] Routine 12/12/2024 2:10 PM EDT Paroxysmal SVT (supraventricular tachycardia) Chronic hypertension complicating or reason for care during , second trimester documented in this encounter Results * [facility] (12/12/2024 2:10 PM EDT) Anatomical Region Laterality Modality Ultrasound 12/12/2024 2:01 PM EDT Narrative 12/12/2024 2:18 PM EDT PAT NAME: FILI PHILLIP MED REC#: [id number] DA: 2000 PAT GEND: F PAT TYPE: O EXAM XIAO: [id number] REF PHYS PEPITO BUITRAGO Comparison Studies The [...] EFW (oz) 11 oz EFW by: Hadlock (ZEL-AW-SM-FL) Extended Cav. septi pel. tr 4.8 mm Senior Drafter 6.1 mm Nasal bone 10.4 mm Head [...] Normal Heart / Thorax 3-vessel view: Normal 6-fwblqe-ycgczpf view: normal Stomach: Appears normal Kidneys: Appears [...] normal. Recommendation 4 weeks. Coding ======= Description: 62579-62 Follow Up Ultrasound Description: 16039-10 BPP without NST Nanny/Household Manager: Delmy Xiong RDMS Physician: John Mendoza MD, FACOG Electronically signed by: John Mendoza MD, FACOG at: 14:18 Procedure Note John Mendoza MD - 12/12/2024 PAT NAME: FILI PHILLIP [facility] REC#: [id number] DA: 2000 PAT GEND: F PAT TYPE: O EXAM XIAO: [id number] REF PHYS PEPITO BUITRAGO Comparison Studies The findings of this study are compared to the prior ultrasound studydated 11/05/24 Patient Status Outpatient Indication ======== CHTN. Rheumatoid arthritis. Maternal chiari malformation. Hx SVT withablation 2022. Vapes. Obesity BMI 33. Maternal Assessment Vtawyg947 cm Fsqmhq14 kg Weight (lb)205 lb BMI33.34 kg/m Method ======= Transabdominal ultrasound examination. View: Adequate view ========= Beltran . Number of fetuses: 1 Dating ====== Method of dating:based on stated TIFFANY GA by prior gdvgfhhupr15 w + 4 d TIFFANY by prior assessment:02/16/2025 Ultrasound examination on:12/12/2024 GA by U/S based upon:AC, BPD, Femur, HC GA by U/S32 w + 0 d TIFFANY by U/S:02/06/2025 Previous dating:based on stated TIFFANY, selected on 11/05/2024 Agreed TIFFANY of previous datin02/16/2025 Assigned:based on stated TIFFANY, selected on 12/12/2024 Assigned GA30 w + 4 d Assigned TIFFANY:02/16/2025 uwynlc831 d Biometry Standard BPD81.3 mm 32w 5d 92% Hadlock PXX459.8 mm 33w 6d 98% Ermelinda HC300.1 mm 33w 2d 86% Hadlock AC256.3 mm 29w 6d 24% Hadlock Femur61.3 mm 31w 6d 71% Hadlock Gacevsu35.5 mm 30w 4d 55% Ermelinda HC / AC1.17 EFW1,681 g 30w 4d 52% Hadlock EFW (lb)3 lb EFW (oz)11 oz EFW by:Hadlock (JSA-TH-PA-FL) Extended Cav. septi pel. tr4.8 mm Vp6.1 mm Nasal bone10.4 mm Head / Face / Neck Cephalic index0.78 39% Nicolaides Extremities / Bony Struc FL / BPD0.75 FL / HC0.20 FL / AC0.24 Other Structures JPV810 bpm General Evaluation Cardiac activity present. FHR [...] LVOT view:Normal Heart / Thorax 3-vessel view:Normal 4-drudaj-jalpzxe view:normal Stomach:Appears normal Kidneys:Appears normal Bladder:Appears normal [...] are normal. Recommendation 4 weeks. Coding ======= Description:19366-80 Follow Up Ultrasound Description: BPP without NST Nanny/Household Manager: Delmy Xiong RDMS Physician: John Mendoza MD, FACOG Electronically signed by: John Mendoza MD, FACOG at: 14:18 us John Mendoza MD IMG US ORDERABLES Final Result documented in this encounter Visit Diagnoses Diagnosis Paroxysmal SVT (supraventricular tachycardia) Chronic hypertension complicating or reason for care during , second trimester documented in this encounter Care Teams Full Roll Inspector Relationship Specialty Start Date End Date Destiny Seymour PA [address] [facility] [address] [place] [id number] PCP - General Physician Cena 09/14/22 documented as of this encounter
--- OUTSIDE RECORDS SUMMARY | 2024-12-12 13:45 | XMS_ITS | Encounter Summary ---
Author Organization [facility] Address [address] [place] [id number] Care Team Providers Care Keyboard Specialist Name Role Phone Destiny Seymour Primary Care Provider [phone] Reason for Referral * Diagnostic Imaging (Routine) - Authorized Specialty Diagnoses / Procedures Referred By Contac t Referred To Contact Radiology Diagnoses Chronic hypertension complicating or reason for care during , second trimester Procedures [facility] David Mendoza MD [address] [facility] [address] [place] [address] Phone: tel: fax: [facility] US PER DIAG CTR [address] [place] [address] Phone: tel: Referral ID Status Reason Start Date Expiration Date V isits Requested Visits Authorized [id number] Authorized 12/13/2024 03/14/2026 1 1 Reason for Visit * Reason Comments CHTN; maternal SVT; RA; maternal chiari malf. Encounter Details Date Type Department Care Team (Late st Contact Info) Description 12/12/2024 1:45 PM EDT Office Visit [facility] MATERNAL MEDICINE [address] [facility] [address] [place] [address] David Mendoza MD [address] [facility] [address] [place] [phone] Chronic hypertension complicating or reason for care [...] mouth Daily., Disp: , Rfl: nystatin (MYCOSTATIN) 975678 UNIT/GM powder, As Needed., Disp: , Rfl: [...] CVS. David Mendoza MD, FACOG Maternal Medicine, [facility] documented in this encounter Plan of Treatment Scheduled Orders Name Type Priority Associated Diagnoses Orde r Schedule [facility] Imaging Routine Chronic hypertension complicating or reason for care during , second trimester Expected: 12/18/2024 (Approximate), Expires: 12/13/2025 documented as of this encounter Visit Diagnoses Diagnosis Chronic hypertension complicating or reason for care during , second trimester- Primary documented in this encounter Care Teams Keyboard Specialist Relationship Specialty Start Date End Date Destiny Seymour PA [address] [facility] [address] [place] [address] PCP - General Physician Taxonomist 09/14/22 documented as of this encounter
--- OUTSIDE RECORDS SUMMARY | 2025-01-17 22:36 | XMS_ITS | Encounter Summary ---
Author Organization [facility] Address [address] [place] [id number] Care Team Providers Care Seamless Tube Drawer Name Role Phone Destiny Seymour Primary Care Provider [phone] Reason for Visit * Reason Comments Elevated [...] - 01/20/2025 12:12 PM EDT Hospital Encounter [facility] [address] [place] [id number] Zeb Gonzalez MD [address] [facility] [address] [place] [address] Discharge Disposition: Home or Self Care 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 Tobacco Use Types Packs/Day Years Used Date Smoking Tobacco: Never Passive Smoke Exposure: Past Smokeless Tobacco: Never Alcohol Use Standard Drinks/Week Comments Not Currently 2 (1 standard drink = 0.6 oz pur e alcohol) socially C Utilities Answer Date Recorded In the past 12 months has [employer], gas, oil, or water company threatened to [...] and heating? Not hard at all 01/17/2025 [facility] Occupational Stress Questionnaire Answer Date Recorded [...] GED or equivalent No 01/17/2025 Preferred Language Venezuelan 01/17/2025 PHQ-2 Answer Date Recorded Patient Health [...] 11:07 PM EDT Atiya Gordon RN * [place] Suicide Severity Rating Scale (Screener/Recent Self-Report) Question [...] tablet Commonly known as: ADALAT CC nystatin 717376 UNIT/GM powder Commonly known as: MYCOSTATIN Disposition:Home or Self Care Follow up: She will have an-other NST later this week and is scheduled for an induction on 01/28 Neymar Winters MD documented in this encounter Discharge Instructions * Attachments The following attachments cannot be sent through Care Everywhere. * High Blood Pressure During (Venezuelan) documented in this encounter Medications at Time [...] 01/19/2025 7:25 AM EDT Fili Mercado Kenji [id number] 2000 Referring physician: Oliverio Amanda MD Chief [...] - 01/18/2025 7:18 AM EDT Fili Rosen [id number] 2000 Referring physician: Oliverio Amanda MD Chief [...] 01/17/2025 11:00 PM EDT Fili Rosen 2000 [id number] Referring physician: Oliverio Amanda MD CC: chron HTN with superimposed preeclampsia HPI: Patient is 24 y.o. female currently at 35w5d presented to [facility] for c/o headache andelevated BP at home. Pt had several severe range pressures there and received a 20mg and 40mg dose of IV labetalol prior to transfer. Pt was started on magnesium (4g/2g) and transferred here for care. PNC comp by chron HTN on labetalol 200mg tid and procardia 30XL/d and asthma. SCANLON was initially 7-8 and is now 08/12. Labs at [facility] were all normal. PMH: Current meds: albuterol [...] 2001 Date of Service: 01/20/2025 Requesting Provider: Zeb Gonzalez MD Consultation due to: Chronic hypertension [...] not taking: Reported on 12/12/2024) nystatin (MYCOSTATIN) 250872 UNIT/GM powder As Needed. ALLERGIES Erythromycin SOCIAL [...] which greater than 50% was spent in ufbg-xp-[id number] consultation and coordination of care. Akanksha Moore [...] Wiseman RN Outcome: Progressing 01/20/2025 0540 by eFlecia Wiseman RN Outcome: Progressing 01/20/2025 0540 by [...] Transition of Care 01/20/2025 0540 by Felecia Wismean RN Outcome: Progressing 01/20/2025 0540 by Felecia Wiseman RN Outcome: Progressing 01/20/2025 0540 by Felecia Wiseman RN Outcome: Progressing Goal Outcome Evaluation: documented in this encounter Plan of Treatment Not on file documented as of this encounter Procedures Procedure Name Priority Date/Time Associated Diagnosis Comments [facility] STAT 01/20/2025 10:43 AM EDT [...] 01/17/2025 documented in this encounter Results * [facility] (01/20/2025 10:43 AM EDT) Anatomical Region Laterality Modality Ultrasound 01/20/2025 10:4 2 AM EDT Narrative 01/20/2025 11:40 AM EDT PAT NAME: FILI ROSEN MED REC#: [id number] DA: [id number] PAT GEND: F PAT TYPE: I EXAM MYRON: [id number] REF PHYS PEPITO BUITRAGO Comparison Studies The [...] EFW (oz) 1 oz EFW by: Hadlock ([id number]) Extended Cav. septi pel. tr 5.1 mm Consulting Application Engineer 5.1 mm Head / Face / Neck Cephalic index 0.79 23% Nicolaides Extremities / Bony Struc FL / BPD 0.79 FL / HC 0.21 FL / AC 0.22 Other Structures FHR 138 bpm General Evaluation Cardiac activity present. FHR 138 bpm. movements present. Presentation cephalic. Placenta Placental site: anterior. Amniotic fluid Amount of AF: normal. MVP 5.1 cm. UDSTIN 12.1 cm. Q1 2.2 cm, Q2 4.7 cm, Q3 0.0 cm, Q4 5.1 cm. Anatomy Cranium: Normal Cavum septi pellucidi: Normal Cerebellum: suboptimal Cisterna magna: suboptimal Head / Neck Rt lateral ventricle: Normal Lt lateral ventricle: Normal Lips: Normal Profile: Normal Nose: Normal 4-chamber view: Appears normal RVOT view: Normal LVOT view: Normal Heart / Thorax 3-vessel view: Normal 3-kjuxzu-vkvimlc view: normal Stomach: Appears normal Kidneys: Appears normal Bladder: Appears normal Gender: female Wants to know gender: yes Doppler Arterial Umbilical A PI 0.82 51% Nasreen Umbilical A RI 0.58 55% Nasreen Umbilical A PS -49.55 cm/s Umbilical A ED -20.66 cm/s Umbilical A TAmax -35.93 cm/s Umbilical A MD -19.31 cm/s Umbilical A S / D 2.41 51% Nasreen Umbilical A HR 148 bpm Biophysical Profile [...] Recommend delivery at 37wks. Coding ====== Description: 75900-45 Follow Up Ultrasound Description: 96721-76 BPP without NST Description: 71772-63 Doppler Umbilical Artery Mechanical Project Manager: Delmy Xiong RDMS Physician: Akanksha Moore MD Electronically signed by: Akanksha Moore MD at: 11:27 Procedure Note Akanksha Moore MD - 01/21/2025 PAT NAME: FILI ROSEN MED REC#: [id number] DA: [id number] PAT GEND: F PAT TYPE: I EXAM MYRON: [id number] REF PHYS PEPITO BUITRAGO Comparison Studies The findings of this study are compared to the prior ultrasound studydated 12/12/24 Patient Status Inpatient Indication ======== CHTN. Rheumatoid arthritis. Maternal chiari malformation. Hx SVT withablation 2022. Vapes. Obesity BMI 34. Maternal Assessment Bxkddx152 cm Uyyxve64 kg Weight (lb)211 lb BMI34.32 kg/m Method ======= Transabdominal ultrasound examination. View: Adequate view ========= Beltran . Number of fetuses: 1 Dating ====== Method of dating:based on stated TIFFANY GA by prior [id number] w + 1 d TIFFANY by prior assessment:02/16/2025 Ultrasound examination on:01/20/2025 GA by U/S based upon:AC, BPD, Femur, HC GA by U/S36 w + 1 d TIFFANY by U/S:02/16/2025 Previous dating:based on stated TIFFANY, selected on 12/12/2024 Agreed TIFFANY of previous datin02/16/2025 Assigned:based on stated TIFFANY, selected on 01/20/2025 Assigned GA36 w + 1 d Assigned TIFFANY:02/16/2025 [id number] d Biometry Standard BPD89.1 mm 36w 0d 57% Hadlock QOM690.1 mm 38w 4d 81% Ermelinda HC330.1 mm 37w 4d 55% Hadlock AC312.4 mm 35w 1d 32% Hadlock Femur70.2 mm 36w 0d 42% Hadlock HC / AC1.06 EFW2,755 g 35w 5d 41% Hadlock EFW (lb)6 lb EFW (oz)1 oz EFW by:Hadlock ([id number]) Extended Cav. septi pel. tr5.1 mm Vp5.1 mm Head / Face / Neck Cephalic index0.79 23% Nicolaides Extremities / Bony Struc FL / BPD0.79 FL / HC0.21 FL / AC0.22 Other Structures BCV873 bpm General Evaluation Cardiac activity present. FHR [...] LVOT view:Normal Heart / Thorax 3-vessel view:Normal 7-qvllve-unwenag view:normal Stomach:Appears normal Kidneys:Appears normal Bladder:Appears normal [...] labs. Recommend delivery at 37wks. Coding ====== Description:42407-69 Follow Up Ultrasound Description:92400-02 BPP without NST Description:64342-28 Doppler Umbilical Artery Mechanical Project Manager: Delmy Xiong RDMS Physician: Akanksha Moore MD Electronically signed by: Akanksha Moore MD at: 11:27 Neymar Winters MD IM US ORDERABLES Edited Resul t - Final * Preeclampsia Panel (01/19/2025 9:10 AM EDT) Pathologist [facility] Alkaline Phosphatase 94 39 - 117 U/L 01/19/2025 10:11 AM EDT [facility] ALT (SGPT) 8 1 - 33 U/L 01/19/2025 10:11 AM EDT [facility] AST (SGOT) 11 1 - 32 U/L 01/19/2025 10:11 AM EDT [facility] Creatinine 0.58 0.57 - 1.00 mg/dL 01/19/2025 10:11 AM EDT [facility] Total Bilirubin 0.2 0.0 - 1.2 mg/dL 01/19/2025 10:11 AM EDT [facility] LDH 148 135 - 214 U/L 01/19/2025 10:11 AM EDT [facility] Uric Acid 5.2 2.4 - 5.7 mg/dL 01/19/2025 10:11 AM EDT [facility] Blood Venipuncture / Unknown 01/19/2025 9:10 AM EDT 01/19/2025 9:39 AM EDT Jeffery Cruz DO LAB BLOOD ORDERABLES Final Result [facility]
[address] [place] [address], * (ABNORMAL) CBC (No Diff) (01/19/2025 9:10 AM EDT) Pathologist [facility] WBC 7.71 3.40 - 10.80 10*3/mm3 01/19/2025 10:10 AM EDT [facility] RBC 3.25(L) 3.77 - 5.28 10*6/mm3 01/19/2025 10:10 AM EDT [facility] Hemoglobin 9.8(L) 12.0 - 15.9 g/dL 01/19/2025 10:10 AM EDT [facility] Hematocrit 29.5(L) 34.0 - 46.6 % 01/19/2025 10:10 AM EDT [facility] MCV 90.8 79.0 - 97.0 fL 01/19/2025 10:10 AM EDT [facility] MCH 30.2 26.6 - 33.0 pg 01/19/2025 10:10 AM EDT [facility] MCHC 33.2 31.5 - 35.7 g/dL 01/19/2025 10:10 AM EDT [facility] RDW 13.2 12.3 - 15.4 % 01/19/2025 10:10 AM EDT [facility] RDW-SD 43.2 37.0 - 54.0 fl 01/19/2025 10:10 AM EDT [facility] MPV 10.0 6.0 - 12.0 fL 01/19/2025 10:10 AM EDT [facility] Platelets 216 140 - 450 10*3/mm3 01/19/2025 10:10 AM T [facility] Blood Venipuncture / Unknown 01/19/2025 9:10 AM EDT 01/19/2025 9:39 AM EDT Jeffery Cruz DO LAB BLOOD ORDERABLES Final Result [facility]
[address] [place] [address], * (ABNORMAL) Protein, Urine, 24 Hour - Urine, Clean Catch (01/19/2025 7:36 AM EDT) Protein, 24H Urine 262.2(H) 0.0 - 150.0 mg/24hours 01/19/2025 8:10 AM EDT [facility] 24H Urine Volume 5,350 mL 01/19/2025 8:10 AM EDT [facility] Time (Hours) 24 hrs 01/19/2025 8:10 AM EDT [facility] 24 Hour Urine Urine specimen obtained by clean catch procedure / Unknown 01/19/2025 7:36 AM EDT 01/19/2025 7:36 AM EDT Narrative [facility] - 01/19/2025 8:10 AM EDT Reference ranges are based on a 24 hour period, interperet results accordingly. us Zeb Gonzalez MD URINE ORDERABLES Final Result Performing Organization Address City/[facility]/ZIP Co de Phone Number [facility]
[address] [place] [address], * ABO RH Specimen Verification (01/18/2025 1:33 AM EDT) ABO Type O 01/18/2025 1:42 PM EDT [facility] RH type Positive 01/18/2025 1:42 PM EDT [facility] Blood Venipuncture / Unknown 01/18/2025 1:33 AM EDT 01/18/2025 1:45 AM EDT us Zeb Gonzalez MD BLOOD BANK TEST ORDERABLES Sintia l Result Performing Organization Address City/[facility]/ZIP Co de Phone Number [facility]
[address] [place] [address], [place] [phone] * (ABNORMAL) Comprehensive Metabolic Panel (01/17/2025 11:50 PM EDT) Glucose 81 65 - 99 mg/dL 01/18/2025 12:36 AM EDT [facility] BUN 4.3(L) 6.0 - 20.0 mg/dL 01/18/2025 12:36 AM EDT [facility] Creatinine 0.46(L) 0.57 - 1.00 mg/dL 01/18/2025 12:36 AM [facility] Sodium 137 136 - 145 mmol/L 01/18/2025 12:36 AM [facility] Potassium 4.0 3.5 - 5.2 mmol/L 01/18/2025 12:36 AM [facility] Comment:Specimen hemolyzed. Result may be falsely elevated. Chloride 105 98 - 107 mmol/L 01/18/2025 12:36 AM [facility] CO2 17.5(L) 22.0 - 29.0 mmol/L 01/18/2025 12:36 AM [facility] Calcium 8.3(L) 8.6 - 10.5 mg/dL 01/18/2025 12:36 AM [facility] Total Protein 6.5 6.0 - 8.5 g/dL 01/18/2025 12:36 AM [facility] Albumin 3.6 3.5 - 5.2 g/dL 01/18/2025 12:36 AM [facility] ALT (SGPT) 10 1 - 33 U/L 01/18/2025 12:36 AM [facility] AST (SGOT) 19 1 - 32 U/L 01/18/2025 12:36 AM [facility] Alkaline Phosphatase 100 39 - 117 U/L 01/18/2025 12:36 AM [facility] Total Bilirubin 0.3 0.0 - 1.2 mg/dL 01/18/2025 12:36 AM [facility] Globulin 2.9 gm/dL 01/18/2025 12:36 AM [facility] Comment:Calculated Result A/G Ratio 1.2 g/dL 01/18/2025 12:36 AM [facility] BUN/Creatinine Ratio 9.3 7.0 - 25.0 01/18/2025 12:36 AM [facility] Anion Gap 14.5 5.0 - 15.0 mmol/L 01/18/2025 12:36 AM [facility] eGFR 138.1 >60.0 mL/min/1.7 3 01/18/2025 12:36 AM EDT [facility] Blood Venipuncture / Unknown 01/17/2025 11:50 PM EDT 01/18/2025 12:02 AM EDT Narrative [facility] - 01/18/2025 12:36 AM EDT GFR [...] ORDERABLES Final Resu lt Performing Organization Address City/[facility]/ZIP Co de Phone Number [facility]
[address] [place] [address], [place] [phone] * Uric Acid (01/17/2025 11:50 PM EDT) Uric Acid 4.6 2.4 - 5.7 mg/dL 01/18/2025 12:32 AM EDT [facility] Comment:Falsely depressed re sults may occur on samples drawn from patients receiving N-Acetylcysteine (NAC) or Metamizole. Blood Venipuncture / Unknown 01/17/2025 11:50 PM EDT 01/18/2025 12:02 AM EDT us Zeb Gonzalez MD LAB BLOOD ORDERABLES Final Resu lt [facility]
[address] [place] [address], [place] [phone] * Lactate Dehydrogenase (01/17/2025 11:50 PM EDT) Pathologist [facility] LDH 210 135 - 214 U/L 01/18/2025 12:37 AM EDT [facility] Comment:Specimen hemolyzed. Results may be affected. Blood Venipuncture / Unknown 01/17/2025 11:50 PM EDT 01/18/2025 12:02 AM EDT us Zeb Gonzalez MD LAB BLOOD ORDERABLES Final Resu lt [facility]
[address] [place] [address], * Type & Screen (01/17/2025 11:50 PM EDT) Pathologist [facility] ABO Type O 01/18/2025 1:10 AM EDT [facility] RH type Positive 01/18/2025 1:10 AM EDT [facility] Antibody Screen Negative 01/18/2025 1:10 AM EDT [facility] T&S Expiration Date 01/20/2025 11:59:59 PM 01/18/2025 1:10 AM EDT [facility] Blood Venipuncture / Unknown 01/17/2025 11:50 PM EDT 01/18/2025 12:30 AM EDT us Zeb Gonzalez MD BLOOD BANK TEST ORDERABLES Edit ed Result - Final [facility]
[address] [place] [address], * Treponema pallidum AB w/Reflex RPR (01/17/2025 11:50 PM EDT) Pathologist [facility] Treponemal AB Total Non-Reacti ve Non-React chip 01/18/2025 12:27 PM EDT [facility] Blood Venipuncture / Unknown 01/17/2025 11:50 PM EDT 01/18/2025 12:02 AM EDT Narrative [facility] - 01/18/2025 12:27 PM EDT Reactive results will reflex RPR testing. Zeb Gonzalez MD LAB BLOOD ORDERABLES Final Resu lt [facility]
[address] [place] [address], * (ABNORMAL) CBC (No Diff) (01/17/2025 11:50 PM EDT) WBC 11.12(H) 3.40 - 10.80 10*3/mm3 01/18/2025 12:04 AM EDT [facility] RBC 3.83 3.77 - 5.28 10*6/mm3 01/18/2025 12:04 AM EDT [facility] Hemoglobin 11.8(L) 12.0 - 15.9 g/dL 01/18/2025 12:04 AM EDT [facility] Hematocrit 33.6(L) 34.0 - 46.6 % 01/18/2025 12:04 AM EDT [facility] MCV 87.7 79.0 - 97.0 fL 01/18/2025 12:04 AM EDT [facility] MCH 30.8 26.6 - 33.0 pg 01/18/2025 12:04 AM EDT [facility] MCHC 35.1 31.5 - 35.7 g/dL 01/18/2025 12:04 AM EDT [facility] RDW 12.9 12.3 - 15.4 % 01/18/2025 12:04 AM EDT [facility] RDW-SD 41.0 37.0 - 54.0 fl 01/18/2025 12:04 AM EDT [facility] MPV 10.0 6.0 - 12.0 fL 01/18/2025 12:04 AM EDT [facility] Platelets 274 140 - 450 10*3/mm3 01/18/2025 12:04 AM EDT [facility] Blood Venipuncture / Unknown 01/17/2025 11:50 PM EDT 01/18/2025 12:01 AM EDT Zeb Gonzalez MD LAB BLOOD ORDERABLES Final Resu lt [facility]
[address] [place] [address], * LABS SCANNED (01/17/2025) [facility] LAB BLOOD ORDERABLES Final Re sult * Telemetry Scan (01/17/2025) [facility] Onbase ECG ORDERABLES Final Result documented [...] Given 01/19/2025 8:15 AM EDT 81 mg fovqitmipr-ofgklyfvgwwlz-vvmldcmz (FIORICET, ESGIC) 50-325-40 MG per tablet 2 [...] 5-8 0545 (Given - Provider: Atiya Hicks, GREGG)1726 (Given - Provider: Flakito Tineo RN) 0536 [...] NPO. documented in this encounter Care Teams Seamless Tube Drawer Relationship Specialty Start Date End Date Destiny Seymour PA [address] [place] [address] [place] [address] [facility] [place] [address] PCP - General Physician Learn To Swim Instructor 09/14/22 documented as of this encounter
[2025-02-01] VITALS (10 sets, daily range): BP systolic 151–181; BP diastolic 79–95; PULSE 51–72; RESP 12–16; TEMP 36.5–36.8; O2SAT 96–99; BMI 31.3
--- NOTE | 2025-02-01 17:14 | PC.NURSE ---
paged dr dee
--- NOTE | 2025-02-01 17:20 | PC.NURSE ---
sourav harrison spoke with dr dee, he stated that he wanted pt to go straight to OBGYN. 20G LAC placed per pt request. pt transported to ob unit via wheelchair
--- OUTSIDE RECORDS SUMMARY | 2025-02-01 17:21 | XMS_ITS | Encounter Summary ---
Author Organization [facility] Address [address] [place] [address] Care Team Providers Care Rubber Off Name Role Phone Destiny Seymour Primary Care Provider [phone] Encounter Details Date Type Department Care Team (Latest Contact Info) Description 01/17/2025 Travel 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 Tobacco Use Types Packs/Day Years Used Date Smoking Tobacco: Never Passive Smoke Exposure: Past Smokeless Tobacco: Never Alcohol Use Standard Drinks/Week Comments Not Currently 2 (1 standard drink = 0.6 oz pur e alcohol) socially [facility] Utilities Answer Date Recorded In the past 12 months has [employer] electric, gas, oil, or water company threatened [...] and heating? Not hard at all 01/17/2025 [facility] [place] [facility] Occupat ional Health - Occupational Stress [...] GED or equivalent No 01/17/2025 Preferred Language Canadian 01/17/2025 PHQ-2 Answer Date Recorded Patient Health [...] 11:07 PM HARLANT Atiya Gordon RN * [place] Suicide Severity Rating Scale (Screener/Recent Self-Report) Question [...] on filedocumented in this encounter Care Teams Rubber Off Relationship Specialty Start Date End Date Destiny Seymour PA [address] [place] [address] [facility] [address] [place] [address] PCP - General Physician Yard Person 09/14/22 documented as of this encounter
--- OUTSIDE RECORDS SUMMARY | 2025-02-01 17:21 | XMS_ITS | Encounter Summary ---
Author Organization [facility] Address [address] [place] [address] Care Team Providers Care Package Center Supervisor Name Role Phone Destiny Seymour Primary Care Provider [phone] Encounter Details Date Type Department Care Team [...] on filedocumented in this encounter Care Teams Package Center Supervisor Relationship Specialty Start Date End Date Destiny Seymour PA [address] [address] PCP - General Physician Induction Furnace Operator 09/14/22 documented as of this encounter
--- OUTSIDE RECORDS SUMMARY | 2025-02-01 17:21 | XMS_ITS | Clinical Summary ---
Author Organization [facility] Address [address] [place] [address] Phone Care Team Providers Care Staff Internist Office Based Only Name Role Phone Unavailable Primary Care Provider Unavailabl e Allergies No known active allergies Active Problems Problem Noted Date Diagnosed Date S/P RF ablation operation for arrhythmia 023 Overview (03/02/2023): EPS, SVT Ablation 11/25/22-Dr. Demetrio Pearson @ [facility] SVT (supraventricular tachycardia) Surgical History Surgery Date Site/Laterality Comments CYST REMOVAL 08/31/2020 - 09/30/2020 Right R Hand Cyst Removal ABLATION OF DYSRHYTHMIC FOCUS 11/25/2022 EPS, SVT Ablation-Dr. Demetrio Pearson @ [facility] Medical History Medical History Date [...]
--- OUTSIDE RECORDS SUMMARY | 2025-02-01 17:21 | XMS_ITS | Clinical Summary ---
Author Organization Healthcare Address [address] [place] [address] Care Team Providers Care Clinical Lab Clerk Name Role Phone Leah Jasso APRN Primary Care Provider [phone] Family History Medical History Relation Name Comments [...] 19+ 3-dose series) 2020 UKY-Pap Smear 2022 [id number]-54 Vaccine (1 - 20 24-25 season) 2024 [...] complete this [place] [id number] [place] Care Teams Clinical Lab Clerk Relationship Specialty Start Date End Date Leah Jasso APRN [address] [place] [address] PCP - General 11/13/20
--- OUTSIDE RECORDS SUMMARY | 2025-02-01 17:21 | XMS_ITS | Clinical Summary ---
Author Organization [facility] Address [address] [place] [address] Care Team Providers Care Threading Machine Tender Name Role Phone Destiny Seymour Primary Care Provider [phone] Allergies Active Allergy Reactions Criticality Noted Date [...] ued(Stop Taking at Discharge ) nystatin (MYCOSTATIN) 856546 UNIT/GM powder As Needed. 08/23/19 25 025 [...] 01/20/2025 12:12 PM EDT Hospital Encounter [facility] [address] [place] [address] Zeb Gonzalez MD Discharge Disposition: Home or Self Care 01/17/2025 Travel 12/12/2024 1:45 PM EDT Office Visit [facility] [address] [place] [address] John Mendoza MD Chronic hypertension complicating or reason for care during , second trimester (Primary Dx) 12/12/2024 1:26 PM EDT - 12/12/2024 11:59 PM EDT Hospital Encounter [facility] [address] [place] [address] John Mendoza MD Paroxysmal SVT (supraventricular tachycardia); Chronic hypertension complicating or reason for care during , second trimester Discharge Disposition: Home or Self Care 12/12/2024 Travel 11/05/2024 1:30 PM EDT - 11/05/2024 11:59 PM EDT Hospital Encounter [facility] [address] [place] [address] Pepito Smiley, HTN in , chronic; Hx of preeclampsia, prior , currently ; SVT (supraventricular tachycardia); , unspecified gestational age Discharge Disposition: Home or Self Care 11/05/2024 1:30 PM EDT Office Visit [facility]IC[facility] [address] [facility] [address] [place] [address] John Mendoza MD Paroxysmal SVT [...] = 0.6 oz pur e alcohol) socially [facility] Utilities Answer Date Recorded In the past 12 months has [employer], gas, oil, or water [employer] threatened to shut off services in your [...] heating? Not hard at all 01/17/2025 [facility] [place] of Occupat ional Health - Occupational Stress [...] GED or equivalent No 01/17/2025 Preferred Language Kosovan 01/17/2025 PHQ-2 Answer Date Recorded Patient Health [...] Procedure Name Priority Date/Time Associated Diagnosis Comments [facility] STAT 01/20/2025 10:43 [...] - TELEMETRY 01/17/2025 SCANNED - LABS 01/17/2025 [facility] Routine 12/12/2024 2:10 PM EDT Paroxysmal SVT (supraventricular tachycardia) Chronic hypertension complicating or reason for care during , second trimester [facility] Routine 11/05/2024 2:49 PM EDT HTN in , chronic Hx of preeclampsia, prior , currently SVT (supraventricular tachycardia) , unspecified gestational age from Last 3 Months Results * [facility] (01/20/2025 10:43 AM EDT) Only the most recent of3 resultswithin the time period is included. Anatomical Region Laterality Modality Ultrasound 01/20/2025 10:4 2 AM EDT Narrative 01/20/2025 11:40 AM EDT PAT NAME: FILI PHILLIP MED REC#: [id number] DA: 2000 PAT GEND: F PAT TYPE: I EXAM MYRON: [id number] REF PHYS PEPITO SMILEY Comparison Studies The [...] EFW (oz) 1 oz EFW by: Hadlock ([id number]) Extended Cav. septi pel. tr 5.1 mm Granite Setter 5.1 mm Head / Face / Neck [...] Normal Heart / Thorax 3-vessel view: Normal 2-cmggal-wbytqdp view: normal Stomach: Appears normal Kidneys: Appears [...] Recommend delivery at 37wks. Coding ====== Description: 42844-85 Follow Up Ultrasound Description: 30180-43 BPP without NST Description: 65234-22 Doppler Umbilical Artery Wet Pour Mixer: Delmy Xiong RDMS Physician: Akanksha Moore MD Electronically signed by: Akanksha Moore MD at: 11:27 Procedure Note Akanksha Moore MD - 01/21/2025 PAT NAME: FILI PHILLIP MED REC#: [id number] DA: 2000 PAT GEND: F PAT TYPE: I EXAM MYRON: [id number] REF PHYS PEPITO SMILEY Comparison Studies The findings of this study are compared to the prior ultrasound studydated 12/12/24 Patient Status Inpatient Indication ======== CHTN. Rheumatoid arthritis. Maternal chiari malformation. Hx SVT withablation 2022. Vapes. Obesity BMI 34. Maternal Assessment Rrxgpm851 cm Otirky81 kg Weight (lb)211 lb BMI34.32 kg/m Method ======= Transabdominal ultrasound examination. View: Adequate view ========= Beltran . Number of fetuses: 1 Dating ====== Method of dating:based on stated TIFFANY GA by prior dqliimsnmv83 w + 1 d TIFFANY by prior assessment:02/16/2025 Ultrasound examination on:01/20/2025 GA by U/S based upon:AC, BPD, Femur, HC GA by U/S36 w + 1 d TIFFANY by U/S:02/16/2025 Previous dating:based on stated TIFFANY, selected on 12/12/2024 Agreed TIFFANY of previous datin02/16/2025 Assigned:based on stated TIFFANY, selected on 01/20/2025 Assigned GA36 w + 1 d Assigned TIFFANY:02/16/2025 lavbvv755 d Biometry Standard BPD89.1 mm 36w 0d 57% Hadlock SJR506.1 mm 38w 4d 81% Ermelinda HC330.1 mm 37w 4d 55% Hadlock AC312.4 mm 35w 1d 32% Hadlock Femur70.2 mm 36w 0d 42% Hadlock HC / AC1.06 EFW2,755 g 35w 5d 41% Hadlock EFW (lb)6 lb EFW (oz)1 oz EFW by:Hadlock ([id number]) Extended Cav. septi pel. tr5.1 mm Vp5.1 mm Head / Face / Neck Cephalic index0.79 23% Nicolaides Extremities / Bony Struc FL / BPD0.79 FL / HC0.21 FL / AC0.22 Other Structures WFC982 bpm General Evaluation Cardiac activity present. FHR [...] LVOT view:Normal Heart / Thorax 3-vessel view:Normal 9-vnmtjm-qhufizk view:normal Stomach:Appears normal Kidneys:Appears normal Bladder:Appears normal [...] labs. Recommend delivery at 37wks. Coding ====== Description:90140-87 Follow Up Ultrasound Description:54611-91 BPP without NST Description:33858-76 Doppler Umbilical Artery Wet Pour Mixer: Delmy Xiong RDMS Physician: Akanksha Moore MD Electronically signed by: Akanksha Moore MD at: 11:27 us Neymar Winters MD [facility] US ORDERABLES Edited Resul t - Final * Preeclampsia Panel (01/19/2025 9:10 AM EDT) Alkaline Phosphatase 94 39 - 117 U/L 01/19/2025 10:11 AM EDT [facility] ALT (SGPT) 8 1 - 33 U/L 01/19/2025 10:11 AM EDT [facility] AST (SGOT) 11 1 - 32 U/L 01/19/2025 10:11 AM EDT [facility] Creatinine 0.58 0.57 - 1.00 mg/dL 01/19/2025 10:11 AM EDT [facility] Total Bilirubin 0.2 0.0 - 1.2 mg/dL 01/19/2025 10:11 AM EDT [facility] LDH 148 135 - 214 U/L 01/19/2025 10:11 AM EDT [facility] Uric Acid 5.2 2.4 - 5.7 mg/dL 01/19/2025 10:11 AM EDT [facility] Blood Venipuncture / Unknown 01/19/2025 9:10 AM EDT 01/19/2025 9:39 AM EDT Jeffery Cruz DO LAB BLOOD ORDERABLES Final Result [facility]
[address] [place] [address], * (ABNORMAL) CBC (No Diff) (01/19/2025 9:10 AM EDT) Only the most recent of2 resultswithin the time period is included. WBC 7.71 3.40 - 10.80 10*3/mm3 01/19/2025 10:10 AM EDT [facility] RBC 3.25(L) 3.77 - 5.28 10*6/mm3 01/19/2025 10:10 AM EDT [facility] Hemoglobin 9.8(L) 12.0 - 15.9 g/dL 01/19/2025 10:10 AM EDT [facility] Hematocrit 29.5(L) 34.0 - 46.6 % 01/19/2025 10:10 AM EDT [facility] MCV 90.8 79.0 - 97.0 fL 01/19/2025 10:10 AM EDT [facility] MCH 30.2 26.6 - 33.0 pg 01/19/2025 10:10 AM EDT [facility] MCHC 33.2 31.5 - 35.7 g/dL 01/19/2025 10:10 AM EDT [facility] RDW 13.2 12.3 - 15.4 % 01/19/2025 10:10 AM EDT [facility] RDW-SD 43.2 37.0 - 54.0 fl 01/19/2025 10:10 AM EDT [facility] MPV 10.0 6.0 - 12.0 fL 01/19/2025 10:10 AM EDT [facility] Platelets 216 140 - 450 10*3/mm3 01/19/2025 10:10 AM EDT [facility] Blood Venipuncture / Unknown 01/19/2025 9:10 AM EDT 01/19/2025 9:39 AM EDT Jeffery Cruz DO LAB BLOOD ORDERABLES Final Result [facility]
[address] [place] [address], [place] [phone] * (ABNORMAL) Protein, Urine, 24 Hour - Urine, Clean Catch (01/19/2025 7:36 AM EDT) Protein, 24H Urine 262.2(H) 0.0 - 150.0 mg/24hours 01/19/2025 8:10 AM EDT [facility] 24H Urine Volume 5,350 mL 01/19/2025 8:10 AM EDT [facility] Time (Hours) 24 hrs 01/19/2025 8:10 AM EDT [facility] 24 Hour Urine Urine specimen obtained by clean catch procedure / Unknown 01/19/2025 7:36 AM EDT 01/19/2025 7:36 AM EDT Narrative [facility] - 01/19/2025 8:10 AM EDT Reference ranges are based on a 24 hour period, interperet results accordingly. us Zeb Gonzalez MD URINE ORDERABLES Final Result Performing Organization Address City/[facility]/ZIP Co de Phone Number [facility]
[address] [place] [address], * ABO RH Specimen Verification (01/18/2025 1:33 AM EDT) ABO Type O 01/18/2025 1:42 PM EDT [facility] RH type Positive 01/18/2025 1:42 PM EDT [facility] Blood Venipuncture / Unknown 01/18/2025 1:33 AM EDT 01/18/2025 1:45 AM EDT us Zeb Gonzalez MD BLOOD BANK TEST ORDERABLES Sintia l Result Performing Organization Address [facility] Co de Phone Number [facility]
[address] [place] [address], [place] [phone] * Treponema pallidum AB w/Reflex RPR (01/17/2025 11:50 PM EDT) Treponemal AB Total Non-Reacti ve Non-React chip 01/18/2025 12:27 PM EDT [facility] Blood Venipuncture / Unknown 01/17/2025 11:50 PM EDT 01/18/2025 12:02 AM EDT Narrative [facility] - 01/18/2025 12:27 PM EDT Reactive results will reflex RPR testing. us Zeb Gonzalez MD LAB BLOOD ORDERABLES Final Resu lt Performing Organization Address [facility] Co de Phone Number [facility]
[address] [place] [address], [place] [phone] * Type & Screen (01/17/2025 11:50 PM EDT) ABO Type O 01/18/2025 1:10 AM EDT [facility] BB [facility] RH type Positive 01/18/2025 1:10 AM EDT [facility] Antibody Screen Negative 01/18/2025 1:10 AM EDT [facility] T&S Expiration Date 01/20/2025 11:59:59 PM 01/18/2025 1:10 AM EDT [facility] Blood Venipuncture / Unknown 01/17/2025 11:50 PM EDT 01/18/2025 12:30 AM EDT us Zeb Gonzalez MD BLOOD BANK TEST ORDERABLES Edit ed Result - Final Performing Organization Address [facility] Co de Phone Number [facility] LAB[facility]
[address] [place] [address], [place] [phone] * Uric Acid (01/17/2025 11:50 PM EDT) Uric Acid 4.6 2.4 - 5.7 mg/dL 01/18/2025 12:32 AM EDT [facility] Comment:Falsely depressed re sults may occur on samples drawn from patients receiving N-Acetylcysteine (NAC) or Metamizole. Blood Venipuncture / Unknown 01/17/2025 11:50 PM EDT 01/18/2025 12:02 AM EDT us Zeb Gonzalez MD LAB BLOOD ORDERABLES Final Resu lt Performing Organization Address City/[facility]/ZIP Co de Phone Number [facility]
[address] [place] [address], [place] [phone] * Lactate Dehydrogenase (01/17/2025 11:50 PM EDT) LDH 210 135 - 214 U/L 01/18/2025 12:37 AM EDT [facility] Comment:Specimen hemolyzed. Results may be affected. Blood Venipuncture / Unknown 01/17/2025 11:50 PM EDT 01/18/2025 12:02 AM EDT us Zeb Gonzalez MD LAB BLOOD ORDERABLES Final Resu lt [facility]
[address] [place] [address], * (ABNORMAL) Comprehensive Metabolic Panel (01/17/2025 11:50 PM EDT) Glucose 81 65 - 99 mg/dL 01/18/2025 12:36 AM EDT [facility] BUN 4.3(L) 6.0 - 20.0 mg/dL 01/18/2025 12:36 AM EDT [facility] Creatinine 0.46(L) 0.57 - 1.00 mg/dL 01/18/2025 12:36 AM EDT [facility] Sodium 137 136 - 145 mmol/L 01/18/2025 12:36 AM EDT [facility] Potassium 4.0 3.5 - 5.2 mmol/L 01/18/2025 12:36 AM EDT [facility] Comment:Specimen hemolyzed. Result may be falsely elevated. Chloride 105 98 - 107 mmol/L 01/18/2025 12:36 AM EDT [facility] CO2 17.5(L) 22.0 - 29.0 mmol/L 01/18/2025 12:36 AM EDT [facility] Calcium 8.3(L) 8.6 - 10.5 mg/dL 01/18/2025 12:36 AM EDT [facility] Total Protein 6.5 6.0 - 8.5 g/dL 01/18/2025 12:36 AM EDT [facility] Albumin 3.6 3.5 - 5.2 g/dL 01/18/2025 12:36 AM EDT [facility] ALT (SGPT) 10 1 - 33 U/L 01/18/2025 12:36 AM EDT [facility] AST (SGOT) 19 1 - 32 U/L 01/18/2025 12:36 AM EDT [facility] Alkaline Phosphatase 100 39 - 117 U/L 01/18/2025 12:36 AM EDT [facility] Total Bilirubin 0.3 0.0 - 1.2 mg/dL 01/18/2025 12:36 AM EDT [facility] Globulin 2.9 gm/dL 01/18/2025 12:36 AM EDT [facility] Comment:Calculated Result A/G Ratio 1.2 g/dL 01/18/2025 12:36 AM EDT [facility] BUN/Creatinine Ratio 9.3 7.0 - 25.0 01/18/2025 12:36 AM EDT [facility] Anion Gap 14.5 5.0 - 15.0 mmol/L 01/18/2025 12:36 AM T [facility] eGFR 138.1 >60.0 mL/min/1.7 3 01/18/2025 12:36 AM EDT [facility] Blood Venipuncture / Unknown 01/17/2025 11:50 PM EDT 01/18/2025 12:02 AM EDT [facility] - 01/18/2025 12:36 AM EDT [...] LAB BLOOD ORDERABLES Final Resu lt [facility]
[address] [place] [address], * Telemetry Scan (01/17/2025) [facility] Onbase ECG ORDERABLES Final Result * LABS SCANNED (01/17/2025) [facility] Onbase LAB BLOOD ORDERABLES Final Re sult from Last 3 Months [facility] [place] [phone] [facility] * CPR (Attempt to Resuscitate) (Latest Code Status on File) Date Activated Date Inactivated Comments 01/17/2025 11:22 PM 01/20/2025 2:14 PM Question Answer Comments Code Status (Patient has no pulse and is not breathing): CPR (Attempt to Resuscitate) Medical Interventions (Patie nt has pulse or is breathing): Full Support Level Of Support Discussed With: Patient Care Teams Threading Machine Tender Relationship Specialty Start Date End Date Destiny Seymour PA [address] [place] [address] PCP - General Physician Line Crew Supervisor 09/14/22
--- OUTSIDE RECORDS SUMMARY | 2025-02-01 17:22 | XMS_ITS | Patient Health Record ---
Author Organization [facility] Address [address] [place] [id number] Care Team Providers Care Railroad Maintenance Clerk Name Role Phone Destiny Seymour Unavailable [phone] Allergies Allergen (clinical drug ingredient) Drug/Non Drug [...] Last Name Dawn Referring Provider Speciality Physician Assistant Quality Manager Referred Provider Rheumatology, . Referred Provider Specialty Rheumatology General Notes Destiny Seymour 2023 11:16:04 AM > PT needs an appt with Pepper Bonilla Brynn 02/12/2024 11:44:56 AM > sent referral to Dr. Jacobs via [facility] website Referral Priority Routine Diagnosis 1 Rheumatoid arthritis with positive rheumatoid factor, involving unspecified site (M05.9) Referral Organization [facility] Referring Provider First Name Destiny Referring Provider Last Name Dawn Referring Provider Speciality Physician Assistant Quality Manager Referred Provider Rheumatology, . Referred Provider [...] W/U Status Risk Notes Problem Supraventricular tachycardia (6105145) SVT (supraventricular tachycardia) (I47.1) Active confirmed Problem Paresthesia (37419284) Paresthesia (R20.2) Active confirmed Problem Mixed anxiety and depressive disorder (727384157) Depression with anxiety (F41.8) Active confirmed Problem Thyroid nodule (935523771) Thyroid nodule (E04.1) Active confirmed Problem Panic disorder (693934087) Panic attacks (F41.0) Active confirmed Problem Refractory migraine with aura (557962939) Intractable migraine with aura without status migrainosus (G43.119) Active confirmed Problem Cardiac arrhythmia (080531349) Cardiac arrhythmia, unspecified cardiac arrhythmia type (I49.9) Active confirmed Problem Refractory migraine (377995829) Intractable migraine without status migrainosus, unspecified migraine type (G43.919) Active confirmed Problem Thyromegaly (7480036) Thyromegaly (E01.0) Active confirmed Problem Migraine (57349109) Migraine syn drome (G43.909) Active confirmed Problem Gastroesophageal reflux disease (999003340) Gastroesophageal reflux disease, unspecified whether esophagitis present (K21.9) Active confirmed Problem Rheumatoid arthritis (46249697) Rheumatoid arthritis, involving unspecified site, unspecified whether rheumatoid factor present (M06.9) Active confirmed Problem Rheumatoid arthritis (96742929) Rheumatoid arthritis with positive rheumatoid factor, involving unspecified site (M05.9) Active confirmed Problem Tobacco user (901564887) Vaping nicotine dependence, non-tobacco product (F17.200) Active confirmed Problem Drug-induced insomnia (85548739119894) 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) Active confirmed Problem Compression of brain (41651512) 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) Active confirmed Vital Signs Heart Rate 85 /min 04/24/2024 Blood pressure diastolic 100 mm Hg 04/24/2024 Height 66 in 04/24/2024 Blood pressure systolic 134 mm Hg 04/24/2024 Weight 187.0 lbs 04/24/2024 BMI 30.18 kg/m2 04/24/2024 Encounters Encounter [facility] Date Provider [facility] [address] [place] [id number] 02/08/2024 Destiny Seymour Gastroesophageal ref lux disease, unspecified whether esophagitis present K21.9 and Rheumatoid arthritis, involving unspecified site, unspecified whether rheumatoid factor present M06.9 [facility] [address] [place] [id number] 04/24/2024 Destiny Seymour Strep pharyngitis J0 2.0 and Rheumatoid arthritis with positive rheumatoid factor, involving unspecified site M05.9 [facility] [address] [place] [id number] 08/01/2024 Destiny Seymour Assessments Encounter Date Diagnosis [...] Insured Coverage Start Date Coverage End Date [facility] [employer] [facility] [address] [place] [address] [id number] FILI PHILLIP Self - patient is [...]
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
[2025-02-01 17:25] LABS: Microscopic, Urine URINE MICROSCOPIC (MICROSCOPIC)
--- NOTE | 2025-02-01 17:25 | PC.NURSE ---
HS notified of the need for a bed to admit to OB
[2025-02-01 17:30] LABS: Hematocrit 30.7 % (37.0-47.0); Hemoglobin 10.1 g/dL (12.2-16.2); Immature Granulocytes % 0.5 %; Mean Corpuscular HGB Conc 32.9 g/dL (31.8-35.4); Mean Corpuscular Hemoglobin 30.2 pg (27.0-31.2); Mean Corpuscular Volume 91.9 fl (81-99); Nucleated Red Blood Cells % 0 %; Platelet Count 279 K/mm3 (142-424); Red Blood Count 3.34 M/mm3 (4.20-5.40); Red Cell Distribution Width-SD 41.2 fL; White Blood Count 7.6 K/mm3 (4.8-10.8)
[2025-02-01 17:33] LABS: Bilirubin,Urine Negative (Negative); Color,Urine YELLOW (Yellow); Glucose,Urine (UA) Negative (Negative); Ketones,Urine Negative (Negative); Leukocyte Esterase,Urine 2+ (Negative); PH,Urine 7.0 (5.0-8.5); Protein,Urine Negative (Negative); Specific Gravity, Urine 1.010 (1.005-1.030); Urobilinogen,Urine 0.2 EU/dl (0.2)
[2025-02-01 17:48] LABS: Albumin Level 3.1 g/dl (3.5-5.0); Chloride 104 mmol/L (98-107); Potassium 4.2 mmoL/L (3.5-5.1); Sodium 135 mmol/L (136-145)
[2025-02-01 17:50] LABS: Blood Urea Nitrogen 8 mg/dl (7-17)
[2025-02-01 17:51] LABS: Alanine Aminotransferase 31 U/L (12-78); Albumin/Globulin Ratio 0.8 (1.1-1.8); Alkaline Phosphatase 122 U/L (38-126); Anion Gap 9.2 mEq/L (5-15); Aspartate Amino Transferase 35 U/L (14-36); Bilirubin,Total 0.2 mg/dl (0.2-1.3); Calcium 9.5 mg/dl (8.4-10.2); Carbon Dioxide 26 mmol/L (22.0-30.0); Creatinine Clearance Estimated 209 mL/min (50-200); Creatinine,Serum 0.60 mg/dl (0.52-1.04); Estimated Glomerular Filt Rate 124 ml/min (>60); GFR (African American) 150 ML/MIN (>60); Globulin 3.7 g/dL (1.3-3.2); Glucose 94 mg/dl (74-100); Total Protein,Serum 6.8 g/dl (6.3-8.2)
[2025-02-01 17:57] LABS: Bacteria,Urine Trace /lpf
[2025-02-01 18:22] LABS: Uric Acid 5.9 mg/dl (2.5-6.2)
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
--- NOTE | 2025-02-01 20:25 | ECG_ITS ---
APPROVED REPORT Exam: Resting ECG HR:50 bpm ECG Measurements Heart Rate 50 AXES WY 160 P -2 QRSd 94 QRS 27 QT 444 T 37 QTc 418 Conclusion SINUS BRADYCARDIA WITH OCCASIONAL SUPRAVENTRICULAR PREMATURE compelxes ABNORMAL ECG UNCONFIRMED REPORT Electronically signed by : Jarocho Goel MD 02/03/2025 07:25:35
--- NOTE | 2025-02-01 20:30 | PC.NURSE ---
Called hospitalist due to patient stating she had had some chest pressure earlier and that she recalled that she hadn't taken her nifedipine since being discharged from the hospital after delivery. EKG order obtained at this time and orders recieved to hold labetalol but administer a dose of nifedipine tonight.
--- NOTE | 2025-02-01 20:58 | PC.NURSE ---
Order received from the hospitalist to defer continuous telemetry unless patient patient complains of chest pain or follow up troponin is abnormal. Will continue to monitor.
[2025-02-01 21:49] LABS: Troponin I < 0.01 ng/ml (0.00-0.034)
--- NOTE | 2025-02-01 23:08 | EXP.EVENT.NO ---
Patient had presented with some chest discomfort. Heart rate sinus rhythm with a rate of 55. EKG obtained showing T wave inversions in leads V2 through 4 (anterior). Has a history of ablation due to SVT. Initial troponin less than 0.01. Chest pressure resolved. Review of chart shows echo in July with normal BiV function and preserved ejection fraction. EKG obtained 11/30/2024 that shows similar inversion but less amplitude in leads V2 and III and EKG from 12/03/2023 shows same inversion in V2 through 4. Will obtain 3-hour Trope. If remains negative, have low concern for any acute cardiac pathology. Continue to address blood pressure with nifedipine. Holding labetalol due to symptomatic bradycardia
[2025-02-02] VITALS: BP 159/84; PULSE 74; RESP 16; TEMP 36.8; O2SAT 98
[2025-02-02 01:11] LABS: Troponin I < 0.01 ng/ml (0.00-0.034)
[2025-02-02 04:00] VITALS: BP 145/75; PULSE 66; RESP 16; TEMP 36.8; O2SAT 98
[2025-02-02 07:34] LABS: Hematocrit 32.7 % (37.0-47.0); Hemoglobin 10.9 g/dL (12.2-16.2); Immature Granulocytes % 0.9 %; Mean Corpuscular HGB Conc 33.3 g/dL (31.8-35.4); Mean Corpuscular Hemoglobin 30.4 pg (27.0-31.2); Mean Corpuscular Volume 91.3 fl (81-99); Nucleated Red Blood Cells % 0 %; Platelet Count 298 K/mm3 (142-424); Red Blood Count 3.58 M/mm3 (4.20-5.40); Red Cell Distribution Width-SD 40.9 fL; White Blood Count 7.0 K/mm3 (4.8-10.8)
[2025-02-02 07:41] LABS: Albumin Level 3.2 g/dl (3.5-5.0); Chloride 103 mmol/L (98-107); Potassium 4.1 mmoL/L (3.5-5.1); Sodium 135 mmol/L (136-145)
[2025-02-02 07:44] LABS: Alanine Aminotransferase 30 U/L (12-78); Albumin/Globulin Ratio 0.8 (1.1-1.8); Alkaline Phosphatase 112 U/L (38-126); Anion Gap 13.1 mEq/L (5-15); Aspartate Amino Transferase 30 U/L (14-36); Bilirubin,Total 0.3 mg/dl (0.2-1.3); Blood Urea Nitrogen 7 mg/dl (7-17); Calcium 9.4 mg/dl (8.4-10.2); Carbon Dioxide 23 mmol/L (22.0-30.0); Creatinine Clearance Estimated 251 mL/min (50-200); Creatinine,Serum 0.50 mg/dl (0.52-1.04); Estimated Glomerular Filt Rate 153 ml/min (>60); GFR (African American) 185 ML/MIN (>60); Globulin 3.8 g/dL (1.3-3.2); Glucose 90 mg/dl (74-100); Total Protein,Serum 7.0 g/dl (6.3-8.2)
[2025-02-02 07:45] LABS: Magnesium 1.6 mg/dl (1.6-2.3)
[2025-02-02] MEDS: PRENATAL MULTIVITAMIN W/IRON 1 EACH PO (08:24)
[2025-02-02 08:25] VITALS: BP 142/83; PULSE 84; RESP 16; TEMP 36.6; O2SAT 98
--- NOTE | 2025-02-02 08:56 | HMH.PHAINT1 ---
Pharmacy Intervention Comments: MEDICATION RECONCILIATION COMPLETE USING EXTERNAL PHARMACY FILL HISTORY, RECENT HOSPITAL DISCHARGE LIST, AND ALPHONSO REPORT.
--- NOTE | 2025-02-02 09:26 | P.DS_ITS ---
General Admission date:: 02/01/25 Discharge date: 02/02/25 HPI HPI HPI: Patient is a 24-year-old female with day 5 who has past medical history of hypertension with preeclampsia who presents to the hospital due to elevated blood pressures. Patient mentions she has been checking her blood pressures at home and it has been in the 170s systolic, she denies chest pain shortness of breath nausea vomiting diarrhea constipation dysuria fevers and chills. Patient takes labetalol at home, patient mentions she has been on labetalol since her . Medicine has been consulted for management of hypertension Hospital Course Hospital Course Hospital Course: She was admitted and observed throughout the day and overnight. Her heart rate was in the 50s and 60s while on labetalol. She was symptomatic as result of the lower heart rate. As result of this we have stopped her labetalol. She has had her nifedipine increased to 90 mg XL and she will take this every evening. Her blood pressures are in the 140-150 range over 80-90 range. This is her normal blood pressure. Heart rate is now in the 70s to 80s. She will be discharged home to follow-up with Dr. Smiley in approximately 3 days time. We will make arrangements for her to have a renal ultrasound to rule out renal artery stenosis. She will take 90 mg XL of nifedipine daily. Exam Data for Last 24 hours Vital signs and Labs for Last 24 Hours: Temp Pulse Resp BP Pulse Ox O2 Del Method 97.8 F 84 16 142/83 H 98 Room Air 02/02/25 08:25 02/02/25 08:25 02/02/25 08:25 02/02/25 08:25 02/02/25 08:25 02/02/25 08:25 Laboratory Results - last 24 hr 02/01/25 17:19: Urine Color Yellow, Urine Appearance Clear, Urine pH 7.0, Ur Specific [place] 1.010, Urine Protein Negative, Urine Glucose (UA) Negative, Urine Ketones Negative, Urine Blood 3+ A, Urine Nitrate Negative, Urine Bilirubin Negative, Urine Urobilinogen 0.2, Ur Leukocyte Esterase 2+ A, Urine RBC 5-10, Urine WBC 10-20, Ur Squamous Epith Cells 5-10, Urine Bacteria Trace 02/01/25 17:23: WBC 7.6, RBC 3.34 L, Hgb 10.1 L, Hct 30.7 L, MCV 91.9, MCH 30.2, MCHC 32.9, RDW 12.3, Plt Count 279 D, MPV 9.5, Neut % (Auto) 75.5, Lymph % (Auto) 17.9, [place] % (Auto) 4.6, Eos % (Auto) 1.2, Baso % (Auto) 0.3, Neut # (Auto) 5.8, Lymph # (Auto) 1.4, [place] # (Auto) 0.4, Eos # (Auto) 0.1, Baso # (Auto) 0.0, Sodium 135 L, Potassium 4.2, Chloride 104, Carbon Dioxide 26, Anion Gap 9.2, BUN 8, Creatinine 0.60, Estimated Creat Clear 209, Estimated GFR 124, Est GFR ( Amer) 150, Glucose 94, Uric Acid 5.9, Calcium 9.5, Total Bilir ubin 0.2, AST 35, ALT 31, Alkaline Phosphatase 122, Total Protein 6.8, Albumin 3.1 L, Globulin 3.7 H, Albumin/Globulin Ratio 0.8 L 02/01/25 21:17: Troponin I < 0.01 02/02/25 00:30: Troponin I < 0.01 02/02/25 07:20: WBC 7.0, RBC 3.58 L, Hgb 10.9 L, Hct 32.7 L, MCV 91.3, MCH 30.4, MCHC 33.3, RDW 12.2, Plt Count 298, MPV 9.5, Neut % (Auto) 76.8, Lymph % (Auto) 16.0, [place] % (Auto) 4.9, Eos % (Auto) 1.1, Baso % (Auto) 0.3, Neut # (Auto) 5.4, Lymph # (Auto) 1.1, [place] # (Auto) 0.3, Eos # (Auto) 0.1, Baso # (Auto) 0.0, Sodium 135 L, Potassium 4.1, Chloride 103, Carbon Dioxide 23, Anion Gap 13.1, BUN 7, Creatinine 0.50 L, Estimated Creat Clear 251, Estimated GFR 153, Est GFR ( Amer) 185 D, Glucose 90, Calcium 9.4, Magnesium 1.6, Total Bilirubin 0.3, AST 30, ALT 30, Alkaline Phosphatase 112, Total Protein 7.0, Albumin 3.2 L, Globulin 3.8 H, Albumin/Globulin Ratio 0.8 L I & O for Last 24 hours: Intake & Output 01/30/25 01/31/25 02/01/25 02/02/25 11:59 11:59 11:59 11:59 Output Total 0 / 0 Balance 0 / 0 Weight 200 lb Constitutional Constitutional: no acute distress *Routine HEENT Exam Head: Present normocephalic *Routine Neck Exam Neck: Present supple and full ROM *Routine Respiratory Exam Respiratory: Present normal respiratory effort; Absent accessory muscle use *Routine Cardiovascular Exam Cardiovascular: Present RRR *Routine Abdominal Exam Abdominal: Present soft and normoactive bowel sounds; Absent tenderness Comments: Her incision is clean and dry. Results Data Completed and Pending Labs on day of discharge: Labs from last 24 hours 02/02/25 02/02/25 02/01/25 07:20 00:30 21:17 WBC 7.0 RBC 3.58 L Hgb 10.9 L Hct 32.7 L MCV 91.3 MCH 30.4 MCHC 33.3 RDW 12.2 Plt Count 298 MPV 9.5 Neut % (Auto) 76.8 Lymph % (Auto) 16.0 [place] % (Auto) 4.9 Eos % (Auto) 1.1 Baso % (Auto) 0.3 Neut # (Auto) 5.4 Lymph # (Auto) 1.1 [place] # (Auto) 0.3 Eos # (Auto) 0.1 Baso # (Auto) 0.0 Sodium 135 L Potassium 4.1 Chloride 103 Carbon Dioxide 23 Anion Gap 13.1 BUN 7 Creatinine 0.50 L Estimated Creat Clear 251 Estimated GFR 153 Est GFR ( Amer) 185 D Glucose 90 Uric Acid Calcium 9.4 Magnesium 1.6 Total Bilirubin 0.3 AST 30 ALT 30 Alkaline Phosphatase 112 Troponin I < 0.01 < 0.01 Total Protein 7.0 Albumin 3.2 L Globulin 3.8 H Albumin/Globulin Ratio 0.8 L Urine Color Urine Appearance Urine pH Ur Specific [place] Urine Protein Urine Glucose (UA) Urine Ketones Urine Blood Urine Nitrate Urine Bilirubin Urine Urobilinogen Ur Leukocyte Esterase Urine RBC Urine WBC Ur Squamous Epith Cells Urine Bacteria 02/01/25 02/01/25 17:23 17:19 WBC 7.6 RBC 3.34 L Hgb 10.1 L Hct 30.7 L MCV 91.9 MCH 30.2 MCHC 32.9 RDW 12.3 Plt Count 279 D MPV 9.5 Neut % (Auto) 75.5 Lymph % (Auto) 17.9 [place] % (Auto) 4.6 Eos % (Auto) 1.2 Baso % (Auto) 0.3 Neut # (Auto) 5.8 Lymph # (Auto) 1.4 [place] # (Auto) 0.4 Eos # (Auto) 0.1 Baso # (Auto) 0.0 Sodium 135 L Potassium 4.2 Chloride 104 Carbon Dioxide 26 Anion Gap 9.2 BUN 8 Creatinine 0.60 Estimated Creat Clear 209 Estimated GFR 124 Est GFR ( Amer) 150 Glucose 94 Uric Acid 5.9 Calcium 9.5 Magnesium Total Bilirubin 0.2 AST 35 ALT 31 Alkaline Phosphatase 122 Troponin I Total Protein 6.8 Albumin 3.1 L Globulin 3.7 H Albumin/Globulin Ratio 0.8 L Urine Color Yellow Urine Appearance Clear Urine pH 7.0 Ur Specific [place] 1.010 Urine Protein Negative Urine Glucose (UA) Negative Urine Ketones Negative Urine Blood 3+ A Urine Nitrate Negative Urine Bilirubin Negative Urine Urobilinogen 0.2 Ur Leukocyte Esterase 2+ A Urine RBC 5-10 Urine WBC 10-20 Ur Squamous Epith Cells 5-10 Urine Bacteria Trace DS: Diagnosis Discharge Diagnosis (1) delivery delivered: Status: Acute Code(s): O82 - Encounter for delivery without indication (2) heart rate/rhythm abnormality affecting management of mother: Status: Acute Code(s): O36.8390 - Maternal care for abnormalities of the heart rate or rhythm, unspecified trimester, not applicable or unspecified (3) Chronic hypertension with superimposed preeclampsia: Status: Acute Code(s): O11.9 - Pre-existing hypertension with pre-eclampsia, unspecified trimester Problem details: 24 hour urine: 300mg on 12/01/24 (150mg on 10/19/24). UPC at 34 weeks 2 days: 0.095 (4) History of cardiac radiofrequency ablation: Status: Acute Code(s): Z98.890 - Other specified postprocedural states (5) HTN (hypertension): Status: Acute Code(s): I10 - Essential (primary) hypertension Qualifiers: Hypertension type: primary hypertension Qualified Code(s): I10 - Essential (primary) hypertension Meds Home Medications and Allergies Home Medications ?Medication ?Instructions ?Recorded ?Confirmed ?Type vitamins no.159-iron 1 tab PO DAILY 30 days # 30 tabs 06/05/24 02/01/25 Rx fumarate 28 mg-folic acid 800 mcg tablet ( Vitamin) albuterol sulfate 90 mcg/actuation 2 puff inhalation Q 6H PRN SOB #8.5 10/31/24 02/01/25 Rx aerosol inhaler grams famotidine 20 mg tablet (Pepcid) 20 mg PO DAILY #30 ta bs 12/31/24 02/01/25 Rx acetaminophen 500 mg tablet 500 mg PO Q6H PRN fever or pain 01/30/25 02/01/25 Rx #30 tabs oxycodone 5 mg tablet 5 mg PO Q8H PRN pain #15 tab s 01/30/25 02/01/25 Rx sennosides 8.6 mg tablet (Senna 8.6 mg PO BIDP PRN Con stipation 01/30/25 Rx Lax) #60 tabs simethicone 125 mg tablet 125 mg PO DAILY PRN abdomina l 01/30/25 02/01/25 Rx distention #60 tabs nifedipine 30 mg tablet,extended 90 mg (3 x 30 mg) PO DAILY #30 tabs 02/02/25 02/01/25 Rx release New Prescriptions to Start Prescriptions: Allergies Allergy/AdvReac Type Severity Reaction Status Date / Time erythromycin base Allergy Intermediate soa, hives Verified 01/16/25 14:44 (ERYTHROMYCIN BASE) clonidine Allergy Unknown Verified 01/16/25 14:44 allergy reaction Discharge Plan Disposition Patient Disposition: Home, Self-Care Follow up Plan Follow up with: Demetra Smiley DO [Staff Physician, OUT OF TOWN COLLECTION CLERK] - 02/13/25 11:00 am J Luis Chan MD [Staff Physician, Cardiology] - Enter time for follow up Referral Note: Call their office on monday to be seen this week. Prescriptions/Medication Reconciliation: Continued famotidine [Pepcid] 20 mg tablet 20 mg PO DAILY Qty: 30 2RF albuterol sulfate 90 mcg/actuation HFA aerosol inhaler 2 puff inhalation Q6H PRN (Reason: SOB) Qty: 8.5 0RF acetaminophen 500 mg tablet 500 mg PO Q6H PRN (Reason: fever or pain) Qty: 30 3RF oxycodone 5 mg tablet 5 mg PO Q8H PRN (Reason: pain) Qty: 15 0RF sennosides [Senna Lax] 8.6 mg Tablet 8.6 mg PO BIDP PRN (Reason: Constipation) Qty: 60 2RF simethicone 125 mg tablet 125 mg PO DAILY PRN (Reason: abdominal distention) Qty: 60 2RF Vitamin 28 mg iron- 800 mcg tablet 1 tab PO DAILY 30 Days Qty: 30 5RF Changed nifedipine 30 mg tablet extended release 90 mg PO DAILY Qty: 30 2RF Discontinued ibuprofen 800 mg tablet 800 mg PO Q8H PRN (Reason: pain) Qty: 60 2RF labetalol 300 mg tablet 300 mg PO TID Qty: 90 0RF Problem Reconciliation Problems Reviewed?: Yes Patient Discharge Instructions ACTIVITY: No heavy lifting DIET: continue same diet Patient Instructions: DI for High Blood Pressure, DI for Bradycardia Print Language: Sinhala Providers Primary Care Provider: Destiny Seymour Admit Provider: Oliverio Amanda Attending Provider: Oliverio Amanda
--- NOTE | 2025-02-02 10:06 | PC.NURSE ---
Discharge education provided, questions encouraged and answered. Pt. v/u.
--- NOTE | 2025-02-03 09:09 | PC.NURSE ---
urine culture forwarded to dr. dee
== END 2025-02-02 10:20 | disposition home or self-care (01) ==
LOC: ER 17:20 → OB 17:45
PROVIDERS: Internal Medicine Adolescent Medicine; Nurse Practitioner; Admitting Provider Nurse Practitioner Obstetrics & Gynecology; Emergency Provider Student in an Organized Health Care Education/Training Program; PCP Physician Assistant; Visit Provider Nurse Practitioner Obstetrics & Gynecology
DX: O11.3 Pre-existing hypertension with pre-eclampsia, third trimester (principal); O10.013 Pre-existing essential hypertension complicating pregnancy, third trimester; O82 Encounter for cesarean delivery without indication; O36.8930 Maternal care for other specified fetal problems, third trimester, not applicable or unspecified; O99.333 Smoking (tobacco) complicating pregnancy, third trimester; O99.353 Diseases of the nervous system complicating pregnancy, third trimester; O99.891 Other specified diseases and conditions complicating pregnancy; F31.9 Bipolar disorder, unspecified; F17.290 Nicotine dependence, other tobacco product, uncomplicated; G43.109 Migraine with aura, not intractable, without status migrainosus; R00.1 Bradycardia, unspecified; M06.9 Rheumatoid arthritis, unspecified; Z3A.34 34 weeks gestation of pregnancy; Z37.9 Outcome of delivery, unspecified; Z87.59 Personal history of other complications of pregnancy, childbirth and the puerperium; Z88.5 Allergy status to narcotic agent; Z88.1 Allergy status to other antibiotic agents; Z98.890 Other specified postprocedural states; Z79.899 Other long term (current) drug therapy
CPT/HCPCS: 36415; 80053; 81001; 83735; 84484; 84550; 85025; 87086; 93005; 99285; G0378

== ENCOUNTER 2025-02-02 21:12 | Observation (INO) | payer BC, SELFPAY ==
--- OUTSIDE RECORDS SUMMARY | 2024-02-08 06:45 | XMS_ITS ---
Author Organization [facility] Address [address] [place] [phone] Care Team Providers Care Monkey Trainer Name Role Phone Destiny Seymour Unavailable [phone] Allergies Allergen (clinical drug ingredient) Drug/Non Drug Allergy documented on EMR Reaction Allergy Type Onset Date Status erythromycin Erythromycin Unknown Drug Allergy A ctive Reason For Referral Diagnosis 1 Rheumatoid arthritis , involving unspecified site, unspecified whether rheumatoid factor present (M06.9) Referral Organization [facility] Referring Provider First Name Destiny Referring Provider Last Name Dawn Referring Provider Speciality Physician Blood Collector Referred Provider Rheumatology, . Referred Provider Specialty Rheumatology General Notes Destiny Seymour 2023 11:16:04 AM > PT needs an appt with Pepper Bonilla Brynn 02/12/2024 11:44:56 AM > sent referral to Dr. Jacobs via [facility] website Referral Priority Routine REASON FOR [...] needed Orally Once a day, prn Active Fqmiwrhjvf-REGW-Xxutykpe 50-325-40 MG 1 tablet as needed Orally [...] Status Risk Notes Problem Gastroesophageal reflux disease (417096405) Gastroesophageal reflux disease, unspecified whether esophagitis present [...] Provider Diagnosis [place] [address] [facility] [address] [place], [place] [phone] 02/08/2024 Destiny Seymour Gastroesophageal ref lux disease, [...] Notes * TANK PHILLIPOB:2000 (24 yo F)Acc No.[id number]:02/08/2024 Progress Notes Patient: FILI MONAHAN Provider: ETHEL Valentin :2000 A ge:23 Y S ex:Female Date:02/08/2024 Phone: Address:[address] [place] [address] , [place], [id number] Subjective: * Chief Complaints: * 1 . follow up ER, gerd. * HPI: G astroenterology: The pt is here for a follow up on an [facility] ER visit due to shortness [...] the morning Orally once daily , Not-Taking Fozluzcaid-CMUI-Buukvwya 50-325-40 MG Tablet 1 tablet as needed [...] * Images: Billing Information: * Visit Code: 05507 Office Visit, Est Pt., Level 4. * Procedure Codes: * Electronic signature of ETHEL Edwards on 02/02/2025 at 09:20 PM EDT Sign off status: Pending * Provider: ETHEL Valentin Date: 0 02/08/2024 Generated for Printi ng/Faxing/eTransmitting on: 02/02/2025 09:20 PM EDT History and Physical Notes * [...]
--- OUTSIDE RECORDS SUMMARY | 2024-04-24 07:30 | XMS_ITS ---
Author Organization Bradley Address [address] [facility] [address] [phone] Care Team Providers Care Technical Sales Consultant Name Role Phone Destiny Seymour Unavailable [phone] Allergies Allergen (clinical drug ingredient) Drug/Non Drug [...] Last Name Dawn Referring Provider Speciality Physician Wire Frame Lamp Shade Maker Referred Provider Rheumatology, . Referred Provider Specialty [...] 04/24/2024 Encounters Encounter Location Date Provider Diagnosis [facility] [address] [place], [place] [phone] 04/24/2024 Destiny Seymour Strep pharyngitis J0 2.0 [...] Notes * TANK ROSENOB:2000 (24 yo F)Acc No.[id number]:04/24/2024 Progress Notes Patient: FILI MONAHAN Provider: ETHEL Valentin :2000 A ge:23 Y S ex:Female Date:04/24/2024 Phone: Address:[address] [place] [address] Brad Ayon enmanuel, [id number] Subjective: * Chief Complaints: * 1 . [...] the morning Orally once daily , Discontinued Hbtjvznduz-IXGX-Mnhfamii 50-325-40 MG Tablet 1 tablet as needed [...] * Images: Billing Information: * Visit Code: 10541 Office Visit, Est Pt., Level 3. * Procedure Codes: 66950 STREP A ASSAY W/OPTIC. Modifiers: QW * Electronic signature of ETHEL Edwards on 02/02/2025 at 09:20 PM EDT Sign off status: Pending * Provider: ETHEL Valentin Date: 1 Generated for Melisa gonzalez/Anel/Misbahitting on: 0 02/02/2025 09:20 PM EDT History and Physical [...]
--- OUTSIDE RECORDS SUMMARY | 2024-06-14 09:15 | XMS_ITS ---
Author Organization Bradley Address 1210 [facility] [address] [place] [phone] Care Team Providers Care Demographer Name Role Phone Dawn Destiny Unavailable [phone] Allergies Allergen (clinical drug ingredient) Drug/Non Drug [...] Encounter Location Date Provider Diagnosis [facility] [address] [place] [phone] 06/14/2024 Destiny Seymour Plan Of Treatment No Information Progress Notes * TANK PHILLIPOB:2000 (24 yo F)Acc No.[id number]:06/14/2024 Progress Notes Patient: FILI MONAHAN Provider: ETHEL Valentin :2000 A ge:24 Y S ex:Female Date:06/14/2024 Phone: Address:[address] [place] [address] [address] [place] Espinal-[id number] Subjective: * Chief Complaints: * 1 . [...] 08/15/2023 Generated for Melisa gonzalez/Anel/Misbahitting on: 0 02/02/2025 09:20 PM EDT History and Physical Notes * HPI (History of Present Illness) Category Sub-Category Detail Notes Category Not es HPI Patient is here today for Pt is here toda y for a check up
--- OUTSIDE RECORDS SUMMARY | 2024-12-12 13:26 | XMS_ITS | Encounter Summary ---
Author Organization [facility] Address [address] [id number] Care Team Providers Care Field Manager Name Role Phone Destiny Seymour Primary Care Provider [phone] Reason for Referral * Diagnostic Imaging (Routine) - Closed Specialty Diagnoses / Procedures Referred By Contac t Referred To Contact Radiology Diagnoses Paroxysmal SVT (supraventricular tachycardia) Chronic hypertension complicating or reason for care during , second trimester Procedures [facility] [place] [address] [place] [address] [place] [address] Phone: tel: fax: Referral ID Status Reason Start Date Expiration Date Visits Re quested Visits Authorized [id number] Closed 11/05/2024 02/04/2026 1 1 Reason for Visit * Diagnostic Imaging (Routine) - Closed Specialty Diagnoses / Procedures Referred By Contac t Referred To Contact Radiology Diagnoses Paroxysmal SVT (supraventricular tachycardia) Chronic hypertension complicating or reason for care during , second trimester Procedures [facility] [place] John Mendoza MD [address] [facility] [address] [place] [address] Phone: tel: fax: Referral ID Status Reason Start Date Expiration Date Visits Re quested Visits Authorized [id number] Closed 11/05/2024 02/04/2026 1 1 Encounter Details Date Type Department Care Team (Late st Contact Info) Description 12/12/2024 1:26 PM EDT - 12/12/2024 11:59 PM EDT Hospital Encounter [facility] PER DIAG CTR [address] [place] [address] John Mendoza MD [address] [place] [address] Paroxysmal SVT (supraventricular tachycardia); Chronic hypertension complicating [...] tablet by mouth Daily. 11/29/2024 nystatin (MYCOSTATIN) 319533 UNIT/GM powder As Needed. 08/23/2024 documented as of this encounter Plan of Treatment Not on file documented as of this encounter Procedures Procedure Name Priority Date/Time Associated Diagnosis Comments [facility] Routine 12/12/2024 2:10 PM EDT Paroxysmal SVT (supraventricular tachycardia) Chronic hypertension complicating or reason for care during , second trimester documented in this encounter Results * [facility] (12/12/2024 2:10 PM EDT) Anatomical Region Laterality Modality Ultrasound 12/12/2024 2:01 PM EDT Narrative 12/12/2024 2:18 PM EDT PAT NAME: FILI PHILLIP MED REC#: [id number] DA: 2000 PAT GEND: F PAT TYPE: O EXAM XIAO: [id number] REF PHYS PEPITO BUITRAGO Comparison Studies The [...] EFW (oz) 11 oz EFW by: Hadlock (IRK-DY-DO-FL) Extended Cav. septi pel. tr 4.8 mm Animation Camera Operator 6.1 mm Nasal bone 10.4 mm Head [...] Normal Heart / Thorax 3-vessel view: Normal 9-qpjrjd-tytfogp view: normal Stomach: Appears normal Kidneys: Appears [...] normal. Recommendation 4 weeks. Coding ======= Description: 61924-97 Follow Up Ultrasound Description: 47773-68 BPP without NST Senior Instructor: Delmy Xiong RDMS Physician: John Mendoza MD, FACOG Electronically signed by: John Mendoza MD, FACOG at: 14:18 Procedure Note John Mendoza MD - 12/12/2024 PAT NAME: FILI PHILLIP [facility] REC#: [id number] DA: 2000 PAT GEND: F PAT TYPE: O EXAM XIAO: [id number] REF PHYS PEPITO BUITRAGO Comparison Studies The findings of this study are compared to the prior ultrasound studydated 11/05/24 Patient Status Outpatient Indication ======== CHTN. Rheumatoid arthritis. Maternal chiari malformation. Hx SVT withablation 2022. Vapes. Obesity BMI 33. Maternal Assessment Tdnquq387 cm Efediy63 kg Weight (lb)205 lb BMI33.34 kg/m Method ======= Transabdominal ultrasound examination. View: Adequate view ========= Beltran . Number of fetuses: 1 Dating ====== Method of dating:based on stated TIFFANY GA by prior hhcindoaer65 w + 4 d TIFFANY by prior assessment:02/16/2025 Ultrasound examination on:12/12/2024 GA by U/S based upon:AC, BPD, Femur, HC GA by U/S32 w + 0 d TIFFANY by U/S:02/06/2025 Previous dating:based on stated TIFFANY, selected on 11/05/2024 Agreed TIFFANY of previous datin02/16/2025 Assigned:based on stated TIFFANY, selected on 12/12/2024 Assigned GA30 w + 4 d Assigned TIFFANY:02/16/2025 pgkcog546 d Biometry Standard BPD81.3 mm 32w 5d 92% Hadlock KAO868.8 mm 33w 6d 98% Ermelinda HC300.1 mm 33w 2d 86% Hadlock AC256.3 mm 29w 6d 24% Hadlock Femur61.3 mm 31w 6d 71% Hadlock Fmghznl70.5 mm 30w 4d 55% Ermelinda HC / AC1.17 EFW1,681 g 30w 4d 52% Hadlock EFW (lb)3 lb EFW (oz)11 oz EFW by:Hadlock (CNT-EI-ZL-FL) Extended Cav. septi pel. tr4.8 mm Vp6.1 mm Nasal bone10.4 mm Head / Face / Neck Cephalic index0.78 39% Nicolaides Extremities / Bony Struc FL / BPD0.75 FL / HC0.20 FL / AC0.24 Other Structures FFQ710 bpm General Evaluation Cardiac activity present. FHR [...] LVOT view:Normal Heart / Thorax 3-vessel view:Normal 8-kdgpuv-nzescvm view:normal Stomach:Appears normal Kidneys:Appears normal Bladder:Appears normal [...] are normal. Recommendation 4 weeks. Coding ======= Description:73214-99 Follow Up Ultrasound Description: BPP without NST Senior Instructor: Delmy Xiong RDMS Physician: John Mendoza MD, FACOG Electronically signed by: John Mendoza MD, FACOG at: 14:18 us John Mendoza MD IMG US ORDERABLES Final Result documented in this encounter Visit Diagnoses Diagnosis Paroxysmal SVT (supraventricular tachycardia) Chronic hypertension complicating or reason for care during , second trimester documented in this encounter Care Teams Field Manager Relationship Specialty Start Date End Date Destiny Seymour PA [address] [facility] [address] [place] [address] PCP - General Physician Credit Assistant 09/14/22 documented as of this encounter
--- OUTSIDE RECORDS SUMMARY | 2024-12-12 13:45 | XMS_ITS | Encounter Summary ---
Author Organization [facility] Address [address] [place] [id number] Care Team Providers Care Airline Security Representative Name Role Phone Destiny Seymour Primary Care Provider [phone] Reason for Referral * Diagnostic Imaging (Routine) - Authorized Specialty Diagnoses / Procedures Referred By Contac t Referred To Contact Radiology Diagnoses Chronic hypertension complicating or reason for care during , second trimester Procedures [facility] David Mendoza MD [address] [facility] [address] [place] [address] Phone: tel: fax: [facility] US PER DIAG CTR [address] [place] [address] Phone: tel: Referral ID Status Reason Start Date Expiration Date V isits Requested Visits Authorized [id number] Authorized 12/13/2024 03/14/2026 1 1 Reason for Visit * Reason Comments CHTN; maternal SVT; RA; maternal chiari malf. Encounter Details Date Type Department Care Team (Late st Contact Info) Description 12/12/2024 1:45 PM EDT Office Visit [facility] MATERNAL MEDICINE [address] [facility] [address] [place] [address] David Mendoza MD [address] [facility] [address] [place] [id number] Chronic hypertension complicating or reason for care [...] mouth Daily., Disp: , Rfl: nystatin (MYCOSTATIN) 975850 UNIT/GM powder, As Needed., Disp: , Rfl: [...] CVS. David Mendoza MD, FACOG Maternal Medicine, [facility] documented in this encounter Plan of Treatment Scheduled Orders Name Type Priority Associated Diagnoses Orde r Schedule [facility] Imaging Routine Chronic hypertension complicating or reason for care during , second trimester Expected: 12/18/2024 (Approximate), Expires: 12/13/2025 documented as of this encounter Visit Diagnoses Diagnosis Chronic hypertension complicating or reason for care during , second trimester- Primary documented in this encounter Care Teams Airline Security Representative Relationship Specialty Start Date End Date Destiny Seymour PA [address] [place] [address] [facility] [address] [place] [address] PCP - General Physician Electroencephalograph Technician 09/14/22 documented as of this encounter
--- OUTSIDE RECORDS SUMMARY | 2025-01-17 22:36 | XMS_ITS | Encounter Summary ---
Author Organization [facility] Address [address] [place] [id number] Care Team Providers Care Cyber Security Name Role Phone Destiny Seymour Primary Care Provider [phone] Reason for Visit * Reason Comments Elevated [...] Hospital Encounter [facility] [address] [place] [id number] Zeb Gonzalez MD [address] [facility] [address] [place] [address] Discharge Disposition: Home or Self Care 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 Tobacco Use Types Packs/Day Years Used Date Smoking Tobacco: Never Passive Smoke Exposure: Past Smokeless Tobacco: Never Alcohol Use Standard Drinks/Week Comments Not Currently 2 (1 standard drink = 0.6 oz pur e alcohol) socially C Utilities Answer Date Recorded In the past 12 months has [employer], gas, oil, or water company threatened to [...] and heating? Not hard at all 01/17/2025 [facility] - Occupational Stress Questionnaire Answer Date [...] GED or equivalent No 01/17/2025 Preferred Language Guatemalan 01/17/2025 PHQ-2 Answer Date Recorded Patient Health [...] 11:07 PM EDT Atiya Gordon RN * [place] Suicide Severity Rating Scale (Screener/Recent Self-Report) Question [...] tablet Commonly known as: ADALAT CC nystatin 087245 UNIT/GM powder Commonly known as: MYCOSTATIN Disposition:Home or Self Care Follow up: She will have an-other NST later this week and is scheduled for an induction on 01/28 Neymar Winters MD documented in this encounter Discharge Instructions * Attachments The following attachments cannot be sent through Care Everywhere. * High Blood Pressure During (Guatemalan) documented in this encounter Medications at Time [...] 01/19/2025 7:25 AM EDT Fili Mercado Kenji [phone] 2000 Referring physician: Oliverio Amanda MD Chief [...] - 01/18/2025 7:18 AM EDT Fili Rosen [phone] 2000 Referring physician: Oliverio Amanda MD Chief [...] 01/17/2025 11:00 PM EDT Fili Rosen 2000 [phone] [phone] Referring physician: Oliverio Amanda MD CC: chron HTN with superimposed preeclampsia HPI: Patient is 24 y.o. female currently at 35w5d presented to [facility] for c/o headache andelevated BP at home. Pt had several severe range pressures there and received a 20mg and 40mg dose of IV labetalol prior to transfer. Pt was started on magnesium (4g/2g) and transferred here for care. PNC comp by chron HTN on labetalol 200mg tid and procardia 30XL/d and asthma. SCANLON was initially 7-8 and is now 08/12. Labs at [facility] were all normal. PMH: Current meds: albuterol [...] not taking: Reported on 12/12/2024) nystatin (MYCOSTATIN) 786066 UNIT/GM powder As Needed. ALLERGIES Erythromycin SOCIAL [...] which greater than 50% was spent in lmhz-bh-pqum consultation and coordination of care. Akanksha Moore [...] Procedure Name Priority Date/Time Associated Diagnosis Comments [facility] STAT 01/20/2025 10:43 AM [...] 01/17/2025 documented in this encounter Results * [facility] (01/20/2025 10:43 AM EDT) Anatomical Region Laterality Modality Ultrasound 01/20/2025 10:4 2 AM EDT Narrative 01/20/2025 11:40 AM EDT PAT NAME: FILI ROSEN MED REC#: [id number] DA: [id number] PAT GEND: F PAT TYPE: I EXAM MYRON: [id number] REF PHYS PEPITO BUITRAGO Comparison Studies The [...] EFW (oz) 1 oz EFW by: Hadlock ([id number]) Extended Cav. septi pel. tr 5.1 mm Hairspring Assembler 5.1 mm Head / Face / Neck [...] Normal Heart / Thorax 3-vessel view: Normal 1-dhxmyh-vsndvmw view: normal Stomach: Appears normal Kidneys: Appears [...] Recommend delivery at 37wks. Coding ====== Description: 74571-51 Follow Up Ultrasound Description: 99811-74 BPP without NST Description: 93990-45 Doppler Umbilical Artery Shipping Room Supervisor: Delmy Xiong RDMS Physician: Akanksha Moore MD Electronically signed by: Akanksha Moore MD at: 11:27 Procedure Note Akanksha Moore MD - 01/21/2025 PAT NAME: FILI ROSEN MED REC#: [id number] DA: [id number] PAT GEND: F PAT TYPE: I EXAM MYRON: [id number] REF PHYS PEPITO BUITRAGO Comparison Studies The findings of this study are compared to the prior ultrasound studydated 12/12/24 Patient Status Inpatient Indication ======== CHTN. Rheumatoid arthritis. Maternal chiari malformation. Hx SVT withablation 2022. Vapes. Obesity BMI 34. Maternal Assessment Pjyxcb387 cm Vuhbjp27 kg Weight (lb)211 lb BMI34.32 kg/m Method ======= Transabdominal ultrasound examination. View: Adequate view ========= Beltran . Number of fetuses: 1 Dating ====== Method of dating:based on stated TIFFANY GA by prior dbdlsedujd95 w + 1 d TIFFANY by prior assessment:02/16/2025 Ultrasound examination on:01/20/2025 GA by U/S based upon:AC, BPD, Femur, HC GA by U/S36 w + 1 d TIFFANY by U/S:02/16/2025 Previous dating:based on stated TIFFANY, selected on 12/12/2024 Agreed TIFFANY of previous datin02/16/2025 Assigned:based on stated TIFFANY, selected on 01/20/2025 Assigned GA36 w + 1 d Assigned TIFFANY:02/16/2025 ejpyfe304 d Biometry Standard BPD89.1 mm 36w 0d 57% Hadlock UIA403.1 mm 38w 4d 81% Ermelinda HC330.1 mm 37w 4d 55% Hadlock AC312.4 mm 35w 1d 32% Hadlock Femur70.2 mm 36w 0d 42% Hadlock HC / AC1.06 EFW2,755 g 35w 5d 41% Hadlock EFW (lb)6 lb EFW (oz)1 oz EFW by:Hadlock ([id number]-WS-EF-FL) Extended Cav. septi pel. tr5.1 mm Vp5.1 mm Head / Face / Neck Cephalic index0.79 23% Nicolaides Extremities / Bony Struc FL / BPD0.79 FL / HC0.21 FL / AC0.22 Other Structures SYL775 bpm General Evaluation Cardiac activity present. FHR [...] LVOT view:Normal Heart / Thorax 3-vessel view:Normal 9-hdyuwc-rtjvvgb view:normal Stomach:Appears normal Kidneys:Appears normal Bladder:Appears normal [...] labs. Recommend delivery at 37wks. Coding ====== Description:25033-68 Follow Up Ultrasound Description:66136-68 BPP without NST Description:99422-21 Doppler Umbilical Artery Shipping Room Supervisor: Delmy Xiong RDMS Physician: Akanksha Moore MD Electronically signed by: Akanksha Moore MD at: 11:27 Neymar Winters MD IM US ORDERABLES Edited Resul t - Final * Preeclampsia Panel (01/19/2025 9:10 AM EDT) Pathologist [facility] Alkaline Phosphatase 94 39 - 117 U/L [...] AM EDT 01/19/2025 9:39 AM EDT Jeffery rCuz DO LAB BLOOD ORDERABLES Final Result [facility]
[address] [place] [address], * (ABNORMAL) CBC (No Diff) (01/19/2025 9:10 AM EDT) Pathologist [facility] WBC 7.71 3.40 - 10.80 10*3/mm3 01/19/2025 [...] - 450 10*3/mm3 01/19/2025 10:10 AM T [facility] Blood Venipuncture / Unknown 01/19/2025 9:10 AM EDT 01/19/2025 9:39 AM EDT Jeffery Cruz DO LAB BLOOD ORDERABLES Final Result [facility]
[address] [place] [address], * (ABNORMAL) Protein, Urine, 24 Hour - [...] URINE ORDERABLES Final Result Performing Organization Address City/[facility]/ZIP Co de Phone Number [facility]
[address] [place] [address], * ABO RH Specimen Verification (01/18/2025 1:33 AM EDT) ABO Type O 01/18/2025 1:42 PM EDT [facility] RH type Positive 01/18/2025 1:42 PM EDT [facility] Blood Venipuncture / Unknown 01/18/2025 1:33 AM EDT 01/18/2025 1:45 AM EDT us Zeb Gonzalez MD BLOOD BANK TEST ORDERABLES Sintia l Result Performing Organization Address City/[facility]/ZIP Co de Phone Number [facility]
[address] [place] [address], [place] [phone] * (ABNORMAL) Comprehensive Metabolic Panel (01/17/2025 11:50 PM EDT) Glucose 81 65 - 99 mg/dL 01/18/2025 12:36 AM EDT [facility] BUN 4.3(L) 6.0 - 20.0 mg/dL 01/18/2025 12:36 AM EDT [facility] Creatinine 0.46(L) 0.57 - 1.00 mg/dL 01/18/2025 12:36 AM [facility] Sodium 137 136 - 145 mmol/L 01/18/2025 12:36 AM [facility] Potassium 4.0 3.5 - 5.2 mmol/L 01/18/2025 12:36 AM [facility] Comment:Specimen hemolyzed. Result may be falsely elevated. Chloride 105 98 - 107 mmol/L 01/18/2025 12:36 AM [facility] CO2 17.5(L) 22.0 - 29.0 mmol/L 01/18/2025 12:36 AM [facility] Calcium 8.3(L) 8.6 - 10.5 mg/dL 01/18/2025 12:36 AM [facility] Total Protein 6.5 6.0 - 8.5 g/dL 01/18/2025 12:36 AM [facility] Albumin 3.6 3.5 - 5.2 g/dL 01/18/2025 12:36 AM [facility] ALT (SGPT) 10 1 - 33 U/L 01/18/2025 12:36 AM [facility] AST (SGOT) 19 1 - 32 U/L 01/18/2025 12:36 AM [facility] Alkaline Phosphatase 100 39 - 117 U/L 01/18/2025 12:36 AM [facility] Total Bilirubin 0.3 0.0 - 1.2 mg/dL 01/18/2025 12:36 AM [facility] Globulin 2.9 gm/dL 01/18/2025 12:36 AM [facility] Comment:Calculated Result A/G Ratio 1.2 g/dL 01/18/2025 12:36 AM [facility] BUN/Creatinine Ratio 9.3 7.0 - 25.0 01/18/2025 12:36 AM [facility] Anion Gap 14.5 5.0 - 15.0 mmol/L 01/18/2025 12:36 AM [facility] eGFR 138.1 >60.0 mL/min/1.7 3 [...] ORDERABLES Final Resu lt Performing Organization Address City/[facility]/ZIP Co de Phone Number [facility]
[address] [place] [address], [place] [phone] * Uric Acid (01/17/2025 11:50 PM EDT) [...] Resu lt [facility]
[address] [place] [address], [place] [phone] * Lactate Dehydrogenase (01/17/2025 11:50 PM EDT) Pathologist [facility] LDH 210 135 - 214 U/L 01/18/2025 12:37 AM EDT [facility] Comment:Specimen hemolyzed. Results may be affected. Blood Venipuncture / Unknown 01/17/2025 11:50 PM EDT 01/18/2025 12:02 AM EDT us Zeb Gonzalez MD LAB BLOOD ORDERABLES Final Resu lt [facility]
[address] [place] [address], * Type & Screen (01/17/2025 11:50 PM EDT) Pathologist [facility] ABO Type O 01/18/2025 1:10 AM EDT [facility] RH type Positive 01/18/2025 1:10 AM EDT [facility] Antibody Screen Negative 01/18/2025 1:10 AM EDT [facility] T&S Expiration Date 01/20/2025 11:59:59 PM 01/18/2025 1:10 AM EDT [facility] Blood Venipuncture / Unknown 01/17/2025 11:50 PM EDT 01/18/2025 12:30 AM EDT us Zeb Gonzalez MD BLOOD BANK TEST ORDERABLES Edit ed Result - Final [facility]
[address] [place] [address], * Treponema pallidum AB w/Reflex RPR (01/17/2025 11:50 PM EDT) Pathologist [facility] Treponemal AB Total Non-Reacti ve Non-React chip 01/18/2025 12:27 PM EDT [facility] Blood Venipuncture / Unknown 01/17/2025 11:50 PM EDT 01/18/2025 12:02 AM EDT Narrative [facility] - 01/18/2025 12:27 PM EDT Reactive results will reflex RPR testing. Zeb Gonzalez MD LAB BLOOD ORDERABLES Final Resu lt [facility]
[address] [place] [address], * (ABNORMAL) CBC (No Diff) (01/17/2025 11:50 [...] Resu lt [facility]
[address] [place] [address], * LABS SCANNED (01/17/2025) [facility] LAB BLOOD ORDERABLES Final Re sult * Telemetry Scan (01/17/2025) [facility] Onbase ECG ORDERABLES Final Result documented [...] Given 01/19/2025 8:15 AM EDT 81 mg pvysvexptp-ktxpnkgoheqqw-vnuzylye (FIORICET, ESGIC) 50-325-40 MG per tablet 2 [...] Felecia Wiseman, GREGG) 08 (Given - Provider: Flkaito Tineo RN) NIFEdipine XL (PROCARDIA XL) 24 [...] 5-8 0545 (Given - Provider: Atiya Hicks, GREGG)1723 (Given - Provider: Flakito Tineo RN) 0536 [...] NPO. documented in this encounter Care Teams Cyber Security Relationship Specialty Start Date End Date Destiny Seymour PA [address] [place] [address] [place] [address] [facility] [address] PCP - General Physician Energy Advisor 09/14/22 documented as of this encounter
--- OUTSIDE RECORDS SUMMARY | 2025-02-02 21:20 | XMS_ITS | Clinical Summary ---
Author Organization 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 Demetrio Pearson @ [facility] SVT (supraventricular tachycardia) Surgical History Surgery Date Site/Laterality Comments CYST REMOVAL 08/31/2020 - 09/30/2020 Right R Hand Cyst Removal ABLATION OF DYSRHYTHMIC FOCUS 11/25/2022 EPS, SVT Ablation-Dr. Demetrio Pearson @ [facility] Medical History Medical History Date [...]
--- OUTSIDE RECORDS SUMMARY | 2025-02-02 21:20 | XMS_ITS | Clinical Summary ---
Author Organization [facility] Address [address] [place] [address] Care Team Providers Care Casting Operator Name Role Phone Destiny Seymour Primary Care Provider [phone] Allergies Active Allergy Reactions Criticality Noted Date [...] ued(Stop Taking at Discharge ) nystatin (MYCOSTATIN) 644982 UNIT/GM powder As Needed. 08/23/19 25 025 [...] - 01/20/2025 12:12 PM EDT Hospital Encounter [facility]TE[facility] [address] [place] [address] Zeb Gonzalez MD Discharge Disposition: Home or Self Care 01/17/2025 Travel 12/12/2024 1:45 PM EDT Office Visit [facility] [address] [place] [address] John Mendoza MD Chronic hypertension complicating or reason for care during , second trimester (Primary Dx) 12/12/2024 1:26 PM EDT - 12/12/2024 11:59 PM EDT Hospital Encounter PSYCHIATRIC US PER DIAG CTR [address] [place] [address] John Mendoza MD Paroxysmal SVT (supraventricular tachycardia); Chronic hypertension complicating or reason for care during , second trimester Discharge Disposition: Home or Self Care 12/12/2024 Travel 11/05/2024 1:30 PM EDT - 11/05/2024 11:59 PM EDT Hospital Encounter PSYCHIATRIC US PER [facility] [address] [place] [address] Pepito Smiley, HTN in , chronic; Hx of preeclampsia, prior , currently ; SVT (supraventricular tachycardia); , unspecified gestational age Discharge Disposition: Home or Self Care 11/05/2024 1:30 PM EDT Office Visit [facility] [address] [facility] [address] [place] [address] John Mendoza MD Paroxysmal SVT [...] = 0.6 oz pur e alcohol) socially [facility] Utilities Answer Date Recorded In the past 12 months has [employer], gas, oil, or water [employer] threatened to shut off services in your [...] and heating? Not hard at all 01/17/2025 [facility] of Occupat ional Health - Occupational Stress [...] GED or equivalent No 01/17/2025 Preferred Language Libyan 01/17/2025 PHQ-2 Answer Date Recorded Patient Health [...] Name Priority Date/Time Associated Diagnosis Comments [facility] STAT 01/20/2025 10:43 [...] - TELEMETRY 01/17/2025 SCANNED - LABS 01/17/2025 [facility] Routine 12/12/2024 2:10 PM EDT Paroxysmal SVT (supraventricular tachycardia) Chronic hypertension complicating or reason for care during , second trimester [facility] Routine 11/05/2024 2:49 PM EDT HTN in , chronic Hx of preeclampsia, prior , currently SVT (supraventricular tachycardia) , unspecified gestational age from Last 3 Months Results * [facility] (01/20/2025 10:43 AM EDT) Only the most recent of3 resultswithin the time period is included. Anatomical Region Laterality Modality Ultrasound 01/20/2025 10:4 2 AM EDT Narrative 01/20/2025 11:40 AM EDT PAT NAME: FILI PHILLIP MED REC#: [id number] DA: 2000 PAT GEND: F PAT TYPE: I EXAM MYRON: [id number] REF PHYS PEPITO SMILEY Comparison Studies The [...] EFW (oz) 1 oz EFW by: Hadlock ([id number]) Extended Cav. septi pel. tr 5.1 mm Continuity Writer 5.1 mm Head / Face / Neck [...] Normal Heart / Thorax 3-vessel view: Normal 9-qrrefm-wcbspge view: normal Stomach: Appears normal Kidneys: Appears [...] Recommend delivery at 37wks. Coding ====== Description: 77372-02 Follow Up Ultrasound Description: 45678-84 BPP without NST Description: 53666-30 Doppler Umbilical Artery Meat Counter Worker: Delmy Xiong RDMS Physician: Akanksha Moore MD Electronically signed by: Akanksha Moore MD at: 11:27 Procedure Note Akanksha Moore MD - 01/21/2025 PAT NAME: FILI PHILLIP MED REC#: [id number] DA: 2000 PAT GEND: F PAT TYPE: I EXAM MYRON: [id number] REF PHYS PEPITO SMILEY Comparison Studies The findings of this study are compared to the prior ultrasound studydated 12/12/24 Patient Status Inpatient Indication ======== CHTN. Rheumatoid arthritis. Maternal chiari malformation. Hx SVT withablation 2022. Vapes. Obesity BMI 34. Maternal Assessment Cbbafk271 cm Xonrew14 kg Weight (lb)211 lb BMI34.32 kg/m Method ======= Transabdominal ultrasound examination. View: Adequate view ========= Beltran . Number of fetuses: 1 Dating ====== Method of dating:based on stated TIFFANY GA by prior [id number] w + 1 d TIFFANY by prior assessment:02/16/2025 Ultrasound examination on:01/20/2025 GA by U/S based upon:AC, BPD, Femur, HC GA by U/S36 w + 1 d TIFFANY by U/S:02/16/2025 Previous dating:based on stated TIFFANY, selected on 12/12/2024 Agreed TIFFANY of previous datin02/16/2025 Assigned:based on stated TIFFANY, selected on 01/20/2025 Assigned GA36 w + 1 d Assigned TIFFANY:02/16/2025 [id number] d Biometry Standard BPD89.1 mm 36w 0d 57% Hadlock FZZ213.1 mm 38w 4d 81% Ermelinda HC330.1 mm 37w 4d 55% Hadlock AC312.4 mm 35w 1d 32% Hadlock Femur70.2 mm 36w 0d 42% Hadlock HC / AC1.06 EFW2,755 g 35w 5d 41% Hadlock EFW (lb)6 lb EFW (oz)1 oz EFW by:Hadlock ([id number]) Extended Cav. septi pel. tr5.1 mm Vp5.1 mm Head / Face / Neck Cephalic index0.79 23% Nicolaides Extremities / Bony Struc FL / BPD0.79 FL / HC0.21 FL / AC0.22 Other Structures YOL011 bpm General Evaluation Cardiac activity present. FHR [...] LVOT view:Normal Heart / Thorax 3-vessel view:Normal 8-tqicbr-nirmktr view:normal Stomach:Appears normal Kidneys:Appears normal Bladder:Appears normal [...] labs. Recommend delivery at 37wks. Coding ====== Description:61891-23 Follow Up Ultrasound Description:79434-32 BPP without NST Description:17615-45 Doppler Umbilical Artery Meat Counter Worker: Delmy Xiong RDMS Physician: Akanksha Moore MD Electronically signed by: Akanksha Moore MD at: 11:27 us Neymar Winters MD [facility] US ORDERABLES Edited Resul t - Final * Preeclampsia Panel (01/19/2025 9:10 AM EDT) Alkaline Phosphatase 94 39 - 117 U/L 01/19/2025 10:11 AM EDT [facility] ALT (SGPT) 8 1 - 33 U/L 01/19/2025 10:11 AM EDT [facility] AST (SGOT) 11 1 - 32 U/L 01/19/2025 10:11 AM EDT [facility] Creatinine 0.58 0.57 - 1.00 mg/dL 01/19/2025 10:11 AM EDT [facility] Total Bilirubin 0.2 0.0 - 1.2 mg/dL 01/19/2025 10:11 AM EDT [facility] LDH 148 135 - 214 U/L 01/19/2025 10:11 AM EDT [facility] Uric Acid 5.2 2.4 - 5.7 mg/dL 01/19/2025 10:11 AM EDT [facility] Blood Venipuncture / Unknown 01/19/2025 9:10 AM EDT 01/19/2025 9:39 AM EDT Jeffery Cruz DO LAB BLOOD ORDERABLES Final Result [facility]
[address] [place] [address], * (ABNORMAL) CBC (No Diff) (01/19/2025 9:10 AM EDT) Only the most recent of2 resultswithin the time period is included. WBC 7.71 3.40 - 10.80 10*3/mm3 01/19/2025 10:10 AM EDT [facility] RBC 3.25(L) 3.77 - 5.28 10*6/mm3 01/19/2025 10:10 AM EDT [facility] Hemoglobin 9.8(L) 12.0 - 15.9 g/dL 01/19/2025 10:10 AM EDT [facility] Hematocrit 29.5(L) 34.0 - 46.6 % 01/19/2025 10:10 AM EDT [facility] MCV 90.8 79.0 - 97.0 fL 01/19/2025 10:10 AM EDT [facility] MCH 30.2 26.6 - 33.0 pg 01/19/2025 10:10 AM EDT [facility] MCHC 33.2 31.5 - 35.7 g/dL 01/19/2025 10:10 AM EDT [facility] RDW 13.2 12.3 - 15.4 % 01/19/2025 10:10 AM EDT [facility] RDW-SD 43.2 37.0 - 54.0 fl 01/19/2025 10:10 AM EDT [facility] MPV 10.0 6.0 - 12.0 fL 01/19/2025 10:10 AM EDT [facility] Platelets 216 140 - 450 10*3/mm3 01/19/2025 10:10 AM EDT [facility] Blood Venipuncture / Unknown 01/19/2025 9:10 AM EDT 01/19/2025 9:39 AM EDT Jeffery Cruz DO LAB BLOOD ORDERABLES Final Result [facility]
[address] [place] [address], [place] [phone] * (ABNORMAL) Protein, Urine, 24 Hour - Urine, Clean Catch (01/19/2025 7:36 AM EDT) Protein, 24H Urine 262.2(H) 0.0 - 150.0 mg/24hours 01/19/2025 8:10 AM EDT [facility] 24H Urine Volume 5,350 mL 01/19/2025 8:10 AM EDT [facility] Time (Hours) 24 hrs 01/19/2025 8:10 AM EDT [facility] 24 Hour Urine Urine specimen obtained by clean catch procedure / Unknown 01/19/2025 7:36 AM EDT 01/19/2025 7:36 AM EDT Narrative [facility] LAB[facility] - 01/19/2025 8:10 AM EDT Reference ranges are based on a 24 hour period, interperet results accordingly. us Zeb Gonzalez MD URINE ORDERABLES Final Result Performing Organization Address City/[facility]/ZIP Co de Phone Number PSYCHIATRIC LABORATORY
[address] [place] [address], * ABO RH Specimen Verification (01/18/2025 1:33 AM EDT) ABO Type O 01/18/2025 1:42 PM EDT PS[facility] BB LABORATORY RH type Positive 01/18/2025 1:42 PM EDT [facility] Blood Venipuncture / Unknown 01/18/2025 1:33 AM EDT 01/18/2025 1:45 AM EDT us Zeb Gonzalez MD BLOOD BANK TEST ORDERABLES Sintia l Result Performing Organization Address [facility] Co de Phone Number [facility]
[address] [place] [address], [place] [phone] * Treponema pallidum AB w/Reflex RPR (01/17/2025 [...] ORDERABLES Final Resu lt Performing Organization Address [facility] Co de Phone Number [facility]
[address] [place] [address], [place] [phone] * Type & Screen (01/17/2025 11:50 PM EDT) ABO Type O 01/18/2025 1:10 AM EDT [facility]AT[facility]IC BB LABORATORY RH type Positive 01/18/2025 1:10 AM EDT [facility] BB [facility] Antibody Screen Negative 01/18/2025 1:10 AM EDT [facility] T&S Expiration Date 01/20/2025 11:59:59 PM 01/18/2025 1:10 AM EDT [facility] Blood Venipuncture / Unknown 01/17/2025 11:50 PM EDT 01/18/2025 12:30 AM EDT us Zeb Gonzalez MD BLOOD BANK TEST ORDERABLES Edit ed Result - Final Performing Organization Address [facility] Co de Phone Number [facility]
[address] [place] [address], [place] [phone] * Uric Acid (01/17/2025 11:50 PM EDT) Uric Acid 4.6 2.4 - 5.7 mg/dL 01/18/2025 12:32 AM EDT [facility] Comment:Falsely depressed re sults may occur on samples drawn from patients receiving N-Acetylcysteine (NAC) or Metamizole. Blood Venipuncture / Unknown 01/17/2025 11:50 PM EDT 01/18/2025 12:02 AM EDT us Zeb Gonzalez MD LAB BLOOD ORDERABLES Final Resu lt Performing Organization Address City/[facility]/ZIP Co de Phone Number PSYCHIATRIC LABORATORY
[address] [place] [address], [place] [phone] * Lactate Dehydrogenase (01/17/2025 11:50 PM EDT) LDH 210 135 - 214 U/L 01/18/2025 12:37 AM EDT [facility] Comment:Specimen hemolyzed. Results may be affected. Blood Venipuncture / Unknown 01/17/2025 11:50 PM EDT 01/18/2025 12:02 AM EDT us Zeb Gonzalez MD LAB BLOOD ORDERABLES Final Resu lt [facility] LAB[facility]ATORY
[address] [place] [address], * (ABNORMAL) Comprehensive Metabolic Panel (01/17/2025 11:50 PM EDT) Glucose 81 65 - 99 mg/dL 01/18/2025 12:36 AM EDT [facility] BUN 4.3(L) 6.0 - 20.0 mg/dL 01/18/2025 12:36 AM EDT [facility] Creatinine 0.46(L) 0.57 - 1.00 mg/dL 01/18/2025 12:36 AM EDT [facility] Sodium 137 136 - 145 mmol/L 01/18/2025 12:36 AM EDT [facility] Potassium 4.0 3.5 - 5.2 mmol/L 01/18/2025 12:36 AM EDT [facility] Comment:Specimen hemolyzed. Result may be falsely elevated. Chloride 105 98 - 107 mmol/L 01/18/2025 12:36 AM EDT [facility] CO2 17.5(L) 22.0 - 29.0 mmol/L 01/18/2025 12:36 AM EDT [facility] Calcium 8.3(L) 8.6 - 10.5 mg/dL 01/18/2025 12:36 AM EDT [facility] Total Protein 6.5 6.0 - 8.5 g/dL 01/18/2025 12:36 AM EDT [facility] Albumin 3.6 3.5 - 5.2 g/dL 01/18/2025 12:36 AM EDT [facility] ALT (SGPT) 10 1 - 33 U/L 01/18/2025 12:36 AM EDT [facility] AST (SGOT) 19 1 - 32 U/L 01/18/2025 12:36 AM EDT [facility] Alkaline Phosphatase 100 39 - 117 U/L 01/18/2025 12:36 AM EDT [facility] Total Bilirubin 0.3 0.0 - 1.2 mg/dL 01/18/2025 12:36 AM EDT [facility] Globulin 2.9 gm/dL 01/18/2025 12:36 AM EDT [facility] Comment:Calculated Result A/G Ratio 1.2 g/dL 01/18/2025 12:36 AM EDT [facility] BUN/Creatinine Ratio 9.3 7.0 - 25.0 01/18/2025 12:36 AM EDT [facility] Anion Gap 14.5 5.0 - 15.0 mmol/L 01/18/2025 12:36 AM T [facility] eGFR 138.1 >60.0 mL/min/1.7 3 01/18/2025 12:36 AM EDT [facility] Blood Venipuncture / Unknown 01/17/2025 11:50 PM EDT 01/18/2025 12:02 AM EDT [facility] - 01/18/2025 12:36 AM EDT GFR [...] MD LAB BLOOD ORDERABLES Final Resu lt [facility] LAB[facility]ATORY
[address] [place] [address], * Telemetry Scan (01/17/2025) [facility] Onbase ECG ORDERABLES Final Result * LABS SCANNED (01/17/2025) [facility] Onbase LAB BLOOD ORDERABLES Final Re sult from Last 3 Months [facility] [place] [id number] [facility] * CPR (Attempt to Resuscitate) (Latest Code Status on File) Date Activated Date Inactivated Comments 01/17/2025 11:22 PM 01/20/2025 2:14 PM Question Answer Comments Code Status (Patient has no pulse and is not breathing): CPR (Attempt to Resuscitate) Medical Interventions (Patie nt has pulse or is breathing): Full Support Level Of Support Discussed With: Patient Care Teams Casting Operator Relationship Specialty Start Date End Date Destiny Seymour PA [address] [place] [address] [place] [address] PCP - General Physician Special Duty Nurse 09/14/22
--- OUTSIDE RECORDS SUMMARY | 2025-02-02 21:20 | XMS_ITS | Encounter Summary ---
Author Organization [facility] Address [address] [place] [address] Care Team Providers Care Energy Crop Farmer Name Role Phone Destiny Seymour Primary Care Provider [phone] Encounter Details Date Type Department Care Team [...] on filedocumented in this encounter Care Teams Energy Crop Farmer Relationship Specialty Start Date End Date Destiny Seymour PA [address] [place] [address] [address] PCP - General Physician Semiconductor Wafer Inspector 09/14/22 documented as of this encounter
--- OUTSIDE RECORDS SUMMARY | 2025-02-02 21:20 | XMS_ITS | Clinical Summary ---
Author Organization Healthcare Address [address] [place] [address] Care Team Providers Care Agitator Operator Name Role Phone Leah Jasso APRN Primary Care Provider [phone] Family History Medical History Relation Name Comments [...] 19+ 3-dose series) 2020 [facility]-Pap Smear 2022 ALV-IALKY-19 Vaccine (1 - 20 24-25 season) 2024 [...] to complete this [place] [id number] [place] Care Teams Agitator Operator Relationship Specialty Start Date End Date Leah Jasso APRN [address] [facility] [address] [place] [address] PCP - General 11/13/20
--- OUTSIDE RECORDS SUMMARY | 2025-02-02 21:20 | XMS_ITS | Encounter Summary ---
Author Organization [facility] Address [address] [place] [address] Care Team Providers Care Rags Laborer Name Role Phone Destiny Seymour Primary Care Provider [phone] Encounter Details Date Type Department Care Team (Latest Contact Info) Description 01/17/2025 Travel 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 Tobacco Use Types Packs/Day Years Used Date Smoking Tobacco: Never Passive Smoke Exposure: Past Smokeless Tobacco: Never Alcohol Use Standard Drinks/Week Comments Not Currently 2 (1 standard drink = 0.6 oz pur e alcohol) socially [facility] Utilities Answer Date Recorded In the past 12 months has [employer], gas, oil, or water company threatened [...] and heating? Not hard at all 01/17/2025 [facility] [place] of Occupat ional Health - Occupational Stress [...] GED or equivalent No 01/17/2025 Preferred Language Sri Lankan 01/17/2025 PHQ-2 Answer Date Recorded Patient Health [...] 11:07 PM HARLANT Atiya Gordon RN * [place] Suicide Severity Rating Scale (Screener/Recent Self-Report) Question Answer Date of Assessment Author 6. Suicidal Behavior (Lifetime) No 01/17/2025 11:07 PM Alexandrea Maurer RN * Question Answer Date of Assessment Author Little interest or pleasure in doing things Nearly every day 01/17/2025 11:34 PM Alexandrae Maurer RN Feeling down, depressed, or hopeless Not at all 01/17/2025 11:34 PM EDT Jessica Hicks RN documented as of this encounter Plan of Treatment Not on file documented as of this encounter Visit Diagnoses Not on filedocumented in this encounter Care Teams Rags Laborer Relationship Specialty Start Date End Date Destiny Seymour PA [address] [facility] [address] [place] [address] PCP - General Physician Referral Nurse 09/14/22 documented as of this encounter
[2025-02-02 21:21] VITALS: BP 167/112; PULSE 96; RESP 16; TEMP 36.7; O2SAT 99; BMI 32.8
--- OUTSIDE RECORDS SUMMARY | 2025-02-02 21:21 | XMS_ITS | Patient Health Record ---
Author Organization [facility] Address [address] [place] [id number] Care Team Providers Care Feltmaker Name Role Phone Destiny Seymour Unavailable [phone] Allergies Allergen (clinical drug ingredient) Drug/Non Drug [...] Name Dawn Referring Provider Speciality Physician Research And Development Specialist Referred Provider Rheumatology, . Referred Provider Specialty Rheumatology General Notes Destiny Seymour 2023 11:16:04 AM > PT needs an appt with Pepper Bonilla Brynn 02/12/2024 11:44:56 AM > sent referral to Dr. Jacobs via [facility] website Referral Priority Routine Diagnosis 1 Rheumatoid arthritis with positive rheumatoid factor, involving unspecified site (M05.9) Referral Organization [facility] Referring Provider First Name Destiny Referring Provider Last Name Dawn Referring Provider Speciality Physician Research And Development Specialist Referred Provider Rheumatology, . Referred Provider [...] W/U Status Risk Notes Problem Supraventricular tachycardia (1723427) SVT (supraventricular tachycardia) (I47.1) Active confirmed Problem Paresthesia (17776984) Paresthesia (R20.2) Active confirmed Problem Mixed anxiety and depressive disorder (125613069) Depression with anxiety (F41.8) Active confirmed Problem Thyroid nodule (641468471) Thyroid nodule (E04.1) Active confirmed Problem Panic disorder (186154198) Panic attacks (F41.0) Active confirmed Problem Refractory migraine with aura (429432029) Intractable migraine with aura without status migrainosus (G43.119) Active confirmed Problem Cardiac arrhythmia (524083496) Cardiac arrhythmia, unspecified cardiac arrhythmia type (I49.9) Active confirmed Problem Refractory migraine (925753523) Intractable migraine without status migrainosus, unspecified migraine type (G43.919) Active confirmed Problem Thyromegaly (0480139) Thyromegaly (E01.0) Active confirmed Problem Migraine (40608244) Migraine syn drome (G43.909) Active confirmed Problem Gastroesophageal reflux disease (117403084) Gastroesophageal reflux disease, unspecified whether esophagitis present (K21.9) Active confirmed Problem Rheumatoid arthritis (27843744) Rheumatoid arthritis, involving unspecified site, unspecified whether rheumatoid factor present (M06.9) Active confirmed Problem Rheumatoid arthritis (30649195) Rheumatoid arthritis with positive rheumatoid factor, involving unspecified site (M05.9) Active confirmed Problem Tobacco user (594189204) Vaping nicotine dependence, non-tobacco product (F17.200) Active confirmed Problem Drug-induced insomnia (19116136089366) 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) Active confirmed Problem Compression of brain (38611450) 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) Active confirmed Vital Signs Heart Rate 85 /min 04/24/2024 Blood pressure diastolic 100 mm Hg 04/24/2024 Height 66 in 04/24/2024 Blood pressure systolic 134 mm Hg 04/24/2024 Weight 187.0 lbs 04/24/2024 BMI 30.18 kg/m2 04/24/2024 Encounters Encounter Location Date Provider Diagnosis [facility] [address] [place] [id number] 02/08/2024 Destiny Seymour Gastroesophageal ref lux disease, unspecified whether esophagitis present K21.9 and Rheumatoid arthritis, involving unspecified site, unspecified whether rheumatoid factor present M06.9 [facility] [address] [facility] [address] [place] [id number] 04/24/2024 Destiny Seymour Strep pharyngitis J0 2.0 and Rheumatoid arthritis with positive rheumatoid factor, involving unspecified site M05.9 [facility] [address] [facility] [address] [place] [id number] 08/01/2024 Destiny Seymour Assessments Encounter Date Diagnosis [...] Insured Coverage Start Date Coverage End Date [facility] [employer] [address] [place] [address] [id number] 002 FILI PHILLIP Self - patient is [...]
[2025-02-02 21:35] VITALS: BP 152/101; PULSE 87; RESP 16; TEMP 36.8; O2SAT 98
[2025-02-02 21:43] LABS: Microscopic, Urine URINE MICROSCOPIC (MICROSCOPIC)
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
[2025-02-02 21:45] LABS: Bilirubin,Urine Negative (Negative); Color,Urine YELLOW (Yellow); Glucose,Urine (UA) Negative (Negative); Ketones,Urine Negative (Negative); Leukocyte Esterase,Urine TRACE (Negative); PH,Urine 6.5 (5.0-8.5); Protein,Urine Negative (Negative); Specific Gravity, Urine 1.015 (1.005-1.030); Urobilinogen,Urine 0.2 EU/dl (0.2)
--- NOTE | 2025-02-02 21:52 | PC.NURSE ---
Paged international accountant OB for consult.
[2025-02-02] MEDS: ACETAMINOPHEN 500MG TAB 1000 MG PO (22:02)
--- NOTE | 2025-02-02 22:05 | PC.NURSE ---
Per Provider Cardiology appt made for 02/03/2025 at 0900. PT stated that time would work and appt. reminder given.
[2025-02-02] MEDS: METOPROLOL SUCCINATE XL 25MG TABLET 25 MG PO (22:13)
--- NOTE | 2025-02-02 22:14 | PC.NURSE ---
Provider Faye on the phone w/ Dr. Camacho for consult
--- NOTE | 2025-02-02 22:20 | PC.NURSE ---
Orders obtained from Dr. Amanda for observation admission. Orders read back and verified.
[2025-02-02 22:24] LABS: Bacteria,Urine Trace /lpf
[2025-02-02 22:25] LABS: WBC,Urine Occasional #/hpf (0-3)
[2025-02-02 22:30] LABS: Hematocrit 33.5 % (37.0-47.0); Hemoglobin 11.5 g/dL (12.2-16.2); Immature Granulocytes % 0.6 %; Mean Corpuscular HGB Conc 34.3 g/dL (31.8-35.4); Mean Corpuscular Hemoglobin 30.7 pg (27.0-31.2); Mean Corpuscular Volume 89.3 fl (81-99); Nucleated Red Blood Cells % 0 %; Platelet Count 358 K/mm3 (142-424); Red Blood Count 3.75 M/mm3 (4.20-5.40); Red Cell Distribution Width-SD 39.6 fL; White Blood Count 7.1 K/mm3 (4.8-10.8)
[2025-02-02 22:43] VITALS: BP 156/100; PULSE 77; RESP 16; O2SAT 99
[2025-02-02 22:48] LABS: Alanine Aminotransferase 29 U/L (12-78); Albumin Level 4.2 g/dl (3.5-5.0); Albumin/Globulin Ratio 1.4 (1.1-1.8); Alkaline Phosphatase 107 U/L (38-126); Anion Gap 13.9 mEq/L (5-15); Aspartate Amino Transferase 26 U/L (14-36); Bilirubin,Total 0.2 mg/dl (0.2-1.3); Blood Urea Nitrogen 10 mg/dl (7-17); Calcium 10.3 mg/dl (8.4-10.2); Carbon Dioxide 24 mmol/L (22.0-30.0); Chloride 105 mmol/L (98-107); Creatinine Clearance Estimated 219 mL/min (50-200); Creatinine,Serum 0.60 mg/dl (0.52-1.04); Estimated Glomerular Filt Rate 124 ml/min (>60); GFR (African American) 150 ML/MIN (>60); Globulin 3.0 g/dL (1.3-3.2); Glucose 108 mg/dl (74-100); Potassium 3.9 mmoL/L (3.5-5.1); Sodium 139 mmol/L (136-145); Total Protein,Serum 7.2 g/dl (6.3-8.2)
--- NOTE | 2025-02-02 23:26 | PC.NURSE ---
Report given to GREGG Pena
[2025-02-02 23:33] VITALS: BP 151/100; PULSE 89; RESP 16; TEMP 36.9; O2SAT 97
[2025-02-02 23:45] VITALS: BP 148/91; PULSE 85; RESP 17; TEMP 36.7; O2SAT 98
[2025-02-03] VITALS (9 sets, daily range): BP systolic 119–152; BP diastolic 77–89; PULSE 68–96; RESP 16–18; TEMP 36.7; O2SAT 98
[2025-02-03] MEDS: ACETAMINOPHEN 500MG TAB 1000 MG PO (06:28)
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
== END 2025-02-03 14:34 | disposition home or self-care (01) ==
LOC: ER 23:07 → OB 23:09
PROVIDERS: Nurse Practitioner; Admitting Provider Nurse Practitioner Obstetrics & Gynecology; Emergency Provider Student in an Organized Health Care Education/Training Program; PCP Physician Assistant; Visit Provider Nurse Practitioner Obstetrics & Gynecology
DX: O16.3 Unspecified maternal hypertension, third trimester (principal); O11.3 Pre-existing hypertension with pre-eclampsia, third trimester; O10.013 Pre-existing essential hypertension complicating pregnancy, third trimester; O82 Encounter for cesarean delivery without indication; O99.413 Diseases of the circulatory system complicating pregnancy, third trimester; O99.353 Diseases of the nervous system complicating pregnancy, third trimester; F17.290 Nicotine dependence, other tobacco product, uncomplicated; O99.333 Smoking (tobacco) complicating pregnancy, third trimester; I47.10 Supraventricular tachycardia, unspecified; G43.909 Migraine, unspecified, not intractable, without status migrainosus; Z37.9 Outcome of delivery, unspecified; Z3A.34 34 weeks gestation of pregnancy; Z88.1 Allergy status to other antibiotic agents; Z88.8 Allergy status to other drugs, medicaments and biological substances; Z98.890 Other specified postprocedural states; Z79.899 Other long term (current) drug therapy
CPT/HCPCS: 80053; 81001; 85025; 99285; G0378

== ENCOUNTER 2025-02-05 07:59 | Outpatient (CLI) | payer BC, SELFPAY ==
--- OUTSIDE RECORDS SUMMARY | 2024-02-08 06:45 | XMS_ITS ---
Author Organization [facility] Address [address] [place] [phone] Care Team Providers Care Electrical Checkout Mechanic Name Role Phone Destiny Seymour Unavailable [phone] Allergies Allergen (clinical drug ingredient) Drug/Non Drug Allergy documented on EMR Reaction Allergy Type Onset Date Status erythromycin Erythromycin Unknown Drug Allergy A ctive Reason For Referral Diagnosis 1 Rheumatoid arthritis , involving unspecified site, unspecified whether rheumatoid factor present (M06.9) Referral Organization [facility] Referring Provider First Name Destiny Referring Provider Last Name Dawn Referring Provider Speciality Physician Metrology Engineer Referred Provider Rheumatology, . Referred Provider Specialty Rheumatology General Notes Destiny Seymour 2023 11:16:04 AM > PT needs an appt with Pepper Bonilla Brynn 02/12/2024 11:44:56 AM > sent referral to Dr. Jacobs via [facility] website Referral Priority Routine REASON FOR [...] needed Orally Once a day, prn Active Ewsyojtusp-FJGK-Wuoxhwqd 50-325-40 MG 1 tablet as needed Orally [...] Status Risk Notes Problem Gastroesophageal reflux disease (352476339) Gastroesophageal reflux disease, unspecified whether esophagitis present (K21.9) Active confirmed Problem Rheumatoid arthritis (12306501) Rheumatoid arthritis, involving unspecified site, unspecified whether rheumatoid factor present (M06.9) Active confirmed Vital Signs Blood pressure systolic 140 mm Hg 02/08/20 24 Blood pressure diastolic 90 mm Hg 024 Heart Rate 69 /min 02/08/2024 Height 66 in 02/08/2024 Weight 191.2 lbs 02/08/2024 BMI 30.86 kg/m2 02/08/2024 Encounters Encounter Location Date Provider Diagnosis [facility] [address] [facility] [address] [place], [place] [phone] 02/08/2024 Destiny Dawn Gastroesophageal ref lux disease, [...] Notes * TANK PHILLIPOB:2000 (24 yo F)Acc No.[id number]:02/08/2024 Progress Notes Patient: FILI MONAHAN Provider: ETHEL Valentin :2000 A ge:23 Y S ex:Female Date:02/08/2024 Phone: Address:[address] [place] [address] , [place], [id number] Subjective: * Chief Complaints: * 1 . follow up ER, gerd. * HPI: G astroenterology: The pt is here for a follow up on an [facility] ER visit due to shortness of [...] the morning Orally once daily , Not-Taking Jwnonhdthg-RLIN-Ixvvlywy 50-325-40 MG Tablet 1 tablet as needed [...] * Images: Billing Information: * Visit Code: 35074 Office Visit, Est Pt., Level 4. * Procedure Codes: * Electronic signature of ETHEL Edwards on 02/05/2025 at 08:03 AM EDT Sign off status: Pending * Provider: ETHEL Valentin Date: 0 02/08/2024 Generated for Printi ng/Fajaseg/eTransmitting on: 02/05/2025 08:03 AM EDT History and Physical Notes * [...]
--- OUTSIDE RECORDS SUMMARY | 2024-04-24 07:30 | XMS_ITS ---
Author Organization [facility] Address [address] [facility] [address] [place] [phone] Care Team Providers Care Assistant Professor Name Role Phone Destiny Seymour Unavailable [phone] Allergies Allergen (clinical drug ingredient) Drug/Non Drug [...] Last Name Dawn Referring Provider Speciality Physician Central Supply Manager Referred Provider Rheumatology, . Referred Provider [...] 04/24/2024 Encounters Encounter Location Date Provider Diagnosis [facility] [address] [place], [place] [phone] 04/24/2024 Destiny Seymour Strep pharyngitis J0 2.0 [...] Notes * TANK ROSENOB:2000 (24 yo F)Acc No.[id number]:04/24/2024 Progress Notes Patient: FILI MONAHAN Provider: ETHEL Valentin :2000 A ge:23 Y S ex:Female Date:04/24/2024 Phone: Address:[address] [place] [address] Brad Ayon enmanuel, [id number] Subjective: * Chief Complaints: * 1 . [...] the morning Orally once daily , Discontinued Hsckkdbgri-VJOY-Djdbvxgo 50-325-40 MG Tablet 1 tablet as needed [...] * Images: Billing Information: * Visit Code: 58714 Office Visit, Est Pt., Level 3. * Procedure Codes: 08269 STREP A ASSAY W/OPTIC. Modifiers: QW * Electronic signature of ETHEL Edwards on 02/05/2025 at 08:03 AM EDT Sign off status: Pending * Provider: ETHEL Valentin Date: 1 Generated for Melisa gonzalez/Anel/Misbahitting on: 0 02/05/2025 08:03 AM EDT History and Physical [...]
--- OUTSIDE RECORDS SUMMARY | 2024-06-14 09:15 | XMS_ITS ---
Author Organization [place] Address 1210 [facility] [address] [place] [phone] Care Team Providers Care Package Center Supervisor Name Role Phone Dawn Destiny Unavailable [phone] Allergies Allergen (clinical drug ingredient) Drug/Non Drug [...] Encounter Location Date Provider Diagnosis Nikolas 1210 [facility] [address] [place] [phone] 06/14/2024 Destiny Seymour Plan Of Treatment No Information Progress Notes * TANK PHILLIPOB:2000 (24 yo F)Acc No.[id number]:06/14/2024 Progress Notes Patient: FILI MONAHAN Provider: ETHEL Valentin :2000 A ge:24 Y S ex:Female Date:06/14/2024 Phone: Address:[address] [place] [address] [id number] Subjective: * Chief Complaints: * 1 . [...] 08/15/2023 Generated for Melisa gonzalez/Anel/Misbahitting on: 0 02/05/2025 08:03 AM EDT History and Physical Notes * HPI (History of Present Illness) Category Sub-Category Detail Notes Category Not es HPI Patient is here today for Pt is here toda y for a check up
--- OUTSIDE RECORDS SUMMARY | 2024-12-12 13:26 | XMS_ITS | Encounter Summary ---
Author Organization [facility] Address [address] [id number] Care Team Providers Care Physical Therapist Aide Name Role Phone Destiny Seymour Primary Care Provider [phone] Reason for Referral * Diagnostic Imaging (Routine) - Closed Specialty Diagnoses / Procedures Referred By Contac t Referred To Contact Radiology Diagnoses Paroxysmal SVT (supraventricular tachycardia) Chronic hypertension complicating or reason for care during , second trimester Procedures [facility] [place] [address] [place] [address] [place] [address] Phone: tel: fax: Referral ID Status Reason Start Date Expiration Date Visits Re quested Visits Authorized [id number] Closed 11/05/2024 02/04/2026 1 1 Reason for Visit * Diagnostic Imaging (Routine) - Closed Specialty Diagnoses / Procedures Referred By Contac t Referred To Contact Radiology Diagnoses Paroxysmal SVT (supraventricular tachycardia) Chronic hypertension complicating or reason for care during , second trimester Procedures [facility] [place] John Mendoza MD [address] [facility] [address] [place] [address] Phone: tel: fax: Referral ID Status Reason Start Date Expiration Date Visits Re quested Visits Authorized [id number] Closed 11/05/2024 02/04/2026 1 1 Encounter Details Date Type Department Care Team (Late st Contact Info) Description 12/12/2024 1:26 PM EDT - 12/12/2024 11:59 PM EDT Hospital Encounter [facility] [address] [place] [address] John Mendoza MD [address] [place] [address] Paroxysmal SVT (supraventricular tachycardia); Chronic hypertension complicating [...] tablet by mouth Daily. 11/29/2024 nystatin (MYCOSTATIN) 541184 UNIT/GM powder As Needed. 08/23/2024 documented as of this encounter Plan of Treatment Not on file documented as of this encounter Procedures Procedure Name Priority Date/Time Associated Diagnosis Comments [facility] Routine 12/12/2024 2:10 PM EDT Paroxysmal SVT (supraventricular tachycardia) Chronic hypertension complicating or reason for care during , second trimester documented in this encounter Results * [facility] (12/12/2024 2:10 PM EDT) Anatomical Region Laterality Modality Ultrasound 12/12/2024 2:01 PM EDT Narrative 12/12/2024 2:18 PM EDT PAT NAME: FILI PHILLIP MED REC#: [id number] DA: 2000 PAT GEND: F PAT TYPE: O EXAM XIAO: [id number] REF PHYS PEPITO BUITRAGO Comparison Studies The [...] EFW (oz) 11 oz EFW by: Hadlock (RLA-KH-WL-FL) Extended Cav. septi pel. tr 4.8 mm Real Estate Salesperson 6.1 mm Nasal bone 10.4 mm Head [...] Normal Heart / Thorax 3-vessel view: Normal 3-yyvydf-xeijfie view: normal Stomach: Appears normal Kidneys: Appears [...] normal. Recommendation 4 weeks. Coding ======= Description: 15150-23 Follow Up Ultrasound Description: 16023-02 BPP without NST Eye Physician: Delmy Xiong RDMS Physician: John Mendoza MD, FACOG Electronically signed by: John Mendoza MD, FACOG at: 14:18 Procedure Note John Mendoza MD - 12/12/2024 PAT NAME: FILI PHILLIP [facility] REC#: [id number] DA: 2000 PAT GEND: F PAT TYPE: O EXAM XIAO: [id number] REF PHYS PEPITO BUITRAGO Comparison Studies The findings of this study are compared to the prior ultrasound studydated 11/05/24 Patient Status Outpatient Indication ======== CHTN. Rheumatoid arthritis. Maternal chiari malformation. Hx SVT withablation 2022. Vapes. Obesity BMI 33. Maternal Assessment Ugcllo269 cm Vvoqsv86 kg Weight (lb)205 lb BMI33.34 kg/m Method ======= Transabdominal ultrasound examination. View: Adequate view ========= Beltran . Number of fetuses: 1 Dating ====== Method of dating:based on stated TIFFANY GA by prior [id number] w + 4 d TIFFANY by prior assessment:02/16/2025 Ultrasound examination on:12/12/2024 GA by U/S based upon:AC, BPD, Femur, HC GA by U/S32 w + 0 d TIFFANY by U/S:02/06/2025 Previous dating:based on stated TIFFANY, selected on 11/05/2024 Agreed TIFFANY of previous datin02/16/2025 Assigned:based on stated TIFFANY, selected on 12/12/2024 Assigned GA30 w + 4 d Assigned TIFFANY:02/16/2025 d Biometry Standard BPD81.3 mm 32w 5d 92% Hadlock YUZ238.8 mm 33w 6d 98% Ermelinda HC300.1 mm 33w 2d 86% Hadlock AC256.3 mm 29w 6d 24% Hadlock Femur61.3 mm 31w 6d 71% Hadlock Typzpil75.5 mm 30w 4d 55% Ermelinda HC / AC1.17 EFW1,681 g 30w 4d 52% Hadlock EFW (lb)3 lb EFW (oz)11 oz EFW by:Hadlock (OUG-GP-RL-FL) Extended Cav. septi pel. tr4.8 mm Vp6.1 mm Nasal bone10.4 mm Head / Face / Neck Cephalic index0.78 39% Nicolaides Extremities / Bony Struc FL / BPD0.75 FL / HC0.20 FL / AC0.24 Other Structures GLA862 bpm General Evaluation Cardiac activity present. FHR [...] LVOT view:Normal Heart / Thorax 3-vessel view:Normal 6-ffiahj-tjozuty view:normal Stomach:Appears normal Kidneys:Appears normal Bladder:Appears normal [...] are normal. Recommendation 4 weeks. Coding ======= Description:17280-51 Follow Up Ultrasound Description: BPP without NST Eye Physician: Delmy Xiong RDMS Physician: John Mendoza MD, FACOG Electronically signed by: John Mendoza MD, FACOG at: 14:18 us John Mendoza MD IMG US ORDERABLES Final Result documented in this encounter Visit Diagnoses Diagnosis Paroxysmal SVT (supraventricular tachycardia) Chronic hypertension complicating or reason for care during , second trimester documented in this encounter Care Teams Physical Therapist Aide Relationship Specialty Start Date End Date Destiny Seymour PA [address] [facility] [address] [place] [id number] PCP - General Physician Probation Officer 09/14/22 documented as of this encounter
--- OUTSIDE RECORDS SUMMARY | 2024-12-12 13:45 | XMS_ITS | Encounter Summary ---
Author Organization [facility] Address [address] [place] [phone] Care Team Providers Care Classification Analyst Name Role Phone Destiny Seymour Primary Care Provider [phone] Reason for Referral * Diagnostic Imaging (Routine) - Authorized Specialty Diagnoses / Procedures Referred By Contac t Referred To Contact Radiology Diagnoses Chronic hypertension complicating or reason for care during , second trimester Procedures [facility] David Mendoza MD [address] [facility] [address] [place] [address] Phone: tel: fax: [facility] US PER DIAG CTR [address] [place] [address] Phone: tel: Referral ID Status Reason Start Date Expiration Date V isits Requested Visits Authorized [id number] Authorized 12/13/2024 03/14/2026 1 1 Reason for Visit * Reason Comments CHTN; maternal SVT; RA; maternal chiari malf. Encounter Details Date Type Department Care Team (Late st Contact Info) Description 12/12/2024 1:45 PM EDT Office Visit [facility] MATERNAL MEDICINE [address] [facility] [address] [place] [address] David Mendoza MD [address] [facility] [address] [place] [phone] Chronic hypertension complicating or reason for care [...] mouth Daily., Disp: , Rfl: nystatin (MYCOSTATIN) 620734 UNIT/GM powder, As Needed., Disp: , Rfl: [...] CVS. David Mendoza MD, FACOG Maternal Medicine, [facility] documented in this encounter Plan of Treatment Scheduled Orders Name Type Priority Associated Diagnoses Orde r Schedule [facility] Imaging Routine Chronic hypertension complicating or reason for care during , second trimester Expected: 12/18/2024 (Approximate), Expires: 12/13/2025 documented as of this encounter Visit Diagnoses Diagnosis Chronic hypertension complicating or reason for care during , second trimester- Primary documented in this encounter Care Teams Classification Analyst Relationship Specialty Start Date End Date Destiny Seymour PA [address] [place] [address] [facility] [address] [place] [address] PCP - General Physician Electronic Resources Librarian 09/14/22 documented as of this encounter
--- OUTSIDE RECORDS SUMMARY | 2025-01-17 22:36 | XMS_ITS | Encounter Summary ---
Author Organization [facility] Address [address] [place] [id number] Care Team Providers Care Seafood Manager Name Role Phone Destiny Seymour Primary Care Provider [phone] Reason for Visit * Reason Comments Elevated [...] - 01/20/2025 12:12 PM EDT Hospital Encounter [facility] [address] [place] [address] Zeb Gonzalez MD [address] [facility] [address] [place] [address] Discharge Disposition: Home or Self Care 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 Tobacco Use Types Packs/Day Years Used Date Smoking Tobacco: Never Passive Smoke Exposure: Past Smokeless Tobacco: Never Alcohol Use Standard Drinks/Week Comments Not Currently 2 (1 standard drink = 0.6 oz pur e alcohol) socially C Utilities Answer Date Recorded In the past 12 months has [employer], gas, oil, or water company threatened to [...] and heating? Not hard at all 01/17/2025 [facility] - Occupational Stress Questionnaire Answer Date Recorded [...] GED or equivalent No 01/17/2025 Preferred Language Citizen Of [place] 01/17/2025 PHQ-2 Answer Date Recorded Patient Health [...] 11:07 PM EDT Atiya Gordon RN * [place] Suicide Severity Rating Scale (Screener/Recent Self-Report) Question [...] tablet Commonly known as: ADALAT CC nystatin 250588 UNIT/GM powder Commonly known as: MYCOSTATIN Disposition:Home or Self Care Follow up: She will have an-other NST later this week and is scheduled for an induction on 01/28 Neymar Winters MD documented in this encounter Discharge Instructions * Attachments The following attachments cannot be sent through Care Everywhere. * High Blood Pressure During (Citizen Of [place]) documented in this encounter Medications at Time [...] 01/19/2025 7:25 AM EDT Fili Mercado Kenji [id number] 2000 Referring physician: Oliverio Amanda MD Chief [...] - 01/18/2025 7:18 AM EDT Fili Rosen [id number] 2000 Referring physician: Oliverio Amanda MD Chief [...] 01/17/2025 11:00 PM EDT Fili Rosen 2000 Referring physician: Oliverio Amanda MD CC: chron HTN with superimposed preeclampsia HPI: Patient is 24 y.o. female currently at 35w5d presented to [facility] for c/o headache andelevated BP at home. Pt had several severe range pressures there and received a 20mg and 40mg dose of IV labetalol prior to transfer. Pt was started on magnesium (4g/2g) and transferred here for care. PNC comp by chron HTN on labetalol 200mg tid and procardia 30XL/d and asthma. SCANLON was initially 7-8 and is now 08/12. Labs at [place] were all normal. PMH: Current meds: albuterol [...] not taking: Reported on 12/12/2024) nystatin (MYCOSTATIN) 831638 UNIT/GM powder As Needed. ALLERGIES Erythromycin SOCIAL [...] which greater than 50% was spent in vdoo-uc-bpvh consultation and coordination of care. Akanksha Moore [...] Procedure Name Priority Date/Time Associated Diagnosis Comments [facility]IC C[facility] STAT 01/20/2025 10:43 [...] 01/17/2025 documented in this encounter Results * [facility] Center (01/20/2025 10:43 AM EDT) Anatomical Region Laterality Modality Ultrasound 01/20/2025 10:4 2 AM EDT Narrative 01/20/2025 11:40 AM EDT PAT NAME: FILI ROSEN MED REC#: [id number] DA: [id number] PAT GEND: F PAT TYPE: I EXAM MYRON: [id number] REF PHYS PEPITO BUITRAGO Comparison Studies The [...] EFW (oz) 1 oz EFW by: Hadlock ([id number]) Extended Cav. septi pel. tr 5.1 mm Wafer Polisher 5.1 mm Head / Face / Neck [...] Normal Heart / Thorax 3-vessel view: Normal 9-ldieva-ctwyqbu view: normal Stomach: Appears normal Kidneys: Appears [...] Recommend delivery at 37wks. Coding ====== Description: 30044-10 Follow Up Ultrasound Description: 23160-43 BPP without NST Description: 55206-47 Doppler Umbilical Artery Wet Process Technician: Delmy Xiong RDMS Physician: Akanksha Moore MD Electronically signed by: Akanksha Moore MD at: 11:27 Procedure Note Akanksha Moore MD - 01/21/2025 PAT NAME: FILI ROSEN MED REC#: [id number] DA: [id number] PAT GEND: F PAT TYPE: I EXAM MYRON: [id number] REF PHYS PEPITO BUITRAGO Comparison Studies The findings of this study are compared to the prior ultrasound studydated 12/12/24 Patient Status Inpatient Indication ======== CHTN. Rheumatoid arthritis. Maternal chiari malformation. Hx SVT withablation 2022. Vapes. Obesity BMI 34. Maternal Assessment Wfvwzz148 cm Vhrdeu03 kg Weight (lb)211 lb BMI34.32 kg/m Method ======= Transabdominal ultrasound examination. View: Adequate view ========= Beltran . Number of fetuses: 1 Dating ====== Method of dating:based on stated TIFFANY GA by prior uprlqlifhc17 w + 1 d TIFFANY by prior assessment:02/16/2025 Ultrasound examination on:01/20/2025 GA by U/S based upon:AC, BPD, Femur, HC GA by U/S36 w + 1 d TIFFANY by U/S:02/16/2025 Previous dating:based on stated TIFFANY, selected on 12/12/2024 Agreed TIFFANY of previous datin02/16/2025 Assigned:based on stated TIFFANY, selected on 01/20/2025 Assigned GA36 w + 1 d Assigned TIFFANY:02/16/2025 d Biometry Standard BPD89.1 mm 36w 0d 57% Hadlock CUX536.1 mm 38w 4d 81% Ermelinda HC330.1 mm 37w 4d 55% Hadlock AC312.4 mm 35w 1d 32% Hadlock Femur70.2 mm 36w 0d 42% Hadlock HC / AC1.06 EFW2,755 g 35w 5d 41% Hadlock EFW (lb)6 lb EFW (oz)1 oz EFW by:Hadlock ([id number]) Extended Cav. septi pel. tr5.1 mm Vp5.1 mm Head / Face / Neck Cephalic index0.79 23% Nicolaides Extremities / Bony Struc FL / BPD0.79 FL / HC0.21 FL / AC0.22 Other Structures [id number] bpm General Evaluation Cardiac activity present. FHR [...] LVOT view:Normal Heart / Thorax 3-vessel view:Normal 2-ltlami-ygzrulk view:normal Stomach:Appears normal Kidneys:Appears normal Bladder:Appears normal [...] labs. Recommend delivery at 37wks. Coding ====== Description:85245-13 Follow Up Ultrasound Description:79198-95 BPP without NST Description:45813-05 Doppler Umbilical Artery Wet Process Technician: Delmy Xiong RDMS Physician: Akanksha Moore MD Electronically signed by: Akanksha Moore MD at: 11:27 Neymar Winters MD IM US ORDERABLES Edited Resul t - Final * Preeclampsia Panel (01/19/2025 9:10 AM EDT) Pathologist [facility] Alkaline Phosphatase 94 39 - 117 U/L 01/19/2025 10:11 AM EDT [facility] ALT (SGPT) 8 1 - 33 U/L 01/19/2025 10:11 AM EDT [facility] AST (SGOT) 11 1 - 32 U/L 01/19/2025 10:11 AM EDT [facility] Creatinine 0.58 0.57 - 1.00 mg/dL 01/19/2025 10:11 AM EDT [facility] Total Bilirubin 0.2 0.0 - 1.2 mg/dL 01/19/2025 10:11 AM EDT [facility] LDH 148 135 - 214 U/L 01/19/2025 10:11 AM EDT [facility] Uric Acid 5.2 2.4 - 5.7 mg/dL 01/19/2025 10:11 AM EDT [facility] Blood Venipuncture / Unknown 01/19/2025 9:10 AM EDT 01/19/2025 9:39 AM EDT Jefefry Cruz DO LAB BLOOD ORDERABLES Final Result [facility]
[address] [place] [address], * (ABNORMAL) CBC (No Diff) (01/19/2025 9:10 AM EDT) Pathologist [facility] WBC 7.71 3.40 - 10.80 10*3/mm3 01/19/2025 10:10 AM EDT [facility] RBC 3.25(L) 3.77 - 5.28 10*6/mm3 01/19/2025 10:10 AM EDT [facility] Hemoglobin 9.8(L) 12.0 - 15.9 g/dL 01/19/2025 10:10 AM EDT [facility] Hematocrit 29.5(L) 34.0 - 46.6 % 01/19/2025 10:10 AM EDT [facility] MCV 90.8 79.0 - 97.0 fL 01/19/2025 10:10 AM EDT [facility] MCH 30.2 26.6 - 33.0 pg 01/19/2025 10:10 AM EDT [facility] MCHC 33.2 31.5 - 35.7 g/dL 01/19/2025 10:10 AM EDT [facility] RDW 13.2 12.3 - 15.4 % 01/19/2025 10:10 AM EDT [facility] RDW-SD 43.2 37.0 - 54.0 fl 01/19/2025 10:10 AM EDT [facility] MPV 10.0 6.0 - 12.0 fL 01/19/2025 10:10 AM EDT [facility] Platelets 216 140 - 450 10*3/mm3 01/19/2025 10:10 AM T [facility] Blood Venipuncture / Unknown 01/19/2025 9:10 AM EDT 01/19/2025 9:39 AM EDT Jeffery Cruz DO LAB BLOOD ORDERABLES Final Result [facility]
[address] [place] [address], * (ABNORMAL) Protein, Urine, 24 Hour - Urine, Clean Catch (01/19/2025 7:36 AM EDT) Protein, 24H Urine 262.2(H) 0.0 - 150.0 mg/24hours 01/19/2025 8:10 AM EDT [facility] 24H Urine Volume 5,350 mL 01/19/2025 8:10 AM EDT [facility] Time (Hours) 24 hrs 01/19/2025 8:10 AM EDT [facility] 24 Hour Urine Urine specimen obtained by clean catch procedure / Unknown 01/19/2025 7:36 AM EDT 01/19/2025 7:36 AM EDT Narrative [facility] - 01/19/2025 8:10 AM EDT Reference ranges are based on a 24 hour period, interperet results accordingly. us Zeb Gonzalez MD URINE ORDERABLES Final Result Performing Organization Address City/[facility]/ZIP Co de Phone Number [facility]
[address] [place] [address], * ABO RH Specimen Verification (01/18/2025 1:33 AM EDT) ABO Type O 01/18/2025 1:42 PM EDT [facility] RH type Positive 01/18/2025 1:42 PM EDT [facility] Blood Venipuncture / Unknown 01/18/2025 1:33 AM EDT 01/18/2025 1:45 AM EDT us Zeb Gonzalez MD BLOOD BANK TEST ORDERABLES Sintia l Result Performing Organization Address City/[facility]/ZIP Co de Phone Number [facility]
[address] [place] [address], [place] [phone] * (ABNORMAL) Comprehensive Metabolic Panel (01/17/2025 11:50 PM EDT) Glucose 81 65 - 99 mg/dL 01/18/2025 12:36 AM EDT [facility] BUN 4.3(L) 6.0 - 20.0 mg/dL 01/18/2025 12:36 AM EDT [facility] Creatinine 0.46(L) 0.57 - 1.00 mg/dL 01/18/2025 12:36 AM [facility] Sodium 137 136 - 145 mmol/L 01/18/2025 12:36 AM [facility] Potassium 4.0 3.5 - 5.2 mmol/L 01/18/2025 12:36 AM [facility] Comment:Specimen hemolyzed. Result may be falsely elevated. Chloride 105 98 - 107 mmol/L 01/18/2025 12:36 AM [facility] CO2 17.5(L) 22.0 - 29.0 mmol/L 01/18/2025 12:36 AM [facility] Calcium 8.3(L) 8.6 - 10.5 mg/dL 01/18/2025 12:36 AM [facility] Total Protein 6.5 6.0 - 8.5 g/dL 01/18/2025 12:36 AM [facility] Albumin 3.6 3.5 - 5.2 g/dL 01/18/2025 12:36 AM [facility] ALT (SGPT) 10 1 - 33 U/L 01/18/2025 12:36 AM [facility] AST (SGOT) 19 1 - 32 U/L 01/18/2025 12:36 AM [facility] Alkaline Phosphatase 100 39 - 117 U/L 01/18/2025 12:36 AM [facility] Total Bilirubin 0.3 0.0 - 1.2 mg/dL 01/18/2025 12:36 AM [facility] Globulin 2.9 gm/dL 01/18/2025 12:36 AM [facility] Comment:Calculated Result A/G Ratio 1.2 g/dL 01/18/2025 12:36 AM [facility] BUN/Creatinine Ratio 9.3 7.0 - 25.0 01/18/2025 12:36 AM [facility] Anion Gap 14.5 5.0 - 15.0 mmol/L 01/18/2025 12:36 AM [facility] eGFR 138.1 >60.0 mL/min/1.7 3 01/18/2025 12:36 AM EDT [facility] Blood Venipuncture / Unknown 01/17/2025 11:50 PM EDT 01/18/2025 12:02 AM EDT Narrative [facility] - 01/18/2025 12:36 AM EDT [...] ORDERABLES Final Resu lt Performing Organization Address City/[facility]/ZIP Co de Phone Number [facility]
[address] [place] [address], [place] [phone] * Uric Acid (01/17/2025 11:50 PM EDT) Uric Acid 4.6 2.4 - 5.7 mg/dL 01/18/2025 12:32 AM EDT [facility] Comment:Falsely depressed re sults may occur on samples drawn from patients receiving N-Acetylcysteine (NAC) or Metamizole. Blood Venipuncture / Unknown 01/17/2025 11:50 PM EDT 01/18/2025 12:02 AM EDT us Zeb Gonzalez MD LAB BLOOD ORDERABLES Final Resu lt [facility]
[address] [place] [address], [place] [phone] * Lactate Dehydrogenase (01/17/2025 11:50 PM EDT) Pathologist [facility] LDH 210 135 - 214 U/L 01/18/2025 12:37 AM EDT [facility] Comment:Specimen hemolyzed. Results may be affected. Blood Venipuncture / Unknown 01/17/2025 11:50 PM EDT 01/18/2025 12:02 AM EDT us Zeb Gonzalez MD LAB BLOOD ORDERABLES Final Resu lt [facility]
[address] [place] [address], * Type & Screen (01/17/2025 11:50 PM EDT) Pathologist [facility] ABO Type O 01/18/2025 1:10 AM EDT [facility] RH type Positive 01/18/2025 1:10 AM EDT [facility] Antibody Screen Negative 01/18/2025 1:10 AM EDT [facility] T&S Expiration Date 01/20/2025 11:59:59 PM 01/18/2025 1:10 AM EDT [facility] Blood Venipuncture / Unknown 01/17/2025 11:50 PM EDT 01/18/2025 12:30 AM EDT us Zeb Gonzalez MD BLOOD BANK TEST ORDERABLES Edit ed Result - Final [facility]
[address] [place] [address], * Treponema pallidum AB w/Reflex RPR (01/17/2025 11:50 PM EDT) Pathologist [facility] Treponemal AB Total Non-Reacti ve Non-React chip 01/18/2025 12:27 PM EDT [facility] Blood Venipuncture / Unknown 01/17/2025 11:50 PM EDT 01/18/2025 12:02 AM EDT Narrative [facility] - 01/18/2025 12:27 PM EDT Reactive results will reflex RPR testing. Zeb Gonzalez MD LAB BLOOD ORDERABLES Final Resu lt [facility]
[address] [place] [address], * (ABNORMAL) CBC (No Diff) (01/17/2025 11:50 PM EDT) WBC 11.12(H) 3.40 - 10.80 10*3/mm3 01/18/2025 12:04 AM EDT [facility] RBC 3.83 3.77 - 5.28 10*6/mm3 01/18/2025 12:04 AM EDT [facility] Hemoglobin 11.8(L) 12.0 - 15.9 g/dL 01/18/2025 12:04 AM EDT [facility] Hematocrit 33.6(L) 34.0 - 46.6 % 01/18/2025 12:04 AM EDT [facility] MCV 87.7 79.0 - 97.0 fL 01/18/2025 12:04 AM EDT [facility] MCH 30.8 26.6 - 33.0 pg 01/18/2025 12:04 AM EDT [facility] MCHC 35.1 31.5 - 35.7 g/dL 01/18/2025 12:04 AM EDT [facility] RDW 12.9 12.3 - 15.4 % 01/18/2025 12:04 AM EDT [facility] RDW-SD 41.0 37.0 - 54.0 fl 01/18/2025 12:04 AM EDT [facility] MPV 10.0 6.0 - 12.0 fL 01/18/2025 12:04 AM EDT [facility] Platelets 274 140 - 450 10*3/mm3 01/18/2025 12:04 AM EDT [facility] Blood Venipuncture / Unknown 01/17/2025 11:50 PM EDT 01/18/2025 12:01 AM EDT Zeb Gonzalez MD LAB BLOOD ORDERABLES Final Resu lt [facility]
[address] [place] [address], * LABS SCANNED (01/17/2025) [facility] LAB BLOOD ORDERABLES Final Re sult * Telemetry Scan (01/17/2025) [facility] Onbase ECG ORDERABLES Final Result documented in [...] Given 01/19/2025 8:15 AM EDT 81 mg tqhkksftdt-khkaobovtxvnf-vffgnskb (FIORICET, ESGIC) 50-325-40 MG per tablet 2 [...] NPO. documented in this encounter Care Teams Seafood Manager Relationship Specialty Start Date End Date Destiny Seymour PA [address] [place] [address] [place] [address] [facility] [place] [address] PCP - General Physician Marine Pipe Welder 09/14/22 documented as of this encounter
--- NOTE | 2025-02-05 08:00 | CA_ITS ---
FINAL REPORT TECHNIQUE: Grayscale, color Doppler and duplex Doppler ultrasound of the kidneys, aorta and renal arteries was performed. Multiple velocities were measured. CLINICAL HISTORY: Post / 1 week ago HTN treated since age 15. FINDINGS: Aorta velocity: 126 cm/sec Right kidney: 12.0 cm. Normal in size without evidence of hydronephrosis or mass. Right intrarenal RI: 0.58-0.65 Right renal artery velocity: 161 cm/sec. Right RAR (Renal artery-Aortic Ratio): 1.27 Left Kidney: 11.8 cm. Normal in size with no evidence of hydronephrosis or mass. Left intrarenal RI: 0.52-0.63 Left renal artery velocity: 129 cm/sec. Left RAR (Renal Artery-Aortic Ratio): 1.02 IMPRESSION: No evidence of significant renal artery stenosis. CT angiogram or postcontrast MR angiogram would be more sensitive for evaluation of possible renal artery stenosis. Reviewed, Interpreted and Dictated by Matthew Edmonds MD Transcribed by Leah Camacho Authenticated and [facility]
--- OUTSIDE RECORDS SUMMARY | 2025-02-05 08:03 | XMS_ITS | Encounter Summary ---
Author Organization [facility] Address [address] [place] [address] Care Team Providers Care Professional Sports Scout Name Role Phone Destiny Seymour Primary Care Provider [phone] Encounter Details Date Type Department Care Team (Latest Contact Info) Description 01/17/2025 Travel 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 Tobacco Use Types Packs/Day Years Used Date Smoking Tobacco: Never Passive Smoke Exposure: Past Smokeless Tobacco: Never Alcohol Use Standard Drinks/Week Comments Not Currently 2 (1 standard drink = 0.6 oz pur e alcohol) socially [facility] Utilities Answer Date Recorded In the past 12 months has [employer] electric, gas, oil, or water company threatened [...] and heating? Not hard at all 01/17/2025 [facility] Occupat ional [facility] - Occupational Stress [...] GED or equivalent No 01/17/2025 Preferred Language Costa Rican 01/17/2025 PHQ-2 Answer Date Recorded Patient Health [...] 11:07 PM HARLANT Atiya Gordon RN * [place] Suicide Severity Rating Scale (Screener/Recent Self-Report) Question [...] on filedocumented in this encounter Care Teams Professional Sports Scout Relationship Specialty Start Date End Date Destiny Seymour PA [address] [place] [address] [facility] [address] [place] [address] PCP - General Physician Windows Security Engineer 09/14/22 documented as of this encounter
--- OUTSIDE RECORDS SUMMARY | 2025-02-05 08:03 | XMS_ITS | Clinical Summary ---
Author Organization [facility] Address [address] [place] [address] Care Team Providers Care Night Warehouse Selector Name Role Phone Leah Jasso APRN Primary Care Provider [phone] Family History Medical History Relation Name Comments [...] 19+ 3-dose series) 2020 UKY-Pap Smear 2022 [id number] Vaccine (1 - 20 24-25 season) 2024 [...] to complete [place] [id number] [place] Care Teams Night Warehouse Selector Relationship Specialty Start Date End Date Leah Jasso APRN [address] [facility] [address] [place] [address] PCP - General 11/13/20
--- OUTSIDE RECORDS SUMMARY | 2025-02-05 08:03 | XMS_ITS | Encounter Summary ---
Author Organization [facility] Address [address] [place] [address] Care Team Providers Care Videogame Tester Name Role Phone Destiny Seymour Primary Care Provider [phone] Encounter Details Date Type Department Care Team [...] on filedocumented in this encounter Care Teams Videogame Tester Relationship Specialty Start Date End Date Destiny Seymour PA [address] [address] PCP - General Physician Smoking Pipes Cleaner 09/14/22 documented as of this encounter
--- OUTSIDE RECORDS SUMMARY | 2025-02-05 08:03 | XMS_ITS | Clinical Summary ---
Author Organization [facility] Address [address] [place] [address] Care Team Providers Care Statistician Name Role Phone Destiny Seymour Primary Care Provider [phone] Allergies Active Allergy Reactions Criticality Noted Date [...] ued(Stop Taking at Discharge ) nystatin (MYCOSTATIN) 928101 UNIT/GM powder As Needed. 08/23/19 25 025 [...] [facility] [address] [place] [address] Zeb Gonzalez MD Discharge Disposition: Home or Self Care 01/17/2025 Travel 12/12/2024 1:45 PM EDT Office [facility] [address] [place] [address] John Mendoza MD Chronic hypertension complicating or reason for care during , second trimester (Primary Dx) 12/12/2024 1:26 PM EDT - 12/12/2024 11:59 PM EDT Hospital Encounter [facility] [address] [place] [address] John Mendoza MD Paroxysmal SVT (supraventricular tachycardia); Chronic hypertension complicating or reason for care during , second trimester Discharge Disposition: Home or Self Care 12/12/2024 Travel 11/05/2024 1:30 PM EDT - 11/05/2024 11:59 PM EDT Hospital Encounter [facility] [address] [place] [address] Pepito mSiley, HTN in , chronic; Hx of preeclampsia, prior , currently ; SVT (supraventricular tachycardia); , unspecified gestational age Discharge Disposition: Home or Self Care 11/05/2024 1:30 PM EDT Office [facility] [address] [facility] [address] [place] [address] John Mendoza MD Paroxysmal SVT [...] = 0.6 oz pur e alcohol) socially [facility] Utilities Answer Date Recorded In the past 12 months has [employer], gas, oil, or water [employer] threatened to shut off services in your [...] and heating? Not hard at all 01/17/2025 [facility] [place] of Occupat ional Health - Occupational Stress [...] GED or equivalent No 01/17/2025 Preferred Language Cuban 01/17/2025 PHQ-2 Answer Date Recorded Patient Health [...] Name Priority Date/Time Associated Diagnosis Comments [facility] STAT 01/20/2025 10:43 [...] - TELEMETRY 01/17/2025 SCANNED - LABS 01/17/2025 [facility] Routine 12/12/2024 2:10 PM EDT Paroxysmal SVT (supraventricular tachycardia) Chronic hypertension complicating or reason for care during , second trimester [facility] Routine 11/05/2024 2:49 PM EDT HTN in , chronic Hx of preeclampsia, prior , currently SVT (supraventricular tachycardia) , unspecified gestational age from Last 3 Months Results * [facility] (01/20/2025 10:43 AM EDT) Only the most recent of3 resultswithin the time period is included. Anatomical Region Laterality Modality Ultrasound 01/20/2025 10:4 2 AM EDT Narrative 01/20/2025 11:40 AM EDT PAT NAME: FILI PHILLIP MED REC#: [id number] DA: 2000 PAT GEND: F PAT TYPE: I EXAM MYRON: [id number] REF PHYS PEPITO SMILEY Comparison Studies The [...] Hadlock OFD 113.1 mm 38w 4d 81% Ermeilnda HC 330.1 mm 37w 4d 55% Hadlock AC 312.4 mm 35w 1d 32% Hadlock Femur 70.2 mm 36w 0d 42% Hadlock HC / AC 1.06 EFW 2,755 g 35w 5d 41% Hadlock EFW (lb) 6 lb EFW (oz) 1 oz EFW by: Hadlock ([id number]-AO-[id number]-FL) Extended Cav. septi pel. tr 5.1 mm Calendering Machine Operator 5.1 mm Head / Face / Neck [...] Normal Heart / Thorax 3-vessel view: Normal 1-qvyasq-yexalve view: normal Stomach: Appears normal Kidneys: Appears [...] Recommend delivery at 37wks. Coding ====== Description: 02291-59 Follow Up Ultrasound Description: 32949-71 BPP without NST Description: 29606-53 Doppler Umbilical Artery Presidential Helicopter Crew Chief: Delmy Xiong RDMS Physician: Akanksha Moore MD Electronically signed by: Akanksha Moore MD at: 11:27 Procedure Note Akanksha Moore MD - 01/21/2025 PAT NAME: FILI PHILLIP MED REC#: [id number] DA: 2000 PAT GEND: F PAT TYPE: I EXAM MYRON: [id number] REF PHYS PEPITO SMILEY Comparison Studies The findings of this study are compared to the prior ultrasound studydated 12/12/24 Patient Status Inpatient Indication ======== CHTN. Rheumatoid arthritis. Maternal chiari malformation. Hx SVT withablation 2022. Vapes. Obesity BMI 34. Maternal Assessment Exhuti176 cm Xxlunu95 kg Weight (lb)211 lb BMI34.32 kg/m Method ======= Transabdominal ultrasound examination. View: Adequate view ========= Beltran . Number of fetuses: 1 Dating ====== Method of dating:based on stated TIFFANY GA by prior annvnatsfs36 w + 1 d TIFFANY by prior [...] Standard BPD89.1 mm 36w 0d 57% Hadlock MUT381.1 mm 38w 4d 81% Ermelinda HC330.1 mm 37w 4d 55% Hadlock AC312.4 mm 35w 1d 32% Hadlock Femur70.2 mm 36w 0d 42% Hadlock HC / AC1.06 EFW2,755 g 35w 5d 41% Hadlock EFW (lb)6 lb EFW (oz)1 oz EFW by:Hadlock (NGC-MA-DZ-FL) Extended Cav. septi pel. tr5.1 mm Vp5.1 mm Head / Face / Neck Cephalic index0.79 23% Nicolaides Extremities / Bony Struc FL / BPD0.79 FL / HC0.21 FL / AC0.22 Other Structures GPU122 bpm General Evaluation Cardiac activity present. FHR [...] LVOT view:Normal Heart / Thorax 3-vessel view:Normal 9-nywkwy-dpehwiq view:normal Stomach:Appears normal Kidneys:Appears normal Bladder:Appears normal [...] labs. Recommend delivery at 37wks. Coding ====== Description:13778-20 Follow Up Ultrasound Description:96658-02 BPP without NST Description:52915-69 Doppler Umbilical Artery Presidential Helicopter Crew Chief: Delmy Xiong RDMS Physician: Akanksha Moore MD Electronically signed by: Akanksha Moore MD at: 11:27 us Neymar Winters MD [facility] US ORDERABLES Edited [...] [facility]
[address] [place] [address], * (ABNORMAL) CBC (No Diff) (01/19/2025 9:10 [...] [facility]
[address] [place] [address], [place] [phone] * (ABNORMAL) Protein, Urine, 24 Hour - [...] URINE ORDERABLES Final Result Performing Organization Address City/[facility]/ZIP Co de Phone Number [facility]
[address] [place] [address], * ABO RH Specimen Verification (01/18/2025 1:33 AM EDT) ABO Type O 01/18/2025 1:42 PM EDT [facility]OR[facility] RH type Positive 01/18/2025 1:42 PM EDT [facility] Blood Venipuncture / Unknown 01/18/2025 1:33 AM EDT 01/18/2025 1:45 AM EDT us Zeb Gonzalez MD BLOOD BANK TEST ORDERABLES Sintia l Result Performing Organization Address [facility] [[email or web address]] Co de Phone Number [facility]
[address] [place] [address], [place] [phone] * Treponema pallidum AB w/Reflex RPR (01/17/2025 11:50 PM EDT) Treponemal AB Total Non-Reacti ve Non-React chip 01/18/2025 12:27 PM EDT [facility] Blood Venipuncture / Unknown 01/17/2025 11:50 PM EDT 01/18/2025 12:02 AM EDT Narrative [facility] - 01/18/2025 12:27 PM EDT Reactive results will reflex RPR testing. us Zeb Gonzalez MD LAB BLOOD ORDERABLES Final Resu lt Performing Organization Address [facility] [[email or web address]] Co de Phone Number [facility]
[address] [place] [address], [place] [phone] * Type & Screen (01/17/2025 11:50 PM EDT) ABO Type O 01/18/2025 1:10 AM EDT [facility]ORAT[facility] RH type Positive 01/18/2025 1:10 AM EDT [facility]OR[facility] Antibody Screen Negative 01/18/2025 1:10 AM EDT [facility] T&S Expiration Date 01/20/2025 11:59:59 PM 01/18/2025 1:10 AM EDT [facility] Blood Venipuncture / Unknown 01/17/2025 11:50 PM EDT 01/18/2025 12:30 AM EDT us Zeb Gonzalez MD BLOOD BANK TEST ORDERABLES Edit ed Result - Final Performing Organization Address [facility] [[email or web address]] Co de Phone Number [facility]
[address] [place] [address], [place] [phone] * Uric Acid (01/17/2025 11:50 PM EDT) [...] ORDERABLES Final Resu lt Performing Organization Address City/[facility]/ZIP Co de Phone Number [facility]
[address] [place] [address], [place] [phone] * Lactate Dehydrogenase (01/17/2025 11:50 PM EDT) LDH 210 135 - 214 U/L 01/18/2025 12:37 AM EDT [facility] Comment:Specimen hemolyzed. Results may be affected. Blood Venipuncture / Unknown 01/17/2025 11:50 PM EDT 01/18/2025 12:02 AM EDT us Zeb Gonzalez MD LAB BLOOD ORDERABLES Final Resu lt [facility]
[address] [place] [address], * (ABNORMAL) Comprehensive Metabolic Panel (01/17/2025 11:50 [...] 11:50 PM EDT 01/18/2025 12:02 AM EDT [facility] - 01/18/2025 12:36 AM EDT [...] lt [facility]
[address] [place] [address], * Telemetry Scan (01/17/2025) [facility] On[facility] ECG ORDERABLES Final Result * LABS SCANNED (01/17/2025) [facility] On[facility] LAB BLOOD ORDERABLES Final Re sult from Last 3 Months Insurance [place] [id number] [facility] Directives * CPR (Attempt to Resuscitate) (Latest Code Status on File) Date Activated Date Inactivated Comments 01/17/2025 11:22 PM 01/20/2025 2:14 PM Question Answer Comments Code Status (Patient has no pulse and is not breathing): CPR (Attempt to Resuscitate) Medical Interventions (Patie nt has pulse or is breathing): Full Support Level Of Support Discussed With: Patient Care Teams Statistician Relationship Specialty Start Date End Date Destiny Seymour PA [address] [place] [address] [place] [address] PCP - General Physician Bottom Turning Lathe Turner 09/14/22
--- OUTSIDE RECORDS SUMMARY | 2025-02-05 08:03 | XMS_ITS | Clinical Summary ---
Author Organization [facility] [place] Address [address] [place] [address] Phone Care Team Providers Care Cook Fish Eggs Name Role Phone Unavailable Primary Care Provider Unavailabl e Allergies No known active allergies Active Problems Problem Noted Date Diagnosed Date S/P RF ablation operation for arrhythmia 023 Overview (03/02/2023): EPS, SVT Ablation 11/25/22-Dr. Demetrio Pearson @ [facility] SVT (supraventricular tachycardia) Surgical History Surgery Date Site/Laterality Comments CYST REMOVAL 08/31/2020 - 09/30/2020 Right R Hand Cyst Removal ABLATION OF DYSRHYTHMIC FOCUS 11/25/2022 EPS, SVT Ablation-Dr. Demetrio Pearson @ [facility] Medical History Medical History Date [...]
--- OUTSIDE RECORDS SUMMARY | 2025-02-05 08:04 | XMS_ITS | Patient Health Record ---
Author Organization [facility] Address [address] [place] [id number] Care Team Providers Care Vp Product Marketing Name Role Phone Destiny Seymour Unavailable [phone] Allergies Allergen (clinical drug ingredient) Drug/Non Drug [...] Last Name Dawn Referring Provider Speciality Physician Dba Developer Referred Provider Rheumatology, . Referred Provider Specialty Rheumatology General Notes Destiny Seymour 2023 11:16:04 AM > PT needs an appt with Pepper Bonilla Brynn 02/12/2024 11:44:56 AM > sent referral to Dr. Jacobs via [facility] website Referral Priority Routine Diagnosis 1 Rheumatoid arthritis with positive rheumatoid factor, involving unspecified site (M05.9) Referral Organization [facility] Referring Provider First Name Destiny Referring Provider Last Name Dawn Referring Provider Speciality Physician Dba Developer Referred Provider Rheumatology, . Referred Provider [...] W/U Status Risk Notes Problem Supraventricular tachycardia (2095775) SVT (supraventricular tachycardia) (I47.1) Active confirmed Problem Paresthesia (83500906) Paresthesia (R20.2) Active confirmed Problem Mixed anxiety and depressive disorder (390004270) Depression with anxiety (F41.8) Active confirmed Problem Thyroid nodule (533874090) Thyroid nodule (E04.1) Active confirmed Problem Panic disorder (218654060) Panic attacks (F41.0) Active confirmed Problem Refractory migraine with aura (153760878) Intractable migraine with aura without status migrainosus (G43.119) Active confirmed Problem Cardiac arrhythmia (422024675) Cardiac arrhythmia, unspecified cardiac arrhythmia type (I49.9) Active confirmed Problem Refractory migraine (172525584) Intractable migraine without status migrainosus, unspecified migraine type (G43.919) Active confirmed Problem Thyromegaly (7035533) Thyromegaly (E01.0) Active confirmed Problem Migraine (14907401) Migraine syn drome (G43.909) Active confirmed Problem Gastroesophageal reflux disease (100230606) Gastroesophageal reflux disease, unspecified whether esophagitis present (K21.9) Active confirmed Problem Rheumatoid arthritis (05833587) Rheumatoid arthritis, involving unspecified site, unspecified whether rheumatoid factor present (M06.9) Active confirmed Problem Rheumatoid arthritis (10116315) Rheumatoid arthritis with positive rheumatoid factor, involving unspecified site (M05.9) Active confirmed Problem Tobacco user (825127106) Vaping nicotine dependence, non-tobacco product (F17.200) Active confirmed Problem Drug-induced insomnia (93723734990057) 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) Active confirmed Problem Compression of brain (75763469) 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) Active confirmed Vital Signs Heart Rate 85 /min 04/24/2024 Blood pressure diastolic 100 mm Hg 04/24/2024 Height 66 in 04/24/2024 Blood pressure systolic 134 mm Hg 04/24/2024 Weight 187.0 lbs 04/24/2024 BMI 30.18 kg/m2 04/24/2024 Encounters Encounter [facility] Date [facility] [address] [place] [id number] 02/08/2024 Destiny Seymour Gastroesophageal ref lux disease, unspecified whether esophagitis present K21.9 and Rheumatoid arthritis, involving unspecified site, unspecified whether rheumatoid factor present M06.9 [facility] [address] [place] [id number] 04/24/2024 Destiny Seymour Strep pharyngitis J0 2.0 and Rheumatoid arthritis with positive rheumatoid factor, involving unspecified site M05.9 [facility] [address] [place] [id number] 08/01/2024 Destiny Seymour Assessments Encounter Date Diagnosis [...] Insured Coverage Start Date Coverage End Date [facility] [address] [place] [address] [id number] FILI PHILLIP Self - patient is [...]
== END 2025-02-05 23:59 | disposition home or self-care (01) ==
LOC: RT 08:00
PROVIDERS: Visit Provider Nurse Practitioner Obstetrics & Gynecology
DX: O10.93 Unspecified pre-existing hypertension complicating the puerperium (principal)
CPT/HCPCS: 93976

== ENCOUNTER 2025-02-07 13:36 | Outpatient (CLI) | payer BC, SELFPAY ==
--- OUTSIDE RECORDS SUMMARY | 2024-02-08 06:45 | XMS_ITS ---
Author Organization [facility] Address [address] [place] [phone] Care Team Providers Care Cryptologic Linguist Name Role Phone Destiny Seymour Unavailable [phone] Allergies Allergen (clinical drug ingredient) Drug/Non Drug Allergy documented on EMR Reaction Allergy Type Onset Date Status erythromycin Erythromycin Unknown Drug Allergy A ctive Reason For Referral Diagnosis 1 Rheumatoid arthritis , involving unspecified site, unspecified whether rheumatoid factor present (M06.9) Referral Organization [facility] Referring Provider First Name Destiny Referring Provider Last Name Dawn Referring Provider Speciality Physician Automotive Manufacturer Referred Provider Rheumatology, . Referred Provider Specialty Rheumatology General Notes Destiny Seymour 2023 11:16:04 AM > PT needs an appt with Pepper Bonilla Brynn 02/12/2024 11:44:56 AM > sent referral to Dr. Jacobs via [facility] website Referral Priority Routine REASON FOR [...] needed Orally Once a day, prn Active Fjhpvtyakj-JQHL-Ehifcpeq 50-325-40 MG 1 tablet as needed Orally [...] Status Risk Notes Problem Gastroesophageal reflux disease (115268172) Gastroesophageal reflux disease, unspecified whether esophagitis present (K21.9) Active confirmed Problem Rheumatoid arthritis (84671876) Rheumatoid arthritis, involving unspecified site, unspecified whether rheumatoid factor present (M06.9) Active confirmed Vital Signs Blood pressure systolic 140 mm Hg 02/08/20 24 Blood pressure diastolic 90 mm Hg 024 Heart Rate 69 /min 02/08/2024 Height 66 in 02/08/2024 Weight 191.2 lbs 02/08/2024 BMI 30.86 kg/m2 02/08/2024 Encounters Encounter Location Date Provider Diagnosis [facility] [place] [address] [facility] [address] [place], [place] [phone] 02/08/2024 Destiny Dawn Gastroesophageal ref lux disease, [...] Notes * TANK PHILLIPOB:2000 (24 yo F)Acc No.[id number]:02/08/2024 Progress Notes Patient: FILI MONAHAN Provider: ETHEL Valentin :2000 A ge:23 Y S ex:Female Date:02/08/2024 Phone: Address:[address] [place] [address] , [place], [id number] Subjective: * Chief Complaints: * 1 . follow up ER, gerd. * HPI: G astroenterology: The pt is here for a follow up on an [facility] ER visit due to shortness of [...] the morning Orally once daily , Not-Taking Wntkwybudb-XMLN-Qbhjxals 50-325-40 MG Tablet 1 tablet as needed [...] * Images: Billing Information: * Visit Code: 83341 Office Visit, Est Pt., Level 4. * Procedure Codes: * Electronic signature of ETHEL Edwards on 02/07/2025 at 01:41 PM EDT Sign off status: Pending * Provider: ETHEL Valentin Date: 0 02/08/2024 Generated for Leonori ng/Fajaseg/eTransmitting on: 02/07/2025 01:41 PM EDT History and Physical Notes * [...]
--- OUTSIDE RECORDS SUMMARY | 2024-04-24 07:30 | XMS_ITS ---
Author Organization Bradley Address [address] [facility] [address] [phone] Care Team Providers Care Dental Technician Apprentice Name Role Phone Destiny Seymour Unavailable [phone] Allergies Allergen (clinical drug ingredient) Drug/Non Drug [...] Last Name Dawn Referring Provider Speciality Physician Paper Products Inspector Referred Provider Rheumatology, . Referred Provider Specialty [...] 04/24/2024 Encounters Encounter Location Date Provider Diagnosis [facility] [address] [place], [place] [id number] 04/24/2024 Destiny Seymour Strep pharyngitis J0 2.0 [...] Notes * TANK ROSENOB:2000 (24 yo F)Acc No.[id number]:04/24/2024 Progress Notes Patient: FILI MONAHAN Provider: ETHEL Valentin :2000 A ge:23 Y S ex:Female Date:04/24/2024 Phone: Address:[address] [place] [address] Brad Ayon enmanuel, [id number] Subjective: * Chief Complaints: * 1 . [...] the morning Orally once daily , Discontinued Uqbmlwydyz-NPOW-Pwyxfyqm 50-325-40 MG Tablet 1 tablet as needed [...] * Images: Billing Information: * Visit Code: 46490 Office Visit, Est Pt., Level 3. * Procedure Codes: 76523 STREP A ASSAY W/OPTIC. Modifiers: QW * Electronic signature of ETHEL Edwards on 02/07/2025 at 01:40 PM EDT Sign off status: Pending * Provider: ETHEL Valentin Date: 1 Generated for Melisa gonzalez/Anel/Misbahitting on: 0 02/07/2025 01:40 PM EDT History and Physical Notes * [...]
--- OUTSIDE RECORDS SUMMARY | 2024-06-14 09:15 | XMS_ITS ---
Author Organization [facility] Address [address] [facility] [address] [place] [phone] Care Team Providers Care Recreational Counselor Name Role Phone Dawn Destiny Unavailable [phone] Allergies Allergen (clinical drug ingredient) Drug/Non Drug [...] Encounter Location Date Provider Diagnosis [facility] [address] [place] [phone] 06/14/2024 eDstiny Seymour Plan Of Treatment No Information Progress Notes * TANK PHILLIPOB:2000 (24 yo F)Acc No.[id number]:06/14/2024 Progress Notes Patient: FILI MONAHAN Provider: ETHEL Valentin :2000 A ge:24 Y S ex:Female Date:06/14/2024 Phone: Address:[address] [place] [address] [address] [place] Espinal-[id number] Subjective: * Chief Complaints: * 1 . [...] 08/15/2023 Generated for Melisa gonzalez/Anel/Misbahitting on: 0 02/07/2025 01:41 PM EDT History and Physical Notes * HPI (History of Present Illness) Category Sub-Category Detail Notes Category Not es HPI Patient is here today for Pt is here toda y for a check up
--- OUTSIDE RECORDS SUMMARY | 2024-12-12 13:26 | XMS_ITS | Encounter Summary ---
Author Organization [facility] Address [address] [id number] Care Team Providers Care Lead Programmer Name Role Phone Destiny Seymour Primary Care Provider [phone] Reason for Referral * Diagnostic Imaging (Routine) - Closed Specialty Diagnoses / Procedures Referred By Contac t Referred To Contact Radiology Diagnoses Paroxysmal SVT (supraventricular tachycardia) Chronic hypertension complicating or reason for care during , second trimester Procedures [facility] [place] [address] [place] [address] [place] [address] Phone: tel: fax: Referral ID Status Reason Start Date Expiration Date Visits Re quested Visits Authorized [id number] Closed 11/05/2024 02/04/2026 1 1 Reason for Visit * Diagnostic Imaging (Routine) - Closed Specialty Diagnoses / Procedures Referred By Contac t Referred To Contact Radiology Diagnoses Paroxysmal SVT (supraventricular tachycardia) Chronic hypertension complicating or reason for care during , second trimester Procedures [facility] [place] John Mendoza MD [address] [facility] [address] [place] [address] Phone: tel: fax: Referral ID Status Reason Start Date Expiration Date Visits Re quested Visits Authorized [id number] Closed 11/05/2024 02/04/2026 1 1 Encounter Details Date Type Department Care Team (Late st Contact Info) Description 12/12/2024 1:26 PM EDT - 12/12/2024 11:59 PM EDT Hospital Encounter [facility] [address] [place] [address] John Mendoza MD [address] [place] [address] Paroxysmal SVT (supraventricular tachycardia); Chronic hypertension complicating or reason for care during , second trimester Discharge Disposition: Home or Self Care 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 Tobacco Use Types Packs/Day Years Used Date Smoking Tobacco: Never Passive Smoke Exposure: Past Smokeless Tobacco: Never Alcohol Use Standard Drinks/Week Comments Not Currently 2 (1 standard drink = 0.6 oz pur e alcohol) socially AUDIT-C Answer Date Recorded Q1: How often do you have a drink containing alc ohol? 2-4 times a month 11/25/2022 Q2: How many drinks containi ng alcohol do you have on a typical day when you are drinking? 1 or 2 11/25/2022 Q3: How often do you have si x or more drinks on one occasion? Less than monthly 11/25/2022 Abuse Screen Answer Date Recorded Feels Unsafe at Home or Work/School no 11/25/2022 Feels Threatened by Someone no 11/01 Does Anyone Try to Keep You From Having Contact with Others or Doing Things Outside Your Home? no 11/25/2022 Physical Signs of Abuse Present no 11/25/2022 Housing Stability Answer Date Recorded Current Living Arrangements home 11/01 Potentially Unsafe Housing Conditions Not on cooper e 11/25/2022 Disabilities Answer Date Recorded Difficulty Concentrating, Remembering or Making Decisions no 11/25/2022 Difficulty Managing Errands Independently no 11/25/2022 Estimated Date of Delivery Comme nts Yes 02/16/2025 Based on Patient Reported Sex and Gender Information Value Date Recorded Sex Assigned at Not on file Legal Sex Female 4:51 PM EDT Gender Identity Not on file Sexual Orientation Not on file documented as of this encounter Medications at Time of Discharge albuterol sulfate HFA 108 (90 Base) MCG/ACT inhaler Inhale 2 puffs Every 6 (Six) Hours As Needed for Shortness of Air. 10/31/2024 ferrous sulfate 324 (65 Fe) MG tablet delayed-release EC tablet Take 1 tablet by mouth Daily With Breakfast. MAGnesium-Oxide 400 (240 Mg) MG tablet Take 1 tablet by mouth Daily. 08/24/2024 ondansetron ODT (ZOFRAN-ODT) [address] 1 tablet on the tongue Every 6 (Six) Hours As Needed. 10/11/2024 vitamin (, CLASSIC, vitamin) tablet Take by mouth Daily. bisoprolol (ZEBeta) 5 MG tablet Take 1 tablet by mouth Daily. 2.5mg daily labetalol (NORMODYNE) 200 MG tablet Take 1 tablet by mouth Every 12 (Twelve) Hours. 10/18/2024 NIFEdipine CC (ADALAT CC) 30 MG 24 hr tablet Take 1 tablet by mouth Daily. 11/29/2024 nystatin (MYCOSTATIN) 098740 UNIT/GM powder As Needed. 08/23/2024 documented as of this encounter Plan of Treatment Not on file documented as of this encounter Procedures Procedure Name Priority Date/Time Associated Diagnosis Comments [facility] Routine 12/12/2024 2:10 PM EDT Paroxysmal SVT (supraventricular tachycardia) Chronic hypertension complicating or reason for care during , second trimester documented in this encounter Results * [facility] (12/12/2024 2:10 PM EDT) Anatomical Region Laterality Modality Ultrasound 12/12/2024 2:01 PM EDT Narrative 12/12/2024 2:18 PM EDT PAT NAME: FILI PHILLIP MED REC#: [id number] DA: 2000 PAT GEND: F PAT TYPE: O EXAM XIAO: [id number] REF PHYS PEPITO BUITRAGO Comparison Studies The findings of this study are compared to the prior ultrasound study dated 11/05/24 Patient Status Outpatient Indication ======== CHTN. Rheumatoid arthritis. Maternal chiari malformation. Hx SVT with ablation 2022. Vapes. Obesity BMI 33. Maternal Assessment Height 167 cm Weight 93 kg Weight (lb) 205 lb BMI 33.34 kg/m Method ======= Transabdominal ultrasound examination. View: Adequate view ========= Beltran . Number of fetuses: 1 Dating ====== Method of dating: based on stated TIFFANY GA by prior assessment 30 w + 4 d TIFFANY by prior assessment: 02/16/2025 Ultrasound examination on: 12/12/2024 GA by U/S based upon: AC, BPD, Femur, HC GA by U/S 32 w + 0 d TIFFANY by U/S: 02/06/2025 Previous dating: based on stated TIFFANY, selected on 11/05/2024 Agreed TIFFANY of previous datin02/16/2025 Assigned: based on stated TIFFANY, selected on 12/12/2024 Assigned GA 30 w + 4 d Assigned TIFFANY: 02/16/2025 length 280 d Biometry Standard BPD 81.3 mm 32w 5d 92% Hadlock OFD 103.8 mm 33w 6d 98% Ermelinda HC 300.1 mm 33w 2d 86% Hadlock AC 256.3 mm 29w 6d 24% Hadlock Femur 61.3 mm 31w 6d 71% Hadlock Humerus 52.5 mm 30w 4d 55% Ermelinda HC / AC 1.17 EFW 1,681 g 30w 4d 52% Hadlock EFW (lb) 3 lb EFW (oz) 11 oz EFW by: Hadlock (SMV-SE-DM-FL) Extended Cav. septi pel. tr 4.8 mm Government Minister 6.1 mm Nasal bone 10.4 mm Head / Face / Neck Cephalic index 0.78 39% Nicolaides Extremities / Bony Struc FL / BPD 0.75 FL / HC 0.20 FL / AC 0.24 Other Structures FHR 139 bpm General Evaluation Cardiac activity present. FHR 139 bpm. movements present. Presentation cephalic. Placenta Placental site: anterior. Amniotic fluid Amount of AF: normal. MVP 4.3 cm. DUSTIN 15.8 cm. Q1 3.5 cm, Q2 4.2 cm, Q3 4.3 cm, Q4 3.8 cm. Anatomy Cranium: Normal Cavum septi pellucidi: Normal Cerebellum: Normal Cisterna magna: Normal Head / Neck Rt lateral ventricle: Normal Lt lateral ventricle: Normal Lips: Normal Profile: Normal Nose: Normal Face Palate: Normal Orbits: Normal Lens: Normal 4-chamber view: Appears normal RVOT view: Normal LVOT view: Normal Heart / Thorax 3-vessel view: Normal 2-ymyxvz-yhdrxko view: normal Stomach: Appears normal Kidneys: Appears normal Bladder: Appears normal Gender: female Wants to know gender: yes Doppler Arterial Umbilical A PI 0.84 26% Nasreen Umbilical A RI 0.60 32% Nasreen Umbilical A PS 50.00 cm/s 69% Ebbing Umbilical A ED 19.76 cm/s Umbilical A TAmax 36.11 cm/s 82% Ebbing Umbilical A MD 18.11 cm/s Umbilical A S / D 2.53 31% Nasreen Umbilical A HR 146 bpm Biophysical Profile 2: breathing movements 2: Gross body movements 2: tone 2: Amniotic fluid volume 8/8 Biophysical profile score Consultation / Office Visit Office note to follow Impression Today's exam reveals a SIUP in cephalic presentation with biometry consistent with dates. Limited anatomic survey appears normal. The DUSTIN and BPP are normal. Recommendation 4 weeks. Coding ======= Description: 92914-55 Follow Up Ultrasound Description: 20291-85 BPP without NST Plug Paster: Delmy Xiong RDMS Physician: John Mendoza MD, FACOG Electronically signed by: John Mendoza MD, FACOG at: 14:18 Procedure Note John Mendoza MD - 12/12/2024 PAT NAME: FILI PHILLIP [facility] REC#: [id number] DA: 2000 PAT GEND: F PAT TYPE: O EXAM XIAO: [id number] REF PHYS PEPITO BUITRAGO Comparison Studies The findings of this study are compared to the prior ultrasound studydated 11/05/24 Patient Status Outpatient Indication ======== CHTN. Rheumatoid arthritis. Maternal chiari malformation. Hx SVT withablation 2022. Vapes. Obesity BMI 33. Maternal Assessment Rtwjwq989 cm Obhlos89 kg Weight (lb)205 lb BMI33.34 kg/m Method ======= Transabdominal ultrasound examination. View: Adequate view ========= Beltran . Number of fetuses: 1 Dating ====== Method of dating:based on stated TIFFANY GA by prior [id number] w + 4 d TIFFANY by prior assessment:02/16/2025 Ultrasound examination on:12/12/2024 GA by U/S based upon:AC, BPD, Femur, HC GA by U/S32 w + 0 d TIFFANY by U/S:02/06/2025 Previous dating:based on stated TIFFANY, selected on 11/05/2024 Agreed TIFFANY of previous datin02/16/2025 Assigned:based on stated TIFFANY, selected on 12/12/2024 Assigned GA30 w + 4 d Assigned TIFFANY:02/16/2025 [id number] d Biometry Standard BPD81.3 mm 32w 5d 92% Hadlock IZC129.8 mm 33w 6d 98% Ermelinda HC300.1 mm 33w 2d 86% Hadlock AC256.3 mm 29w 6d 24% Hadlock Femur61.3 mm 31w 6d 71% Hadlock Whlqwbv90.5 mm 30w 4d 55% Ermelinda HC / AC1.17 EFW1,681 g 30w 4d 52% Hadlock EFW (lb)3 lb EFW (oz)11 oz EFW by:Hadlock (HSO-RS-EE-FL) Extended Cav. septi pel. tr4.8 mm Vp6.1 mm Nasal bone10.4 mm Head / Face / Neck Cephalic index0.78 39% Nicolaides Extremities / Bony Struc FL / BPD0.75 FL / HC0.20 FL / AC0.24 Other Structures XAD464 bpm General Evaluation Cardiac activity present. FHR 139 bpm. movements present. Presentation cephalic. Placenta Placental site: anterior. Amniotic fluid Amount of AF: normal. MVP 4.3 cm. DUSTIN 15.8 cm. Q1 3.5 cm,Q2 4.2 cm, Q3 4.3 cm, Q4 3.8 cm. Anatomy Cranium:Normal Cavum septi pellucidi:Normal Cerebellum:Normal Cisterna magna:Normal Head / Neck Rt lateral ventricle:Normal Lt lateral ventricle:Normal Lips:Normal Profile:Normal Nose:Normal Face Palate:Normal Orbits:Normal Lens:Normal 4-chamber view:Appears normal RVOT view:Normal LVOT view:Normal Heart / Thorax 3-vessel view:Normal 8-bxybsu-gngmbhf view:normal Stomach:Appears normal Kidneys:Appears normal Bladder:Appears normal Gender:female Wants to know gender:yes Doppler Arterial Umbilical A PI0.84 26% Nasreen Umbilical A RI0.60 32% Nasreen Umbilical A PS50.00 cm/s 69% Ebbing Umbilical A ED19.76 cm/s Umbilical A TAmax36.11 cm/s 82% Ebbing Umbilical A MD18.11 cm/s Umbilical A S / D2.53 31% Nasreen Umbilical A HR146 bpm Biophysical Profile 2: breathing movements 2: Gross body movements 2: tone 2: Amniotic fluid volume 02/07 Biophysical profile score Consultation / Office Visit Office note to follow Impression Today's exam reveals a SIUP in cephalic presentation with biometryconsistent with dates. Limited anatomic survey appears normal. TheAFI and BPP are normal. Recommendation 4 weeks. Coding ======= Description:32558-27 Follow Up Ultrasound Description: BPP without NST Plug Paster: Delmy Xiong RDMS Physician: John Mendoza MD, FACOG Electronically signed by: John Mendoza MD, FACOG at: 14:18 us John Mendoza MD IMG US ORDERABLES Final Result documented in this encounter Visit Diagnoses Diagnosis Paroxysmal SVT (supraventricular tachycardia) Chronic hypertension complicating or reason for care during , second trimester documented in this encounter Care Teams Lead Programmer Relationship Specialty Start Date End Date Destiny Seymour PA [address] [place] [address] [facility] [address] [place] [address] PCP - General Physician Chef Broiler Or Fry 09/14/22 documented as of this encounter
--- OUTSIDE RECORDS SUMMARY | 2024-12-12 13:45 | XMS_ITS | Encounter Summary ---
Author Organization [facility] Address [address] [place] [id number] Care Team Providers Care Lehr Attendant Name Role Phone Destiny Seymour Primary Care Provider [phone] Reason for Referral * Diagnostic Imaging (Routine) - Authorized Specialty Diagnoses / Procedures Referred By Contac t Referred To Contact Radiology Diagnoses Chronic hypertension complicating or reason for care during , second trimester Procedures [facility] David Mendoza MD [address] [facility] [address] [place] [address] Phone: tel: fax: [facility] US PER DIAG CTR [address] [place] [address] Phone: tel: Referral ID Status Reason Start Date Expiration Date V isits Requested Visits Authorized [id number] Authorized 12/13/2024 03/14/2026 1 1 Reason for Visit * Reason Comments CHTN; maternal SVT; RA; maternal chiari malf. Encounter Details Date Type Department Care Team (Late st Contact Info) Description 12/12/2024 1:45 PM EDT Office Visit [facility] MATERNAL MEDICINE [address] [facility] [address] [place] [address] David Mendoza MD [address] [facility] [address] [place] [id number] Chronic hypertension complicating or reason for care during , second trimester (Primary Dx) 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 Tobacco Use Types Packs/Day Years [...] on file documented as of this encounter Last Filed Vital Signs Vital Sign Reading Time Taken Comments Blood Pressure 144/82 12/12/2024 2:12 PM EDT Pulse - - Temperature - - Respiratory Rate - - Oxygen Saturation - - Inhaled Oxygen Concentration - - Weight 93.2 kg (205 lb 6.4 oz) 12/12/2024 1:40 P M EDT Height - - Body Mass Index 33.15 01/20/2023 2:23 PM EDT documented in this encounter Progress Notes * David Mendoza MD - 12/12/2024 2:04 PM EDTAssociated Problem(s): Chronic hypertension complicating or reason for care during , second trimester Patient presents for follow-up growth ultrasound secondary to chronic hypertension. Patient currently on Procardia daily and labetalol 100 mg 3 times daily. Blood pressure today 155/88 and on repeat was 142/88. Urine dip negative for protein today and patient asymptomatic. Repeat after ultrasound was 144/82. Patient reports that she forgot to take her labetalol dosing today. Given potential change in blood pressure profile would recommend weekly preeclampsia labs. We discussed careful return precautions regarding preeclampsia. Today's ultrasound shows normal growth with normal amniotic fluid.Follow-up here in 4 weeks. We discussed likely delivery at 37 weeks * David Mendoza MD - 12/12/2024 1:45 PM EDTAddended by: DAVID MENDOZA on: 12/13/2024 08:24 AM Modules accepted: Orders * Beth Morgan RN - 12/12/2024 1:45 PM EDT Patient denies any leaking of fluid, vaginal bleeding, or contractions. NIPT negative. Patient reports next follow-up appointment with Dr. Smiley's office is 12/17, she reports she has an NST tomorrow. * David Mendoza MD - 12/12/2024 1:45 PM EDT Maternal/ Medicine Consult Note Date: 12/12/2024 Name: Deja Phillip : 2000 Referring Provider: Demetra Smiley DO Chief Complaint CHTN; maternal SVT; RA; maternal chiari malf. Subjective History of Present Illness: Deja Phillip is a 24 y.o. 30w4d who presents today for chronic hypertension TIFFANY: Estimated Date of Delivery: 02/16/25 ROS: Otherwise Noted in HPI Current Outpatient Medications: albuterol sulfate HFA 108 (90 Base) MCG/ACT inhaler, Inhale 2 puffs Every 6 (Six) Hours As Needed for Shortness of Air., Disp: , Rfl: ferrous sulfate 324 (65 Fe) MG tablet delayed-release EC tablet, Take 1 tablet by mouth Daily With Breakfast., Disp: , Rfl: labetalol (NORMODYNE) 200 MG tablet, Take 1 tablet by mouth Every 12 (Twelve) Hours. (Patient taking differently: Take 1 tablet by mouth 3 times a day.), Disp: , Rfl: MAGnesium-Oxide 400 (240 Mg) MG tablet, Take 1 tablet by mouth Daily. (Patient taking differently: Take 1 tablet by mouth 3 times a day.), Disp: , Rfl: NIFEdipine CC (ADALAT CC) 30 MG 24 hr tablet, Take 1 tablet by mouth Daily., Disp: , Rfl: nystatin (MYCOSTATIN) 629130 UNIT/GM powder, As Needed., Disp: , Rfl: ondansetron ODT (ZOFRAN-ODT) 4 MG disintegrating tablet, Place 1 tablet on the tongue Every 6 (Six)Hours As Needed., Disp: , Rfl: vitamin (, CLASSIC, vitamin) tablet, Take by mouth Daily., Disp: , Rfl: bisoprolol (ZEBeta) 5 MG tablet, Take 1 tablet by mouth Daily. 2.5mg daily (Patient not taking: Reported on 12/12/2024), Disp: , Rfl: Objective Vital Signs BP 144/82 Wt 93.2 kg (205 lb 6.4 oz) Estimated body mass index is 33.15 kg/m?? as calculated from the following: Height as of 01/20/23: 167.6 cm (66 ). Weight as of this encounter: 93.2 kg (205 lb 6.4 oz). Ultrasound Impression: See Viewpoint Assessment and Plan Deja Phillip is a 24 y.o. 30w4d who presents today for chronic hypertension Diagnoses and all orders for this visit: 1. Chronic hypertension complicating or reason for care during , second trimester (Primary) Assessment & Plan: Patient presents for follow-up growth ultrasound secondary to chronic hypertension. Patient currently on Procardia daily and labetalol 100 mg 3 times daily. Blood pressure today 155/88 and on repeat was 142/88. Urine dip negative for protein today and patient asymptomatic. Repeat after ultrasound was 144/82. Patient reports that she forgot to take her labetalol dosing today. Given potential change in blood pressure profile would recommend weekly preeclampsia labs. We discussed careful return precautions regarding preeclampsia. Today's ultrasound shows normal growth with normal amniotic fluid.Follow-up here in 4 weeks. We discussed likely delivery at 37 weeks Follow Up 4 weeks I spent 10 minutes caring for the patient on the day of service. This included: obtaining or reviewing a separately obtained medical history, reviewing patient records, performing a medically appropriate exam and/or evaluation, counseling or educating the patient/family/caregiver, ordering medications, labs, and/or procedures and documenting such in the medical record. This does not include time spent on review and interpretation of other tests such as ultrasound or the performance of other procedures such as amniocentesis or CVS. David Mendoza MD, FACOG Maternal Medicine, [facility] documented in this encounter Plan of Treatment Scheduled Orders Name Type Priority Associated Diagnoses Orde r Schedule [facility] Imaging Routine Chronic hypertension complicating or reason for care during , second trimester Expected: 12/18/2024 (Approximate), Expires: 12/13/2025 documented as of this encounter Visit Diagnoses Diagnosis Chronic hypertension complicating or reason for care during , second trimester- Primary documented in this encounter Care Teams Lehr Attendant Relationship Specialty Start Date End Date Destiny Seymour PA [address] [place] [address] [facility] [address] [place] [address] PCP - General Physician Mercury Washer 09/14/22 documented as of this encounter
--- OUTSIDE RECORDS SUMMARY | 2025-01-17 22:36 | XMS_ITS | Encounter Summary ---
Author Organization [facility] Address [address] [place] [id number] Care Team Providers Care Absence Management Consultant Name Role Phone Destiny Seymour Primary Care Provider [phone] Reason for Visit * Reason Comments Elevated [...] - 01/20/2025 12:12 PM EDT Hospital Encounter [facility] [address] [place] [address] Zeb Gonzalez MD [address] [facility] [address] [place] [address] Discharge Disposition: Home or Self Care 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 Tobacco Use Types Packs/Day Years Used Date Smoking Tobacco: Never Passive Smoke Exposure: Past Smokeless Tobacco: Never Alcohol Use Standard Drinks/Week Comments Not Currently 2 (1 standard drink = 0.6 oz pur e alcohol) socially C Utilities Answer Date Recorded In the past 12 months has [employer], gas, oil, or water company threatened to [...] and heating? Not hard at all 01/17/2025 [facility] - Occupational Stress Questionnaire Answer Date [...] GED or equivalent No 01/17/2025 Preferred Language Salvadorean 01/17/2025 PHQ-2 Answer Date Recorded Patient Health [...] 11:07 PM EDT Atiya Gordon RN * [place] Suicide Severity Rating Scale (Screener/Recent Self-Report) Question [...] tablet Commonly known as: ADALAT CC nystatin 466209 UNIT/GM powder Commonly known as: MYCOSTATIN Disposition:Home or Self Care Follow up: She will have an-other NST later this week and is scheduled for an induction on 01/28 Neymar Winters MD documented in this encounter Discharge Instructions * Attachments The following attachments cannot be sent through Care Everywhere. * High Blood Pressure During (Salvadorean) documented in this encounter Medications at Time [...] 01/19/2025 7:25 AM EDT Fili Mercado Kenji [id number] 2000 Referring physician: Oliverio Amanda MD Chief [...] - 01/18/2025 7:18 AM EDT Fili Rosen [id number] 2000 Referring physician: Oliverio Amanda MD Chief [...] 01/17/2025 11:00 PM EDT Fili Rosen 2000 [id number] Referring physician: Oliverio Amanda MD CC: chron HTN with superimposed preeclampsia HPI: Patient is 24 y.o. female currently at 35w5d presented to [facility] for c/o headache andelevated BP at home. Pt had several severe range pressures there and received a 20mg and 40mg dose of IV labetalol prior to transfer. Pt was started on magnesium (4g/2g) and transferred here for care. PNC comp by chron HTN on labetalol 200mg tid and procardia 30XL/d and asthma. SCANLON was initially 7-8 and is now 08/12. Labs at [place] were all normal. PMH: Current meds: albuterol [...] in this encounter Consult Notes * Akanksha Moroe MD - 01/20/2025 11:09 AM EDTAssociated Order(s): [...] not taking: Reported on 12/12/2024) nystatin (MYCOSTATIN) 340230 UNIT/GM powder As Needed. ALLERGIES Erythromycin SOCIAL [...] which greater than 50% was spent in pyxe-ck-ncew consultation and coordination of care. Akanksha Moore [...] Procedure Name Priority Date/Time Associated Diagnosis Comments [facility] STAT 01/20/2025 10:43 AM [...] in this encounter Results * [facility] (01/20/2025 10:43 AM EDT) Anatomical Region Laterality Modality Ultrasound 01/20/2025 10:4 2 AM EDT Narrative 01/20/2025 11:40 AM EDT PAT NAME: FILI ROSEN MED REC#: [id number] DA: [id number] PAT GEND: F PAT TYPE: I EXAM MYRON: [id number] REF PHYS PEPITO BUITRAGO Comparison Studies The [...] EFW (oz) 1 oz EFW by: Hadlock ([id number]) Extended Cav. septi pel. tr 5.1 mm Assistant Spa Director 5.1 mm Head / Face / Neck [...] Normal Heart / Thorax 3-vessel view: Normal 4-oyjzfg-veetraz view: normal Stomach: Appears normal Kidneys: Appears [...] Recommend delivery at 37wks. Coding ====== Description: 83913-12 Follow Up Ultrasound Description: 32884-15 BPP without NST Description: 07346-08 Doppler Umbilical Artery Gravel Inspector: Delmy Xiong RDMS Physician: Akanksha Moore MD Electronically signed by: Akanksha Moore MD at: 11:27 Procedure Note Akanksha Moore MD - 01/21/2025 PAT NAME: FILI ROSEN MED REC#: [id number] DA: [id number] PAT GEND: F PAT TYPE: I EXAM MYRON: [id number] REF PHYS PEPITO BUITRAGO Comparison Studies The findings of this study are compared to the prior ultrasound studydated 12/12/24 Patient Status Inpatient Indication ======== CHTN. Rheumatoid arthritis. Maternal chiari malformation. Hx SVT withablation 2022. Vapes. Obesity BMI 34. Maternal Assessment Zyouev649 cm Yysyok65 kg Weight (lb)211 lb BMI34.32 kg/m Method ======= Transabdominal ultrasound examination. View: Adequate view ========= Beltran . Number of fetuses: 1 Dating ====== Method of dating:based on stated TIFFANY GA by prior [id number] w + 1 d TIFFANY by prior assessment:02/16/2025 Ultrasound examination on:01/20/2025 GA by U/S based upon:AC, BPD, Femur, HC GA by U/S36 w + 1 d TIFFANY by U/S:02/16/2025 Previous dating:based on stated TIFFANY, selected on 12/12/2024 Agreed TIFFANY of previous datin02/16/2025 Assigned:based on stated TIFFANY, selected on 01/20/2025 Assigned GA36 w + 1 d Assigned TIFFANY:02/16/2025 [id number] d Biometry Standard BPD89.1 mm 36w 0d 57% Hadlock CXZ425.1 mm 38w 4d 81% Ermelinda HC330.1 mm 37w 4d 55% Hadlock AC312.4 mm 35w 1d 32% Hadlock Femur70.2 mm 36w 0d 42% Hadlock HC / AC1.06 EFW2,755 g 35w 5d 41% Hadlock EFW (lb)6 lb EFW (oz)1 oz EFW by:Hadlock ([id number]) Extended Cav. septi pel. tr5.1 mm Vp5.1 mm Head / Face / Neck Cephalic index0.79 23% Nicolaides Extremities / Bony Struc FL / BPD0.79 FL / HC0.21 FL / AC0.22 Other Structures JPB202 bpm General Evaluation Cardiac activity present. FHR [...] LVOT view:Normal Heart / Thorax 3-vessel view:Normal 9-dkoaiw-blggmfy view:normal Stomach:Appears normal Kidneys:Appears normal Bladder:Appears normal [...] labs. Recommend delivery at 37wks. Coding ====== Description:58891-53 Follow Up Ultrasound Description:86486-43 BPP without NST Description:45915-36 Doppler Umbilical Artery Gravel Inspector: Delmy Xiong RDMS Physician: Akanksha Moore MD Electronically signed by: Akanksha Moore MD at: 11:27 Neymar Winters MD IM US ORDERABLES Edited Resul t - Final * Preeclampsia Panel (01/19/2025 9:10 AM EDT) Pathologist [facility] Alkaline Phosphatase 94 39 - 117 U/L 01/19/2025 10:11 AM EDT [facility] ALT (SGPT) 8 1 - 33 U/L 01/19/2025 10:11 AM EDT [facility] AST (SGOT) 11 1 - 32 U/L 01/19/2025 10:11 AM EDT [facility] Creatinine 0.58 0.57 - 1.00 mg/dL 01/19/2025 10:11 AM EDT [facility] Total Bilirubin 0.2 0.0 - 1.2 mg/dL 01/19/2025 10:11 AM EDT [facility] LDH 148 135 - 214 U/L 01/19/2025 10:11 AM EDT [facility] Uric Acid 5.2 2.4 - 5.7 mg/dL 01/19/2025 10:11 AM EDT [facility] Blood Venipuncture / Unknown 01/19/2025 9:10 AM EDT 01/19/2025 9:39 AM EDT Jeffery Cruz DO LAB BLOOD ORDERABLES Final Result [facility]
[address] [place] [address], * (ABNORMAL) CBC (No Diff) (01/19/2025 9:10 AM EDT) Pathologist [facility] WBC 7.71 3.40 - 10.80 10*3/mm3 01/19/2025 10:10 AM EDT [facility] RBC 3.25(L) 3.77 - 5.28 10*6/mm3 01/19/2025 10:10 AM EDT [facility] Hemoglobin 9.8(L) 12.0 - 15.9 g/dL 01/19/2025 10:10 AM EDT [facility] Hematocrit 29.5(L) 34.0 - 46.6 % 01/19/2025 10:10 AM EDT [facility] MCV 90.8 79.0 - 97.0 fL 01/19/2025 10:10 AM EDT [facility] MCH 30.2 26.6 - 33.0 pg 01/19/2025 10:10 AM EDT [facility] MCHC 33.2 31.5 - 35.7 g/dL 01/19/2025 10:10 AM EDT [facility] RDW 13.2 12.3 - 15.4 % 01/19/2025 10:10 AM EDT [facility] RDW-SD 43.2 37.0 - 54.0 fl 01/19/2025 10:10 AM EDT [facility] MPV 10.0 6.0 - 12.0 fL 01/19/2025 10:10 AM EDT [facility] Platelets 216 140 - 450 10*3/mm3 01/19/2025 10:10 AM T [facility] Blood Venipuncture / Unknown 01/19/2025 9:10 AM EDT 01/19/2025 9:39 AM EDT Jeffery Cruz DO LAB BLOOD ORDERABLES Final Result [facility]
[address] [place] [address], * (ABNORMAL) Protein, Urine, 24 Hour - Urine, Clean Catch (01/19/2025 7:36 AM EDT) Protein, 24H Urine 262.2(H) 0.0 - 150.0 mg/24hours 01/19/2025 8:10 AM EDT [facility] 24H Urine Volume 5,350 mL 01/19/2025 8:10 AM EDT [facility] Time (Hours) 24 hrs 01/19/2025 8:10 AM EDT [facility] 24 Hour Urine Urine specimen obtained by clean catch procedure / Unknown 01/19/2025 7:36 AM EDT 01/19/2025 7:36 AM EDT Narrative [facility] - 01/19/2025 8:10 AM EDT Reference ranges are based on a 24 hour period, interperet results accordingly. us Zeb Gonzalez MD URINE ORDERABLES Final Result Performing Organization Address City/[facility]/ZIP Co de Phone Number [facility]
[address] [place] [address], * ABO RH Specimen Verification (01/18/2025 1:33 AM EDT) ABO Type O 01/18/2025 1:42 PM EDT [facility] RH type Positive 01/18/2025 1:42 PM EDT [facility] Blood Venipuncture / Unknown 01/18/2025 1:33 AM EDT 01/18/2025 1:45 AM EDT us Zeb Gonzalez MD BLOOD BANK TEST ORDERABLES Sintia l Result Performing Organization Address City/[facility]/ZIP Co de Phone Number [facility]
[address] [place] [address], [place] [phone] * (ABNORMAL) Comprehensive Metabolic Panel (01/17/2025 11:50 PM EDT) Glucose 81 65 - 99 mg/dL 01/18/2025 12:36 AM EDT [facility] BUN 4.3(L) 6.0 - 20.0 mg/dL 01/18/2025 12:36 AM EDT [facility] Creatinine 0.46(L) 0.57 - 1.00 mg/dL 01/18/2025 12:36 AM [facility] Sodium 137 136 - 145 mmol/L 01/18/2025 12:36 AM [facility] Potassium 4.0 3.5 - 5.2 mmol/L 01/18/2025 12:36 AM [facility] Comment:Specimen hemolyzed. Result may be falsely elevated. Chloride 105 98 - 107 mmol/L 01/18/2025 12:36 AM [facility] CO2 17.5(L) 22.0 - 29.0 mmol/L 01/18/2025 12:36 AM [facility] Calcium 8.3(L) 8.6 - 10.5 mg/dL 01/18/2025 12:36 AM [facility] Total Protein 6.5 6.0 - 8.5 g/dL 01/18/2025 12:36 AM [facility] Albumin 3.6 3.5 - 5.2 g/dL 01/18/2025 12:36 AM [facility] ALT (SGPT) 10 1 - 33 U/L 01/18/2025 12:36 AM [facility] AST (SGOT) 19 1 - 32 U/L 01/18/2025 12:36 AM [facility] Alkaline Phosphatase 100 39 - 117 U/L 01/18/2025 12:36 AM [facility] Total Bilirubin 0.3 0.0 - 1.2 mg/dL 01/18/2025 12:36 AM [facility] Globulin 2.9 gm/dL 01/18/2025 12:36 AM [facility] Comment:Calculated Result A/G Ratio 1.2 g/dL 01/18/2025 12:36 AM [facility] BUN/Creatinine Ratio 9.3 7.0 - 25.0 01/18/2025 12:36 AM [facility] Anion Gap 14.5 5.0 - 15.0 mmol/L 01/18/2025 12:36 AM [facility] eGFR 138.1 >60.0 mL/min/1.7 3 01/18/2025 12:36 AM EDT [facility] Blood Venipuncture / Unknown 01/17/2025 11:50 PM EDT 01/18/2025 12:02 AM EDT Narrative [facility] - 01/18/2025 12:36 AM EDT [...] ORDERABLES Final Resu lt Performing Organization Address City/[facility]/ZIP Co de Phone Number [facility]
[address] [place] [address], [place] [phone] * Uric Acid (01/17/2025 11:50 PM EDT) Uric Acid 4.6 2.4 - 5.7 mg/dL 01/18/2025 12:32 AM EDT [facility] Comment:Falsely depressed re sults may occur on samples drawn from patients receiving N-Acetylcysteine (NAC) or Metamizole. Blood Venipuncture / Unknown 01/17/2025 11:50 PM EDT 01/18/2025 12:02 AM EDT us Zeb Gonzalez MD LAB BLOOD ORDERABLES Final Resu lt [facility]
[address] [place] [address], [place] [phone] * Lactate Dehydrogenase (01/17/2025 11:50 PM EDT) Pathologist [facility] LDH 210 135 - 214 U/L 01/18/2025 12:37 AM EDT [facility] Comment:Specimen hemolyzed. Results may be affected. Blood Venipuncture / Unknown 01/17/2025 11:50 PM EDT 01/18/2025 12:02 AM EDT us Zeb Gonzalez MD LAB BLOOD ORDERABLES Final Resu lt [facility]
[address] [place] [address], * Type & Screen (01/17/2025 11:50 PM EDT) Pathologist [facility] ABO Type O 01/18/2025 1:10 AM EDT [facility] RH type Positive 01/18/2025 1:10 AM EDT [facility] Antibody Screen Negative 01/18/2025 1:10 AM EDT [facility] T&S Expiration Date 01/20/2025 11:59:59 PM 01/18/2025 1:10 AM EDT [facility] Blood Venipuncture / Unknown 01/17/2025 11:50 PM EDT 01/18/2025 12:30 AM EDT us Zeb Gonzalez MD BLOOD BANK TEST ORDERABLES Edit ed Result - Final [facility]
[address] [place] [address], * Treponema pallidum AB w/Reflex RPR (01/17/2025 11:50 PM EDT) Pathologist [facility] Treponemal AB Total Non-Reacti ve Non-React chip 01/18/2025 12:27 PM EDT [facility] Blood Venipuncture / Unknown 01/17/2025 11:50 PM EDT 01/18/2025 12:02 AM EDT Narrative [facility] - 01/18/2025 12:27 PM EDT Reactive results will reflex RPR testing. Zeb Gonzalez MD LAB BLOOD ORDERABLES Final Resu lt [facility]
[address] [place] [address], * (ABNORMAL) CBC (No Diff) (01/17/2025 11:50 PM EDT) WBC 11.12(H) 3.40 - 10.80 10*3/mm3 01/18/2025 12:04 AM EDT [facility] RBC 3.83 3.77 - 5.28 10*6/mm3 01/18/2025 12:04 AM EDT [facility] Hemoglobin 11.8(L) 12.0 - 15.9 g/dL 01/18/2025 12:04 AM EDT [facility] Hematocrit 33.6(L) 34.0 - 46.6 % 01/18/2025 12:04 AM EDT [facility] MCV 87.7 79.0 - 97.0 fL 01/18/2025 12:04 AM EDT [facility] MCH 30.8 26.6 - 33.0 pg 01/18/2025 12:04 AM EDT [facility] MCHC 35.1 31.5 - 35.7 g/dL 01/18/2025 12:04 AM EDT [facility] RDW 12.9 12.3 - 15.4 % 01/18/2025 12:04 AM EDT [facility] RDW-SD 41.0 37.0 - 54.0 fl 01/18/2025 12:04 AM EDT [facility] MPV 10.0 6.0 - 12.0 fL 01/18/2025 12:04 AM EDT [facility] Platelets 274 140 - 450 10*3/mm3 01/18/2025 12:04 AM EDT [facility] Blood Venipuncture / Unknown 01/17/2025 11:50 PM EDT 01/18/2025 12:01 AM EDT Zeb Gonzalez MD LAB BLOOD ORDERABLES Final Resu lt [facility]
[address] [place] [address], * LABS SCANNED (01/17/2025) [facility] LAB BLOOD ORDERABLES Final Re sult * Telemetry Scan (01/17/2025) [facility] Onbase ECG ORDERABLES Final Result documented [...] Given 01/19/2025 8:15 AM EDT 81 mg hvgeumdxzj-fjmpdpqdlrjll-ncbtieha (FIORICET, ESGIC) 50-325-40 MG per tablet 2 [...] NPO. documented in this encounter Care Teams Absence Management Consultant Relationship Specialty Start Date End Date Destiny Seymour PA [address] [place] [address] [place] [address] [facility] [address] PCP - General Physician Senior Engineer 09/14/22 documented as of this encounter
--- OUTSIDE RECORDS SUMMARY | 2025-02-07 13:39 | XMS_ITS | Clinical Summary ---
Author Organization [facility] Address [address] [place] [address] Care Team Providers Care Microbiological Laboratory Technician Name Role Phone Destiny Seymour Primary Care Provider [phone] Allergies Active Allergy Reactions Criticality Noted Date [...] ued(Stop Taking at Discharge ) nystatin (MYCOSTATIN) 688189 UNIT/GM powder As Needed. 08/23/19 25 025 [...] - 01/20/2025 12:12 PM EDT Hospital Encounter [facility] [address] [place] [address] Zeb Gonzalez MD Discharge Disposition: Home or Self Care 01/17/2025 Travel 12/12/2024 1:45 PM EDT Office Visit [facility] [address] [place] [address] John Mendoza MD Chronic hypertension complicating or reason for care during , second trimester (Primary Dx) 12/12/2024 1:26 PM EDT - 12/12/2024 11:59 PM EDT Hospital Encounter [facility] PER DIAG [facility] [address] [place] [address] John Mendoza MD Paroxysmal SVT (supraventricular tachycardia); Chronic hypertension complicating or reason for care during , second trimester Discharge Disposition: Home or Self Care 12/12/2024 Travel from Last 3 Months Family History [...] oz pur e alcohol) socially [facility] Megathreadities Answer Date Recorded In the past 12 months has th e Contour, gas, oil, or water Cell>Point threatened to shut off services in your [...] heating? Not hard at all 01/17/2025 [facility] [place] of Occupat ional Health - Occupational Stress [...] GED or equivalent No 01/17/2025 Preferred Language Scottish 01/17/2025 PHQ-2 Answer Date Recorded Patient Health [...] Name Priority Date/Time Associated Diagnosis Comments [facility] STAT 01/20/2025 [...] - TELEMETRY 01/17/2025 SCANNED - LABS 01/17/2025 [facility] Routine 12/12/2024 2:10 PM EDT Paroxysmal SVT (supraventricular tachycardia) Chronic hypertension complicating or reason for care during , second trimester from Last 3 Months Results * [facility] (01/20/2025 10:43 AM EDT) Only the most recent of2 resultswithin the time period is included. Anatomical Region Laterality Modality Ultrasound 01/20/2025 10:4 2 AM EDT Narrative 01/20/2025 11:40 AM EDT PAT NAME: FILI PHILLIP MED REC#: [id number] DA: 2000 PAT GEND: F PAT TYPE: I EXAM MYRON: [id number] REF PHYS PEPITO BUITRAGO Comparison Studies The [...] EFW (oz) 1 oz EFW by: Hadlock ([id number]) Extended Cav. septi pel. tr 5.1 mm Set Up Machinist 5.1 mm Head / Face / Neck [...] Normal Heart / Thorax 3-vessel view: Normal 0-qihxfz-xxnsxoz view: normal Stomach: Appears normal Kidneys: Appears [...] Recommend delivery at 37wks. Coding ====== Description: 62372-03 Follow Up Ultrasound Description: 68666-09 BPP without NST Description: 57310-71 Doppler Umbilical Artery Plate Glass Grinder: Delmy Xiong RDMS Physician: Akanksha Moore MD Electronically signed by: Akanksha Moore MD at: 11:27 Procedure Note Akanksha Moore MD - 01/21/2025 PAT NAME: FILI PHILLIP MED REC#: [id number] DA: 2000 PAT GEND: F PAT TYPE: I EXAM MYRON: [id number] REF PHYS PEPITO BUITRAGO Comparison Studies The findings of this study are compared to the prior ultrasound studydated 12/12/24 Patient Status Inpatient Indication ======== CHTN. Rheumatoid arthritis. Maternal chiari malformation. Hx SVT withablation 2022. Vapes. Obesity BMI 34. Maternal Assessment Amwpmf280 cm Wirzey12 kg Weight (lb)211 lb BMI34.32 kg/m Method ======= Transabdominal ultrasound examination. View: Adequate view ========= Beltran . Number of fetuses: 1 Dating ====== Method of dating:based on stated TIFFANY GA by prior aeajbpognx29 w + 1 d TIFFANY by prior [...] Standard BPD89.1 mm 36w 0d 57% Hadlock YUA261.1 mm 38w 4d 81% Ermelinda HC330.1 mm 37w 4d 55% Hadlock AC312.4 mm 35w 1d 32% Hadlock Femur70.2 mm 36w 0d 42% Hadlock HC / AC1.06 EFW2,755 g 35w 5d 41% Hadlock EFW (lb)6 lb EFW (oz)1 oz EFW by:Hadlock ([id number]) Extended Cav. septi pel. tr5.1 mm Vp5.1 mm Head / Face / Neck Cephalic index0.79 23% Nicolaides Extremities / Bony Struc FL / BPD0.79 FL / HC0.21 FL / AC0.22 Other Structures LKV433 bpm General Evaluation Cardiac activity present. FHR [...] LVOT view:Normal Heart / Thorax 3-vessel view:Normal 0-kjqdzb-nvxryte view:normal Stomach:Appears normal Kidneys:Appears normal Bladder:Appears normal [...] labs. Recommend delivery at 37wks. Coding ====== Description:46848-15 Follow Up Ultrasound Description:65306-72 BPP without NST Description:78644-48 Doppler Umbilical Artery Plate Glass Grinder: Delmy Xiong RDMS Physician: Akanksha Moore MD Electronically signed by: Akanksha Moore MD at: 11:27 us Neymar Winters MD IMG US ORDERABLES Edited Resul t - Final * Preeclampsia Panel (01/19/2025 9:10 AM EDT) Alkaline Phosphatase 94 39 - 117 U/L 01/19/2025 10:11 AM EDT [facility] ALT (SGPT) 8 1 - 33 U/L 01/19/2025 10:11 AM EDT [facility] AST (SGOT) 11 1 - 32 U/L 01/19/2025 10:11 AM EDT [facility] Creatinine 0.58 0.57 - 1.00 mg/dL 01/19/2025 10:11 AM EDT [facility] Total Bilirubin 0.2 0.0 - 1.2 mg/dL 01/19/2025 10:11 AM EDT [facility] LDH 148 135 - 214 U/L 01/19/2025 10:11 AM EDT [facility] Uric Acid 5.2 2.4 - 5.7 mg/dL 01/19/2025 10:11 AM EDT [facility] Blood Venipuncture / Unknown 01/19/2025 9:10 AM EDT 01/19/2025 9:39 AM EDT us Jeffery Cruz DO LAB BLOOD ORDERABLES Final Result [facility]
[address] [place] [address], * (ABNORMAL) CBC (No Diff) (01/19/2025 9:10 AM EDT) Only the most recent of2 resultswithin the time period is included. WBC 7.71 3.40 - 10.80 10*3/mm3 01/19/2025 10:10 AM EDT [facility] RBC 3.25(L) 3.77 - 5.28 10*6/mm3 01/19/2025 10:10 AM EDT [facility] Hemoglobin 9.8(L) 12.0 - 15.9 g/dL 01/19/2025 10:10 AM EDT [facility] Hematocrit 29.5(L) 34.0 - 46.6 % 01/19/2025 10:10 AM EDT [facility] MCV 90.8 79.0 - 97.0 fL 01/19/2025 10:10 AM EDT [facility] MCH 30.2 26.6 - 33.0 pg 01/19/2025 10:10 AM EDT [facility] MCHC 33.2 31.5 - 35.7 g/dL 01/19/2025 10:10 AM EDT [facility] RDW 13.2 12.3 - 15.4 % 01/19/2025 10:10 AM EDT [facility] RDW-SD 43.2 37.0 - 54.0 fl 01/19/2025 10:10 AM EDT [facility] MPV 10.0 6.0 - 12.0 fL 01/19/2025 10:10 AM EDT [facility] Platelets 216 140 - 450 10*3/mm3 01/19/2025 10:10 AM EDT [facility] Blood Venipuncture / Unknown 01/19/2025 9:10 AM EDT 01/19/2025 9:39 AM EDT us Jeffery Cruz DO LAB BLOOD ORDERABLES Final Result [facility]
[address] [place] [id number], * (ABNORMAL) Protein, Urine, 24 Hour - Urine, Clean Catch (01/19/2025 7:36 AM EDT) Protein, 24H Urine 262.2(H) 0.0 - 150.0 mg/24hours 01/19/2025 8:10 AM EDT [facility] 24H Urine Volume 5,350 mL 01/19/2025 8:10 AM EDT [facility] Time (Hours) 24 hrs 01/19/2025 8:10 AM EDT [facility] 24 Hour Urine Urine specimen obtained by clean catch procedure / Unknown 01/19/2025 7:36 AM EDT 01/19/2025 7:36 AM EDT Narrative [facility] - 01/19/2025 8:10 AM EDT Reference ranges are based on a 24 hour period, interperet results accordingly. us Zeb Gonzalez MD URINE ORDERABLES Final Result Performing Organization Address City/[facility]/ZIP Co de Phone Number [facility]
[address] [place] [address], * ABO RH Specimen Verification (01/18/2025 1:33 AM EDT) ABO Type O 01/18/2025 1:42 PM EDT [facility]ORAT[facility] RH type Positive 01/18/2025 1:42 PM EDT [facility] Blood Venipuncture / Unknown 01/18/2025 1:33 AM EDT 01/18/2025 1:45 AM EDT us Zeb Gonzalez MD BLOOD BANK TEST ORDERABLES Sintia l Result [facility]
[address] [place] [address], [place] [phone] * Treponema pallidum AB w/Reflex RPR (01/17/2025 11:50 PM EDT) Treponemal AB Total Non-Reacti ve Non-React chip 01/18/2025 12:27 PM EDT [facility] Blood Venipuncture / Unknown 01/17/2025 11:50 PM EDT 01/18/2025 12:02 AM EDT Narrative [facility] - 01/18/2025 12:27 PM EDT Reactive results will reflex RPR testing. us Zeb Gonzalez MD LAB BLOOD ORDERABLES Final Resu lt [facility]
[address] [place] [address], * Type & Screen (01/17/2025 11:50 PM EDT) ABO Type O 01/18/2025 1:10 AM EDT [facility] BB LABORATORY RH type Positive 01/18/2025 1:10 AM EDT [facility]OR[facility]ORY Antibody Screen Negative 01/18/2025 1:10 AM EDT [facility] T&S Expiration Date 01/20/2025 11:59:59 PM 01/18/2025 1:10 AM EDT [facility] Blood Venipuncture / Unknown 01/17/2025 11:50 PM EDT 01/18/2025 12:30 AM EDT us Zeb Gonzalez MD BLOOD BANK TEST ORDERABLES Edit ed Result - Final [facility]
[address] [place] [address], [place] [phone] * Uric Acid (01/17/2025 11:50 PM EDT) Uric Acid 4.6 2.4 - 5.7 mg/dL 01/18/2025 12:32 AM EDT [facility] Comment:Falsely depressed re sults may occur on samples drawn from patients receiving N-Acetylcysteine (NAC) or Metamizole. Blood Venipuncture / Unknown 01/17/2025 11:50 PM EDT 01/18/2025 12:02 AM EDT us Zeb Gonzalez MD LAB BLOOD ORDERABLES Final Resu lt Performing Organization Address City/[facility]/ZIP Co de Phone Number [facility]
[address] [place] [address], [place] [phone] * Lactate Dehydrogenase (01/17/2025 11:50 PM EDT) LDH 210 135 - 214 U/L 01/18/2025 12:37 AM EDT [facility] Comment:Specimen hemolyzed. Results may be affected. Blood Venipuncture / Unknown 01/17/2025 11:50 PM EDT 01/18/2025 12:02 AM EDT us Zeb Gonzalez MD LAB BLOOD ORDERABLES Final Resu lt Performing Organization Address [facility] Co de Phone Number [facility]
[address] [place] [address], [place] [phone] * (ABNORMAL) Comprehensive Metabolic Panel (01/17/2025 11:50 PM EDT) Glucose 81 65 - 99 mg/dL 01/18/2025 12:36 AM EDT [facility] BUN 4.3(L) 6.0 - 20.0 mg/dL 01/18/2025 12:36 AM EDT [facility] Creatinine 0.46(L) 0.57 - 1.00 mg/dL 01/18/2025 12:36 AM EDT [facility] Sodium 137 136 - 145 mmol/L 01/18/2025 12:36 AM EDT [facility] Potassium 4.0 3.5 - 5.2 [...] 138.1 >60.0 mL/min/1.7 3 01/18/2025 12:36 AM [facility] Blood Venipuncture / Unknown 01/17/2025 11:50 PM EDT 01/18/2025 12:02 AM EDT Narrative [facility] - 01/18/2025 12:36 AM [...] does not include race as a factor Zeb Gonzalez MD LAB BLOOD ORDERABLES Final Resu lt [facility]
[address] [place] [address], * Telemetry Scan (01/17/2025) [facility] Onbase ECG ORDERABLES Final Result * LABS SCANNED (01/17/2025) [facility] Onbase LAB BLOOD ORDERABLES Final Re sult from Last [address] [place] [address] [place] [employer] PPO Member Subscriber Plan / Payer (Ef fective 2023-Present) Name:Fili Phillip Relation to Subscriber:Child Name:Silas Phillip Date of :1967 (Home) Address: [address] [place] [address] [place] [address] Payer ID:[id number] (NAIC) Type:Not on file Address: [address] [place] [id number] Advance Directives * CPR (Attempt to Resuscitate) (Latest Code Status on File) Date Activated Date Inactivated Comments 01/17/2025 11:22 PM 01/20/2025 2:14 PM Question Answer Comments Code Status (Patient has no pulse and is not breathing): CPR (Attempt to Resuscitate) Medical Interventions (Patie nt has pulse or is breathing): Full Support Level Of Support Discussed With: Patient Care Teams Microbiological Laboratory Technician Relationship Specialty Start Date End Date Destiny Seymour PA [address] [place] [address] [place] [address] PCP - General Physician Lab Support Tech 09/14/22
--- OUTSIDE RECORDS SUMMARY | 2025-02-07 13:40 | XMS_ITS | Clinical Summary ---
Author Organization Healthcare Address [address] [place] [address] Care Team Providers Care Parking Enforcer Name Role Phone Leah Jasso APRN Primary Care Provider [phone] Family History Medical History Relation Name Comments [...] 19+ 3-dose series) 2020 UKY-Pap Smear 2022 RST-HWEIB-65 Vaccine (1 - 20 24-25 season) 2024 [...] to [place] this [place] [address] W[place] Care Teams Parking Enforcer Relationship Specialty Start Date End Date Leah Jasso APRN [address] [facility] [address] [place] [address] PCP - General 11/13/20
--- OUTSIDE RECORDS SUMMARY | 2025-02-07 13:40 | XMS_ITS | Encounter Summary ---
Author Organization [facility] Address [address] [place] [address] Care Team Providers Care Margarine Churn Operator Name Role Phone Destiny Seymour Primary Care Provider [phone] Encounter Details Date Type Department Care Team [...] on filedocumented in this encounter Care Teams Margarine Churn Operator Relationship Specialty Start Date End Date Destiny Seymour PA [address] [place] [address] [address] PCP - General Physician Start Up Specialist 09/14/22 documented as of this encounter
--- OUTSIDE RECORDS SUMMARY | 2025-02-07 13:40 | XMS_ITS | Clinical Summary ---
Author Organization [facility] [place] [facility] Address [address] [place] [address] Phone Care Team Providers Care Setter Molding And Coremaking Machines Name Role Phone Unavailable Primary Care Provider Unavailabl e Allergies No known active allergies Active Problems Problem Noted Date Diagnosed Date S/P RF ablation operation for arrhythmia 023 Overview (03/02/2023): EPS, SVT Ablation 11/25/22-Dr. Demetrio Pearson @ [facility] SVT (supraventricular tachycardia) Surgical History Surgery Date Site/Laterality Comments CYST REMOVAL 08/31/2020 - 09/30/2020 Right R Hand Cyst Removal ABLATION OF DYSRHYTHMIC FOCUS 11/25/2022 EPS, SVT Ablation-Dr. Demetrio Pearson @ [facility] Medical History Medical History Date Comments [...]
--- OUTSIDE RECORDS SUMMARY | 2025-02-07 13:40 | XMS_ITS | Encounter Summary ---
Author Organization [facility] Address [address] [place] [address] Care Team Providers Care Treasury Associate Name Role Phone Destiny Seymour Primary Care Provider [phone] Encounter Details Date Type Department Care Team (Latest Contact Info) Description 01/17/2025 Travel 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 Tobacco Use Types Packs/Day Years Used Date Smoking Tobacco: Never Passive Smoke Exposure: Past Smokeless Tobacco: Never Alcohol Use Standard Drinks/Week Comments Not Currently 2 (1 standard drink = 0.6 oz pur e alcohol) socially [facility] Utilities Answer Date Recorded In the past 12 months has [employer] electric, gas, oil, or water company threatened [...] and heating? Not hard at all 01/17/2025 [facility] [place] of Occupat ional Health - Occupational Stress [...] 11:07 PM HARLANT Atiya Gordon RN * [place] Suicide Severity Rating Scale (Screener/Recent Self-Report) Question [...] on filedocumented in this encounter Care Teams Treasury Associate Relationship Specialty Start Date End Date Destiny Seymour PA [address] [place] [address] [facility] [address] [place] [address] PCP - General Physician Maint Mechanic 09/14/22 documented as of this encounter
--- OUTSIDE RECORDS SUMMARY | 2025-02-07 13:42 | XMS_ITS | Patient Health Record ---
Author Organization [facility] Address [address] [place] [id number] Care Team Providers Care Mounter Flutes And Piccolos Name Role Phone Destiny Seymour Unavailable [phone] Allergies Allergen (clinical drug ingredient) Drug/Non Drug [...] Last Name Dawn Referring Provider Speciality Physician Marketing Communications Specialist Referred Provider Rheumatology, . Referred Provider Specialty Rheumatology General Notes Destiny Seymour 2023 11:16:04 AM > PT needs an appt with Pepper Bonilla Brynn 02/12/2024 11:44:56 AM > sent referral to Dr. Jacobs via [facility] website Referral Priority Routine Diagnosis 1 Rheumatoid arthritis with positive rheumatoid factor, involving unspecified site (M05.9) Referral Organization [facility] Referring Provider First Name Destiny Referring Provider Last Name Dawn Referring Provider Speciality Physician Marketing Communications Specialist Referred Provider Rheumatology, . Referred Provider [...] W/U Status Risk Notes Problem Supraventricular tachycardia (9714111) SVT (supraventricular tachycardia) (I47.1) Active confirmed Problem Paresthesia (26208329) Paresthesia (R20.2) Active confirmed Problem Mixed anxiety and depressive disorder (995426478) Depression with anxiety (F41.8) Active confirmed Problem Thyroid nodule (916396293) Thyroid nodule (E04.1) Active confirmed Problem Panic disorder (227996648) Panic attacks (F41.0) Active confirmed Problem Refractory migraine with aura (827742875) Intractable migraine with aura without status migrainosus (G43.119) Active confirmed Problem Cardiac arrhythmia (215496398) Cardiac arrhythmia, unspecified cardiac arrhythmia type (I49.9) Active confirmed Problem Refractory migraine (021994181) Intractable migraine without status migrainosus, unspecified migraine type (G43.919) Active confirmed Problem Thyromegaly (5870229) Thyromegaly (E01.0) Active confirmed Problem Migraine (94714063) Migraine syn drome (G43.909) Active confirmed Problem Gastroesophageal reflux disease (149656634) Gastroesophageal reflux disease, unspecified whether esophagitis present (K21.9) Active confirmed Problem Rheumatoid arthritis (93417233) Rheumatoid arthritis, involving unspecified site, unspecified whether rheumatoid factor present (M06.9) Active confirmed Problem Rheumatoid arthritis (69944231) Rheumatoid arthritis with positive rheumatoid factor, involving unspecified site (M05.9) Active confirmed Problem Tobacco user (151925387) Vaping nicotine dependence, non-tobacco product (F17.200) Active confirmed Problem Drug-induced insomnia (08225956515248) 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) Active confirmed Problem Compression of brain (76236545) 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) Active confirmed Vital Signs Heart Rate 85 /min 04/24/2024 Blood pressure diastolic 100 mm Hg 04/24/2024 Height 66 in 04/24/2024 Blood pressure systolic 134 mm Hg 04/24/2024 Weight 187.0 lbs 04/24/2024 BMI 30.18 kg/m2 04/24/2024 Encounters Encounter [facility] Date [facility] [address] [facility] [address] [place] [address] [place] [id number] 02/08/2024 Destiny Seymour Gastroesophageal ref lux disease, unspecified whether esophagitis present K21.9 and Rheumatoid arthritis, involving unspecified site, unspecified whether rheumatoid factor present M06.9 [facility] [address] [facility] [address] [place] [id number] 04/24/2024 Destiny Seymour Strep pharyngitis J0 2.0 and Rheumatoid arthritis with positive rheumatoid factor, involving unspecified site M05.9 [facility] [address] [facility] [address] [place] [id number] 08/01/2024 Destiny Seymour Assessments Encounter Date Diagnosis [...] Insured Coverage Start Date Coverage End Date FOR[facility]LY [facility] [employer] [facility] [address] [place] [address] [id number] FILI PHILLIP Self - patient is [...]
== END 2025-02-07 14:40 | disposition home or self-care (01) ==
LOC: OBOUT 13:37 → OB 13:39
PROVIDERS: Visit Provider Obstetrics & Gynecology
DX: Z39.1 Encounter for care and examination of lactating mother (principal)
CPT/HCPCS: 99211

== ENCOUNTER 2025-03-05 09:27 | Outpatient (CLI) | payer BC, SELFPAY ==
--- OUTSIDE RECORDS SUMMARY | 2025-01-17 22:36 | XMS_ITS | Encounter Summary ---
Author Organization [facility] Address [address] [place] [id number] Care Team Providers Care New Client Banking Services Clerk Name Role Phone Destiny Seymour Primary Care Provider [phone] Reason for Visit * Reason Comments Elevated [...] - 01/20/2025 12:12 PM EDT Hospital Encounter [facility] [address] [place] [id number] Zeb Gonzalez MD [address] [facility] [address] [place] [address] Discharge Disposition: Home or Self Care 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 Tobacco Use Types Packs/Day Years Used Date Smoking Tobacco: Never Passive Smoke Exposure: Past Smokeless Tobacco: Never Alcohol Use Standard Drinks/Week Comments Not Currently 2 (1 standard drink = 0.6 oz pur e alcohol) socially C Utilities Answer Date Recorded In the past 12 months has [employer], gas, oil, or water company threatened to [...] and heating? Not hard at all 01/17/2025 [facility] - Occupational Stress Questionnaire Answer Date [...] GED or equivalent No 01/17/2025 Preferred Language Argentine 01/17/2025 PHQ-2 Answer Date Recorded Patient Health [...] 11:07 PM EDT Atiya Gordon RN * [place] Suicide Severity Rating Scale (Screener/Recent Self-Report) Question [...] tablet Commonly known as: ADALAT CC nystatin 469029 UNIT/GM powder Commonly known as: MYCOSTATIN Disposition:Home or Self Care Follow up: She will have an-other NST later this week and is scheduled for an induction on 01/28 Neymar Winters MD documented in this encounter Discharge Instructions * Attachments The following attachments cannot be sent through Care Everywhere. * High Blood Pressure During (Argentine) documented in this encounter Medications at Time [...] 01/19/2025 7:25 AM EDT Fili Mercado Kenji [id number] 2000 Referring physician: Oliverio Amanda MD Chief [...] - 01/18/2025 7:18 AM EDT Fili Rosen [id number] 2000 Referring physician: Oliverio Amanda MD Chief [...] 01/17/2025 11:00 PM EDT Fili Rosen 2000 [id number] Referring physician: Oliverio Amanda MD CC: chron HTN with superimposed preeclampsia HPI: Patient is 24 y.o. female currently at 35w5d presented to [facility] for c/o headache and elevated BP at home. Pt had several severe range pressures there and received a 20mg and 40mg dose of IV labetalol prior to transfer. Pt was started on magnesium (4g/2g) and transferred here for care.PNC comp by chron HTN on labetalol 200mg tid and procardia 30XL/d and asthma. SCANLON was initially 7-02/09 and is now 08/12. Labs at [facility] were all normal. PMH: Current meds: albuterol [...] range pressures, abn labs, worse SCANLON Zeb Gonzalez MD 01/17/2025 23:00 EDT documented in this encounter [...] not taking: Reported on 12/12/2024) nystatin (MYCOSTATIN) 371393 UNIT/GM powder As Needed. ALLERGIES Erythromycin SOCIAL [...] which greater than 50% was spent in kobc-st-lyzw consultation and coordination of care. Akanksha Moore [...] Outcome: Progressing Goal: Patient-Specific Goal (Individualized) 01/20/2025 0540 by Felecia Wiseman RN Outcome: [...] Manage Fall Risk Recent Flowsheet Documentation Taken 01/19/2025 2100 by Felecia Wiseman RN Safety Promotion/Fall Prevention: [...] Procedure Name Priority Date/Time Associated Diagnosis Comments [facility] STAT 01/20/2025 10:43 AM [...] 01/17/2025 documented in this encounter Results * [facility] (01/20/2025 10:43 AM EDT) Anatomical Region Laterality Modality Ultrasound 01/20/2025 10:4 2 AM EDT Narrative 01/20/2025 11:40 AM EDT PAT NAME: FILI ROSEN MED REC#: [id number] DA: [id number] PAT GEND: F PAT TYPE: I EXAM MRYON: [id number] REF PHYS PEPITO BUITRAGO Comparison Studies The [...] EFW (oz) 1 oz EFW by: Hadlock ([id number]) Extended Cav. septi pel. tr 5.1 mm Pricing Manager 5.1 mm Head / Face / Neck [...] Normal Heart / Thorax 3-vessel view: Normal 1-qdfpuv-tbeuiej view: normal Stomach: Appears normal Kidneys: Appears [...] Recommend delivery at 37wks. Coding ====== Description: 61865-27 Follow Up Ultrasound Description: 33204-22 BPP without NST Description: 19787-51 Doppler Umbilical Artery Oil Well Fishing Tool Technician: Delmy Xiong RDMS Physician: Akanksha Moore MD Electronically signed by: Akanksha Moore MD at: 11:27 Procedure Note Akanksha Moore MD - 01/21/2025 PAT NAME: FILI ROSEN MED REC#: [id number] DA: 2000 PAT GEND: F PAT TYPE: I EXAM MYRON: [id number] REF PHYS PEPITO BUITRAGO Comparison Studies The findings of this study are compared to the prior ultrasound studydated 12/12/24 Patient Status Inpatient Indication ======== CHTN. Rheumatoid arthritis. Maternal chiari malformation. Hx SVT withablation 2022. Vapes. Obesity BMI 34. Maternal Assessment Fgwwky727 cm Xynunt29 kg Weight (lb)211 lb BMI34.32 kg/m Method ======= Transabdominal ultrasound examination. View: Adequate view ========= Beltran . Number of fetuses: 1 Dating ====== Method of dating:based on stated TIFFANY GA by prior [id number] w + 1 d TIFFANY by prior assessment:02/16/2025 Ultrasound examination on:01/20/2025 GA by U/S based upon:AC, BPD, Femur, HC GA by U/S36 w + 1 d TIFFANY by U/S:02/16/2025 Previous dating:based on stated TIFFANY, selected on 12/12/2024 Agreed TIFFANY of previous datin02/16/2025 Assigned:based on stated TIFFANY, selected on 01/20/2025 Assigned GA36 w + 1 d Assigned TIFFANY:02/16/2025 [id number] d Biometry Standard BPD89.1 mm 36w 0d 57% Hadlock QYB763.1 mm 38w 4d 81% Ermelinda HC330.1 mm 37w 4d 55% Hadlock AC312.4 mm 35w 1d 32% Hadlock Femur70.2 mm 36w 0d 42% Hadlock HC / AC1.06 EFW2,755 g 35w 5d 41% Hadlock EFW (lb)6 lb EFW (oz)1 oz EFW by:Hadlock ([id number]) Extended Cav. septi pel. tr5.1 mm Vp5.1 mm Head / Face / Neck Cephalic index0.79 23% Nicolaides Extremities / Bony Struc FL / BPD0.79 FL / HC0.21 FL / AC0.22 Other Structures [id number] bpm General Evaluation Cardiac activity present. FHR [...] LVOT view:Normal Heart / Thorax 3-vessel view:Normal 0-oycold-vsqlkls view:normal Stomach:Appears normal Kidneys:Appears normal Bladder:Appears normal [...] labs. Recommend delivery at 37wks. Coding ====== Description:46012-57 Follow Up Ultrasound Description:08514-36 BPP without NST Description:68765-56 Doppler Umbilical Artery Oil Well Fishing Tool Technician: Delmy Xiong RDMS Physician: Akanksha Moore MD Electronically signed by: Akanksha Moore MD at: 11:27 Neymar Winters MD [facility] US ORDERABLES Edited Resul t - Final * Preeclampsia Panel (01/19/2025 9:10 AM EDT) Alkaline Phosphatase 94 39 - 117 U/L 01/19/2025 10:11 AM EDT [facility] ALT (SGPT) 8 1 - 33 U/L 01/19/2025 10:11 AM EDT [facility] AST (SGOT) 11 1 - 32 U/L 01/19/2025 10:11 AM EDT [facility] Creatinine 0.58 0.57 - 1.00 mg/dL 01/19/2025 10:11 AM EDT [facility] Total Bilirubin 0.2 0.0 - 1.2 mg/dL 01/19/2025 10:11 AM EDT [facility] LDH 148 135 - 214 U/L 01/19/2025 10:11 AM EDT [facility] Uric Acid 5.2 2.4 - 5.7 mg/dL 01/19/2025 10:11 AM EDT [facility] Blood Venipuncture / Unknown 01/19/2025 9:10 AM EDT 01/19/2025 9:39 AM EDT Jeffery Cruz DO LAB BLOOD ORDERABLES Final Result [facility]
[address] [place] [address], * (ABNORMAL) CBC (No Diff) (01/19/2025 9:10 AM EDT) WBC 7.71 3.40 - 10.80 10*3/mm3 01/19/2025 10:10 AM EDT [facility] RBC 3.25(L) 3.77 - 5.28 10*6/mm3 01/19/2025 10:10 AM EDT [facility] Hemoglobin 9.8(L) 12.0 - 15.9 g/dL 01/19/2025 10:10 AM EDT [facility] Hematocrit 29.5(L) 34.0 - 46.6 % 01/19/2025 10:10 AM EDT [facility] MCV 90.8 79.0 - 97.0 fL 01/19/2025 10:10 AM EDT [facility] MCH 30.2 26.6 - 33.0 pg 01/19/2025 10:10 AM EDT [facility] MCHC 33.2 31.5 - 35.7 g/dL 01/19/2025 10:10 AM EDT [facility] RDW 13.2 12.3 - 15.4 % 01/19/2025 10:10 AM EDT [facility] RDW-SD 43.2 37.0 - 54.0 fl 01/19/2025 10:10 AM EDT [facility] MPV 10.0 6.0 - 12.0 fL 01/19/2025 10:10 AM EDT [facility] Platelets 216 140 - 450 10*3/mm3 01/19/2025 10:10 AM [facility] Blood Venipuncture / Unknown 01/19/2025 9:10 AM EDT 01/19/2025 9:39 AM EDT Jeffery Cruz DO LAB BLOOD ORDERABLES Final Result [facility]
[address] [place] [address], * (ABNORMAL) Protein, Urine, 24 Hour - Urine, Clean Catch (01/19/2025 7:36 AM EDT) Protein, 24H Urine 262.2(H) 0.0 - 150.0 mg/24hours 01/19/2025 8:10 AM EDT [facility] 24H Urine Volume 5,350 mL 01/19/2025 8:10 AM EDT [facility] Time (Hours) 24 hrs 01/19/2025 8:10 AM EDT [facility] 24 Hour Urine Urine specimen obtained by clean catch procedure / Unknown 01/19/2025 7:36 AM EDT 01/19/2025 7:36 AM EDT Narrative [facility] - 01/19/2025 8:10 AM EDT Reference ranges are based on a 24 hour period, interperet results accordingly. us Zeb Gonzalez MD URINE ORDERABLES Final Result Performing Organization Address City/[facility]/ZIP Co de Phone Number [facility]
[address] [place] [address], [place] [phone] * ABO RH Specimen Verification (01/18/2025 1:33 AM EDT) ABO Type O 01/18/2025 1:42 PM EDT [facility] RH type Positive 01/18/2025 1:42 PM EDT [facility] Blood Venipuncture / Unknown 01/18/2025 1:33 AM EDT 01/18/2025 1:45 AM EDT us Zeb Gonzalez MD BLOOD BANK TEST ORDERABLES Sintia l Result Performing Organization Address City/[facility]/ZIP Co de Phone Number [facility]
[address] [place] [address], [place] [phone] * (ABNORMAL) Comprehensive Metabolic Panel (01/17/2025 11:50 PM EDT) Glucose 81 65 - 99 mg/dL 01/18/2025 12:36 AM EDT [facility] BUN 4.3(L) 6.0 - 20.0 mg/dL 01/18/2025 12:36 AM EDT [facility] Creatinine 0.46(L) 0.57 - [...] >60.0 mL/min/1.7 3 01/18/2025 12:36 AM EDT [facility] Blood Venipuncture / Unknown 01/17/2025 11:50 PM EDT 01/18/2025 12:02 AM EDT Narrative [facility] - 01/18/2025 12:36 AM [...] ORDERABLES Final Resu lt Performing Organization Address City/[facility]/ZIP Co de Phone Number [facility]
[address] [place] [address], [place] [phone] * Uric Acid (01/17/2025 11:50 PM EDT) Uric Acid 4.6 2.4 - 5.7 mg/dL 01/18/2025 12:32 AM EDT [facility] Comment:Falsely depressed re sults may occur on samples drawn from patients receiving N-Acetylcysteine (NAC) or Metamizole. Blood Venipuncture / Unknown 01/17/2025 11:50 PM EDT 01/18/2025 12:02 AM EDT us Zeb Gonzalez MD LAB BLOOD ORDERABLES Final Resu lt [facility]
[address] [place] [address], [place] [phone] * Lactate Dehydrogenase (01/17/2025 11:50 PM EDT) Pathologist [facility] LDH 210 135 - 214 U/L 01/18/2025 12:37 AM EDT [facility] Comment:Specimen hemolyzed. Results may be affected. Blood Venipuncture / Unknown 01/17/2025 11:50 PM EDT 01/18/2025 12:02 AM EDT us Zeb Gonzalez MD LAB BLOOD ORDERABLES Final Resu lt [facility]
[address] [place] [address], * Type & Screen (01/17/2025 11:50 PM EDT) Pathologist [facility] ABO Type O 01/18/2025 1:10 AM EDT [facility] RH type Positive 01/18/2025 1:10 AM EDT [facility] Antibody Screen Negative 01/18/2025 1:10 AM EDT [facility] T&S Expiration Date 01/20/2025 11:59:59 PM 01/18/2025 1:10 AM EDT [facility] Blood Venipuncture / Unknown 01/17/2025 11:50 PM EDT 01/18/2025 12:30 AM EDT us Zeb Gonzalez MD BLOOD BANK TEST ORDERABLES Edit ed Result - Final [facility]
[address] [place] [address], * Treponema pallidum AB w/Reflex RPR (01/17/2025 11:50 PM EDT) Pathologist [facility] Treponemal AB Total Non-Reacti ve Non-React chip 01/18/2025 12:27 PM EDT [facility] Blood Venipuncture / Unknown 01/17/2025 11:50 PM EDT 01/18/2025 12:02 AM EDT Narrative [facility] - 01/18/2025 12:27 PM EDT Reactive results will reflex RPR testing. Zeb Gonzalez MD LAB BLOOD ORDERABLES Final Resu lt [facility]
[address] [place] [address], * (ABNORMAL) CBC (No Diff) (01/17/2025 11:50 PM EDT) WBC 11.12(H) 3.40 - 10.80 10*3/mm3 01/18/2025 12:04 AM EDT [facility] RBC 3.83 3.77 - 5.28 10*6/mm3 01/18/2025 12:04 AM EDT [facility] Hemoglobin 11.8(L) 12.0 - 15.9 g/dL 01/18/2025 12:04 AM EDT [facility] Hematocrit 33.6(L) 34.0 - 46.6 % 01/18/2025 12:04 AM EDT [facility] MCV 87.7 79.0 - 97.0 fL 01/18/2025 12:04 AM EDT [facility] MCH 30.8 26.6 - 33.0 pg 01/18/2025 12:04 AM EDT [facility] MCHC 35.1 31.5 - 35.7 g/dL 01/18/2025 12:04 AM EDT [facility] RDW 12.9 12.3 - 15.4 % 01/18/2025 12:04 AM EDT [facility] RDW-SD 41.0 37.0 - 54.0 fl 01/18/2025 12:04 AM EDT [facility] MPV 10.0 6.0 - 12.0 fL 01/18/2025 12:04 AM EDT [facility] Platelets 274 140 - 450 10*3/mm3 01/18/2025 12:04 AM EDT [facility] Blood Venipuncture / Unknown 01/17/2025 11:50 PM EDT 01/18/2025 12:01 AM EDT Zeb Gonzalez MD LAB BLOOD ORDERABLES Final Resu lt [facility]
[address] [place] [address], * LABS SCANNED (01/17/2025) [facility] LAB BLOOD ORDERABLES Final Re sult * Telemetry Scan (01/17/2025) [facility] Onbase ECG ORDERABLES Final Result documented [...] Given 01/19/2025 8:15 AM EDT 81 mg zmqvsnvgtz-znnoetuzeursx-tlnifhuy (FIORICET, ESGIC) 50-325-40 MG per tablet 2 [...] provider. 0011 (Given - Provider: Atiya Hicks RN)826 (Given - Provider: Flakito Tineo RN)1530 (Given - Provider: Flakito Tineo RN)2117 (Given - Provider: Lana Ruiz, GREGG) 814 (Given - Provider: Pepito Schmitz, GREGG)1533 (Given - Provider: Pepito Schmitz, GREGG)2004 (Given - Provider: Felecia Wiseman, GREGG) 815 (Given - Provider: Flakito Tineo RN) NIFEdipine [...] = Pain Score of 7-10, CPOT 5-8 0565 (Given - Provider: Atiya Hicks, GREGG)5052 (Given - Provider: Flakito Tineo, GREGG) 0542 (Given - Provider: Felecia Wiseman, GREGG) albuterol [...] NPO. documented in this encounter Care Teams New Client Banking Services Clerk Relationship Specialty Start Date End Date Destiny Seymour PA [address] [place] [address] [facility] [address] [place] [address] PCP - General Physician Research And Development Engineer 09/14/22 documented as of this encounter
[2025-03-05 09:31] LABS: Coronavirus 19, PCR Not Detected (NotDetected); Influenza A, PCR Not Detected (NotDetected); Influenza B, PCR Not Detected (NotDetected)
--- OUTSIDE RECORDS SUMMARY | 2025-03-05 09:44 | XMS_ITS | Encounter Summary ---
Author Organization [facility] Address [address] [place] [address] Care Team Providers Care Collar Setter Name Role Phone Destiny Seymour Primary Care Provider [phone] Encounter Details Date Type Department Care Team (Latest Contact Info) Description 01/17/2025 Travel 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 Tobacco Use Types Packs/Day Years Used Date Smoking Tobacco: Never Passive Smoke Exposure: Past Smokeless Tobacco: Never Alcohol Use Standard Drinks/Week Comments Not Currently 2 (1 standard drink = 0.6 oz pur e alcohol) socially [facility] Utilities Answer Date Recorded In the past 12 months has [employer] electric, gas, oil, or water company threatened [...] heating? Not hard at all 01/17/2025 [facility] [place] of Occupat ional Health - Occupational Stress [...] GED or equivalent No 01/17/2025 Preferred Language Gabonese 01/17/2025 PHQ-2 Answer Date Recorded Patient Health [...] 11:07 PM HARLANT Atiya Gordon RN * [place] Suicide Severity Rating Scale (Screener/Recent Self-Report) Question [...] on filedocumented in this encounter Care Teams Collar Setter Relationship Specialty Start Date End Date Destiny Seymour PA [address] [place] [address] [facility] [address] [place] [address] PCP - General Physician Vice President Tax 09/14/22 documented as of this encounter
--- OUTSIDE RECORDS SUMMARY | 2025-03-05 09:44 | XMS_ITS | Clinical Summary ---
Author Organization [facility] Address [address] [place] [address] Care Team Providers Care Inspector Balance Truing Name Role Phone Destiny Seymour Primary Care Provider [phone] Allergies Active Allergy Reactions Criticality Noted Date Comments Erythromycin Hives,Rash High 09/14/2022 Medications albuterol sulfate HFA 108 (90 Base) MCG/ACT inhaler Inhale 2 puffs Every 6 (Six) Hours As Needed for Shortness of Air. 5 Active MAGnesium-Oxide 400 (240 Mg) MG tablet Take 1 tablet by mouth Daily. 5 Active ondansetron ODT (ZOFRAN-ODT) 4 MG [...] 3 (Three) Times a Day. 90 tablet 5 Active Active Problems Problem Noted Date [...] 01/20/2025 12:12 PM EDT Hospital Encounter [facility] [address] [place] [address] Zeb Gonzalez MD Discharge Disposition: Home or Self Care 01/17/2025 Travel 12/12/2024 1:45 PM EDT Office Visit [facility] [address] [place] [id number] John Mendoza MD Chronic hypertension complicating or reason for care during , second trimester (Primary Dx) 12/12/2024 1:26 PM EDT - 12/12/2024 11:59 PM EDT Hospital Encounter [facility] [address] [place] [address] John Mendoza MD Paroxysmal SVT (supraventricular tachycardia); [...] = 0.6 oz pur e alcohol) socially [facility] Utilities Answer Date Recorded In the past 12 months has [employer] electric, gas, oil, or water [employer] threatened to shut off services in your [...] and heating? Not hard at all 01/17/2025 [facility] [place] [facility] Occupat ional Health - Occupational Stress [...] GED or equivalent No 01/17/2025 Preferred Language Bahamian 01/17/2025 PHQ-2 Answer Date Recorded Patient Health [...] Procedure Name Priority Date/Time Associated Diagnosis Comments [facility] STAT 01/20/2025 10:43 [...] - TELEMETRY 01/17/2025 SCANNED - LABS 01/17/2025 [facility] Routine 12/12/2024 2:10 PM EDT Paroxysmal SVT (supraventricular tachycardia) Chronic hypertension complicating or reason for care during , second trimester from Last 3 Months Results * [facility] (01/20/2025 10:43 AM EDT) Only the most recent of2 resultswithin the time period is included. Anatomical Region Laterality Modality Ultrasound 01/20/2025 10:4 2 AM EDT Narrative 01/20/2025 11:40 AM EDT PAT NAME: FILI PHILLIP MED REC#: [id number] DA: 2000 PAT GEND: F PAT TYPE: I EXAM MYRON: [id number] REF PHYS PEPITO BUITRAGO Comparison Studies The [...] EFW (oz) 1 oz EFW by: Hadlock ([id number]) Extended Cav. septi pel. tr 5.1 mm Enrollment Services Dean 5.1 mm Head / Face / Neck [...] Normal Heart / Thorax 3-vessel view: Normal 5-cvorxb-gqlhjbt view: normal Stomach: Appears normal Kidneys: Appears normal Bladder: Appears normal Gender: female Wants to know gender: yes Doppler Arterial Umbilical A PI 0.82 51% Nasrene Umbilical A RI 0.58 55% Nasreen Umbilical [...] Recommend delivery at 37wks. Coding ====== Description: 62539-04 Follow Up Ultrasound Description: 05024-15 BPP without NST Description: 72393-42 Doppler Umbilical Artery Teamsite Developer: Delmy Xiong RDMS Physician: Akanksha Moore MD Electronically signed by: Akanksha Moore MD at: 11:27 Procedure Note Akanksha Moore MD - 01/21/2025 PAT NAME: FILI PHILLIP MED REC#: [id number] DA: [id number] PAT GEND: F PAT TYPE: I EXAM MYRON: [id number] REF PHYS PEPITO BUITRAGO Comparison Studies The findings of this study are compared to the prior ultrasound studydated 12/12/24 Patient Status Inpatient Indication ======== CHTN. Rheumatoid arthritis. Maternal chiari malformation. Hx SVT withablation 2022. Vapes. Obesity BMI 34. Maternal Assessment Pjnvrd062 cm Xyjuky95 kg Weight (lb)211 lb BMI34.32 kg/m Method ======= Transabdominal ultrasound examination. View: Adequate view ========= Beltran . Number of fetuses: 1 Dating ====== Method of dating:based on stated TIFFANY GA by prior [id number] w + 1 d TIFFANY by prior assessment:02/16/2025 Ultrasound examination on:01/20/2025 GA by U/S based upon:AC, BPD, Femur, HC GA by U/S36 w + 1 d TIFFANY by U/S:02/16/2025 Previous dating:based on stated TIFFANY, selected on 12/12/2024 Agreed TIFFANY of previous datin02/16/2025 Assigned:based on stated TIFFANY, selected on 01/20/2025 Assigned GA36 w + 1 d Assigned TIFFANY:02/16/2025 [id number] d Biometry Standard BPD89.1 mm 36w 0d 57% Hadlock YPH370.1 mm 38w 4d 81% Ermelinda HC330.1 mm 37w 4d 55% Hadlock AC312.4 mm 35w 1d 32% Hadlock Femur70.2 mm 36w 0d 42% Hadlock HC / AC1.06 EFW2,755 g 35w 5d 41% Hadlock EFW (lb)6 lb EFW (oz)1 oz EFW by:Hadlock ([id number]-FL) Extended Cav. septi pel. tr5.1 mm Vp5.1 mm Head / Face / Neck Cephalic index0.79 23% Nicolaides Extremities / Bony Struc FL / BPD0.79 FL / HC0.21 FL / AC0.22 Other Structures EJO310 bpm General Evaluation Cardiac activity present. FHR [...] LVOT view:Normal Heart / Thorax 3-vessel view:Normal 8-kxeoyo-wshwgpj view:normal Stomach:Appears normal Kidneys:Appears normal Bladder:Appears normal [...] labs. Recommend delivery at 37wks. Coding ====== Description:26771-62 Follow Up Ultrasound Description:31354-24 BPP without NST Description:30053-91 Doppler Umbilical Artery Teamsite Developer: Delmy Xiong RDMS Physician: Akanksha Moore MD Electronically signed by: Akanksha Moore MD at: 11:27 us Neymar Winters MD IMG US ORDERABLES Edited Resul t - Final * Preeclampsia Panel (01/19/2025 9:10 AM EDT) Alkaline Phosphatase 94 39 - 117 U/L 01/19/2025 10:11 AM EDT [facility] ALT (SGPT) 8 1 - 33 U/L 01/19/2025 10:11 AM EDT [facility] AST (SGOT) 11 1 - 32 U/L 01/19/2025 10:11 AM EDT [facility] Creatinine 0.58 0.57 - 1.00 mg/dL 01/19/2025 10:11 AM EDT [facility] Total Bilirubin 0.2 0.0 - 1.2 mg/dL 01/19/2025 10:11 AM EDT [facility] LDH 148 135 - 214 U/L 01/19/2025 10:11 AM EDT [facility] Uric Acid 5.2 2.4 - 5.7 mg/dL 01/19/2025 10:11 AM EDT [facility] Blood Venipuncture / Unknown 01/19/2025 9:10 AM EDT 01/19/2025 9:39 AM EDT Jeffery Cruz DO LAB BLOOD ORDERABLES Final Result [facility]
[address] [place] [address], * (ABNORMAL) CBC (No Diff) (01/19/2025 9:10 AM EDT) Only the most recent of2 resultswithin the time period is included. [facility] WBC 7.71 3.40 - 10.80 10*3/mm3 01/19/2025 10:10 AM EDT [facility] RBC 3.25(L) 3.77 - 5.28 10*6/mm3 01/19/2025 10:10 AM EDT [facility] Hemoglobin 9.8(L) 12.0 - 15.9 g/dL 01/19/2025 10:10 AM EDT [facility] Hematocrit 29.5(L) 34.0 - 46.6 % 01/19/2025 10:10 AM EDT [facility] MCV 90.8 79.0 - 97.0 fL 01/19/2025 10:10 AM EDT [facility] MCH 30.2 26.6 - 33.0 pg 01/19/2025 10:10 AM EDT [facility] MCHC 33.2 31.5 - 35.7 g/dL 01/19/2025 10:10 AM EDT [facility] RDW 13.2 12.3 - 15.4 % 01/19/2025 10:10 AM EDT [facility] RDW-SD 43.2 37.0 - 54.0 fl 01/19/2025 10:10 AM EDT [facility] MPV 10.0 6.0 - 12.0 fL 01/19/2025 10:10 AM EDT [facility] Platelets 216 140 - 450 10*3/mm3 01/19/2025 10:10 AM EDT [facility] Blood Venipuncture / Unknown 01/19/2025 9:10 AM EDT 01/19/2025 9:39 AM EDT Jeffery Cruz DO LAB BLOOD ORDERABLES Final Result [facility]
[address] [place] [address], * (ABNORMAL) Protein, Urine, 24 Hour - Urine, Clean Catch (01/19/2025 7:36 AM EDT) Protein, 24H Urine 262.2(H) 0.0 - 150.0 mg/24hours 01/19/2025 8:10 AM EDT [facility] 24H Urine Volume 5,350 mL 01/19/2025 8:10 AM EDT [facility] Time (Hours) 24 hrs 01/19/2025 8:10 AM EDT [facility] 24 Hour Urine Urine specimen obtained by clean catch procedure / Unknown 01/19/2025 7:36 AM EDT 01/19/2025 7:36 AM EDT Narrative [facility] - 01/19/2025 8:10 AM EDT Reference ranges are based on a 24 hour period, interperet results accordingly. us Zeb Gonzalez MD URINE ORDERABLES Final Result Performing Organization Address [facility] Co de Phone Number [facility]
[address] [place] [address], [place] [phone] * ABO RH Specimen Verification (01/18/2025 1:33 AM EDT) ABO Type O 01/18/2025 1:42 PM EDT [facility] RH type Positive 01/18/2025 1:42 PM EDT [facility] Blood Venipuncture / Unknown 01/18/2025 1:33 AM EDT 01/18/2025 1:45 AM EDT us Zeb Gonzalez MD BLOOD BANK TEST ORDERABLES Sintia l Result Performing Organization Address [facility] [[email or web address]] de Phone Number [facility]
[address] [place] [address], [place] [phone] * Treponema pallidum AB w/Reflex RPR (01/17/2025 11:50 PM EDT) Treponemal AB Total Non-Reacti ve Non-React chip 01/18/2025 12:27 PM EDT [facility] Blood Venipuncture / Unknown 01/17/2025 11:50 PM EDT 01/18/2025 12:02 AM EDT Narrative [facility] - 01/18/2025 12:27 PM EDT Reactive results will reflex RPR testing. us Zeb Gonzalez MD LAB BLOOD ORDERABLES Final Resu lt Performing Organization Address [facility]/ZIP Co de Phone Number [facility]
[address] [place] [address], [place] [phone] * Type & Screen (01/17/2025 11:50 PM EDT) ABO Type O 01/18/2025 1:10 AM EDT [facility] RH type Positive 01/18/2025 1:10 AM EDT [facility] Antibody Screen Negative 01/18/2025 1:10 AM EDT [facility] T&S Expiration Date 01/20/2025 11:59:59 PM 01/18/2025 1:10 AM EDT [facility] Blood Venipuncture / Unknown 01/17/2025 11:50 PM EDT 01/18/2025 12:30 AM EDT us Zeb Gonzalez MD BLOOD BANK TEST ORDERABLES Edit ed Result - Final Performing Organization Address [facility] Co de Phone Number [facility]
[address] [place] [address], [place] [phone] * Uric Acid (01/17/2025 11:50 PM EDT) Uric Acid 4.6 2.4 - 5.7 mg/dL 01/18/2025 12:32 AM EDT [facility] Comment:Falsely depressed re sults may occur on samples drawn from patients receiving N-Acetylcysteine (NAC) or Metamizole. Blood Venipuncture / Unknown 01/17/2025 11:50 PM EDT 01/18/2025 12:02 AM EDT us Zeb Gonzalez MD LAB BLOOD ORDERABLES Final Resu lt Performing Organization Address City/[facility]/ZIP Co de Phone Number [facility]
[address] [place] [address], [place] [phone] * Lactate Dehydrogenase (01/17/2025 11:50 PM EDT) LDH 210 135 - 214 U/L 01/18/2025 12:37 AM EDT [facility] Comment:Specimen hemolyzed. Results may be affected. Blood Venipuncture / Unknown 01/17/2025 11:50 PM EDT 01/18/2025 12:02 AM EDT Zeb Gonzalez MD LAB BLOOD ORDERABLES Final Resu lt [facility]
[address] [place] [address], * (ABNORMAL) Comprehensive Metabolic Panel (01/17/2025 11:50 PM EDT) Pathologist [facility] Glucose 81 65 - 99 mg/dL 01/18/2025 12:36 AM EDT [facility] BUN 4.3(L) 6.0 - 20.0 mg/dL 01/18/2025 12:36 AM EDT [facility] Creatinine 0.46(L) 0.57 - 1.00 mg/dL 01/18/2025 12:36 AM EDT [facility] Sodium 137 136 - 145 mmol/L 01/18/2025 12:36 AM EDT [facility] Potassium 4.0 3.5 - 5.2 mmol/L 01/18/2025 12:36 AM EDT [facility] Comment:Specimen hemolyzed. Result may be falsely elevated. Chloride 105 98 - 107 mmol/L 01/18/2025 12:36 AM EDT [facility] CO2 17.5(L) 22.0 - 29.0 mmol/L 01/18/2025 12:36 AM EDT [facility] Calcium 8.3(L) 8.6 - 10.5 mg/dL 01/18/2025 12:36 AM EDT [facility] Total Protein 6.5 6.0 - 8.5 g/dL 01/18/2025 12:36 AM [facility] Albumin 3.6 3.5 - 5.2 g/dL 01/18/2025 12:36 AM [facility] ALT (SGPT) 10 1 - 33 U/L 01/18/2025 12:36 AM [facility] AST (SGOT) 19 1 - 32 U/L 01/18/2025 12:36 AM [facility] Alkaline Phosphatase 100 39 - 117 U/L 01/18/2025 12:36 AM [facility] Total Bilirubin 0.3 0.0 - 1.2 mg/dL 01/18/2025 12:36 AM [facility] Globulin 2.9 gm/dL 01/18/2025 12:36 AM [facility] Comment:Calculated Result A/G Ratio 1.2 g/dL 01/18/2025 12:36 AM [facility] BUN/Creatinine Ratio 9.3 7.0 - 25.0 01/18/2025 12:36 AM [facility] Anion Gap 14.5 5.0 - 15.0 mmol/L 01/18/2025 12:36 AM [facility] eGFR 138.1 >60.0 mL/min/1.7 3 01/18/2025 12:36 AM [facility] Blood Venipuncture / Unknown 01/17/2025 11:50 PM EDT 01/18/2025 12:02 AM [facility] - 01/18/2025 12:36 AM EDT GFR [...] LAB BLOOD ORDERABLES Final Resu lt [facility]
[address] [place] [address], * Telemetry Scan (01/17/2025) [facility] Onbase ECG ORDERABLES Final Result * LABS SCANNED (01/17/2025) [facility] LAB BLOOD ORDERABLES Final Re sult from Last 3 Months Insurance [place] [id number] [employer] PPO Advance Directives * CPR (Attempt to Resuscitate) (Latest Code Status on File) Date Activated Date Inactivated Comments 01/17/2025 11:22 PM 01/20/2025 2:14 PM Question Answer Comments Code Status (Patient has no pulse and is not breathing): CPR (Attempt to Resuscitate) Medical Interventions (Patie nt has pulse or is breathing): Full Support Level Of Support Discussed With: Patient Care Teams Inspector Balance Truing Relationship Specialty Start Date End Date Destiny Seymour PA [address] [place] [address] PCP - General Physician Meteorologist Liaison 09/14/22
--- OUTSIDE RECORDS SUMMARY | 2025-03-05 09:44 | XMS_ITS | Clinical Summary ---
Author Organization [facility] [place] Address [address] [place] [address] Phone Care Team Providers Care Item Processing Clerk Name Role Phone Unavailable Primary Care Provider Unavailabl e Allergies No known active allergies Active Problems Problem Noted Date Diagnosed Date S/P RF ablation operation for arrhythmia 023 Overview (03/02/2023): EPS, SVT Ablation 11/25/22-Dr. Demetrio Pearson @ [facility] SVT (supraventricular tachycardia) Surgical History Surgery Date Site/Laterality Comments CYST REMOVAL 08/31/2020 - 09/30/2020 Right R Hand Cyst Removal ABLATION OF DYSRHYTHMIC FOCUS 11/25/2022 EPS, SVT Ablation-Dr. Demetrio Pearson @ [facility] Medical History Medical History Date Comments [...] COVID-19 Vaccine ( - 2023-2 5 season) 2025 Influenza Vaccine (#1) 2025 Pneumococcal Vaccine 0-49 Aged Out No longer eligible based on patient's age to complete this topic Insurance [employer] POS
--- OUTSIDE RECORDS SUMMARY | 2025-03-05 09:45 | XMS_ITS | Clinical Summary ---
Author Organization Healthcare Address [address] [place] [address] Care Team Providers Care Supervisor Home Economics Name Role Phone Leah Jasso IRVNI Primary Care Provider [phone] Family History Medical History Relation Name Comments [...] 19+ 3-dose series) 2020 UKY-Pap Smear 2022 [id number] Vaccine (1 - 20 24-25 season) 2024 [...] age to complete this topic Insurance [facility] [place] [address] KENRICK Care Teams Supervisor Home Economics Relationship Specialty Start Date End Date Leah Jasso APRN [address] [facility] [address] [place] [address] PCP - General 11/13/20
== END 2025-03-05 23:59 | disposition home or self-care (01) ==
LOC: LAB 09:28
PROVIDERS: PCP Physician Assistant; Visit Provider Nurse Practitioner Family
DX: J06.9 Acute upper respiratory infection, unspecified (principal)
CPT/HCPCS: 36415; 87631

== ENCOUNTER 2025-04-14 09:00 | Outpatient (CLI) | payer BC, OTHER, SELFPAY ==
--- NOTE | 2025-04-14 09:00 | XR_ITS ---
FINAL REPORT CLINICAL HISTORY: right wrist ganglion cyst FINDINGS: AP, oblique, and lateral views of the right wrist were obtained. There is no prior exam for comparison. There is no acute fracture or dislocation. The joint spaces are preserved. The soft tissues are normal. IMPRESSION: No acute osseous abnormality of the right wrist. Reviewed, Interpreted and Dictated by Ashely Ortega MD Transcribed by Leah Camacho Authenticated and . [facility]
--- OUTSIDE RECORDS SUMMARY | 2025-04-14 09:07 | XMS_ITS | Clinical Summary ---
Author Organization [facility] [place] Address [address] [place] [address] Phone Care Team Providers Care Air Traffic Control Operator Name Role Phone Unavailable Primary Care [...] 11/25/2022 EPS, SVT Ablation-Dr. Demetrio Pearson @ [facility] Medical History [...] on file Sexual Orientation Not on file Plan of Treatment Health Maintenance Due Date [...]
--- OUTSIDE RECORDS SUMMARY | 2025-04-14 09:07 | XMS_ITS | Clinical Summary ---
Author Organization [facility] Address [address] [place] [address] Care Team Providers Care Infant Lead Teacher Name Role Phone Destiny Seymour Primary Care Provider [phone] Allergies Active Allergy Reactions Criticality Noted Date [...] ablation in 2022. Currently follows with cardiology. Encounters Date Type Department Care Team Description 01/17/2025 10:36 PM EDT - 01/20/2025 12:12 PM EDT Hospital Encounter [facility] [address] [place] [address] Zeb Gonzalez MD Discharge Disposition: Home or Self Care 01/17/2025 Travel from Last 3 Months Family History [...] = 0.6 oz pur e alcohol) socially [facility] [employer] Answer Date Recorded In the past 12 months has [employer] electric, gas, oil, or water [place] threatened to shut off services in your [...] and heating? Not hard at all 01/17/2025 [place] [facility] Occupat ional Health - Occupational Stress [...] GED or equivalent No 01/17/2025 Preferred Language British 01/17/2025 PHQ-2 Answer Date Recorded Patient Health Questionnaire-2 Score 3 01/17/2025 Comments No Sex and Gender Information Value Date Recorded [...] CHLAMYDIA SCREENING 07/12/2022 HEPATITIS C SCREENING 07/12/2022 INFLUENZA VACCINE 01/31/2025 07/09/2024 TDAP/TD VACCINES (2 - Td or Tdap) 07/09/2034 025 Pneumococcal Vaccine 0-49 Aged Out No longer eligible based on patient's age to complete this topic Procedures Procedure Name Priority Date/Time Associated Diagnosis Comments PENDING SALE TO [facility] STAT 01/20/2025 10:43 AM EDT [...] - TELEMETRY 01/17/2025 SCANNED - LABS 01/17/2025 from Last 3 Months Results * [facility] (01/20/2025 10:43 AM EDT) Anatomical Region Laterality Modality Ultrasound 01/20/2025 10:4 2 AM EDT Narrative 01/20/2025 11:40 AM EDT PAT NAME: FILI PHILLIP MED REC#: [id number] DA: [id number] PAT GEND: F PAT TYPE: I EXAM MYRON: [id number] REF PHYS PEPITO BUITRAGO Comparison Studies The [...] EFW (oz) 1 oz EFW by: Hadlock ([id number]) Extended Cav. septi pel. tr 5.1 mm Billing Representative 5.1 mm Head / Face / Neck [...] Normal Heart / Thorax 3-vessel view: Normal 1-kihknc-gchbyxw view: normal Stomach: Appears normal Kidneys: Appears [...] Recommend delivery at 37wks. Coding ====== Description: 27966-61 Follow Up Ultrasound Description: 18812-33 BPP without NST Description: 40492-82 Doppler Umbilical Artery Cad Administrator: Delmy Xiong RDMS Physician: Akanksha Moore MD Electronically signed by: Akanksha Moore MD at: 11:27 Procedure Note Akanksha Moore MD - 01/21/2025 PAT NAME: FILI PHILLIP MED REC#: [id number] DA: 2000 PAT GEND: F PAT TYPE: I EXAM MYRON: [id number] REF PHYS PEPITO BUITRAGO Comparison Studies The findings of this study are compared to the prior ultrasound studydated 12/12/24 Patient Status Inpatient Indication ======== CHTN. Rheumatoid arthritis. Maternal chiari malformation. Hx SVT withablation 2022. Vapes. Obesity BMI 34. Maternal Assessment Zfvnql490 cm Wfbagw71 kg Weight (lb)211 lb BMI34.32 kg/m Method ======= Transabdominal ultrasound examination. View: Adequate view ========= Beltran . Number of fetuses: 1 Dating ====== Method of dating:based on stated TIFFANY GA by prior [id number] w + 1 d TIFFANY by prior assessment:02/16/2025 Ultrasound examination on:01/20/2025 GA by U/S based upon:AC, BPD, Femur, HC GA by U/S36 w + 1 d TIFFANY by U/S:02/16/2025 Previous dating:based on stated TIFFANY, selected on 12/12/2024 Agreed TIFFANY of previous datin02/16/2025 Assigned:based on stated TIFFANY, selected on 01/20/2025 Assigned GA36 w + 1 d Assigned TIFFANY:02/16/2025 [id number] d Biometry Standard BPD89.1 mm 36w 0d 57% Hadlock DSL633.1 mm 38w 4d 81% Ermelinda HC330.1 mm 37w 4d 55% Hadlock AC312.4 mm 35w 1d 32% Hadlock Femur70.2 mm 36w 0d 42% Hadlock HC / AC1.06 EFW2,755 g 35w 5d 41% Hadlock EFW (lb)6 lb EFW (oz)1 oz EFW by:Hadlock ([id number]) Extended Cav. septi pel. tr5.1 mm Vp5.1 mm Head / Face / Neck Cephalic index0.79 23% Nicolaides Extremities / Bony Struc FL / BPD0.79 FL / HC0.21 FL / AC0.22 Other Structures [id number] bpm General Evaluation Cardiac activity present. FHR [...] LVOT view:Normal Heart / Thorax 3-vessel view:Normal 8-ykymzw-pfsesps view:normal Stomach:Appears normal Kidneys:Appears normal Bladder:Appears normal [...] labs. Recommend delivery at 37wks. Coding ====== Description:92326-43 Follow Up Ultrasound Description:57768-15 BPP without NST Description:39688-69 Doppler Umbilical Artery Cad Administrator: Delmy Xiong RDMS Physician: Akanksha Moore MD Electronically signed by: Akanksha Moore MD at: 11:27 us Neymar Winters MD IMG US ORDERABLES Edited Resul t - Final * Preeclampsia Panel (01/19/2025 9:10 AM EDT) Alkaline Phosphatase 94 39 - 117 U/L 01/19/2025 10:11 AM EDT [facility] ALT (SGPT) 8 1 - 33 U/L 01/19/2025 10:11 AM EDT [facility] AST (SGOT) 11 1 - 32 U/L 01/19/2025 10:11 AM EDT [facility] Creatinine 0.58 0.57 - 1.00 mg/dL 01/19/2025 10:11 AM EDT [facility] Total Bilirubin 0.2 0.0 - 1.2 mg/dL 01/19/2025 10:11 AM EDT [facility] LDH 148 135 - 214 U/L 01/19/2025 10:11 AM EDT [facility] Uric Acid 5.2 2.4 - 5.7 mg/dL 01/19/2025 10:11 AM EDT [facility] Blood Venipuncture / Unknown 01/19/2025 9:10 AM EDT 01/19/2025 9:39 AM EDT us Jeffery Cruz DO LAB BLOOD ORDERABLES Final Result [facility]
[address] [place] [address], * (ABNORMAL) CBC (No Diff) (01/19/2025 9:10 AM EDT) Only the most recent of2 resultswithin the time period is included. WBC 7.71 3.40 - 10.80 10*3/mm3 01/19/2025 10:10 AM EDT [facility] RBC 3.25(L) 3.77 - 5.28 10*6/mm3 01/19/2025 10:10 AM EDT [facility] Hemoglobin 9.8(L) 12.0 - 15.9 g/dL 01/19/2025 10:10 AM EDT [facility] Hematocrit 29.5(L) 34.0 - 46.6 % 01/19/2025 10:10 AM EDT [facility] MCV 90.8 79.0 - 97.0 fL 01/19/2025 10:10 AM EDT [facility] MCH 30.2 26.6 - 33.0 pg 01/19/2025 10:10 AM EDT [facility] MCHC 33.2 31.5 - 35.7 g/dL 01/19/2025 10:10 AM EDT [facility] RDW 13.2 12.3 - 15.4 % 01/19/2025 10:10 AM EDT [facility] RDW-SD 43.2 37.0 - 54.0 fl 01/19/2025 10:10 AM EDT [facility] MPV 10.0 6.0 - 12.0 fL 01/19/2025 10:10 AM EDT [facility] Platelets 216 140 - 450 10*3/mm3 01/19/2025 10:10 AM EDT [facility] Blood Venipuncture / Unknown 01/19/2025 9:10 AM EDT 01/19/2025 9:39 AM EDT Jeffery Cruz DO LAB BLOOD ORDERABLES Final Result [facility]
[address] [place] [address], [place] [phone] * (ABNORMAL) Protein, Urine, 24 Hour - Urine, Clean Catch (01/19/2025 7:36 AM EDT) Protein, 24H Urine 262.2(H) 0.0 - 150.0 mg/24hours 01/19/2025 8:10 AM EDT [facility] 24H Urine Volume 5,350 mL 01/19/2025 8:10 AM EDT [facility] Time (Hours) 24 hrs 01/19/2025 8:10 AM EDT [facility] 24 Hour Urine Urine specimen obtained by clean catch procedure / Unknown 01/19/2025 7:36 AM EDT 01/19/2025 7:36 AM EDT Narrative [facility] - 01/19/2025 8:10 AM EDT Reference ranges are based on a 24 hour period, interperet results accordingly. us Zeb Gonzalez MD URINE ORDERABLES Final Result Performing Organization Address [facility] de Phone Number [facility]
[address] [place] [address], [place] [phone] * ABO RH Specimen Verification (01/18/2025 1:33 AM EDT) ABO Type O 01/18/2025 1:42 PM EDT [facility] RH type Positive 01/18/2025 1:42 PM EDT [facility] Blood Venipuncture / Unknown 01/18/2025 1:33 AM EDT 01/18/2025 1:45 AM EDT us Zeb Gonzalez MD BLOOD BANK TEST ORDERABLES Sintia l Result Performing Organization Address [facility] Co de Phone Number [facility]
[address] [place] [address], [place] [phone] * Treponema pallidum AB w/Reflex RPR (01/17/2025 11:50 PM EDT) Treponemal AB Total Non-Reacti ve Non-React chip 01/18/2025 12:27 PM EDT [facility] Blood Venipuncture / Unknown 01/17/2025 11:50 PM EDT 01/18/2025 12:02 AM EDT Narrative [facility] - 01/18/2025 12:27 PM EDT Reactive results will reflex RPR testing. us Zeb Gonzalez MD LAB BLOOD ORDERABLES Final Resu lt [facility]
[address] [place] [address], * Type & Screen (01/17/2025 11:50 PM EDT) ABO Type O 01/18/2025 1:10 AM EDT [facility] RH type Positive 01/18/2025 1:10 AM EDT [facility] Antibody Screen Negative 01/18/2025 1:10 AM EDT [facility] T&S Expiration Date 01/20/2025 11:59:59 PM 01/18/2025 1:10 AM EDT [facility] Blood Venipuncture / Unknown 01/17/2025 11:50 PM EDT 01/18/2025 12:30 AM EDT us Zeb Gonzalez MD BLOOD BANK TEST ORDERABLES Edit ed Result - Final [facility]
[address] [place] [address], [place] [phone] * Uric Acid (01/17/2025 11:50 PM EDT) Pathologist [facility] Uric Acid 4.6 2.4 - 5.7 mg/dL 01/18/2025 12:32 AM EDT [facility] Comment:Falsely depressed re sults may occur on samples drawn from patients receiving N-Acetylcysteine (NAC) or Metamizole. Blood Venipuncture / Unknown 01/17/2025 11:50 PM EDT 01/18/2025 12:02 AM EDT us Zeb Gonzalez MD LAB BLOOD ORDERABLES Final Resu lt Performing Organization Address [facility] Co de Phone Number [facility]
[address] [place] [address], [place] [phone] * Lactate Dehydrogenase (01/17/2025 11:50 PM EDT) [facility] LDH 210 135 - 214 U/L 01/18/2025 12:37 AM EDT [facility] Comment:Specimen hemolyzed. Results may be affected. Blood Venipuncture / Unknown 01/17/2025 11:50 PM EDT 01/18/2025 12:02 AM EDT Zeb Gonzalez MD LAB BLOOD ORDERABLES Final Resu lt Performing Organization Address [facility] Co de Phone Number [facility]
[address] [place] [address], [place] [phone] * (ABNORMAL) Comprehensive Metabolic Panel (01/17/2025 11:50 PM EDT) [facility] Glucose 81 65 - 99 mg/dL 01/18/2025 12:36 AM EDT [facility] BUN 4.3(L) 6.0 - 20.0 mg/dL 01/18/2025 12:36 AM EDT [facility] Creatinine 0.46(L) 0.57 - 1.00 mg/dL 01/18/2025 12:36 AM EDT [facility] Sodium 137 136 - 145 mmol/L 01/18/2025 12:36 AM [facility] Potassium 4.0 3.5 - 5.2 mmol/L 01/18/2025 12:36 AM [facility] Comment:Specimen hemolyzed. Result may be falsely elevated. Chloride 105 98 - 107 mmol/L 01/18/2025 12:36 AM [facility] CO2 17.5(L) 22.0 - 29.0 mmol/L 01/18/2025 12:36 AM [facility] Calcium 8.3(L) 8.6 - 10.5 mg/dL 01/18/2025 12:36 AM [facility] Total Protein 6.5 6.0 - 8.5 g/dL 01/18/2025 12:36 AM [facility] Albumin 3.6 3.5 - 5.2 g/dL 01/18/2025 12:36 AM [facility] ALT (SGPT) 10 1 - 33 U/L 01/18/2025 12:36 AM [facility] AST (SGOT) 19 1 - 32 U/L 01/18/2025 12:36 AM [facility] Alkaline Phosphatase 100 39 - 117 U/L 01/18/2025 12:36 AM [facility] Total Bilirubin 0.3 0.0 - 1.2 mg/dL 01/18/2025 12:36 AM [facility] Globulin 2.9 gm/dL 01/18/2025 12:36 AM [facility] Comment:Calculated Result A/G Ratio 1.2 g/dL 01/18/2025 12:36 AM [facility] BUN/Creatinine Ratio 9.3 7.0 - 25.0 01/18/2025 12:36 AM [facility] Anion Gap 14.5 5.0 - 15.0 mmol/L 01/18/2025 12:36 AM [facility] eGFR 138.1 >60.0 mL/min/1.7 3 01/18/2025 12:36 AM EDT [facility] Blood Venipuncture / Unknown 01/17/2025 11:50 PM EDT 01/18/2025 12:02 AM EDT Narrative [facility] - 01/18/2025 12:36 AM EDT [...] does not include race as a factor Zbe Gonzalez MD LAB BLOOD ORDERABLES Final Resu lt [facility]
[address] [place] [address], * Telemetry Scan (01/17/2025) [facility] Onbase ECG ORDERABLES Final Result * LABS SCANNED (01/17/2025) [facility] BLOOD ORDERABLES Final Re sult from Last [address] [place] [address] [facility] PPO Advance Directives * CPR (Attempt to Resuscitate) (Latest Code Status on File) Date Activated Date Inactivated Comments 01/17/2025 11:22 PM 01/20/2025 2:14 PM Question Answer Comments Code Status (Patient has no pulse and is not breathing): CPR (Attempt to Resuscitate) Medical Interventions (Patie nt has pulse or is breathing): Full Support Level Of Support Discussed With: Patient Care Teams Infant Lead Teacher Relationship Specialty Start Date End Date Destiny Seymour PA [address] [place] [address] [facility] [address] [place] [id number] PCP - General Physician Machinist Job Setter 09/14/22
--- OUTSIDE RECORDS SUMMARY | 2025-04-14 09:07 | XMS_ITS | Clinical Summary ---
Author Organization Healthcare Address [address] [place] [address] Care Team Providers Care It Compliance Analyst Name Role Phone Leah Jasso IRVIN Primary Care Provider [phone] Family History Medical History Relation Name Comments [...] 19+ 3-dose series) 2020 [facility]Y-Pap Smear 2022 [id number] Vaccine (1 - 20 24-25 season) 2025 UKY-Influenza Vaccine (#1) 2025 UKY-Zoster Vaccines (1 [...] age to complete this topic [place] [id number] [place]ICK Care Teams It Compliance Analyst Relationship Specialty Start Date End Date Leah Jasso APRN [address] [facility] [address] [place] [address] PCP - General 11/13/20
== END 2025-04-14 23:59 | disposition home or self-care (01) ==
LOC: RAD 09:00
PROVIDERS: PCP Physician Assistant; Visit Provider Physician Assistant
DX: M67.431 Ganglion, right wrist (principal)
CPT/HCPCS: 73110

== ENCOUNTER 2025-06-04 10:13 | Outpatient (CLI) | payer OTHER, SELFPAY ==
[2025-06-04 09:12] VITALS: BMI 29.7
--- OUTSIDE RECORDS SUMMARY | 2025-06-04 10:16 | XMS_ITS | Clinical Summary ---
Author Organization [facility] [place] Address [address] [facility] [address] [place] [address] Phone Care Team Providers Care Neurophysiologist Name Role Phone Unavailable Primary Care Provider Unavailabl e Allergies No known active allergies Active Problems Problem Noted Date Diagnosed Date S/P RF ablation operation for arrhythmia 023 Overview (03/02/2023): EPS, SVT Ablation 11/25/22-Dr. Demetrio Pearson @ [facility] SVT (supraventricular tachycardia) Surgical History Surgery Date Site/Laterality Comments CYST REMOVAL 08/31/2020 - 09/30/2020 Right R Hand Cyst Removal ABLATION OF DYSRHYTHMIC FOCUS 11/25/2022 EPS, SVT Ablation-Dr. Demetrio Pearson @ [facility] Medical History Medical History Date Comments [...] 2004 HPV (1 - 3-dose series) 2016 DTaP/TDaP/Td (1 - Tdap) 2020 Hepatitis B Vaccine (1 of 3 - 19+ 3-dose series) 2020 Cervical Cancer Screening 2022 Pap Smear 2022 COVID-19 Vaccine (1 - 2024-2 6 season) 2025 Influenza Vaccine (#1) 2025 Meningococcal B Vaccine Aged Out No l onger eligible based on patient's age to complete this topic Pneumococcal Vaccine 0-49 Aged Out No longer eligible based on patient's age to complete this topic Insurance [employer]
--- OUTSIDE RECORDS SUMMARY | 2025-06-04 10:16 | XMS_ITS | Clinical Summary ---
Author Organization Healthcare Address [address] [place] [address] Care Team Providers Care Small Package And Bundle Sorter Clerk Name Role Phone Leah Jasso IRVIN Primary Care Provider [phone] Family History Medical History Relation Name Comments [...] 19+ 3-dose series) 2020 UKY-Pap Smear 2022 [id number] Vaccine (1 - 20 25-26 season) 2025 UKY-Influenza Vaccine (#1) 2025 UKY-Zoster [...] age to complete [place] [address] [place]RICK Care Teams Small Package And Bundle Sorter Clerk Relationship Specialty Start Date End Date Leah Jasso APRN [address] [facility] [address] [place] [address] PCP - General 11/13/20
--- OUTSIDE RECORDS SUMMARY | 2025-06-04 10:16 | XMS_ITS | Clinical Summary ---
Author Organization [facility] Address [address] [place] [address] Care Team Providers Care Professor Of Musicology Name Role Phone Destiny Seymour Primary Care Provider [phone] Allergies Active Allergy Reactions Criticality Noted Date [...] ablation in 2022. Currently follows with cardiology. Family History Medical History Relation Name Comments [...] = 0.6 oz pur e alcohol) socially [facility] [employer] Answer Date Recorded In the past 12 months has th e electric, gas, oil, or water company threatened [...] and heating? Not hard at all 01/17/2025 [facility] Occupat ional Health - Occupational Stress [...] GED or equivalent No 01/17/2025 Preferred Language East Timorese 01/17/2025 PHQ-2 Answer Date Recorded Patient Health [...] HPV VACCINES (1 - 3-dose series) 2016 PAP SMEAR 2022 ANNUAL PHYSICAL 07/12/2022 CHLAMYDIA SCREENING 07/12/2022 HEPATITIS C SCREENING 07/12/2022 INFLUENZA VACCINE 01/31/2025 07/09/2024 TDAP/TD VACCINES (2 - Td or Tdap) 07/09/2034 025 MENINGOCOCCAL B VACCINE Aged Out No l onger eligible based on patient's age to complete this topic Pneumococcal Vaccine 0-49 Aged Out No longer eligible based on patient's age to complete this topic Insurance [place] [id number] [facility] PPO Advance Directives * CPR (Attempt to Resuscitate) (Latest Code Status on File) Date Activated Date Inactivated Comments 01/17/2025 11:22 PM 01/20/2025 2:14 PM Question Answer Comments Code Status (Patient has no pulse and is not breathing): CPR (Attempt to Resuscitate) Medical Interventions (Patie nt has pulse or is breathing): Full Support Level Of Support Discussed With: Patient Care Teams Professor Of Musicology Relationship Specialty Start Date End Date Destiny Seymour PA [address] [place] [address] [place] [id number] PCP - General Physician Professional Tutor 09/14/22
--- NOTE | 2025-06-04 10:25 | XR_ITS ---
FINAL REPORT CLINICAL HISTORY: pre op SMOKER, HTN COMPARISON: None FINDINGS: PA and lateral views of the chest are obtained. There is no prior exam for comparison. The cardiac and mediastinal silhouettes are within normal limits. The lungs are clear. There is no pleural effusion, pneumothorax, or acute osseous abnormality. IMPRESSION: No radiographic evidence of acute cardiac or pulmonary disease. Reviewed, Interpreted and Dictated by Ashely Ortega MD Transcribed by Lucille Lainez Authenticated and . [facility]
[2025-06-04 10:35] LABS: Hematocrit 39.8 % (37.0-47.0); Hemoglobin 13.4 g/dL (12.2-16.2); Immature Granulocytes % 0.2 %; Mean Corpuscular HGB Conc 33.7 g/dL (31.8-35.4); Mean Corpuscular Hemoglobin 28.5 pg (27.0-31.2); Mean Corpuscular Volume 84.5 fl (81-99); Nucleated Red Blood Cells % 0 %; Platelet Count 322 K/mm3 (142-424); Red Blood Count 4.71 M/mm3 (4.20-5.40); Red Cell Distribution Width-SD 36.9 fL; White Blood Count 6.3 K/mm3 (4.8-10.8)
[2025-06-04 10:44] LABS: Chloride 104 mmol/L (98-107); Potassium 4.0 mmoL/L (3.5-5.1); Sodium 142 mmol/L (136-145)
[2025-06-04 10:46] LABS: Blood Urea Nitrogen 9 mg/dl (7-17); Creatinine Clearance Estimated 197 mL/min (50-200); Creatinine,Serum 0.60 mg/dl (0.52-1.04); Estimated Glomerular Filt Rate 123 ml/min (>60); GFR (African American) 149 ML/MIN (>60)
[2025-06-04 10:47] LABS: Anion Gap 19.0 mEq/L (5-15); Calcium 9.0 mg/dl (8.4-10.2); Carbon Dioxide 23 mmol/L (22.0-30.0); Glucose 92 mg/dl (74-100)
== END 2025-06-04 23:59 | disposition home or self-care (01) ==
PROVIDERS: PCP Physician Assistant; Visit Provider Orthopaedic Surgery
DX: Z01.811 Encounter for preprocedural respiratory examination (principal); Z01.812 Encounter for preprocedural laboratory examination; I10 Essential (primary) hypertension; F17.200 Nicotine dependence, unspecified, uncomplicated
CPT/HCPCS: 71046; 80048; 84702; 85025

== ENCOUNTER 2025-06-17 06:05 | Day surgery (SDC) | payer OTHER, SELFPAY ==
[2025-06-04 13:23] VITALS: BMI 29.7
[2025-06-17] VITALS (10 sets, daily range): BP systolic 113–139; BP diastolic 58–82; PULSE 58–88; RESP 16–18; TEMP 36.2–37.3; O2SAT 93–100; BMI 29.7
[2025-06-17] MEDS: LACTATED RINGERS 1000ML 1,000 ML 100 ML IV (06:41)
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
[2025-06-17] MEDS: CEFAZOLIN 2GM VIAL 2 GM (07:30)
[2025-06-17] MEDS: BUPIVACAINE 0.5% W/EPI 1:200,000 30ML VIAL 30 ML IJ (07:55)
[2025-06-17] MEDS: 0.9 % SODIUM CHLORIDE 100 ML IV (07:55)
--- NOTE | 2025-06-17 08:33 | P.OP_ITS ---
Date of procedure: 06/17/25 Pre-op Diagnosis:: Recurrent dorsal ganglion cyst right wrist Post-op Diagnosis:: Same Procedure performed:: Excision dorsal ganglion cyst right wrist Surgeon:: Bucky Gomes DO Portrait Photographer(s):: Yobani ROJAS [employer]:: Era Rea Anesthesia: LMA Estimated blood loss (mL): 0 Operative findings:: Dorsal ganglion cyst large Operative note:: Patient identified preoperatively. Right wrist marked with yes my initials. Transferred operative suite placed upon operating bed. LMA introduced airway secured right upper extremity prepped and draped normal sterile fashion. Once prepped and draped final operative timeout performed to identify proper patient procedure and extremity. Everyone involved in the case agreed. Is no counter indications beginning. Did receive preoperative antibiotics. Marking pen was used to make planned incision over the large dorsal wrist ganglion cyst. Esmarch was used exsanguinate extremity pneumatic tourniquet inflated 250 mmHg. Skin knife was used to incise the skin very careful dissection was taken down there was significant scar tissue from previous excision around this dorsal ganglion cyst meticulous dissection was taken around the entirety of the cyst to identify the base of the cyst once identified Allis clamp was placed around the base dissection at the base of the cyst was performed. And cyst was excised passed to the back table for pathology. This was consistent with a dorsal ganglion cyst. Irrigation of the base of the cyst was performed. Capsule from the dorsal wrist was closed with Vicryl suture subcutaneous with Vicryl 3-0 nylon the skin for closure sterile hand dressing placed patient waken anesthesia taken recovery stable condition. Condition: stable Disposition: PACU Specimens:: Cyst Complications:: None apparent
--- NOTE | 2025-06-17 08:47 | P.PNANES_ITS ---
[facility] Anesthesia Record Part I Anesthesia Record I Intake, IV Amount: 600 Hydration: Adequate Estimated blood loss (mL): 0 Urine output (mL): 0 Blood Pressure: 130/74 SaO2: 96 Pulse Rate: 88 Airway Patency: Patent Respiratory Rate: 18 Temperature: 99.1 F Patient is:: Awake, Drowsy and Stable Stable to PACU at:: 08:50
--- NOTE | 2025-06-17 10:59 | EXP.ANES.II ---
[facility] Anesthesia Record Part II Anesthesia Record Part II Discharge Time: 09:10 Destination: Surgical Day Care (OP Surgery) PACU nurse assessment reviewed?: Yes Patient Condition:: Good Anesthesia Complications:: None Swallowing reflex intact?: Yes Airway Patency: Patent Cyanosis?: No Blood Pressure: 119/58 SaO2: 98 Respiratory Rate: 18 Pulse Rate: 58 Temperature: 97.4 F Mental Status: Alert & Oriented Pain level:: 0 Nausea and/or vomitting:: None Intake, IV Amount: 0 Hydration: Adequate
== END 2025-06-17 09:41 | disposition home or self-care (01) ==
PROVIDERS: PCP Physician Assistant; Visit Provider Orthopaedic Surgery
PROC: (CPT 25112; principal; 2025-06-17 07:30)
DX: M67.431 Ganglion, right wrist (principal); I10 Essential (primary) hypertension; Z88.8 Allergy status to other drugs, medicaments and biological substances; Z88.1 Allergy status to other antibiotic agents
CPT/HCPCS: 25112; 96374; J0690; J1100; J1200; J2003; J2250; J2405; J2704; J3010; J7120